=== PATIENT | female | born 1935 | race Caucasian/White ===

== ENCOUNTER 2016-08-30 09:26 | Inpatient (IN) | payer OTHER ==
[2016-08-30] MEDS ORDERED: methylPREDNISolone NA SUCC 125 MG/2 ML VIAL ONE (09:33)
[2016-08-30] MEDS ORDERED: ALBUTEROL SO4 0.083% IH SOL 2.5 MG/3 ML VIAL.NEB. NEB ONE ×2 (09:33)
[2016-08-30] MEDS ORDERED: methylPREDNISolone NA SUCC 125 MG/2 ML VIAL IVPB ONE (09:33)
--- NOTE | 2016-08-30 09:40 | PDOC ---
History of Present Illness - General History Source: Patient, EMS, Family, Old Records Exam Limitations: Other (respiratory distress) - History of Present Illness Initial Comments: 08/30/16 09:43 The patient is an 81 year old female with past medical history of hypertension, hyperlipidemia, diabetes mellitus, CAD (with stents x2), COPD, CHF who arrives to the ED via EMS from home in respiratory distress that began 30 minutes prior to arrival. The patient states that she was able to sleep the entire night normally. When EMS arrived, the patients O2 sat was in the 80s. After receiving 10 of decadron and 3 duonebs, the patients O2 sat went up to 90. As per family, the patient was complaining of shortness of breath all week. PCP: Dr. Aman Russell <Fide Schmidt - Last Filed: 08/30/16 09:57> <Joseph Bustos - Last Filed: 08/30/16 10:16> - General Stated Complaint: DIFFICULTY BREATHING Time Seen by Provider: 08/30/16 09:32 Past History <Fide Schmidt - Last Filed: 08/30/16 09:57> - Past Medical History Anemia: No Asthma: No Cancer: No Cardiac Disorders: Yes (s/p stents x 2) CVA: No COPD: Yes CHF: Yes Dementia: No Diabetes: Yes GI Disorders: No Disorders: No HTN: Yes Hypercholesterolemia: Yes Liver Disease: No Seizures: No Thyroid Disease: No - Surgical History Abdominal Surgery: No Appendectomy: No Cardiac Surgery: Yes (stents) Cholecystectomy: No Lung Surgery: No Neurologic Surgery: No Orthopedic Surgery: Yes (Left wrist) - Immunization History Immunization Up to Date: Yes - Psycho/Social/Smoking Cessation Hx Anxiety: No Suicidal Ideation: No Smoking Status: No Smoking History: Current some day smoker Have you smoked in the past 12 months: Yes Number of Cigarettes Smoked Daily: 5 'Breaking Loose' booklet given: 08/31/11 Hx Alcohol Use: No Drug/Substance Use Hx: No Substance Use Type: None Hx Substance Use Treatment: No <Joseph Bustos - Last Filed: 08/30/16 10:16> - Past Medical History Allergies/Adverse Reactions: Allergies Allergy/AdvReac Type Severity Reaction Status Date / Time No Known Allergies Allergy Verified 11/01/13 14:51 Home Medications: Ambulatory Orders Diltiazem Cd [Cardizem Cd -] 240 mg PO DAILY 02/25/12 Rosuvastatin Calcium [Crestor] 20 mg PO HS 02/25/12 Aspirin [ASA -] 81 mg PO DAILY #0 tab.chew 02/29/12 Nicotine Patch [Nicoderm Patch -] 21 mg TD DAILY #0 patch 02/29/12 Glyburide 5 mg PO BID 11/01/13 Albuterol 2.5/Ipratropium 0.5 [Duoneb -] 1 neb NEB TIDR #120 vial 11/08/13 Furosemide [Lasix -] 40 mg PO DAILY #30 tablet 11/08/13 Metformin HCl [Glucophage -] 1,000 mg PO BIDI #60 tablet 11/08/13 Prednisone [Deltasone -] 10 mg PO DAILY #120 tablet 11/08/13 Salmeterol/Fluticasone [Advair 250Mcg/50Mcg -] 1 inh PO BID #1 11/08/13 Sitagliptin Phosphate [Januvia -] 50 mg PO DAILY@0700 #30 tablet 11/08/13 Valsartan [Diovan] 320 mg PO DAILY #30 tablet 11/08/13 Review of Systems - Review of Systems Able to Perform ROS?: No (clinical condition ) <Fide Schmidt - Last Filed: 08/30/16 09:57> *Physical Exam - Physical Exam Comments: 08/30/16 09:43 GENERAL: Awake, alert, oriented x3, in moderate distress HEAD: No signs of trauma ENT: Auricles normal inspection, hearing grossly normal, nares patent, oropharynx clear without exudates. Moist mucosa NECK: Positive JVD. Supple, no lymphadenopathy, or masses LUNGS: Wheezes in all lung zamora. No rales, no crackles HEART: Regular, tachycardic. Normal S1 and S2, no murmurs, rubs or gallops ABDOMEN: Soft, nontender, normoactive bowel sounds. No guarding, no rebound. No masses EXTREMITIES: Normal range of motion, no edema. No clubbing or cyanosis. No cords, erythema, or tenderness NEUROLOGICAL: Cranial nerves II through XII grossly intact. Normal speech. SKIN: Warm, Dry, normal turgor, no rashes or lesions noted. <Fide Schmidt - Last Filed: 08/30/16 09:57> Heart Score/ECG Review - ECG Intrepretation Comment:: 08/30/16 09:58 Squad ECG en route to ER: Sinus tachycardia at [address] and T wave changes ECG obtained at 09:35: Sinus tachycardia at 131 bpm. Possible left atrial enlargement, unchanged from prior ECG 01/2012. <BrayanFide - Last Filed: 08/30/16 09:57> ED Treatment Course - LABORATORY CBC & Chemistry Diagram: 08/30/16 09:31 08/30/16 09:31 - RADIOLOGY Radiograph Interpretation: 08/30/16 09:58 CXR as reviewed by Dr. Caldwell reports large heart with unfolded aorta. Congestive findings with right pleural fluid. <BrayanFide - Last Filed: 08/30/16 09:57> - LABORATORY CBC & Chemistry Diagram: 08/30/16 09:31 08/30/16 09:31 - RADIOLOGY Radiology Studies Ordered: Category Date Time Status CHEST X-RAY PORTABLE* [RAD] Stat Radiology 08/30/16 09:33 Ordered <Joseph Bustos - Last Filed: 08/30/16 10:16> Medical Decision Making - Critical Care Time Total Critical Care Time (minutes): 60 Critical Care Statement: The care of this patient involved high complexity decision making to prevent further life threatening deterioration of the patient 's condition and/or to evalute & treat vital organ system(s) failure or risk of failure. - Medical Decision Making 08/30/16 09:57 ABG obtained, patient placed on BiPAP. Solumedrol, lasix administered. 08/30/16 10:00 Dr. Wise present in ED, case and plan discussed. Patient will be admitted under his service. Call placed upstairs to ICU. Case discussed with MITESH Holder. Patient admitted to ICU. <sannataylorFide - Last Filed: 08/30/16 09:57> *DC/Admit/Observation/Transfer - Attestations Scribe Attestion: 08/30/16 09:56 Documentation prepared by Fide Schmidt, acting as medical assistant secretary for Joseph Bustos DO. <BrayanFide - Last Filed: 08/30/16 09:57> - Discharge Dispostion Admit: Yes - Attestations Physician Attestion: 08/30/16 09:39 I, Dr. Joseph Bustos, attest that this document has been prepared under my direction and personally reviewed by me in its entirety. I further attest, that it accurately reflects all work, treatment, procedures and medical decision -making performed by me. <Joseph Bustos - Last Filed: 08/30/16 10:16> Diagnosis at time of Disposition: COPD (chronic obstructive pulmonary disease) with acute bronchitis, Dyslipidemia Respiratory failure Qualifiers: Chronicity: acute Respiratory failure complication: hypoxia and hypercapnia Qualified Code(s): J96.01 - Acute respiratory failure with hypoxia; J96.02 - Acute respiratory failure with hypercapnia COPD (chronic obstructive pulmonary disease) Qualifiers: COPD type: chronic bronchitis Chronic bronchitis type: unspecified Qualified Code(s): J42 - Unspecified chronic bronchitis CHF (congestive heart failure) Qualifiers: Congestive heart failure type: unspecified congestive heart failure type Congestive heart failure chronicity: acute on chronic Qualified Code(s): I50.9 - Heart failure, unspecified Diabetes Qualifiers: Diabetes mellitus type: other specified (including YULISA) Diabetes mellitus complication status: with unspecified complications Diabetes mellitus care home insulin use: with care home use Qualified Code(s): E13.8 - Other specified diabetes mellitus with unspecified complications; Z79.4 - 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
[2016-08-30] MEDS ORDERED: DEXAMETHASONE SOD PHOSPHATE 10 MG/1 ML VIAL ONE (09:44)
[2016-08-30 09:45] LABS: ARTERIAL BLD GAS O2 SATURATION 93.3 % (90-98.9); ARTERIAL BLOOD GAS BASE EXCESS -5.6 meq/l (-2-2); ARTERIAL BLOOD GAS HCO3 22.5 meq/L (22-26); ARTERIAL BLOOD GAS PO2 81.8 mmHg (68-100)
[2016-08-30] MEDS ORDERED: ALBUTEROL SO4 2.5/IPRATROPIUM 0.5 INH SOL 3 ML VIAL.NEB. NEB ONE (09:45)
[2016-08-30 09:46] LABS: ALLENS TEST POSITIVE; ART PUNCT SITE LEFT RADIAL; LPM/O2% 5L; PT. ON O2? YES; TYPE OF O2 AEROSOL
[2016-08-30 09:49] LABS: BASOPHIL 0.5 % (0-2.0); EOSINOPHIL 3.2 % (0-4.5); MCH 30.1 pg (25.7-33.7); MCHC 32.5 g/dl (32.0-36.0); MEAN CELL VOLUME 92.4 fl (80-96); MEAN PLT VOLUME 10.2 fl (7.5-11.1); NEUTROPHILS 50.2 % (42.8-82.8); PLATELET COUNT 217 K/MM3 (134-434); RDW 14.4 % (11.6-15.6); WHITE BLOOD COUNT 13.1 K/mm3 (4.0-10.0)
[2016-08-30 09:50] LABS: ARTERIAL BLOOD GAS pH 7.21 (7.35-7.45)
[2016-08-30 09:53] LABS: METHEMOGLOBIN 0.8 % (0.4-1.5)
[2016-08-30] MEDS ORDERED: FUROSEMIDE 40 MG/4 ML INJECTABLE VIAL IVPUSH ONE (09:59)
[2016-08-30] MEDS ORDERED: CEFTRIAXONE 1 GM in DEXTROSE 5%-WATER - 50 ML IVPB ONE (09:59)
[2016-08-30] MEDS ORDERED: FUROSEMIDE 40 MG/4 ML INJECTABLE VIAL ONE ×2 (10:00→17:17)
[2016-08-30] MEDS ORDERED: CEFTRIAXONE 50 ML ONE (10:00)
[2016-08-30 10:08] LABS: INR 0.96 (0.82-1.09); PROTHROMBIN TIME (PATIENT) 10.6 SEC (9.98-11.88)
--- NOTE | 2016-08-30 10:12 | HP ---
Admitting History and Physical - Admission History of Present Illness: 81 Y/O FEMALE WITH H/O COPD AND CHF PRESENTS WITH SIGNIFICANT SOB THAT BEGAN THIS AM PT STATES HAS BEEN GETTING MORE SOB ON EXERTION RECENTLY - Past Medical History Cardiovascular: Yes: CAD (S/P STENTING), HTN, Hyperlipdemia Pulmonary: Yes: COPD, O2 Dependent Musculoskeletal: Yes: Chronic low back pain Endocrine: Yes: Diabetes Mellitus - Smoking History Smoking history: Current some day smoker Have you smoked in the past 12 months: Yes Aproximately how many cigarettes per day: 5 - Alcohol/Substance Use Hx Alcohol Use: No Home Medications - Allergies Allergies/Adverse Reactions: Allergies Allergy/AdvReac Type Severity Reaction Status Date / Time No Known Allergies Allergy Verified 08/30/16 10:14 - Home Medications Home Medications: Ambulatory Orders Diltiazem Cd [Cardizem Cd -] 240 mg PO DAILY 02/25/12 Rosuvastatin Calcium [Crestor] 20 mg PO HS 02/25/12 Aspirin [ASA -] 81 mg PO DAILY #0 tab.chew 02/29/12 Nicotine Patch [Nicoderm Patch -] 21 mg TD DAILY #0 patch 02/29/12 Glyburide 5 mg PO BID 11/01/13 Albuterol 2.5/Ipratropium 0.5 [Duoneb -] 1 neb NEB TIDR #120 vial 11/08/13 Furosemide [Lasix -] 40 mg PO DAILY #30 tablet 11/08/13 Metformin HCl [Glucophage -] 1,000 mg PO BIDI #60 tablet 11/08/13 Prednisone [Deltasone -] 10 mg PO DAILY #120 tablet 11/08/13 Salmeterol/Fluticasone [Advair 250Mcg/50Mcg -] 1 inh PO BID #1 11/08/13 Sitagliptin Phosphate [Januvia -] 50 mg PO DAILY@0700 #30 tablet 11/08/13 Valsartan [Diovan] 320 mg PO DAILY #30 tablet 11/08/13 Review of Systems - Review of Systems Cardiovascular: reports: Chest Pain Respiratory: reports: SOB, SOB on Exertion Gastrointestinal: denies: Abdominal Pain Genitourinary: reports: No Symptoms Neurological: denies: Change in LOC, Change in Speech Physical Examination Cardiovascular: Yes: Murmur, S1, S2 Respiratory: Yes: Diminished, On Venti-Mask, Rales Gastrointestinal: Yes: Normal Bowel Sounds, Soft Edema: Yes Labs: CBC, BMP 08/30/16 09:31 Imaging - Results Chest X-ray: Image Reviewed Problem List - Problems (1) CHF (congestive heart failure) Assessment/Plan: IV LASIX OXYGEN FOLLOW LABS CARDIO ICU MONITORING Code(s): I50.9 - HEART FAILURE, UNSPECIFIED Qualifiers: Congestive heart failure type: unspecified congestive heart failure type Congestive heart failure chronicity: acute on chronic Qualified Code(s): I50.9 - Heart failure, unspecified (2) COPD (chronic obstructive pulmonary disease) Assessment/Plan: NEBS STEROIDS PULM Code(s): J44.9 - CHRONIC OBSTRUCTIVE PULMONARY DISEASE, UNSPECIFIED Qualifiers : COPD type: chronic bronchitis Chronic bronchitis type: unspecified Qualified Code(s): J42 - Unspecified chronic bronchitis (3) Diabetes Assessment/Plan: BGM INSULIN Code(s): E11.9 - TYPE 2 DIABETES MELLITUS WITHOUT COMPLICATIONS Qualifiers: Diabetes mellitus type: other specified (including YULISA) Diabetes mellitus complication status: with unspecified complications Diabetes mellitus rat exterminator insulin use: with rat exterminator use Qualified Code(s): E13.8 - Other specified diabetes mellitus with unspecified complications (4) Respiratory failure Assessment/Plan: BIPAP ABOVE PT NOT A DNI Code(s): J96.90 - RESPIRATORY FAILURE, UNSP, UNSP W HYPOXIA OR HYPERCAPNIA Qualifiers: Chronicity: acute Respiratory failure complication: hypoxia and hypercapnia Qualified Code(s): J96.01 - Acute respiratory failure with hypoxia (5) CAD S/P percutaneous coronary angioplasty Assessment/Plan: FOLLOW CE Code(s): I25.10 - ATHSCL HEART DISEASE OF [place] CORONARY ARTERY W/O ANG PCTRS Z98.61 - CORONARY ANGIOPLASTY STATUS
[2016-08-30 10:14] LABS: ALBUMIN 3.6 g/dl (3.4-5.0); ANION GAP 11 (8-16); BILIRUBIN,TOTAL 0.4 mg/dL (0.2-1.0); CALCIUM 8.8 mg/dL (8.5-10.1); CO2 24 mmol/L (21-32); GLUCOSE,RANDOM 298 mg/dL (74-106); SGOT/AST 24 U/L (15-37); SGPT/ALT 21 U/L (12-78)
[2016-08-30 10:18] VITALS: BMI 27.4
[2016-08-30 10:18] LABS: ALK PHOS 83 U/L (45-117); TOT PROT 6.9 g/dl (6.4-8.2); TROPONIN I 0.03 ng/ml (0.00-0.05)
[2016-08-30 10:28] LABS: URINE APPEARANCE CLEAR; URINE BILIRUBIN NEGATIVE (NEGATIVE); URINE COLOR STRAW; URINE GLUCOSE (UA) 3+ (NEGATIVE); URINE KETONE NEGATIVE (NEGATIVE); URINE LEUK ESTERASE NEGATIVE (NEGATIVE); URINE NITRITE NEGATIVE (NEGATIVE); URINE UROBILINOGEN NEGATIVE E.U./dl (0.2-1.0)
[2016-08-30 10:30] LABS: URINE BLOOD 1+ (NEGATIVE); URINE PROTEIN 2+ (NEGATIVE)
[2016-08-30 10:33] LABS: GRANULAR CASTS 3 /lpf; URINE HYALINE CAST 1 /lpf; URINE MUCUS RARE; URINE RBC 3 /hpf (0-3); URINE WBC 12 /hpf (3-5)
[2016-08-30] MEDS ORDERED: POTASSIUM CHLORIDE TABS 20 MEQ TABLET.ER (FP) PO ONE ×2 (10:45→10:55)
[2016-08-30 11:01] LABS: ALLENS TEST POSITIVE; ART PUNCT SITE RIGHT RADIAL; ARTERIAL BLD GAS O2 SATURATION 99.6 % (90-98.9); ARTERIAL BLOOD GAS BASE EXCESS -0.5 meq/l (-2-2); ARTERIAL BLOOD GAS HCO3 25.8 meq/L (22-26); ARTERIAL BLOOD GAS pH 7.31 (7.35-7.45); LPM/O2% 50%; PT. ON O2? YES; TYPE OF O2 BIPAP
[2016-08-30 11:02] LABS: VENT RATE 16
[2016-08-30] MEDS ORDERED: ACETAMINOPHEN 325 MG TABLET (FP) PO PRN (11:09)
[2016-08-30] MEDS: PANTOPRAZOLE 40 MG TABLET (FP) PO SCH (11:32)
[2016-08-30] MEDS: ALBUTEROL SO4 2.5/IPRATROPIUM 0.5 INH SOL 3 ML VIAL.NEB. NEB SCH ×3 (12:39→23:31)
--- NOTE | 2016-08-30 13:09 | CONSULT ---
Consult Consult Specialty:: PULMONARY / CRITICAL CARE MEDICINE Referred by:: Dr Russell Reason for Consultation:: respiratory failure - History of Present Illness Chief Complaint: SOB History of Present Illness: Briefly, 81 y/o woman with poorly controlled DM2, COPD, CAD, CHF (on home Oxygen 2L) who presents to the ED via EMS with SOB and hypoxia. She denied fevers, chills, cough and sick contacts. In the ED she was in significant distress, ABG showed mixed hypercapnic/hypoxemic respiratory failure. She was given nebs, steroids, abx, Lasix and placed on NIPPV. CXR shows pulm edema, BNP is >1300. - History Source History Provided By: Patient, Family Member, Medical Record Limitations to Obtaining History: No Limitations - Past Medical History Cardio/Vascular: Yes: CAD (S/P STENTING), HTN, Hyperlipdemia Pulmonary: Yes: COPD, O2 Dependent ...: No Musculoskeletal: Yes: Chronic low back pain Endocrine: Yes: Diabetes Mellitus - Alcohol/Substance Use Hx Alcohol Use: No - Smoking History Smoking history: Former smoker Have you smoked in the past 12 months: No Aproximately how many cigarettes per day: 5 If you are a former smoker, when did you quit?: 3-4 years ago Home Medications - Allergies Allergies/Adverse Reactions: Allergies Allergy/AdvReac Type Severity Reaction Status Date / Time No Known Allergies Allergy Verified 08/30/16 10:14 - Home Medications Home Medications: Ambulatory Orders Diltiazem Cd [Cardizem Cd -] 240 mg PO DAILY 02/25/12 Rosuvastatin Calcium [Crestor] 20 mg PO HS 02/25/12 Aspirin [ASA -] 81 mg PO DAILY #0 tab.chew 02/29/12 Nicotine Patch [Nicoderm Patch -] 21 mg TD DAILY #0 patch 02/29/12 Glyburide 5 mg PO BID 11/01/13 Albuterol 2.5/Ipratropium 0.5 [Duoneb -] 1 neb NEB TIDR #120 vial 11/08/13 Furosemide [Lasix -] 40 mg PO DAILY #30 tablet 11/08/13 Metformin HCl [Glucophage -] 1,000 mg PO BIDI #60 tablet 11/08/13 Prednisone [Deltasone -] 10 mg PO DAILY #120 tablet 11/08/13 Salmeterol/Fluticasone [Advair 250Mcg/50Mcg -] 1 inh PO BID #1 11/08/13 Sitagliptin Phosphate [Januvia -] 50 mg PO DAILY@0700 #30 tablet 11/08/13 Valsartan [Diovan] 320 mg PO DAILY #30 tablet 11/08/13 Family Disease History - Family Disease History Family History: Unremarkable Review of Systems - Review of Systems Constitutional: reports: Weakness. denies: Chills, Fever Eyes: reports: No Symptoms HENT: reports: No Symptoms Neck: reports: No Symptoms Cardiovascular: reports: Shortness of Breath Respiratory: reports: Exercise Intolerance, Orthopnea, SOB on Exertion, Wheezing Gastrointestinal: reports: No Symptoms Genitourinary: reports: No Symptoms Integumentary: reports: No Symptoms Neurological: reports: No Symptoms Endocrine: reports: No Symptoms Physical Exam Vital Signs: Vital Signs Temperature 97.4 F L 08/30/16 12:10 Pulse Rate 98 H 08/30/16 12:51 Respiratory Rate 26 H 08/30/16 12:51 Blood Pressure 124/86 08/30/16 12:51 O2 Sat by Pulse Oximetry (%) 95 08/30/16 12:50 Constitutional: Yes: Mild Distress Eyes: Yes: WNL HENT: Yes: WNL Neck: Yes: WNL Cardiovascular: Yes: Tachycardia, S1, S2 Respiratory: Yes: Rales Gastrointestinal: Yes: Normal Bowel Sounds, Abdomen, Obese. No: Tenderness Musculoskeletal: Yes: WNL Extremities: Yes: WNL Edema: Yes Edema: LLE: Trace, RLE: Trace Peripheral Pulses WNL: Yes Integumentary: Yes: WNL Neurological: Yes: WNL Labs: CBC, BMP 08/30/16 09:31 08/30/16 09:31 Imaging - Results Chest X-ray: Report Reviewed, Image Reviewed Problem List - Problems (1) CHF (congestive heart failure) Code(s): I50.9 - HEART FAILURE, UNSPECIFIED Qualifiers: Congestive heart failure type: unspecified congestive heart failure type Congestive heart failure chronicity: acute on chronic Qualified Code(s): I50.9 - Heart failure, unspecified (2) COPD (chronic obstructive pulmonary disease) Code(s): J44.9 - CHRONIC OBSTRUCTIVE PULMONARY DISEASE, UNSPECIFIED Qualifiers : COPD type: chronic bronchitis Chronic bronchitis type: unspecified Qualified Code(s): J42 - Unspecified chronic bronchitis (3) Diabetes Code(s): E11.9 - TYPE 2 DIABETES MELLITUS WITHOUT COMPLICATIONS Qualifiers: Diabetes mellitus type: other specified (including YULISA) Diabetes mellitus complication status: with unspecified complications Diabetes mellitus custodial insulin use: with custodial use Qualified Code(s): E13.8 - Other specified diabetes mellitus with unspecified complications (4) Respiratory failure Code(s): J96.90 - RESPIRATORY FAILURE, UNSP, UNSP W HYPOXIA OR HYPERCAPNIA Qualifiers: Chronicity: acute Respiratory failure complication: hypoxia and hypercapnia Qualified Code(s): J96.01 - Acute respiratory failure with hypoxia (5) CAD S/P percutaneous coronary angioplasty Code(s): I25.10 - ATHSCL HEART DISEASE OF [place] CORONARY ARTERY W/O ANG PCTRS Z98.61 - CORONARY ANGIOPLASTY STATUS Assessment/Plan Hypercapnic/Hypoxemic respiratory failure likely volume overload (pulm edema) markedly improved with diuresis CHF CAD DM2 COPD on home O2 -Lasix for net out -NIPPV as needed -Nebs -Quick steroid taper - she is not bronchospastic -Restart home meds -Diabetic diet -Fingersticks/Insulin as needed Monitor in ICU Thank you for this interesting consult Abilio Gardiner Pulm/Critical Care PLATE FORMER CCT 45min
[2016-08-30 14:26] LABS: TROPONIN I 0.13 ng/ml (0.00-0.05)
[2016-08-30] MEDS: methylPREDNISolone NA SUCC 40 MG/1 ML VIAL IVPB SCH ×2 (14:44→21:00)
[2016-08-30] MEDS: FUROSEMIDE 40 MG/4 ML INJECTABLE VIAL IVPB SCH (14:44)
[2016-08-30] MEDS: NITROGLYCERIN 2% OINTMENT - 1GM PACKET TD SCH ×2 (14:45→19:23)
--- NOTE | 2016-08-30 14:59 | CON.CARD ---
Consult Consult Specialty:: cardiology Referred by:: carla Reason for Consultation:: chf - History of Present Illness Chief Complaint: sob History of Present Illness: 81 year old female with pmhx of htn, hld, dm, cad s/p stents in past, ?systolic chf, and copd presenting with sob. Patient reports her sob has been worsening but this morning acutely worsened at rest. No chest pain or palpitations. Does not always take her meds. Does not take water pills which had been recommended in past. - History Source History Provided By: Patient, Family Member, Medical Record - Past Medical History Cardio/Vascular: Yes: CAD (S/P STENTING), HTN, Hyperlipdemia Pulmonary: Yes: COPD, O2 Dependent ...: No Musculoskeletal: Yes: Chronic low back pain Endocrine: Yes: Diabetes Mellitus - Alcohol/Substance Use Hx Alcohol Use: No - Smoking History Smoking history: Former smoker Have you smoked in the past 12 months: No Aproximately how many cigarettes per day: 5 If you are a former smoker, when did you quit?: 3-4 years ago Home Medications - Allergies Allergies/Adverse Reactions: Allergies Allergy/AdvReac Type Severity Reaction Status Date / Time No Known Allergies Allergy Verified 08/30/16 10:14 - Home Medications Home Medications: Ambulatory Orders Diltiazem Cd [Cardizem Cd -] 240 mg PO DAILY 02/25/12 Rosuvastatin Calcium [Crestor] 20 mg PO HS 02/25/12 Aspirin [ASA -] 81 mg PO DAILY #0 tab.chew 02/29/12 Nicotine Patch [Nicoderm Patch -] 21 mg TD DAILY #0 patch 02/29/12 Glyburide 5 mg PO BID 11/01/13 Albuterol 2.5/Ipratropium 0.5 [Duoneb -] 1 neb NEB TIDR #120 vial 11/08/13 Furosemide [Lasix -] 40 mg PO DAILY #30 tablet 11/08/13 Metformin HCl [Glucophage -] 1,000 mg PO BIDI #60 tablet 11/08/13 Prednisone [Deltasone -] 10 mg PO DAILY #120 tablet 11/08/13 Salmeterol/Fluticasone [Advair 250Mcg/50Mcg -] 1 inh PO BID #1 11/08/13 Sitagliptin Phosphate [Januvia -] 50 mg PO DAILY@0700 #30 tablet 11/08/13 Valsartan [Diovan] 320 mg PO DAILY #30 tablet 11/08/13 Vital Signs: Vital Signs Temperature 97.4 F L 08/30/16 12:10 Pulse Rate 89 08/30/16 13:55 Respiratory Rate 26 H 08/30/16 12:51 Blood Pressure 124/86 08/30/16 12:51 O2 Sat by Pulse Oximetry (%) 97 08/30/16 13:55 Constitutional: Yes: No Distress Respiratory: Yes: Diminished (bibasilar crackles) Gastrointestinal: Yes: Normal Bowel Sounds, Soft Cardiovascular: Yes: Regular Rate and Rhythm, Tachycardia JVD: Yes Carotid Bruit: No Heart Sounds: Yes: S1, S2 Murmur: Yes: Systolic Murmur, Grade 3 (HSM 3/6 apex to axilla) Edema: LLE: Trace, RLE: Trace - Other Data Labs, Other Data: INR, PTT INR 0.96 (0.82-1.09) 08/30/16 09:31 Troponin, BNP 08/30/16 13:56 Troponin I 0.13 H Troponin, BNP 08/30/16 13:56 Troponin I 0.13 H Imaging - Results X-ray: Report Reviewed EKG: Image Reviewed Problem List - Problems (1) CHF (congestive heart failure) Code(s): I50.9 - HEART FAILURE, UNSPECIFIED Qualifiers: Congestive heart failure type: unspecified congestive heart failure type Congestive heart failure chronicity: acute on chronic Qualified Code(s): I50.9 - Heart failure, unspecified (2) CAD S/P percutaneous coronary angioplasty Code(s): I25.10 - ATHSCL HEART DISEASE OF [place] CORONARY ARTERY W/O ANG PCTRS Z98.61 - CORONARY ANGIOPLASTY STATUS Assessment/Plan 81 year old female with pmhx of htn, hld, dm, cad s/p stents in past, ?systolic chf, and copd presenting with sob. 1) Acute on chronic systolic CHF Responded well to IV lasix would lower to 40mg IV bid monitor I/O's and lytes and bun/cr Daily weights Continue home valsartan Will try to clarify why not on Bblocker and on ccb when patient with cad and CHF Need to get echo results from Dr. Russell's office tomorrow as reports leaky valve and with MR murmur EKG: sinus tachy with inferior and anteroseptal infarct no acute st changes. Monitor on tele. Trend CE's x3 Daily EKG 2) CAD -aspirin/statin -Echo results -Will attempt to find out why not on bblocker chronically -NST 07/18/15 with moderate inferior and inferolateral scar Will follow with you
[2016-08-30] MEDS ORDERED: PT OWN MED DRAWER 7, Y5N ONE (21:36)
[2016-08-30] MEDS: MUPIROCIN 2% TOPICAL OINTMENT FOR DECOLONIZATION NS SCH (21:52)
[2016-08-30] MEDS: ROSUVASTATIN CA 20 MG TABLET (FP) PO SCH (21:53)
[2016-08-30] MEDS: CHLORHEXIDINE GLUCONATE 4% CLEANSER FOR DECOLONIZATION TP SCH (21:53)
[2016-08-30] MEDS: INSULIN SLIDING SCALE (NOVOLOG) 1 VIAL SQ SCH (22:18)
[2016-08-31] MEDS: methylPREDNISolone NA SUCC 40 MG/1 ML VIAL IVPB SCH ×4 (03:00→21:00)
[2016-08-31] MEDS ORDERED: INSULIN (NOVOLOG) ASPART 100 UNITS/ML 10ML VIAL ONE (03:08)
[2016-08-31] MEDS ORDERED: INSULIN REGULAR HUMAN 100 UNITS/ML *VIAL ONE (03:08)
[2016-08-31] MEDS: FUROSEMIDE 40 MG/4 ML INJECTABLE VIAL IVPB SCH (05:59)
[2016-08-31] MEDS: NITROGLYCERIN 2% OINTMENT - 1GM PACKET TD SCH ×4 (05:59→17:22)
[2016-08-31] MEDS: INSULIN SLIDING SCALE (NOVOLOG) 1 VIAL SQ SCH ×4 (06:00→22:43)
[2016-08-31 06:02] LABS: MCH 29.6 pg (25.7-33.7); MCHC 33.2 g/dl (32.0-36.0); MEAN CELL VOLUME 89.2 fl (80-96); MEAN PLT VOLUME 10.6 fl (7.5-11.1); NEUTROPHILS 94.6 % (42.8-82.8); PLATELET COUNT 187 K/MM3 (134-434); RDW 14.4 % (11.6-15.6); WHITE BLOOD COUNT 12.7 K/mm3 (4.0-10.0)
[2016-08-31] MEDS: ALBUTEROL SO4 2.5/IPRATROPIUM 0.5 INH SOL 3 ML VIAL.NEB. NEB SCH ×4 (06:13→23:12)
[2016-08-31 06:38] LABS: ALBUMIN 3.9 g/dl (3.4-5.0); ANION GAP 13 (8-16); CALCIUM 9.4 mg/dL (8.5-10.1); CO2 29 mmol/L (21-32); CREATININE 1.4 mg/dL (0.55-1.02); GLUCOSE,RANDOM 238 mg/dL (74-106)
[2016-08-31 06:42] LABS: ALK PHOS 79 U/L (45-117); BILIRUBIN,TOTAL 0.5 mg/dL (0.2-1.0); SGOT/AST 22 U/L (15-37); SGPT/ALT 23 U/L (12-78); TOT PROT 7.3 g/dl (6.4-8.2); TROPONIN I 0.21 ng/ml (0.00-0.05)
[2016-08-31] MEDS ORDERED: PT OWN MED DRAWER 7, Y5N ONE ×2 (08:59→20:47)
[2016-08-31] MEDS: VALSARTAN 160 MG TABLET (UD) PO SCH (09:06)
[2016-08-31] MEDS: PANTOPRAZOLE 40 MG TABLET (FP) PO SCH (09:06)
[2016-08-31] MEDS: ASPIRIN 81 MG CHEWABLE TABLETS PO SCH (09:06)
[2016-08-31] MEDS: MUPIROCIN 2% TOPICAL OINTMENT FOR DECOLONIZATION NS SCH ×2 (09:07→21:02)
--- NOTE | 2016-08-31 10:11 | EKG ---
Test Reason : Blood Pressure : / mmHG Vent. Rate : 086 BPM Atrial Rate : 086 BPM P-R Int : 232 ms QRS Dur : 120 ms QT Int : 450 ms P-R-T Axes : 050 027 106 degrees QTc Int : 538 ms SINUS RHYTHM WITH 1ST DEGREE A-V BLOCK LEFT VENTRICULAR HYPERTROPHY WITH QRS WIDENING LATERAL INFARCT (CITED ON OR BEFORE 30-AUG-2016) INFERIOR INFARCT (CITED ON OR BEFORE 30-AUG-2016) ABNORMAL ECG WHEN COMPARED WITH ECG OF 30-AUG-2016 09:35, [place] INTERVAL HAS INCREASED VENT. RATE HAS DECREASED BY [address] SEGMENT CHANGES Confirmed by OSIRIS ANDRADE MD ([id number]) on 08/31/2016 10:11:17 AM Referred By: JANICE HARDY Confirmed By:OSIRIS ANDRADE MD
--- NOTE | 2016-08-31 10:39 | EKG ---
Test Reason : Blood Pressure : / mmHG Vent. Rate : 131 BPM Atrial Rate : 131 BPM P-R Int : 178 ms QRS Dur : 112 ms QT Int : 284 ms P-R-T Axes : 049 052 047 degrees QTc Int : 419 ms SINUS TACHYCARDIA POSSIBLE LEFT ATRIAL ENLARGEMENT CANNOT RULE OUT INFERIOR INFARCT , AGE UNDETERMINED POSSIBLE ANTERIOR INFARCT , AGE UNDETERMINED ABNORMAL ECG WHEN COMPARED WITH ECG OF 02-NOV-2013 09:12, VENT. RATE HAS INCREASED Confirmed by LUPE PACHECO, OSIRIS ([id number]) on 08/31/2016 10:39:15 AM Referred By: Confirmed By:OSIRIS ANDRADE MD
[2016-08-31 12:10] LABS: TROPONIN I 0.15 ng/ml (0.00-0.05)
--- NOTE | 2016-08-31 12:23 | PN ---
Physical Exam: SUBJECTIVE: Patient states she feels better this morning, but was not able to sleep until 7am. Denies current shortness of breath, chest pain, nausea, vomiting, fever, chills. She states she began having bilateral leg cramps, for which she has to sit up until they anastasiya. OBJECTIVE: Vital Signs Period Temp Pulse Resp BP Sys/Lam Pulse Ox Last 24 Hr 97.6 F-98.3 F 22-98 20-94 119-167/58-94 95-98 GENERAL: The patient is awake, alert, and fully oriented, in no acute distress. HEAD: Normal with no signs of trauma. EYES: PERRL, extraocular movements intact, sclera anicteric, conjunctiva clear. No ptosis. ENT: Ears normal, nares patent, oropharynx clear without exudates, moist mucous membranes. NECK: Trachea midline, full range of motion, supple. LUNGS: Breath sounds equal, clear to auscultation bilaterally, no wheezes, no crackles, no accessory muscle use. HEART: Regular rate and rhythm, S1, S2 without murmur, rub or gallop. ABDOMEN: Soft, nontender, nondistended, normoactive bowel sounds, no guarding, no rebound, no hepatosplenomegaly, no masses. EXTREMITIES: 2+ pulses, warm, well-perfused, no edema. NEUROLOGICAL: Cranial nerves II through XII grossly intact. Normal speech, gait not observed. PSYCH: Normal mood, normal affect. SKIN: Warm, dry, normal turgor, no rashes or lesions noted CBCD WBC 12.7 K/mm3 (4.0-10.0) H 08/31/16 05:05 RBC 4.22 M/mm3 (3.60-5.2) 08/31/16 05:05 Hgb 12.5 GM/dL (10.7-15.3) 08/31/16 05:05 Hct 37.7 % (32.4-45.2) 08/31/16 05:05 MCV 89.2 fl (80-96) 08/31/16 05:05 MCHC 33.2 g/dl (32.0-36.0) 08/31/16 05:05 RDW 14.4 % (11.6-15.6) 08/31/16 05:05 Plt Count 187 K/MM3 (134-434) 08/31/16 05:05 MPV 10.6 fl (7.5-11.1) 08/31/16 05:05 CMP Sodium 139 mmol/L (136-145) 08/31/16 05:05 Potassium 3.8 mmol/L (3.5-5.1) 08/31/16 05:05 Chloride 97 mmol/L (98-107) L 08/31/16 05:05 Carbon Dioxide 29 mmol/L (21-32) D 08/31/16 05:05 Anion Gap 13 (8-16) 08/31/16 05:05 BUN 36 mg/dL (7-18) H D 08/31/16 05:05 Creatinine 1.4 mg/dL (0.55-1.02) H D 08/31/16 05:05 Creat Clearance w eGFR 35.91 (>60) 08/31/16 05:05 Calcium 9.4 mg/dL (8.5-10.1) 08/31/16 05:05 Total Bilirubin 0.5 mg/dL (0.2-1.0) D 08/31/16 05:05 AST 22 U/L (15-37) 08/31/16 05:05 ALT 23 U/L (12-78) 08/31/16 05:05 Alkaline Phosphatase 79 U/L (45-117) 08/31/16 05:05 Total Protein 7.3 g/dl (6.4-8.2) 08/31/16 05:05 Albumin 3.9 g/dl (3.4-5.0) 08/31/16 05:05 Intake & Output 08/28/16 08/29/16 08/30/16 08/31/16 23:59 23:59 23:59 23:59 Intake Total 2150 680 Output Total 4750 900 Balance -2600 -220 Weight 160 lb 156 lb 11.2 oz Microbiology 08/30/16 10:16 Urine Culture - Final Urine - Urine - Catheterized NO GROWTH OBTAINED 08/30/16 09:31 Blood Culture - Preliminary Blood - Peripheral Venous NO GROWTH OBTAINED AFTER 24 HOURS, INCUBATION TO CONTINUE FOR 4 DAYS. 08/30/16 09:31 Blood Culture - Preliminary Blood - Peripheral Venous NO GROWTH OBTAINED AFTER 24 HOURS, INCUBATION TO CONTINUE FOR 4 DAYS. Active Medications Generic Name Dose Route Start Last Admin Trade Name Freq PRN Reason Stop Dose Admin Acetaminophen 650 mg 08/30/16 11:09 Tylenol - PO Q4H PRN FEVER OR PAIN Albuterol/Ipratropium 1 amp 08/30/16 12:00 08/31/16 06:13 Duoneb - NEB 1 amp QIDR FRAN Administration Aspirin 81 mg 08/31/16 10:00 08/31/16 09:06 Asa - PO 81 mg DAILY FRAN Administration Chlorhexidine Gluconate 1 applic 08/30/16 22:00 08/30/16 21:53 Hibiclens For Decolonization - TP 1 applic HS FRAN Administration Diltiazem HCl 240 mg 08/31/16 10:00 08/31/16 09:06 Cardizem Cd - PO 240 mg DAILY FRAN Administration Furosemide 80 mg 08/30/16 14:00 08/31/16 05:59 Lasix Injection - IVPB 80 mg BID@0600,1400 FRAN Administration Insulin Aspart 0 vial 08/30/16 22:00 08/31/16 06:00 Novolog Vial Sliding Scale - SQ 4 units ACHS FRAN Administration Methylprednisolone Sodium Succinate 40 mg 08/30/16 15:00 08/31/16 09:06 Solu-Medrol - IVPB 40 mg Q6H-IV FRAN Administration Mupirocin 1 applic 08/30/16 22:00 08/31/16 09:07 Bactroban Ointment (For Decolonization) - NS 09/04/16 21:59 1 applic BID FRAN Administration Nitroglycerin 1 inch 08/30/16 12:00 08/31/16 11:40 Nitro-Bid 2% Paste - TD 1 inch Q6HPO FRAN Administration Pantoprazole Sodium 40 mg 08/30/16 11:15 08/31/16 09:06 Protonix - PO 40 mg DAILY FRAN Administration Rosuvastatin Calcium 20 mg 08/30/16 22:00 08/30/16 21:53 Crestor - PO 20 mg HS FRAN Administration Valsartan 320 mg 08/31/16 10:00 08/31/16 09:06 Diovan - PO 320 mg DAILY FRAN Administration Patient's EKG on admission showed sinus tachycardia w/ anteroseptal infarct Imaging: CXR 08/30: enlarged heart, unfolded aorta, pleural fluid noted on the R CXR 08/31: improved CXR, no evidence of pneumonia, CHF, pneumothorax ASSESSMENT/PLAN: 81 year old female with past medical history of CHF, COPD, HTN, HLD, DMII, CAD s /p 2 stents admitted to ICU for acute respiratory distress Pulmonary: acute - Clinically improving -Pulmonary edema/acute on chronic respiratory failure responded well to Lasix IV -Continue albuterol/ipratropium PRN -Continue methylprednisolone -hold lasix until tomorrow while monitoring BUN/Cre (36/1.4 on 08/31) -possible transfer to med/surg tomorrow -monitor O2 sats, keep >90% Cardiac: Patient initial elevation of troponins 0.03 --> 0.13 --> 0.21, repeat 6 hours later showed a decrease to 0.15 -hold diovan until tomorrow (monitor BUN/cre) -continue to monitor trops -continue statin, nitroglycerin, and aspirin -DVT prophylaxis Renal: BUN/Cre: 36/1.4 -Continue to monitor BUN/Cre -Monitor urine output Endocrine: Fingerstick glucose found to be 448, possibly due to steroid use -Continue insulin on sliding scale GI: -continue pantoprazole proph Dispo: -possible transfer to med/surg tomorrow Problem List - Problems (1) CHF (congestive heart failure) Code(s): I50.9 - HEART FAILURE, UNSPECIFIED Qualifiers: Qualified Code(s): I50.9 - Heart failure, unspecified (2) COPD (chronic obstructive pulmonary disease) Code(s): J44.9 - CHRONIC OBSTRUCTIVE PULMONARY DISEASE, UNSPECIFIED Qualifiers : Qualified Code(s): J42 - Unspecified chronic bronchitis (3) Respiratory failure Code(s): J96.90 - RESPIRATORY FAILURE, UNSP, UNSP W HYPOXIA OR HYPERCAPNIA Qualifiers: Qualified Code(s): J96.01 - Acute respiratory failure with hypoxia Visit type - Emergency Visit Emergency Visit: No - New Patient This patient is new to me today: No - Critical Care Critical Care patient: No
--- NOTE | 2016-08-31 12:30 | PN ---
Teaching Attending Note Name of Resident: Gallo Talley ATTENDING PHYSICIAN STATEMENT I saw and evaluated the patient. I reviewed the resident's note and discussed the case with the resident. I agree with the resident's findings and plan as documented. SUBJECTIVE: Pt seen and examined in the ICU. States breathing is improving. No chest pain. + nonproductive cough. No fevers or chills. OBJECTIVE: Last Vital Signs Temp Pulse Resp BP Pulse Ox 98.3 F 88 22 148/60 95 08/31/16 09:25 08/31/16 10:00 08/31/16 12:00 08/31/16 12:00 08/31/16 11:01 Intake & Output 08/28/16 08/29/16 08/30/16 08/31/16 23:59 23:59 23:59 23:59 Intake Total 2150 680 Output Total 4750 900 Balance -2600 -220 Weight 160 lb 156 lb 11.2 oz Gen: mildly tachypneic with speaking Heart: RRR Lung: distant breath sounds Abd: soft, nontender Ext: no edema CBC, BMP 08/31/16 05:05 08/31/16 11:14 Active Medications Acetaminophen (Tylenol -) 650 mg PO Q4H PRN PRN Reason: FEVER OR PAIN Albuterol/Ipratropium (Duoneb -) 1 amp NEB QIDR [facility] Last Admin: 08/31/16 06:13 Dose: 1 amp Aspirin (Asa -) 81 mg PO DAILY [facility] Last Admin: 08/31/16 09:06 Dose: 81 mg Chlorhexidine Gluconate (Hibiclens For Decolonization -) 1 applic TP HS [facility] Last Admin: 08/30/16 21:53 Dose: 1 applic Diltiazem HCl (Cardizem Cd -) 240 mg PO DAILY [facility] Last Admin: 08/31/16 09:06 Dose: 240 mg Furosemide (Lasix Injection -) 80 mg IVPB BID@0600,1400 [facility] Last Admin: 08/31/16 05:59 Dose: 80 mg Insulin Aspart (Novolog Vial Sliding Scale -) 0 vial SQ ACHS [facility] Last Admin: 08/31/16 12:18 Dose: 14 units Methylprednisolone Sodium Succinate (Solu-Medrol -) 40 mg IVPB Q6H-IV [facility] Last Admin: 08/31/16 09:06 Dose: 40 mg Mupirocin (Bactroban Ointment (For Decolonization) -) 1 applic NS BID [facility] Stop: 09/04/16 21:59 Last Admin: 08/31/16 09:07 Dose: 1 applic Nitroglycerin (Nitro-Bid 2% Paste -) 1 inch TD Q6HPO [facility] Last Admin: 08/31/16 11:40 Dose: 1 inch Pantoprazole Sodium (Protonix -) 40 mg PO DAILY [facility] Last Admin: 08/31/16 09:06 Dose: 40 mg Rosuvastatin Calcium (Crestor -) 20 mg PO HS [facility] Last Admin: 08/30/16 21:53 Dose: 20 mg Valsartan (Diovan -) 320 mg PO DAILY [facility] Last Admin: 08/31/16 09:06 Dose: 320 mg ASSESSMENT AND PLAN: Acute on Chronic Hypoxic and Hypercapneic Respiratory Failure improving Acute on Chronic Systolic Heart Failure +Troponins likely demand ischemia r/o COPD Exacerbation Acute Kidney Injury CAD DM - hold lasix today - monitor urine output, creatinine - continue medrol, can taper in AM if continues to improve - inhaled bronchodilators - O2 to keep SpO2 >90% - glucose control while on systemic steroids - OOB to chair - document troponin peak - echocardiogram - DVT prophylaxis
[2016-08-31 13:28] LABS: MAGNESIUM 2.1 mg/dL (1.8-2.4)
--- NOTE | 2016-08-31 14:00 | PN ---
Progress Note, Physician Chief Complaint: SOB History of Present Illness: ORIGINALLY CAME IN WITH CHF, PULMONARY CONGESTION AND SOB, IS COMFORTABLE IN BED , NAD, AXOX3 - Current Medication List Current Medications: Active Medications Acetaminophen (Tylenol -) 650 mg PO Q4H PRN PRN Reason: FEVER OR PAIN Albuterol/Ipratropium (Duoneb -) 1 amp NEB QIDR [facility] Last Admin: 08/31/16 11:10 Dose: 1 amp Aspirin (Asa -) 81 mg PO DAILY [facility] Last Admin: 08/31/16 09:06 Dose: 81 mg Chlorhexidine Gluconate (Hibiclens For Decolonization -) 1 applic TP HS [facility] Last Admin: 08/30/16 21:53 Dose: 1 applic Diltiazem HCl (Cardizem Cd -) 240 mg PO DAILY [facility] Last Admin: 08/31/16 09:06 Dose: 240 mg Furosemide (Lasix Injection -) 80 mg IVPB BID@0600,1400 [facility] Last Admin: 08/31/16 05:59 Dose: 80 mg Insulin Aspart (Novolog Vial Sliding Scale -) 0 vial SQ ACHS [facility] Last Admin: 08/31/16 12:18 Dose: 14 units Methylprednisolone Sodium Succinate (Solu-Medrol -) 40 mg IVPB Q6H-IV [facility] Last Admin: 08/31/16 09:06 Dose: 40 mg Mupirocin (Bactroban Ointment (For Decolonization) -) 1 applic NS BID [facility] Stop: 09/04/16 21:59 Last Admin: 08/31/16 09:07 Dose: 1 applic Nitroglycerin (Nitro-Bid 2% Paste -) 1 inch TD Q6HPO [facility] Last Admin: 08/31/16 11:40 Dose: 1 inch Pantoprazole Sodium (Protonix -) 40 mg PO DAILY [facility] Last Admin: 08/31/16 09:06 Dose: 40 mg Rosuvastatin Calcium (Crestor -) 20 mg PO HS [facility] Last Admin: 08/30/16 21:53 Dose: 20 mg Valsartan (Diovan -) 320 mg PO DAILY [facility] Last Admin: 08/31/16 09:06 Dose: 320 mg - Objective Vital Signs: Vital Signs Temperature 98.3 F 08/31/16 09:25 Pulse Rate 88 08/31/16 10:00 Respiratory Rate 22 08/31/16 12:00 Blood Pressure 148/60 07/03/17 12:00 O2 Sat by Pulse Oximetry (%) 95 08/31/16 11:01 Constitutional: Yes: Well Nourished, No Distress, Calm Cardiovascular: Yes: Regular Rate and Rhythm, Murmur (LSB GRADE II) Respiratory: Yes: Regular Gastrointestinal: Yes: Normal Bowel Sounds Extremities: Yes: Calf Tenderness (RLE) Edema: No Peripheral Pulses WNL: Yes Integumentary: Yes: WNL Neurological: Yes: Alert, Oriented Psychiatric: Yes: Alert, Oriented Labs: CBC, BMP 08/31/16 05:05 08/31/16 11:14 INR, PTT INR 0.96 (0.82-1.09) 08/30/16 09:31 Problem List - Problems (1) CHF (congestive heart failure) Assessment/Plan: Last echo 05/17/2015 in the office showed Mild aortic valve leaflet calcification severe mitral regurgitation mild calcification of the mitral valve annulus mild mitral valve stenosis EF-62% -repeat echo Code(s): I50.9 - HEART FAILURE, UNSPECIFIED Qualifiers: Congestive heart failure type: unspecified congestive heart failure type Congestive heart failure chronicity: acute on chronic Qualified Code(s): I50.9 - Heart failure, unspecified (2) HTN (hypertension) Assessment/Plan: controlled at this time. seen by cardiology Code(s): I10 - ESSENTIAL (PRIMARY) HYPERTENSION (3) Pulmonary edema Assessment/Plan: Lasix 80 BID Code(s): J81.1 - CHRONIC PULMONARY EDEMA (4) Mitral valve regurgitation Assessment/Plan: -Severe on last echo -repeat echo Code(s): I34.0 - NONRHEUMATIC MITRAL (VALVE) INSUFFICIENCY Assessment/Plan -echo -diuresis -repeat cxr is better -Physical therapy -OK to transfer to floor to Telemetry
--- NOTE | 2016-08-31 15:12 | PN ---
Progress Note, Physician Chief Complaint: less sob tele NSVT History of Present Illness: 81 year old female with pmhx of htn, hld, dm, cad s/p stents in past, ?systolic chf, and copd presenting with sob. Getting IV lasix with relief. Feels better but not at baseline yet. Echo ordered. EPIC notes reviewed last echo 04/[address] Nye office normal EF severe MR. - Current Medication List Current Medications: Active Medications Acetaminophen (Tylenol -) 650 mg PO Q4H PRN PRN Reason: FEVER OR PAIN Albuterol/Ipratropium (Duoneb -) 1 amp NEB QIDR [facility] Last Admin: 08/31/16 11:10 Dose: 1 amp Aspirin (Asa -) 81 mg PO DAILY [facility] Last Admin: 08/31/16 09:06 Dose: 81 mg Chlorhexidine Gluconate (Hibiclens For Decolonization -) 1 applic TP HS [facility] Last Admin: 08/30/16 21:53 Dose: 1 applic Diltiazem HCl (Cardizem Cd -) 240 mg PO DAILY [facility] Last Admin: 08/31/16 09:06 Dose: 240 mg Furosemide (Lasix Injection -) 80 mg IVPB BID@0600,1400 [facility] Last Admin: 08/31/16 05:59 Dose: 80 mg Insulin Aspart (Novolog Vial Sliding Scale -) 0 vial SQ ACHS [facility] Last Admin: 08/31/16 12:18 Dose: 14 units Methylprednisolone Sodium Succinate (Solu-Medrol -) 40 mg IVPB Q6H-IV [facility] Last Admin: 08/31/16 14:15 Dose: 40 mg Mupirocin (Bactroban Ointment (For Decolonization) -) 1 applic NS BID [facility] Stop: 09/04/16 21:59 Last Admin: 08/31/16 09:07 Dose: 1 applic Nitroglycerin (Nitro-Bid 2% Paste -) 1 inch TD Q6HPO [facility] Last Admin: 08/31/16 11:40 Dose: 1 inch Pantoprazole Sodium (Protonix -) 40 mg PO DAILY [facility] Last Admin: 08/31/16 09:06 Dose: 40 mg Rosuvastatin Calcium (Crestor -) 20 mg PO HS [facility] Last Admin: 08/30/16 21:53 Dose: 20 mg Valsartan (Diovan -) 320 mg PO DAILY [facility] Last Admin: 08/31/16 09:06 Dose: 320 mg - Objective Vital Signs: Vital Signs Temperature 98.2 F 08/31/16 14:00 Pulse Rate 78 08/31/16 14:00 Respiratory Rate 22 08/31/16 14:00 Blood Pressure 136/65 08/31/16 14:00 O2 Sat by Pulse Oximetry (%) 95 08/31/16 11:01 Constitutional: Yes: No Distress, Calm Eyes: Yes: Conjunctiva Clear, EOM Intact HENT: Yes: Atraumatic, Normocephalic Neck: Yes: Supple, Trachea Midline Cardiovascular: Yes: Regular Rate and Rhythm, Murmur, S1, S2 (2/6 hsm apex rad to base) Respiratory: Yes: Rales (bilat bases) Gastrointestinal: Yes: Normal Bowel Sounds, Soft Musculoskeletal: Yes: WNL Extremities: Yes: WNL Edema: Yes Edema: LLE: 1+, RLE: 1+ Peripheral Pulses WNL: Yes Labs: CBC, BMP 08/31/16 05:05 08/31/16 11:14 INR, PTT INR 0.96 (0.82-1.09) 08/30/16 09:31 Assessment/Plan 1) Acute on chronic systolic CHF Responded well to IV lasix. repeat pro bnp in 2 days. monitor I/O's and lytes and bun/cr Daily weights Continue home valsartan Will try to clarify why not on Bblocker and on ccb when patient with cad and CHF Monitor on tele. Daily EKG 2) CAD -aspirin/statin -Echo results -NST 07/18/15 with moderate inferior and inferolateral scar add coreg 3.125mg bid. may need cath. discussed with patient and family. 3) MR she has significant MR on examination. May need cath to assess. Will review with patient and family when echo results are done. 4) NSVT if EF > 40% no need for treatment.
[2016-08-31] MEDS ORDERED: INSULIN REGULAR HUMAN 100 UNITS/ML *VIAL SQ ONE ×2 (18:35→22:53)
[2016-08-31] MEDS: ROSUVASTATIN CA 20 MG TABLET (FP) PO SCH (21:00)
[2016-08-31] MEDS: CHLORHEXIDINE GLUCONATE 4% CLEANSER FOR DECOLONIZATION TP SCH (21:02)
[2016-08-31] MEDS ORDERED: ALPRAZolam 0.25 MG TABLET PO ONE (22:49)
[2016-09-01] MEDS: methylPREDNISolone NA SUCC 40 MG/1 ML VIAL IVPB SCH ×3 (03:05→21:16)
[2016-09-01 06:24] LABS: BASOPHIL 0.1 % (0-2.0); MCH 29.8 pg (25.7-33.7); MCHC 33.5 g/dl (32.0-36.0); MEAN CELL VOLUME 88.9 fl (80-96); MEAN PLT VOLUME 10.7 fl (7.5-11.1); NEUTROPHILS 92.8 % (42.8-82.8); PLATELET COUNT 183 K/MM3 (134-434); RDW 14.5 % (11.6-15.6); WHITE BLOOD COUNT 13.5 K/mm3 (4.0-10.0)
[2016-09-01 06:47] LABS: ANION GAP 10 (8-16); CALCIUM 9.1 mg/dL (8.5-10.1); CO2 32 mmol/L (21-32); CREATININE 1.3 mg/dL (0.55-1.02); GLUCOSE,RANDOM 166 mg/dL (74-106); MAGNESIUM 2.6 mg/dL (1.8-2.4)
[2016-09-01] MEDS: ALBUTEROL SO4 2.5/IPRATROPIUM 0.5 INH SOL 3 ML VIAL.NEB. NEB SCH ×4 (06:55→23:03)
[2016-09-01] MEDS: INSULIN SLIDING SCALE (NOVOLOG) 1 VIAL SQ SCH ×4 (07:32→21:38)
[2016-09-01] MEDS: NITROGLYCERIN 2% OINTMENT - 1GM PACKET TD SCH ×4 (07:32→18:55)
--- NOTE | 2016-09-01 08:21 | PN ---
Progress Note, Physician History of Present Illness: feels better on nc no cp - Current Medication List Current Medications: Active Medications Acetaminophen (Tylenol -) 650 mg PO Q4H PRN PRN Reason: FEVER OR PAIN Albuterol/Ipratropium (Duoneb -) 1 amp NEB QIDR [facility] Last Admin: 09/01/16 06:55 Dose: 1 amp Aspirin (Asa -) 81 mg PO DAILY [facility] Last Admin: 08/31/16 09:06 Dose: 81 mg Chlorhexidine Gluconate (Hibiclens For Decolonization -) 1 applic TP HS [facility] Last Admin: 08/31/16 21:02 Dose: 1 applic Diltiazem HCl (Cardizem Cd -) 240 mg PO DAILY [facility] Last Admin: 08/31/16 09:06 Dose: 240 mg Furosemide (Lasix Injection -) 80 mg IVPB BID@0600,1400 [facility] Last Admin: 08/31/16 05:59 Dose: 80 mg Insulin Aspart (Novolog Vial Sliding Scale -) 0 vial SQ ACHS [facility] Last Admin: 09/01/16 07:32 Dose: Not Given Methylprednisolone Sodium Succinate (Solu-Medrol -) 40 mg IVPB BID [facility] Mupirocin (Bactroban Ointment (For Decolonization) -) 1 applic NS BID [facility] Stop: 09/04/16 21:59 Last Admin: 08/31/16 21:02 Dose: 1 applic Nicotine (Nicoderm Patch -) 14 mg TD DAILY [facility] Nitroglycerin (Nitro-Bid 2% Paste -) 1 inch TD Q6HPO [facility] Last Admin: 09/01/16 07:32 Dose: 1 inch Pantoprazole Sodium (Protonix -) 40 mg PO DAILY [facility] Last Admin: 08/31/16 09:06 Dose: 40 mg Rosuvastatin Calcium (Crestor -) 20 mg PO HS [facility] Last Admin: 08/31/16 21:00 Dose: 20 mg Valsartan (Diovan -) 320 mg PO DAILY [facility] Last Admin: 08/31/16 09:06 Dose: 320 mg - Objective Vital Signs: Vital Signs Temperature 98.0 F 08/31/16 18:00 Pulse Rate 84 09/01/16 06:00 Respiratory Rate 22 09/01/16 06:00 Blood Pressure 120/65 09/01/16 06:00 O2 Sat by Pulse Oximetry (%) 97 08/31/16 23:01 Cardiovascular: Yes: S1, S2 Respiratory: Yes: On Nasal O2, Rales (at both bases) Gastrointestinal: Yes: Normal Bowel Sounds, Soft. No: Tenderness Labs: CBC, BMP 09/01/16 05:15 09/01/16 05:15 INR, PTT INR 0.96 (0.82-1.09) 08/30/16 09:31 Problem List - Problems (1) CHF (congestive heart failure) Assessment/Plan: LASIX PER CARDIO OXYGEN FOLLOW LABS CARDIO ICU MONITORING Code(s): I50.9 - HEART FAILURE, UNSPECIFIED Qualifiers: Congestive heart failure type: unspecified congestive heart failure type Congestive heart failure chronicity: acute on chronic Qualified Code(s): I50.9 - Heart failure, unspecified (2) COPD (chronic obstructive pulmonary disease) Assessment/Plan: NEBS STEROIDS TAPER CT OF CHEST PULM Code(s): J44.9 - CHRONIC OBSTRUCTIVE PULMONARY DISEASE, UNSPECIFIED Qualifiers : COPD type: chronic bronchitis Chronic bronchitis type: unspecified Qualified Code(s): J42 - Unspecified chronic bronchitis (3) Diabetes Assessment/Plan: BGM INSULIN Code(s): E11.9 - TYPE 2 DIABETES MELLITUS WITHOUT COMPLICATIONS Qualifiers: Diabetes mellitus type: other specified (including YULISA) Diabetes mellitus complication status: with unspecified complications Diabetes mellitus fdc insulin use: with bed bug exterminator use Qualified Code(s): E13.8 - Other specified diabetes mellitus with unspecified complications (4) Respiratory failure Code(s): J96.90 - RESPIRATORY FAILURE, UNSP, UNSP W HYPOXIA OR HYPERCAPNIA Qualifiers: Chronicity: acute Respiratory failure complication: hypoxia and hypercapnia Qualified Code(s): J96.01 - Acute respiratory failure with hypoxia (5) CAD S/P percutaneous coronary angioplasty Assessment/Plan: FOLLOW CE--TRENDING DOWN CARDIO NOTED--CATH D/W PT Code(s): I25.10 - ATHSCL HEART DISEASE OF [place] CORONARY ARTERY W/O ANG PCTRS Z98.61 - CORONARY ANGIOPLASTY STATUS
--- NOTE | 2016-09-01 10:09 | PN ---
Progress Note (short form) - Note Progress Note: PULMONARY/CCM Pt seen and examined in the ICU. Breathing continues to improve. No chest pain or palpitations. No cough or wheezing. Last Vital Signs Temp Pulse Resp BP Pulse Ox 98.0 F 86 22 113/50 95 08/31/16 18:00 09/01/16 08:00 09/01/16 09:00 09/01/16 08:00 09/01/16 09:00 Intake & Output 08/29/16 08/30/16 08/31/16 09/01/16 23:59 23:59 23:59 23:59 Intake Total 2150 1720 500 Output Total 4750 1575 300 Balance -2600 145 200 Weight 160 lb 156 lb 11.2 oz 156 lb 8.451 oz Gen: NAD in chair Heart: RRR, +systolic murmur Lung: decreased breath sounds at the bases Abd: soft, nontender Ext: no edema CBC, BMP 09/01/16 05:15 09/01/16 05:15 Active Medications Acetaminophen (Tylenol -) 650 mg PO Q4H PRN PRN Reason: FEVER OR PAIN Albuterol/Ipratropium (Duoneb -) 1 amp NEB QIDR [facility] Last Admin: 09/01/16 06:55 Dose: 1 amp Aspirin (Asa -) 81 mg PO DAILY [facility] Last Admin: 08/31/16 09:06 Dose: 81 mg Chlorhexidine Gluconate (Hibiclens For Decolonization -) 1 applic TP HS [facility] Last Admin: 08/31/16 21:02 Dose: 1 applic Diltiazem HCl (Cardizem Cd -) 240 mg PO DAILY [facility] Last Admin: 08/31/16 09:06 Dose: 240 mg Furosemide (Lasix Injection -) 80 mg IVPB BID@0600,1400 [facility] Last Admin: 08/31/16 05:59 Dose: 80 mg Insulin Aspart (Novolog Vial Sliding Scale -) 0 vial SQ ACHS [facility] Last Admin: 09/01/16 07:32 Dose: Not Given Methylprednisolone Sodium Succinate (Solu-Medrol -) 40 mg IVPB BID [facility] Mupirocin (Bactroban Ointment (For Decolonization) -) 1 applic NS BID [facility] Stop: 09/04/16 21:59 Last Admin: 08/31/16 21:02 Dose: 1 applic Nicotine (Nicoderm Patch -) 14 mg TD DAILY [facility] Nitroglycerin (Nitro-Bid 2% Paste -) 1 inch TD Q6HPO [facility] Last Admin: 09/01/16 07:32 Dose: 1 inch Pantoprazole Sodium (Protonix -) 40 mg PO DAILY [facility] Last Admin: 08/31/16 09:06 Dose: 40 mg Rosuvastatin Calcium (Crestor -) 20 mg PO HS [facility] Last Admin: 08/31/16 21:00 Dose: 20 mg Valsartan (Diovan -) 320 mg PO DAILY [facility] Last Admin: 08/31/16 09:06 Dose: 320 mg A/P Acute on Chronic Hypoxic and Hypercapneic Respiratory Failure improving Acute on Chronic Systolic Heart Failure +Troponins likely demand ischemia r/o COPD Exacerbation Acute Kidney Injury CAD DM - hold lasix today - monitor urine output, creatinine - taper medrol - inhaled bronchodilators - O2 to keep SpO2 >90% - glucose control while on systemic steroids - OOB to chair - echocardiogram - DVT prophylaxis
[2016-09-01] MEDS: NICOTINE 14 MG/24 HOURS TOPICAL PATCH TD SCH (10:54)
[2016-09-01] MEDS: PANTOPRAZOLE 40 MG TABLET (FP) PO SCH (10:55)
[2016-09-01] MEDS: ASPIRIN 81 MG CHEWABLE TABLETS PO SCH (10:55)
[2016-09-01] MEDS: MUPIROCIN 2% TOPICAL OINTMENT FOR DECOLONIZATION NS SCH ×2 (11:00→21:37)
[2016-09-01] MEDS: VALSARTAN 160 MG TABLET (UD) PO SCH (12:00)
--- NOTE | 2016-09-01 12:49 | PN ---
Progress Note, Physician Chief Complaint: less sob sitting up. tele neg. History of Present Illness: 81 year old female with pmhx of htn, hld, dm, cad s/p stents in past, ?systolic chf, and copd presenting with sob. Getting IV lasix with relief. Feels better but not at baseline yet. No further NSVT on telemetry. Echo ordered. EPIC notes reviewed last echo 04/[address] Nye office normal EF severe MR. villasenor held 09/01/16 due to rising bun/creat. - Current Medication List Current Medications: Active Medications Acetaminophen (Tylenol -) 650 mg PO Q4H PRN PRN Reason: FEVER OR PAIN Albuterol/Ipratropium (Duoneb -) 1 amp NEB QIDR [facility] Last Admin: 09/01/16 11:08 Dose: 1 amp Aspirin (Asa -) 81 mg PO DAILY [facility] Last Admin: 09/01/16 10:55 Dose: 81 mg Chlorhexidine Gluconate (Hibiclens For Decolonization -) 1 applic TP HS [facility] Last Admin: 08/31/16 21:02 Dose: 1 applic Diltiazem HCl (Cardizem Cd -) 240 mg PO DAILY [facility] Last Admin: 09/01/16 10:55 Dose: 240 mg Furosemide (Lasix Injection -) 80 mg IVPB BID@0600,1400 [facility] Last Admin: 08/31/16 05:59 Dose: 80 mg Insulin Aspart (Novolog Vial Sliding Scale -) 0 vial SQ ACHS [facility] Last Admin: 09/01/16 07:32 Dose: Not Given Methylprednisolone Sodium Succinate (Solu-Medrol -) 40 mg IVPB BID [facility] Last Admin: 09/01/16 10:56 Dose: 40 mg Mupirocin (Bactroban Ointment (For Decolonization) -) 1 applic NS BID [facility] Stop: 09/04/16 21:59 Last Admin: 08/31/16 21:02 Dose: 1 applic Nicotine (Nicoderm Patch -) 14 mg TD DAILY [facility] Last Admin: 09/01/16 10:54 Dose: 14 mg Nitroglycerin (Nitro-Bid 2% Paste -) 1 inch TD Q6HPO [facility] Last Admin: 09/01/16 07:32 Dose: 1 inch Pantoprazole Sodium (Protonix -) 40 mg PO DAILY [facility] Last Admin: 09/01/16 10:55 Dose: 40 mg Rosuvastatin Calcium (Crestor -) 20 mg PO HS [facility] Last Admin: 08/31/16 21:00 Dose: 20 mg Valsartan (Diovan -) 320 mg PO DAILY [facility] Last Admin: 08/31/16 09:06 Dose: 320 mg - Objective Vital Signs: Vital Signs Temperature 98.6 F 09/01/16 10:00 Pulse Rate 88 09/01/16 10:00 Respiratory Rate 22 09/01/16 10:00 Blood Pressure 116/56 09/01/16 10:00 O2 Sat by Pulse Oximetry (%) 95 09/01/16 09:00 Constitutional: Yes: Well Nourished, No Distress Eyes: Yes: Conjunctiva Clear, EOM Intact HENT: Yes: Atraumatic, Normocephalic Neck: Yes: Supple, Trachea Midline Cardiovascular: Yes: JVD, Murmur (3/6 hsm apex rad to base and axilla.) Respiratory: Yes: Rales (bibasilar) Gastrointestinal: Yes: Normal Bowel Sounds, Soft Extremities: Yes: WNL Edema: Yes Edema: LLE: Trace, RLE: Trace Peripheral Pulses WNL: Yes Labs: CBC, BMP 09/01/16 05:15 09/01/16 05:15 INR, PTT INR 0.96 (0.82-1.09) 08/30/16 09:31 Problem List - Problems (1) CHF (congestive heart failure) Assessment/Plan: 1) Acute on chronic systolic CHF improving. Responding well to IV lasix. repeat pro bnp. monitor I/O's and lytes and bun/cr Daily weights Continue home valsartan Monitor on tele. Code(s): I50.9 - HEART FAILURE, UNSPECIFIED Qualifiers: Congestive heart failure type: unspecified congestive heart failure type Congestive heart failure chronicity: acute on chronic Qualified Code(s ): I50.9 - Heart failure, unspecified (2) Mitral valve regurgitation Assessment/Plan: she has significant MR on examination. May need cath to assess. Will review with patient and family when echo results are done. Code(s): I34.0 - NONRHEUMATIC MITRAL (VALVE) INSUFFICIENCY (3) CAD S/P percutaneous coronary angioplasty Assessment/Plan: -aspirin/statin -Echo pending -NST 07/18/15 with moderate inferior and inferolateral scar add coreg 3.125mg bid. may need cath. discussed with patient and family. elevated omid likely due to demand ischemia. Code(s): I25.10 - ATHSCL HEART DISEASE OF [place] CORONARY ARTERY W/O ANG PCTRS Z98.61 - CORONARY ANGIOPLASTY STATUS (4) NSVT (nonsustained ventricular tachycardia) Assessment/Plan: check EF on echo. Benign if > 40%. Code(s): I47.2 - VENTRICULAR TACHYCARDIA
[2016-09-01] MEDS: CHLORHEXIDINE GLUCONATE 4% CLEANSER FOR DECOLONIZATION TP SCH (21:16)
[2016-09-01] MEDS: ROSUVASTATIN CA 20 MG TABLET (FP) PO SCH (21:58)
[2016-09-02] MEDS: NITROGLYCERIN 2% OINTMENT - 1GM PACKET TD SCH ×4 (00:30→17:26)
[2016-09-02] MEDS ORDERED: ALPRAZolam 0.25 MG TABLET PO ONE (00:47)
[2016-09-02] MEDS: FUROSEMIDE 40 MG/4 ML INJECTABLE VIAL IVPB SCH ×2 (06:13→14:00)
[2016-09-02] MEDS: ALBUTEROL SO4 2.5/IPRATROPIUM 0.5 INH SOL 3 ML VIAL.NEB. NEB SCH ×3 (06:13→18:46)
[2016-09-02] MEDS: INSULIN SLIDING SCALE (NOVOLOG) 1 VIAL SQ SCH ×4 (06:14→21:01)
[2016-09-02 06:19] LABS: BASOPHIL 0.1 % (0-2.0); MCH 30.2 pg (25.7-33.7); MCHC 33.5 g/dl (32.0-36.0); MEAN CELL VOLUME 90.1 fl (80-96); MEAN PLT VOLUME 10.9 fl (7.5-11.1); NEUTROPHILS 94.1 % (42.8-82.8); PLATELET COUNT 169 K/MM3 (134-434); RDW 14.5 % (11.6-15.6); WHITE BLOOD COUNT 9.3 K/mm3 (4.0-10.0)
[2016-09-02 06:45] LABS: ALBUMIN 3.1 g/dl (3.4-5.0); ANION GAP 9 (8-16); BILIRUBIN,TOTAL 0.2 mg/dL (0.2-1.0); CALCIUM 8.1 mg/dL (8.5-10.1); CO2 31 mmol/L (21-32); CREATININE 1.4 mg/dL (0.55-1.02); MAGNESIUM 2.6 mg/dL (1.8-2.4); PHOSPHOROUS 4.4 mg/dL (2.5-4.9); SGOT/AST 14 U/L (15-37); SGPT/ALT 21 U/L (12-78); TOT PROT 5.8 g/dl (6.4-8.2)
[2016-09-02 06:48] LABS: ALK PHOS 64 U/L (45-117); TROPONIN I 0.07 ng/ml (0.00-0.05)
[2016-09-02 07:18] LABS: GLUCOSE,RANDOM 366 mg/dL (74-106)
--- NOTE | 2016-09-02 08:58 | PN ---
Physical Exam: SUBJECTIVE: 81 yo F w/ pmh CHF, COPD, HTN, HLD, DM, with acute on chronic hypoxemic/ hypercapnic respiratory failure in the setting of pulmonary edema OBJECTIVE: Vital Signs Period Temp Pulse Resp BP Sys/Lam Pulse Ox Last 24 Hr 97.6 F-98.6 F 56-88 18-27 116-151/42-75 95-96 GENERAL: The patient is awake, alert, and fully oriented, in no acute distress. HEAD: Normal with no signs of trauma. EYES: PERRL, extraocular movements intact, sclera anicteric, conjunctiva clear. No ptosis. ENT: Ears normal, nares patent, oropharynx clear without exudates, moist mucous membranes. NECK: Trachea midline, full range of motion, supple. LUNGS: Breath sounds equal, clear to auscultation bilaterally, no wheezes, no crackles, no accessory muscle use. HEART: Regular rate and rhythm, S1, S2 without murmur, rub or gallop. ABDOMEN: Soft, nontender, nondistended, normoactive bowel sounds, no guarding, no rebound, no hepatosplenomegaly, no masses. EXTREMITIES: 2+ pulses, warm, well-perfused, no edema. NEUROLOGICAL: Cranial nerves II through XII grossly intact. Normal speech, gait not observed. PSYCH: Normal mood, normal affect. SKIN: Warm, dry, normal turgor, no rashes or lesions noted CBC,CMP WBC 9.3 K/mm3 (4.0-10.0) D 09/02/16 05:15 RBC 3.63 M/mm3 (3.60-5.2) 09/02/16 05:15 Hgb 11.0 GM/dL (10.7-15.3) 09/02/16 05:15 Hct 32.7 % (32.4-45.2) 09/02/16 05:15 MCV 90.1 fl (80-96) 09/02/16 05:15 MCHC 33.5 g/dl (32.0-36.0) 09/02/16 05:15 RDW 14.5 % (11.6-15.6) 09/02/16 05:15 Plt Count 169 K/MM3 (134-434) 09/02/16 05:15 MPV 10.9 fl (7.5-11.1) 09/02/16 05:15 Neutrophils % 94.1 % (42.8-82.8) H 09/02/16 05:15 Lymphocytes % 3.5 % (8-40) L 09/02/16 05:15 Monocytes % 2.3 % (3.8-10.2) L 09/02/16 05:15 Eosinophils % 0.0 % (0-4.5) 09/02/16 05:15 Basophils % 0.1 % (0-2.0) 09/02/16 05:15 Sodium 137 mmol/L (136-145) 09/02/16 05:15 Potassium 4.5 mmol/L (3.5-5.1) 09/02/16 05:15 Chloride 97 mmol/L (98-107) L 09/02/16 05:15 Carbon Dioxide 31 mmol/L (21-32) 09/02/16 05:15 Anion Gap 9 (8-16) 09/02/16 05:15 BUN 54 mg/dL (7-18) H 09/02/16 05:15 Creatinine 1.4 mg/dL (0.55-1.02) H 09/02/16 05:15 Creat Clearance w eGFR 35.91 (>60) 09/02/16 05:15 POC Glucometer 179.46585 UNITS (()) 09/01/16 06:00 Random Glucose 366 mg/dL (74-106) H* D 09/02/16 05:15 Hemoglobin A1c % 6.9 % (4.8-6.0) H D 08/31/16 05:05 Calcium 8.1 mg/dL (8.5-10.1) L 09/02/16 05:15 Phosphorus 4.4 mg/dL (2.5-4.9) 09/02/16 05:15 Magnesium 2.6 mg/dL (1.8-2.4) H 09/02/16 05:15 Total Bilirubin 0.2 mg/dL (0.2-1.0) D 09/02/16 05:15 AST 14 U/L (15-37) L D 09/02/16 05:15 ALT 21 U/L (12-78) 09/02/16 05:15 Alkaline Phosphatase 64 U/L (45-117) 09/02/16 05:15 Creatine Kinase 56 IU/L (26-192) 09/02/16 05:15 Troponin I 0.07 ng/ml (0.00-0.05) H 09/02/16 05:15 B-Natriuretic Peptide 2071.89 pg/ml (5-450) H 09/02/16 05:15 Total Protein 5.8 g/dl (6.4-8.2) L D 09/02/16 05:15 Albumin 3.1 g/dl (3.4-5.0) L D 09/02/16 05:15 Troponin, BNP 09/02/16 05:15 Troponin I 0.07 H B-Natriuretic Peptide 2071.89 H Active Medications Generic Name Dose Route Start Last Admin Trade Name Freq PRN Reason Stop Dose Admin Acetaminophen 650 mg 08/30/16 11:09 Tylenol - PO Q4H PRN FEVER OR PAIN Albuterol/Ipratropium 1 amp 08/30/16 12:00 09/02/16 06:13 Duoneb - NEB 1 amp QIDR [facility] Administration Aspirin 81 mg 08/31/16 10:00 09/01/16 10:55 Asa - PO 81 mg DAILY [facility] Administration Chlorhexidine Gluconate 1 applic 08/30/16 22:00 09/01/16 21:16 Hibiclens For Decolonization - TP 1 applic HS [facility] Administration Diltiazem HCl 240 mg 08/31/16 10:00 09/01/16 10:55 Cardizem Cd - PO 240 mg DAILY [facility] Administration Furosemide 80 mg 08/30/16 14:00 09/02/16 06:13 Lasix Injection - IVPB 80 mg BID@0600,1400 [facility] Administration Insulin Aspart 0 vial 08/30/16 22:00 09/02/16 06:14 Novolog Vial Sliding Scale - SQ 11 units ACHS [facility] Administration Methylprednisolone Sodium Succinate 40 mg 09/01/16 10:00 09/01/16 21:16 Solu-Medrol - IVPB 40 mg BID [facility] Administration Mupirocin 1 applic 08/30/16 22:00 09/01/16 21:37 Bactroban Ointment (For Decolonization) - NS 09/04/16 21:59 1 applic BID [facility] Administration Nicotine 14 mg 09/01/16 10:00 09/01/16 10:54 Nicoderm Patch - TD 14 mg DAILY [facility] Administration Nitroglycerin 1 inch 08/30/16 12:00 09/02/16 06:11 Nitro-Bid 2% Paste - TD 1 inch Q6HPO [facility] Administration Pantoprazole Sodium 40 mg 08/30/16 11:15 09/01/16 10:55 Protonix - PO 40 mg DAILY [facility] Administration Rosuvastatin Calcium 20 mg 08/30/16 22:00 09/01/16 21:58 Crestor - PO 20 mg HS [facility] Administration Valsartan 320 mg 08/31/16 10:00 09/01/16 12:00 Diovan - PO 320 mg DAILY [facility] Administration ASSESSMENT/PLAN: 81 year old female with improving acute on chronic hypoxemic/hypercapnic respiratory failure in the setting of pulmonary edema Pulmonary: -inhaled bronchodilators PRN -monitor O2 sats to O2 > 90 -continue steroid taper -respiratory request to humidify O2 Cardiac: -cardiac enzymes trending down (0.07) -f/u echo Endocrine: Elevated blood glucose 2/2 systemic steroid use -consider adding long acting insulin -cont. insulin sliding scale Renal: Worsening BUN/cre (54/1.4), pt received lasix dose this morning -Consistently elevated BG (366 today) -Monitor BUN/Cre -hold Lasix, decrease dose to 40mg BID tomorrow -monitor urine output Prophylaxis: -cont SCDs Dispo: -transfer to tele Problem List - Problems (1) CHF (congestive heart failure) Code(s): I50.9 - HEART FAILURE, UNSPECIFIED Qualifiers: Congestive heart failure type: unspecified congestive heart failure type Congestive heart failure chronicity: acute on chronic Qualified Code(s ): I50.9 - Heart failure, unspecified (2) COPD (chronic obstructive pulmonary disease) Code(s): J44.9 - CHRONIC OBSTRUCTIVE PULMONARY DISEASE, UNSPECIFIED Qualifiers : COPD type: chronic bronchitis Chronic bronchitis type: unspecified Qualified Code(s): J42 - Unspecified chronic bronchitis (3) Respiratory failure Code(s): J96.90 - RESPIRATORY FAILURE, UNSP, UNSP W HYPOXIA OR HYPERCAPNIA Qualifiers: Chronicity: acute Respiratory failure complication: hypoxia and hypercapnia Qualified Code(s): J96.01 - Acute respiratory failure with hypoxia Visit type - Emergency Visit Emergency Visit: No - New Patient This patient is new to me today: No - Critical Care Critical Care patient: Yes Total Critical Care Time (in minutes): 120 Critical Care Statement: The care of this patient involved high complexity decision making to prevent further life threatening deterioration of the patient 's condition and/or to evalute & treat vital organ system(s) failure or risk of failure.
[2016-09-02] MEDS ORDERED: methylPREDNISolone NA SUCC 40 MG/1 ML VIAL IVPB SCH (09:01)
[2016-09-02] MEDS ORDERED: sitaGLIPtin PHOSPHATE 50 MG TABLET PO ONE (09:02)
--- NOTE | 2016-09-02 09:06 | PN ---
Progress Note, Physician History of Present Illness: feels better-sitting in chair on nc no cp - Current Medication List Current Medications: Active Medications Acetaminophen (Tylenol -) 650 mg PO Q4H PRN PRN Reason: FEVER OR PAIN Albuterol/Ipratropium (Duoneb -) 1 amp NEB QIDR [facility] Last Admin: 09/02/16 06:13 Dose: 1 amp Aspirin (Asa -) 81 mg PO DAILY [facility] Last Admin: 09/01/16 10:55 Dose: 81 mg Chlorhexidine Gluconate (Hibiclens For Decolonization -) 1 applic TP HS [facility] Last Admin: 09/01/16 21:16 Dose: 1 applic Diltiazem HCl (Cardizem Cd -) 240 mg PO DAILY [facility] Last Admin: 09/01/16 10:55 Dose: 240 mg Furosemide (Lasix Injection -) 80 mg IVPB BID@0600,1400 [facility] Last Admin: 09/02/16 06:13 Dose: 80 mg Insulin Aspart (Novolog Vial Sliding Scale -) 0 vial SQ ACHS [facility] Last Admin: 09/02/16 06:14 Dose: 11 units Methylprednisolone Sodium Succinate (Solu-Medrol -) 20 mg IVPB BID [facility] Mupirocin (Bactroban Ointment (For Decolonization) -) 1 applic NS BID [facility] Stop: 09/04/16 21:59 Last Admin: 09/01/16 21:37 Dose: 1 applic Nicotine (Nicoderm Patch -) 14 mg TD DAILY [facility] Last Admin: 09/01/16 10:54 Dose: 14 mg Nitroglycerin (Nitro-Bid 2% Paste -) 1 inch TD Q6HPO [facility] Last Admin: 09/02/16 06:11 Dose: 1 inch Pantoprazole Sodium (Protonix -) 40 mg PO DAILY [facility] Last Admin: 09/01/16 10:55 Dose: 40 mg Rosuvastatin Calcium (Crestor -) 20 mg PO HS [facility] Last Admin: 09/01/16 21:58 Dose: 20 mg Sitagliptin Phosphate (Januvia -) 50 mg PO DAILY@0700 [facility] Sitagliptin Phosphate (Januvia -) 50 mg PO ONCE ONE Stop: 09/02/16 09:03 Valsartan (Diovan -) 320 mg PO DAILY [facility] Last Admin: 09/01/16 12:00 Dose: 320 mg - Objective Vital Signs: Vital Signs Temperature 97.6 F 09/02/16 06:00 Pulse Rate 74 09/02/16 06:00 Respiratory Rate 18 09/02/16 06:00 Blood Pressure 151/59 09/02/16 06:00 O2 Sat by Pulse Oximetry (%) 95 09/01/16 20:25 Cardiovascular: Yes: Regular Rate and Rhythm Respiratory: Yes: On Nasal O2, Rales (at the bases) Gastrointestinal: Yes: Normal Bowel Sounds, Soft Edema: No Labs: CBC, BMP 09/02/16 05:15 09/02/16 05:15 INR, PTT INR 0.96 (0.82-1.09) 08/30/16 09:31 Problem List - Problems (1) CHF (congestive heart failure) Assessment/Plan: LASIX PER CARDIO OXYGEN FOLLOW LABS CARDIO ICU MONITORING Code(s): I50.9 - HEART FAILURE, UNSPECIFIED Qualifiers: Congestive heart failure type: unspecified congestive heart failure type Congestive heart failure chronicity: acute on chronic Qualified Code(s ): I50.9 - Heart failure, unspecified (2) COPD (chronic obstructive pulmonary disease) Assessment/Plan: NEBS STEROIDS TAPER CT OF CHEST PULM Code(s): J44.9 - CHRONIC OBSTRUCTIVE PULMONARY DISEASE, UNSPECIFIED Qualifiers : COPD type: chronic bronchitis Chronic bronchitis type: unspecified Qualified Code(s): J42 - Unspecified chronic bronchitis (3) Diabetes Assessment/Plan: BGM INSULIN ADD JANUVIA Code(s): E11.9 - TYPE 2 DIABETES MELLITUS WITHOUT COMPLICATIONS Qualifiers: Diabetes mellitus type: other specified (including YULISA) Diabetes mellitus complication status: with unspecified complications Diabetes mellitus termite treater insulin use: with termite treater use Qualified Code(s): E13.8 - Other specified diabetes mellitus with unspecified complications (4) Respiratory failure Assessment/Plan: BIPAP PRN ABOVE PT NOT A DNI Code(s): J96.90 - RESPIRATORY FAILURE, UNSP, UNSP W HYPOXIA OR HYPERCAPNIA Qualifiers: Chronicity: acute Respiratory failure complication: hypoxia and hypercapnia Qualified Code(s): J96.01 - Acute respiratory failure with hypoxia (5) CAD S/P percutaneous coronary angioplasty Assessment/Plan: FOLLOW CE--TRENDING DOWN CARDIO NOTED--CATH D/W PT AWAIT ECHO Code(s): I25.10 - ATHSCL HEART DISEASE OF [place] CORONARY ARTERY W/O [place] PCTRS Z98.61 - CORONARY ANGIOPLASTY STATUS
[2016-09-02] MEDS: VALSARTAN 160 MG TABLET (UD) PO SCH (10:16)
[2016-09-02] MEDS: PANTOPRAZOLE 40 MG TABLET (FP) PO SCH (10:16)
[2016-09-02] MEDS: ASPIRIN 81 MG CHEWABLE TABLETS PO SCH (10:16)
--- NOTE | 2016-09-02 10:51 | PN ---
Teaching Attending Note Name of Resident: Gallo Talley ATTENDING PHYSICIAN STATEMENT I saw and evaluated the patient. I reviewed the resident's note and discussed the case with the resident. I agree with the resident's findings and plan as documented. SUBJECTIVE: Pt seen and examined in the ICU. Ambulating in room. Saturating mid 80s off O2. Denies chest pain or shortness of breath. +nonproductive cough. OBJECTIVE: Last Vital Signs Temp Pulse Resp BP Pulse Ox 98.5 F 74 18 117/71 95 09/02/16 08:00 09/02/16 10:00 09/02/16 10:00 09/02/16 10:00 09/01/16 20:25 Intake & Output 08/30/16 08/31/16 09/01/16 09/02/16 23:59 23:59 23:59 23:59 Intake Total 2150 1720 1660 Output Total 4750 1575 1400 3 Balance -2600 145 260 -3 Weight 160 lb 156 lb 11.2 oz 156 lb 8.451 oz 158 lb 8 oz Gen: less tachypneic Heart: RRR, +systolic murmur Lung: decreased breath sounds at the bases Abd: soft, nontender Ext: no edema CBC, BMP 09/02/16 05:15 09/02/16 05:15 Active Medications Acetaminophen (Tylenol -) 650 mg PO Q4H PRN PRN Reason: FEVER OR PAIN Albuterol/Ipratropium (Duoneb -) 1 amp NEB QIDR [facility] Last Admin: 09/02/16 06:13 Dose: 1 amp Aspirin (Asa -) 81 mg PO DAILY [facility] Last Admin: 09/02/16 10:16 Dose: 81 mg Chlorhexidine Gluconate (Hibiclens For Decolonization -) 1 applic TP HS [facility] Last Admin: 09/01/16 21:16 Dose: 1 applic Diltiazem HCl (Cardizem Cd -) 240 mg PO DAILY [facility] Last Admin: 09/02/16 10:15 Dose: 240 mg Furosemide (Lasix Injection -) 40 mg IVPB BID@0600,1400 [facility] Insulin Aspart (Novolog Vial Sliding Scale -) 0 vial SQ ACHS [facility] Last Admin: 09/02/16 06:14 Dose: 11 units Methylprednisolone Sodium Succinate (Solu-Medrol -) 20 mg IVPB BID [facility] Last Admin: 09/02/16 10:16 Dose: 20 mg Mupirocin (Bactroban Ointment (For Decolonization) -) 1 applic NS BID [facility] Stop: 09/04/16 21:59 Last Admin: 09/01/16 21:37 Dose: 1 applic Nicotine (Nicoderm Patch -) 14 mg TD DAILY [facility] Last Admin: 09/01/16 10:54 Dose: 14 mg Nitroglycerin (Nitro-Bid 2% Paste -) 1 inch TD Q6HPO [facility] Last Admin: 09/02/16 06:11 Dose: 1 inch Pantoprazole Sodium (Protonix -) 40 mg PO DAILY [facility] Last Admin: 09/02/16 10:16 Dose: 40 mg Rosuvastatin Calcium (Crestor -) 20 mg PO HS [facility] Last Admin: 09/01/16 21:58 Dose: 20 mg Sitagliptin Phosphate (Januvia -) 50 mg PO DAILY@0700 [facility] Valsartan (Diovan -) 320 mg PO DAILY [facility] Last Admin: 09/02/16 10:16 Dose: 320 mg ASSESSMENT AND PLAN: Acute on Chronic Hypoxic and Hypercapneic Respiratory Failure improving Acute on Chronic Systolic Heart Failure +Troponins likely demand ischemia r/o COPD Exacerbation Acute Kidney Injury CAD DM - can decrease lasix dose - monitor urine output, creatinine - taper off medrol - inhaled bronchodilators - O2 to keep SpO2 >90% - glucose control while on systemic steroids - OOB to chair - echocardiogram - DVT prophylaxis - can monitor on telemetry
[2016-09-02] MEDS: MUPIROCIN 2% TOPICAL OINTMENT FOR DECOLONIZATION NS SCH (13:34)
[2016-09-02] MEDS ORDERED: ACETAMINOPHEN 325 MG TABLET (FP) PO PRN (13:45)
[2016-09-02] MEDS ORDERED: FUROSEMIDE 40 MG/4 ML INJECTABLE VIAL IVPB SCH (14:00)
[2016-09-02] MEDS: NICOTINE 14 MG/24 HOURS TOPICAL PATCH TD SCH (14:30)
--- NOTE | 2016-09-02 15:14 | PN ---
Progress Note, Physician Chief Complaint: less sob sitting up. tele neg. History of Present Illness: 81 year old female with pmhx of htn, hld, dm, cad s/p stents in past, ?systolic chf, and copd presenting with sob. Getting IV lasix with relief. Feels better but not at baseline yet. No further NSVT on telemetry. EPIC notes reviewed last echo 04/[address] Nye office normal EF severe MR. lasix held 09/01/16 due to rising bun/creat. Echo 09/02/16 tds normal ef severe MR, [id number] - Current Medication List Current Medications: Active Medications Acetaminophen (Tylenol -) 650 mg PO Q4H PRN PRN Reason: FEVER OR PAIN Albuterol/Ipratropium (Duoneb -) 1 amp NEB QIDR [facility] Aspirin (Asa -) 81 mg PO DAILY [facility] Diltiazem HCl (Cardizem Cd -) 240 mg PO DAILY [facility] Furosemide (Lasix Injection -) 40 mg IVPB BID@0600,1400 [facility] Insulin Aspart (Novolog Vial Sliding Scale -) 1 vial SQ ACHS [facility] PRN Reason: Protocol Methylprednisolone Sodium Succinate (Solu-Medrol -) 20 mg IVPB BID [facility] Nicotine (Nicoderm Patch -) 14 mg TD DAILY [facility] Nitroglycerin (Nitro-Bid 2% Paste -) 1 inch TD Q6HPO [facility] Pantoprazole Sodium (Protonix -) 40 mg PO DAILY [facility] Rosuvastatin Calcium (Crestor -) 20 mg PO HS [facility] Sitagliptin Phosphate (Januvia -) 50 mg PO DAILY@0700 [facility] Valsartan (Diovan -) 320 mg PO DAILY [facility] - Objective Vital Signs: Vital Signs Temperature 98.6 F 09/02/16 12:00 Pulse Rate 76 09/02/16 12:00 Respiratory Rate 18 09/02/16 12:00 Blood Pressure 125/52 09/02/16 12:00 O2 Sat by Pulse Oximetry (%) 98 09/02/16 11:24 Constitutional: Yes: Well Nourished, No Distress Eyes: Yes: Conjunctiva Clear, EOM Intact HENT: Yes: Atraumatic, Normocephalic Neck: Yes: Supple, Trachea Midline Cardiovascular: Yes: Regular Rate and Rhythm, Murmur (2/6 hsm apex to base.) Respiratory: Yes: Regular, CTA Bilaterally Gastrointestinal: Yes: Normal Bowel Sounds, Soft Musculoskeletal: Yes: WNL Extremities: Yes: WNL Edema: No Peripheral Pulses WNL: Yes Labs: CBC, BMP 09/02/16 05:15 09/02/16 12:25 INR, PTT INR 0.96 (0.82-1.09) 08/30/16 09:31 Problem List - Problems (1) CHF (congestive heart failure) Assessment/Plan: 1) Acute on chronic systolic CHF improving. Responding well to IV lasix. repeat pro bnp. monitor I/O's and lytes and bun/cr Daily weights Continue home valsartan Monitor on tele. Code(s): I50.9 - HEART FAILURE, UNSPECIFIED Qualifiers: Congestive heart failure type: unspecified congestive heart failure type Congestive heart failure chronicity: acute on chronic Qualified Code(s ): I50.9 - Heart failure, unspecified (2) Mitral valve regurgitation Assessment/Plan: she has severe MR on examination and echo. She needs cath to assess. plan is transfer 09/04/16 for cath. Code(s): I34.0 - NONRHEUMATIC MITRAL (VALVE) INSUFFICIENCY (3) CAD S/P percutaneous coronary angioplasty Assessment/Plan: Small omid leak post event, may be demand ischemia vs cad. echo normal ef plan is for cath wednesday09/04/16 Code(s): I25.10 - ATHSCL HEART DISEASE OF [place] CORONARY ARTERY W/O ANG PCTRS Z98.61 - CORONARY ANGIOPLASTY STATUS (4) NSVT (nonsustained ventricular tachycardia) Assessment/Plan: no treatment in the setting of nstemi and normal EF. Code(s): I47.2 - VENTRICULAR TACHYCARDIA
[2016-09-02] MEDS ORDERED: INSULIN (NOVOLOG) ASPART 100 UNITS/ML 10ML VIAL ONE (20:44)
[2016-09-02] MEDS: methylPREDNISolone NA SUCC 40 MG/1 ML VIAL IVPB SCH (21:01)
[2016-09-02] MEDS: ROSUVASTATIN CA 20 MG TABLET (FP) PO SCH (21:01)
[2016-09-02] MEDS ORDERED: CHLORHEXIDINE GLUCONATE 4% CLEANSER FOR DECOLONIZATION TP SCH (22:00)
[2016-09-02] MEDS ORDERED: MUPIROCIN 2% TOPICAL OINTMENT FOR DECOLONIZATION NS SCH (22:00)
[2016-09-03] MEDS: ALBUTEROL SO4 2.5/IPRATROPIUM 0.5 INH SOL 3 ML VIAL.NEB. NEB SCH ×5 (00:04→23:58)
[2016-09-03] MEDS: NITROGLYCERIN 2% OINTMENT - 1GM PACKET TD SCH ×4 (00:30→17:18)
[2016-09-03] MEDS: INSULIN SLIDING SCALE (NOVOLOG) 1 VIAL SQ SCH ×4 (06:26→22:24)
[2016-09-03] MEDS: sitaGLIPtin PHOSPHATE 50 MG TABLET PO SCH (06:26)
[2016-09-03] MEDS: FUROSEMIDE 40 MG/4 ML INJECTABLE VIAL IVPB SCH (06:26)
[2016-09-03] MEDS ORDERED: sitaGLIPtin PHOSPHATE 50 MG TABLET PO SCH (07:00)
[2016-09-03] MEDS: ASPIRIN 81 MG CHEWABLE TABLETS PO SCH (09:58)
[2016-09-03] MEDS: PANTOPRAZOLE 40 MG TABLET (FP) PO SCH (09:59)
[2016-09-03] MEDS: VALSARTAN 160 MG TABLET (UD) PO SCH (09:59)
[2016-09-03] MEDS: methylPREDNISolone NA SUCC 40 MG/1 ML VIAL IVPB SCH (09:59)
[2016-09-03] MEDS ORDERED: INSULIN (NOVOLOG) ASPART 100 UNITS/ML 10ML VIAL ONE ×2 (11:02→17:14)
--- NOTE | 2016-09-03 11:06 | PN ---
Progress Note, Physician Chief Complaint: very nervous and anxious about her cath tmw explained to patient about importance and benefit og getting it done spoke to dr aguirre as well and told the patient what he said - Current Medication List Current Medications: Active Medications Acetaminophen (Tylenol -) 650 mg PO Q4H PRN PRN Reason: FEVER OR PAIN Albuterol/Ipratropium (Duoneb -) 1 amp NEB QIDR [facility] Last Admin: 09/03/16 06:47 Dose: 1 amp Aspirin (Asa -) 81 mg PO DAILY [facility] Last Admin: 09/03/16 09:58 Dose: 81 mg Diltiazem HCl (Cardizem Cd -) 240 mg PO DAILY [facility] Last Admin: 09/03/16 09:58 Dose: 240 mg Furosemide (Lasix Injection -) 40 mg IVPUSH DAILY [facility] Insulin Aspart (Novolog Vial Sliding Scale -) 1 vial SQ ACHS [facility] PRN Reason: Protocol Last Admin: 09/03/16 10:57 Dose: 11 units Nicotine (Nicoderm Patch -) 14 mg TD DAILY [facility] Nitroglycerin (Nitro-Bid 2% Paste -) 1 inch TD Q6HPO [facility] Last Admin: 09/03/16 06:26 Dose: 1 inch Pantoprazole Sodium (Protonix -) 40 mg PO DAILY [facility] Last Admin: 09/03/16 09:59 Dose: 40 mg Rosuvastatin Calcium (Crestor -) 20 mg PO HS [facility] Last Admin: 09/02/16 21:01 Dose: 20 mg Sitagliptin Phosphate (Januvia -) 50 mg PO DAILY@0700 [facility] Last Admin: 09/03/16 06:26 Dose: 50 mg Valsartan (Diovan -) 320 mg PO DAILY [facility] Last Admin: 09/03/16 09:59 Dose: 320 mg - Objective Vital Signs: Vital Signs Temperature 98.1 F 09/03/16 10:00 Pulse Rate 76 09/03/16 10:00 Respiratory Rate 18 09/03/16 10:00 Blood Pressure 164/76 09/03/16 10:00 O2 Sat by Pulse Oximetry (%) 91 L 09/03/16 09:41 Constitutional: Yes: Calm Cardiovascular: Yes: Murmur, S1, S2 Respiratory: Yes: CTA Bilaterally Gastrointestinal: Yes: Normal Bowel Sounds, Soft Edema: No Neurological: Yes: Alert, Oriented Labs: CBC, BMP 09/02/16 05:15 07/05/17 12:25 INR, PTT INR 0.96 (0.82-1.09) 08/30/16 09:31 Problem List - Problems (1) CHF (congestive heart failure) Assessment/Plan: acute on chronic systolic HF imprving tele improving on lasix continue valsartan decrease lasix to once daily check bmp Code(s): I50.9 - HEART FAILURE, UNSPECIFIED Qualifiers: Congestive heart failure type: unspecified congestive heart failure type Congestive heart failure chronicity: acute on chronic Qualified Code(s ): I50.9 - Heart failure, unspecified (2) COPD (chronic obstructive pulmonary disease) Assessment/Plan: medrol taper to stop Code(s): J44.9 - CHRONIC OBSTRUCTIVE PULMONARY DISEASE, UNSPECIFIED Qualifiers : COPD type: chronic bronchitis Chronic bronchitis type: unspecified Qualified Code(s): J42 - Unspecified chronic bronchitis (3) Mitral valve regurgitation Assessment/Plan: to get cardiac cath tmw to asses the valve Code(s): I34.0 - NONRHEUMATIC MITRAL (VALVE) INSUFFICIENCY (4) CAD S/P percutaneous coronary angioplasty Assessment/Plan: to get cardiac cath tmw Code(s): I25.10 - ATHSCL HEART DISEASE OF [place] CORONARY ARTERY W/O ANG PCTRS Z98.61 - CORONARY ANGIOPLASTY STATUS (5) Smoking Assessment/Plan: ex smoker nicotine patch Code(s): F17.200 - NICOTINE DEPENDENCE, UNSPECIFIED, UNCOMPLICATED
[2016-09-03] MEDS: NICOTINE 14 MG/24 HOURS TOPICAL PATCH TD SCH (11:36)
--- NOTE | 2016-09-03 12:22 | PN ---
Progress Note (short form) - Note Progress Note: PULMONARY Breathing continues to improve. No chest pain or palpitations. No cough or wheezing. Last Vital Signs Temp Pulse Resp BP Pulse Ox 98.1 F 76 18 164/76 91 L 09/03/16 10:00 09/03/16 10:00 09/03/16 10:00 09/03/16 10:00 09/03/16 09:41 Gen: NAD in chair Heart: RRR, +systolic murmur Lung: decreased breath sounds at the bases Abd: soft, nontender Ext: no edema CBC, BMP 09/02/16 05:15 09/02/16 12:25 Active Medications Acetaminophen (Tylenol -) 650 mg PO Q4H PRN PRN Reason: FEVER OR PAIN Albuterol/Ipratropium (Duoneb -) 1 amp NEB QIDR [facility] Last Admin: 09/03/16 12:08 Dose: 1 amp Aspirin (Asa -) 81 mg PO DAILY [facility] Last Admin: 09/03/16 09:58 Dose: 81 mg Diltiazem HCl (Cardizem Cd -) 240 mg PO DAILY [facility] Last Admin: 09/03/16 09:58 Dose: 240 mg Furosemide (Lasix Injection -) 40 mg IVPUSH DAILY [facility] Insulin Aspart (Novolog Vial Sliding Scale -) 1 vial SQ ACHS [facility] PRN Reason: Protocol Last Admin: 09/03/16 10:57 Dose: 11 units Nicotine (Nicoderm Patch -) 14 mg TD DAILY [facility] Last Admin: 09/03/16 11:36 Dose: 14 mg Nitroglycerin (Nitro-Bid 2% Paste -) 1 inch TD Q6HPO [facility] Last Admin: 09/03/16 11:05 Dose: 1 inch Pantoprazole Sodium (Protonix -) 40 mg PO DAILY [facility] Last Admin: 09/03/16 09:59 Dose: 40 mg Rosuvastatin Calcium (Crestor -) 20 mg PO HS [facility] Last Admin: 09/02/16 21:01 Dose: 20 mg Sitagliptin Phosphate (Januvia -) 50 mg PO DAILY@0700 [facility] Last Admin: 09/03/16 06:26 Dose: 50 mg Valsartan (Diovan -) 320 mg PO DAILY [facility] Last Admin: 09/03/16 09:59 Dose: 320 mg A/P Acute on Chronic Hypoxic and Hypercapneic Respiratory Failure improving Acute on Chronic Systolic Heart Failure Severe Mitral Regurgitation +Troponins likely demand ischemia COPD Acute Kidney Injury CAD DM - lasix as needed - monitor urine output, creatinine - inhaled bronchodilators - O2 to keep SpO2 >90% - OOB to chair - DVT prophylaxis - for cardiac cath
--- NOTE | 2016-09-03 13:47 | PN ---
Progress Note, Physician Chief Complaint: less sob sitting up. tele neg. History of Present Illness: 81 year old female with pmhx of htn, hld, dm, cad s/p stents in past, ?systolic chf, and copd presenting with sob. Getting IV lasix with relief. Feels better but not at baseline yet. No further NSVT on telemetry. EPIC notes reviewed last echo 04/[address] Nye office normal EF severe MR. lasix held 09/01/16 due to rising bun/creat. Echo 09/02/16 tds normal ef severe MR, [id number] - Current Medication List Current Medications: Active Medications Acetaminophen (Tylenol -) 650 mg PO Q4H PRN PRN Reason: FEVER OR PAIN Albuterol/Ipratropium (Duoneb -) 1 amp NEB QIDR [facility] Last Admin: 09/03/16 12:08 Dose: 1 amp Aspirin (Asa -) 81 mg PO DAILY [facility] Last Admin: 09/03/16 09:58 Dose: 81 mg Diltiazem HCl (Cardizem Cd -) 240 mg PO DAILY [facility] Last Admin: 09/03/16 09:58 Dose: 240 mg Furosemide (Lasix Injection -) 40 mg IVPUSH DAILY [facility] Insulin Aspart (Novolog Vial Sliding Scale -) 1 vial SQ ACHS [facility] PRN Reason: Protocol Last Admin: 09/03/16 10:57 Dose: 11 units Nicotine (Nicoderm Patch -) 14 mg TD DAILY [facility] Last Admin: 09/03/16 11:36 Dose: 14 mg Nitroglycerin (Nitro-Bid 2% Paste -) 1 inch TD Q6HPO [facility] Last Admin: 09/03/16 11:05 Dose: 1 inch Pantoprazole Sodium (Protonix -) 40 mg PO DAILY [facility] Last Admin: 09/03/16 09:59 Dose: 40 mg Rosuvastatin Calcium (Crestor -) 20 mg PO HS [facility] Last Admin: 09/02/16 21:01 Dose: 20 mg Sitagliptin Phosphate (Januvia -) 50 mg PO DAILY@0700 [facility] Last Admin: 09/03/16 06:26 Dose: 50 mg Valsartan (Diovan -) 320 mg PO DAILY [facility] Last Admin: 09/03/16 09:59 Dose: 320 mg - Objective Vital Signs: Vital Signs Temperature 98.1 F 09/03/16 10:00 Pulse Rate 76 09/03/16 10:00 Respiratory Rate 18 09/03/16 10:00 Blood Pressure 164/76 09/03/16 10:00 O2 Sat by Pulse Oximetry (%) 91 L 09/03/16 09:41 Constitutional: Yes: Well Nourished, No Distress Eyes: Yes: Conjunctiva Clear, EOM Intact HENT: Yes: Atraumatic, Normocephalic Neck: Yes: Supple, Trachea Midline Cardiovascular: Yes: Regular Rate and Rhythm, Murmur (2/6 hsm apex to base), S1 , S2 Respiratory: Yes: CTA Bilaterally Gastrointestinal: Yes: Normal Bowel Sounds, Soft Musculoskeletal: Yes: WNL Extremities: Yes: WNL Edema: No Peripheral Pulses WNL: Yes Labs: CBC, BMP 09/02/16 05:15 09/02/16 12:25 INR, PTT INR 0.96 (0.82-1.09) 08/30/16 09:31 Problem List - Problems (1) CHF (congestive heart failure) Assessment/Plan: 1) Acute on chronic systolic CHF improving. stable on medications. monitor I/O's and lytes and bun/cr Daily weights Continue home valsartan Monitor on tele. Code(s): I50.9 - HEART FAILURE, UNSPECIFIED Qualifiers: Congestive heart failure type: unspecified congestive heart failure type Congestive heart failure chronicity: acute on chronic Qualified Code(s ): I50.9 - Heart failure, unspecified (2) Mitral valve regurgitation Assessment/Plan: she has severe MR on examination and echo. She needs cath to assess. plan is transfer 09/04/16 for cath. Code(s): I34.0 - NONRHEUMATIC MITRAL (VALVE) INSUFFICIENCY (3) CAD S/P percutaneous coronary angioplasty Assessment/Plan: Small omid leak post event, may be demand ischemia vs cad. echo normal ef plan is for cath wednesday09/04/16. All questions answered. Code(s): I25.10 - ATHSCL HEART DISEASE OF [place] CORONARY ARTERY W/O ANG PCTRS Z98.61 - CORONARY ANGIOPLASTY STATUS (4) NSVT (nonsustained ventricular tachycardia) Code(s): I47.2 - VENTRICULAR TACHYCARDIA
[2016-09-03] MEDS: ROSUVASTATIN CA 20 MG TABLET (FP) PO SCH (22:23)
[2016-09-04] MEDS: NITROGLYCERIN 2% OINTMENT - 1GM PACKET TD SCH ×2 (00:20→06:22)
[2016-09-04 05:51] VITALS: TEMP 98.2
[2016-09-04] MEDS: ALBUTEROL SO4 2.5/IPRATROPIUM 0.5 INH SOL 3 ML VIAL.NEB. NEB SCH (06:27)
[2016-09-04] MEDS: sitaGLIPtin PHOSPHATE 50 MG TABLET PO SCH (06:28)
[2016-09-04] MEDS: INSULIN SLIDING SCALE (NOVOLOG) 1 VIAL SQ SCH (06:29)
[2016-09-04 07:22] LABS: ANION GAP 7 (8-16); CALCIUM 8.3 mg/dL (8.5-10.1); CO2 37 mmol/L (21-32); GLUCOSE,RANDOM 195 mg/dL (74-106)
[2016-09-04 07:24] LABS: CREATININE 1.2 mg/dL (0.55-1.02)
[2016-09-04] MEDS: VALSARTAN 160 MG TABLET (UD) PO SCH (09:37)
[2016-09-04] MEDS: PANTOPRAZOLE 40 MG TABLET (FP) PO SCH (09:37)
[2016-09-04] MEDS: ASPIRIN 81 MG CHEWABLE TABLETS PO SCH (09:37)
[2016-09-04] MEDS: NICOTINE 14 MG/24 HOURS TOPICAL PATCH TD SCH (09:38)
[2016-09-04] MEDS ORDERED: PT OWN MED DRAWER 7, Y5N ONE (09:53)
[2016-09-04] MEDS ORDERED: FUROSEMIDE 40 MG/4 ML INJECTABLE VIAL IVPUSH SCH (10:00)
[2016-09-04 10:21] VITALS: BP 139/82; PULSE 78
--- NOTE | 2016-09-04 10:55 | DS ---
Physical Examination Vital Signs: Vital Signs Temperature 98.2 F 09/04/16 09:00 Pulse Rate 78 09/04/16 09:00 Respiratory Rate 20 09/04/16 09:00 Blood Pressure 139/82 09/04/16 09:00 O2 Sat by Pulse Oximetry (%) 93 L 09/04/16 10:00 Labs: CBC, BMP 09/02/16 05:15 09/04/16 05:35 Discharge Summary Reason For Visit: CHF, COPD Hospital Course: 81 y/o woman with poorly controlled DM2, COPD, CAD, CHF (on home Oxygen 2L) who presents to the ED via EMS with SOB and hypoxia. She denied fevers, chills, cough and sick contacts. In the ED she was in significant distress, ABG showed mixed hypercapnic/hypoxemic respiratory failure. She was given nebs, steroids, abx, Lasix and placed on NIPPV. CXR shows pulm edema, BNP is >1300. in hospital was on iv lasix for acute on chronic systolic heart failure improved echo shows severe MR transferred to [facility] for cardiac cath Condition: Critical - Instructions Referrals: Aman Russell MD [Primary Care Provider] - Disposition: TRANSFER ACUTE CARE/OTHER HOSP - Home Medications Comprehensive Discharge Medication List: Ambulatory Orders Diltiazem Cd [Cardizem Cd -] 240 mg PO DAILY 02/25/12 Rosuvastatin Calcium [Crestor] 20 mg PO HS 02/25/12 Aspirin [ASA -] 81 mg PO DAILY #0 tab.chew 02/29/12 Nicotine Patch [Nicoderm Patch -] 21 mg TD DAILY #0 patch 02/29/12 Glyburide 5 mg PO BID 11/01/13 Albuterol 2.5/Ipratropium 0.5 [Duoneb -] 1 neb NEB TIDR #120 vial 11/08/13 Furosemide [Lasix -] 40 mg PO DAILY #30 tablet 11/08/13 Metformin HCl [Glucophage -] 1,000 mg PO BIDI #60 tablet 11/08/13 Prednisone [Deltasone -] 10 mg PO DAILY #120 tablet 11/08/13 Salmeterol/Fluticasone [Advair 250Mcg/50Mcg -] 1 inh PO BID #1 11/08/13 Sitagliptin Phosphate [Januvia -] 50 mg PO DAILY@0700 #30 tablet 11/08/13 Valsartan [Tienvan] 320 mg PO DAILY #30 tablet 11/08/13
== END 2016-09-04 10:00 | disposition short-term general hospital (02) | DRG 189 ==
LOC: JER 09:26 → JERBED 10:16 → JICU 11:40 → J4S 09-02 13:33
PROVIDERS: ADMIT Family Medicine; ATTEND Family Medicine
PROC: 5A09357 Assistance with Respiratory Ventilation, Less than 24 Consecutive Hours, Continuous Positive Airway Pressure (ICD-10-PCS; principal; 2016-08-30)
PROC: 3E0F7GC Introduction of Other Therapeutic Substance into Respiratory Tract, Via Natural or Artificial Opening (ICD-10-PCS; 2016-08-31)
DX: J96.22 Acute and chronic respiratory failure with hypercapnia (principal); I21.4 Non-ST elevation (NSTEMI) myocardial infarction; I50.23 Acute on chronic systolic (congestive) heart failure; N17.9 Acute kidney failure, unspecified; I47.2 Ventricular tachycardia; I11.0 Hypertensive heart disease with heart failure; J96.21 Acute and chronic respiratory failure with hypoxia; I25.10 Atherosclerotic heart disease of native coronary artery without angina pectoris; Z95.5 Presence of coronary angioplasty implant and graft; E78.5 Hyperlipidemia, unspecified; E11.9 Type 2 diabetes mellitus without complications; Z79.4 Long term (current) use of insulin; J44.9 Chronic obstructive pulmonary disease, unspecified; Z99.81 Dependence on supplemental oxygen; F17.210 Nicotine dependence, cigarettes, uncomplicated; I34.0 Nonrheumatic mitral (valve) insufficiency
CPT/HCPCS: 36415; 36600; 71010-TC; 71250-TC; 80048; 80053; 81003; 81015; 82375; 82550; 82803; 82947; 83036; 83050; 83735; 83880; 84100; 84484; 85025; 85610; 87040; 87086; 93005; 93010; 93306-TC; 93970-TC; 94640; 94660; 97116-GP; 97161-GP; 99284-25

== ENCOUNTER 2016-11-15 09:29 | Inpatient (IN) | payer OTHER ==
[2016-11-15] MEDS ORDERED: methylPREDNISolone NA SUCC 125 MG/2 ML VIAL IVPB ONE (09:41)
[2016-11-15] MEDS ORDERED: MAGNESIUM SULF 50% (8.12 MEQ/2 ML-1 GM VIAL) IVPB ONE (09:41)
[2016-11-15] MEDS ORDERED: FUROSEMIDE 40 MG/4 ML INJECTABLE VIAL IVPUSH ONE (09:41)
[2016-11-15] MEDS ORDERED: ALBUTEROL SO4 0.083% IH SOL 2.5 MG/3 ML VIAL.NEB. NEB ONE ×2 (09:43→09:55)
[2016-11-15] MEDS ORDERED: ALBUTEROL SO4 2.5/IPRATROPIUM 0.5 INH SOL 3 ML VIAL.NEB. NEB ONE ×2 (09:43→09:57)
--- NOTE | 2016-11-15 09:49 | PDOC ---
History of Present Illness <Joseph Bustos - Last Filed: 11/15/16 09:51> - General History Source: EMS, Family (Daughter) Exam Limitations: Clinical Condition - History of Present Illness Initial Comments: 11/15/16 09:56 Patient is a 81 year old female with a significant past medical history of COPD AND CHF, CAD (S/P STENTING), HTN, Hyperlipidemia, COPD, O2 Dependent, Chronic low back pain, Diabetes Mellitus who was brought by EMS to the ED with complaints of SOB beginning this morning. Patient's daughter reports patient woke up this morning and was having trouble breathing. Patients daugher reports patient usually has trouble breathing initially every morning and begins to get better as the day goes on. Patient's daughter reports patient came to the ED in july for the same SOB problem. Patient's daughter states patient has a leaky valve. As per EMS patient took albuterol x1 by herself this morning. Denies Allergies: None Social history: Current Day smoker, No alcohol. No illicit drugs. Surgical history PMD: Dr. Aman Russell <Lanre Sultana - Last Filed: 11/15/16 10:16> - General Chief Complaint: Respiratory Distress Stated Complaint: RESPIRATORY DISTRESS Time Seen by Provider: 11/15/16 09:35 Past History - Past Medical History Anemia: No Asthma: No Cancer: No Cardiac Disorders: Yes (s/p stents x 2, aortic valve leaking) CVA: No COPD: Yes CHF: Yes Dementia: No Diabetes: Yes GI Disorders: No Disorders: No HTN: Yes Hypercholesterolemia: Yes Liver Disease: No Seizures: No Thyroid Disease: No - Surgical History Abdominal Surgery: No Appendectomy: No Cardiac Surgery: Yes (stents) Cholecystectomy: No Lung Surgery: No Neurologic Surgery: No Orthopedic Surgery: Yes (Left wrist) - Immunization History Immunization Up to Date: Yes - Psycho/Social/Smoking Cessation Hx Anxiety: No Suicidal Ideation: No Smoking Status: No Smoking History: Former smoker Have you smoked in the past 12 months: No Number of Cigarettes Smoked Daily: 5 If you are a former smoker, when did you quit?: 3-4 years ago Cigars Per Day: 0 Information on smoking cessation initiated: No 'Breaking Loose' booklet given: 08/31/11 Hx Alcohol Use: No Drug/Substance Use Hx: No Substance Use Type: None Hx Substance Use Treatment: No <Joseph Bustos - Last Filed: 11/15/16 09:51> <RdLanre - Last Filed: 11/15/16 10:16> - Past Medical History Allergies/Adverse Reactions: Allergies Allergy/AdvReac Type Severity Reaction Status Date / Time No Known Allergies Allergy Verified 11/15/16 09:41 Home Medications: Ambulatory Orders Diltiazem Cd [Cardizem Cd -] 240 mg PO DAILY 02/25/12 Rosuvastatin Calcium [Crestor] 20 mg PO HS 02/25/12 Aspirin [ASA -] 81 mg PO DAILY #0 tab.chew 02/29/12 Nicotine Patch [Nicoderm Patch -] 21 mg TD DAILY #0 patch 02/29/12 Glyburide 5 mg PO BID 11/01/13 Albuterol 2.5/Ipratropium 0.5 [Duoneb -] 1 neb NEB TIDR #120 vial 11/08/13 Furosemide [Lasix -] 40 mg PO DAILY #30 tablet 11/08/13 Metformin HCl [Glucophage -] 1,000 mg PO BIDI #60 tablet 11/08/13 Prednisone [Deltasone -] 10 mg PO DAILY #120 tablet 11/08/13 Salmeterol/Fluticasone [Advair 250Mcg/50Mcg -] 1 inh PO BID #1 11/08/13 Sitagliptin Phosphate [Januvia -] 50 mg PO DAILY@0700 #30 tablet 11/08/13 Valsartan [Diovan] 320 mg PO DAILY #30 tablet 11/08/13 Review of Systems - Review of Systems Able to Perform ROS?: Yes Comments:: 11/15/16 09:56 GENERAL/CONSTITUTIONAL: No fever or chills. No weakness. HEAD, EYES, EARS, NOSE AND THROAT: No change in vision. No ear pain or discharge. No sore throat. CARDIOVASCULAR: No chest pain or shortness of breath. RESPIRATORY: +SOB No cough, wheezing, or hemoptysis. GASTROINTESTINAL: No nausea, vomiting, diarrhea or constipation. GENITOURINARY: No dysuria, frequency, or change in urination. MUSCULOSKELETAL: No joint or muscle swelling or pain. No neck or back pain. SKIN: No rash NEUROLOGIC: No headache, vertigo, loss of consciousness, or change in strength/ sensation. ENDOCRINE: No increased thirst. No abnormal weight change. HEMATOLOGIC/LYMPHATIC: No anemia, easy bleeding, or history of blood clots. ALLERGIC/IMMUNOLOGIC: No hives or skin allergy. All Other Systems: Reviewed and Negative <Lanre Sultana - Last Filed: 11/15/16 10:16> *Physical Exam - Vital Signs Last Vital Signs Temp Pulse Resp BP Pulse Ox 103 H 28 H 180/76 100 11/15/16 09:34 11/15/16 09:32 11/15/16 09:32 11/15/16 09:34 <JesusJoseph olivo - Last Filed: 11/15/16 09:51> - Vital Signs Last Vital Signs Temp Pulse Resp BP Pulse Ox 103 H 28 H 180/76 100 11/15/16 09:34 11/15/16 09:32 11/15/16 09:32 11/15/16 09:34 - Physical Exam Comments: 11/15/16 09:56 GENERAL: Awake, alert, and fully oriented. HEAD: No signs of trauma EYES: PERRLA, EOMI, sclera anicteric, conjunctiva clear ENT: +JVD in neck. Auricles normal inspection, hearing grossly normal, nares patent, oropharynx clear without exudates. Moist mucosa NECK: Normal ROM, supple, no lymphadenopathy, JVD, or masses LUNGS: Breath sounds equal, clear to auscultation bilaterally. No wheezes, and no crackles HEART: + Rails. + Aortic mitral murmur. Regular rate, normal S1 and S2, No rubs or gallops ABDOMEN: Soft, nontender, normoactive bowel sounds. No guarding, no rebound. No masses EXTREMITIES: +2+ pitting edema all the way up to her knees. Normal range of motion, no edema. No clubbing or cyanosis. No cords, erythema, or tenderness NEUROLOGICAL: Cranial nerves II through XII grossly intact. Normal speech, normal gait SKIN: Warm, Dry, normal turgor, no rashes or lesions noted. <Lanre Sultana - Last Filed: 11/15/16 10:16> Heart Score/ECG Review - ECG Intrepretation Comment:: 11/15/16 10:12 Luis Armando, rate 83 bpm NM interval * ms QRS 116 ms QT/QTc 408/479 ms P-R-T axes * 44 146 Atrial fibrillation with premature ventricular or aberrantly conducted complexes Anterior infarct, age undetermined. ST & T wave abnormality, consider lateral ischemia Abnormal telephone engineer: Ramon pandey <Lanre Sultana - Last Filed: 11/15/16 10:16> ED Treatment Course - RADIOLOGY Radiology Studies Ordered: Category Date Time Status CHEST X-RAY PORTABLE* [RAD] Stat Radiology 11/15/16 09:35 Taken <Joseph Bustos - Last Filed: 11/15/16 09:51> - LABORATORY CBC & Chemistry Diagram: 11/15/16 09:45 11/15/16 09:45 <Lanre Sultana - Last Filed: 11/15/16 10:16> Medical Decision Making - Medical Decision Making 11/15/16 09:[address] Lubin @9:45am. Case Discussed. Called Dr. Russell @9:49am. Awaiting callback. <Lanre Sultana - Last Filed: 11/15/16 10:16> *DC/Admit/Observation/Transfer - Discharge Dispostion Admit: Yes - Attestations Physician Attestion: 11/15/16 09:49 I, Dr. Joseph Bustos, attest that this document has been prepared under my direction and personally reviewed by me in its entirety. I further attest, that it accurately reflects all work, treatment, procedures and medical decision -making performed by me. <Joseph Bustos - Last Filed: 11/15/16 09:51> - Attestations Scribe Attestion: 11/15/16 09:57 Documentation prepared by Lanre Sultana, acting as emergency medical technician/driver for Joseph Bustos MD/DO. <Lanre Sultana - Last Filed: 11/15/16 10:16> Diagnosis at time of Disposition: CAD S/P percutaneous coronary angioplasty, Smoking, Dyslipidemia Diabetes mellitus, insulin dependent (IDDM), uncontrolled Qualifiers: Diabetes mellitus complication status: with unspecified complications Qualified Code(s): E10.8 - Type 1 diabetes mellitus with unspecified complications CHF (congestive heart failure) Qualifiers: Congestive heart failure type: combined Congestive heart failure chronicity: acute on chronic Qualified Code(s): I50.43 - Acute on chronic combined systolic (congestive) and diastolic (congestive) heart failure Mitral valve regurgitation Qualifiers: Cardiac valve disease etiology: etiology unspecified Qualified Code(s): I34.0 - Nonrheumatic mitral (valve) insufficiency COPD (chronic obstructive pulmonary disease) Qualifiers: COPD type: COPD with acute exacerbation Qualified Code(s): J44.1 - Chronic obstructive pulmonary disease with (acute) exacerbation Respiratory failure Qualifiers: Chronicity: acute on chronic Respiratory failure complication: hypoxia and hypercapnia Qualified Code(s): J96.21 - Acute and chronic respiratory failure with hypoxia HTN (hypertension) Qualifiers: Hypertension type: essential hypertension Qualified Code(s): I10 - Essential ( primary) hypertension - Discharge Dispostion Condition at time of disposition: Improved - Referrals
[2016-11-15 09:54] LABS: BASOPHIL 0.7 % (0-2.0); EOSINOPHIL 2.1 % (0-4.5); MCHC 30.6 g/dl (32.0-36.0); MEAN PLT VOLUME 9.6 fl (7.5-11.1); NEUTROPHILS 67.6 % (42.8-82.8); PLATELET COUNT 278 K/MM3 (134-434); RDW 18.4 % (11.6-15.6); WHITE BLOOD COUNT 11.9 K/mm3 (4.0-10.0)
[2016-11-15] MEDS ORDERED: DEXAMETHASONE SOD PHOSPHATE 10 MG/1 ML VIAL ONE (09:56)
[2016-11-15] MEDS ORDERED: MAGNESIUM SULF 50% (8.12 MEQ/2 ML-1 GM VIAL) ONE (09:56)
[2016-11-15] MEDS ORDERED: methylPREDNISolone NA SUCC 125 MG/2 ML VIAL ONE (09:57)
[2016-11-15] MEDS ORDERED: AZITHROMYCIN IVPB 500 MG in DEXTROSE 5%-WATER - 250 ML IVPB ONE (09:57)
[2016-11-15] MEDS ORDERED: FUROSEMIDE 40 MG/4 ML INJECTABLE VIAL ONE (09:57)
[2016-11-15] MEDS ORDERED: CEFTRIAXONE 1,000 MG in DEXTROSE 5%-WATER - 50 ML IVPB ONE (09:57)
[2016-11-15 10:05] LABS: VENOUS BLOOD GAS HCO3 24.9 meq/L (19-25)
[2016-11-15 10:07] LABS: VENOUS PH 7.23 (7.32-7.42)
[2016-11-15 10:11] LABS: INR 1.11 (0.82-1.09); PROTHROMBIN TIME (PATIENT) 12.2 SEC (9.98-11.88)
[2016-11-15 10:14] LABS: ACTIVATED PTT 33.4 SECONDS (26.9-34.4)
[2016-11-15] MEDS ORDERED: AZITHROMYCIN IVPB 250 ML IVPB ONE (10:16)
[2016-11-15] MEDS ORDERED: CEFTRIAXONE 50 ML ONE ×2 (10:16→10:17)
[2016-11-15 10:20] LABS: ALBUMIN 3.4 g/dl (3.4-5.0); ANION GAP 9 (8-16); BILIRUBIN,TOTAL 0.7 mg/dL (0.2-1.0); CALCIUM 8.5 mg/dL (8.5-10.1); CO2 26 mmol/L (21-32); CREATININE 1.4 mg/dL (0.55-1.02); SGOT/AST 19 U/L (15-37); SGPT/ALT 24 U/L (12-78); TOT PROT 6.7 g/dl (6.4-8.2)
[2016-11-15 10:22] LABS: ALK PHOS 70 U/L (45-117); CPK 43 IU/L (26-192); TROPONIN I 0.04 ng/ml (0.00-0.05)
[2016-11-15 10:27] LABS: ARTERIAL BLOOD GAS BASE EXCESS 0.4 meq/l (-2-2); ARTERIAL BLOOD GAS HCO3 26.2 meq/L (22-26); ARTERIAL BLOOD GAS pH 7.33 (7.35-7.45)
[2016-11-15 10:27] LABS: GLUCOSE,RANDOM 319 mg/dL (74-106)
[2016-11-15 10:29] LABS: ALLENS TEST POSITIVE; ART PUNCT SITE RIGHT RADIAL; LPM/O2% 100%; PT. ON O2? YES
[2016-11-15 10:30] LABS: VENT RATE 12
[2016-11-15 10:35] LABS: METHEMOGLOBIN 0.1 % (0.4-1.5)
[2016-11-15 10:42] LABS: URINE APPEARANCE CLEAR; URINE BILIRUBIN NEGATIVE (NEGATIVE); URINE BLOOD NEGATIVE (NEGATIVE); URINE COLOR STRAW; URINE GLUCOSE (UA) 1+ (NEGATIVE); URINE KETONE NEGATIVE (NEGATIVE); URINE LEUK ESTERASE NEGATIVE (NEGATIVE); URINE NITRITE NEGATIVE (NEGATIVE); URINE PROTEIN NEGATIVE (NEGATIVE); URINE UROBILINOGEN NEGATIVE mg/dL (0.2-1.0)
[2016-11-15 12:52] VITALS: BMI 27.4
--- NOTE | 2016-11-15 14:00 | HP ---
Admitting History and Physical - Primary Care Physician PCP: Aman Russell - Admission Chief Complaint: resp distress History of Present Illness: Patient is a 81 year old female with a significant past medical history of COPD AND CHF, CAD (S/P STENTING), HTN, Hyperlipidemia, COPD, O2 Dependent, Chronic low back pain, Diabetes Mellitus who was brought by EMS to the ED with complaints of SOB beginning this morning. Patient's daughter reports patient woke up this morning and was having trouble breathing. Patients daugher reports patient usually has trouble breathing initially every morning and begins to get better as the day goes on. Patient's daughter reports patient came to the ED in july for the same SOB problem. Patient's daughter states patient has a leaky valve. As per EMS patient took albuterol x1 by herself this morning. History Source: Patient, Family Member Limitations to Obtaining History: No Limitations - Past Medical History Cardiovascular: Yes: CAD (S/P STENTING), HTN, Hyperlipdemia Pulmonary: Yes: COPD, O2 Dependent Musculoskeletal: Yes: Chronic low back pain Endocrine: Yes: Diabetes Mellitus - Smoking History Smoking history: Former smoker Have you smoked in the past 12 months: No Aproximately how many cigarettes per day: 5 If you are a former smoker, when did you quit?: 3-4 years ago - Alcohol/Substance Use Hx Alcohol Use: No Home Medications - Allergies Allergies/Adverse Reactions: Allergies Allergy/AdvReac Type Severity Reaction Status Date / Time No Known Allergies Allergy Verified 11/15/16 09:41 - Home Medications Home Medications: Ambulatory Orders Cholecalciferol (Vitamin D3) [Vitamin D3] 50,000 unit PO WEEKLY 11/15/16 Diltiazem Cd [Cardizem Cd -] 240 mg PO DAILY 11/15/16 Furosemide 20 mg PO DAILY 11/15/16 Glyburide 5 mg PO BID 11/15/16 Metformin HCl 500 mg PO BID 11/15/16 Rosuvastatin [Crestor -] 20 mg PO DAILY 11/15/16 Valsartan 320 mg PO DAILY 11/15/16 Review of Systems - Review of Systems Constitutional: reports: Weakness Eyes: reports: No Symptoms HENT: reports: No Symptoms Neck: reports: No Symptoms Cardiovascular: reports: No Symptoms Respiratory: reports: SOB Gastrointestinal: reports: No Symptoms Genitourinary: reports: No Symptoms Musculoskeletal: reports: No Symptoms Integumentary: reports: No Symptoms Neurological: reports: No Symptoms Endocrine: reports: No Symptoms Hematology/Lymphatic: reports: No Symptoms Psychiatric: reports: No Symptoms Physical Examination Vital Signs: Vital Signs Temperature Pulse Rate 75 11/15/16 12:44 Respiratory Rate 28 H 11/15/16 12:44 Blood Pressure 153/70 11/15/16 12:44 O2 Sat by Pulse Oximetry (%) 92 L 11/15/16 12:44 Constitutional: Yes: Mild Distress Eyes: Yes: WNL HENT: Yes: WNL Neck: Yes: WNL Cardiovascular: Yes: Murmur Respiratory: Yes: On BiPap, Poor Air Entry, SOB Gastrointestinal: Yes: WNL Renal/: Yes: WNL Musculoskeletal: Yes: Muscle Weakness Extremities: Yes: WNL Edema: No Peripheral Pulses WNL: Yes Integumentary: Yes: WNL Wound/Incision: Yes: Clean/Dry Neurological: Yes: WNL ...Motor Strength: WNL Psychiatric: Yes: WNL Imaging - Results Chest X-ray: Report Reviewed Problem List - Problems (1) CAD S/P percutaneous coronary angioplasty Code(s): I25.10 - ATHSCL HEART DISEASE OF [place] CORONARY ARTERY W/O ANG PCTRS Z98.61 - CORONARY ANGIOPLASTY STATUS (2) CHF (congestive heart failure) Code(s): I50.9 - HEART FAILURE, UNSPECIFIED Qualifiers: Congestive heart failure type: combined Congestive heart failure chronicity: acute on chronic Qualified Code(s): I50.43 - Acute on chronic combined systolic (congestive) and diastolic (congestive) heart failure (3) COPD (chronic obstructive pulmonary disease) Code(s): J44.9 - CHRONIC OBSTRUCTIVE PULMONARY DISEASE, UNSPECIFIED Qualifiers : COPD type: COPD with acute exacerbation Qualified Code(s): J44.1 - Chronic obstructive pulmonary disease with (acute) exacerbation (4) Diabetes mellitus, insulin dependent (IDDM), uncontrolled Code(s): E10.65 - TYPE 1 DIABETES MELLITUS WITH HYPERGLYCEMIA Qualifiers: Diabetes mellitus complication status: with unspecified complications Qualified Code(s): E10.8 - Type 1 diabetes mellitus with unspecified complications; E10.65 - Type 1 diabetes mellitus with hyperglycemia (5) Dyslipidemia Code(s): E78.5 - HYPERLIPIDEMIA, UNSPECIFIED (6) HTN (hypertension) Code(s): I10 - ESSENTIAL (PRIMARY) HYPERTENSION Qualifiers: Hypertension type: essential hypertension Qualified Code(s): I10 - Essential (primary) hypertension (7) Mitral valve regurgitation Code(s): I34.0 - NONRHEUMATIC MITRAL (VALVE) INSUFFICIENCY Qualifiers: Cardiac valve disease etiology: etiology unspecified Qualified Code(s) : I34.0 - Nonrheumatic mitral (valve) insufficiency (8) Respiratory failure Code(s): J96.90 - RESPIRATORY FAILURE, UNSP, UNSP W HYPOXIA OR HYPERCAPNIA Qualifiers: Chronicity: acute on chronic Respiratory failure complication: hypoxia and hypercapnia Qualified Code(s): J96.21 - Acute and chronic respiratory failure with hypoxia Assessment/Plan COPD ACUTE ON CHRONIC BIPAP FOR RESP SUPPORT CHF ON LASIX CARDIOLOGY FOLLOW UP S/P CARDIAC CATH SSI ADA ABX PER ID
--- NOTE | 2016-11-15 14:18 | CONSULT ---
Consult Consult Specialty:: PULM/CCM Referred by:: BRANDON Reason for Consultation:: SOB - History of Present Illness Chief Complaint: SOB History of Present Illness: 81 F, O2 dependent COPD, CHF, CAD (S/P PCI), HTN, Hyperlipidemia, chronic low back pain, and Diabetes Mellitus. Apparently the patient continues to smoke. Admitted vis the ER due to progressive SOB. Patient was admitted on 08/2016 for AE of COPD. No travel history or sick contacts. No fever or chills or hemoptysis. Due to severe respiratory distress and hypoxemia she was placed on NIPPV with good clinical improvement. CXR : increased vascular markings and infiltrates. - History Source History Provided By: Patient, Medical Record Limitations to Obtaining History: Clinical Condition - Past Medical History Cardio/Vascular: Yes: CAD (S/P STENTING), HTN, Hyperlipdemia Pulmonary: Yes: COPD, O2 Dependent Musculoskeletal: Yes: Chronic low back pain Endocrine: Yes: Diabetes Mellitus - Alcohol/Substance Use Hx Alcohol Use: No - Smoking History Smoking history: Former smoker Have you smoked in the past 12 months: No Aproximately how many cigarettes per day: 5 If you are a former smoker, when did you quit?: 3-4 years ago Home Medications - Allergies Allergies/Adverse Reactions: Allergies Allergy/AdvReac Type Severity Reaction Status Date / Time No Known Allergies Allergy Verified 11/15/16 09:41 - Home Medications Home Medications: Ambulatory Orders Cholecalciferol (Vitamin D3) [Vitamin D3] 50,000 unit PO WEEKLY 11/15/16 Diltiazem Cd [Cardizem Cd -] 240 mg PO DAILY 11/15/16 Furosemide 20 mg PO DAILY 11/15/16 Glyburide 5 mg PO BID 11/15/16 Metformin HCl 500 mg PO BID 11/15/16 Rosuvastatin [Crestor -] 20 mg PO DAILY 11/15/16 Valsartan 320 mg PO DAILY 11/15/16 Review of Systems Unable to obtain ROS, reason: Unable to provide Physical Exam Vital Signs: Vital Signs Temperature Pulse Rate 75 11/15/16 12:44 Respiratory Rate 28 H 11/15/16 12:44 Blood Pressure 153/70 11/15/16 12:44 O2 Sat by Pulse Oximetry (%) 92 L 11/15/16 12:44 Constitutional: Yes: Moderate Distress Eyes: Yes: Conjunctiva Clear, EOM Intact HENT: Yes: Atraumatic, Normocephalic Neck: Yes: Supple, Trachea Midline Cardiovascular: Yes: Tachycardia Respiratory: Yes: Accessory Muscle Use, Cough, On BiPap, Rales, Rhonchi, SOB, Tachypnea, Wheezes. No: Stridor Gastrointestinal: Yes: Normal Bowel Sounds, Soft Renal/: Yes: WNL Musculoskeletal: Yes: WNL Extremities: Yes: WNL Edema: Yes Peripheral Pulses WNL: Yes Integumentary: Yes: WNL Neurological: Yes: Confusion Imaging - Results Chest X-ray: Report Reviewed, Image Reviewed Problem List - Problems (1) CAD S/P percutaneous coronary angioplasty Code(s): I25.10 - ATHSCL HEART DISEASE OF [place] CORONARY ARTERY W/O ANG PCTRS Z98.61 - CORONARY ANGIOPLASTY STATUS (2) CHF (congestive heart failure) Code(s): I50.9 - HEART FAILURE, UNSPECIFIED Qualifiers: Congestive heart failure type: combined Congestive heart failure chronicity: acute on chronic Qualified Code(s): I50.43 - Acute on chronic combined systolic (congestive) and diastolic (congestive) heart failure (3) COPD (chronic obstructive pulmonary disease) Code(s): J44.9 - CHRONIC OBSTRUCTIVE PULMONARY DISEASE, UNSPECIFIED Qualifiers : COPD type: COPD with acute exacerbation Qualified Code(s): J44.1 - Chronic obstructive pulmonary disease with (acute) exacerbation (4) Diabetes mellitus, insulin dependent (IDDM), uncontrolled Code(s): E10.65 - TYPE 1 DIABETES MELLITUS WITH HYPERGLYCEMIA Qualifiers: Diabetes mellitus complication status: with unspecified complications Qualified Code(s): E10.8 - Type 1 diabetes mellitus with unspecified complications; E10.65 - Type 1 diabetes mellitus with hyperglycemia (5) Dyslipidemia Code(s): E78.5 - HYPERLIPIDEMIA, UNSPECIFIED (6) HTN (hypertension) Code(s): I10 - ESSENTIAL (PRIMARY) HYPERTENSION Qualifiers: Hypertension type: essential hypertension Qualified Code(s): I10 - Essential (primary) hypertension (7) Mitral valve regurgitation Code(s): I34.0 - NONRHEUMATIC MITRAL (VALVE) INSUFFICIENCY Qualifiers: Cardiac valve disease etiology: etiology unspecified Qualified Code(s) : I34.0 - Nonrheumatic mitral (valve) insufficiency (8) Respiratory failure Code(s): J96.90 - RESPIRATORY FAILURE, UNSP, UNSP W HYPOXIA OR HYPERCAPNIA Qualifiers: Chronicity: acute on chronic Respiratory failure complication: hypoxia and hypercapnia Qualified Code(s): J96.21 - Acute and chronic respiratory failure with hypoxia (9) Smoking Code(s): F17.200 - NICOTINE DEPENDENCE, UNSPECIFIED, UNCOMPLICATED (10) COPD (chronic obstructive pulmonary disease) with acute bronchitis Code(s): J44.0 - CHRONIC OBSTRUCTIVE PULMON DISEASE W ACUTE LOWER RESP INFCT (11) Diabetes Code(s): E11.9 - TYPE 2 DIABETES MELLITUS WITHOUT COMPLICATIONS Qualifiers: Diabetes mellitus type: other specified (including YULISA) Diabetes mellitus complication status: with unspecified complications Diabetes mellitus care home insulin use: with care home use Qualified Code(s): E13.8 - Other specified diabetes mellitus with unspecified complications; Z79.4 - detention (current) use of insulin (12) NSVT (nonsustained ventricular tachycardia) Code(s): I47.2 - VENTRICULAR TACHYCARDIA (13) Obesity Code(s): E66.9 - OBESITY, UNSPECIFIED Assessment/Plan NIPPV Support Noted ABX -> radiographically I suspect more CHF Lasix daily Strict I&O Aspiration precautions BD TX Medrol Follow Renal Function CE ICU monitoring Dr Lubin Critical care time spent in reviewing chart, evaluating patient and formulating plan - 35 minutes.
[2016-11-15] MEDS ORDERED: ALBUTEROL SO4 0.083% IH SOL 2.5 MG/3 ML VIAL.NEB. NEB PRN (14:25)
[2016-11-15] MEDS ORDERED: FLU VACCINE QUAD 60 MCG/0.5 ML (MDV 17-18) IM ONE (15:00)
[2016-11-15] MEDS: methylPREDNISolone NA SUCC 40 MG/1 ML VIAL IVPB SCH (18:51)
[2016-11-15] MEDS ORDERED: ACETAMINOPHEN 325 MG TABLET (FP) PO PRN (19:27)
[2016-11-15] MEDS ORDERED: INSULIN (NOVOLOG) ASPART 100 UNITS/ML 10ML VIAL SQ ONE (19:30)
[2016-11-15] MEDS: INSULIN SLIDING SCALE (NOVOLOG) 1 VIAL SQ SCH (21:22)
[2016-11-15] MEDS ORDERED: ROSUVASTATIN CA 10 MG TABLET (FP) PO SCH (22:00)
[2016-11-15] MEDS: ARFORMOTEROL TARTRATE 15 MCG/2 ML VIAL NEB SCH (22:06)
[2016-11-16] MEDS: methylPREDNISolone NA SUCC 40 MG/1 ML VIAL IVPB SCH ×3 (01:45→17:27)
[2016-11-16] MEDS ORDERED: PT OWN MED DRAWER 7, Y5N ONE ×2 (05:43→09:18)
[2016-11-16 05:57] LABS: MCH 27.7 pg (25.7-33.7); MCHC 32.1 g/dl (32.0-36.0); MEAN CELL VOLUME 86.2 fl (80-96); MEAN PLT VOLUME 10.2 fl (7.5-11.1); PLATELET COUNT 211 K/MM3 (134-434); RDW 18.4 % (11.6-15.6)
[2016-11-16 06:30] LABS: ANION GAP 9 (8-16); CALCIUM 8.5 mg/dL (8.5-10.1); CO2 32 mmol/L (21-32); GLUCOSE,RANDOM 173 mg/dL (74-106); SGOT/AST 12 U/L (15-37); SGPT/ALT 19 U/L (12-78)
[2016-11-16 06:31] LABS: ALK PHOS 57 U/L (45-117); BILIRUBIN,TOTAL 0.8 mg/dL (0.2-1.0); TOT PROT 5.9 g/dl (6.4-8.2)
[2016-11-16] MEDS: INSULIN SLIDING SCALE (NOVOLOG) 1 VIAL SQ SCH ×4 (06:49→21:24)
[2016-11-16] MEDS ORDERED: glyBURIDE 5 MG TABLET (UD) PO SCH (07:00)
[2016-11-16] MEDS ORDERED: INSULIN (NOVOLOG) ASPART 100 UNITS/ML 10ML VIAL ONE ×2 (07:17→21:19)
--- NOTE | 2016-11-16 07:38 | PN ---
Physical Exam: SUBJECTIVE: Patient seen and examined OBJECTIVE: Vital Signs Period Temp Pulse Resp BP Sys/Lam Pulse Ox Last 24 Hr 97.7 F-98.3 F 66-95 22-28 143-162/68-95 92-100 Constitutional: Yes: Awake and alert, Less tachypneic Eyes: Yes: Conjunctiva Clear, EOM Intact HENT: Yes: Atraumatic, Normocephalic Neck: Yes: Supple, Trachea Midline Cardiovascular: Yes: Tachycardia Respiratory: Yes: Bibasilar Rales, Rhonchi, Mild Tachypnea, No Wheezes. No: Stridor Gastrointestinal: Yes: Normal Bowel Sounds, Soft Renal/: Yes: WNL Musculoskeletal: Yes: WNL Extremities: Yes: WNL Edema: Yes Peripheral Pulses WNL: Yes Integumentary: Yes: WNL Neurological: Yes: AAO, non-focal Laboratory Results - last 24 hr 11/15/16 11/15/16 11/15/16 10:00 10:20 10:20 WBC RBC Hgb Hct MCV MCH MCHC RDW Plt Count MPV Puncture Site Right radial ABG pH 7.33 L ABG pCO2 at Pt Temp 51.6 H ABG pO2 at Pt Temp 236.0 H* D ABG HCO3 26.2 H ABG O2 Sat (Measured) 100.0 H* ABG O2 Content 13.4 L ABG Base Excess 0.4 Ivan Test Positive Carboxyhemoglobin 2.7 H Methemoglobin 0.1 L O2 Delivery Device Bipap 10/5 Oxygen Flow Rate 100% Vent Rate 12 Sodium Potassium Chloride Carbon Dioxide Anion Gap BUN Creatinine Creat Clearance w eGFR POC Glucometer Random Glucose Lactic Acid Calcium Total Bilirubin AST ALT Alkaline Phosphatase Total Protein Albumin Urine Color Straw Urine Appearance Clear Urine pH 6.0 Ur Specific [place] 1.015 Urine Protein Negative Urine Glucose (UA) 1+ H D Urine Ketones Negative Urine Blood Negative Urine Nitrite Negative Urine Bilirubin Negative Urine Urobilinogen Negative 11/15/16 11/15/16 11/15/16 13:10 17:22 20:23 WBC RBC Hgb Hct MCV MCH MCHC RDW Plt Count MPV Puncture Site ABG pH ABG pCO2 at Pt Temp ABG pO2 at Pt Temp ABG HCO3 ABG O2 Sat (Measured) ABG O2 Content ABG Base Excess Ivan Test Carboxyhemoglobin Methemoglobin O2 Delivery Device Oxygen Flow Rate Vent Rate Sodium Potassium Chloride Carbon Dioxide Anion Gap BUN Creatinine Creat Clearance w eGFR POC Glucometer > 400 > 400 Random Glucose Lactic Acid 1.1 Calcium Total Bilirubin AST ALT Alkaline Phosphatase Total Protein Albumin Urine Color Urine Appearance Urine pH Ur Specific [place] Urine Protein Urine Glucose (UA) Urine Ketones Urine Blood Urine Nitrite Urine Bilirubin Urine Urobilinogen 11/16/16 11/16/16 11/16/16 05:00 05:00 05:00 WBC 7.0 D RBC 3.27 L Hgb 9.1 L D Hct 28.2 L D MCV 86.2 MCH 27.7 MCHC 32.1 RDW 18.4 H Plt Count 211 D MPV 10.2 Puncture Site ABG pH ABG pCO2 at Pt Temp ABG pO2 at Pt Temp ABG HCO3 ABG O2 Sat (Measured) ABG O2 Content ABG Base Excess Ivan Test Carboxyhemoglobin Methemoglobin O2 Delivery Device Oxygen Flow Rate Vent Rate Sodium 141 Potassium 4.2 Chloride 100 Carbon Dioxide 32 D Anion Gap 9 BUN 27 H Creatinine 1.0 D Creat Clearance w eGFR 52.95 POC Glucometer Random Glucose 173 H D Lactic Acid 0.9 Calcium 8.5 Total Bilirubin 0.8 AST 12 L D ALT 19 D Alkaline Phosphatase 57 Total Protein 5.9 L Albumin 3.0 L Urine Color Urine Appearance Urine pH Ur Specific [place] Urine Protein Urine Glucose (UA) Urine Ketones Urine Blood Urine Nitrite Urine Bilirubin Urine Urobilinogen Active Medications Generic Name Dose Route Start Last Admin Trade Name Freq PRN Reason Stop Dose Admin Acetaminophen 650 mg 11/15/16 19:27 Tylenol - PO Q6H PRN FEVER OR PAIN Albuterol Sulfate 1 amp 11/15/16 14:25 Ventolin 0.083% Nebulizer Soln - NEB Q4H PRN SHORT OF BREATH/WHEEZING Arformoterol Tartrate 1 amp 11/15/16 22:00 11/15/16 22:06 Brovana (Restricted To Pulmonology/Resp) - NEB 1 amp BID FRAN Administration Diltiazem HCl 240 mg 11/16/16 10:00 Cardizem Cd - PO DAILY FRAN Furosemide 40 mg 11/16/16 10:00 Lasix Injection - IVPB DAILY FRNA Glyburide 5 mg 11/16/16 07:00 11/16/16 06:49 Diabeta - PO 5 mg DAILY@0700 FRAN Administration Insulin Aspart 1 vial 11/15/16 22:00 11/16/16 06:49 Novolog Vial Sliding Scale - SQ Not Given ACHS [facility] Protocol Methylprednisolone Sodium Succinate 40 mg 11/15/16 18:00 11/16/16 01:45 Solu-Medrol - IVPB 40 mg Q8H-IV FRAN Administration Rosuvastatin Calcium 10 mg 11/15/16 22:00 11/15/16 21:22 Crestor - PO 10 mg HS FRAN Administration Valsartan 320 mg 11/16/16 10:00 Diovan - PO DAILY FRAN ASSESSMENT/PLAN: Patient is a 81 year old female with a significant past medical history of COPD AND CHF, CAD (S/P STENTING), HTN, Hyperlipidemia, COPD, O2 Dependent, Chronic low back pain, Diabetes Mellitus who was brought by EMS to the ED with complaints of SOB beginning this morning. Patient's daughter reports patient woke up this morning and was having trouble breathing. Patients daugher reports patient usually has trouble breathing initially every morning and begins to get better as the day goes on. Patient's daughter reports patient came to the ED in july for the same SOB problem. Patient's daughter states patient has a leaky valve. As per EMS patient took albuterol x1 by herself this morning. Cardiovascular - CHF exacerbation -F/U Cardiology consult - Lasix 40mg IVPB - Strict I&O - Follow BUN/Cr - Aspiration precautions RESPIRATORY -COPD exacerbation - D/C Medrol DISPO: Cardiac Telemetry monitoring Visit type - Emergency Visit Emergency Visit: No - New Patient This patient is new to me today: No - Critical Care Critical Care patient: Yes Total Critical Care Time (in minutes): 30 Critical Care Statement: The care of this patient involved high complexity decision making to prevent further life threatening deterioration of the patient 's condition and/or to evaluate & treat vital organ system(s) failure or risk of failure.
[2016-11-16] MEDS ORDERED: VALSARTAN 160 MG TABLET (UD) PO SCH (10:00)
[2016-11-16] MEDS ORDERED: FUROSEMIDE 40 MG/4 ML INJECTABLE VIAL IVPB SCH (10:00)
[2016-11-16] MEDS: ARFORMOTEROL TARTRATE 15 MCG/2 ML VIAL NEB SCH (10:45)
--- NOTE | 2016-11-16 12:32 | PN ---
Teaching Attending Note Name of Resident: Robert Mooney ATTENDING PHYSICIAN STATEMENT I saw and evaluated the patient. I reviewed the resident's note and discussed the case with the resident. I agree with the resident's findings and plan as documented. SUBJECTIVE: Patient seen and examined in the ICU. Breathing is better today. Less SOB. No CP. ECHO pending. Intake & Output 11/13/16 11/14/16 11/15/16 11/16/16 23:59 23:59 23:59 23:59 Intake Total 300 240 Output Total 900 300 Balance -600 -60 Weight 156 lb 11.2 oz 155 lb 3.2 oz Last Vital Signs Temp Pulse Resp BP Pulse Ox 98.1 F 84 26 H 147/94 99 11/16/16 10:00 11/16/16 10:09 11/16/16 10:00 11/16/16 10:00 11/16/16 10:09 Active Medications Acetaminophen (Tylenol -) 650 mg PO Q6H PRN PRN Reason: FEVER OR PAIN Albuterol Sulfate (Ventolin 0.083% Nebulizer Soln -) 1 amp NEB Q4H PRN PRN Reason: SHORT OF BREATH/WHEEZING Arformoterol Tartrate (Brovana (Restricted To Pulmonology/Resp) -) 1 amp NEB BID [facility] Last Admin: 11/15/16 22:06 Dose: 1 amp Diltiazem HCl (Cardizem Cd -) 240 mg PO DAILY [facility] Last Admin: 11/16/16 09:40 Dose: 240 mg Furosemide (Lasix Injection -) 40 mg IVPB DAILY [facility] Last Admin: 11/16/16 09:21 Dose: 40 mg Glyburide (Diabeta -) 5 mg PO DAILY@0700 [facility] Last Admin: 11/16/16 06:49 Dose: 5 mg Insulin Aspart (Novolog Vial Sliding Scale -) 1 vial SQ ACHS [facility] PRN Reason: Protocol Last Admin: 11/16/16 12:05 Dose: 12 units Methylprednisolone Sodium Succinate (Solu-Medrol -) 40 mg IVPB Q8H-IV [facility] Last Admin: 11/16/16 09:27 Dose: 40 mg Rosuvastatin Calcium (Crestor -) 10 mg PO HS [facility] Last Admin: 11/15/16 21:22 Dose: 10 mg Valsartan (Diovan -) 320 mg PO DAILY [facility] Last Admin: 11/16/16 09:21 Dose: 320 mg Constitutional: Yes: Awake and alert, Less tachypneic Eyes: Yes: Conjunctiva Clear, EOM Intact HENT: Yes: Atraumatic, Normocephalic Neck: Yes: Supple, Trachea Midline Cardiovascular: Yes: Tachycardia Respiratory: Yes: Bibasilar Rales, Rhonchi, Mild Tachypnea, No Wheezes. No: Stridor Gastrointestinal: Yes: Normal Bowel Sounds, Soft Renal/: Yes: WNL Musculoskeletal: Yes: WNL Extremities: Yes: WNL Edema: Yes Peripheral Pulses WNL: Yes Integumentary: Yes: WNL Neurological: Yes: AAO, non-focal Laboratory Results - last 24 hr 11/15/16 11/15/16 11/15/16 10:00 13:10 17:22 WBC RBC Hgb Hct MCV MCH MCHC RDW Plt Count MPV Sodium Potassium Chloride Carbon Dioxide Anion Gap BUN Creatinine Creat Clearance w eGFR POC Glucometer > 400 Random Glucose Lactic Acid 1.1 Calcium Total Bilirubin AST ALT Alkaline Phosphatase Total Protein Albumin Urine Color Straw Urine Appearance Clear Urine pH 6.0 Ur Specific [place] 1.015 Urine Protein Negative Urine Glucose (UA) 1+ H D Urine Ketones Negative Urine Blood Negative Urine Nitrite Negative Urine Bilirubin Negative Urine Urobilinogen Negative 11/15/16 11/16/16 11/16/16 20:23 05:00 05:00 WBC 7.0 D RBC 3.27 L Hgb 9.1 L D Hct 28.2 L D MCV 86.2 MCH 27.7 MCHC 32.1 RDW 18.4 H Plt Count 211 D MPV 10.2 Sodium 141 Potassium 4.2 Chloride 100 Carbon Dioxide 32 D Anion Gap 9 BUN 27 H Creatinine 1.0 D Creat Clearance w eGFR 52.95 POC Glucometer > 400 Random Glucose 173 H D Lactic Acid Calcium 8.5 Total Bilirubin 0.8 AST 12 L D ALT 19 D Alkaline Phosphatase 57 Total Protein 5.9 L Albumin 3.0 L Urine Color Urine Appearance Urine pH Ur Specific [place] Urine Protein Urine Glucose (UA) Urine Ketones Urine Blood Urine Nitrite Urine Bilirubin Urine Urobilinogen 11/16/16 05:00 WBC RBC Hgb Hct MCV MCH MCHC RDW Plt Count MPV Sodium Potassium Chloride Carbon Dioxide Anion Gap BUN Creatinine Creat Clearance w eGFR POC Glucometer Random Glucose Lactic Acid 0.9 Calcium Total Bilirubin AST ALT Alkaline Phosphatase Total Protein Albumin Urine Color Urine Appearance Urine pH Ur Specific [place] Urine Protein Urine Glucose (UA) Urine Ketones Urine Blood Urine Nitrite Urine Bilirubin Urine Urobilinogen Problem List - Problems (1) CAD S/P percutaneous coronary angioplasty Code(s): I25.10 - ATHSCL HEART DISEASE OF [place] CORONARY ARTERY W/O ANG PCTRS Z98.61 - CORONARY ANGIOPLASTY STATUS (2) CHF (congestive heart failure) Code(s): I50.9 - HEART FAILURE, UNSPECIFIED Qualifiers: Congestive heart failure type: combined Congestive heart failure chronicity: acute on chronic Qualified Code(s): I50.43 - Acute on chronic combined systolic (congestive) and diastolic (congestive) heart failure (3) COPD (chronic obstructive pulmonary disease) Code(s): J44.9 - CHRONIC OBSTRUCTIVE PULMONARY DISEASE, UNSPECIFIED Qualifiers : COPD type: COPD with acute exacerbation Qualified Code(s): J44.1 - Chronic obstructive pulmonary disease with (acute) exacerbation (4) Diabetes mellitus, insulin dependent (IDDM), uncontrolled Code(s): E10.65 - TYPE 1 DIABETES MELLITUS WITH HYPERGLYCEMIA Qualifiers: Diabetes mellitus complication status: with unspecified complications Qualified Code(s): E10.8 - Type 1 diabetes mellitus with unspecified complications; E10.65 - Type 1 diabetes mellitus with hyperglycemia (5) Dyslipidemia Code(s): E78.5 - HYPERLIPIDEMIA, UNSPECIFIED (6) HTN (hypertension) Code(s): I10 - ESSENTIAL (PRIMARY) HYPERTENSION Qualifiers: Hypertension type: essential hypertension Qualified Code(s): I10 - Essential (primary) hypertension (7) Mitral valve regurgitation Code(s): I34.0 - NONRHEUMATIC MITRAL (VALVE) INSUFFICIENCY Qualifiers: Cardiac valve disease etiology: etiology unspecified Qualified Code(s) : I34.0 - Nonrheumatic mitral (valve) insufficiency (8) Respiratory failure Code(s): J96.90 - RESPIRATORY FAILURE, UNSP, UNSP W HYPOXIA OR HYPERCAPNIA Qualifiers: Chronicity: acute on chronic Respiratory failure complication: hypoxia and hypercapnia Qualified Code(s): J96.21 - Acute and chronic respiratory failure with hypoxia (9) Smoking Code(s): F17.200 - NICOTINE DEPENDENCE, UNSPECIFIED, UNCOMPLICATED (10) COPD (chronic obstructive pulmonary disease) with acute bronchitis Code(s): J44.0 - CHRONIC OBSTRUCTIVE PULMON DISEASE W ACUTE LOWER RESP INFCT (11) Diabetes Code(s): E11.9 - TYPE 2 DIABETES MELLITUS WITHOUT COMPLICATIONS Qualifiers: Diabetes mellitus type: other specified (including YULISA) Diabetes mellitus complication status: with unspecified complications Diabetes mellitus long-term insulin use: with long-term use Qualified Code(s): E13.8 - Other specified diabetes mellitus with unspecified complications; Z79.4 - terminal operator (current) use of insulin (12) NSVT (nonsustained ventricular tachycardia) Code(s): I47.2 - VENTRICULAR TACHYCARDIA (13) Obesity Code(s): E66.9 - OBESITY, UNSPECIFIED Assessment/Plan Lasix Strict I&O Aspiration precautions BD TX D/C Medrol Follow Renal Function D/C Steroids Cardiac Telemetry monitoring Dr Lubin Critical care time spent in reviewing chart, evaluating patient and formulating plan - 35 minutes. Problem List - Problems (1) CAD S/P percutaneous coronary angioplasty Code(s): I25.10 - ATHSCL HEART DISEASE OF [place] CORONARY ARTERY W/O ANG PCTRS Z98.61 - CORONARY ANGIOPLASTY STATUS (2) CHF (congestive heart failure) Code(s): I50.9 - HEART FAILURE, UNSPECIFIED Qualifiers: Congestive heart failure type: combined Congestive heart failure chronicity: acute on chronic Qualified Code(s): I50.43 - Acute on chronic combined systolic (congestive) and diastolic (congestive) heart failure (3) COPD (chronic obstructive pulmonary disease) Code(s): J44.9 - CHRONIC OBSTRUCTIVE PULMONARY DISEASE, UNSPECIFIED Qualifiers : COPD type: COPD with acute exacerbation Qualified Code(s): J44.1 - Chronic obstructive pulmonary disease with (acute) exacerbation (4) Diabetes mellitus, insulin dependent (IDDM), uncontrolled Code(s): E10.65 - TYPE 1 DIABETES MELLITUS WITH HYPERGLYCEMIA Qualifiers: Diabetes mellitus complication status: with unspecified complications Qualified Code(s): E10.8 - Type 1 diabetes mellitus with unspecified complications; E10.65 - Type 1 diabetes mellitus with hyperglycemia (5) Dyslipidemia Code(s): E78.5 - HYPERLIPIDEMIA, UNSPECIFIED (6) HTN (hypertension) Code(s): I10 - ESSENTIAL (PRIMARY) HYPERTENSION Qualifiers: Hypertension type: essential hypertension Qualified Code(s): I10 - Essential (primary) hypertension (7) Mitral valve regurgitation Code(s): I34.0 - NONRHEUMATIC MITRAL (VALVE) INSUFFICIENCY Qualifiers: Cardiac valve disease etiology: etiology unspecified Qualified Code(s) : I34.0 - Nonrheumatic mitral (valve) insufficiency (8) Respiratory failure Code(s): J96.90 - RESPIRATORY FAILURE, UNSP, UNSP W HYPOXIA OR HYPERCAPNIA Qualifiers: Chronicity: acute on chronic Respiratory failure complication: hypoxia and hypercapnia Qualified Code(s): J96.21 - Acute and chronic respiratory failure with hypoxia (9) Smoking Code(s): F17.200 - NICOTINE DEPENDENCE, UNSPECIFIED, UNCOMPLICATED (10) COPD (chronic obstructive pulmonary disease) with acute bronchitis Code(s): J44.0 - CHRONIC OBSTRUCTIVE PULMON DISEASE W ACUTE LOWER RESP INFCT (11) Diabetes Code(s): E11.9 - TYPE 2 DIABETES MELLITUS WITHOUT COMPLICATIONS Qualifiers: Diabetes mellitus type: other specified (including YULISA) Diabetes mellitus complication status: with unspecified complications Diabetes mellitus long-term insulin use: with long-term use Qualified Code(s): E13.8 - Other specified diabetes mellitus with unspecified complications; Z79.4 - terminal operator (current) use of insulin (12) NSVT (nonsustained ventricular tachycardia) Code(s): I47.2 - VENTRICULAR TACHYCARDIA (13) Obesity Code(s): E66.9 - OBESITY, UNSPECIFIED
--- NOTE | 2016-11-16 13:59 | EKG ---
Test Reason : Blood Pressure : / mmHG Vent. Rate : 083 BPM Atrial Rate : 055 BPM P-R Int : 000 ms QRS Dur : 116 ms QT Int : 408 ms P-R-T Axes : 000 044 146 degrees QTc Int : 479 ms ATRIAL FIBRILLATION WITH PREMATURE VENTRICULAR OR ABERRANTLY CONDUCTED COMPLEXES ANTERIOR INFARCT (CITED ON OR BEFORE 30-AUG-2016) POOR R WAVE PROGRESSION ABNORMAL ECG WHEN COMPARED WITH ECG OF 31-AUG-2016 09:22, ATRIAL FIBRILLATION HAS REPLACED SINUS RHYTHM T WAVE VARIATION Confirmed by OSIRIS ANDRADE MD ([id number]) on 11/16/2016 1:59:19 PM Referred By: Confirmed By:OSIRIS ANDRADE MD
--- NOTE | 2016-11-16 14:02 | CON.CARD ---
Consult Consult Specialty:: cardiology Referred by:: Yvonne Reason for Consultation:: Shortness of breath - History of Present Illness Chief Complaint: Shortness of breath History of Present Illness: The patient is an 81-year-old female, with a history of diabetes, hypertension, hyperlipidemia, chronic kidney disease, stroke in the remote past, coronary artery disease and prior stent, atrial fibrillation on anticoagulation,HFpEF, severe mitral valve regurgitation, admitted with shortness of breath with acute on chronic diastolic heart failure. The patient is responding to diuretics. She is clinically better. Denies chest pains. Reports dyspnea on minimal leftward. - History Source History Provided By: Patient, Medical Record Limitations to Obtaining History: No Limitations - Past Medical History Cardio/Vascular: Yes: AFIB, CAD (S/P STENTING), CHF, HTN, Hyperlipdemia Pulmonary: Yes: COPD, O2 Dependent Musculoskeletal: Yes: Chronic low back pain Endocrine: Yes: Diabetes Mellitus - Alcohol/Substance Use Hx Alcohol Use: No - Smoking History Smoking history: Former smoker Have you smoked in the past 12 months: No Aproximately how many cigarettes per day: 5 If you are a former smoker, when did you quit?: 3-4 years ago Home Medications - Allergies Allergies/Adverse Reactions: Allergies Allergy/AdvReac Type Severity Reaction Status Date / Time No Known Allergies Allergy Verified 11/15/16 09:41 - Home Medications Home Medications: Ambulatory Orders Cholecalciferol (Vitamin D3) [Vitamin D3] 50,000 unit PO WEEKLY 11/15/16 Diltiazem Cd [Cardizem Cd -] 240 mg PO DAILY 11/15/16 Furosemide 20 mg PO DAILY 11/15/16 Glyburide 5 mg PO BID 11/15/16 Metformin HCl 500 mg PO BID 11/15/16 Rosuvastatin [Crestor -] 20 mg PO DAILY 11/15/16 Valsartan 320 mg PO DAILY 11/15/16 Review of Systems - Review of Systems Constitutional: reports: No Symptoms Eyes: reports: No Symptoms HENT: reports: No Symptoms Neck: reports: No Symptoms Cardiovascular: reports: Shortness of Breath Respiratory: reports: SOB Gastrointestinal: reports: No Symptoms Genitourinary: reports: No Symptoms Breasts: reports: No Symptoms Reported Musculoskeletal: reports: No Symptoms Integumentary: reports: No Symptoms Neurological: reports: No Symptoms Endocrine: reports: No Symptoms Vital Signs: Vital Signs Temperature 98.1 F 11/16/16 10:00 Pulse Rate 86 11/16/16 12:00 Respiratory Rate 21 11/16/16 12:00 Blood Pressure 152/66 11/16/16 12:00 O2 Sat by Pulse Oximetry (%) 99 11/16/16 10:09 Constitutional: Yes: Well Nourished, No Distress, Calm Eyes: Yes: WNL HENT: Yes: WNL Neck: Yes: Supple Respiratory: Yes: Regular, Rales, SOB Gastrointestinal: Yes: WNL Renal/: Yes: WNL Cardiovascular: Yes: Pulse Irregular Heart Sounds: Yes: S1, S2 Murmur: Yes: Systolic Murmur, Grade 2 Musculoskeletal: Yes: WNL Extremities: Yes: WNL Edema: No Peripheral Pulses WNL: Yes Integumentary: Yes: WNL ...Motor Strength: WNL Psychiatric: Yes: WNL - Other Data Labs, Other Data: CBC, BMP 11/16/16 05:00 11/16/16 05:00 INR, PTT INR 1.11 (0.82-1.09) 11/15/16 09:45 Assessment/Plan 81-year-old female with multiple medical problems, admitted with shortness of breath. Acute on chronic diastolic heart failure in the setting of severe mitral valve regurgitation. Cardiac catheterization 09/04/2016 revealed a patent stent. The patient has no chest pains. Continue intravenous Lasix as currently. Low sodium diet with fluid restriction. Continue the other medications as currently. Once the patient is stable, and CHF is resolved, would consider an evaluation for mitral valve surgery. Ventricular rates are reasonably well controlled in atrial fibrillation. There is no need for further cardiac workup at this point. The patient is clinically better. Would like to see as outpatient, to discuss mitral valve surgery. (Possibly clipping) Please do not hesitate to call us PRN.
--- NOTE | 2016-11-16 16:24 | PN ---
Progress Note, Physician Chief Complaint: SOB,CHF History of Present Illness: Feels better, less SOB, no bipap in use at this time, in bed - Current Medication List Current Medications: Active Medications Acetaminophen (Tylenol -) 650 mg PO Q6H PRN PRN Reason: FEVER OR PAIN Albuterol Sulfate (Ventolin 0.083% Nebulizer Soln -) 1 amp NEB Q4H PRN PRN Reason: SHORT OF BREATH/WHEEZING Arformoterol Tartrate (Brovana (Restricted To Pulmonology/Resp) -) 1 amp NEB BID [facility] Last Admin: 11/16/16 10:45 Dose: 1 amp Diltiazem HCl (Cardizem Cd -) 240 mg PO DAILY [facility] Last Admin: 11/16/16 09:40 Dose: 240 mg Furosemide (Lasix Injection -) 40 mg IVPB DAILY [facility] Last Admin: 11/16/16 09:21 Dose: 40 mg Glyburide (Diabeta -) 5 mg PO DAILY@0700 [facility] Last Admin: 11/16/16 06:49 Dose: 5 mg Insulin Aspart (Novolog Vial Sliding Scale -) 1 vial SQ ACHS [facility] PRN Reason: Protocol Last Admin: 11/16/16 12:05 Dose: 12 units Methylprednisolone Sodium Succinate (Solu-Medrol -) 40 mg IVPB Q8H-IV [facility] Last Admin: 11/16/16 09:27 Dose: 40 mg Rosuvastatin Calcium (Crestor -) 10 mg PO HS [facility] Last Admin: 11/15/16 21:22 Dose: 10 mg Valsartan (Diovan -) 320 mg PO DAILY [facility] Last Admin: 11/16/16 09:21 Dose: 320 mg - Objective Vital Signs: Vital Signs Temperature 98.0 F 11/16/16 14:00 Pulse Rate 63 11/16/16 14:00 Respiratory Rate 25 H 11/16/16 14:00 Blood Pressure 142/65 11/16/16 14:00 O2 Sat by Pulse Oximetry (%) 99 11/16/16 10:09 Constitutional: Yes: Well Nourished, No Distress, Calm Cardiovascular: Yes: Regular Rate and Rhythm, Murmur (grade IV/) Respiratory: Yes: Regular Gastrointestinal: Yes: Normal Bowel Sounds Extremities: Yes: WNL Edema: Yes Peripheral Pulses WNL: Yes Neurological: Yes: Alert, Oriented Psychiatric: Yes: Alert, Oriented Labs: CBC, BMP 11/16/16 05:00 11/16/16 05:00 INR, PTT INR 1.11 (0.82-1.09) 11/15/16 09:45 Problem List - Problems (1) CHF (congestive heart failure) Code(s): I50.9 - HEART FAILURE, UNSPECIFIED Qualifiers: Congestive heart failure type: combined Congestive heart failure chronicity: acute on chronic Qualified Code(s): I50.43 - Acute on chronic combined systolic (congestive) and diastolic (congestive) heart failure (2) COPD (chronic obstructive pulmonary disease) Code(s): J44.9 - CHRONIC OBSTRUCTIVE PULMONARY DISEASE, UNSPECIFIED Qualifiers : COPD type: COPD with acute exacerbation Qualified Code(s): J44.1 - Chronic obstructive pulmonary disease with (acute) exacerbation (3) HTN (hypertension) Code(s): I10 - ESSENTIAL (PRIMARY) HYPERTENSION Qualifiers: Hypertension type: essential hypertension Qualified Code(s): I10 - Essential (primary) hypertension (4) Mitral valve regurgitation Code(s): I34.0 - NONRHEUMATIC MITRAL (VALVE) INSUFFICIENCY Qualifiers: Cardiac valve disease etiology: etiology unspecified Qualified Code(s) : I34.0 - Nonrheumatic mitral (valve) insufficiency Assessment/Plan -Seen by Pulmonary, Cardiology -IV diuretics -dietary compliance maybe an issue, doesn't cook a lot, eats out most of the time. -maintin garcia catheter for I/O's -transfer to telemetry -f/u with cardiology outpatient -titrate IV steroids -neb txs -Bipap as needed
[2016-11-16] MEDS ORDERED: DOCUSATE NA 100 MG/10 ML UNIT-DOSE CUPS PO ONE (18:33)
[2016-11-16] MEDS ORDERED: ALBUTEROL SO4 0.083% IH SOL 2.5 MG/3 ML VIAL.NEB. NEB PRN (19:03)
[2016-11-16] MEDS ORDERED: ACETAMINOPHEN 325 MG TABLET (FP) PO PRN (19:03)
[2016-11-16] MEDS: ROSUVASTATIN CA 10 MG TABLET (FP) PO SCH (21:24)
[2016-11-16] MEDS ORDERED: ARFORMOTEROL TARTRATE 15 MCG/2 ML VIAL NEB SCH (22:00)
[2016-11-17] MEDS ORDERED: methylPREDNISolone NA SUCC 40 MG/1 ML VIAL IVPB SCH (02:00)
[2016-11-17] MEDS: INSULIN SLIDING SCALE (NOVOLOG) 1 VIAL SQ SCH ×4 (06:10→21:19)
[2016-11-17] MEDS ORDERED: glyBURIDE 5 MG TABLET (UD) PO SCH (07:00)
[2016-11-17 07:55] LABS: MCH 27.1 pg (25.7-33.7); MCHC 31.6 g/dl (32.0-36.0); MEAN CELL VOLUME 85.8 fl (80-96); PLATELET COUNT 248 K/MM3 (134-434); RDW 18.4 % (11.6-15.6); WHITE BLOOD COUNT 11.9 K/mm3 (4.0-10.0)
[2016-11-17 08:11] LABS: ANION GAP 9 (8-16); CALCIUM 8.5 mg/dL (8.5-10.1); CO2 33 mmol/L (21-32); CREATININE 1.2 mg/dL (0.55-1.02); GLUCOSE,RANDOM 247 mg/dL (74-106)
--- NOTE | 2016-11-17 09:00 | PN ---
Progress Note, Physician History of Present Illness: FEELS BETTER ON NC NO CP - Current Medication List Current Medications: Active Medications Acetaminophen (Tylenol -) 650 mg PO Q6H PRN PRN Reason: FEVER OR PAIN Albuterol Sulfate (Ventolin 0.083% Nebulizer Soln -) 1 amp NEB Q4H PRN PRN Reason: SHORT OF BREATH/WHEEZING Diltiazem HCl (Cardizem Cd -) 240 mg PO DAILY [facility] Furosemide (Lasix Injection -) 40 mg IVPB DAILY [facility] Glyburide (Diabeta -) 5 mg PO DAILY@0700 [facility] Last Admin: 11/17/16 06:10 Dose: 5 mg Insulin Aspart (Novolog Vial Sliding Scale -) 1 vial SQ ACHS [facility] PRN Reason: Protocol Last Admin: 11/17/16 06:10 Dose: 4 units Rosuvastatin Calcium (Crestor -) 10 mg PO HS [facility] Last Admin: 11/16/16 21:24 Dose: 10 mg Valsartan (Diovan -) 320 mg PO DAILY [facility] - Objective Vital Signs: Vital Signs Temperature 97.9 F 11/17/16 06:33 Pulse Rate 80 11/17/16 06:33 Respiratory Rate 19 11/17/16 06:33 Blood Pressure 121/65 11/17/16 06:33 O2 Sat by Pulse Oximetry (%) 100 11/17/16 06:33 Neck: Yes: Supple Cardiovascular: Yes: Murmur, S1, S2 Respiratory: Yes: Rales (AT THE BASES), SOB on Exertion. No: Wheezes Gastrointestinal: Yes: Normal Bowel Sounds, Soft Edema: LLE: Trace, RLE: Trace Labs: CBC, BMP 11/17/16 05:35 11/17/16 05:35 INR, PTT INR 1.11 (0.82-1.09) 11/15/16 09:45 Problem List - Problems (1) COPD (chronic obstructive pulmonary disease) Assessment/Plan: IV STEROIDS--TAPER NEBS O2 PT Code(s): J44.9 - CHRONIC OBSTRUCTIVE PULMONARY DISEASE, UNSPECIFIED Qualifiers : COPD type: COPD with acute exacerbation Qualified Code(s): J44.1 - Chronic obstructive pulmonary disease with (acute) exacerbation (2) CHF (congestive heart failure) Assessment/Plan: IV LASIX LOW SALT DIET COMPLIANCE DISCUSSED ON ARB Code(s): I50.9 - HEART FAILURE, UNSPECIFIED Qualifiers: Congestive heart failure type: combined Congestive heart failure chronicity: acute on chronic Qualified Code(s): I50.43 - Acute on chronic combined systolic (congestive) and diastolic (congestive) heart failure (3) CAD S/P percutaneous coronary angioplasty Assessment/Plan: ON STATIN AND ASA Code(s): I25.10 - ATHSCL HEART DISEASE OF [place] CORONARY ARTERY W/O ANG PCTRS Z98.61 - CORONARY ANGIOPLASTY STATUS (4) Diabetes mellitus, insulin dependent (IDDM), uncontrolled Assessment/Plan: BGM Code(s): E10.65 - TYPE 1 DIABETES MELLITUS WITH HYPERGLYCEMIA Qualifiers: Diabetes mellitus complication status: with unspecified complications Qualified Code(s): E10.8 - Type 1 diabetes mellitus with unspecified complications; E10.65 - Type 1 diabetes mellitus with hyperglycemia (5) Mitral valve regurgitation Code(s): I34.0 - NONRHEUMATIC MITRAL (VALVE) INSUFFICIENCY Qualifiers: Cardiac valve disease etiology: etiology unspecified Qualified Code(s) : I34.0 - Nonrheumatic mitral (valve) insufficiency
[2016-11-17] MEDS: VALSARTAN 160 MG TABLET (UD) PO SCH (09:04)
[2016-11-17] MEDS: FUROSEMIDE 40 MG/4 ML INJECTABLE VIAL IVPB SCH (09:05)
[2016-11-17] MEDS: methylPREDNISolone NA SUCC 40 MG/1 ML VIAL IVPB SCH ×2 (09:05→21:20)
--- NOTE | 2016-11-17 11:16 | PN ---
Progress Note, Physician History of Present Illness: PULMONARY ALERT,FEELING BETTER,LESS DYSPNEIC - Current Medication List Current Medications: Active Medications Acetaminophen (Tylenol -) 650 mg PO Q6H PRN PRN Reason: FEVER OR PAIN Albuterol Sulfate (Ventolin 0.083% Nebulizer Soln -) 1 amp NEB Q4H PRN PRN Reason: SHORT OF BREATH/WHEEZING Albuterol/Ipratropium (Duoneb -) 1 amp NEB QIDR [facility] Aspirin (Ecotrin -) 81 mg PO DAILY [facility] Diltiazem HCl (Cardizem Cd -) 240 mg PO DAILY [facility] Last Admin: 11/17/16 09:04 Dose: 240 mg Furosemide (Lasix Injection -) 40 mg IVPB DAILY [facility] Last Admin: 11/17/16 09:05 Dose: 40 mg Glyburide (Diabeta -) 5 mg PO BIDAC [facility] Insulin Aspart (Novolog Vial Sliding Scale -) 1 vial SQ ACHS [facility] PRN Reason: Protocol Last Admin: 11/17/16 06:10 Dose: 4 units Methylprednisolone Sodium Succinate (Solu-Medrol -) 40 mg IVPB BID [facility] Last Admin: 11/17/16 09:05 Dose: 40 mg Rosuvastatin Calcium (Crestor -) 10 mg PO HS [facility] Last Admin: 11/16/16 21:24 Dose: 10 mg Valsartan (Diovan -) 320 mg PO DAILY [facility] Last Admin: 11/17/16 09:04 Dose: 320 mg - Objective Vital Signs: Vital Signs Temperature 98 F 11/17/16 10:00 Pulse Rate 74 11/17/16 10:49 Respiratory Rate 20 11/17/16 10:00 Blood Pressure 136/67 11/17/16 10:00 O2 Sat by Pulse Oximetry (%) 96 11/17/16 10:49 Constitutional: Yes: Well Nourished, Calm Eyes: Yes: WNL HENT: Yes: WNL Neck: Yes: WNL Cardiovascular: Yes: Pulse Irregular, S1, S2 Respiratory: Yes: Rales (BILATERAL RALES 1/3 UP) Gastrointestinal: Yes: Normal Bowel Sounds, Soft Extremities: Yes: WNL Edema: Yes Labs: CBC, BMP 11/17/16 05:35 11/17/16 05:35 INR, PTT INR 1.11 (0.82-1.09) 11/15/16 09:45 Assessment/Plan Problem List - Problems (1) CAD S/P percutaneous coronary angioplasty Code(s): I25.10 - ATHSCL HEART DISEASE OF [place] CORONARY ARTERY W/O ANG PCTRS Z98.61 - CORONARY ANGIOPLASTY STATUS (2) CHF (congestive heart failure) Code(s): I50.9 - HEART FAILURE, UNSPECIFIED Qualifiers: Congestive heart failure type: combined Congestive heart failure chronicity: acute on chronic Qualified Code(s): I50.43 - Acute on chronic combined systolic (congestive) and diastolic (congestive) heart failure (3) COPD (chronic obstructive pulmonary disease) Code(s): J44.9 - CHRONIC OBSTRUCTIVE PULMONARY DISEASE, UNSPECIFIED Qualifiers : COPD type: COPD with acute exacerbation Qualified Code(s): J44.1 - Chronic obstructive pulmonary disease with (acute) exacerbation (4) Diabetes mellitus, insulin dependent (IDDM), uncontrolled Code(s): E10.65 - TYPE 1 DIABETES MELLITUS WITH HYPERGLYCEMIA Qualifiers: Diabetes mellitus complication status: with unspecified complications Qualified Code(s): E10.8 - Type 1 diabetes mellitus with unspecified complications; E10.65 - Type 1 diabetes mellitus with hyperglycemia (5) Dyslipidemia Code(s): E78.5 - HYPERLIPIDEMIA, UNSPECIFIED (6) HTN (hypertension) Code(s): I10 - ESSENTIAL (PRIMARY) HYPERTENSION Qualifiers: Hypertension type: essential hypertension Qualified Code(s): I10 - Essential (primary) hypertension (7) Mitral valve regurgitation Code(s): I34.0 - NONRHEUMATIC MITRAL (VALVE) INSUFFICIENCY Qualifiers: Cardiac valve disease etiology: etiology unspecified Qualified Code(s) : I34.0 - Nonrheumatic mitral (valve) insufficiency (8) Respiratory failure Code(s): J96.90 - RESPIRATORY FAILURE, UNSP, UNSP W HYPOXIA OR HYPERCAPNIA Qualifiers: Chronicity: acute on chronic Respiratory failure complication: hypoxia and hypercapnia Qualified Code(s): J96.21 - Acute and chronic respiratory failure with hypoxia (9) Smoking Code(s): F17.200 - NICOTINE DEPENDENCE, UNSPECIFIED, UNCOMPLICATED (10) COPD (chronic obstructive pulmonary disease) with acute bronchitis Code(s): J44.0 - CHRONIC OBSTRUCTIVE PULMON DISEASE W ACUTE LOWER RESP INFCT (11) Diabetes Code(s): E11.9 - TYPE 2 DIABETES MELLITUS WITHOUT COMPLICATIONS Qualifiers: Diabetes mellitus type: other specified (including YULISA) Diabetes mellitus complication status: with unspecified complications Diabetes mellitus medical terminologist insulin use: with fdc use Qualified Code(s): E13.8 - Other specified diabetes mellitus with unspecified complications; Z79.4 - jail (current) use of insulin (12) NSVT (nonsustained ventricular tachycardia) Code(s): I47.2 - VENTRICULAR TACHYCARDIA (13) Obesity Code(s): E66.9 - OBESITY, UNSPECIFIED Assessment/Plan Lasix Strict I&O BD TX Follow Renal Function DR LORA
[2016-11-17] MEDS: ALBUTEROL SO4 2.5/IPRATROPIUM 0.5 INH SOL 3 ML VIAL.NEB. NEB SCH ×2 (11:35→18:28)
[2016-11-17] MEDS: ASPIRIN COATED 81 MG TABLET.EC PO SCH (11:57)
[2016-11-17] MEDS ORDERED: INSULIN (NOVOLOG) ASPART 100 UNITS/ML 10ML VIAL ONE ×2 (11:59→21:13)
--- NOTE | 2016-11-17 13:49 | PN ---
Progress Note, Physician Chief Complaint: Shortness of breath History of Present Illness: Marked improvement this afternoon. The patient denies chest pains and shortness of breath. - Current Medication List Current Medications: Active Medications Acetaminophen (Tylenol -) 650 mg PO Q6H PRN PRN Reason: FEVER OR PAIN Albuterol Sulfate (Ventolin 0.083% Nebulizer Soln -) 1 amp NEB Q4H PRN PRN Reason: SHORT OF BREATH/WHEEZING Albuterol/Ipratropium (Duoneb -) 1 amp NEB QIDR [facility] Last Admin: 11/17/16 11:35 Dose: 1 amp Aspirin (Ecotrin -) 81 mg PO DAILY [facility] Last Admin: 11/17/16 11:57 Dose: 81 mg Diltiazem HCl (Cardizem Cd -) 240 mg PO DAILY [facility] Last Admin: 11/17/16 09:04 Dose: 240 mg Furosemide (Lasix Injection -) 40 mg IVPB DAILY [facility] Last Admin: 11/17/16 09:05 Dose: 40 mg Glyburide (Diabeta -) 5 mg PO BIDAC [facility] Insulin Aspart (Novolog Vial Sliding Scale -) 1 vial SQ ACHS [facility] PRN Reason: Protocol Last Admin: 11/17/16 12:02 Dose: 6 units Methylprednisolone Sodium Succinate (Solu-Medrol -) 40 mg IVPB BID [facility] Last Admin: 11/17/16 09:05 Dose: 40 mg Rosuvastatin Calcium (Crestor -) 10 mg PO HS [facility] Last Admin: 11/16/16 21:24 Dose: 10 mg Valsartan (Diovan -) 320 mg PO DAILY [facility] Last Admin: 11/17/16 09:04 Dose: 320 mg - Objective Vital Signs: Vital Signs Temperature 98 F 11/17/16 10:00 Pulse Rate 74 11/17/16 10:49 Respiratory Rate 20 11/17/16 10:00 Blood Pressure 136/67 11/17/16 10:00 O2 Sat by Pulse Oximetry (%) 96 11/17/16 10:49 Constitutional: Yes: Well Nourished, No Distress, Calm Eyes: Yes: WNL HENT: Yes: WNL, Atraumatic, Normocephalic Neck: Yes: WNL, Supple Cardiovascular: Yes: Regular Rate and Rhythm, S1, S2 Respiratory: Yes: WNL, Regular, CTA Bilaterally Gastrointestinal: Yes: WNL ...Rectal Exam: Yes: Deferred Musculoskeletal: Yes: WNL Extremities: Yes: WNL Edema: No Peripheral Pulses WNL: Yes Labs: CBC, BMP 11/17/16 05:35 11/17/16 05:35 INR, PTT INR 1.11 (0.82-1.09) 11/15/16 09:45 Assessment/Plan The patient is symptomatically and clinically better. Responding to treatment. Continue present care. Fluid and sodium restrictions. Please arrange for an outpatient evaluation with , for consideration of mitral valve replacement/repair or clipping. Please do not hesitate to call us PRN.
[2016-11-17] MEDS: glyBURIDE 5 MG TABLET (UD) PO SCH (16:56)
[2016-11-17] MEDS: ROSUVASTATIN CA 10 MG TABLET (FP) PO SCH (21:19)
[2016-11-18] MEDS: INSULIN SLIDING SCALE (NOVOLOG) 1 VIAL SQ SCH ×4 (06:04→21:54)
[2016-11-18] MEDS: ALBUTEROL SO4 2.5/IPRATROPIUM 0.5 INH SOL 3 ML VIAL.NEB. NEB SCH ×4 (06:10→18:30)
[2016-11-18] MEDS: glyBURIDE 5 MG TABLET (UD) PO SCH ×2 (06:37→17:09)
[2016-11-18] MEDS ORDERED: INSULIN DETEMIR 100 UNITS/ML MDV SQ ONE (08:08)
--- NOTE | 2016-11-18 08:10 | PN ---
Progress Note, Physician History of Present Illness: FEELS BETTER ON NC NO CP - Current Medication List Current Medications: Active Medications Acetaminophen (Tylenol -) 650 mg PO Q6H PRN PRN Reason: FEVER OR PAIN Albuterol Sulfate (Ventolin 0.083% Nebulizer Soln -) 1 amp NEB Q4H PRN PRN Reason: SHORT OF BREATH/WHEEZING Albuterol/Ipratropium (Duoneb -) 1 amp NEB QIDR [facility] Last Admin: 11/18/16 06:10 Dose: 1 amp Aspirin (Ecotrin -) 81 mg PO DAILY [facility] Last Admin: 11/17/16 11:57 Dose: 81 mg Diltiazem HCl (Cardizem Cd -) 240 mg PO DAILY [facility] Last Admin: 11/17/16 09:04 Dose: 240 mg Furosemide (Lasix Injection -) 40 mg IVPB DAILY [facility] Last Admin: 11/17/16 09:05 Dose: 40 mg Glyburide (Diabeta -) 5 mg PO BIDAC [facility] Last Admin: 11/18/16 06:37 Dose: 5 mg Insulin Aspart (Novolog Vial Sliding Scale -) 1 vial SQ ACHS [facility] PRN Reason: Protocol Last Admin: 11/18/16 06:04 Dose: 6 units Rosuvastatin Calcium (Crestor -) 10 mg PO HS [facility] Last Admin: 11/17/16 21:19 Dose: 10 mg Valsartan (Diovan -) 320 mg PO DAILY [facility] Last Admin: 11/17/16 09:04 Dose: 320 mg - Objective Vital Signs: Vital Signs Temperature 97.8 F 11/18/16 06:00 Pulse Rate 77 11/18/16 06:00 Respiratory Rate 20 11/18/16 06:00 Blood Pressure 135/77 11/18/16 06:00 O2 Sat by Pulse Oximetry (%) 95 11/18/16 06:00 Cardiovascular: Yes: Murmur, S1, S2 Respiratory: Yes: Diminished, On Nasal O2 Gastrointestinal: Yes: Normal Bowel Sounds, Soft Labs: CBC, BMP 11/17/16 05:35 11/17/16 05:35 INR, PTT INR 1.11 (0.82-1.09) 11/15/16 09:45 Problem List - Problems (1) COPD (chronic obstructive pulmonary disease) Assessment/Plan: IV STEROIDS--TAPER--TO PO NEBS O2 PT Code(s): J44.9 - CHRONIC OBSTRUCTIVE PULMONARY DISEASE, UNSPECIFIED Qualifiers : COPD type: COPD with acute exacerbation Qualified Code(s): J44.1 - Chronic obstructive pulmonary disease with (acute) exacerbation (2) CHF (congestive heart failure) Assessment/Plan: IV LASIX LOW SALT DIET COMPLIANCE DISCUSSED ON ARB Code(s): I50.9 - HEART FAILURE, UNSPECIFIED Qualifiers: Congestive heart failure type: combined Congestive heart failure chronicity: acute on chronic Qualified Code(s): I50.43 - Acute on chronic combined systolic (congestive) and diastolic (congestive) heart failure (3) CAD S/P percutaneous coronary angioplasty Assessment/Plan: ON STATIN AND ASA Code(s): I25.10 - ATHSCL HEART DISEASE OF [place] CORONARY ARTERY W/O ANG PCTRS Z98.61 - CORONARY ANGIOPLASTY STATUS (4) Diabetes mellitus, insulin dependent (IDDM), uncontrolled Assessment/Plan: BGM ADD LEVEMIR Code(s): E10.65 - TYPE 1 DIABETES MELLITUS WITH HYPERGLYCEMIA Qualifiers: Diabetes mellitus complication status: with unspecified complications Qualified Code(s): E10.8 - Type 1 diabetes mellitus with unspecified complications; E10.65 - Type 1 diabetes mellitus with hyperglycemia (5) Mitral valve regurgitation Assessment/Plan: CARDIO NOTED T/S CONSULT OUTPATIENT Code(s): I34.0 - NONRHEUMATIC MITRAL (VALVE) INSUFFICIENCY Qualifiers: Cardiac valve disease etiology: etiology unspecified Qualified Code(s) : I34.0 - Nonrheumatic mitral (valve) insufficiency
[2016-11-18] MEDS: predniSONE 20 MG TABLET (UD) PO SCH (09:11)
[2016-11-18] MEDS: VALSARTAN 160 MG TABLET (UD) PO SCH (09:11)
[2016-11-18] MEDS: FUROSEMIDE 40 MG/4 ML INJECTABLE VIAL IVPB SCH (09:12)
[2016-11-18] MEDS: ASPIRIN COATED 81 MG TABLET.EC PO SCH (09:12)
--- NOTE | 2016-11-18 12:28 | PN ---
Progress Note, Physician History of Present Illness: PULMONARY ALERT,,OOB-CHAIR,-SOB,-CP - Current Medication List Current Medications: Active Medications Acetaminophen (Tylenol -) 650 mg PO Q6H PRN PRN Reason: FEVER OR PAIN Albuterol Sulfate (Ventolin 0.083% Nebulizer Soln -) 1 amp NEB Q4H PRN PRN Reason: SHORT OF BREATH/WHEEZING Albuterol/Ipratropium (Duoneb -) 1 amp NEB QIDR [facility] Last Admin: 11/18/16 06:10 Dose: 1 amp Aspirin (Ecotrin -) 81 mg PO DAILY [facility] Last Admin: 11/18/16 09:12 Dose: 81 mg Diltiazem HCl (Cardizem Cd -) 240 mg PO DAILY [facility] Last Admin: 11/18/16 09:11 Dose: 240 mg Furosemide (Lasix Injection -) 40 mg IVPB DAILY [facility] Last Admin: 11/18/16 09:12 Dose: 40 mg Glyburide (Diabeta -) 5 mg PO BIDAC [facility] Last Admin: 11/18/16 06:37 Dose: 5 mg Insulin Aspart (Novolog Vial Sliding Scale -) 1 vial SQ [facility] PRN Reason: Protocol Last Admin: 11/18/16 11:34 Dose: 10 units Insulin Detemir (Levemir Vial) 15 units SQ [facility] Prednisone (Deltasone -) 40 mg PO DAILY [facility] Last Admin: 11/18/16 09:11 Dose: 40 mg Rosuvastatin Calcium (Crestor -) 10 mg PO HS [facility] Last Admin: 11/17/16 21:19 Dose: 10 mg Valsartan (Diovan -) 320 mg PO DAILY [facility] Last Admin: 11/18/16 09:11 Dose: 320 mg - Objective Vital Signs: Vital Signs Temperature 97.8 F 11/18/16 06:00 Pulse Rate 77 11/18/16 06:00 Respiratory Rate 20 11/18/16 06:00 Blood Pressure 135/77 11/18/16 06:00 O2 Sat by Pulse Oximetry (%) 95 11/18/16 06:00 Constitutional: Yes: Well Nourished, Calm Eyes: Yes: WNL HENT: Yes: WNL Neck: Yes: WNL Cardiovascular: Yes: Regular Rate and Rhythm, S1, S2 Respiratory: Yes: CTA Bilaterally Gastrointestinal: Yes: Normal Bowel Sounds, Soft Extremities: Yes: WNL Edema: No Labs: CBC, BMP 11/17/16 05:35 11/17/16 05:35 INR, PTT INR 1.11 (0.82-1.09) 11/15/16 09:45 - ....Imaging Chest X-ray: Report Reviewed, Image Reviewed (CARDIOMEGALY,LESS CONGESTION) Assessment/Plan Problem List - Problems (1) CAD S/P percutaneous coronary angioplasty Code(s): I25.10 - ATHSCL HEART DISEASE OF [place] CORONARY ARTERY W/O ANG PCTRS Z98.61 - CORONARY ANGIOPLASTY STATUS (2) CHF (congestive heart failure) Code(s): I50.9 - HEART FAILURE, UNSPECIFIED Qualifiers: Congestive heart failure type: combined Congestive heart failure chronicity: acute on chronic Qualified Code(s): I50.43 - Acute on chronic combined systolic (congestive) and diastolic (congestive) heart failure (3) COPD (chronic obstructive pulmonary disease) Code(s): J44.9 - CHRONIC OBSTRUCTIVE PULMONARY DISEASE, UNSPECIFIED Qualifiers : COPD type: COPD with acute exacerbation Qualified Code(s): J44.1 - Chronic obstructive pulmonary disease with (acute) exacerbation (4) Diabetes mellitus, insulin dependent (IDDM), uncontrolled Code(s): E10.65 - TYPE 1 DIABETES MELLITUS WITH HYPERGLYCEMIA Qualifiers: Diabetes mellitus complication status: with unspecified complications Qualified Code(s): E10.8 - Type 1 diabetes mellitus with unspecified complications; E10.65 - Type 1 diabetes mellitus with hyperglycemia (5) Dyslipidemia Code(s): E78.5 - HYPERLIPIDEMIA, UNSPECIFIED (6) HTN (hypertension) Code(s): I10 - ESSENTIAL (PRIMARY) HYPERTENSION Qualifiers: Hypertension type: essential hypertension Qualified Code(s): I10 - Essential (primary) hypertension (7) Mitral valve regurgitation Code(s): I34.0 - NONRHEUMATIC MITRAL (VALVE) INSUFFICIENCY Qualifiers: Cardiac valve disease etiology: etiology unspecified Qualified Code(s) : I34.0 - Nonrheumatic mitral (valve) insufficiency (8) Respiratory failure Code(s): J96.90 - RESPIRATORY FAILURE, UNSP, UNSP W HYPOXIA OR HYPERCAPNIA Qualifiers: Chronicity: acute on chronic Respiratory failure complication: hypoxia and hypercapnia Qualified Code(s): J96.21 - Acute and chronic respiratory failure with hypoxia (9) Smoking Code(s): F17.200 - NICOTINE DEPENDENCE, UNSPECIFIED, UNCOMPLICATED (10) COPD (chronic obstructive pulmonary disease) with acute bronchitis Code(s): J44.0 - CHRONIC OBSTRUCTIVE PULMON DISEASE W ACUTE LOWER RESP INFCT (11) Diabetes Code(s): E11.9 - TYPE 2 DIABETES MELLITUS WITHOUT COMPLICATIONS Qualifiers: Diabetes mellitus type: other specified (including YULISA) Diabetes mellitus complication status: with unspecified complications Diabetes mellitus medical terminologist insulin use: with medical terminologist use Qualified Code(s): E13.8 - Other specified diabetes mellitus with unspecified complications; Z79.4 - [employer] (current) use of insulin (12) NSVT (nonsustained ventricular tachycardia) Code(s): I47.2 - VENTRICULAR TACHYCARDIA (13) Obesity Code(s): E66.9 - OBESITY, UNSPECIFIED Assessment/Plan Lasix as per Cardiology Strict I&O BD TX Follow Renal Function DR LORA
[2016-11-18] MEDS: ROSUVASTATIN CA 10 MG TABLET (FP) PO SCH (21:46)
[2016-11-18] MEDS ORDERED: INSULIN DETEMIR 100 UNITS/ML MDV SQ SCH (22:00)
[2016-11-19] MEDS: ALBUTEROL SO4 2.5/IPRATROPIUM 0.5 INH SOL 3 ML VIAL.NEB. NEB SCH ×3 (06:01→11:35)
[2016-11-19] MEDS: INSULIN SLIDING SCALE (NOVOLOG) 1 VIAL SQ SCH (06:18)
[2016-11-19] MEDS: glyBURIDE 5 MG TABLET (UD) PO SCH (06:22)
--- NOTE | 2016-11-19 08:25 | DS ---
Physical Examination Vital Signs: Vital Signs Temperature 98.2 F 11/19/16 05:15 Pulse Rate 72 11/19/16 05:15 Respiratory Rate 20 11/19/16 05:15 Blood Pressure 175/82 11/19/16 05:15 O2 Sat by Pulse Oximetry (%) 96 11/18/16 21:00 Cardiovascular: Yes: Regular Rate and Rhythm, Murmur Respiratory: Yes: Regular, CTA Bilaterally Gastrointestinal: Yes: Normal Bowel Sounds, Soft Labs: CBC, BMP 11/17/16 05:35 11/17/16 05:35 Discharge Summary Reason For Visit: CAD; CORONARY ANGIOPLASTY; CHF; DIABETES Current Active Problems CAD S/P percutaneous coronary angioplasty (Acute) CHF (congestive heart failure) (Acute) COPD (chronic obstructive pulmonary disease) (Acute) Diabetes mellitus, insulin dependent (IDDM), uncontrolled (Acute) Dyslipidemia (Acute) HTN (hypertension) (Acute) Mitral valve regurgitation (Acute) Respiratory failure (Acute) Smoking (Acute) Hospital Course: Patient is a 81 year old female with a significant past medical history of COPD AND CHF, CAD (S/P STENTING), HTN, Hyperlipidemia, COPD, O2 Dependent, Chronic low back pain, Diabetes Mellitus who was brought by EMS to the ED with complaints of SOB beginning this morning. Patient's daughter reports patient woke up this morning and was having trouble breathing. Patients daugher reports patient usually has trouble breathing initially every morning and begins to get better as the day goes on. Patient's daughter reports patient came to the ED in july for the same SOB problem. Patient's daughter states patient has a leaky valve. As per EMS patient took albuterol x1 by herself this morning. History Source: Patient, Family Member Limitations to Obtaining History: No Limitations - Past Medical History Cardiovascular: Yes: CAD (S/P STENTING), HTN, Hyperlipdemia Pulmonary: Yes: COPD, O2 Dependent Musculoskeletal: Yes: Chronic low back pain Endocrine: Yes: Diabetes Mellitus - Problems (1) COPD (chronic obstructive pulmonary disease) Assessment/Plan: IV STEROIDS--TAPER--TO PO NEBS O2 PT Code(s): J44.9 - CHRONIC OBSTRUCTIVE PULMONARY DISEASE, UNSPECIFIED Qualifiers : COPD type: COPD with acute exacerbation Qualified Code(s): J44.1 - Chronic obstructive pulmonary disease with (acute) exacerbation (2) CHF (congestive heart failure) Assessment/Plan: IV LASIX--TO PO LOW SALT DIET COMPLIANCE DISCUSSED ON ARB Code(s): I50.9 - HEART FAILURE, UNSPECIFIED Qualifiers: Congestive heart failure type: combined Congestive heart failure chronicity: acute on chronic Qualified Code(s): I50.43 - Acute on chronic combined systolic (congestive) and diastolic (congestive) heart failure (3) CAD S/P percutaneous coronary angioplasty Assessment/Plan: ON STATIN AND ASA Code(s): I25.10 - ATHSCL HEART DISEASE OF [place] CORONARY ARTERY W/O ANG PCTRS Z98.61 - CORONARY ANGIOPLASTY STATUS (4) Diabetes mellitus, insulin dependent (IDDM), uncontrolled Assessment/Plan: BGM ADD LEVEMIR Code(s): E10.65 - TYPE 1 DIABETES MELLITUS WITH HYPERGLYCEMIA Qualifiers: Diabetes mellitus complication status: with unspecified complications Qualified Code(s): E10.8 - Type 1 diabetes mellitus with unspecified complications; E10.65 - Type 1 diabetes mellitus with hyperglycemia (5) Mitral valve regurgitation Assessment/Plan: CARDIO NOTED T/S CONSULT OUTPATIENT Code(s): I34.0 - NONRHEUMATIC MITRAL (VALVE) INSUFFICIENCY Qualifiers: Cardiac valve disease etiology: etiology unspecified Qualified Code(s) : I34.0 - Nonrheumatic mitral (valve) insufficiency (6) A-FIB Assessment/Plan: RESUME PRADAXA Condition: Improved - Instructions Referrals: Aman Russell MD [Primary Care Provider] - Disposition: SNF FACILITY - Home Medications Comprehensive Discharge Medication List: Ambulatory Orders Diltiazem Cd [Cardizem Cd -] 240 mg PO DAILY 11/15/16 Furosemide 20 mg PO DAILY 11/15/16 Glyburide 5 mg PO BID 11/15/16 Metformin HCl 500 mg PO BID 11/15/16 Rosuvastatin [Crestor -] 20 mg PO DAILY 11/15/16 Valsartan 320 mg PO DAILY 11/15/16 Albuterol 2.5/Ipratropium 0.5 [Duoneb -] 1 amp NEB QIDR amp 11/19/16 Aspirin [ASA -] 81 mg PO DAILY #30 tab.chew 11/19/16 Furosemide [Lasix -] 60 mg PO DAILY tablet 11/19/16 Insulin (Levemir) [Levemir Vial] 15 units SQ HS ml 11/19/16 Insulin Sliding Scale [Novolog Vial Sliding Scale -] 1 vial SQ ACHS units 11/19 Prednisone [Deltasone -] 40 mg PO DAILY tablet 11/19/16
[2016-11-19] MEDS: VALSARTAN 160 MG TABLET (UD) PO SCH (09:02)
[2016-11-19] MEDS: ASPIRIN COATED 81 MG TABLET.EC PO SCH (09:02)
[2016-11-19] MEDS: predniSONE 20 MG TABLET (UD) PO SCH (09:02)
[2016-11-19] MEDS ORDERED: DABIGATRAN ETEXILATE MESYLATE 75 MG CAPSULE PO SCH (10:00)
[2016-11-19] MEDS ORDERED: APIXABAN 5 MG TABLET PO SCH (10:00)
[2016-11-19] MEDS ORDERED: FUROSEMIDE 40 MG TABLET (FP) PO SCH (10:00)
--- NOTE | 2016-11-19 10:25 | EKG ---
Test Reason : Blood Pressure : / mmHG Vent. Rate : 068 BPM Atrial Rate : 074 BPM P-R Int : 000 ms QRS Dur : 110 ms QT Int : 428 ms P-R-T Axes : 000 036 121 degrees QTc Int : 455 ms ATRIAL FIBRILLATION NONSPECIFIC T WAVE ABNORMALITY ABNORMAL ECG WHEN COMPARED WITH ECG OF 15-NOV-2016 10:04, CRITERIA FOR ANTERIOR INFARCT ARE NO LONGER PRESENT Confirmed by JENNIFER PILLAI MD ([id number]) on 11/19/2016 10:24:42 AM Referred By: ANTONY CAMACHO DR Confirmed By:JENNIFER PILLAI MD
[2016-11-19 10:37] VITALS: PULSE 76
--- NOTE | 2016-11-19 12:08 | PN ---
Progress Note (short form) - Note Progress Note: PULMONARY States breathing has improved. No chest pain. Last Vital Signs Temp Pulse Resp BP Pulse Ox 98.2 F 76 20 175/82 96 11/19/16 05:15 11/19/16 10:35 11/19/16 05:15 11/19/16 05:15 11/19/16 10:35 Gen: NAD at rest Heart: irregular Lung: decreased breath sounds at the bases Abd: soft, nontender Ext: trace edema CBC, BMP 11/17/16 05:35 11/17/16 05:35 Active Medications Acetaminophen (Tylenol -) 650 mg PO Q6H PRN PRN Reason: FEVER OR PAIN Albuterol Sulfate (Ventolin 0.083% Nebulizer Soln -) 1 amp NEB Q4H PRN PRN Reason: SHORT OF BREATH/WHEEZING Albuterol/Ipratropium (Duoneb -) 1 amp NEB QIDR [facility] Last Admin: 11/19/16 11:35 Dose: 1 amp Aspirin (Ecotrin -) 81 mg PO DAILY [facility] Last Admin: 11/19/16 09:02 Dose: 81 mg Dabigatran (Pradaxa -) 75 mg PO BID [facility] Diltiazem HCl (Cardizem Cd -) 240 mg PO DAILY [facility] Last Admin: 11/19/16 09:02 Dose: 240 mg Furosemide (Lasix -) 40 mg PO DAILY [facility] Last Admin: 11/19/16 09:02 Dose: 40 mg Glyburide (Diabeta -) 5 mg PO BIDAC [facility] Last Admin: 11/19/16 06:22 Dose: 5 mg Insulin Aspart (Novolog Vial Sliding Scale -) 1 vial SQ ACHS [facility] PRN Reason: Protocol Last Admin: 11/19/16 06:18 Dose: Not Given Insulin Detemir (Levemir Vial) 15 units SQ HS [facility] Last Admin: 11/18/16 21:50 Dose: 15 units Prednisone (Deltasone -) 40 mg PO DAILY [facility] Last Admin: 11/19/16 09:02 Dose: 40 mg Rosuvastatin Calcium (Crestor -) 10 mg PO HS [facility] Last Admin: 11/18/16 21:46 Dose: 10 mg Valsartan (Diovan -) 320 mg PO DAILY [facility] Last Admin: 11/19/16 09:02 Dose: 320 mg A/P Acute on Chronic Diastolic Heart Failure improving Mitral Regurgitation CAD COPD HTN DM Hyperlipidemia - continue lasix - monitor urine output, creatinine - taper off prednisone - glucose control - for outpt eval for MVR/clipping - d/c planning
[2016-11-19 12:17] VITALS: BP 137/54; TEMP 98
== END 2016-11-19 12:48 | DRG 291 ==
LOC: JER 09:29 → JERBED 09:51 → JICU 13:05 → J4W 11-16 19:16
PROVIDERS: ADMIT Family Medicine; ATTEND Family Medicine
DX: I13.0 Hypertensive heart and chronic kidney disease with heart failure and stage 1 through stage 4 chronic kidney disease, or unspecified chronic kidney disease (principal); I50.33 Acute on chronic diastolic (congestive) heart failure; J96.21 Acute and chronic respiratory failure with hypoxia; J44.1 Chronic obstructive pulmonary disease with (acute) exacerbation; E11.65 Type 2 diabetes mellitus with hyperglycemia; I34.0 Nonrheumatic mitral (valve) insufficiency; N18.9 Chronic kidney disease, unspecified; I48.91 Unspecified atrial fibrillation; F17.210 Nicotine dependence, cigarettes, uncomplicated; Z99.81 Dependence on supplemental oxygen; I25.10 Atherosclerotic heart disease of native coronary artery without angina pectoris; Z79.4 Long term (current) use of insulin; Z79.01 Long term (current) use of anticoagulants; E78.5 Hyperlipidemia, unspecified; G89.29 Other chronic pain; M54.5 Low back pain; Z86.73 Personal history of transient ischemic attack (TIA), and cerebral infarction without residual deficits; Z98.61 Coronary angioplasty status; Z79.84 Long term (current) use of oral hypoglycemic drugs
CPT/HCPCS: 36415; 36600; 71010-TC; 80048; 80053; 81003; 82009; 82375; 82803; 83050; 83605; 84484; 85025; 85027; 85610; 85730; 86850; 86900; 86901; 87040; 87086; 93005; 93010; 94640; 94660; 97116-GP; 97161-GP; 99284-25

== ENCOUNTER 2017-06-22 09:48 | Inpatient (IN) | payer OTHER ==
[2017-06-22] MEDS ORDERED: ALBUTEROL SO4 2.5/IPRATROPIUM 0.5 INH SOL 3 ML VIAL.NEB. NEB ONE ×2 (10:13→10:21)
[2017-06-22] MEDS ORDERED: ASPIRIN 81 MG CHEWABLE TABLETS PO ONE (10:14)
--- NOTE | 2017-06-22 10:19 | PDOC ---
History of Present Illness - General Chief Complaint: Shortness of Breath Stated Complaint: COPD Time Seen by Provider: 06/22/17 10:04 - History of Present Illness Initial Comments: 06/22/17 10:15 CHIEF COMPLAINT: shortness of breath HISTORY OF PRESENT ILLNESS: 82 yo F with a significant past medical history of COPD AND CHF, CAD (S/P STENTING), HTN, Hyperlipidemia, COPD, O2 Dependent, Chronic low back pain, Diabetes Mellitus who was brought by EMS to the ED with complaints of SOB worsening over the past few days. Patient reports that "my legs were so swollen before, and he [PCP Annabi] tripled my medicine, so the swelling has gone down, but I'm still having shortness of breath." PAST MEDICAL HISTORY: Denies past medical history FAMILY HISTORY: Denies SOCIAL HISTORY: Denies tobacco, alcohol, illicit drug use. SURGICAL HISTORY: Denies ALLERGIES: No known drug allergies REVIEW OF SYSTEMS General/Constitutional: Denies fever or chills. Denies weakness. HEENT: Denies change in vision. Denies ear pain or discharge. Denies sore throat. Cardiovascular: Worsening shortness of breath "past few days." Respiratory: Denies cough, wheezing, or hemoptysis. Gastrointestinal: Denies nausea, vomiting, diarrhea or constipation. Genitourinary: Denies dysuria, frequency, or change in urination. Musculoskeletal: Denies joint or muscle swelling or pain. Denies neck or back pain. Skin and breasts: Denies rash or easy bruising. Neurologic: Denies headache, vertigo, loss of consciousness, or loss of sensation. PHYSICAL EXAM General Appearance: Well-appearing, appropriately dressed. No apparent distress. HEENT: EOMI, PERRLA, normal ENT inspection, normal voice, TMs normal, pharynx normal. No conjunctival pallor. No photophobia, scleral icterus. Neck: Supple. Trachea midline. No tenderness, rigidity, carotid bruit, stridor , lymphadenopathy, or thyromegaly. Respiratory/Chest: Mild expiratory wheezing to b/l lungs. No respiratory distress, accessory muscle use. No crackles, rales, rhonchi, stridor, dullness Cardiovascular: RRR. S1, S2. Vascular Pulses: Dorsalis-Pedis (R): 2+, Dorsalis-Pedis (L): 2+ Gastrointestinal/Abdominal: Normal bowel sounds. Abdomen soft, non-distended. No tenderness or rebound tenderness. No organomegaly, pulsatile mass, guarding , hernia, hepatomegaly, splenomegaly. Musculoskeletal/Extremities: Normal inspection. FROM of all extremities, normal capillary refill. Pelvis Stable. No CVA tenderness. No tenderness to extremities, pedal edema, swelling, erythema or deformity. Integumentary: Appropriate color, dry, warm. 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 Fully oriented, alert. Appropriate mood/affect. Motor strength 5/5. No appreciable EOM palsy, facial droop or sensory deficit. Past History - Past Medical History Allergies/Adverse Reactions: Allergies Allergy/AdvReac Type Severity Reaction Status Date / Time No Known Allergies Allergy Verified 11/15/16 09:41 Home Medications: Ambulatory Orders Diltiazem Cd [Cardizem Cd -] 240 mg PO DAILY 11/15/16 Glyburide 5 mg PO BID 11/15/16 Metformin HCl 500 mg PO BID 11/15/16 Rosuvastatin [Crestor -] 20 mg PO DAILY 11/15/16 Valsartan 320 mg PO DAILY 11/15/16 Albuterol 2.5/Ipratropium 0.5 [Duoneb -] 1 amp NEB QIDR amp 11/19/16 Aspirin [ASA -] 81 mg PO DAILY #30 tab.chew 11/19/16 Furosemide [Lasix -] 60 mg PO DAILY tablet 11/19/16 Cholecalciferol (Vitamin D3) [Optimal D3] 50,000 unit PO WEEKLY 06/22/17 Dabigatran Etexilate Mesylate [Pradaxa -] 150 mg PO BID 06/22/17 Sitagliptin Phosphate [Januvia] 50 mg PO DAILY@0700 06/22/17 Anemia: No Asthma: No Cancer: No Cardiac Disorders: Yes (s/p stents x 2, aortic valve leaking) CVA: No COPD: Yes CHF: Yes Dementia: No Diabetes: Yes GI Disorders: No Disorders: No HTN: Yes Hypercholesterolemia: Yes Liver Disease: No Seizures: No Thyroid Disease: No - Surgical History Abdominal Surgery: No Appendectomy: No Cardiac Surgery: Yes (stents) Cholecystectomy: No Lung Surgery: No Neurologic Surgery: No Orthopedic Surgery: Yes (Left wrist) - Immunization History Immunization Up to Date: Yes - Suicide/Smoking/Psychosocial Hx Smoking Status: No Smoking History: Former smoker Have you smoked in the past 12 months: No Number of Cigarettes Smoked Daily: 0 If you are a former smoker, when did you quit?: 6 Cigars Per Day: 0 Information on smoking cessation initiated: No 'Breaking Loose' booklet given: 08/31/11 Hx Alcohol Use: No Drug/Substance Use Hx: No Substance Use Type: None Hx Substance Use Treatment: No Respiratory Specific PMHX - Complaint Specific PMHX Angina: No *Physical Exam - Vital Signs Last Vital Signs Temp Pulse Resp BP Pulse Ox 102.0 F H 112 H 24 139/75 91 L 06/22/17 09:50 06/22/17 09:50 06/22/17 09:50 06/22/17 09:50 06/22/17 09:50 ED Treatment Course - LABORATORY CBC & Chemistry Diagram: 06/22/17 10:13 06/22/17 10:13 - RADIOLOGY Radiology Studies Ordered: Category Date Time Status CHEST X-RAY PORTABLE* [RAD] Stat Radiology 06/22/17 10:07 Ordered Medical Decision Making - Medical Decision Making 06/22/17 10:18 Patient is a 81 year old female with a significant past medical history of COPD AND CHF, CAD (S/P STENTING), HTN, Hyperlipidemia, COPD, O2 Dependent, Chronic low back pain, Diabetes Mellitus who was brought by EMS to the ED with complaints of SOB worsening over the past few days. Patient febrile to 102F and tachy to 112, will order septic workup. 06/22/17 11:57 CXR with mild patchy infiltrate to R upper lobe. Labs unremarkable. Will start ceftriaxone prophylactically for possible early pneumonia vs UTI. *DC/Admit/Observation/Transfer Diagnosis at time of Disposition: COPD (chronic obstructive pulmonary disease) with acute bronchitis - Discharge Dispostion Admit: Yes - Referrals Referrals: Aman Russell MD [Primary Care Provider] - - Patient Instructions - Post Discharge Activity
[2017-06-22] MEDS ORDERED: ASPIRIN 81 MG CHEWABLE TABLETS ONE (10:21)
[2017-06-22] MEDS ORDERED: ACETAMINOPHEN 1000 MG/100 ML VIAL (NON FORMULARY) IVPB ONE (10:23)
[2017-06-22] MEDS ORDERED: ACETAMINOPHEN INJECTION 100 ML IVPB ONE (10:27)
[2017-06-22 10:40] LABS: BASO % 0.3 % (0-2.0); EOS % 0.2 % (0-4.5); HEMOGLOBIN 12.2 GM/dL (10.7-15.3); LYMPH % 15.9 % (8-40); MCH 27.5 pg (25.7-33.7); MCHC 32.2 g/dl (32.0-36.0); MEAN CELL VOLUME 85.5 fl (80-96); MEAN PLT VOLUME 9.3 fl (7.5-11.1); MONO % 5.7 % (3.8-10.2); NEUT % 77.9 % (42.8-82.8); PLATELET COUNT 174 K/MM3 (134-434); RBC 4.44 M/mm3 (3.60-5.2); RDW 20.9 % (11.6-15.6); WHITE BLOOD COUNT 5.9 K/mm3 (4.0-10.0)
[2017-06-22 10:49] LABS: VENOUS PC02 50.1 mmHg (38-52); VENOUS PH 7.4 (7.32-7.42); VENOUS PO2 27.2 mmHg (28-48)
[2017-06-22 10:53] LABS: INR 1.19 (0.82-1.09); PROTHROMBIN TIME (PATIENT) 13.4 SEC (9.7-13.0)
[2017-06-22 10:55] LABS: ACTIVATED PTT 40.3 SECONDS (26.9-34.4)
[2017-06-22 11:10] LABS: ALBUMIN 3.3 g/dl (3.4-5.0); ALK PHOS 63 U/L (45-117); ANION GAP 10 (8-16); BLOOD UREA NITROGEN 22 mg/dL (7-18); CALCIUM 8.9 mg/dL (8.5-10.1); CHLORIDE 98 mmol/L (98-107); CO2 31 mmol/L (21-32); CREATININE 1.1 mg/dL (0.55-1.02); GLUCOSE,RANDOM 145 mg/dL (74-106); POTASSIUM 3.7 mmol/L (3.5-5.1); SGOT/AST 27 U/L (15-37); SGPT/ALT 16 U/L (12-78); SODIUM 139 mmol/L (136-145)
--- NOTE | 2017-06-22 11:45 | PDOC ---
*Physical Exam - Vital Signs Last Vital Signs Temp Pulse Resp BP Pulse Ox 100 F H 98 H 24 134/68 95 06/22/17 11:22 06/22/17 11:22 06/22/17 11:22 06/22/17 11:22 06/22/17 11:22 ED Treatment Course - LABORATORY CBC & Chemistry Diagram: 06/22/17 10:13 06/22/17 10:13 - ADDITIONAL ORDERS Additional order review: Laboratory Results 06/22/17 06/22/17 06/22/17 10:13 10:13 10:13 PT with INR INR PTT (Actin FS) VBG pH 7.40 D POC VBG pCO2 50.1 POC VBG pO2 27.2 L D Mixed VBG HCO3 30.3 H Sodium 139 Potassium 3.7 Chloride 98 Carbon Dioxide 31 Anion Gap 10 BUN 22 H Creatinine 1.1 H Creat Clearance w eGFR 47.32 Random Glucose 145 H Lactic Acid 1.5 Calcium 8.9 Total Bilirubin 1.0 D AST 27 ALT 16 Alkaline Phosphatase 63 Total Protein 7.0 Albumin 3.3 L 06/22/17 10:13 PT with INR 13.40 H INR 1.19 H PTT (Actin FS) 40.3 H VBG pH POC VBG pCO2 POC VBG pO2 Mixed VBG HCO3 Sodium Potassium Chloride Carbon Dioxide Anion Gap BUN Creatinine Creat Clearance w eGFR Random Glucose Lactic Acid Calcium Total Bilirubin AST ALT Alkaline Phosphatase Total Protein Albumin 06/22/17 10:13 RBC 4.44 D MCV 85.5 MCHC 32.2 RDW 20.9 H D MPV 9.3 Neutrophils % 77.9 Lymphocytes % 15.9 D Monocytes % 5.7 Eosinophils % 0.2 D Basophils % 0.3 - Medications Given in the ED: ED Medications Discontinued Medications Generic Name Dose Route Start Last Admin Trade Name Freq PRN Reason Stop Dose Admin Acetaminophen 1,000 mg 06/22/17 10:23 06/22/17 10:31 Ofirmev Injection - IVPB 06/22/17 10:24 1,000 mg ONCE ONE Administration Albuterol/Ipratropium 1 amp 06/22/17 10:13 06/22/17 10:26 Duoneb - NEB 06/22/17 10:14 1 amp ONCE ONE Administration Aspirin 162 mg 06/22/17 10:14 06/22/17 10:27 Asa - PO 06/22/17 10:15 162 mg ONCE ONE Administration Medical Decision Making - Medical Decision Making 06/22/17 11:44 Patient seen and evaluated with the nurse practitioner. I agree with the overall evaluation, assessment, and management with the following summary of visit: 82-year-old female with history of COPD presents with fever, tachycardia, relative hypoxia and mild to moderate respiratory distress. Exam as noted Presentation concerning for COPD exacerbation plus or minus pneumonia, possible CHF component but aggressively diuresed as outpatient. Sepsis protocol initiated Chest x-ray, nebulizers, Admission *DC/Admit/Observation/Transfer Diagnosis at time of Disposition: COPD (chronic obstructive pulmonary disease) with acute bronchitis - Referrals Referrals: Aman Russell MD [Primary Care Provider] - - Patient Instructions - Post Discharge Activity
[2017-06-22] MEDS ORDERED: CEFTRIAXONE 1,000 MG in DEXTROSE 5%-WATER - 50 ML IVPB ONE (11:47)
[2017-06-22] MEDS ORDERED: CEFTRIAXONE 1 GM/50 ML BAG ONE (11:53)
[2017-06-22 14:17] LABS: URINE APPEARANCE SLCLOUDY; URINE BILIRUBIN NEGATIVE (<2.0 mg/dL); URINE COLOR DKYELLOW; URINE GLUCOSE (UA) NEGATIVE (NEGATIVE); URINE KETONE NEGATIVE (NEGATIVE); URINE LEUK ESTERASE NEGATIVE (NEGATIVE); URINE NITRITE NEGATIVE (NEGATIVE); URINE UROBILINOGEN NEGATIVE mg/dL (0.2-1.0)
[2017-06-22 14:20] LABS: URINE PROTEIN 2+ (NEGATIVE)
[2017-06-22 14:22] LABS: EPI CELLS RARE /HPF (FEW); URINE HYALINE CAST 3 /lpf; URINE MUCUS RARE
--- NOTE | 2017-06-22 14:44 | PN ---
Progress Note (short form) - Note Progress Note: ID consult dictated imp/reccd 82 year old female lives at home, developed worseing sob and edema of her legs last week- seen by PMD and lasix increased with good results cob didnot improve 3 days ago she started coughing no fevers nonproductive cough no chills no vamiting son has had bad cough for last one week home oxygen for last several years worsening BARRETT for last several months febrile to 102 in ed +nonproductive cough cxray with congestion no cigarettes for 3 years now fever bronchitis cannot r/o pneumonia history copd history chf cultures influenza screen urinary antigens rocephin/zithromax pulmonary consult Problem List - Problems (1) Fever Code(s): R50.9 - FEVER, UNSPECIFIED (2) Pneumonia Code(s): J18.9 - PNEUMONIA, UNSPECIFIED ORGANISM (3) COPD (chronic obstructive pulmonary disease) Code(s): J44.9 - CHRONIC OBSTRUCTIVE PULMONARY DISEASE, UNSPECIFIED Qualifiers: COPD type: COPD with acute exacerbation Qualified Code(s): J44.1 - Chronic obstructive pulmonary disease with (acute) exacerbation (4) CHF (congestive heart failure) Code(s): I50.9 - HEART FAILURE, UNSPECIFIED
[2017-06-22] MEDS ORDERED: AZITHROMYCIN IVPB 250 ML IVPB ONE (15:25)
[2017-06-22] MEDS: AZITHROMYCIN IVPB 500 MG in DEXTROSE 5%-WATER - 250 ML IVPB SCH (15:30)
--- NOTE | 2017-06-22 15:42 | CON.PULM ---
Consult Consult Specialty:: PULMONARY Referred by:: MITESH Venegas Reason for Consultation:: shortness of breath - History of Present Illness Chief Complaint: shortness of breath History of Present Illness: 82yo female with h/o HTN, hyperlipidemia, DM, COPD, chronic hypoxic respiratory failure on home O2, CAD s/p stents, atrial fibrillation, LV diastolic dysfunction, severe mitral regurgitation who was admitted with worsening shortness of breath x "few days." Denies chest pain or palpitations. No fevers, chills or sweats but febrile to 102 on presentation. Reports her son experiencing a "croup cough" for the past 10 days. States her legs were more swollen but was told by her PMD to increase her diuretic dose with improvement in leg swelling but not her shortness of breath. +nonproductive cough and wheezing. Uses her Advair intermittently, but does use her nebulizers. She is a long time smoker, smoked for 60 years, quit 4 years ago. - History Source History Provided By: Patient, Medical Record Limitations to Obtaining History: No Limitations - Past Medical History Cardio/Vascular: Yes: AFIB, CAD (S/P STENTING), CHF, HTN, Hyperlipdemia Pulmonary: Yes: COPD, O2 Dependent Musculoskeletal: Yes: Chronic low back pain Endocrine: Yes: Diabetes Mellitus - Alcohol/Substance Use Hx Alcohol Use: No - Smoking History Smoking history: Former smoker Have you smoked in the past 12 months: No Aproximately how many cigarettes per day: 0 If you are a former smoker, when did you quit?: 6 Home Medications - Allergies Allergies/Adverse Reactions: Allergies Allergy/AdvReac Type Severity Reaction Status Date / Time No Known Allergies Allergy Verified 11/15/16 09:41 - Home Medications Home Medications: Ambulatory Orders Diltiazem Cd [Cardizem Cd -] 240 mg PO DAILY 11/15/16 Glyburide 5 mg PO BID 11/15/16 Metformin HCl 500 mg PO BID 11/15/16 Rosuvastatin [Crestor -] 20 mg PO DAILY 11/15/16 Valsartan 320 mg PO DAILY 11/15/16 Albuterol 2.5/Ipratropium 0.5 [Duoneb -] 1 amp NEB QIDR amp 11/19/16 Aspirin [ASA -] 81 mg PO DAILY #30 tab.chew 11/19/16 Furosemide [Lasix -] 60 mg PO DAILY tablet 11/19/16 Cholecalciferol (Vitamin D3) [Optimal D3] 50,000 unit PO WEEKLY 06/22/17 Dabigatran Etexilate Mesylate [Pradaxa -] 150 mg PO BID 06/22/17 Sitagliptin Phosphate [Januvia] 50 mg PO DAILY@0700 06/22/17 Review of Systems - Review of Systems Constitutional: reports: Weakness. denies: Chills, Fever Eyes: denies: Recent Change in Vision HENT: denies: Nasal Congestion, Throat Pain Neck: denies: Stiffness, Tenderness Cardiovascular: reports: Edema, Shortness of Breath. denies: Chest Pain, Palpitations Respiratory: reports: Cough, Exercise Intolerance, SOB on Exertion, Wheezing. denies: Hemoptysis Gastrointestinal: denies: Abdominal Pain, Nausea, Vomiting Genitourinary: denies: Dysuria, Hematuria Neurological: denies: Dizziness, Headache Physical Exam Vital Sings: Vital Signs Temperature 98 F 06/22/17 14:11 Pulse Rate 93 H 06/22/17 14:11 Respiratory Rate 24 06/22/17 14:11 Blood Pressure 158/89 06/22/17 14:11 O2 Sat by Pulse Oximetry (%) 95 06/22/17 14:11 Constitutional: Yes: Calm Eyes: Yes: Conjunctiva Clear, EOM Intact HENT: Yes: Atraumatic, Normocephalic Neck: Yes: Supple, Trachea Midline Cardiovascular: Yes: Tachycardia Respiratory: Yes: Rhonchi, Wheezes ...Clubbing: No Gastrointestinal: Yes: Normal Bowel Sounds, Soft. No: Tenderness Edema: Yes Neurological: Yes: Alert, Oriented Labs: CBC, BMP 06/22/17 10:13 06/22/17 10:13 Imaging - Results Chest X-ray: Report Reviewed, Image Reviewed (cardiomegaly, pulmonary vascular congestion) Problem List - Problems (1) COPD exacerbation Code(s): J44.1 - CHRONIC OBSTRUCTIVE PULMONARY DISEASE W (ACUTE) EXACERBATION (2) Pneumonia Code(s): J18.9 - PNEUMONIA, UNSPECIFIED ORGANISM (3) CAD S/P percutaneous coronary angioplasty Code(s): I25.10 - ATHSCL HEART DISEASE OF [place] CORONARY ARTERY W/O ANG PCTRS; Z98.61 - CORONARY ANGIOPLASTY STATUS (4) Dyslipidemia Code(s): E78.5 - HYPERLIPIDEMIA, UNSPECIFIED (5) HTN (hypertension) Code(s): I10 - ESSENTIAL (PRIMARY) HYPERTENSION Qualifiers: Hypertension type: essential hypertension Qualified Code(s): I10 - Essential (primary) hypertension (6) Mitral valve regurgitation Code(s): I34.0 - NONRHEUMATIC MITRAL (VALVE) INSUFFICIENCY Qualifiers: Cardiac valve disease etiology: etiology unspecified Qualified Code(s): I34.0 - Nonrheumatic mitral (valve) insufficiency Assessment/Plan Viral Syndrome vs Pneumonia Acute COPD Exacerbation Chronic Hypoxic Respiratory Failure LV Diastolic Dysfunction Atrial Fibrillation Mitral Regurgitation CAD HTN DM Hyperlipidemia - agree with empiric antibiotics per ID - f/u cultures - send influenza swab, urinary antigens - will start short course of medrol - inhaled bronchodilators - O2 to keep SpO2 >90% - rate control - continue anticoagulation Thank you for this consult Alejo Medeiros MD
[2017-06-22 16:01] VITALS: BMI 29.2
--- NOTE | 2017-06-22 16:06 | CONS ---
DATE OF CONSULTATION: DATE OF DICTATION: 06/22/2017 INFECTIOUS DISEASE CONSULTATION REQUESTING PHYSICIAN: Aman Russell M.D. CONSULTING PHYSICIAN: Sumi York M.D. HISTORY OF PRESENT ILLNESS: This is an 82-year-old woman admitted from home. She reports that she lives with her son, who has not been well for about a week. He went to an urgent care center where he was told he had a viral infection. He has been coughing at home without getting any better. She reports that she has home COPD and has been on oxygen at home for several years. She is a former smoker, stopped smoking about 3-4 years ago. She uses home oxygen. Over the last several months her breathing has significantly worsened. Her doctor's office is 3 houses away, and she is unable to walk there. Her son had to drive her there. Last week she noted she had worsening lower extremity edema. She went to see the doctor in his office, and her diuretics were increased. She notes improvement with the swelling in her legs with the increase in her diuretics. She continued to feel short of breath however, and 3 days ago she started coughing. She assumed that she had picked up her son 's cold. The coughing persisted. She remained short of breath, and she came to the emergency room. In the ER this morning she presented with nonproductive cough and shortness of breath. She was found to have a fever of 102. She was unaware she had any fever at home. She denies any fevers or chills. There is no recent travel. PAST MEDICAL HISTORY: Notable for COPD, CHF, coronary artery disease, hypertension, hyperlipidemia, COPD with home oxygen, chronic low back pain, diabetes. She has cardiac stents, and she had a fracture of her left wrist. SURGICAL HISTORY: Unremarkable. ALLERGIES: She has no known drug allergies. MEDICATION: Her medications at home include Cardizem, glyburide, metformin, Crestor, valsartan, albuterol, aspirin, Lasix, vitamin D, Pradaxa, and Januvia. She has a history of atrial fibrillation as well as a leaking aortic valve. FAMILY HISTORY: Noncontributory. SOCIAL HISTORY: She stopped smoking 3 or 4 years ago. There is no history of any ETOH or substance use. REVIEW OF SYSTEMS: She denies sore throat. She denies nausea, vomiting, diarrhea, or dysuria. She notes she has been urinating frequently since her Lasix dose was increased. PHYSICAL EXAMINATION: Vital signs: In the ER, her T-max was 102, current temperature is 98, pulse is 93, blood pressure 158/89, respiratory rate 24, she is saturating 95% on 3 L. HEENT: Normocephalic. Eyes are anicteric. Neck: Supple. Lungs: Bibasilar crackles. She has no thrush or pharyngitis. Heart: Irregular. Abdomen: Soft, nontender. Extremities: Without any edema. LABORATORY: Notable for a white count of 5.9, hemoglobin 12.2, platelets of 174 , INR 1.1. She has not recently been on any steroids. BUN and creatinine are 22 and 1.1. LFTs are normal. BNP is 12,307. Urinalysis is negative. Cultures have been sent and are pending. Chest x-ray review of cardiomegaly with increased lung markings. A prior echo done in January of 2007 reveals severe mitral regurgitation and moderate aortic valve thickening. IMPRESSION: In summary, this is an 82-year-old woman admitted with fever, bronchitis, cannot rule out pneumonia, history of chronic obstructive pulmonary disease, history of congestive heart failure. Would obtain cultures. Influenza screen, urinary antigen, treated with Rocephin and Zithromax, would obtain a pulmonary consult as well. Further recommendations to follow. SUMI YORK M.D. [id number] MTDD
--- NOTE | 2017-06-22 16:24 | EKG ---
Test Reason : Blood Pressure : / mmHG Vent. Rate : 119 BPM Atrial Rate : 131 BPM P-R Int : 000 ms QRS Dur : 104 ms QT Int : 308 ms P-R-T Axes : 000 093 120 degrees QTc Int : 433 ms ATRIAL FIBRILLATION WITH RAPID VENTRICULAR RESPONSE ANTEROLATERAL INFARCT , AGE UNDETERMINED ABNORMAL ECG WHEN COMPARED WITH ECG OF 19-NOV-2016 08:48, VENT. RATE HAS INCREASED BY 51 BPM NON-SPECIFIC CHANGE IN ST SEGMENT IN LATERAL LEADS T WAVE AMPLITUDE HAS INCREASED IN ANTERIOR LEADS Confirmed by MD MALATHI, JESSICA ([id number]) on 06/22/2017 4:24:02 PM Referred By: Confirmed By:JESSICA SERVIN MD
[2017-06-22] MEDS: glyBURIDE 5 MG TABLET (UD) PO SCH (16:44)
[2017-06-22] MEDS: INSULIN SLIDING SCALE (NOVOLOG) 1 VIAL SQ SCH ×2 (16:44→21:45)
[2017-06-22] MEDS: methylPREDNISolone NA SUCC 40 MG/1 ML VIAL IVPUSH SCH ×2 (16:44→17:53)
[2017-06-22] MEDS: ALBUTEROL SO4 2.5/IPRATROPIUM 0.5 INH SOL 3 ML VIAL.NEB. NEB SCH ×2 (17:00→20:37)
[2017-06-22] MEDS ORDERED: INSULIN (NOVOLOG) ASPART 100 UNITS/ML 10ML VIAL ONE (20:57)
[2017-06-22] MEDS: ROSUVASTATIN CA 20 MG TABLET (FP) PO SCH (21:43)
[2017-06-22] MEDS: DABIGATRAN ETEXILATE MESYLATE 150 MG CAPSULE PO SCH (21:44)
[2017-06-23] MEDS: methylPREDNISolone NA SUCC 40 MG/1 ML VIAL IVPUSH SCH ×3 (01:22→21:03)
[2017-06-23] MEDS: glyBURIDE 5 MG TABLET (UD) PO SCH ×2 (06:39→16:55)
[2017-06-23] MEDS: FUROSEMIDE 40 MG/4 ML INJECTABLE VIAL IVPUSH SCH ×2 (06:39→13:48)
[2017-06-23] MEDS: INSULIN SLIDING SCALE (NOVOLOG) 1 VIAL SQ SCH ×4 (06:39→21:02)
[2017-06-23] MEDS: sitaGLIPtin PHOSPHATE 50 MG TABLET PO SCH (06:39)
[2017-06-23] MEDS ORDERED: INSULIN (NOVOLOG) ASPART 100 UNITS/ML 10ML VIAL ONE ×2 (06:52→11:22)
[2017-06-23 08:10] LABS: BASO % 0.2 % (0-2.0); HEMATOCRIT 35.4 % (32.4-45.2); HEMOGLOBIN 11.5 GM/dL (10.7-15.3); LYMPH % 12.1 % (8-40); MCH 27.5 pg (25.7-33.7); MCHC 32.6 g/dl (32.0-36.0); MEAN CELL VOLUME 84.5 fl (80-96); MEAN PLT VOLUME 9.9 fl (7.5-11.1); MONO % 2.8 % (3.8-10.2); NEUT % 84.9 % (42.8-82.8); PLATELET COUNT 156 K/MM3 (134-434); RBC 4.19 M/mm3 (3.60-5.2); RDW 20.7 % (11.6-15.6); WHITE BLOOD COUNT 2.9 K/mm3 (4.0-10.0)
[2017-06-23 08:37] LABS: ALBUMIN 2.9 g/dl (3.4-5.0); ALK PHOS 55 U/L (45-117); ANION GAP 11 (8-16); BILIRUBIN,TOTAL 0.6 mg/dL (0.2-1.0); BLOOD UREA NITROGEN 25 mg/dL (7-18); CALCIUM 8.8 mg/dL (8.5-10.1); CHLORIDE 100 mmol/L (98-107); CO2 28 mmol/L (21-32); CREATININE 0.9 mg/dL (0.55-1.02); GLUCOSE,RANDOM 226 mg/dL (74-106); POTASSIUM 4.2 mmol/L (3.5-5.1); SGOT/AST 26 U/L (15-37); SGPT/ALT 18 U/L (12-78); SODIUM 139 mmol/L (136-145); TOT PROT 6.6 g/dl (6.4-8.2)
[2017-06-23] MEDS: ALBUTEROL SO4 2.5/IPRATROPIUM 0.5 INH SOL 3 ML VIAL.NEB. NEB SCH ×4 (08:40→21:30)
--- NOTE | 2017-06-23 08:49 | HP ---
Admitting History and Physical - Admission History of Present Illness: 82yo female with h/o HTN, hyperlipidemia, DM, COPD, chronic hypoxic respiratory failure on home O2, CAD s/p stents, atrial fibrillation, LV diastolic dysfunction, severe mitral regurgitation who was admitted with worsening shortness of breath x "few days." Denies chest pain or palpitations. No fevers, chills or sweats but febrile to 102 on presentation. Reports her son experiencing a "croup cough" for the past 10 days. States her legs were more swollen but was told by her PMD to increase her diuretic dose with improvement in leg swelling but not her shortness of breath. +nonproductive cough and wheezing. Uses her Advair intermittently, but does use her nebulizers. She is a long time smoker, smoked for 60 years, quit 4 years ago. - Past Medical History Cardiovascular: Yes: AFIB, CAD (S/P STENTING), CHF, HTN, Hyperlipdemia Pulmonary: Yes: COPD, O2 Dependent Musculoskeletal: Yes: Chronic low back pain Endocrine: Yes: Diabetes Mellitus - Smoking History Smoking history: Former smoker Have you smoked in the past 12 months: No Aproximately how many cigarettes per day: 0 If you are a former smoker, when did you quit?: 6 - Alcohol/Substance Use Hx Alcohol Use: No Home Medications - Allergies Allergies/Adverse Reactions: Allergies Allergy/AdvReac Type Severity Reaction Status Date / Time No Known Allergies Allergy Verified 11/15/16 09:41 - Home Medications Home Medications: Ambulatory Orders Diltiazem Cd [Cardizem Cd -] 240 mg PO DAILY 11/15/16 Glyburide 5 mg PO BID 11/15/16 Metformin HCl 500 mg PO BID 11/15/16 Rosuvastatin [Crestor -] 20 mg PO DAILY 11/15/16 Valsartan 320 mg PO DAILY 11/15/16 Albuterol 2.5/Ipratropium 0.5 [Duoneb -] 1 amp NEB QIDR amp 11/19/16 Aspirin [ASA -] 81 mg PO DAILY #30 tab.chew 11/19/16 Furosemide [Lasix -] 60 mg PO DAILY tablet 11/19/16 Cholecalciferol (Vitamin D3) [Optimal D3] 50,000 unit PO WEEKLY 06/22/17 Dabigatran Etexilate Mesylate [Pradaxa -] 150 mg PO BID 06/22/17 Sitagliptin Phosphate [Januvia] 50 mg PO DAILY@0700 06/22/17 Review of Systems - Review of Systems Cardiovascular: reports: Edema, Shortness of Breath. denies: Chest Pain Respiratory: reports: Cough, SOB, SOB on Exertion, Wheezing Gastrointestinal: denies: Abdominal Pain Genitourinary: reports: No Symptoms Physical Examination Vital Signs: Vital Signs Temperature 97.5 F L 06/23/17 05:43 Pulse Rate 99 H 06/23/17 05:43 Respiratory Rate 22 06/23/17 05:43 Blood Pressure 157/94 06/23/17 05:43 O2 Sat by Pulse Oximetry (%) 91 L 06/22/17 21:00 Cardiovascular: Yes: Tachycardia, Pulse Irregular, S1, S2 Respiratory: Yes: On Nasal O2, Rhonchi, Wheezes Gastrointestinal: Yes: Normal Bowel Sounds, Soft Labs: CBC, BMP 06/23/17 06:00 06/23/17 06:30 Imaging - Results X-ray: Report Reviewed Problem List - Problems (1) COPD (chronic obstructive pulmonary disease) with acute bronchitis Assessment/Plan: IV ABX R/O PNA CT OF CHEST NEBS IV STEROIDS Code(s): J44.0 - CHRONIC OBSTRUCTIVE PULMON DISEASE W ACUTE LOWER RESP INFCT (2) COPD exacerbation Assessment/Plan: ABOVE Code(s): J44.1 - CHRONIC OBSTRUCTIVE PULMONARY DISEASE W (ACUTE) EXACERBATION (3) CAD S/P percutaneous coronary angioplasty Assessment/Plan: SAME MEDS EKG CARDIO Code(s): I25.10 - ATHSCL HEART DISEASE OF [place] CORONARY ARTERY W/O ANG PCTRS; Z98.61 - CORONARY ANGIOPLASTY STATUS (4) CHF (congestive heart failure) Assessment/Plan: IV LASIX MONITOR LABS CARDIO Code(s): I50.9 - HEART FAILURE, UNSPECIFIED (5) Diabetes Assessment/Plan: BGM INSULIN Code(s): E11.9 - TYPE 2 DIABETES MELLITUS WITHOUT COMPLICATIONS Qualifiers: Diabetes mellitus type: other specified (including YULISA) Diabetes mellitus airplane rigger insulin use: with airplane rigger use Diabetes mellitus complication status: with unspecified complications Qualified Code(s): E13.8 - Other specified diabetes mellitus with unspecified complications (6) Atrial fibrillation Assessment/Plan: ON PRADAXA EKG Code(s): I48.91 - UNSPECIFIED ATRIAL FIBRILLATION
[2017-06-23] MEDS ORDERED: cefTRIAXone SODIUM 1 GM VIAL ONE (08:53)
[2017-06-23] MEDS ORDERED: DEXTROSE 5%-WATER - 50 ML IVPB ONE (08:53)
[2017-06-23] MEDS ORDERED: FUROSEMIDE 20 MG TABLET (FP) PO SCH (10:00)
[2017-06-23] MEDS: CEFTRIAXONE 1 GM in DEXTROSE 5%-WATER - 50 ML IVPB SCH (11:00)
[2017-06-23] MEDS: VALSARTAN 160 MG TABLET (UD) PO SCH (11:00)
[2017-06-23] MEDS: ASPIRIN 81 MG CHEWABLE TABLETS PO SCH (11:00)
[2017-06-23] MEDS: DABIGATRAN ETEXILATE MESYLATE 150 MG CAPSULE PO SCH ×2 (11:00→21:03)
[2017-06-23] MEDS: AZITHROMYCIN IVPB 500 MG in DEXTROSE 5%-WATER - 250 ML IVPB SCH (11:31)
--- NOTE | 2017-06-23 12:03 | EKG ---
Test Reason : Blood Pressure : / mmHG Vent. Rate : 087 BPM Atrial Rate : 063 BPM P-R Int : 000 ms QRS Dur : 112 ms QT Int : 414 ms P-R-T Axes : 000 088 102 degrees QTc Int : 498 ms ATRIAL FIBRILLATION WITH PREMATURE VENTRICULAR OR ABERRANTLY CONDUCTED COMPLEXES ANTEROLATERAL INFARCT (CITED ON OR BEFORE 30-AUG-2016) ABNORMAL ECG Confirmed by SARAVANAN COPELAND MD ([id number]) on 06/23/2017 12:02:58 PM Referred By: Bhargav MARQUEZ Confirmed By:SARAVANAN COPELAND MD
--- NOTE | 2017-06-23 12:49 | PN ---
Progress Note (short form) - Note Progress Note: PULMONARY Breathing better. Less cough and wheezing. Fever curve trending down. CT chest done showing left basilar infiltrate. Last Vital Signs Temp Pulse Resp BP Pulse Ox 97.5 F L 99 H 22 157/94 91 L 06/23/17 05:43 06/23/17 05:43 06/23/17 05:43 06/23/17 05:43 06/22/17 21:00 Gen: less tachypneic Heart: RRR Lung: less rhonchi, wheezes Abd: soft, nontender Ext: no edema CBC, BMP 06/23/17 06:00 06/23/17 06:30 Active Medications Albuterol Sulfate (Ventolin 0.042trength) -) 1 amp NEB Q4H PRN PRN Reason: SHORT OF BREATH/WHEEZING Albuterol/Ipratropium (Duoneb -) 1 amp NEB RQID [facility] Last Admin: 06/22/17 20:37 Dose: 1 amp Aspirin (Asa -) 81 mg PO DAILY [facility] Last Admin: 06/23/17 11:00 Dose: 81 mg Dabigatran (Pradaxa -) 150 mg PO BID [facility] Last Admin: 06/23/17 11:00 Dose: 150 mg Diltiazem HCl (Cardizem Cd -) 240 mg PO DAILY [facility] Last Admin: 06/23/17 11:00 Dose: 240 mg Furosemide (Lasix Injection -) 40 mg IVPUSH BID@0600,1400 [facility] Last Admin: 06/23/17 06:39 Dose: 40 mg Glyburide (Diabeta -) 5 mg PO BIDAC [facility] Last Admin: 06/23/17 06:39 Dose: 5 mg Ceftriaxone Sodium 1 gm/ (Dextrose) 50 mls @ 100 mls/hr IVPB DAILY [facility] PRN Reason: Protocol Last Admin: 06/23/17 11:00 Dose: 100 mls/hr Azithromycin 500 mg/ Dextrose 250 mls @ 250 mls/hr IVPB DAILY [facility] Last Admin: 06/23/17 11:31 Dose: 250 mls/hr Insulin Aspart (Novolog Vial Sliding Scale -) 1 vial SQ ACHS [facility] PRN Reason: Protocol Last Admin: 06/23/17 11:31 Dose: 10 units Methylprednisolone Sodium Succinate (Solu-Medrol -) 40 mg IVPUSH Q8H-IV [facility] Last Admin: 06/23/17 11:00 Dose: 40 mg Non-Formulary Medication (Cholecalciferol (Vitamin D3) [Optimal D3]) 50,000 unit PO WEEKLY [facility] Rosuvastatin Calcium (Crestor -) 20 mg PO HS [facility] Last Admin: 06/22/17 21:43 Dose: 20 mg Sitagliptin Phosphate (Januvia -) 50 mg PO DAILY@0700 [facility] Last Admin: 06/23/17 06:39 Dose: 50 mg Valsartan (Diovan -) 320 mg PO DAILY [facility] Last Admin: 06/23/17 11:00 Dose: 320 mg A/P Pneumonia Acute COPD Exacerbation Chronic Hypoxic Respiratory Failure LV Diastolic Dysfunction Atrial Fibrillation Mitral Regurgitation CAD HTN DM Hyperlipidemia - continue antibiotics - will decrease medrol for better glucose control - inhaled bronchodilators - O2 to keep SpO2 >90% - rate control - continue anticoagulation Problem List - Problems (1) COPD exacerbation Code(s): J44.1 - CHRONIC OBSTRUCTIVE PULMONARY DISEASE W (ACUTE) EXACERBATION (2) Pneumonia Code(s): J18.9 - PNEUMONIA, UNSPECIFIED ORGANISM (3) CAD S/P percutaneous coronary angioplasty Code(s): I25.10 - ATHSCL HEART DISEASE OF [place] CORONARY ARTERY W/O ANG PCTRS; Z98.61 - CORONARY ANGIOPLASTY STATUS (4) Dyslipidemia Code(s): E78.5 - HYPERLIPIDEMIA, UNSPECIFIED (5) HTN (hypertension) Code(s): I10 - ESSENTIAL (PRIMARY) HYPERTENSION Qualifiers: Hypertension type: essential hypertension Qualified Code(s): I10 - Essential (primary) hypertension (6) Mitral valve regurgitation Code(s): I34.0 - NONRHEUMATIC MITRAL (VALVE) INSUFFICIENCY Qualifiers: Cardiac valve disease etiology: etiology unspecified Qualified Code(s): I34.0 - Nonrheumatic mitral (valve) insufficiency
--- NOTE | 2017-06-23 13:34 | PN ---
Progress Note (short form) - Note Progress Note: much more comfortable this am less sob chest ct with interstitial lung disease, acute LLL infiltrate Vital Signs Period Temp Pulse Resp BP Sys/Lam Pulse Ox Last 24 Hr 97.5 F-98.2 F 92-112 22-24 137-158/81-94 91-95 cor-rrr llungs decreased bs at bases abd soft,nt ext no edema CBC, BMP 06/23/17 06:00 06/23/17 06:30 Microbiology 06/22/17 14:05 Urine - Urine Clean Catch Urine Culture - Preliminary Pending Organism 06/22/17 10:13 Blood - Peripheral Venous Blood Culture - Preliminary NO GROWTH OBTAINED AFTER 24 HOURS, INCUBATION TO CONTINUE FOR 4 DAYS. 06/22/17 10:13 Blood - Peripheral Venous Blood Culture - Preliminary NO GROWTH OBTAINED AFTER 24 HOURS, INCUBATION TO CONTINUE FOR 4 DAYS. 06/22/17 14:05 Urine For Antigen Detection Legionella Antigen - Final 06/22/17 14:05 Urine For Antigen Detection Streptococcus pneumoniae Antigen (M - Final 06/22/17 14:05 Nasopharyngeal Swab Influenza Types A,B Antigen (CESAR) - Final 06/22/17 14:05 Nasopharyngeal Swab - Final a/p LLL pneumonia -CAP COPD CHF cultures influenza screen negative urinary antigens negative rocephin/zithromax-day #2- will switch to rocephin/doxy qtc 498 today Problem List - Problems (1) Fever Code(s): R50.9 - FEVER, UNSPECIFIED (2) Pneumonia Code(s): J18.9 - PNEUMONIA, UNSPECIFIED ORGANISM (3) COPD (chronic obstructive pulmonary disease) Code(s): J44.9 - CHRONIC OBSTRUCTIVE PULMONARY DISEASE, UNSPECIFIED Qualifiers: COPD type: COPD with acute exacerbation Qualified Code(s): J44.1 - Chronic obstructive pulmonary disease with (acute) exacerbation (4) CHF (congestive heart failure) Code(s): I50.9 - HEART FAILURE, UNSPECIFIED
--- NOTE | 2017-06-23 16:33 | CON.CARD ---
Consult Consult Specialty:: Cardiology Referred by:: Dr. Russell Reason for Consultation:: CHF and SOB - History of Present Illness Chief Complaint: Worsening shortness of breath History of Present Illness: 82y year-old woman with a PMHx of HTN, hyperlipidemia, DM, CAD, s/p stenting in the past, CHF, severe mitral valve regurgitation, chronic atrial fibrillationCOPD, chronic hypoxic respiratory failure on home O2 admitted 2017 with worsening shortness of breath for several days. The patient has been experiencing worsening SOB with markedly decreased exercise tolerance for several days. She reports no chest pain, palpitation, dizziness, syncope or near syncope. She has more leg swelling and was told to increase her diuretic dose with improvement in leg swelling but not her shortness of breath. +nonproductive cough and wheezing. CXR and CT chest 06/22/2017 showed cardiomegaly and pulmonary congestion. Seen by pulmonary. IV Solumedrol, ABx and Lasix started. The patient has improved SOB. - History Source History Provided By: Patient Limitations to Obtaining History: No Limitations - Past Medical History Cardio/Vascular: Yes: AFIB, CAD (S/P STENTING), CHF, HTN, Hyperlipdemia Pulmonary: Yes: COPD, O2 Dependent Musculoskeletal: Yes: Chronic low back pain Endocrine: Yes: Diabetes Mellitus - Alcohol/Substance Use Hx Alcohol Use: No - Smoking History Smoking history: Former smoker Have you smoked in the past 12 months: No Aproximately how many cigarettes per day: 0 If you are a former smoker, when did you quit?: 6 Home Medications - Allergies Allergies/Adverse Reactions: Allergies Allergy/AdvReac Type Severity Reaction Status Date / Time No Known Allergies Allergy Verified 11/15/16 09:41 - Home Medications Home Medications: Ambulatory Orders Diltiazem Cd [Cardizem Cd -] 240 mg PO DAILY 11/15/16 Glyburide 5 mg PO BID 11/15/16 Metformin HCl 500 mg PO BID 11/15/16 Rosuvastatin [Crestor -] 20 mg PO DAILY 11/15/16 Valsartan 320 mg PO DAILY 11/15/16 Albuterol 2.5/Ipratropium 0.5 [Duoneb -] 1 amp NEB QIDR amp 11/19/16 Aspirin [ASA -] 81 mg PO DAILY #30 tab.chew 11/19/16 Furosemide [Lasix -] 60 mg PO DAILY tablet 11/19/16 Cholecalciferol (Vitamin D3) [Optimal D3] 50,000 unit PO WEEKLY 06/22/17 Dabigatran Etexilate Mesylate [Pradaxa -] 150 mg PO BID 06/22/17 Sitagliptin Phosphate [Januvia] 50 mg PO DAILY@0700 06/22/17 Review of Systems - Review of Systems Constitutional: reports: No Symptoms Eyes: reports: No Symptoms HENT: reports: No Symptoms Neck: reports: No Symptoms Cardiovascular: reports: Shortness of Breath Respiratory: reports: Cough, SOB Gastrointestinal: reports: No Symptoms Genitourinary: reports: No Symptoms Breasts: reports: No Symptoms Reported Musculoskeletal: reports: No Symptoms Integumentary: reports: No Symptoms Neurological: reports: No Symptoms Endocrine: reports: No Symptoms Hematology/Lymphatic: reports: No Symptoms Psychiatric: reports: No Symptoms Vital Signs: Vital Signs Temperature 97.3 F L 06/23/17 13:51 Pulse Rate 91 H 06/23/17 13:51 Respiratory Rate 22 06/23/17 13:51 Blood Pressure 127/78 06/23/17 13:51 O2 Sat by Pulse Oximetry (%) 92 L 06/23/17 09:00 General: Well developed. Chronic ill. No acute distress. Head: Normocephalic. Atraumatic, Eyes: PERRLA, EOMI. Sclerae anicteric. Conjunctivae clear. Neck: Supple. (+) JVD. No bruits. Heart: Normal S1, S2: Irregularly regular rhythm and rate. II/ Holosystolic murmur. No gallop or rub. Lungs: Symmetrical poor air entry. Markedly decreased breath sound and prolonged expiration. No wheezing or rhonchi. Abdomen: Soft. Bowel sound positive. Non tender. No masses. Extremities: 1-2+ edema. No clubbing or cyanosis. PD 2+, equal bilaterally. Neuro: Intact, no focal findings. AAO X3. - Other Data Labs, Other Data: CBC, BMP 06/23/17 06:00 06/23/17 06:30 INR, PTT INR 1.19 (0.82-1.09) H 06/22/17 10:13 Troponin, BNP 06/23/17 09:30 Troponin I 0.04 Troponin, BNP 06/23/17 09:30 Troponin I 0.04 Imaging - Results EKG: Image Reviewed (ECG 06/23/2017: Atrial fibrillation with controlled VR at 87 BPM. Normal axis. Single VPCs.) Assessment/Plan 82y year-old woman with a PMHx of HTN, hyperlipidemia, DM, CAD, s/p stenting in the past, CHF, severe mitral valve regurgitation, chronic atrial fibrillationCOPD, chronic hypoxic respiratory failure on home O2 admitted 2017 with worsening shortness of breath for several days. CXR and CT chest 06/22/2017 showed cardiomegaly and pulmonary congestion. Seen by pulmonary. IV Solumedrol, ABx and Lasix started. The patient has improved SOB. 1) CHF with preserved LV systolic function and severe MR from echocardiogram on 09/02/2016. Continue IV Lasix 40 mg BID to keep Os> Is. Monitor lytes and renal function. She was seen by Dr. Mukherjee for out-pt cardiac follow up. [facility] should be considered in future as out-patient for severe mitral regurgitation. 2) Chronic atrial fibrillation. Remains in afib with controlled VR. Continue Dilt 240 mg daily. Continue Pradaxa 150 mg BID for stroke prevention. We will follow with you.
[2017-06-23] MEDS ORDERED: DOCUSATE SODIUM 100 MG CAPSULE (FP) PO ONE (20:58)
[2017-06-23] MEDS: ROSUVASTATIN CA 20 MG TABLET (FP) PO SCH (21:03)
[2017-06-24] MEDS: sitaGLIPtin PHOSPHATE 50 MG TABLET PO SCH (06:21)
[2017-06-24] MEDS: FUROSEMIDE 40 MG/4 ML INJECTABLE VIAL IVPUSH SCH (06:21)
[2017-06-24] MEDS: INSULIN SLIDING SCALE (NOVOLOG) 1 VIAL SQ SCH ×4 (06:22→21:17)
[2017-06-24] MEDS: glyBURIDE 5 MG TABLET (UD) PO SCH ×2 (06:22→16:29)
[2017-06-24] MEDS ORDERED: INSULIN (NOVOLOG) ASPART 100 UNITS/ML 10ML VIAL ONE ×2 (06:30→20:52)
[2017-06-24] MEDS: ALBUTEROL SO4 2.5/IPRATROPIUM 0.5 INH SOL 3 ML VIAL.NEB. NEB SCH ×4 (07:25→20:46)
[2017-06-24 07:31] LABS: BASO % 0.1 % (0-2.0); HEMATOCRIT 33.3 % (32.4-45.2); LYMPH % 6.3 % (8-40); MCH 27.9 pg (25.7-33.7); MCHC 32.9 g/dl (32.0-36.0); MEAN CELL VOLUME 84.7 fl (80-96); MEAN PLT VOLUME 9.8 fl (7.5-11.1); MONO % 5.1 % (3.8-10.2); NEUT % 88.5 % (42.8-82.8); PLATELET COUNT 159 K/MM3 (134-434); RBC 3.93 M/mm3 (3.60-5.2); RDW 20.8 % (11.6-15.6); WHITE BLOOD COUNT 5.5 K/mm3 (4.0-10.0)
[2017-06-24 08:24] LABS: ALBUMIN 2.9 g/dl (3.4-5.0); ANION GAP 10 (8-16); BLOOD UREA NITROGEN 36 mg/dL (7-18); CALCIUM 8.4 mg/dL (8.5-10.1); CHLORIDE 99 mmol/L (98-107); CO2 29 mmol/L (21-32); CREATININE 1.4 mg/dL (0.55-1.02); POTASSIUM 3.9 mmol/L (3.5-5.1); SGOT/AST 25 U/L (15-37); SGPT/ALT 23 U/L (12-78); SODIUM 138 mmol/L (136-145)
[2017-06-24 08:26] LABS: ALK PHOS 55 U/L (45-117); BILIRUBIN,TOTAL 0.4 mg/dL (0.2-1.0); TOT PROT 6.3 g/dl (6.4-8.2)
[2017-06-24 08:38] LABS: GLUCOSE,RANDOM 309 mg/dL (74-106)
[2017-06-24] MEDS ORDERED: PT OWN MED DRAWER 7, Y5N ONE (09:04)
[2017-06-24] MEDS ORDERED: DEXTROSE 5%-WATER - 50 ML IVPB ONE (09:05)
[2017-06-24] MEDS ORDERED: cefTRIAXone SODIUM 1 GM VIAL ONE (09:05)
[2017-06-24] MEDS: CEFTRIAXONE 1 GM in DEXTROSE 5%-WATER - 50 ML IVPB SCH (09:08)
[2017-06-24] MEDS: DOXYCYCLINE HYCLATE 100 MG CAPSULE PO SCH ×2 (09:09→17:39)
[2017-06-24] MEDS: VALSARTAN 160 MG TABLET (UD) PO SCH (09:09)
[2017-06-24] MEDS: methylPREDNISolone NA SUCC 40 MG/1 ML VIAL IVPUSH SCH (09:10)
[2017-06-24] MEDS: DABIGATRAN ETEXILATE MESYLATE 150 MG CAPSULE PO SCH ×2 (09:10→21:15)
[2017-06-24] MEDS: ASPIRIN 81 MG CHEWABLE TABLETS PO SCH (09:10)
--- NOTE | 2017-06-24 10:04 | PN ---
Progress Note, Physician Chief Complaint: ID Very stable Afebrile Steroids Doxy IV & Ceftriaxone Previously 102 - Current Medication List Current Medications: Active Medications Albuterol Sulfate (Ventolin 0.042trength) -) 1 amp NEB Q4H PRN PRN Reason: SHORT OF BREATH/WHEEZING Albuterol/Ipratropium (Duoneb -) 1 amp NEB RQID [facility] Last Admin: 06/24/17 07:25 Dose: 1 amp Aspirin (Asa -) 81 mg PO DAILY [facility] Last Admin: 06/24/17 09:10 Dose: 81 mg Dabigatran (Pradaxa -) 150 mg PO BID [facility] Last Admin: 06/24/17 09:10 Dose: 150 mg Diltiazem HCl (Cardizem Cd -) 240 mg PO DAILY [facility] Last Admin: 06/24/17 09:10 Dose: 240 mg Doxycycline Hyclate (Vibramycin -) 100 mg PO BID@1000,1800 [facility] Last Admin: 06/24/17 09:09 Dose: 100 mg Furosemide (Lasix Injection -) 40 mg IVPUSH BID@0600,1400 [facility] Last Admin: 06/24/17 06:21 Dose: 40 mg Glyburide (Diabeta -) 5 mg PO BIDAC [facility] Last Admin: 06/24/17 06:22 Dose: 5 mg Ceftriaxone Sodium 1 gm/ (Dextrose) 50 mls @ 100 mls/hr IVPB DAILY [facility] PRN Reason: Protocol Last Admin: 06/24/17 09:08 Dose: 100 mls/hr Insulin Aspart (Novolog Vial Sliding Scale -) 1 vial SQ ACHS [facility] PRN Reason: Protocol Last Admin: 06/24/17 06:22 Dose: 6 units Methylprednisolone Sodium Succinate (Solu-Medrol -) 30 mg IVPUSH BID [facility] Last Admin: 06/24/17 09:10 Dose: 30 mg Non-Formulary Medication (Cholecalciferol (Vitamin D3) [Optimal D3]) 50,000 unit PO WEEKLY [facility] Rosuvastatin Calcium (Crestor -) 20 mg PO HS [facility] Last Admin: 06/23/17 21:03 Dose: 20 mg Sitagliptin Phosphate (Januvia -) 50 mg PO DAILY@0700 [facility] Last Admin: 06/24/17 06:21 Dose: 50 mg Valsartan (Diovan -) 320 mg PO DAILY [facility] Last Admin: 06/24/17 09:09 Dose: 320 mg - Objective Vital Signs: Vital Signs Temperature 97.9 F 06/24/17 05:40 Pulse Rate 94 H 06/24/17 05:40 Respiratory Rate 20 06/24/17 05:40 Blood Pressure 143/74 06/24/17 05:40 O2 Sat by Pulse Oximetry (%) 94 L 06/23/17 20:55 Constitutional: Yes: Other (ambulatory) HENT: Yes: WNL, Atraumatic Neck: Yes: Supple Cardiovascular: Yes: S1, S2 Respiratory: Yes: Diminished Gastrointestinal: Yes: Soft. No: Tenderness Labs: CBC, BMP 06/24/17 06:00 06/24/17 06:00 INR, PTT INR 1.19 (0.82-1.09) H 06/22/17 10:13 Assessment/Plan Microbiology 06/22/17 14:05 Urine For Antigen Detection Legionella Antigen - Final 06/22/17 14:05 Urine For Antigen Detection Streptococcus pneumoniae Antigen (M - Final 06/22/17 14:05 Urine - Urine Clean Catch Urine Culture - Final Diphtheroid/Corynebacterium 06/22/17 10:13 Blood - Peripheral Venous Blood Culture - Preliminary NO GROWTH OBTAINED AFTER 24 HOURS, INCUBATION TO CONTINUE FOR 4 DAYS. 06/22/17 10:13 Blood - Peripheral Venous Blood Culture - Preliminary NO GROWTH OBTAINED AFTER 24 HOURS, INCUBATION TO CONTINUE FOR 4 DAYS. Laboratory Tests 06/24/17 06/24/17 06:00 06:00 WBC 5.5 D Hgb 11.0 Hct 33.3 Plt Count 159 Creatinine 1.4 H Assessment Interstitial lung disease superimposed acute infiltrate. COPD Plan Continue IV therapy for today Cefriaxone Doxy can be given orally now Sandra PACHECO
[2017-06-24] MEDS ORDERED: SODIUM CHLORIDE 1,000 ML IV SCH (10:30)
--- NOTE | 2017-06-24 10:37 | PN ---
Progress Note, Physician Chief Complaint: Pneumonia History of Present Illness: NAD, in bed, IV abx ID consult Pulmonary on board - Current Medication List Current Medications: Active Medications Albuterol Sulfate (Ventolin 0.042trength) -) 1 amp NEB Q4H PRN PRN Reason: SHORT OF BREATH/WHEEZING Albuterol/Ipratropium (Duoneb -) 1 amp NEB RQID [facility] Last Admin: 06/24/17 07:25 Dose: 1 amp Aspirin (Asa -) 81 mg PO DAILY [facility] Last Admin: 06/24/17 09:10 Dose: 81 mg Dabigatran (Pradaxa -) 150 mg PO BID [facility] Last Admin: 06/24/17 09:10 Dose: 150 mg Diltiazem HCl (Cardizem Cd -) 240 mg PO DAILY [facility] Last Admin: 06/24/17 09:10 Dose: 240 mg Doxycycline Hyclate (Vibramycin -) 100 mg PO BID@1000,1800 [facility] Last Admin: 06/24/17 09:09 Dose: 100 mg Furosemide (Lasix Injection -) 40 mg IVPUSH BID@0600,1400 [facility] Last Admin: 06/24/17 06:21 Dose: 40 mg Glyburide (Diabeta -) 5 mg PO BIDAC [facility] Last Admin: 06/24/17 06:22 Dose: 5 mg Ceftriaxone Sodium 1 gm/ (Sodium Chloride) 100 mls @ 200 mls/hr IVPB DAILY [facility] PRN Reason: Protocol Insulin Aspart (Novolog Vial Sliding Scale -) 1 vial SQ ACHS [facility] PRN Reason: Protocol Last Admin: 06/24/17 06:22 Dose: 6 units Methylprednisolone Sodium Succinate (Solu-Medrol -) 30 mg IVPUSH BID [facility] Last Admin: 06/24/17 09:10 Dose: 30 mg Non-Formulary Medication (Cholecalciferol (Vitamin D3) [Optimal D3]) 50,000 unit PO WEEKLY [facility] Rosuvastatin Calcium (Crestor -) 20 mg PO HS [facility] Last Admin: 06/23/17 21:03 Dose: 20 mg Sitagliptin Phosphate (Januvia -) 50 mg PO DAILY@0700 [facility] Last Admin: 06/24/17 06:21 Dose: 50 mg Valsartan (Diovan -) 320 mg PO DAILY [facility] Last Admin: 06/24/17 09:09 Dose: 320 mg - Objective Vital Signs: Vital Signs Temperature 97.9 F 04/26/18 05:40 Pulse Rate 94 H 06/24/17 05:40 Respiratory Rate 20 06/24/17 05:40 Blood Pressure 143/74 06/24/17 05:40 O2 Sat by Pulse Oximetry (%) 94 L 06/23/17 20:55 Constitutional: Yes: Well Nourished, No Distress, Calm Cardiovascular: Yes: Regular Rate and Rhythm Respiratory: Yes: Regular Gastrointestinal: Yes: Normal Bowel Sounds, Soft Musculoskeletal: Yes: WNL Extremities: Yes: WNL Edema: No Peripheral Pulses WNL: Yes Neurological: Yes: Alert, Oriented Psychiatric: Yes: Alert, Oriented Labs: CBC, BMP 06/24/17 06:00 06/24/17 06:00 INR, PTT INR 1.19 (0.82-1.09) H 06/22/17 10:13 Problem List - Problems (1) Atrial fibrillation Assessment/Plan: -on buttermaker continuous churn AC -pradaxa -controlled Code(s): I48.91 - UNSPECIFIED ATRIAL FIBRILLATION Qualifiers: Atrial fibrillation type: chronic Qualified Code(s): I48.2 - Chronic atrial fibrillation (2) COPD exacerbation Assessment/Plan: -bronchodilators -tapering steroids -nasal O2 PRN -Pulmonary consult Code(s): J44.1 - CHRONIC OBSTRUCTIVE PULMONARY DISEASE W (ACUTE) EXACERBATION (3) Pneumonia Assessment/Plan: LLL CAP -ID consult -IV abx -PO abx -switch to PO tomorrow Code(s): J18.9 - PNEUMONIA, UNSPECIFIED ORGANISM (4) Diabetes mellitus, insulin dependent (IDDM), uncontrolled Assessment/Plan: -IV abx to be mixed in NS-done -Tapering steroids -A1c pending -on Januvia and glyburide -Endocrine consult -insulin sliding scale -diabetic diet Code(s): E10.65 - TYPE 1 DIABETES MELLITUS WITH HYPERGLYCEMIA Qualifiers: Diabetes mellitus complication status: with unspecified complications Qualified Code(s): E10.8 - Type 1 diabetes mellitus with unspecified complications Assessment/Plan see problem list Physical therapy
--- NOTE | 2017-06-24 10:44 | PN ---
Progress Note (short form) - Note Progress Note: Breathing feels a little better. Less cough and no wheezing. No fever. Intake & Output 06/21/17 06/22/17 06/23/17 06/24/17 23:59 23:59 23:59 23:59 Intake Total 150 500 Balance 150 500 Weight 155 lb 141 lb 1 oz 146 lb 2 oz Last Vital Signs Temp Pulse Resp BP Pulse Ox 97.9 F 94 H 20 143/74 94 L 06/24/17 05:40 06/24/17 05:40 06/24/17 05:40 06/24/17 05:40 06/23/17 20:55 Active Medications Albuterol Sulfate (Ventolin 0.042trength) -) 1 amp NEB Q4H PRN PRN Reason: SHORT OF BREATH/WHEEZING Albuterol/Ipratropium (Duoneb -) 1 amp NEB RQID [facility] Last Admin: 06/24/17 07:25 Dose: 1 amp Aspirin (Asa -) 81 mg PO DAILY [facility] Last Admin: 06/24/17 09:10 Dose: 81 mg Dabigatran (Pradaxa -) 150 mg PO BID [facility] Last Admin: 06/24/17 09:10 Dose: 150 mg Diltiazem HCl (Cardizem Cd -) 240 mg PO DAILY [facility] Last Admin: 06/24/17 09:10 Dose: 240 mg Doxycycline Hyclate (Vibramycin -) 100 mg PO BID@1000,1800 [facility] Last Admin: 06/24/17 09:09 Dose: 100 mg Furosemide (Lasix Injection -) 40 mg IVPUSH DAILY [facility] Glyburide (Diabeta -) 5 mg PO BIDAC [facility] Last Admin: 06/24/17 06:22 Dose: 5 mg Ceftriaxone Sodium 1 gm/ (Sodium Chloride) 100 mls @ 200 mls/hr IVPB DAILY [facility] PRN Reason: Protocol Sodium Chloride (Normal Saline -) 1,000 mls @ 50 mls/hr IV ASDIR [facility] Stop: 06/25/17 10:30 Insulin Aspart (Novolog Vial Sliding Scale -) 1 vial SQ ACHS [facility] PRN Reason: Protocol Last Admin: 06/24/17 06:22 Dose: 6 units Non-Formulary Medication (Cholecalciferol (Vitamin D3) [Optimal D3]) 50,000 unit PO WEEKLY [facility] Prednisone (Deltasone -) 30 mg PO BID [facility] Rosuvastatin Calcium (Crestor -) 20 mg PO HS [facility] Last Admin: 06/23/17 21:03 Dose: 20 mg Sitagliptin Phosphate (Januvia -) 50 mg PO DAILY@0700 [facility] Last Admin: 06/24/17 06:21 Dose: 50 mg Valsartan (Diovan -) 320 mg PO DAILY [facility] Last Admin: 06/24/17 09:09 Dose: 320 mg Gen: Less tachypneic Heart: RRR Lung: less rhonchi, wheezes Abd: soft, nontender Ext: no edema Laboratory Results - last 24 hr 06/22/17 06/22/17 06/23/17 10:13 10:13 10:56 WBC RBC Hgb Hct MCV MCH MCHC RDW Plt Count MPV Neutrophils % Lymphocytes % Monocytes % Eosinophils % Basophils % VBG pH 7.40 D POC VBG pCO2 50.1 POC VBG pO2 27.2 L D Mixed VBG HCO3 30.3 H Sodium Potassium Chloride Carbon Dioxide Anion Gap BUN Creatinine Creat Clearance w eGFR POC Glucometer 410 Random Glucose Lactic Acid 1.5 Calcium Total Bilirubin AST ALT Alkaline Phosphatase Total Protein Albumin 06/23/17 06/23/17 06/24/17 16:45 21:00 06:00 WBC 5.5 D RBC 3.93 Hgb 11.0 Hct 33.3 MCV 84.7 MCH 27.9 MCHC 32.9 RDW 20.8 H Plt Count 159 MPV 9.8 Neutrophils % 88.5 H Lymphocytes % 6.3 L D Monocytes % 5.1 D Eosinophils % 0.0 Basophils % 0.1 VBG pH POC VBG pCO2 POC VBG pO2 Mixed VBG HCO3 Sodium Potassium Chloride Carbon Dioxide Anion Gap BUN Creatinine Creat Clearance w eGFR POC Glucometer 432 365 Random Glucose Lactic Acid Calcium Total Bilirubin AST ALT Alkaline Phosphatase Total Protein Albumin 06/24/17 06:00 WBC RBC Hgb Hct MCV MCH MCHC RDW Plt Count MPV Neutrophils % Lymphocytes % Monocytes % Eosinophils % Basophils % VBG pH POC VBG pCO2 POC VBG pO2 Mixed VBG HCO3 Sodium 138 Potassium 3.9 Chloride 99 Carbon Dioxide 29 Anion Gap 10 BUN 36 H Creatinine 1.4 H Creat Clearance w eGFR 35.82 POC Glucometer Random Glucose 309 H* Lactic Acid Calcium 8.4 L Total Bilirubin 0.4 D AST 25 ALT 23 Alkaline Phosphatase 55 Total Protein 6.3 L Albumin 2.9 L Problem List - Problems (1) COPD exacerbation Code(s): J44.1 - CHRONIC OBSTRUCTIVE PULMONARY DISEASE W (ACUTE) EXACERBATION (2) Pneumonia Code(s): J18.9 - PNEUMONIA, UNSPECIFIED ORGANISM (3) CAD S/P percutaneous coronary angioplasty Code(s): I25.10 - ATHSCL HEART DISEASE OF [place] CORONARY ARTERY W/O ANG PCTRS; Z98.61 - CORONARY ANGIOPLASTY STATUS (4) Dyslipidemia Code(s): E78.5 - HYPERLIPIDEMIA, UNSPECIFIED (5) HTN (hypertension) Code(s): I10 - ESSENTIAL (PRIMARY) HYPERTENSION Qualifiers: Hypertension type: essential hypertension Qualified Code(s): I10 - Essential (primary) hypertension (6) Mitral valve regurgitation Code(s): I34.0 - NONRHEUMATIC MITRAL (VALVE) INSUFFICIENCY Qualifiers: Cardiac valve disease etiology: etiology unspecified Qualified Code(s): I34.0 - Nonrheumatic mitral (valve) insufficiency IMP: Pneumonia Acute COPD Exacerbation Likely component of chronic ILD (Has CT from 2012 revealing mild changes) Chronic Hypoxic Respiratory Failure LV Diastolic Dysfunction Atrial Fibrillation Mitral Regurgitation CAD HTN DM Hyperlipidemia - continue antibiotics - Medrol - inhaled bronchodilators - O2 to keep SpO2 >90% - rate control - continue anticoagulation Dr Lubin
[2017-06-24 14:16] LABS: CHOLESTEROL 168 mg/dL (50-200); HDL CHOLESTEROL 72 mg/dL (40-60); TRIGLYCERIDES 67 mg/dL (35-160)
--- NOTE | 2017-06-24 14:48 | PN ---
Progress Note, Physician Chief Complaint: Patient has improved SOB at rest. She denies palpitation or chest pain. History of Present Illness: 82y year-old woman with a PMHx of HTN, hyperlipidemia, DM, CAD, s/p stenting in the past, CHF, severe mitral valve regurgitation, chronic atrial fibrillationCOPD, chronic hypoxic respiratory failure on home O2 admitted 2017 with worsening shortness of breath for several days. CXR and CT chest 06/22/2017 showed cardiomegaly and pulmonary congestion. Seen by pulmonary. IV Solumedrol, ABx and Lasix started. The patient has improved SOB. - Current Medication List Current Medications: Active Medications Albuterol Sulfate (Ventolin 0.042trength) -) 1 amp NEB Q4H PRN PRN Reason: SHORT OF BREATH/WHEEZING Albuterol/Ipratropium (Duoneb -) 1 amp NEB RQID [facility] Last Admin: 06/24/17 11:15 Dose: 1 amp Aspirin (Asa -) 81 mg PO DAILY [facility] Last Admin: 06/24/17 09:10 Dose: 81 mg Dabigatran (Pradaxa -) 150 mg PO BID [facility] Last Admin: 06/24/17 09:10 Dose: 150 mg Diltiazem HCl (Cardizem Cd -) 240 mg PO DAILY [facility] Last Admin: 06/24/17 09:10 Dose: 240 mg Doxycycline Hyclate (Vibramycin -) 100 mg PO BID@1000,1800 [facility] Last Admin: 06/24/17 09:09 Dose: 100 mg Furosemide (Lasix Injection -) 40 mg IVPUSH DAILY [facility] Glyburide (Diabeta -) 5 mg PO BIDAC [facility] Last Admin: 06/24/17 06:22 Dose: 5 mg Ceftriaxone Sodium 1 gm/ (Sodium Chloride) 100 mls @ 200 mls/hr IVPB DAILY [facility] PRN Reason: Protocol Sodium Chloride (Normal Saline -) 1,000 mls @ 50 mls/hr IV ASDIR [facility] Stop: 06/25/17 10:30 Last Admin: 06/24/17 11:58 Dose: 50 mls/hr Insulin Aspart (Novolog Vial Sliding Scale -) 1 vial SQ ACHS [facility] PRN Reason: Protocol Last Admin: 06/24/17 11:11 Dose: 2 units Non-Formulary Medication (Cholecalciferol (Vitamin D3) [Optimal D3]) 50,000 unit PO WEEKLY [facility] Prednisone (Deltasone -) 30 mg PO BID [facility] Rosuvastatin Calcium (Crestor -) 20 mg PO HS [facility] Last Admin: 06/23/17 21:03 Dose: 20 mg Sitagliptin Phosphate (Januvia -) 50 mg PO DAILY@0700 [facility] Last Admin: 06/24/17 06:21 Dose: 50 mg Valsartan (Diovan -) 320 mg PO DAILY [facility] Last Admin: 06/24/17 09:09 Dose: 320 mg - Objective Vital Signs: Vital Signs Temperature 97.4 F L 06/24/17 13:47 Pulse Rate 80 06/24/17 13:47 Respiratory Rate 20 06/24/17 13:47 Blood Pressure 134/62 06/24/17 13:47 O2 Sat by Pulse Oximetry (%) 95 06/24/17 09:00 General: Well developed. Chronic ill. No acute distress. Head: Normocephalic. Atraumatic, Eyes: PERRLA, EOMI. Sclerae anicteric. Conjunctivae clear. Neck: Supple. (+) JVD. No bruits. Heart: Normal S1, S2: Irregularly regular rhythm and rate. II/ Holosystolic murmur. No gallop or rub. Lungs: Symmetrical poor air entry. Markedly decreased breath sound and prolonged expiration. No wheezing or rhonchi. Abdomen: Soft. Bowel sound positive. Non tender. No masses. Extremities: Trace edema. No clubbing or cyanosis. PD 2+, equal bilaterally. Neuro: Intact, no focal findings. AAO X3. Labs: CBC, BMP 06/24/17 06:00 06/24/17 06:00 INR, PTT INR 1.19 (0.82-1.09) H 06/22/17 10:13 Assessment/Plan 82y year-old woman with a PMHx of HTN, hyperlipidemia, DM, CAD, s/p stenting in the past, CHF, severe mitral valve regurgitation, chronic atrial fibrillationCOPD, chronic hypoxic respiratory failure on home O2 admitted 2017 with worsening shortness of breath for several days. CXR and CT chest 06/22/2017 showed cardiomegaly and pulmonary congestion. Seen by pulmonary. IV Solumedrol, ABx and Lasix started. The patient has improved SOB. 1) Acute diastolic CHF, exacerbated by severe mitral regurgitation. Fluid overload improved. May change Lasix to PO 40 mg BID. Monitor lytes and renal function. She was seen by Dr. Mukherjee for out-pt cardiac follow up. [facility] should be considered in future as out-patient for severe mitral regurgitation. 2) Chronic atrial fibrillation. Remains in afib with controlled VR. Continue Dilt 240 mg daily. Continue Pradaxa 150 mg BID for stroke prevention.
[2017-06-24] MEDS: predniSONE 10 MG TABLET (UD) PO SCH (21:15)
[2017-06-24] MEDS: DOCUSATE SODIUM 100 MG CAPSULE (FP) PO SCH (21:15)
[2017-06-24] MEDS: ROSUVASTATIN CA 20 MG TABLET (FP) PO SCH (21:16)
[2017-06-24] MEDS ORDERED: INSULIN (LEVEMIR) 100 UNITS/ML UNITS SQ ONE (22:00)
--- NOTE | 2017-06-24 22:30 | CONSULT ---
Consult Consult Specialty:: endocrine Referred by:: rufino gaines np Reason for Consultation:: diabetes mellitus hyperglycemia - History of Present Illness Chief Complaint: high blood sugars History of Present Illness: 82 yo F with a significant past medical history of COPD AND CHF, CAD (S/P STENTING), HTN, Hyperlipidemia, COPD, O2 Dependent, Chronic low back pain, Diabetes Mellitus who was brought by EMS to the ED with complaints of SOB worsening over the past few days. admitted with chf and copd excarcerbation, with hyperglycemia and insulin resistance.she takes pills to control blood sugars yet they always high when she takes prednisone - History Source History Provided By: Patient - Past Medical History Cardio/Vascular: Yes: AFIB, CAD (S/P STENTING), CHF, HTN, Hyperlipdemia Pulmonary: Yes: COPD, O2 Dependent Musculoskeletal: Yes: Chronic low back pain Endocrine: Yes: Diabetes Mellitus - Alcohol/Substance Use Hx Alcohol Use: No - Smoking History Smoking history: Former smoker Have you smoked in the past 12 months: No Aproximately how many cigarettes per day: 0 If you are a former smoker, when did you quit?: 6 Home Medications - Allergies Allergies/Adverse Reactions: Allergies Allergy/AdvReac Type Severity Reaction Status Date / Time No Known Allergies Allergy Verified 11/15/16 09:41 - Home Medications Home Medications: Ambulatory Orders Diltiazem Cd [Cardizem Cd -] 240 mg PO DAILY 11/15/16 Glyburide 5 mg PO BID 11/15/16 Metformin HCl 500 mg PO BID 11/15/16 Rosuvastatin [Crestor -] 20 mg PO DAILY 11/15/16 Valsartan 320 mg PO DAILY 11/15/16 Albuterol 2.5/Ipratropium 0.5 [Duoneb -] 1 amp NEB QIDR amp 11/19/16 Aspirin [ASA -] 81 mg PO DAILY #30 tab.chew 11/19/16 Furosemide [Lasix -] 60 mg PO DAILY tablet 11/19/16 Cholecalciferol (Vitamin D3) [Optimal D3] 50,000 unit PO WEEKLY 06/22/17 Dabigatran Etexilate Mesylate [Pradaxa -] 150 mg PO BID 06/22/17 Sitagliptin Phosphate [Januvia] 50 mg PO DAILY@0700 06/22/17 Review of Systems - Review of Systems Constitutional: reports: Lethargy, Weakness Eyes: reports: No Symptoms HENT: reports: Nasal Congestion Neck: reports: No Symptoms Cardiovascular: reports: Palpitations, Shortness of Breath Respiratory: reports: Exercise Intolerance Gastrointestinal: reports: Bloating Genitourinary: reports: No Symptoms Breasts: reports: No Symptoms Reported Musculoskeletal: reports: Extremity Pain, Muscle Pain, Muscle Cramps, Muscle Weakness Integumentary: reports: No Symptoms Neurological: reports: Numbness, Unsteady Gait, Weakness Endocrine: reports: Unexplained Weight Gain Physical Exam Vital Signs: Vital Signs Temperature 98.1 F 06/24/17 21:03 Pulse Rate 85 06/24/17 21:03 Respiratory Rate 20 06/24/17 21:03 Blood Pressure 128/65 06/24/17 21:03 O2 Sat by Pulse Oximetry (%) 94 L 06/24/17 21:00 Constitutional: Yes: Anxious Eyes: Yes: EOM Intact HENT: Yes: Normocephalic Neck: Yes: Trachea Midline Cardiovascular: Yes: Regular Rate and Rhythm Respiratory: Yes: Poor Air Entry, Rales Gastrointestinal: Yes: Normal Bowel Sounds ...Rectal Exam: Yes: Deferred Renal/: Yes: WNL Breast(s): Yes: WNL Musculoskeletal: Yes: Back Pain, Joint Swelling, Muscle Weakness Extremities: Yes: WNL Neurological: Yes: Alert, Oriented Labs: CBC, BMP 06/24/17 06:00 Problem List - Problems (1) Atrial fibrillation Code(s): I48.91 - UNSPECIFIED ATRIAL FIBRILLATION Qualifiers: Atrial fibrillation type: chronic Qualified Code(s): I48.2 - Chronic atrial fibrillation (2) COPD (chronic obstructive pulmonary disease) with acute bronchitis Code(s): J44.0 - CHRONIC OBSTRUCTIVE PULMON DISEASE W ACUTE LOWER RESP INFCT (3) COPD exacerbation Code(s): J44.1 - CHRONIC OBSTRUCTIVE PULMONARY DISEASE W (ACUTE) EXACERBATION (4) CAD S/P percutaneous coronary angioplasty Code(s): I25.10 - ATHSCL HEART DISEASE OF [place] CORONARY ARTERY W/O ANG PCTRS; Z98.61 - CORONARY ANGIOPLASTY STATUS (5) CHF (congestive heart failure) Code(s): I50.9 - HEART FAILURE, UNSPECIFIED (6) COPD (chronic obstructive pulmonary disease) Code(s): J44.9 - CHRONIC OBSTRUCTIVE PULMONARY DISEASE, UNSPECIFIED Qualifiers: COPD type: COPD with acute exacerbation Qualified Code(s): J44.1 - Chronic obstructive pulmonary disease with (acute) exacerbation Assessment/Plan Current Active Problems Atrial fibrillation (Acute) COPD (chronic obstructive pulmonary disease) with acute bronchitis (Acute) COPD exacerbation (Acute) Fever (Acute) Pneumonia (Acute) Abnormal Lab Results 06/24/17 06/24/17 06/24/17 06:00 06:00 10:53 RDW 20.8 H Neutrophils % 88.5 H Lymphocytes % 6.3 L D BUN 36 H Creatinine 1.4 H Random Glucose 309 H* Hemoglobin A1c % 7.9 H Calcium 8.4 L Total Protein 6.3 L Albumin 2.9 L HDL Cholesterol 72 H Laboratory Results - last 24 hr 06/24/17 06/24/17 06/24/17 05:59 06:00 06:00 WBC 5.5 D RBC 3.93 Hgb 11.0 Hct 33.3 MCV 84.7 MCH 27.9 MCHC 32.9 RDW 20.8 H Plt Count 159 MPV 9.8 Neutrophils % 88.5 H Lymphocytes % 6.3 L D Monocytes % 5.1 D Eosinophils % 0.0 Basophils % 0.1 Sodium 138 Potassium 3.9 Chloride 99 Carbon Dioxide 29 Anion Gap 10 BUN 36 H Creatinine 1.4 H Creat Clearance w eGFR 35.82 POC Glucometer 307 Random Glucose 309 H* Hemoglobin A1c % Calcium 8.4 L Total Bilirubin 0.4 D AST 25 ALT 23 Alkaline Phosphatase 55 Total Protein 6.3 L Albumin 2.9 L Triglycerides 67 Cholesterol 168 Total LDL Cholesterol 80 HDL Cholesterol 72 H 06/24/17 06/24/17 06/24/17 06:00 10:53 11:06 WBC RBC Hgb Hct MCV MCH MCHC RDW Plt Count MPV Neutrophils % Lymphocytes % Monocytes % Eosinophils % Basophils % Sodium Potassium Chloride Carbon Dioxide Anion Gap BUN Creatinine Creat Clearance w eGFR POC Glucometer 212 Random Glucose Hemoglobin A1c % 7.9 H Calcium Total Bilirubin AST ALT Alkaline Phosphatase Total Protein Albumin Triglycerides Cancelled Cholesterol Cancelled Total LDL Cholesterol Cancelled HDL Cholesterol Cancelled 06/24/17 06/24/17 16:28 21:07 WBC RBC Hgb Hct MCV MCH MCHC RDW Plt Count MPV Neutrophils % Lymphocytes % Monocytes % Eosinophils % Basophils % Sodium Potassium Chloride Carbon Dioxide Anion Gap BUN Creatinine Creat Clearance w eGFR POC Glucometer 293 407 Random Glucose Hemoglobin A1c % Calcium Total Bilirubin AST ALT Alkaline Phosphatase Total Protein Albumin Triglycerides Cholesterol Total LDL Cholesterol HDL Cholesterol plan: bgm qid novolog insulin doses levemir 15 units am levemir 10 units hs
[2017-06-25] MEDS ORDERED: diphenhydrAMINE HCL 25 MG CAPSULE (FP) PO ONE (00:32)
--- NOTE | 2017-06-25 00:32 | HOSP ---
Subjective - Review of Symptoms Neurological: Yes: Other (anxiety) Physical Examination Vital Signs: Vital Signs Temperature 98.1 F 06/24/17 21:03 Pulse Rate 85 06/24/17 21:03 Respiratory Rate 20 06/24/17 21:03 Blood Pressure 128/65 06/24/17 21:03 O2 Sat by Pulse Oximetry (%) 94 L 06/24/17 21:00 Respiratory: Yes: SOB (not new, here for copd excerbation), SOB on Exertion Labs: CBC, BMP 06/24/17 06:00 06/24/17 21:45 Hospitalist Encounter Assessment: A/P 82 yr old with COPD excerbation, has DM with elevated glucoses since on prednisone, CHF Nurse called because pt is anxious and not able to sleep. Her health conditions are causing her to have anxiety. She is refusing some of the treatments provided according to the RN. Seen pt at bedside and discussed her need to sleep and calm down. She was in agreement to take a one time dose of mild sleeping aid, benadryl to get some sleep and try to relax. Pt also stated she was feeling more congested. IVF stopped.
[2017-06-25] MEDS ORDERED: INSULIN (LEVEMIR) 100 UNITS/ML UNITS SQ ONE (04:53)
[2017-06-25] MEDS: INSULIN (LEVEMIR) 100 UNITS/ML UNITS SQ SCH (06:24)
[2017-06-25] MEDS: INSULIN SLIDING SCALE (NOVOLOG) 1 VIAL SQ SCH ×4 (06:25→22:09)
[2017-06-25] MEDS: sitaGLIPtin PHOSPHATE 50 MG TABLET PO SCH (06:26)
[2017-06-25] MEDS: glyBURIDE 5 MG TABLET (UD) PO SCH ×2 (06:26→16:54)
[2017-06-25] MEDS ORDERED: INSULIN (LEVEMIR) 100 UNITS/ML UNITS SQ SCH (07:00)
[2017-06-25 07:34] LABS: BASO % 0.2 % (0-2.0); HEMATOCRIT 32.2 % (32.4-45.2); HEMOGLOBIN 10.7 GM/dL (10.7-15.3); LYMPH % 4.4 % (8-40); MCHC 33.2 g/dl (32.0-36.0); MEAN CELL VOLUME 84.5 fl (80-96); MEAN PLT VOLUME 10.4 fl (7.5-11.1); MONO % 5.5 % (3.8-10.2); NEUT % 89.9 % (42.8-82.8); PLATELET COUNT 181 K/MM3 (134-434); RBC 3.81 M/mm3 (3.60-5.2); RDW 20.8 % (11.6-15.6); WHITE BLOOD COUNT 10.5 K/mm3 (4.0-10.0)
[2017-06-25 08:09] LABS: ANION GAP 4 (8-16); BLOOD UREA NITROGEN 51 mg/dL (7-18); CALCIUM 8.6 mg/dL (8.5-10.1); CHLORIDE 102 mmol/L (98-107); CO2 31 mmol/L (21-32); CREATININE 1.2 mg/dL (0.55-1.02); GLUCOSE,RANDOM 166 mg/dL (74-106); POTASSIUM 3.8 mmol/L (3.5-5.1); SGOT/AST 22 U/L (15-37); SGPT/ALT 22 U/L (12-78); SODIUM 137 mmol/L (136-145)
[2017-06-25 08:11] LABS: ALK PHOS 52 U/L (45-117); BILIRUBIN,TOTAL 0.4 mg/dL (0.2-1.0); TOT PROT 6.2 g/dl (6.4-8.2)
[2017-06-25] MEDS: ALBUTEROL SO4 2.5/IPRATROPIUM 0.5 INH SOL 3 ML VIAL.NEB. NEB SCH ×4 (08:52→20:38)
[2017-06-25] MEDS ORDERED: SODIUM CHLORIDE 100 ML IVPB ONE (08:56)
[2017-06-25] MEDS ORDERED: cefTRIAXone SODIUM 1 GM VIAL ONE (08:56)
[2017-06-25] MEDS: ASPIRIN 81 MG CHEWABLE TABLETS PO SCH (09:19)
[2017-06-25] MEDS: predniSONE 10 MG TABLET (UD) PO SCH (09:19)
[2017-06-25] MEDS: DOXYCYCLINE HYCLATE 100 MG CAPSULE PO SCH ×2 (09:19→18:00)
[2017-06-25] MEDS: VALSARTAN 160 MG TABLET (UD) PO SCH (09:19)
[2017-06-25] MEDS: CEFTRIAXONE 1 GM in SODIUM CHLORIDE 100 ML IVPB SCH (09:19)
--- NOTE | 2017-06-25 09:28 | PN ---
Progress Note, Physician History of Present Illness: feels anxious not sleeping - Current Medication List Current Medications: Active Medications Albuterol Sulfate (Ventolin 0.042trength) -) 1 amp NEB Q4H PRN PRN Reason: SHORT OF BREATH/WHEEZING Albuterol/Ipratropium (Duoneb -) 1 amp NEB RQID [facility] Last Admin: 06/25/17 08:52 Dose: 1 amp Alprazolam (Xanax -) 0.25 mg PO BID [facility] Aspirin (Asa -) 81 mg PO DAILY [facility] Last Admin: 06/25/17 09:19 Dose: 81 mg Dabigatran (Pradaxa -) 150 mg PO BID [facility] Last Admin: 06/24/17 21:15 Dose: 150 mg Diltiazem HCl (Cardizem Cd -) 240 mg PO DAILY [facility] Last Admin: 06/25/17 09:19 Dose: 240 mg Docusate Sodium (Colace -) 100 mg PO HS [facility] Last Admin: 06/24/17 21:15 Dose: 100 mg Doxycycline Hyclate (Vibramycin -) 100 mg PO BID@1000,1800 [facility] Last Admin: 06/25/17 09:19 Dose: 100 mg Furosemide (Lasix Injection -) 40 mg IVPUSH DAILY [facility] Last Admin: 06/25/17 09:19 Dose: 40 mg Furosemide (Lasix Injection -) 40 mg IVPUSH BID@0600,1400 [facility] Glyburide (Diabeta -) 5 mg PO BIDAC [facility] Last Admin: 06/25/17 06:26 Dose: 5 mg Ceftriaxone Sodium 1 gm/ (Sodium Chloride) 100 mls @ 200 mls/hr IVPB DAILY [facility] PRN Reason: Protocol Last Admin: 06/25/17 09:19 Dose: 200 mls/hr Insulin Aspart (Novolog Vial Sliding Scale -) 1 vial SQ ACHS [facility] PRN Reason: Protocol Last Admin: 06/25/17 06:25 Dose: Not Given Insulin Detemir (Levemir Vial) 20 units SQ AM [facility] Last Admin: 06/25/17 06:24 Dose: Not Given Non-Formulary Medication (Cholecalciferol (Vitamin D3) [Optimal D3]) 50,000 unit PO WEEKLY [facility] Prednisone (Deltasone -) 30 mg PO BID [facility] Last Admin: 06/25/17 09:19 Dose: 30 mg Rosuvastatin Calcium (Crestor -) 20 mg PO HS [facility] Last Admin: 06/24/17 21:16 Dose: 20 mg Sitagliptin Phosphate (Januvia -) 50 mg PO DAILY@0700 [facility] Last Admin: 06/25/17 06:26 Dose: 50 mg Valsartan (Diovan -) 320 mg PO DAILY [facility] Last Admin: 06/25/17 09:19 Dose: 320 mg - Objective Vital Signs: Vital Signs Temperature 98.2 F 06/25/17 08:25 Pulse Rate 89 06/25/17 08:25 Respiratory Rate 22 06/25/17 08:25 Blood Pressure 154/83 06/25/17 08:25 O2 Sat by Pulse Oximetry (%) 94 L 06/24/17 21:00 Cardiovascular: Yes: Pulse Irregular, S1, S2 Respiratory: Yes: Rhonchi, SOB on Exertion, Wheezes Gastrointestinal: Yes: Normal Bowel Sounds, Soft Labs: CBC, BMP 06/25/17 06:00 06/25/17 06:00 INR, PTT INR 1.19 (0.82-1.09) H 06/22/17 10:13 Problem List - Problems (1) COPD (chronic obstructive pulmonary disease) with acute bronchitis Code(s): J44.0 - CHRONIC OBSTRUCTIVE PULMON DISEASE W ACUTE LOWER RESP INFCT (2) COPD exacerbation Code(s): J44.1 - CHRONIC OBSTRUCTIVE PULMONARY DISEASE W (ACUTE) EXACERBATION (3) CAD S/P percutaneous coronary angioplasty Code(s): I25.10 - ATHSCL HEART DISEASE OF [place] CORONARY ARTERY W/O ANG PCTRS; Z98.61 - CORONARY ANGIOPLASTY STATUS (4) CHF (congestive heart failure) Code(s): I50.9 - HEART FAILURE, UNSPECIFIED (5) Diabetes Code(s): E11.9 - TYPE 2 DIABETES MELLITUS WITHOUT COMPLICATIONS Qualifiers: Diabetes mellitus type: other specified (including YULISA) Diabetes mellitus terminal operator insulin use: with terminal operator use Diabetes mellitus complication status: with unspecified complications Qualified Code(s): E13.8 - Other specified diabetes mellitus with unspecified complications (6) Atrial fibrillation Code(s): I48.91 - UNSPECIFIED ATRIAL FIBRILLATION Qualifiers: Atrial fibrillation type: chronic Qualified Code(s): I48.2 - Chronic atrial fibrillation Assessment/Plan - Problems (1) Atrial fibrillation Assessment/Plan: - -on nursing home AC -pradaxa -rapid--add dig -controlled Code(s): I48.91 - UNSPECIFIED ATRIAL FIBRILLATION Qualifiers: Atrial fibrillation type: chronic Qualified Code(s): I48.2 - Chronic atrial fibrillation (2) COPD exacerbation Assessment/Plan: -bronchodilators -change to iv steroids -nasal O2 -nebs -Pulmonary consult Code(s): J44.1 - CHRONIC OBSTRUCTIVE PULMONARY DISEASE W (ACUTE) EXACERBATION (3) Pneumonia Assessment/Plan: LLL CAP -ID consult -IV abx -PO abx -switch to PO tomorrow Code(s): J18.9 - PNEUMONIA, UNSPECIFIED ORGANISM (4) Diabetes mellitus, insulin dependent (IDDM), uncontrolled Assessment/Plan: -IV abx to be mixed in NS-done -Tapering steroids -A1c pending -on Januvia and glyburide -Endocrine consult -insulin sliding scale -diabetic diet Code(s): E10.65 - TYPE 1 DIABETES MELLITUS WITH HYPERGLYCEMIA Qualifiers: Diabetes mellitus complication status: with unspecified complications Qualified Code(s): E10.8 - Type 1 diabetes mellitus with unspecified complications (5) CHF Assessment/Plan: -IV LASIX BID -FOLLOW LABS (6) Anxiety Assessment/Plan: -XANAX .25 BID
[2017-06-25] MEDS ORDERED: PT OWN MED DRAWER 7, Y5N ONE ×2 (09:32→22:04)
[2017-06-25] MEDS ORDERED: FUROSEMIDE 40 MG/4 ML INJECTABLE VIAL IVPUSH SCH (10:00)
[2017-06-25] MEDS: ALPRAZolam 0.25 MG TABLET PO SCH ×2 (10:12→22:09)
[2017-06-25] MEDS: DABIGATRAN ETEXILATE MESYLATE 150 MG CAPSULE PO SCH ×2 (10:13→22:09)
[2017-06-25] MEDS ORDERED: methylPREDNISolone NA SUCC 40 MG/1 ML VIAL IVPUSH SCH (10:45)
--- NOTE | 2017-06-25 11:44 | PN ---
Progress Note (short form) - Note Progress Note: PULMONARY RESTING COMFORTABLY AUDIBLE EXPIRATORY WHEEZE VSS/AFEBRILE ANICTERIC EXP WHEEZE S1S2 IRREGULAR BS+ OBESE NO EDEMA MEDS/NOTES/IMAGES/LABS REVIEWED IMP: Bi-basilar Pneumonia COPD Exacerbation ILD Chronic Hypoxic Respiratory Failure/home o2 LV Diastolic Dysfunction Atrial Fibrillation Mitral Regurgitation CAD HTN DM Hyperlipidemia - continue antibiotics - Medrol reduced slightly - inhaled bronchodilators - O2 to keep SpO2 >90% - rate control - continue anticoagulation Bridger VELAZQUEZ MD
[2017-06-25] MEDS ORDERED: DIGOXIN 0.25 MG TABLET (FP) PO ONE (12:30)
[2017-06-25] MEDS ORDERED: DIGOXIN 0.125 MG TABLET (FP) PO ONE (12:30)
--- NOTE | 2017-06-25 14:46 | PN ---
Progress Note, Physician Chief Complaint: Patient has worsening SOB since last night with anxiety. She denies palpitation or chest pain. History of Present Illness: 82y year-old woman with a PMHx of HTN, hyperlipidemia, DM, CAD, s/p stenting in the past, CHF, severe mitral valve regurgitation, chronic atrial fibrillationCOPD, chronic hypoxic respiratory failure on home O2 admitted 2017 with worsening shortness of breath for several days. She was treated for COPD exacerbation, pneumonia and acute CHF. - Current Medication List Current Medications: Active Medications Albuterol Sulfate (Ventolin 0.042trength) -) 1 amp NEB Q4H PRN PRN Reason: SHORT OF BREATH/WHEEZING Albuterol/Ipratropium (Duoneb -) 1 amp NEB RQID [facility] Last Admin: 06/25/17 11:49 Dose: 1 amp Alprazolam (Xanax -) 0.25 mg PO BID [facility] Last Admin: 06/25/17 10:12 Dose: 0.25 mg Aspirin (Asa -) 81 mg PO DAILY [facility] Last Admin: 06/25/17 09:19 Dose: 81 mg Dabigatran (Pradaxa -) 150 mg PO BID [facility] Last Admin: 06/25/17 10:13 Dose: 150 mg Digoxin (Lanoxin -) 0.125 mg PO DAILY [facility] Diltiazem HCl (Cardizem Cd -) 240 mg PO DAILY [facility] Last Admin: 06/25/17 09:19 Dose: 240 mg Docusate Sodium (Colace -) 100 mg PO HS [facility] Last Admin: 06/24/17 21:15 Dose: 100 mg Doxycycline Hyclate (Vibramycin -) 100 mg PO BID@1000,1800 [facility] Last Admin: 06/25/17 09:19 Dose: 100 mg Furosemide (Lasix Injection -) 40 mg IVPUSH BID@0600,1400 [facility] Glyburide (Diabeta -) 5 mg PO BIDAC [facility] Last Admin: 06/25/17 06:26 Dose: 5 mg Ceftriaxone Sodium 1 gm/ (Sodium Chloride) 100 mls @ 200 mls/hr IVPB DAILY [facility] PRN Reason: Protocol Last Admin: 06/25/17 09:19 Dose: 200 mls/hr Insulin Aspart (Novolog Vial Sliding Scale -) 1 vial SQ ACHS [facility] PRN Reason: Protocol Last Admin: 04/27/18 12:14 Dose: 4 units Insulin Detemir (Levemir Vial) 20 units SQ AM [facility] Last Admin: 06/25/17 06:24 Dose: Not Given Methylprednisolone Sodium Succinate (Solu-Medrol -) 40 mg IVPUSH Q6H-IV [facility] Non-Formulary Medication (Cholecalciferol (Vitamin D3) [Optimal D3]) 50,000 unit PO WEEKLY [facility] Rosuvastatin Calcium (Crestor -) 20 mg PO HS [facility] Last Admin: 06/24/17 21:16 Dose: 20 mg Sitagliptin Phosphate (Januvia -) 50 mg PO DAILY@0700 [facility] Last Admin: 06/25/17 06:26 Dose: 50 mg Valsartan (Diovan -) 320 mg PO DAILY [facility] Last Admin: 06/25/17 09:19 Dose: 320 mg - Objective Vital Signs: Vital Signs Temperature 98.2 F 06/25/17 13:38 Pulse Rate 103 H 06/25/17 13:38 Respiratory Rate 18 06/25/17 13:38 Blood Pressure 138/72 06/25/17 13:38 O2 Sat by Pulse Oximetry (%) 93 L 06/25/17 09:00 General: Well developed. Chronic ill. No acute distress. Head: Normocephalic. Atraumatic, Eyes: PERRLA, EOMI. Sclerae anicteric. Conjunctivae clear. Neck: Supple. (+) JVD. No bruits. Heart: Normal S1, S2: Irregularly regular rhythm and rate. II/ Holosystolic murmur. No gallop or rub. Lungs: Symmetrical poor air entry. Markedly decreased breath sound and prolonged expiration. Scattered wheezing. No rales or rhonchi. Abdomen: Soft. Bowel sound positive. Non tender. No masses. Extremities: Trace edema. No clubbing or cyanosis. PD 2+, equal bilaterally. Neuro: Intact, no focal findings. AAO X3. Labs: CBC, BMP 06/25/17 06:00 06/25/17 06:00 INR, PTT INR 1.19 (0.82-1.09) H 06/22/17 10:13 Assessment/Plan 82y year-old woman with a PMHx of HTN, hyperlipidemia, DM, CAD, s/p stenting in the past, CHF, severe mitral valve regurgitation, chronic atrial fibrillationCOPD, chronic hypoxic respiratory failure on home O2 admitted 2017 with worsening shortness of breath for several days. CXR and CT chest 06/22/2017 showed cardiomegaly and pulmonary congestion. Seen by pulmonary. IV Solumedrol, ABx and Lasix started. The patient has worsening dyspnea after receiving IV fluid. 1) Acute diastolic CHF, exacerbated by severe mitral regurgitation. Elevated BUN, likely caused by IV steroid. Avoid IV fluid. May change Lasix back to PO 40 mg BID tomorrow. Monitor lytes and renal function. She was seen by Dr. Mukherjee for out-pt cardiac follow up. [facility] should be considered in future as out-patient for severe mitral regurgitation. 2) Chronic atrial fibrillation. Remains in afib with controlled VR. Continue Dilt 240 mg daily. Continue Pradaxa 150 mg BID for stroke prevention. Please call us for reconsult as needed.
--- NOTE | 2017-06-25 15:06 | PN ---
Progress Note (short form) - Note Progress Note: continues to cough and wheeze Vital Signs Period Temp Pulse Resp BP Sys/Lam Pulse Ox Last 24 Hr 97.7 F-98.8 F 72-103 18-22 119-154/65-84 93-94 cor-rrr lungs bilateral wheezing abd soft,nt ext trace edema CBC, BMP 06/25/17 06:00 06/25/17 06:00 Microbiology 06/22/17 10:13 Blood - Peripheral Venous Blood Culture - Preliminary NO GROWTH OBTAINED AFTER 72 HOURS, INCUBATION TO CONTINUE FOR 2 DAYS. 06/22/17 10:13 Blood - Peripheral Venous Blood Culture - Preliminary NO GROWTH OBTAINED AFTER 72 HOURS, INCUBATION TO CONTINUE FOR 2 DAYS. 06/22/17 14:05 Urine - Urine Clean Catch Urine Culture - Final Diphtheroid/Corynebacterium 06/22/17 14:05 Urine For Antigen Detection Legionella Antigen - Final 06/22/17 14:05 Urine For Antigen Detection Streptococcus pneumoniae Antigen (M - Final 06/22/17 14:05 Nasopharyngeal Swab Influenza Types A,B Antigen (CESAR) - Final 06/22/17 14:05 Nasopharyngeal Swab - Final a/p LLL pneumonia -CAP COPD CHF cultures -negative influenza screen negative urinary antigens negative antibiotic day #4 rocephin/doxycycline continue diuresis continue copd treatment check rsv antigen Problem List - Problems (1) Fever Code(s): R50.9 - FEVER, UNSPECIFIED (2) Pneumonia Code(s): J18.9 - PNEUMONIA, UNSPECIFIED ORGANISM (3) COPD (chronic obstructive pulmonary disease) Code(s): J44.9 - CHRONIC OBSTRUCTIVE PULMONARY DISEASE, UNSPECIFIED Qualifiers: COPD type: COPD with acute exacerbation Qualified Code(s): J44.1 - Chronic obstructive pulmonary disease with (acute) exacerbation (4) CHF (congestive heart failure) Code(s): I50.9 - HEART FAILURE, UNSPECIFIED
[2017-06-25] MEDS: methylPREDNISolone NA SUCC 40 MG/1 ML VIAL IVPUSH SCH ×2 (15:18→22:10)
[2017-06-25] MEDS: FUROSEMIDE 40 MG/4 ML INJECTABLE VIAL IVPUSH SCH (15:18)
[2017-06-25] MEDS ORDERED: INSULIN (NOVOLOG) ASPART 100 UNITS/ML 10ML VIAL SQ ONE (17:44)
[2017-06-25] MEDS ORDERED: MAG HYDROX/AL HYDROX/SIMETH -MYLANTA- ORAL SUSPENSION PO ONE (17:46)
[2017-06-25] MEDS ORDERED: MAG HYDROX/AL HYDROX/SIMETH 30 ML UNIT-DOSE CUP PO ONE (18:00)
[2017-06-25] MEDS ORDERED: MAGNESIUM HYDROX 2400MG/30ML ORAL SUSPENSION 30 ML CUP PO ONE (21:21)
[2017-06-25] MEDS ORDERED: INSULIN (NOVOLOG) ASPART 100 UNITS/ML 10ML VIAL ONE (22:03)
[2017-06-25] MEDS: DOCUSATE SODIUM 100 MG CAPSULE (FP) PO SCH (22:09)
[2017-06-25] MEDS: ROSUVASTATIN CA 20 MG TABLET (FP) PO SCH (22:10)
[2017-06-26] MEDS: methylPREDNISolone NA SUCC 40 MG/1 ML VIAL IVPUSH SCH ×3 (03:39→17:42)
[2017-06-26] MEDS: ALBUTEROL SO4 0.042% IH SOL 1.25 MG/3 ML VIAL.NEB NEB PRN ×2 (03:59→07:15)
[2017-06-26] MEDS: INSULIN SLIDING SCALE (NOVOLOG) 1 VIAL SQ SCH ×4 (06:15→22:05)
[2017-06-26] MEDS: FUROSEMIDE 40 MG/4 ML INJECTABLE VIAL IVPUSH SCH ×2 (06:15→13:59)
[2017-06-26] MEDS: INSULIN (LEVEMIR) 100 UNITS/ML UNITS SQ SCH ×2 (06:15→22:04)
[2017-06-26] MEDS: sitaGLIPtin PHOSPHATE 50 MG TABLET PO SCH (06:20)
[2017-06-26] MEDS: glyBURIDE 5 MG TABLET (UD) PO SCH ×2 (06:20→15:58)
[2017-06-26] MEDS: ALBUTEROL SO4 2.5/IPRATROPIUM 0.5 INH SOL 3 ML VIAL.NEB. NEB SCH ×4 (07:20→19:28)
[2017-06-26] MEDS ORDERED: cefTRIAXone SODIUM 1 GM VIAL ONE (09:41)
[2017-06-26] MEDS ORDERED: SODIUM CHLORIDE 100 ML IVPB ONE (09:41)
[2017-06-26] MEDS: CEFTRIAXONE 1 GM in SODIUM CHLORIDE 100 ML IVPB SCH (10:01)
[2017-06-26] MEDS: ASPIRIN 81 MG CHEWABLE TABLETS PO SCH (10:02)
[2017-06-26] MEDS: DIGOXIN 0.125 MG TABLET (FP) PO SCH (10:02)
[2017-06-26] MEDS: DOXYCYCLINE HYCLATE 100 MG CAPSULE PO SCH ×2 (10:02→17:42)
[2017-06-26] MEDS: ALPRAZolam 0.25 MG TABLET PO SCH ×2 (10:02→22:06)
[2017-06-26] MEDS: VALSARTAN 160 MG TABLET (UD) PO SCH (10:03)
[2017-06-26] MEDS: DABIGATRAN ETEXILATE MESYLATE 150 MG CAPSULE PO SCH ×2 (10:03→22:06)
--- NOTE | 2017-06-26 10:42 | PN ---
Progress Note, Physician Chief Complaint: Pneumonia COPD exacerbation CHF History of Present Illness: NAD, in bed, feels better today cough improved wheezing improved IV abx ID consult Pulmonary on board - Current Medication List Current Medications: Active Medications Albuterol Sulfate (Ventolin 0.042trength) -) 1 amp NEB Q4H PRN PRN Reason: SHORT OF BREATH/WHEEZING Last Admin: 06/26/17 07:15 Dose: 1 amp Albuterol/Ipratropium (Duoneb -) 1 amp NEB RQID [facility] Last Admin: 06/26/17 07:20 Dose: 1 amp Alprazolam (Xanax -) 0.25 mg PO BID [facility] Last Admin: 06/26/17 10:02 Dose: 0.25 mg Aspirin (Asa -) 81 mg PO DAILY [facility] Last Admin: 06/26/17 10:02 Dose: 81 mg Dabigatran (Pradaxa -) 150 mg PO BID [facility] Last Admin: 06/26/17 10:03 Dose: 150 mg Digoxin (Lanoxin -) 0.125 mg PO DAILY [facility] Last Admin: 06/26/17 10:02 Dose: 0.125 mg Diltiazem HCl (Cardizem Cd -) 240 mg PO DAILY [facility] Last Admin: 06/26/17 10:03 Dose: 240 mg Docusate Sodium (Colace -) 100 mg PO HS [facility] Last Admin: 06/25/17 22:09 Dose: 100 mg Doxycycline Hyclate (Vibramycin -) 100 mg PO BID@1000,1800 [facility] Last Admin: 06/26/17 10:02 Dose: 100 mg Furosemide (Lasix Injection -) 40 mg IVPUSH BID@0600,1400 [facility] Last Admin: 06/26/17 06:15 Dose: 40 mg Glyburide (Diabeta -) 5 mg PO BIDAC [facility] Last Admin: 06/26/17 06:20 Dose: 5 mg Ceftriaxone Sodium 1 gm/ (Sodium Chloride) 100 mls @ 200 mls/hr IVPB DAILY [facility] PRN Reason: Protocol Last Admin: 06/26/17 10:01 Dose: 200 mls/hr Insulin Aspart (Novolog Vial Sliding Scale -) 1 vial SQ ACHS [facility] PRN Reason: Protocol Last Admin: 06/26/17 06:15 Dose: 10 units Insulin Detemir (Levemir Vial) 20 units SQ AM [facility] Last Admin: 06/26/17 06:15 Dose: 20 unit Methylprednisolone Sodium Succinate (Solu-Medrol -) 40 mg IVPUSH Q6H-IV [facility] Last Admin: 06/26/17 10:01 Dose: 40 mg Non-Formulary Medication (Cholecalciferol (Vitamin D3) [Optimal D3]) 50,000 unit PO WEEKLY [facility] Rosuvastatin Calcium (Crestor -) 20 mg PO HS [facility] Last Admin: 06/25/17 22:10 Dose: 20 mg Sitagliptin Phosphate (Januvia -) 50 mg PO DAILY@0700 [facility] Last Admin: 06/26/17 06:20 Dose: 50 mg Valsartan (Diovan -) 320 mg PO DAILY [facility] Last Admin: 06/26/17 10:03 Dose: 320 mg - Objective Vital Signs: Vital Signs Temperature 98.1 F 06/26/17 06:10 Pulse Rate 68 06/26/17 10:02 Respiratory Rate 23 06/26/17 06:10 Blood Pressure 145/78 06/26/17 06:10 O2 Sat by Pulse Oximetry (%) 92 L 06/25/17 21:00 Constitutional: Yes: Well Nourished, No Distress, Calm Cardiovascular: Yes: Regular Rate and Rhythm Respiratory: Yes: On Nasal O2, Rales (BLL), SOB on Exertion, Wheezes (ERLINDA,LLL, RLL) Gastrointestinal: Yes: Normal Bowel Sounds, Soft Musculoskeletal: Yes: Muscle Weakness Extremities: Yes: WNL Edema: No Peripheral Pulses WNL: Yes Neurological: Yes: Alert, Oriented Psychiatric: Yes: Alert, Oriented Labs: CBC, BMP 06/25/17 06:00 06/25/17 06:00 INR, PTT INR 1.19 (0.82-1.09) H 06/22/17 10:13 Problem List - Problems (1) Atrial fibrillation Assessment/Plan: -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 -pradaxa -controlled Code(s): I48.91 - UNSPECIFIED ATRIAL FIBRILLATION Qualifiers: Atrial fibrillation type: chronic Qualified Code(s): I48.2 - Chronic atrial fibrillation (2) COPD exacerbation Assessment/Plan: -bronchodilators -tapering IV steroids -nasal O2 PRN -Pulmonary consult Code(s): J44.1 - CHRONIC OBSTRUCTIVE PULMONARY DISEASE W (ACUTE) EXACERBATION (3) Pneumonia Assessment/Plan: LLL CAP -ID consult -IV abx -PO abx Code(s): J18.9 - PNEUMONIA, UNSPECIFIED ORGANISM (4) Diabetes mellitus, insulin dependent (IDDM), uncontrolled Assessment/Plan: -IV abx to be mixed in NS-done -Tapering steroids -A1c pending -on Januvia and glyburide -Endocrine consult -insulin sliding scale -diabetic diet Code(s): E10.65 - TYPE 1 DIABETES MELLITUS WITH HYPERGLYCEMIA Qualifiers: Diabetes mellitus complication status: with unspecified complications Qualified Code(s): E10.8 - Type 1 diabetes mellitus with unspecified complications (5) CHF (congestive heart failure) Assessment/Plan: -seen by cardiology -IV diuresis Code(s): I50.9 - HEART FAILURE, UNSPECIFIED Assessment/Plan see problem list Physical therapy
--- NOTE | 2017-06-26 11:34 | EKG ---
Test Reason : Blood Pressure : / mmHG Vent. Rate : 101 BPM Atrial Rate : 078 BPM P-R Int : 000 ms QRS Dur : 106 ms QT Int : 390 ms P-R-T Axes : 000 087 125 degrees QTc Int : 505 ms ATRIAL FIBRILLATION WITH RAPID VENTRICULAR RESPONSE POSSIBLE ANTEROLATERAL INFARCT (CITED ON OR BEFORE 30-AUG-2016) ABNORMAL ECG WHEN COMPARED WITH ECG OF 23-JUN-2017 11:42, NONSPECIFIC T WAVE ABNORMALITY NOW EVIDENT IN INFERIOR LEADS Confirmed by JENNIFER PILLAI MD ([id number]) on 06/26/2017 11:34:01 AM Referred By: Confirmed By:JENNIFER PILLAI MD
[2017-06-26 11:55] LABS: BASO % 0.1 % (0-2.0); HEMATOCRIT 30.8 % (32.4-45.2); HEMOGLOBIN 10.1 GM/dL (10.7-15.3); LYMPH % 5.1 % (8-40); MCH 28.1 pg (25.7-33.7); MCHC 32.8 g/dl (32.0-36.0); MEAN CELL VOLUME 85.6 fl (80-96); MEAN PLT VOLUME 9.7 fl (7.5-11.1); MONO % 6.3 % (3.8-10.2); NEUT % 88.5 % (42.8-82.8); PLATELET COUNT 169 K/MM3 (134-434); RDW 20.7 % (11.6-15.6); WHITE BLOOD COUNT 7.7 K/mm3 (4.0-10.0)
--- NOTE | 2017-06-26 12:42 | PN ---
Progress Note (short form) - Note Progress Note: PULMONARY Breathing slowly improving. Less cough and wheezing. Last Vital Signs Temp Pulse Resp BP Pulse Ox 98.1 F 68 23 145/78 88 L 06/26/17 06:10 06/26/17 10:02 06/26/17 06:10 06/26/17 06:10 06/26/17 09:00 Gen: less tachypneic Heart: RRR Lung: less rhonchi, wheezes Abd: soft, nontender Ext: no edema CBC, BMP 06/26/17 11:00 Active Medications Albuterol Sulfate (Ventolin 0.042trength) -) 1 amp NEB Q4H PRN PRN Reason: SHORT OF BREATH/WHEEZING Last Admin: 06/26/17 07:15 Dose: 1 amp Albuterol/Ipratropium (Duoneb -) 1 amp NEB RQID [facility] Last Admin: 06/26/17 11:46 Dose: 1 amp Alprazolam (Xanax -) 0.25 mg PO BID [facility] Last Admin: 06/26/17 10:02 Dose: 0.25 mg Aspirin (Asa -) 81 mg PO DAILY [facility] Last Admin: 06/26/17 10:02 Dose: 81 mg Dabigatran (Pradaxa -) 150 mg PO BID [facility] Last Admin: 06/26/17 10:03 Dose: 150 mg Digoxin (Lanoxin -) 0.125 mg PO DAILY [facility] Last Admin: 06/26/17 10:02 Dose: 0.125 mg Diltiazem HCl (Cardizem Cd -) 240 mg PO DAILY [facility] Last Admin: 06/26/17 10:03 Dose: 240 mg Docusate Sodium (Colace -) 100 mg PO HS [facility] Last Admin: 06/25/17 22:09 Dose: 100 mg Doxycycline Hyclate (Vibramycin -) 100 mg PO BID@1000,1800 [facility] Last Admin: 06/26/17 10:02 Dose: 100 mg Furosemide (Lasix Injection -) 40 mg IVPUSH BID@0600,1400 [facility] Last Admin: 06/26/17 06:15 Dose: 40 mg Glyburide (Diabeta -) 5 mg PO BIDAC [facility] Last Admin: 06/26/17 06:20 Dose: 5 mg Ceftriaxone Sodium 1 gm/ (Sodium Chloride) 100 mls @ 200 mls/hr IVPB DAILY [facility] PRN Reason: Protocol Last Admin: 06/26/17 10:01 Dose: 200 mls/hr Insulin Aspart (Novolog Vial Sliding Scale -) 1 vial SQ ACHS [facility] PRN Reason: Protocol Last Admin: 06/26/17 11:22 Dose: 8 units Insulin Detemir (Levemir Vial) 20 units SQ AM [facility] Last Admin: 06/26/17 06:15 Dose: 20 unit Magnesium Hydroxide (Milk Of Magnesia -) 30 ml PO Q8H PRN PRN Reason: INDIGESTION Methylprednisolone Sodium Succinate (Solu-Medrol -) 40 mg IVPUSH Q8H-IV [facility] Non-Formulary Medication (Cholecalciferol (Vitamin D3) [Optimal D3]) 50,000 unit PO WEEKLY [facility] Pantoprazole Sodium (Protonix -) 20 mg PO DAILY [facility] Rosuvastatin Calcium (Crestor -) 20 mg PO HS [facility] Last Admin: 06/25/17 22:10 Dose: 20 mg Sitagliptin Phosphate (Januvia -) 50 mg PO DAILY@0700 [facility] Last Admin: 06/26/17 06:20 Dose: 50 mg Valsartan (Diovan -) 320 mg PO DAILY [facility] Last Admin: 06/26/17 10:03 Dose: 320 mg A/P Pneumonia Acute COPD Exacerbation Chronic Hypoxic Respiratory Failure LV Diastolic Dysfunction Atrial Fibrillation Mitral Regurgitation CAD HTN DM Hyperlipidemia - continue antibiotics - continue medrol at current dose - glucose control while on systemic steroids - inhaled bronchodilators - O2 to keep SpO2 >90% - rate control - continue anticoagulation Problem List - Problems (1) COPD exacerbation Code(s): J44.1 - CHRONIC OBSTRUCTIVE PULMONARY DISEASE W (ACUTE) EXACERBATION (2) Pneumonia Code(s): J18.9 - PNEUMONIA, UNSPECIFIED ORGANISM (3) CAD S/P percutaneous coronary angioplasty Code(s): I25.10 - ATHSCL HEART DISEASE OF [place] CORONARY ARTERY W/O ANG PCTRS; Z98.61 - CORONARY ANGIOPLASTY STATUS (4) Dyslipidemia Code(s): E78.5 - HYPERLIPIDEMIA, UNSPECIFIED (5) HTN (hypertension) Code(s): I10 - ESSENTIAL (PRIMARY) HYPERTENSION Qualifiers: Hypertension type: essential hypertension Qualified Code(s): I10 - Essential (primary) hypertension (6) Mitral valve regurgitation Code(s): I34.0 - NONRHEUMATIC MITRAL (VALVE) INSUFFICIENCY Qualifiers: Cardiac valve disease etiology: etiology unspecified Qualified Code(s): I34.0 - Nonrheumatic mitral (valve) insufficiency
[2017-06-26 13:20] LABS: ALK PHOS 59 U/L (45-117); ANION GAP 7 (8-16); BILIRUBIN,TOTAL 0.5 mg/dL (0.2-1.0); BLOOD UREA NITROGEN 52 mg/dL (7-18); CALCIUM 8.2 mg/dL (8.5-10.1); CHLORIDE 98 mmol/L (98-107); CO2 32 mmol/L (21-32); CREATININE 1.5 mg/dL (0.55-1.02); POTASSIUM 3.7 mmol/L (3.5-5.1); SGOT/AST 26 U/L (15-37); SGPT/ALT 29 U/L (12-78); SODIUM 137 mmol/L (136-145); TOT PROT 6.2 g/dl (6.4-8.2)
[2017-06-26 13:39] LABS: GLUCOSE,RANDOM 390 mg/dL (74-106)
--- NOTE | 2017-06-26 21:37 | PN ---
Progress Note (short form) - Note Progress Note: hyperglycemia likely stress related,dyspnea at rest Abnormal Lab Results 06/26/17 06/26/17 11:00 11:00 Hgb 10.1 L Hct 30.8 L RDW 20.7 H Neutrophils % 88.5 H Lymphocytes % 5.1 L Anion Gap 7 L BUN 52 H Creatinine 1.5 H Random Glucose 390 H* Calcium 8.2 L Total Protein 6.2 L Albumin 3.0 L Laboratory Tests 06/25/17 06/25/17 06/25/17 06:00 07:40 11:39 Sodium 137 Potassium 3.8 Chloride 102 Carbon Dioxide 31 Anion Gap 4 L BUN 51 H Creatinine 1.2 H POC Glucometer 185 271 06/25/17 06/26/17 06/26/17 22:07 11:10 15:58 Sodium Potassium Chloride Carbon Dioxide Anion Gap BUN Creatinine POC Glucometer 255 377 167 Current Active Problems Atrial fibrillation (Acute) COPD (chronic obstructive pulmonary disease) with acute bronchitis (Acute) COPD exacerbation (Acute) Fever (Acute) Pneumonia (Acute) diabetes mellitus hyperglycemia/insulin resistant plan: levemir 35units am 25 units hs Problem List - Problems (1) Atrial fibrillation Code(s): I48.91 - UNSPECIFIED ATRIAL FIBRILLATION Qualifiers: Atrial fibrillation type: chronic Qualified Code(s): I48.2 - Chronic atrial fibrillation (2) COPD (chronic obstructive pulmonary disease) with acute bronchitis Code(s): J44.0 - CHRONIC OBSTRUCTIVE PULMON DISEASE W ACUTE LOWER RESP INFCT (3) COPD exacerbation Code(s): J44.1 - CHRONIC OBSTRUCTIVE PULMONARY DISEASE W (ACUTE) EXACERBATION (4) CAD S/P percutaneous coronary angioplasty Code(s): I25.10 - ATHSCL HEART DISEASE OF [place] CORONARY ARTERY W/O ANG PCTRS; Z98.61 - CORONARY ANGIOPLASTY STATUS (5) CHF (congestive heart failure) Code(s): I50.9 - HEART FAILURE, UNSPECIFIED (6) COPD (chronic obstructive pulmonary disease) Code(s): J44.9 - CHRONIC OBSTRUCTIVE PULMONARY DISEASE, UNSPECIFIED Qualifiers: COPD type: COPD with acute exacerbation Qualified Code(s): J44.1 - Chronic obstructive pulmonary disease with (acute) exacerbation
[2017-06-26] MEDS: ROSUVASTATIN CA 20 MG TABLET (FP) PO SCH (22:05)
[2017-06-26] MEDS: DOCUSATE SODIUM 100 MG CAPSULE (FP) PO SCH (22:06)
[2017-06-27] MEDS: methylPREDNISolone NA SUCC 40 MG/1 ML VIAL IVPUSH SCH ×3 (02:54→17:28)
[2017-06-27] MEDS: FUROSEMIDE 40 MG/4 ML INJECTABLE VIAL IVPUSH SCH ×2 (06:17→14:59)
[2017-06-27] MEDS: sitaGLIPtin PHOSPHATE 50 MG TABLET PO SCH (06:17)
[2017-06-27] MEDS: INSULIN SLIDING SCALE (NOVOLOG) 1 VIAL SQ SCH ×4 (06:18→21:21)
[2017-06-27] MEDS: glyBURIDE 5 MG TABLET (UD) PO SCH ×2 (06:18→17:27)
[2017-06-27] MEDS: INSULIN (LEVEMIR) 100 UNITS/ML UNITS SQ SCH ×2 (06:18→21:21)
[2017-06-27] MEDS: ALBUTEROL SO4 2.5/IPRATROPIUM 0.5 INH SOL 3 ML VIAL.NEB. NEB SCH ×4 (07:22→20:25)
[2017-06-27 08:07] LABS: HEMOGLOBIN 10.4 GM/dL (10.7-15.3); MCH 28.1 pg (25.7-33.7); MCHC 33.4 g/dl (32.0-36.0); MEAN CELL VOLUME 84.2 fl (80-96); MEAN PLT VOLUME 9.5 fl (7.5-11.1); PLATELET COUNT 191 K/MM3 (134-434); RBC 3.69 M/mm3 (3.60-5.2); RDW 20.3 % (11.6-15.6); WHITE BLOOD COUNT 8.2 K/mm3 (4.0-10.0)
[2017-06-27 08:45] LABS: ALBUMIN 3.2 g/dl (3.4-5.0); ANION GAP 8 (8-16); BLOOD UREA NITROGEN 59 mg/dL (7-18); CALCIUM 8.8 mg/dL (8.5-10.1); CHLORIDE 99 mmol/L (98-107); CO2 33 mmol/L (21-32); CREATININE 1.4 mg/dL (0.55-1.02); GLUCOSE,RANDOM 169 mg/dL (74-106); POTASSIUM 3.6 mmol/L (3.5-5.1); SGOT/AST 24 U/L (15-37); SGPT/ALT 31 U/L (12-78); SODIUM 140 mmol/L (136-145)
[2017-06-27 08:47] LABS: ALK PHOS 59 U/L (45-117); BILIRUBIN,TOTAL 0.8 mg/dL (0.2-1.0); TOT PROT 6.5 g/dl (6.4-8.2)
--- NOTE | 2017-06-27 09:04 | PN ---
Progress Note, Physician Chief Complaint: Pneumonia COPD exacerbation CHF History of Present Illness: NAD, in bed, feels better today No wheezing, minimal coughing Tapering IV steroids IV abx ID consult Pulmonary on board - Current Medication List Current Medications: Active Medications Albuterol Sulfate (Ventolin 0.042trength) -) 1 amp NEB Q4H PRN PRN Reason: SHORT OF BREATH/WHEEZING Last Admin: 06/26/17 07:15 Dose: 1 amp Albuterol/Ipratropium (Duoneb -) 1 amp NEB RQID [facility] Last Admin: 06/27/17 07:22 Dose: 1 amp Alprazolam (Xanax -) 0.25 mg PO BID [facility] Last Admin: 06/26/17 22:06 Dose: 0.25 mg Aspirin (Asa -) 81 mg PO DAILY [facility] Last Admin: 06/26/17 10:02 Dose: 81 mg Dabigatran (Pradaxa -) 150 mg PO BID [facility] Last Admin: 06/26/17 22:06 Dose: 150 mg Digoxin (Lanoxin -) 0.125 mg PO DAILY [facility] Last Admin: 06/26/17 10:02 Dose: 0.125 mg Diltiazem HCl (Cardizem Cd -) 240 mg PO DAILY [facility] Last Admin: 06/26/17 10:03 Dose: 240 mg Docusate Sodium (Colace -) 100 mg PO HS [facility] Last Admin: 06/26/17 22:06 Dose: 100 mg Doxycycline Hyclate (Vibramycin -) 100 mg PO BID@1000,1800 [facility] Last Admin: 06/26/17 17:42 Dose: 100 mg Furosemide (Lasix Injection -) 40 mg IVPUSH BID@0600,1400 [facility] Last Admin: 06/27/17 06:17 Dose: 40 mg Glyburide (Diabeta -) 5 mg PO BIDAC [facility] Last Admin: 06/27/17 06:18 Dose: 5 mg Ceftriaxone Sodium 1 gm/ (Sodium Chloride) 100 mls @ 200 mls/hr IVPB DAILY [facility] PRN Reason: Protocol Last Admin: 06/26/17 10:01 Dose: 200 mls/hr Insulin Aspart (Novolog Vial Sliding Scale -) 1 vial SQ ACHS [facility] PRN Reason: Protocol Last Admin: 06/27/17 06:18 Dose: 5 unit Insulin Detemir (Levemir Vial) 35 units SQ AM [facility] Last Admin: 04/29/18 06:18 Dose: 35 unit Insulin Detemir (Levemir Vial) 25 units SQ HS [facility] Last Admin: 06/26/17 22:04 Dose: 25 unit Magnesium Hydroxide (Milk Of Magnesia -) 30 ml PO Q8H PRN PRN Reason: INDIGESTION Methylprednisolone Sodium Succinate (Solu-Medrol -) 40 mg IVPUSH Q8H-IV [facility] Last Admin: 06/27/17 02:54 Dose: 40 mg Non-Formulary Medication (Cholecalciferol (Vitamin D3) [Optimal D3]) 50,000 unit PO WEEKLY [facility] Pantoprazole Sodium (Protonix -) 20 mg PO DAILY [facility] Rosuvastatin Calcium (Crestor -) 20 mg PO HS [facility] Last Admin: 06/26/17 22:05 Dose: 20 mg Sitagliptin Phosphate (Januvia -) 50 mg PO DAILY@0700 [facility] Last Admin: 06/27/17 06:17 Dose: 50 mg Valsartan (Diovan -) 320 mg PO DAILY [facility] Last Admin: 06/26/17 10:03 Dose: 320 mg - Objective Vital Signs: Vital Signs Temperature 97.7 F 06/27/17 05:20 Pulse Rate 85 06/27/17 05:20 Respiratory Rate 22 06/27/17 05:20 Blood Pressure 153/80 06/27/17 05:20 O2 Sat by Pulse Oximetry (%) 87 L 06/26/17 21:00 Constitutional: Yes: Well Nourished, No Distress, Calm Cardiovascular: Yes: Regular Rate and Rhythm Respiratory: Yes: Diminished (BLL), On Nasal O2, SOB on Exertion Gastrointestinal: Yes: Normal Bowel Sounds, Soft Musculoskeletal: Yes: WNL Extremities: Yes: WNL Edema: No Peripheral Pulses WNL: Yes Neurological: Yes: Alert, Oriented Psychiatric: Yes: Alert, Oriented Labs: CBC, BMP 06/27/17 06:40 INR, PTT INR 1.19 (0.82-1.09) H 06/22/17 10:13 Problem List - Problems (1) Atrial fibrillation Assessment/Plan: -on alf AC -pradaxa -controlled Code(s): I48.91 - UNSPECIFIED ATRIAL FIBRILLATION Qualifiers: Atrial fibrillation type: chronic Qualified Code(s): I48.2 - Chronic atrial fibrillation (2) COPD exacerbation Assessment/Plan: -bronchodilators -tapering IV steroids -nasal O2 PRN -Pulmonary consult Code(s): J44.1 - CHRONIC OBSTRUCTIVE PULMONARY DISEASE W (ACUTE) EXACERBATION (3) Pneumonia Assessment/Plan: LLL CAP -ID consult -IV abx -PO abx Code(s): J18.9 - PNEUMONIA, UNSPECIFIED ORGANISM (4) Diabetes mellitus, insulin dependent (IDDM), uncontrolled Assessment/Plan: -IV abx to be mixed in NS-done -Tapering steroids -A1c pending -on Januvia and glyburide -Endocrine consult -insulin sliding scale -diabetic diet Code(s): E10.65 - TYPE 1 DIABETES MELLITUS WITH HYPERGLYCEMIA Qualifiers: Diabetes mellitus complication status: with unspecified complications Qualified Code(s): E10.8 - Type 1 diabetes mellitus with unspecified complications (5) CHF (congestive heart failure) Assessment/Plan: -seen by cardiology -IV diuresis Code(s): I50.9 - HEART FAILURE, UNSPECIFIED Assessment/Plan see problem list Physical therapy
[2017-06-27] MEDS ORDERED: cefTRIAXone SODIUM 1 GM VIAL ONE (09:56)
[2017-06-27] MEDS ORDERED: SODIUM CHLORIDE 100 ML IVPB ONE (09:56)
[2017-06-27] MEDS ORDERED: PT OWN MED DRAWER 7, Y5N ONE (09:57)
[2017-06-27] MEDS: DIGOXIN 0.125 MG TABLET (FP) PO SCH (10:17)
[2017-06-27] MEDS: VALSARTAN 160 MG TABLET (UD) PO SCH (10:17)
[2017-06-27] MEDS: ASPIRIN 81 MG CHEWABLE TABLETS PO SCH (10:17)
[2017-06-27] MEDS: DOXYCYCLINE HYCLATE 100 MG CAPSULE PO SCH ×2 (10:17→17:28)
[2017-06-27] MEDS: CEFTRIAXONE 1 GM in SODIUM CHLORIDE 100 ML IVPB SCH (10:17)
[2017-06-27] MEDS: ALPRAZolam 0.25 MG TABLET PO SCH ×2 (10:18→21:16)
[2017-06-27] MEDS: DABIGATRAN ETEXILATE MESYLATE 150 MG CAPSULE PO SCH ×2 (10:18→21:16)
[2017-06-27] MEDS: PANTOPRAZOLE 20 MG TABLET (FP) PO SCH (10:18)
[2017-06-27 12:12] LABS: PLATELET ESTIMATE NORMAL
--- NOTE | 2017-06-27 12:55 | PN ---
Progress Note (short form) - Note Progress Note: PULMONARY Breathing continues to slowly improve. Less cough and wheezing. Last Vital Signs Temp Pulse Resp BP Pulse Ox 97.5 F L 85 20 135/72 87 L 06/27/17 10:13 06/27/17 10:17 06/27/17 10:13 06/27/17 10:13 06/26/17 21:00 Gen: less tachypneic Heart: RRR Lung: less rhonchi, wheezes Abd: soft, nontender Ext: no edema CBC, BMP 06/27/17 06:40 06/27/17 06:40 Active Medications Albuterol Sulfate (Ventolin 0.042trength) -) 1 amp NEB Q4H PRN PRN Reason: SHORT OF BREATH/WHEEZING Last Admin: 06/26/17 07:15 Dose: 1 amp Albuterol/Ipratropium (Duoneb -) 1 amp NEB RQID [facility] Last Admin: 06/27/17 11:20 Dose: 1 amp Alprazolam (Xanax -) 0.25 mg PO BID [facility] Last Admin: 06/27/17 10:18 Dose: 0.25 mg Aspirin (Asa -) 81 mg PO DAILY [facility] Last Admin: 06/27/17 10:17 Dose: 81 mg Dabigatran (Pradaxa -) 150 mg PO BID [facility] Last Admin: 06/27/17 10:18 Dose: 150 mg Digoxin (Lanoxin -) 0.125 mg PO DAILY [facility] Last Admin: 06/27/17 10:17 Dose: 0.125 mg Diltiazem HCl (Cardizem Cd -) 240 mg PO DAILY [facility] Last Admin: 06/27/17 10:17 Dose: 240 mg Docusate Sodium (Colace -) 100 mg PO HS [facility] Last Admin: 06/26/17 22:06 Dose: 100 mg Doxycycline Hyclate (Vibramycin -) 100 mg PO BID@1000,1800 [facility] Last Admin: 06/27/17 10:17 Dose: 100 mg Furosemide (Lasix Injection -) 40 mg IVPUSH BID@0600,1400 [facility] Last Admin: 06/27/17 06:17 Dose: 40 mg Glyburide (Diabeta -) 5 mg PO BIDAC [facility] Last Admin: 06/27/17 06:18 Dose: 5 mg Ceftriaxone Sodium 1 gm/ (Sodium Chloride) 100 mls @ 200 mls/hr IVPB DAILY [facility] PRN Reason: Protocol Last Admin: 06/27/17 10:17 Dose: 200 mls/hr Insulin Aspart (Novolog Vial Sliding Scale -) 1 vial SQ ACHS [facility] PRN Reason: Protocol Last Admin: 06/27/17 12:48 Dose: 5 unit Insulin Detemir (Levemir Vial) 35 units SQ AM [facility] Last Admin: 06/27/17 06:18 Dose: 35 unit Insulin Detemir (Levemir Vial) 25 units SQ HS [facility] Last Admin: 06/26/17 22:04 Dose: 25 unit Magnesium Hydroxide (Milk Of Magnesia -) 30 ml PO Q8H PRN PRN Reason: INDIGESTION Methylprednisolone Sodium Succinate (Solu-Medrol -) 40 mg IVPUSH Q8H-IV [facility] Last Admin: 06/27/17 10:15 Dose: 40 mg Methylprednisolone Sodium Succinate (Solu-Medrol -) 40 mg IVPUSH BID [facility] Non-Formulary Medication (Cholecalciferol (Vitamin D3) [Optimal D3]) 50,000 unit PO WEEKLY [facility] Pantoprazole Sodium (Protonix -) 20 mg PO DAILY [facility] Last Admin: 06/27/17 10:18 Dose: 20 mg Rosuvastatin Calcium (Crestor -) 20 mg PO HS [facility] Last Admin: 06/26/17 22:05 Dose: 20 mg Sitagliptin Phosphate (Januvia -) 50 mg PO DAILY@0700 [facility] Last Admin: 06/27/17 06:17 Dose: 50 mg Valsartan (Diovan -) 320 mg PO DAILY [facility] Last Admin: 06/27/17 10:17 Dose: 320 mg A/P Pneumonia Acute COPD Exacerbation Chronic Hypoxic Respiratory Failure LV Diastolic Dysfunction Atrial Fibrillation Mitral Regurgitation CAD HTN DM Hyperlipidemia - continue antibiotics - medrol taper - glucose control while on systemic steroids - inhaled bronchodilators - O2 to keep SpO2 >90% - rate control - continue anticoagulation Problem List - Problems (1) COPD exacerbation Code(s): J44.1 - CHRONIC OBSTRUCTIVE PULMONARY DISEASE W (ACUTE) EXACERBATION (2) Pneumonia Code(s): J18.9 - PNEUMONIA, UNSPECIFIED ORGANISM (3) CAD S/P percutaneous coronary angioplasty Code(s): I25.10 - ATHSCL HEART DISEASE OF [place] CORONARY ARTERY W/O ANG PCTRS; Z98.61 - CORONARY ANGIOPLASTY STATUS (4) Dyslipidemia Code(s): E78.5 - HYPERLIPIDEMIA, UNSPECIFIED (5) HTN (hypertension) Code(s): I10 - ESSENTIAL (PRIMARY) HYPERTENSION Qualifiers: Hypertension type: essential hypertension Qualified Code(s): I10 - Essential (primary) hypertension (6) Mitral valve regurgitation Code(s): I34.0 - NONRHEUMATIC MITRAL (VALVE) INSUFFICIENCY Qualifiers: Cardiac valve disease etiology: etiology unspecified Qualified Code(s): I34.0 - Nonrheumatic mitral (valve) insufficiency
[2017-06-27] MEDS ORDERED: INSULIN (NOVOLOG) ASPART 100 UNITS/ML 10ML VIAL ONE (20:22)
[2017-06-27] MEDS: DOCUSATE SODIUM 100 MG CAPSULE (FP) PO SCH (21:16)
[2017-06-27] MEDS: ROSUVASTATIN CA 20 MG TABLET (FP) PO SCH (21:17)
[2017-06-28] MEDS: methylPREDNISolone NA SUCC 40 MG/1 ML VIAL IVPUSH SCH ×4 (04:16→21:16)
[2017-06-28] MEDS: FUROSEMIDE 40 MG/4 ML INJECTABLE VIAL IVPUSH SCH ×2 (05:49→13:45)
[2017-06-28] MEDS: INSULIN (LEVEMIR) 100 UNITS/ML UNITS SQ SCH ×2 (06:39→21:16)
[2017-06-28] MEDS: glyBURIDE 5 MG TABLET (UD) PO SCH ×2 (06:39→16:37)
[2017-06-28] MEDS: sitaGLIPtin PHOSPHATE 50 MG TABLET PO SCH (06:39)
[2017-06-28] MEDS: INSULIN SLIDING SCALE (NOVOLOG) 1 VIAL SQ SCH ×4 (06:39→21:16)
[2017-06-28] MEDS ORDERED: INSULIN (NOVOLOG) ASPART 100 UNITS/ML 10ML VIAL ONE ×3 (06:46→20:07)
[2017-06-28] MEDS: ALBUTEROL SO4 2.5/IPRATROPIUM 0.5 INH SOL 3 ML VIAL.NEB. NEB SCH ×4 (07:16→19:50)
[2017-06-28] MEDS ORDERED: cefTRIAXone SODIUM 1 GM VIAL ONE (10:12)
[2017-06-28] MEDS ORDERED: SODIUM CHLORIDE 100 ML IVPB ONE (10:12)
[2017-06-28] MEDS: CEFTRIAXONE 1 GM in SODIUM CHLORIDE 100 ML IVPB SCH (10:35)
[2017-06-28] MEDS: ASPIRIN 81 MG CHEWABLE TABLETS PO SCH (10:36)
[2017-06-28] MEDS: DIGOXIN 0.125 MG TABLET (FP) PO SCH (10:36)
[2017-06-28] MEDS: DOXYCYCLINE HYCLATE 100 MG CAPSULE PO SCH ×2 (10:36→17:24)
[2017-06-28] MEDS: VALSARTAN 160 MG TABLET (UD) PO SCH (10:36)
[2017-06-28] MEDS: ALPRAZolam 0.25 MG TABLET PO SCH ×2 (10:37→21:16)
[2017-06-28] MEDS: DABIGATRAN ETEXILATE MESYLATE 150 MG CAPSULE PO SCH ×2 (10:38→21:14)
[2017-06-28] MEDS: PANTOPRAZOLE 20 MG TABLET (FP) PO SCH (12:19)
--- NOTE | 2017-06-28 12:58 | PN ---
Progress Note (short form) - Note Progress Note: PULMONARY Breathing continues to slowly improve but does not feel ready for rehab. Less cough and wheezing. Last Vital Signs Temp Pulse Resp BP Pulse Ox 97.5 F L 75 20 150/64 91 L 06/28/17 06:00 06/28/17 10:36 06/28/17 06:00 06/28/17 06:00 06/27/17 21:00 Gen: tachypneic with speaking Heart: RRR Lung: decreased breath sounds at the bases Abd: soft, nontender Ext: + edema CBC, BMP 06/27/17 06:40 06/27/17 06:40 Active Medications Albuterol Sulfate (Ventolin 0.042trength) -) 1 amp NEB Q4H PRN PRN Reason: SHORT OF BREATH/WHEEZING Last Admin: 06/26/17 07:15 Dose: 1 amp Albuterol/Ipratropium (Duoneb -) 1 amp NEB RQID [facility] Last Admin: 06/28/17 11:16 Dose: 1 amp Alprazolam (Xanax -) 0.25 mg PO BID [facility] Last Admin: 06/28/17 10:37 Dose: 0.25 mg Aspirin (Asa -) 81 mg PO DAILY [facility] Last Admin: 06/28/17 10:36 Dose: 81 mg Dabigatran (Pradaxa -) 150 mg PO BID [facility] Last Admin: 06/28/17 10:38 Dose: 150 mg Digoxin (Lanoxin -) 0.125 mg PO DAILY [facility] Last Admin: 06/28/17 10:36 Dose: 0.125 mg Diltiazem HCl (Cardizem Cd -) 240 mg PO DAILY [facility] Last Admin: 06/28/17 10:36 Dose: 240 mg Docusate Sodium (Colace -) 100 mg PO HS [facility] Last Admin: 06/27/17 21:16 Dose: 100 mg Doxycycline Hyclate (Vibramycin -) 100 mg PO BID@1000,1800 [facility] Last Admin: 06/28/17 10:36 Dose: 100 mg Ergocalciferol (Drisdol -) 50,000 unit PO Tu@1000 [facility] Furosemide (Lasix Injection -) 40 mg IVPUSH BID@0600,1400 [facility] Last Admin: 06/28/17 05:49 Dose: 40 mg Glyburide (Diabeta -) 5 mg PO BIDAC [facility] Last Admin: 06/28/17 06:39 Dose: 5 mg Ceftriaxone Sodium 1 gm/ (Sodium Chloride) 100 mls @ 200 mls/hr IVPB DAILY [facility] PRN Reason: Protocol Last Admin: 06/28/17 10:35 Dose: 200 mls/hr Insulin Aspart (Novolog Vial Sliding Scale -) 1 vial SQ ACHS [facility] PRN Reason: Protocol Last Admin: 06/28/17 12:18 Dose: Not Given Insulin Detemir (Levemir Vial) 35 units SQ AM [facility] Last Admin: 06/28/17 06:39 Dose: 35 unit Insulin Detemir (Levemir Vial) 25 units SQ HS [facility] Last Admin: 06/27/17 21:21 Dose: 25 unit Magnesium Hydroxide (Milk Of Magnesia -) 30 ml PO Q8H PRN PRN Reason: INDIGESTION Methylprednisolone Sodium Succinate (Solu-Medrol -) 40 mg IVPUSH Q8H-IV [facility] Last Admin: 06/28/17 10:39 Dose: Not Given Methylprednisolone Sodium Succinate (Solu-Medrol -) 40 mg IVPUSH BID [facility] Last Admin: 06/28/17 10:38 Dose: 40 mg Pantoprazole Sodium (Protonix -) 20 mg PO DAILY [facility] Last Admin: 06/28/17 12:19 Dose: 20 mg Rosuvastatin Calcium (Crestor -) 20 mg PO HS [facility] Last Admin: 06/27/17 21:17 Dose: 20 mg Sitagliptin Phosphate (Januvia -) 50 mg PO DAILY@0700 [facility] Last Admin: 06/28/17 06:39 Dose: 50 mg Valsartan (Diovan -) 320 mg PO DAILY [facility] Last Admin: 06/28/17 10:36 Dose: 320 mg A/P Pneumonia Acute COPD Exacerbation Chronic Hypoxic Respiratory Failure LV Diastolic Dysfunction Atrial Fibrillation Mitral Regurgitation CAD HTN DM Hyperlipidemia - continue antibiotics - medrol taper - glucose control while on systemic steroids - inhaled bronchodilators - O2 to keep SpO2 >90% - rate control - continue anticoagulation Problem List - Problems (1) COPD exacerbation Code(s): J44.1 - CHRONIC OBSTRUCTIVE PULMONARY DISEASE W (ACUTE) EXACERBATION (2) Pneumonia Code(s): J18.9 - PNEUMONIA, UNSPECIFIED ORGANISM (3) CAD S/P percutaneous coronary angioplasty Code(s): I25.10 - ATHSCL HEART DISEASE OF [place] CORONARY ARTERY W/O ANG PCTRS; Z98.61 - CORONARY ANGIOPLASTY STATUS (4) Dyslipidemia Code(s): E78.5 - HYPERLIPIDEMIA, UNSPECIFIED (5) HTN (hypertension) Code(s): I10 - ESSENTIAL (PRIMARY) HYPERTENSION Qualifiers: Hypertension type: essential hypertension Qualified Code(s): I10 - Essential (primary) hypertension (6) Mitral valve regurgitation Code(s): I34.0 - NONRHEUMATIC MITRAL (VALVE) INSUFFICIENCY Qualifiers: Cardiac valve disease etiology: etiology unspecified Qualified Code(s): I34.0 - Nonrheumatic mitral (valve) insufficiency
--- NOTE | 2017-06-28 13:21 | PN ---
Progress Note, Physician Chief Complaint: tachypneic while speaking complaining of ankle edema - Current Medication List Current Medications: Active Medications Albuterol Sulfate (Ventolin 0.042trength) -) 1 amp NEB Q4H PRN PRN Reason: SHORT OF BREATH/WHEEZING Last Admin: 06/26/17 07:15 Dose: 1 amp Albuterol/Ipratropium (Duoneb -) 1 amp NEB RQID [facility] Last Admin: 06/28/17 11:16 Dose: 1 amp Alprazolam (Xanax -) 0.25 mg PO BID [facility] Last Admin: 06/28/17 10:37 Dose: 0.25 mg Aspirin (Asa -) 81 mg PO DAILY [facility] Last Admin: 06/28/17 10:36 Dose: 81 mg Dabigatran (Pradaxa -) 150 mg PO BID [facility] Last Admin: 06/28/17 10:38 Dose: 150 mg Digoxin (Lanoxin -) 0.125 mg PO DAILY [facility] Last Admin: 06/28/17 10:36 Dose: 0.125 mg Diltiazem HCl (Cardizem Cd -) 240 mg PO DAILY [facility] Last Admin: 06/28/17 10:36 Dose: 240 mg Docusate Sodium (Colace -) 100 mg PO HS [facility] Last Admin: 06/27/17 21:16 Dose: 100 mg Doxycycline Hyclate (Vibramycin -) 100 mg PO BID@1000,1800 [facility] Last Admin: 06/28/17 10:36 Dose: 100 mg Ergocalciferol (Drisdol -) 50,000 unit PO Tu@1000 [facility] Furosemide (Lasix Injection -) 40 mg IVPUSH BID@0600,1400 [facility] Last Admin: 06/28/17 05:49 Dose: 40 mg Glyburide (Diabeta -) 5 mg PO BIDAC [facility] Last Admin: 06/28/17 06:39 Dose: 5 mg Ceftriaxone Sodium 1 gm/ (Sodium Chloride) 100 mls @ 200 mls/hr IVPB DAILY [facility] PRN Reason: Protocol Last Admin: 06/28/17 10:35 Dose: 200 mls/hr Insulin Aspart (Novolog Vial Sliding Scale -) 1 vial SQ ACHS [facility] PRN Reason: Protocol Last Admin: 06/28/17 12:18 Dose: Not Given Insulin Detemir (Levemir Vial) 35 units SQ AM [facility] Last Admin: 06/28/17 06:39 Dose: 35 unit Insulin Detemir (Levemir Vial) 25 units SQ [facility] Last Admin: 06/27/17 21:21 Dose: 25 unit Magnesium Hydroxide (Milk Of Magnesia -) 30 ml PO Q8H PRN PRN Reason: INDIGESTION Methylprednisolone Sodium Succinate (Solu-Medrol -) 40 mg IVPUSH BID [facility] Last Admin: 06/28/17 10:38 Dose: 40 mg Pantoprazole Sodium (Protonix -) 20 mg PO DAILY [facility] Last Admin: 06/28/17 12:19 Dose: 20 mg Rosuvastatin Calcium (Crestor -) 20 mg PO HS [facility] Last Admin: 06/27/17 21:17 Dose: 20 mg Sitagliptin Phosphate (Januvia -) 50 mg PO DAILY@0700 [facility] Last Admin: 06/28/17 06:39 Dose: 50 mg Valsartan (Diovan -) 320 mg PO DAILY [facility] Last Admin: 06/28/17 10:36 Dose: 320 mg - Objective Vital Signs: Vital Signs Temperature 97.6 F 06/28/17 13:12 Pulse Rate 89 06/28/17 13:12 Respiratory Rate 18 06/28/17 13:12 Blood Pressure 129/60 06/28/17 13:12 O2 Sat by Pulse Oximetry (%) 91 L 06/27/17 21:00 Constitutional: Yes: Calm Cardiovascular: Yes: Pulse Irregular, S1, S2 Respiratory: Yes: Diminished (at bases no wheezing), On Nasal O2 Gastrointestinal: Yes: Normal Bowel Sounds, Soft Edema: Yes Neurological: Yes: Alert, Oriented Labs: CBC, BMP 06/27/17 06:40 06/27/17 06:40 INR, PTT INR 1.19 (0.82-1.09) H 06/22/17 10:13 Problem List - Problems (1) Atrial fibrillation Assessment/Plan: digoxin, caridzem and pradaxa check dig level Code(s): I48.91 - UNSPECIFIED ATRIAL FIBRILLATION Qualifiers: Atrial fibrillation type: chronic Qualified Code(s): I48.2 - Chronic atrial fibrillation (2) COPD (chronic obstructive pulmonary disease) with acute bronchitis Assessment/Plan: iv steriods now BID on oxygen Code(s): J44.0 - CHRONIC OBSTRUCTIVE PULMON DISEASE W ACUTE LOWER RESP INFCT (3) Pneumonia Assessment/Plan: LLL-CAP on rocephin and doxycycline day 7 will stop abx tmw Code(s): J18.9 - PNEUMONIA, UNSPECIFIED ORGANISM (4) CAD S/P percutaneous coronary angioplasty Assessment/Plan: aspirin and statin Code(s): I25.10 - ATHSCL HEART DISEASE OF [place] CORONARY ARTERY W/O ANG PCTRS; Z98.61 - CORONARY ANGIOPLASTY STATUS (5) CHF (congestive heart failure) Assessment/Plan: iv lasix bid for ankle edema repeat labs in am Code(s): I50.9 - HEART FAILURE, UNSPECIFIED (6) Diabetes Assessment/Plan: hgba1c 7.9 bgm noted medrol taper continue current insulin dose bgm will improve with medrol taper Code(s): E11.9 - TYPE 2 DIABETES MELLITUS WITHOUT COMPLICATIONS Qualifiers: Diabetes mellitus type: other specified (including YULISA) Diabetes mellitus mcc insulin 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
--- NOTE | 2017-06-28 14:05 | PN ---
Progress Note (short form) - Note Progress Note: much improved less cough went for a walk eating lunch Vital Signs Period Temp Pulse Resp BP Sys/Lam Pulse Ox Last 24 Hr 97.5 F-97.7 F 75-89 18-28 129-150/60-98 91 cor-rrr lungs decreased bs at bases abd soft,nt ext trace edema CBC, BMP 06/27/17 06:40 06/27/17 06:40 Microbiology 06/22/17 10:13 Blood - Peripheral Venous Blood Culture - Final NO GROWTH AFTER 5 DAYS INCUBATION 06/22/17 10:13 Blood - Peripheral Venous Blood Culture - Final NO GROWTH AFTER 5 DAYS INCUBATION 06/26/17 12:00 Nasopharyngeal Swab Respiratory Syncytial Virus Ag - Final 06/22/17 14:05 Urine - Urine Clean Catch Urine Culture - Final Diphtheroid/Corynebacterium 06/22/17 14:05 Urine For Antigen Detection Legionella Antigen - Final 06/22/17 14:05 Urine For Antigen Detection Streptococcus pneumoniae Antigen (M - Final 06/22/17 14:05 Nasopharyngeal Swab Influenza Types A,B Antigen (CESAR) - Final 06/22/17 14:05 Nasopharyngeal Swab - Final a/p LLL pneumonia -CAP COPD CHF cultures -negative influenza screen negative urinary antigens negative antibiotic day #7 rocephin/doxycycline d/c antibiotics after today please call back if needed Problem List - Problems (1) Fever Code(s): R50.9 - FEVER, UNSPECIFIED (2) Pneumonia Code(s): J18.9 - PNEUMONIA, UNSPECIFIED ORGANISM (3) COPD (chronic obstructive pulmonary disease) Code(s): J44.9 - CHRONIC OBSTRUCTIVE PULMONARY DISEASE, UNSPECIFIED Qualifiers: COPD type: COPD with acute exacerbation Qualified Code(s): J44.1 - Chronic obstructive pulmonary disease with (acute) exacerbation (4) CHF (congestive heart failure) Code(s): I50.9 - HEART FAILURE, UNSPECIFIED
[2017-06-28] MEDS: MAGNESIUM HYDROX 2400MG/30ML ORAL SUSPENSION 30 ML CUP PO PRN (15:00)
[2017-06-28] MEDS: DOCUSATE SODIUM 100 MG CAPSULE (FP) PO SCH (21:14)
[2017-06-28] MEDS: ROSUVASTATIN CA 20 MG TABLET (FP) PO SCH (21:15)
[2017-06-29] MEDS: FUROSEMIDE 40 MG/4 ML INJECTABLE VIAL IVPUSH SCH (06:14)
[2017-06-29] MEDS: INSULIN (LEVEMIR) 100 UNITS/ML UNITS SQ SCH ×2 (06:14→22:08)
[2017-06-29] MEDS: INSULIN SLIDING SCALE (NOVOLOG) 1 VIAL SQ SCH ×4 (06:14→21:35)
[2017-06-29] MEDS: glyBURIDE 5 MG TABLET (UD) PO SCH ×2 (06:14→17:19)
[2017-06-29] MEDS: sitaGLIPtin PHOSPHATE 50 MG TABLET PO SCH (06:14)
[2017-06-29] MEDS: ALBUTEROL SO4 2.5/IPRATROPIUM 0.5 INH SOL 3 ML VIAL.NEB. NEB SCH ×4 (07:35→20:40)
[2017-06-29 08:04] LABS: HEMATOCRIT 32.4 % (32.4-45.2); HEMOGLOBIN 10.6 GM/dL (10.7-15.3); MCH 28.2 pg (25.7-33.7); MCHC 32.9 g/dl (32.0-36.0); MEAN CELL VOLUME 85.8 fl (80-96); MEAN PLT VOLUME 9.5 fl (7.5-11.1); PLATELET COUNT 232 K/MM3 (134-434); RBC 3.77 M/mm3 (3.60-5.2); RDW 20.8 % (11.6-15.6); WHITE BLOOD COUNT 9.1 K/mm3 (4.0-10.0)
[2017-06-29 08:58] LABS: ANION GAP 11 (8-16); BLOOD UREA NITROGEN 59 mg/dL (7-18); CHLORIDE 100 mmol/L (98-107); CO2 33 mmol/L (21-32); CREATININE 1.3 mg/dL (0.55-1.02); GLUCOSE,RANDOM 120 mg/dL (74-106); SODIUM 144 mmol/L (136-145)
[2017-06-29 08:59] LABS: ALBUMIN 2.9 g/dl (3.4-5.0); ALK PHOS 56 U/L (45-117); BILIRUBIN,TOTAL 0.8 mg/dL (0.2-1.0); CALCIUM 8.3 mg/dL (8.5-10.1); SGOT/AST 27 U/L (15-37); SGPT/ALT 30 U/L (12-78); TOT PROT 6.1 g/dl (6.4-8.2)
[2017-06-29 09:24] LABS: ANISOCYTOSIS 2+; MACROCYTOSIS 1+; OVALOCYTE 2+; PLATELET ESTIMATE NORMAL; TEAR DROP CELLS 1+
--- NOTE | 2017-06-29 10:17 | PN ---
Progress Note (short form) - Note Progress Note: PULMONARY Breathing better today. No significant cough or wheezing. c/o constipation. Last Vital Signs Temp Pulse Resp BP Pulse Ox 97.5 F L 76 20 122/59 90 L 06/29/17 06:00 06/29/17 06:00 06/29/17 06:00 06/29/17 06:00 06/28/17 20:53 Gen: tachypneic with speaking Heart: RRR Lung: decreased breath sounds at the bases, no wheezes Abd: soft, nontender Ext: + edema CBC, BMP 06/29/17 06:00 06/29/17 06:00 Active Medications Albuterol Sulfate (Ventolin 0.042trength) -) 1 amp NEB Q4H PRN PRN Reason: SHORT OF BREATH/WHEEZING Last Admin: 06/26/17 07:15 Dose: 1 amp Albuterol/Ipratropium (Duoneb -) 1 amp NEB RQID [facility] Last Admin: 06/29/17 07:35 Dose: 1 amp Alprazolam (Xanax -) 0.25 mg PO BID [facility] Last Admin: 06/28/17 21:16 Dose: Not Given Aspirin (Asa -) 81 mg PO DAILY [facility] Last Admin: 06/28/17 10:36 Dose: 81 mg Dabigatran (Pradaxa -) 150 mg PO BID [facility] Last Admin: 06/28/17 21:14 Dose: 150 mg Digoxin (Lanoxin -) 0.125 mg PO DAILY [facility] Last Admin: 06/28/17 10:36 Dose: 0.125 mg Diltiazem HCl (Cardizem Cd -) 240 mg PO DAILY [facility] Last Admin: 06/28/17 10:36 Dose: 240 mg Docusate Sodium (Colace -) 100 mg PO HS [facility] Last Admin: 06/28/17 21:14 Dose: 100 mg Doxycycline Hyclate (Vibramycin -) 100 mg PO BID@1000,1800 [facility] Last Admin: 06/28/17 17:24 Dose: 100 mg Ergocalciferol (Drisdol -) 50,000 unit PO Tu@1000 [facility] Furosemide (Lasix Injection -) 40 mg IVPUSH BID@0600,1400 [facility] Last Admin: 06/29/17 06:14 Dose: 40 mg Glyburide (Diabeta -) 5 mg PO BIDAC [facility] Last Admin: 06/29/17 06:14 Dose: 5 mg Ceftriaxone Sodium 1 gm/ (Sodium Chloride) 100 mls @ 200 mls/hr IVPB DAILY [facility] PRN Reason: Protocol Last Admin: 06/28/17 10:35 Dose: 200 mls/hr Insulin Aspart (Novolog Vial Sliding Scale -) 1 vial SQ ACHS [facility] PRN Reason: Protocol Last Admin: 06/29/17 06:14 Dose: Not Given Insulin Detemir (Levemir Vial) 35 units SQ AM [facility] Last Admin: 06/29/17 06:14 Dose: Not Given Insulin Detemir (Levemir Vial) 25 units SQ HS [facility] Last Admin: 06/28/17 21:16 Dose: Not Given Magnesium Hydroxide (Milk Of Magnesia -) 30 ml PO Q8H PRN PRN Reason: INDIGESTION Last Admin: 06/28/17 15:00 Dose: 30 ml Methylprednisolone Sodium Succinate (Solu-Medrol -) 40 mg IVPUSH BID [facility] Last Admin: 06/28/17 21:16 Dose: 40 mg Pantoprazole Sodium (Protonix -) 20 mg PO DAILY [facility] Last Admin: 06/28/17 12:19 Dose: 20 mg Rosuvastatin Calcium (Crestor -) 20 mg PO HS [facility] Last Admin: 06/28/17 21:15 Dose: 20 mg Sitagliptin Phosphate (Januvia -) 50 mg PO DAILY@0700 [facility] Last Admin: 06/29/17 06:14 Dose: 50 mg Valsartan (Diovan -) 320 mg PO DAILY [facility] Last Admin: 06/28/17 10:36 Dose: 320 mg A/P Pneumonia Acute COPD Exacerbation Chronic Hypoxic Respiratory Failure LV Diastolic Dysfunction Atrial Fibrillation Mitral Regurgitation CAD HTN DM Hyperlipidemia - bowel regimen - continue antibiotics - will change steroids to PO prednisone, can taper as outpt - glucose control while on systemic steroids - inhaled bronchodilators - O2 to keep SpO2 >90% - rate control - continue anticoagulation Problem List - Problems (1) COPD exacerbation Code(s): J44.1 - CHRONIC OBSTRUCTIVE PULMONARY DISEASE W (ACUTE) EXACERBATION (2) Pneumonia Code(s): J18.9 - PNEUMONIA, UNSPECIFIED ORGANISM (3) CAD S/P percutaneous coronary angioplasty Code(s): I25.10 - ATHSCL HEART DISEASE OF [place] CORONARY ARTERY W/O ANG PCTRS; Z98.61 - CORONARY ANGIOPLASTY STATUS (4) Dyslipidemia Code(s): E78.5 - HYPERLIPIDEMIA, UNSPECIFIED (5) HTN (hypertension) Code(s): I10 - ESSENTIAL (PRIMARY) HYPERTENSION Qualifiers: Hypertension type: essential hypertension Qualified Code(s): I10 - Essential (primary) hypertension (6) Mitral valve regurgitation Code(s): I34.0 - NONRHEUMATIC MITRAL (VALVE) INSUFFICIENCY Qualifiers: Cardiac valve disease etiology: etiology unspecified Qualified Code(s): I34.0 - Nonrheumatic mitral (valve) insufficiency
[2017-06-29] MEDS ORDERED: SODIUM CHLORIDE 100 ML IVPB ONE (10:20)
[2017-06-29] MEDS ORDERED: cefTRIAXone SODIUM 1 GM VIAL ONE (10:20)
[2017-06-29] MEDS: DOXYCYCLINE HYCLATE 100 MG CAPSULE PO SCH (10:35)
[2017-06-29] MEDS: ASPIRIN 81 MG CHEWABLE TABLETS PO SCH (10:35)
[2017-06-29] MEDS: VALSARTAN 160 MG TABLET (UD) PO SCH (10:35)
[2017-06-29] MEDS: PANTOPRAZOLE 20 MG TABLET (FP) PO SCH (10:35)
[2017-06-29] MEDS: ALPRAZolam 0.25 MG TABLET PO SCH ×2 (10:35→22:30)
[2017-06-29] MEDS: DIGOXIN 0.125 MG TABLET (FP) PO SCH (10:35)
[2017-06-29] MEDS: CEFTRIAXONE 1 GM in SODIUM CHLORIDE 100 ML IVPB SCH (10:36)
[2017-06-29] MEDS ORDERED: PT OWN MED DRAWER 7, Y5N ONE (10:39)
[2017-06-29] MEDS: DABIGATRAN ETEXILATE MESYLATE 150 MG CAPSULE PO SCH ×2 (10:39→21:26)
[2017-06-29] MEDS: predniSONE 20 MG TABLET (UD) PO SCH (10:39)
[2017-06-29] MEDS: ERGOCALCIFEROL (VITAMIN D2) 50,000 UNIT CAPSULE (FP) PO SCH (10:40)
[2017-06-29] MEDS: MAGNESIUM HYDROX 2400MG/30ML ORAL SUSPENSION 30 ML CUP PO PRN (11:45)
[2017-06-29] MEDS: methylPREDNISolone NA SUCC 40 MG/1 ML VIAL IVPUSH SCH (12:03)
[2017-06-29] MEDS ORDERED: INSULIN (NOVOLOG) ASPART 100 UNITS/ML 10ML VIAL ONE (12:05)
[2017-06-29] MEDS ORDERED: MINERAL OIL ENEMA 133 ML ENEMA PR ONE (12:32)
--- NOTE | 2017-06-29 12:40 | DS ---
Physical Examination Vital Signs: Vital Signs Temperature 97.5 F L 06/29/17 06:00 Pulse Rate 93 H 06/29/17 10:35 Respiratory Rate 20 06/29/17 06:00 Blood Pressure 122/59 06/29/17 06:00 O2 Sat by Pulse Oximetry (%) 90 L 06/28/17 20:53 Constitutional: Yes: Calm Cardiovascular: Yes: Pulse Irregular, S1, S2 Respiratory: Yes: CTA Bilaterally (no wheezing), Diminished (at bases) Gastrointestinal: Yes: Normal Bowel Sounds, Soft Edema: Yes (ankle edema) Neurological: Yes: Alert, Oriented Labs: CBC, BMP 06/29/17 06:00 06/29/17 06:00 Discharge Summary Reason For Visit: PNEUMONIA Current Active Problems Atrial fibrillation (Acute) COPD (chronic obstructive pulmonary disease) with acute bronchitis (Acute) COPD exacerbation (Acute) Fever (Acute) Pneumonia (Acute) Hospital Course: - Admission History of Present Illness: 82yo female with h/o HTN, hyperlipidemia, DM, COPD, chronic hypoxic respiratory failure on home O2, CAD s/p stents, atrial fibrillation, LV diastolic dysfunction, severe mitral regurgitation who was admitted with worsening shortness of breath x "few days." Denies chest pain or palpitations. No fevers, chills or sweats but febrile to 102 on presentation. Reports her son experiencing a "croup cough" for the past 10 days. States her legs were more swollen but was told by her PMD to increase her diuretic dose with improvement in leg swelling but not her shortness of breath. +nonproductive cough and wheezing. Uses her Advair intermittently, but does use her nebulizers. She is a long time smoker, smoked for 60 years, quit 4 years ago. - Past Medical History Cardiovascular: Yes: AFIB, CAD (S/P STENTING), CHF, HTN, Hyperlipdemia Pulmonary: Yes: COPD, O2 Dependent Musculoskeletal: Yes: Chronic low back pain Endocrine: Yes: Diabetes Mellitus imaging: CHest CT moderate sever interstitial lung disease consolidation left lung, and cardiomegaly and pleural effusion hospital course: admitted for LLL- cAP got 7 days of rocephin and doxycycline chf/ankle edema iv lasix bid now change to po lasix bid afib on pradaxa, rate control with cardizem copd exacerbation iv steroids now change to po prednsione constipation mineral oil enema and miralax to go [facility] [place] for snf Condition: Improved - Instructions Diet, Activity, Other Instructions: check BMP and cbc in one week prednsione taper 40mg po daily for 3 days then 30mg po daily for 2 days then 20mg po daily for 2 days 10mg po daily for 2 days then stop Referrals: Aman Russell MD [Primary Care Provider] - Disposition: SNF FACILITY - Home Medications Comprehensive Discharge Medication List: Ambulatory Orders Diltiazem Cd [Cardizem Cd -] 240 mg PO DAILY 11/15/16 Glyburide 5 mg PO BID 11/15/16 Metformin HCl 500 mg PO BID 11/15/16 Rosuvastatin [Crestor -] 20 mg PO DAILY 11/15/16 Valsartan 320 mg PO DAILY 11/15/16 Albuterol 2.5/Ipratropium 0.5 [Duoneb -] 1 amp NEB QIDR amp 11/19/16 Aspirin [ASA -] 81 mg PO DAILY #30 tab.chew 11/19/16 Furosemide [Lasix -] 60 mg PO DAILY tablet 11/19/16 Cholecalciferol (Vitamin D3) [Optimal D3] 50,000 unit PO WEEKLY 06/22/17 Dabigatran Etexilate Mesylate [Pradaxa -] 150 mg PO BID 06/22/17 Sitagliptin Phosphate [Januvia] 50 mg PO DAILY@0700 06/22/17 Fluticasone/Salmeterol [Advair 250-50 Diskus] 1 puff PO BID 06/25/17
--- NOTE | 2017-06-29 12:42 | PN ---
Progress Note (short form) - Note Progress Note: patient complaining of no bm for 3 days today less tachypneic while talking plan to dc to [facility] [place] am spoke to daughter Birdie yesterday and explained her the plan Problem List - Problems (1) Atrial fibrillation Code(s): I48.91 - UNSPECIFIED ATRIAL FIBRILLATION Qualifiers: Atrial fibrillation type: chronic Qualified Code(s): I48.2 - Chronic atrial fibrillation (2) COPD (chronic obstructive pulmonary disease) with acute bronchitis Code(s): J44.0 - CHRONIC OBSTRUCTIVE PULMON DISEASE W ACUTE LOWER RESP INFCT (3) Pneumonia Code(s): J18.9 - PNEUMONIA, UNSPECIFIED ORGANISM (4) CAD S/P percutaneous coronary angioplasty Code(s): I25.10 - ATHSCL HEART DISEASE OF [place] CORONARY ARTERY W/O ANG PCTRS; Z98.61 - CORONARY ANGIOPLASTY STATUS (5) CHF (congestive heart failure) Code(s): I50.9 - HEART FAILURE, UNSPECIFIED (6) Diabetes Code(s): E11.9 - TYPE 2 DIABETES MELLITUS WITHOUT COMPLICATIONS Qualifiers: Diabetes mellitus type: other specified (including YULISA) Diabetes mellitus snf insulin use: with snf use Diabetes mellitus complication status: with unspecified complications Qualified Code(s): E13.8 - Other specified diabetes mellitus with unspecified complications
[2017-06-29] MEDS: FUROSEMIDE 40 MG TABLET (FP) PO SCH (15:14)
[2017-06-29] MEDS: POLYETHYLENE GLYCOL 3350 119 GM BTL PO SCH (15:14)
[2017-06-29] MEDS: ROSUVASTATIN CA 20 MG TABLET (FP) PO SCH (21:26)
[2017-06-29] MEDS: DOCUSATE SODIUM 100 MG CAPSULE (FP) PO SCH (21:26)
[2017-06-29] MEDS ORDERED: INSULIN (LEVEMIR) 100 UNITS/ML UNITS SQ ONE (22:04)
[2017-06-30] MEDS: FUROSEMIDE 40 MG TABLET (FP) PO SCH (06:13)
[2017-06-30] MEDS: INSULIN (LEVEMIR) 100 UNITS/ML UNITS SQ SCH ×2 (06:15→21:53)
[2017-06-30] MEDS: INSULIN SLIDING SCALE (NOVOLOG) 1 VIAL SQ SCH ×4 (06:15→21:51)
[2017-06-30] MEDS: glyBURIDE 5 MG TABLET (UD) PO SCH ×2 (07:58→16:35)
[2017-06-30] MEDS: sitaGLIPtin PHOSPHATE 50 MG TABLET PO SCH (07:58)
[2017-06-30] MEDS: ALBUTEROL SO4 2.5/IPRATROPIUM 0.5 INH SOL 3 ML VIAL.NEB. NEB SCH ×2 (08:14→11:30)
[2017-06-30] MEDS ORDERED: PT OWN MED DRAWER 7, Y5N ONE ×2 (10:00→21:58)
[2017-06-30] MEDS: PANTOPRAZOLE 20 MG TABLET (FP) PO SCH (10:06)
[2017-06-30] MEDS: predniSONE 20 MG TABLET (UD) PO SCH (10:06)
[2017-06-30] MEDS: POLYETHYLENE GLYCOL 3350 119 GM BTL PO SCH (10:06)
[2017-06-30] MEDS: ASPIRIN 81 MG CHEWABLE TABLETS PO SCH (10:06)
[2017-06-30] MEDS: DIGOXIN 0.125 MG TABLET (FP) PO SCH (10:06)
[2017-06-30] MEDS: VALSARTAN 160 MG TABLET (UD) PO SCH (10:06)
[2017-06-30] MEDS: ALPRAZolam 0.25 MG TABLET PO SCH (10:07)
[2017-06-30] MEDS: DABIGATRAN ETEXILATE MESYLATE 150 MG CAPSULE PO SCH ×2 (10:07→21:59)
--- NOTE | 2017-06-30 11:43 | PN ---
Progress Note, Physician Chief Complaint: Pneumonia COPD exacerbation CHF History of Present Illness: NAD, in bed, feels better today No wheezing, minimal coughing tapering steroids ID consult Pulmonary on board had hypoxic event yesterday, Nasal O2 increased to 4lpm to keep Spo2>90% - Current Medication List Current Medications: Active Medications Albuterol Sulfate (Ventolin 0.042trength) -) 1 amp NEB Q4H PRN PRN Reason: SHORT OF BREATH/WHEEZING Last Admin: 06/26/17 07:15 Dose: 1 amp Albuterol/Ipratropium (Duoneb -) 1 amp NEB RQID [facility] Last Admin: 06/30/17 11:30 Dose: 1 amp Aspirin (Asa -) 81 mg PO DAILY [facility] Last Admin: 06/30/17 10:06 Dose: 81 mg Dabigatran (Pradaxa -) 150 mg PO BID [facility] Last Admin: 06/30/17 10:07 Dose: 150 mg Digoxin (Lanoxin -) 0.125 mg PO DAILY [facility] Last Admin: 06/30/17 10:06 Dose: 0.125 mg Diltiazem HCl (Cardizem Cd -) 240 mg PO DAILY [facility] Last Admin: 06/30/17 10:06 Dose: 240 mg Docusate Sodium (Colace -) 300 mg PO HS [facility] Last Admin: 06/29/17 21:26 Dose: 300 mg Ergocalciferol (Drisdol -) 50,000 unit PO Tu@1000 [facility] Last Admin: 06/29/17 10:40 Dose: 50,000 unit Furosemide (Lasix -) 40 mg PO BID@0600,1400 [facility] Last Admin: 06/30/17 06:13 Dose: 40 mg Glyburide (Diabeta -) 5 mg PO BIDAC [facility] Last Admin: 06/30/17 07:58 Dose: 5 mg Insulin Aspart (Novolog Vial Sliding Scale -) 1 vial SQ ACHS [facility] PRN Reason: Protocol Last Admin: 06/30/17 11:18 Dose: Not Given Insulin Detemir (Levemir Vial) 35 units SQ AM [facility] Last Admin: 06/30/17 06:15 Dose: Not Given Insulin Detemir (Levemir Vial) 25 units SQ HS [facility] Last Admin: 06/29/17 22:08 Dose: 25 unit Magnesium Hydroxide (Milk Of Magnesia -) 30 ml PO Q8H PRN PRN Reason: INDIGESTION Last Admin: 06/29/17 11:45 Dose: 30 ml Pantoprazole Sodium (Protonix -) 20 mg PO DAILY [facility] Last Admin: 06/30/17 10:06 Dose: 20 mg Polyethylene Glycol (Miralax (For Daily Use) -) 17 gm PO DAILY [facility] Last Admin: 06/30/17 10:06 Dose: 17 gm Prednisone (Deltasone -) 40 mg PO DAILY [facility] Last Admin: 06/30/17 10:06 Dose: 40 mg Rosuvastatin Calcium (Crestor -) 20 mg PO HS [facility] Last Admin: 06/29/17 21:26 Dose: 20 mg Sitagliptin Phosphate (Januvia -) 50 mg PO DAILY@0700 [facility] Last Admin: 06/30/17 07:58 Dose: 50 mg Valsartan (Diovan -) 320 mg PO DAILY [facility] Last Admin: 06/30/17 10:06 Dose: 320 mg - Objective Vital Signs: Vital Signs Temperature 98.2 F 06/30/17 10:00 Pulse Rate 80 06/30/17 10:06 Respiratory Rate 22 06/30/17 10:00 Blood Pressure 144/85 06/30/17 10:00 O2 Sat by Pulse Oximetry (%) 91 L 06/30/17 09:00 Constitutional: Yes: Well Nourished, No Distress, Calm Cardiovascular: Yes: Pulse Irregular Respiratory: Yes: Diminished (BLL), SOB on Exertion Musculoskeletal: Yes: Muscle Weakness Extremities: Yes: WNL Edema: No Peripheral Pulses WNL: Yes Neurological: Yes: Alert, Oriented Psychiatric: Yes: Alert, Oriented Labs: CBC, BMP 06/29/17 06:00 06/29/17 06:00 INR, PTT INR 1.19 (0.82-1.09) H 06/22/17 10:13 Problem List - Problems (1) Atrial fibrillation Assessment/Plan: -on jail AC -pradaxa -controlled Code(s): I48.91 - UNSPECIFIED ATRIAL FIBRILLATION Qualifiers: Atrial fibrillation type: chronic Qualified Code(s): I48.2 - Chronic atrial fibrillation (2) COPD exacerbation Assessment/Plan: -bronchodilators -tapering IV steroids -nasal O2 PRN, keep Spo2 >90% -Pulmonary consult -CXR now, if improved or no changes, discharge to SNF Code(s): J44.1 - CHRONIC OBSTRUCTIVE PULMONARY DISEASE W (ACUTE) EXACERBATION (3) Pneumonia Assessment/Plan: LLL CAP -ID consult -finished IV abx -PO tapering steroids Code(s): J18.9 - PNEUMONIA, UNSPECIFIED ORGANISM (4) Diabetes mellitus, insulin dependent (IDDM), uncontrolled Assessment/Plan: -Tapering steroids -A1c 7.9 -on Januvia and glyburide -Endocrine consult -insulin sliding scale -diabetic diet Code(s): E10.65 - TYPE 1 DIABETES MELLITUS WITH HYPERGLYCEMIA Qualifiers: Diabetes mellitus complication status: with unspecified complications Qualified Code(s): E10.8 - Type 1 diabetes mellitus with unspecified complications (5) CHF (congestive heart failure) Assessment/Plan: -seen by cardiology -on Furosemide BID Code(s): I50.9 - HEART FAILURE, UNSPECIFIED Assessment/Plan see problem list Physical therapy
[2017-06-30] MEDS: FUROSEMIDE 40 MG/4 ML INJECTABLE VIAL IVPUSH SCH (14:44)
--- NOTE | 2017-06-30 14:57 | PN ---
Progress Note, Physician History of Present Illness: PULMONARY ALERT,MILDLY DYSPNEC,HYPOXIC ON O2 3L SAT 88% - Current Medication List Current Medications: Active Medications Albuterol Sulfate (Ventolin 0.042trength) -) 1 amp NEB Q4H PRN PRN Reason: SHORT OF BREATH/WHEEZING Last Admin: 06/26/17 07:15 Dose: 1 amp Albuterol/Ipratropium (Duoneb -) 1 amp NEB RQID [facility] Last Admin: 06/30/17 11:30 Dose: 1 amp Aspirin (Asa -) 81 mg PO DAILY [facility] Last Admin: 06/30/17 10:06 Dose: 81 mg Dabigatran (Pradaxa -) 150 mg PO BID [facility] Last Admin: 06/30/17 10:07 Dose: 150 mg Digoxin (Lanoxin -) 0.125 mg PO DAILY [facility] Last Admin: 06/30/17 10:06 Dose: 0.125 mg Diltiazem HCl (Cardizem Cd -) 240 mg PO DAILY [facility] Last Admin: 06/30/17 10:06 Dose: 240 mg Docusate Sodium (Colace -) 300 mg PO HS [facility] Last Admin: 06/29/17 21:26 Dose: 300 mg Ergocalciferol (Drisdol -) 50,000 unit PO Tu@1000 [facility] Last Admin: 06/29/17 10:40 Dose: 50,000 unit Furosemide (Lasix Injection -) 40 mg IVPUSH BID@0600,1400 [facility] Last Admin: 06/30/17 14:44 Dose: 40 mg Glyburide (Diabeta -) 5 mg PO BIDAC [facility] Last Admin: 06/30/17 07:58 Dose: 5 mg Insulin Aspart (Novolog Vial Sliding Scale -) 1 vial SQ ACHS [facility] PRN Reason: Protocol Last Admin: 06/30/17 11:18 Dose: Not Given Insulin Detemir (Levemir Vial) 35 units SQ AM [facility] Last Admin: 06/30/17 06:15 Dose: Not Given Insulin Detemir (Levemir Vial) 25 units SQ HS [facility] Last Admin: 06/29/17 22:08 Dose: 25 unit Magnesium Hydroxide (Milk Of Magnesia -) 30 ml PO Q8H PRN PRN Reason: INDIGESTION Last Admin: 06/29/17 11:45 Dose: 30 ml Pantoprazole Sodium (Protonix -) 20 mg PO DAILY [facility] Last Admin: 06/30/17 10:06 Dose: 20 mg Polyethylene Glycol (Miralax (For Daily Use) -) 17 gm PO DAILY [facility] Last Admin: 06/30/17 10:06 Dose: 17 gm Prednisone (Deltasone -) 40 mg PO DAILY [facility] Last Admin: 06/30/17 10:06 Dose: 40 mg Rosuvastatin Calcium (Crestor -) 20 mg PO HS [facility] Last Admin: 06/29/17 21:26 Dose: 20 mg Sitagliptin Phosphate (Januvia -) 50 mg PO DAILY@0700 [facility] Last Admin: 06/30/17 07:58 Dose: 50 mg Valsartan (Diovan -) 320 mg PO DAILY [facility] Last Admin: 06/30/17 10:06 Dose: 320 mg - Objective Vital Signs: Vital Signs Temperature 98.2 F 06/30/17 10:00 Pulse Rate 80 06/30/17 10:06 Respiratory Rate 22 06/30/17 10:00 Blood Pressure 144/85 06/30/17 10:00 O2 Sat by Pulse Oximetry (%) 91 L 06/30/17 09:00 Constitutional: Yes: Well Nourished, Calm Eyes: Yes: WNL HENT: Yes: WNL Neck: Yes: WNL Cardiovascular: Yes: Regular Rate and Rhythm, S1, S2 Respiratory: Yes: Rales (FEW [place] CRACKLES) Gastrointestinal: Yes: Normal Bowel Sounds, Soft Extremities: Yes: WNL Edema: No Labs: CBC, BMP 06/29/17 06:00 06/29/17 06:00 INR, PTT INR 1.19 (0.82-1.09) H 06/22/17 10:13 - ....Imaging Chest X-ray: Report Reviewed, Image Reviewed (INCREASED CONGESTION BILATERALLY) Assessment/Plan A/P Pneumonia Acute COPD Exacerbation Chronic Hypoxic Respiratory Failure LV Diastolic Dysfunction Atrial Fibrillation Mitral Regurgitation CAD HTN DM Hyperlipidemia - bowel regimen - continue antibiotics - prednisone - lasix - glucose control while on systemic steroids - inhaled bronchodilators - O2 to keep SpO2 >90% - rate control - anticoagulation Problem List - Problems (1) COPD exacerbation Code(s): J44.1 - CHRONIC OBSTRUCTIVE PULMONARY DISEASE W (ACUTE) EXACERBATION (2) Pneumonia Code(s): J18.9 - PNEUMONIA, UNSPECIFIED ORGANISM (3) CAD S/P percutaneous coronary angioplasty Code(s): I25.10 - ATHSCL HEART DISEASE OF [place] CORONARY ARTERY W/O ANG PCTRS; Z98.61 - CORONARY ANGIOPLASTY STATUS (4) Dyslipidemia Code(s): E78.5 - HYPERLIPIDEMIA, UNSPECIFIED (5) HTN (hypertension) Code(s): I10 - ESSENTIAL (PRIMARY) HYPERTENSION Qualifiers: Hypertension type: essential hypertension Qualified Code(s): I10 - Essential (primary) hypertension (6) Mitral valve regurgitation Code(s): I34.0 - NONRHEUMATIC MITRAL (VALVE) INSUFFICIENCY Qualifiers: Cardiac valve disease etiology: etiology unspecified Qualified Code(s): I34.0 - Nonrheumatic mitral (valve) insufficiency
[2017-06-30] MEDS: ALBUTEROL SO4 0.042% IH SOL 1.25 MG/3 ML VIAL.NEB NEB PRN (15:42)
[2017-06-30] MEDS: TIOTROPIUM BROMIDE 18 MCG CAPSULES IH SCH (18:13)
[2017-06-30] MEDS: ARFORMOTEROL TARTRATE 15 MCG/2 ML VIAL NEB SCH (20:23)
[2017-06-30] MEDS: ROSUVASTATIN CA 20 MG TABLET (FP) PO SCH (21:58)
[2017-06-30] MEDS: DOCUSATE SODIUM 100 MG CAPSULE (FP) PO SCH (21:58)
[2017-07-01] MEDS: INSULIN SLIDING SCALE (NOVOLOG) 1 VIAL SQ SCH ×4 (06:43→21:34)
[2017-07-01] MEDS: FUROSEMIDE 40 MG/4 ML INJECTABLE VIAL IVPUSH SCH ×2 (06:58→13:13)
[2017-07-01] MEDS: glyBURIDE 5 MG TABLET (UD) PO SCH ×2 (07:33→18:14)
[2017-07-01] MEDS: sitaGLIPtin PHOSPHATE 50 MG TABLET PO SCH (07:33)
[2017-07-01] MEDS: INSULIN (LEVEMIR) 100 UNITS/ML UNITS SQ SCH (07:34)
[2017-07-01] MEDS: ARFORMOTEROL TARTRATE 15 MCG/2 ML VIAL NEB SCH ×2 (07:58→20:55)
[2017-07-01] MEDS: VALSARTAN 160 MG TABLET (UD) PO SCH (10:08)
[2017-07-01] MEDS: PANTOPRAZOLE 20 MG TABLET (FP) PO SCH (10:08)
[2017-07-01] MEDS: predniSONE 20 MG TABLET (UD) PO SCH (10:08)
[2017-07-01] MEDS: DIGOXIN 0.125 MG TABLET (FP) PO SCH (10:08)
[2017-07-01] MEDS: ASPIRIN 81 MG CHEWABLE TABLETS PO SCH (10:08)
[2017-07-01] MEDS: DABIGATRAN ETEXILATE MESYLATE 150 MG CAPSULE PO SCH ×2 (10:09→21:34)
[2017-07-01] MEDS: TIOTROPIUM BROMIDE 18 MCG CAPSULES IH SCH (10:09)
[2017-07-01] MEDS: POLYETHYLENE GLYCOL 3350 119 GM BTL PO SCH (10:11)
--- NOTE | 2017-07-01 11:02 | PN ---
Progress Note, Physician Chief Complaint: Pneumonia COPD exacerbation CHF History of Present Illness: NAD, in bed, feels better today No wheezing, minimal coughing tapering steroids ID consult Pulmonary on board had hypoxic event yesterday, Nasal O2 increased to 4lpm to keep Spo2>90% CXR yesterday showed worsening pulmonary congestion and infiltrates - Current Medication List Current Medications: Active Medications Albuterol Sulfate (Ventolin 0.042trength) -) 1 amp NEB Q4H PRN PRN Reason: SHORT OF BREATH/WHEEZING Last Admin: 06/30/17 15:42 Dose: 1 amp Arformoterol Tartrate (Brovana (Restricted To Pulmonology/Resp) -) 1 amp NEB RBID [facility] Last Admin: 07/01/17 07:58 Dose: 1 amp Aspirin (Asa -) 81 mg PO DAILY [facility] Last Admin: 07/01/17 10:08 Dose: 81 mg Dabigatran (Pradaxa -) 150 mg PO BID [facility] Last Admin: 07/01/17 10:09 Dose: 150 mg Digoxin (Lanoxin -) 0.125 mg PO DAILY [facility] Last Admin: 07/01/17 10:08 Dose: 0.125 mg Diltiazem HCl (Cardizem Cd -) 240 mg PO DAILY [facility] Last Admin: 07/01/17 10:08 Dose: 240 mg Docusate Sodium (Colace -) 300 mg PO HS [facility] Last Admin: 06/30/17 21:58 Dose: 300 mg Ergocalciferol (Drisdol -) 50,000 unit PO Tu@1000 [facility] Last Admin: 06/29/17 10:40 Dose: 50,000 unit Furosemide (Lasix Injection -) 40 mg IVPUSH BID@0600,1400 [facility] Last Admin: 07/01/17 06:58 Dose: 40 mg Glyburide (Diabeta -) 5 mg PO BIDAC [facility] Last Admin: 07/01/17 07:33 Dose: Not Given Insulin Aspart (Novolog Vial Sliding Scale -) 1 vial SQ ACHS [facility] PRN Reason: Protocol Last Admin: 07/01/17 06:43 Dose: Not Given Insulin Detemir (Levemir Vial) 35 units SQ AM [facility] Last Admin: 07/01/17 07:34 Dose: Not Given Insulin Detemir (Levemir Vial) 25 units SQ HS [facility] Last Admin: 06/30/17 21:53 Dose: 25 unit Magnesium Hydroxide (Milk Of Magnesia -) 30 ml PO Q8H PRN PRN Reason: INDIGESTION Last Admin: 06/29/17 11:45 Dose: 30 ml Pantoprazole Sodium (Protonix -) 20 mg PO DAILY [facility] Last Admin: 07/01/17 10:08 Dose: 20 mg Polyethylene Glycol (Miralax (For Daily Use) -) 17 gm PO DAILY [facility] Last Admin: 07/01/17 10:11 Dose: Not Given Prednisone (Deltasone -) 40 mg PO DAILY [facility] Last Admin: 07/01/17 10:08 Dose: 40 mg Rosuvastatin Calcium (Crestor -) 20 mg PO HS [facility] Last Admin: 06/30/17 21:58 Dose: 20 mg Sitagliptin Phosphate (Januvia -) 50 mg PO DAILY@0700 [facility] Last Admin: 07/01/17 07:33 Dose: Not Given Tiotropium [place] (Spiriva -) 1 puff IH DAILY [facility] Last Admin: 07/01/17 10:09 Dose: 1 puff Valsartan (Diovan -) 320 mg PO DAILY [facility] Last Admin: 07/01/17 10:08 Dose: 320 mg - Objective Vital Signs: Vital Signs Temperature 97.3 F L 07/01/17 10:00 Pulse Rate 87 07/01/17 10:08 Respiratory Rate 20 07/01/17 10:00 Blood Pressure 146/69 07/01/17 10:00 O2 Sat by Pulse Oximetry (%) 93 L 06/30/17 20:25 Constitutional: Yes: Well Nourished, No Distress, Calm Cardiovascular: Yes: Pulse Irregular Respiratory: Yes: Diminished (BLL), On Nasal O2 Gastrointestinal: Yes: Normal Bowel Sounds, Soft Musculoskeletal: Yes: Muscle Weakness Extremities: Yes: WNL Edema: No Peripheral Pulses WNL: Yes Neurological: Yes: Alert, Oriented Psychiatric: Yes: Alert, Oriented Labs: CBC, BMP 06/29/17 06:00 06/29/17 06:00 INR, PTT INR 1.19 (0.82-1.09) H 06/22/17 10:13 Problem List - Problems (1) Atrial fibrillation Assessment/Plan: -on technician terminal and repeater AC -pradaxa -controlled Code(s): I48.91 - UNSPECIFIED ATRIAL FIBRILLATION Qualifiers: Atrial fibrillation type: chronic Qualified Code(s): I48.2 - Chronic atrial fibrillation (2) COPD exacerbation Assessment/Plan: -bronchodilators -tapering IV steroids -nasal O2 PRN, keep Spo2 >90% -Pulmonary consult -CXR now, if improved or no changes, discharge to SNF Code(s): J44.1 - CHRONIC OBSTRUCTIVE PULMONARY DISEASE W (ACUTE) EXACERBATION (3) Pneumonia Assessment/Plan: LLL CAP -ID consult to re-evaluate the need for abx -finished IV abx -PO tapering steroids Code(s): J18.9 - PNEUMONIA, UNSPECIFIED ORGANISM (4) Diabetes mellitus, insulin dependent (IDDM), uncontrolled Assessment/Plan: -Tapering steroids -A1c 7.9 -on Januvia and glyburide -Endocrine consult -insulin sliding scale -diabetic diet Code(s): E10.65 - TYPE 1 DIABETES MELLITUS WITH HYPERGLYCEMIA Qualifiers: Diabetes mellitus complication status: with unspecified complications Qualified Code(s): E10.8 - Type 1 diabetes mellitus with unspecified complications (5) CHF (congestive heart failure) Assessment/Plan: -seen by cardiology -on Furosemide IVP BID Code(s): I50.9 - HEART FAILURE, UNSPECIFIED Assessment/Plan see problem list Physical therapy
--- NOTE | 2017-07-01 12:11 | PN ---
Progress Note (short form) - Note Progress Note: PULMONARY Started on lasix for worsening congestion. Breathing worse today. Last Vital Signs Temp Pulse Resp BP Pulse Ox 97.3 F L 87 20 146/69 93 L 07/01/17 10:00 07/01/17 10:08 07/01/17 10:00 07/01/17 10:00 06/30/17 20:25 Intake & Output 06/28/17 06/29/17 06/30/17 07/01/17 23:59 23:59 23:59 23:59 Intake Total 490 50 120 Output Total 200 600 Balance 490 -150 -480 Weight 67.495 kg 67.132 kg 66.678 kg 65.799 kg Gen: tachypneic with speaking Heart: RRR Lung: decreased breath sounds at the bases, scattered rhonchi Abd: soft, nontender Ext: + edema CBC, BMP 06/29/17 06:00 06/29/17 06:00 Active Medications Albuterol Sulfate (Ventolin 0.042trength) -) 1 amp NEB Q4H PRN PRN Reason: SHORT OF BREATH/WHEEZING Last Admin: 06/30/17 15:42 Dose: 1 amp Arformoterol Tartrate (Brovana (Restricted To Pulmonology/Resp) -) 1 amp NEB RBID [facility] Last Admin: 07/01/17 07:58 Dose: 1 amp Aspirin (Asa -) 81 mg PO DAILY [facility] Last Admin: 07/01/17 10:08 Dose: 81 mg Dabigatran (Pradaxa -) 150 mg PO BID [facility] Last Admin: 07/01/17 10:09 Dose: 150 mg Digoxin (Lanoxin -) 0.125 mg PO DAILY [facility] Last Admin: 07/01/17 10:08 Dose: 0.125 mg Diltiazem HCl (Cardizem Cd -) 240 mg PO DAILY [facility] Last Admin: 07/01/17 10:08 Dose: 240 mg Docusate Sodium (Colace -) 300 mg PO HS [facility] Last Admin: 06/30/17 21:58 Dose: 300 mg Ergocalciferol (Drisdol -) 50,000 unit PO Tu@1000 [facility] Last Admin: 06/29/17 10:40 Dose: 50,000 unit Furosemide (Lasix Injection -) 40 mg IVPUSH BID@0600,1400 [facility] Last Admin: 07/01/17 06:58 Dose: 40 mg Glyburide (Diabeta -) 5 mg PO BIDAC [facility] Last Admin: 07/01/17 07:33 Dose: Not Given Insulin Aspart (Novolog Vial Sliding Scale -) 1 vial SQ ACHS [facility] PRN Reason: Protocol Last Admin: 07/01/17 11:58 Dose: Not Given Insulin Detemir (Levemir Vial) 35 units SQ AM [facility] Last Admin: 07/01/17 07:34 Dose: Not Given Insulin Detemir (Levemir Vial) 25 units SQ HS [facility] Last Admin: 06/30/17 21:53 Dose: 25 unit Magnesium Hydroxide (Milk Of Magnesia -) 30 ml PO Q8H PRN PRN Reason: INDIGESTION Last Admin: 06/29/17 11:45 Dose: 30 ml Pantoprazole Sodium (Protonix -) 20 mg PO DAILY [facility] Last Admin: 07/01/17 10:08 Dose: 20 mg Polyethylene Glycol (Miralax (For Daily Use) -) 17 gm PO DAILY [facility] Last Admin: 07/01/17 10:11 Dose: Not Given Prednisone (Deltasone -) 40 mg PO DAILY [facility] Last Admin: 07/01/17 10:08 Dose: 40 mg Rosuvastatin Calcium (Crestor -) 20 mg PO HS [facility] Last Admin: 06/30/17 21:58 Dose: 20 mg Sitagliptin Phosphate (Januvia -) 50 mg PO DAILY@0700 [facility] Last Admin: 07/01/17 07:33 Dose: Not Given Tiotropium [place] (Spiriva -) 1 puff IH DAILY [facility] Last Admin: 07/01/17 10:09 Dose: 1 puff Valsartan (Diovan -) 320 mg PO DAILY [facility] Last Admin: 07/01/17 10:08 Dose: 320 mg A/P Pneumonia Acute COPD Exacerbation Chronic Hypoxic Respiratory Failure LV Diastolic Dysfunction Atrial Fibrillation Mitral Regurgitation CAD HTN DM Hyperlipidemia - continue IV lasix - monitor urine output, creatinine - daily weights - continue antibiotics - prednisone taper - glucose control while on systemic steroids - inhaled bronchodilators - O2 to keep SpO2 >90% - rate control - continue anticoagulation Problem List - Problems (1) COPD exacerbation Code(s): J44.1 - CHRONIC OBSTRUCTIVE PULMONARY DISEASE W (ACUTE) EXACERBATION (2) Pneumonia Code(s): J18.9 - PNEUMONIA, UNSPECIFIED ORGANISM (3) CAD S/P percutaneous coronary angioplasty Code(s): I25.10 - ATHSCL HEART DISEASE OF [place] CORONARY ARTERY W/O ANG PCTRS; Z98.61 - CORONARY ANGIOPLASTY STATUS (4) Dyslipidemia Code(s): E78.5 - HYPERLIPIDEMIA, UNSPECIFIED (5) HTN (hypertension) Code(s): I10 - ESSENTIAL (PRIMARY) HYPERTENSION Qualifiers: Hypertension type: essential hypertension Qualified Code(s): I10 - Essential (primary) hypertension (6) Mitral valve regurgitation Code(s): I34.0 - NONRHEUMATIC MITRAL (VALVE) INSUFFICIENCY Qualifiers: Cardiac valve disease etiology: etiology unspecified Qualified Code(s): I34.0 - Nonrheumatic mitral (valve) insufficiency
--- NOTE | 2017-07-01 13:44 | PN ---
Progress Note, Physician History of Present Illness: Breathing more labored today C/O dyspnea, dry cough, and L sided pleuritic chest pain No c/o fever/ chills Afebrile WBC WNL CXR increased congestion bilaterally - Current Medication List Current Medications: Active Medications Albuterol Sulfate (Ventolin 0.042trength) -) 1 amp NEB Q4H PRN PRN Reason: SHORT OF BREATH/WHEEZING Last Admin: 06/30/17 15:42 Dose: 1 amp Arformoterol Tartrate (Brovana (Restricted To Pulmonology/Resp) -) 1 amp NEB RBID [facility] Last Admin: 07/01/17 07:58 Dose: 1 amp Aspirin (Asa -) 81 mg PO DAILY [facility] Last Admin: 07/01/17 10:08 Dose: 81 mg Dabigatran (Pradaxa -) 150 mg PO BID [facility] Last Admin: 07/01/17 10:09 Dose: 150 mg Digoxin (Lanoxin -) 0.125 mg PO DAILY [facility] Last Admin: 07/01/17 10:08 Dose: 0.125 mg Diltiazem HCl (Cardizem Cd -) 240 mg PO DAILY [facility] Last Admin: 07/01/17 10:08 Dose: 240 mg Docusate Sodium (Colace -) 300 mg PO HS [facility] Last Admin: 06/30/17 21:58 Dose: 300 mg Ergocalciferol (Drisdol -) 50,000 unit PO Tu@1000 [facility] Last Admin: 06/29/17 10:40 Dose: 50,000 unit Furosemide (Lasix Injection -) 40 mg IVPUSH BID@0600,1400 [facility] Last Admin: 07/01/17 13:13 Dose: 40 mg Glyburide (Diabeta -) 5 mg PO BIDAC [facility] Last Admin: 07/01/17 07:33 Dose: Not Given Insulin Aspart (Novolog Vial Sliding Scale -) 1 vial SQ ACHS [facility] PRN Reason: Protocol Last Admin: 07/01/17 11:58 Dose: Not Given Insulin Detemir (Levemir Vial) 35 units SQ AM [facility] Last Admin: 07/01/17 07:34 Dose: Not Given Insulin Detemir (Levemir Vial) 25 units SQ HS [facility] Last Admin: 06/30/17 21:53 Dose: 25 unit Magnesium Hydroxide (Milk Of Magnesia -) 30 ml PO Q8H PRN PRN Reason: INDIGESTION Last Admin: 06/29/17 11:45 Dose: 30 ml Pantoprazole Sodium (Protonix -) 20 mg PO DAILY [facility] Last Admin: 07/01/17 10:08 Dose: 20 mg Polyethylene Glycol (Miralax (For Daily Use) -) 17 gm PO DAILY [facility] Last Admin: 07/01/17 10:11 Dose: Not Given Prednisone (Deltasone -) 40 mg PO DAILY [facility] Last Admin: 07/01/17 10:08 Dose: 40 mg Rosuvastatin Calcium (Crestor -) 20 mg PO HS [facility] Last Admin: 06/30/17 21:58 Dose: 20 mg Sitagliptin Phosphate (Januvia -) 50 mg PO DAILY@0700 [facility] Last Admin: 07/01/17 07:33 Dose: Not Given Tiotropium [place] (Spiriva -) 1 puff IH DAILY [facility] Last Admin: 07/01/17 10:09 Dose: 1 puff Valsartan (Diovan -) 320 mg PO DAILY [facility] Last Admin: 07/01/17 10:08 Dose: 320 mg - Objective Vital Signs: Vital Signs Temperature 97.3 F L 07/01/17 10:00 Pulse Rate 87 07/01/17 10:08 Respiratory Rate 20 07/01/17 10:00 Blood Pressure 146/69 07/01/17 10:00 O2 Sat by Pulse Oximetry (%) 93 L 06/30/17 20:25 Constitutional: Yes: No Distress Eyes: Yes: Conjunctiva Clear Cardiovascular: Yes: Regular Rate and Rhythm, S1, S2 Respiratory: Yes: Other (+ bilateral crepitations mid to lower lung zamora) Gastrointestinal: Yes: Normal Bowel Sounds, Soft. No: Tenderness Edema: Yes Labs: CBC, BMP 06/29/17 06:00 06/29/17 06:00 INR, PTT INR 1.19 (0.82-1.09) H 06/22/17 10:13 Assessment/Plan ? HCAP Worsening respiratory status COPD CHF Repeat c/s Resume antibiotic coverage Continue bronchodilators, lasix
[2017-07-01] MEDS ORDERED: PIPERACILLIN/TAZOBACTAM 3.375 GM VIAL IVPB ONE (14:28)
[2017-07-01] MEDS ORDERED: DEXTROSE 5%-WATER - 50 ML IVPB ONE (14:28)
[2017-07-01] MEDS: PIPERACILLIN/TAZOB 3.375 GM 3.375 GM in DEXTROSE 5%-WATER - 50 ML IVPB SCH ×2 (14:59→18:14)
[2017-07-01] MEDS ORDERED: INSULIN (NOVOLOG) ASPART 100 UNITS/ML 10ML VIAL ONE (20:07)
[2017-07-01] MEDS: DOCUSATE SODIUM 100 MG CAPSULE (FP) PO SCH (21:33)
[2017-07-01] MEDS: ROSUVASTATIN CA 20 MG TABLET (FP) PO SCH (21:34)
[2017-07-02] MEDS ORDERED: PIPERACILLIN/TAZOBACTAM 3.375 GM VIAL IVPB ONE ×3 (01:07→17:46)
[2017-07-02] MEDS ORDERED: DEXTROSE 5%-WATER - 50 ML IVPB ONE ×3 (01:08→17:46)
[2017-07-02] MEDS: PIPERACILLIN/TAZOB 3.375 GM 3.375 GM in DEXTROSE 5%-WATER - 50 ML IVPB SCH ×3 (01:19→17:56)
[2017-07-02] MEDS: FUROSEMIDE 40 MG/4 ML INJECTABLE VIAL IVPUSH SCH ×2 (06:05→14:09)
[2017-07-02] MEDS: INSULIN SLIDING SCALE (NOVOLOG) 1 VIAL SQ SCH ×5 (06:10→21:40)
[2017-07-02] MEDS: sitaGLIPtin PHOSPHATE 50 MG TABLET PO SCH (07:30)
[2017-07-02] MEDS: INSULIN (LEVEMIR) 100 UNITS/ML UNITS SQ SCH ×2 (07:30→10:37)
[2017-07-02 07:50] LABS: HEMATOCRIT 34.7 % (32.4-45.2); HEMOGLOBIN 11.3 GM/dL (10.7-15.3); MCH 28.4 pg (25.7-33.7); MCHC 32.7 g/dl (32.0-36.0); MEAN PLT VOLUME 9.7 fl (7.5-11.1); PLATELET COUNT 240 K/MM3 (134-434); RBC 3.99 M/mm3 (3.60-5.2); RDW 21.3 % (11.6-15.6); WHITE BLOOD COUNT 10.6 K/mm3 (4.0-10.0)
[2017-07-02 08:50] LABS: ALBUMIN 2.9 g/dl (3.4-5.0); ANION GAP 9 (8-16); BLOOD UREA NITROGEN 48 mg/dL (7-18); CALCIUM 8.5 mg/dL (8.5-10.1); CHLORIDE 94 mmol/L (98-107); CO2 39 mmol/L (21-32); GLUCOSE,RANDOM 113 mg/dL (74-106); SODIUM 142 mmol/L (136-145)
[2017-07-02 08:53] LABS: ANISOCYTOSIS 2+; MACROCYTOSIS 1+; PLATELET ESTIMATE NORMAL; TEAR DROP CELLS 1+
[2017-07-02 08:56] LABS: ALK PHOS 59 U/L (45-117); CREATININE 1.2 mg/dL (0.55-1.02); SGOT/AST 35 U/L (15-37); SGPT/ALT 33 U/L (12-78)
[2017-07-02] MEDS: ARFORMOTEROL TARTRATE 15 MCG/2 ML VIAL NEB SCH ×2 (09:55→20:31)
[2017-07-02] MEDS: PANTOPRAZOLE 20 MG TABLET (FP) PO SCH (10:04)
[2017-07-02] MEDS: ASPIRIN 81 MG CHEWABLE TABLETS PO SCH (10:04)
[2017-07-02] MEDS: predniSONE 20 MG TABLET (UD) PO SCH (10:04)
[2017-07-02] MEDS: TIOTROPIUM BROMIDE 18 MCG CAPSULES IH SCH (10:04)
[2017-07-02] MEDS: VALSARTAN 160 MG TABLET (UD) PO SCH (10:04)
[2017-07-02] MEDS: DIGOXIN 0.125 MG TABLET (FP) PO SCH (10:05)
[2017-07-02] MEDS: DABIGATRAN ETEXILATE MESYLATE 150 MG CAPSULE PO SCH ×2 (10:05→21:47)
[2017-07-02] MEDS: POLYETHYLENE GLYCOL 3350 119 GM BTL PO SCH (10:05)
--- NOTE | 2017-07-02 10:38 | PN ---
Progress Note, Physician Chief Complaint: patient complaining of left sided chest heaviness earlier in morning got protonix now says that the pain is much improved cardiac profile ordered EKG done iv abx restarted repeat cxr today History of Present Illness: tachypneic while speaking - Current Medication List Current Medications: Active Medications Albuterol Sulfate (Ventolin 0.042trength) -) 1 amp NEB Q4H PRN PRN Reason: SHORT OF BREATH/WHEEZING Last Admin: 06/30/17 15:42 Dose: 1 amp Arformoterol Tartrate (Brovana (Restricted To Pulmonology/Resp) -) 1 amp NEB RBID [facility] Last Admin: 07/01/17 20:55 Dose: 1 amp Aspirin (Asa -) 81 mg PO DAILY [facility] Last Admin: 07/02/17 10:04 Dose: 81 mg Dabigatran (Pradaxa -) 150 mg PO BID [facility] Last Admin: 07/02/17 10:05 Dose: 150 mg Digoxin (Lanoxin -) 0.125 mg PO DAILY [facility] Last Admin: 07/02/17 10:05 Dose: 0.125 mg Diltiazem HCl (Cardizem Cd -) 240 mg PO DAILY [facility] Last Admin: 07/02/17 10:04 Dose: 240 mg Docusate Sodium (Colace -) 300 mg PO HS [facility] Last Admin: 07/01/17 21:33 Dose: 300 mg Ergocalciferol (Drisdol -) 50,000 unit PO Tu@1000 [facility] Last Admin: 06/29/17 10:40 Dose: 50,000 unit Furosemide (Lasix Injection -) 40 mg IVPUSH BID@0600,1400 [facility] Last Admin: 07/02/17 06:05 Dose: 40 mg Piperacillin Sod/Tazobactam (Sod 3.375 gm/ Dextrose) 50 mls @ 100 mls/hr IVPB Q8H-IV FRAN PRN Reason: Protocol Last Admin: 07/02/17 10:05 Dose: 100 mls/hr Insulin Aspart (Novolog Vial Sliding Scale -) 1 vial SQ ACHS FRAN PRN Reason: Protocol Last Admin: 07/02/17 06:10 Dose: Not Given Insulin Detemir (Levemir Vial) 10 units SQ AM [facility] Last Admin: 07/02/17 07:30 Dose: Not Given Magnesium Hydroxide (Milk Of Magnesia -) 30 ml PO Q8H PRN PRN Reason: INDIGESTION Last Admin: 06/29/17 11:45 Dose: 30 ml Pantoprazole Sodium (Protonix -) 20 mg PO DAILY [facility] Last Admin: 07/02/17 10:04 Dose: 20 mg Polyethylene Glycol (Miralax (For Daily Use) -) 17 gm PO DAILY [facility] Last Admin: 07/02/17 10:05 Dose: Not Given Prednisone (Deltasone -) 40 mg PO DAILY [facility] Last Admin: 07/02/17 10:04 Dose: 40 mg Rosuvastatin Calcium (Crestor -) 20 mg PO HS [facility] Last Admin: 07/01/17 21:34 Dose: 20 mg Sitagliptin Phosphate (Januvia -) 50 mg PO DAILY@0700 [facility] Last Admin: 07/02/17 07:30 Dose: Not Given Tiotropium [place] (Spiriva -) 1 puff IH DAILY [facility] Last Admin: 07/02/17 10:04 Dose: 1 puff Valsartan (Diovan -) 320 mg PO DAILY [facility] Last Admin: 07/02/17 10:04 Dose: 320 mg - Objective Vital Signs: Vital Signs Temperature 98 F 07/02/17 05:31 Pulse Rate 84 07/02/17 10:05 Respiratory Rate 20 07/02/17 05:31 Blood Pressure 128/72 07/02/17 05:31 O2 Sat by Pulse Oximetry (%) 90 L 07/01/17 20:45 Constitutional: Yes: Calm, Thin Cardiovascular: Yes: Pulse Irregular, S1, S2 Respiratory: Yes: Diminished Gastrointestinal: Yes: Normal Bowel Sounds, Soft Edema: Yes Neurological: Yes: Alert, Oriented Labs: CBC, BMP 07/02/17 06:34 07/02/17 06:34 INR, PTT INR 1.19 (0.82-1.09) H 06/22/17 10:13 Problem List - Problems (1) Atrial fibrillation Assessment/Plan: digoxin, caridzem and pradaxa dig level ok cardiology follow up Code(s): I48.91 - UNSPECIFIED ATRIAL FIBRILLATION Qualifiers: Atrial fibrillation type: chronic Qualified Code(s): I48.2 - Chronic atrial fibrillation (2) COPD (chronic obstructive pulmonary disease) with acute bronchitis Assessment/Plan: po prednisone on oxygen Code(s): J44.0 - CHRONIC OBSTRUCTIVE PULMON DISEASE W ACUTE LOWER RESP INFCT (3) Pneumonia Assessment/Plan: LLL-CAP repeat cxr restarted iv zosyn Code(s): J18.9 - PNEUMONIA, UNSPECIFIED ORGANISM (4) CAD S/P percutaneous coronary angioplasty Assessment/Plan: aspirin and statin ekg done cardiology fu cardiac enzymes pending chest pressure relieved with protonix Code(s): I25.10 - ATHSCL HEART DISEASE OF [place] CORONARY ARTERY W/O ANG PCTRS; Z98.61 - CORONARY ANGIOPLASTY STATUS (5) CHF (congestive heart failure) Assessment/Plan: iv lasix bid for ankle edema repeat labs in am Code(s): I50.9 - HEART FAILURE, UNSPECIFIED (6) Diabetes Assessment/Plan: hgba1c 7.9 bgm noted medrol taper continue current insulin dose bgm will improve with medrol taper Code(s): E11.9 - TYPE 2 DIABETES MELLITUS WITHOUT COMPLICATIONS Qualifiers: Diabetes mellitus type: other specified (including YULISA) Diabetes mellitus superintendent terminal insulin use: with superintendent terminal use Diabetes mellitus complication status: with unspecified complications Qualified Code(s): E13.8 - Other specified diabetes mellitus with unspecified complications
--- NOTE | 2017-07-02 15:27 | PN ---
Progress Note, Physician Chief Complaint: Pt had tightness after eating food this AM which resolved shortly after taking PPI. No radiation or diaphoresis. Vital were normal At the time and ECG is unchanged. TP done at that time showed minimal abnormality. - Current Medication List Current Medications: Active Medications Albuterol Sulfate (Ventolin 0.042trength) -) 1 amp NEB Q4H PRN PRN Reason: SHORT OF BREATH/WHEEZING Last Admin: 06/30/17 15:42 Dose: 1 amp Arformoterol Tartrate (Brovana (Restricted To Pulmonology/Resp) -) 1 amp NEB RBID [facility] Last Admin: 07/02/17 09:55 Dose: 1 amp Aspirin (Asa -) 81 mg PO DAILY [facility] Last Admin: 07/02/17 10:04 Dose: 81 mg Dabigatran (Pradaxa -) 150 mg PO BID [facility] Last Admin: 07/02/17 10:05 Dose: 150 mg Digoxin (Lanoxin -) 0.125 mg PO DAILY [facility] Last Admin: 07/02/17 10:05 Dose: 0.125 mg Diltiazem HCl (Cardizem Cd -) 240 mg PO DAILY [facility] Last Admin: 07/02/17 10:04 Dose: 240 mg Docusate Sodium (Colace -) 300 mg PO HS [facility] Last Admin: 07/01/17 21:33 Dose: 300 mg Ergocalciferol (Drisdol -) 50,000 unit PO Tu@1000 [facility] Last Admin: 06/29/17 10:40 Dose: 50,000 unit Furosemide (Lasix Injection -) 40 mg IVPUSH BID@0600,1400 [facility] Last Admin: 07/02/17 14:09 Dose: 40 mg Piperacillin Sod/Tazobactam (Sod 3.375 gm/ Dextrose) 50 mls @ 100 mls/hr IVPB Q8H-IV FRAN PRN Reason: Protocol Last Admin: 07/02/17 10:05 Dose: 100 mls/hr Insulin Aspart (Novolog Vial Sliding Scale -) 1 vial SQ ACHS FRAN PRN Reason: Protocol Last Admin: 07/02/17 13:27 Dose: 7 unit Insulin Detemir (Levemir Vial) 10 units SQ AM [facility] Last Admin: 07/02/17 10:37 Dose: 10 units Magnesium Hydroxide (Milk Of Magnesia -) 30 ml PO Q8H PRN PRN Reason: INDIGESTION Last Admin: 06/29/17 11:45 Dose: 30 ml Pantoprazole Sodium (Protonix -) 20 mg PO DAILY [facility] Last Admin: 07/02/17 10:04 Dose: 20 mg Polyethylene Glycol (Miralax (For Daily Use) -) 17 gm PO DAILY [facility] Last Admin: 07/02/17 10:05 Dose: Not Given Prednisone (Deltasone -) 40 mg PO DAILY [facility] Last Admin: 07/02/17 10:04 Dose: 40 mg Rosuvastatin Calcium (Crestor -) 20 mg PO HS [facility] Last Admin: 07/01/17 21:34 Dose: 20 mg Sitagliptin Phosphate (Januvia -) 50 mg PO DAILY@0700 [facility] Last Admin: 07/02/17 07:30 Dose: Not Given Tiotropium [place] (Spiriva -) 1 puff IH DAILY [facility] Last Admin: 07/02/17 10:04 Dose: 1 puff Valsartan (Diovan -) 320 mg PO DAILY [facility] Last Admin: 07/02/17 10:04 Dose: 320 mg - Objective Vital Signs: Vital Signs Temperature 97.4 F L 07/02/17 13:33 Pulse Rate 83 07/02/17 13:33 Respiratory Rate 20 07/02/17 13:33 Blood Pressure 115/62 07/02/17 13:33 O2 Sat by Pulse Oximetry (%) 90 L 07/02/17 09:00 Constitutional: Yes: No Distress, Calm, Thin Eyes: Yes: Conjunctiva Clear HENT: Yes: Atraumatic, Normocephalic Neck: Yes: Supple, Trachea Midline Cardiovascular: Yes: Pulse Irregular, S1, S2. No: JVD, Gallop, Murmur, Rub Respiratory: Yes: Regular (distant BS. No wheezing) Gastrointestinal: Yes: Normal Bowel Sounds, Soft Edema: No Labs: CBC, BMP 07/02/17 06:34 07/02/17 06:34 INR, PTT INR 1.19 (0.82-1.09) H 06/22/17 10:13 - ....Imaging MRI: Image Reviewed (Afib nl axis and interval and NS twave abnormality. Poor R wave progression.) Problem List - Problems (1) CAD S/P percutaneous coronary angioplasty Code(s): I25.10 - ATHSCL HEART DISEASE OF [place] CORONARY ARTERY W/O ANG PCTRS; Z98.61 - CORONARY ANGIOPLASTY STATUS Assessment/Plan Cardiac cath in 2017 showed patent stent. Her CP is atpyical and resolved after PPI. ECG without ischemic changes. Minimal Troponin I is not related to the event (takes 6-8 hours for TP to rise following cardiac injury). Likely GERD. Continue medical management.
--- NOTE | 2017-07-02 16:00 | PN ---
Progress Note, Physician History of Present Illness: pulmonary alert,still dyspneic,o2 sat 86% on o2 - Current Medication List Current Medications: Active Medications Albuterol Sulfate (Ventolin 0.042trength) -) 1 amp NEB Q4H PRN PRN Reason: SHORT OF BREATH/WHEEZING Last Admin: 06/30/17 15:42 Dose: 1 amp Arformoterol Tartrate (Brovana (Restricted To Pulmonology/Resp) -) 1 amp NEB RBID [facility] Last Admin: 07/02/17 09:55 Dose: 1 amp Aspirin (Asa -) 81 mg PO DAILY [facility] Last Admin: 07/02/17 10:04 Dose: 81 mg Dabigatran (Pradaxa -) 150 mg PO BID [facility] Last Admin: 07/02/17 10:05 Dose: 150 mg Digoxin (Lanoxin -) 0.125 mg PO DAILY [facility] Last Admin: 07/02/17 10:05 Dose: 0.125 mg Diltiazem HCl (Cardizem Cd -) 240 mg PO DAILY [facility] Last Admin: 07/02/17 10:04 Dose: 240 mg Docusate Sodium (Colace -) 300 mg PO HS [facility] Last Admin: 07/01/17 21:33 Dose: 300 mg Ergocalciferol (Drisdol -) 50,000 unit PO Tu@1000 [facility] Last Admin: 06/29/17 10:40 Dose: 50,000 unit Furosemide (Lasix Injection -) 40 mg IVPUSH BID@0600,1400 [facility] Last Admin: 07/02/17 14:09 Dose: 40 mg Piperacillin Sod/Tazobactam (Sod 3.375 gm/ Dextrose) 50 mls @ 100 mls/hr IVPB Q8H-IV FRAN PRN Reason: Protocol Last Admin: 07/02/17 10:05 Dose: 100 mls/hr Insulin Aspart (Novolog Vial Sliding Scale -) 1 vial SQ ACHS FRAN PRN Reason: Protocol Last Admin: 07/02/17 13:27 Dose: 7 unit Insulin Detemir (Levemir Vial) 10 units SQ AM [facility] Last Admin: 07/02/17 10:37 Dose: 10 units Magnesium Hydroxide (Milk Of Magnesia -) 30 ml PO Q8H PRN PRN Reason: INDIGESTION Last Admin: 06/29/17 11:45 Dose: 30 ml Pantoprazole Sodium (Protonix -) 20 mg PO DAILY [facility] Last Admin: 07/02/17 10:04 Dose: 20 mg Polyethylene Glycol (Miralax (For Daily Use) -) 17 gm PO DAILY [facility] Last Admin: 07/02/17 10:05 Dose: Not Given Prednisone (Deltasone -) 40 mg PO DAILY [facility] Last Admin: 07/02/17 10:04 Dose: 40 mg Rosuvastatin Calcium (Crestor -) 20 mg PO HS [facility] Last Admin: 07/01/17 21:34 Dose: 20 mg Sitagliptin Phosphate (Januvia -) 50 mg PO DAILY@0700 [facility] Last Admin: 07/02/17 07:30 Dose: Not Given Tiotropium [place] (Spiriva -) 1 puff IH DAILY [facility] Last Admin: 07/02/17 10:04 Dose: 1 puff Valsartan (Diovan -) 320 mg PO DAILY [facility] Last Admin: 07/02/17 10:04 Dose: 320 mg - Objective Vital Signs: Vital Signs Temperature 97.4 F L 07/02/17 13:33 Pulse Rate 83 07/02/17 13:33 Respiratory Rate 20 07/02/17 13:33 Blood Pressure 115/62 07/02/17 13:33 O2 Sat by Pulse Oximetry (%) 90 L 07/02/17 09:00 Constitutional: Yes: Well Nourished, Calm, Other (mildly dyspneic) Eyes: Yes: WNL HENT: Yes: WNL Neck: Yes: WNL Cardiovascular: Yes: Pulse Irregular, S1, S2 Respiratory: Yes: Diminished Gastrointestinal: Yes: Normal Bowel Sounds, Soft Extremities: Yes: WNL Edema: No Labs: CBC, BMP 07/02/17 06:34 07/02/17 06:34 INR, PTT INR 1.19 (0.82-1.09) H 06/22/17 10:13 Assessment/Plan A/P Pneumonia Acute COPD Exacerbation Chronic Hypoxic Respiratory Failure LV Diastolic Dysfunction Atrial Fibrillation Mitral Regurgitation CAD HTN DM Hyperlipidemia - bowel regimen - continue antibiotics - prednisone - lasix - glucose control while on systemic steroids - inhaled bronchodilators - O2 to keep SpO2 >90% - rate control - anticoagulation Problem List - Problems (1) COPD exacerbation Code(s): J44.1 - CHRONIC OBSTRUCTIVE PULMONARY DISEASE W (ACUTE) EXACERBATION (2) Pneumonia Code(s): J18.9 - PNEUMONIA, UNSPECIFIED ORGANISM (3) CAD S/P percutaneous coronary angioplasty Code(s): I25.10 - ATHSCL HEART DISEASE OF [place] CORONARY ARTERY W/O ANG PCTRS; Z98.61 - CORONARY ANGIOPLASTY STATUS (4) Dyslipidemia Code(s): E78.5 - HYPERLIPIDEMIA, UNSPECIFIED (5) HTN (hypertension) Code(s): I10 - ESSENTIAL (PRIMARY) HYPERTENSION Qualifiers: Hypertension type: essential hypertension Qualified Code(s): I10 - Essential (primary) hypertension (6) Mitral valve regurgitation Code(s): I34.0 - NONRHEUMATIC MITRAL (VALVE) INSUFFICIENCY Qualifiers: Cardiac valve disease etiology: etiology unspecified Qualified Code(s): I34.0 - Nonrheumatic mitral (valve) insufficiency
--- NOTE | 2017-07-02 20:24 | PN ---
Progress Note, Physician History of Present Illness: Breathing less labored today C/O dyspnea, dry cough No c/o fever/ chills Afebrile WBC WNL CXR today decreased congestion - Current Medication List Current Medications: Active Medications Albuterol Sulfate (Ventolin 0.042trength) -) 1 amp NEB Q4H PRN PRN Reason: SHORT OF BREATH/WHEEZING Last Admin: 06/30/17 15:42 Dose: 1 amp Arformoterol Tartrate (Brovana (Restricted To Pulmonology/Resp) -) 1 amp NEB RBID [facility] Last Admin: 07/02/17 09:55 Dose: 1 amp Aspirin (Asa -) 81 mg PO DAILY [facility] Last Admin: 07/02/17 10:04 Dose: 81 mg Dabigatran (Pradaxa -) 150 mg PO BID [facility] Last Admin: 07/02/17 10:05 Dose: 150 mg Digoxin (Lanoxin -) 0.125 mg PO DAILY [facility] Last Admin: 07/02/17 10:05 Dose: 0.125 mg Diltiazem HCl (Cardizem Cd -) 240 mg PO DAILY [facility] Last Admin: 07/02/17 10:04 Dose: 240 mg Docusate Sodium (Colace -) 300 mg PO HS [facility] Last Admin: 07/01/17 21:33 Dose: 300 mg Ergocalciferol (Drisdol -) 50,000 unit PO Tu@1000 [facility] Last Admin: 06/29/17 10:40 Dose: 50,000 unit Furosemide (Lasix Injection -) 40 mg IVPUSH BID@0600,1400 [facility] Last Admin: 07/02/17 14:09 Dose: 40 mg Piperacillin Sod/Tazobactam (Sod 3.375 gm/ Dextrose) 50 mls @ 100 mls/hr IVPB Q8H-IV FRAN PRN Reason: Protocol Last Admin: 07/02/17 17:56 Dose: 100 mls/hr Insulin Aspart (Novolog Vial Sliding Scale -) 1 vial SQ ACHS FRAN PRN Reason: Protocol Last Admin: 07/02/17 17:18 Dose: 5 unit Insulin Detemir (Levemir Vial) 10 units SQ AM [facility] Last Admin: 07/02/17 10:37 Dose: 10 units Magnesium Hydroxide (Milk Of Magnesia -) 30 ml PO Q8H PRN PRN Reason: INDIGESTION Last Admin: 06/29/17 11:45 Dose: 30 ml Pantoprazole Sodium (Protonix -) 20 mg PO DAILY [facility] Last Admin: 07/02/17 10:04 Dose: 20 mg Polyethylene Glycol (Miralax (For Daily Use) -) 17 gm PO DAILY [facility] Last Admin: 07/02/17 10:05 Dose: Not Given Prednisone (Deltasone -) 40 mg PO DAILY [facility] Last Admin: 07/02/17 10:04 Dose: 40 mg Rosuvastatin Calcium (Crestor -) 20 mg PO HS [facility] Last Admin: 07/01/17 21:34 Dose: 20 mg Sitagliptin Phosphate (Januvia -) 50 mg PO DAILY@0700 [facility] Last Admin: 07/02/17 07:30 Dose: Not Given Tiotropium [place] (Spiriva -) 1 puff IH DAILY [facility] Last Admin: 07/02/17 10:04 Dose: 1 puff Valsartan (Diovan -) 320 mg PO DAILY [facility] Last Admin: 07/02/17 10:04 Dose: 320 mg - Objective Vital Signs: Vital Signs Temperature 97 F L 07/02/17 18:32 Pulse Rate 80 07/02/17 18:32 Respiratory Rate 20 07/02/17 18:32 Blood Pressure 121/64 07/02/17 18:32 O2 Sat by Pulse Oximetry (%) 90 L 07/02/17 09:00 Constitutional: Yes: Mild Distress Cardiovascular: Yes: Regular Rate and Rhythm, S1, S2 Respiratory: Yes: Other (crepitations at bases) Gastrointestinal: Yes: Normal Bowel Sounds, Soft Labs: CBC, BMP 07/02/17 06:34 07/02/17 06:34 INR, PTT INR 1.19 (0.82-1.09) H 06/22/17 10:13 Assessment/Plan ? HCAP COPD CHF Repeat c/s pending Continue empiric zosyn Continue bronchodilators, lasix
[2017-07-02] MEDS ORDERED: INSULIN (NOVOLOG) ASPART 100 UNITS/ML 10ML VIAL ONE (21:36)
[2017-07-02] MEDS: ROSUVASTATIN CA 20 MG TABLET (FP) PO SCH (21:40)
[2017-07-02] MEDS: DOCUSATE SODIUM 100 MG CAPSULE (FP) PO SCH (21:40)
[2017-07-02] MEDS ORDERED: PT OWN MED DRAWER 7, Y5N ONE (21:43)
[2017-07-03] MEDS ORDERED: PIPERACILLIN/TAZOBACTAM 3.375 GM VIAL IVPB ONE ×3 (01:12→17:42)
[2017-07-03] MEDS ORDERED: DEXTROSE 5%-WATER - 50 ML IVPB ONE ×3 (01:12→17:43)
[2017-07-03] MEDS: PIPERACILLIN/TAZOB 3.375 GM 3.375 GM in DEXTROSE 5%-WATER - 50 ML IVPB SCH ×3 (01:24→17:54)
[2017-07-03] MEDS: sitaGLIPtin PHOSPHATE 50 MG TABLET PO SCH (06:25)
[2017-07-03] MEDS: FUROSEMIDE 40 MG/4 ML INJECTABLE VIAL IVPUSH SCH ×2 (06:25→15:00)
[2017-07-03] MEDS: INSULIN (LEVEMIR) 100 UNITS/ML UNITS SQ SCH ×2 (06:29→08:15)
[2017-07-03] MEDS: INSULIN SLIDING SCALE (NOVOLOG) 1 VIAL SQ SCH ×4 (06:29→22:09)
[2017-07-03] MEDS: ARFORMOTEROL TARTRATE 15 MCG/2 ML VIAL NEB SCH ×2 (07:30→21:29)
[2017-07-03 08:04] LABS: CHLORIDE 96 mmol/L (98-107); POTASSIUM 3.7 mmol/L (3.5-5.1); SODIUM 145 mmol/L (136-145)
[2017-07-03 08:15] LABS: ALBUMIN 2.7 g/dl (3.4-5.0); ALK PHOS 54 U/L (45-117); ANION GAP 8 (8-16); BILIRUBIN,TOTAL 1.5 mg/dL (0.2-1.0); BLOOD UREA NITROGEN 53 mg/dL (7-18); CALCIUM 8.6 mg/dL (8.5-10.1); CO2 41 mmol/L (21-32); CREATININE 1.4 mg/dL (0.55-1.02); GLUCOSE,RANDOM 80 mg/dL (74-106); SGOT/AST 28 U/L (15-37); SGPT/ALT 29 U/L (12-78); TOT PROT 5.4 g/dl (6.4-8.2)
[2017-07-03] MEDS ORDERED: PT OWN MED DRAWER 7, Y5N ONE ×2 (09:30→20:20)
[2017-07-03] MEDS: TIOTROPIUM BROMIDE 18 MCG CAPSULES IH SCH (11:41)
[2017-07-03] MEDS: predniSONE 20 MG TABLET (UD) PO SCH (11:43)
[2017-07-03] MEDS: ASPIRIN 81 MG CHEWABLE TABLETS PO SCH (11:43)
[2017-07-03] MEDS: VALSARTAN 160 MG TABLET (UD) PO SCH (11:44)
[2017-07-03] MEDS: DIGOXIN 0.125 MG TABLET (FP) PO SCH (11:45)
[2017-07-03] MEDS: DABIGATRAN ETEXILATE MESYLATE 150 MG CAPSULE PO SCH ×2 (11:45→22:03)
[2017-07-03] MEDS: POLYETHYLENE GLYCOL 3350 119 GM BTL PO SCH (11:45)
[2017-07-03] MEDS: PANTOPRAZOLE 20 MG TABLET (FP) PO SCH (11:47)
--- NOTE | 2017-07-03 12:14 | PN ---
Progress Note, Physician - Current Medication List Current Medications: Active Medications Albuterol Sulfate (Ventolin 0.042trength) -) 1 amp NEB Q4H PRN PRN Reason: SHORT OF BREATH/WHEEZING Last Admin: 06/30/17 15:42 Dose: 1 amp Arformoterol Tartrate (Brovana (Restricted To Pulmonology/Resp) -) 1 amp NEB RBID [facility] Last Admin: 07/03/17 07:30 Dose: 1 amp Aspirin (Asa -) 81 mg PO DAILY [facility] Last Admin: 07/03/17 11:43 Dose: 81 mg Dabigatran (Pradaxa -) 150 mg PO BID [facility] Last Admin: 07/03/17 11:45 Dose: 150 mg Digoxin (Lanoxin -) 0.125 mg PO DAILY [facility] Last Admin: 07/03/17 11:45 Dose: 0.125 mg Diltiazem HCl (Cardizem Cd -) 240 mg PO DAILY [facility] Last Admin: 07/03/17 11:43 Dose: 240 mg Docusate Sodium (Colace -) 300 mg PO HS [facility] Last Admin: 07/02/17 21:40 Dose: 300 mg Ergocalciferol (Drisdol -) 50,000 unit PO Tu@1000 [facility] Last Admin: 06/29/17 10:40 Dose: 50,000 unit Furosemide (Lasix Injection -) 40 mg IVPUSH BID@0600,1400 [facility] Last Admin: 07/03/17 06:25 Dose: 40 mg Piperacillin Sod/Tazobactam (Sod 3.375 gm/ Dextrose) 50 mls @ 100 mls/hr IVPB Q8H-IV FRAN PRN Reason: Protocol Last Admin: 07/03/17 11:00 Dose: 100 mls/hr Insulin Aspart (Novolog Vial Sliding Scale -) 1 vial SQ ACHS [facility] PRN Reason: Protocol Last Admin: 07/03/17 12:09 Dose: 5 unit Insulin Detemir (Levemir Vial) 10 units SQ AM [facility] Last Admin: 07/03/17 08:15 Dose: 10 units Magnesium Hydroxide (Milk Of Magnesia -) 30 ml PO Q8H PRN PRN Reason: INDIGESTION Last Admin: 06/29/17 11:45 Dose: 30 ml Pantoprazole Sodium (Protonix -) 20 mg PO DAILY [facility] Last Admin: 07/03/17 11:47 Dose: 20 mg Polyethylene Glycol (Miralax (For Daily Use) -) 17 gm PO DAILY [facility] Last Admin: 07/03/17 11:45 Dose: Not Given Prednisone (Deltasone -) 40 mg PO DAILY [facility] Last Admin: 07/03/17 11:43 Dose: 40 mg Rosuvastatin Calcium (Crestor -) 20 mg PO HS [facility] Last Admin: 07/02/17 21:40 Dose: 20 mg Sitagliptin Phosphate (Januvia -) 50 mg PO DAILY@0700 [facility] Last Admin: 07/03/17 06:25 Dose: 50 mg Tiotropium [place] (Spiriva -) 1 puff IH DAILY [facility] Last Admin: 07/03/17 11:41 Dose: 1 puff Valsartan (Diovan -) 320 mg PO DAILY [facility] Last Admin: 07/03/17 11:44 Dose: 320 mg - Objective Vital Signs: Vital Signs Temperature 97.4 F L 07/03/17 05:48 Pulse Rate 85 07/03/17 11:45 Respiratory Rate 20 07/03/17 05:48 Blood Pressure 118/61 07/03/17 05:48 O2 Sat by Pulse Oximetry (%) 96 07/03/17 06:26 Cardiovascular: Yes: S1, S2 Respiratory: Yes: On Nasal O2, Rhonchi Gastrointestinal: Yes: Normal Bowel Sounds, Soft Labs: CBC, BMP 07/02/17 06:34 07/03/17 06:00 INR, PTT INR 1.19 (0.82-1.09) H 06/22/17 10:13 Problem List - Problems (1) COPD (chronic obstructive pulmonary disease) with acute bronchitis Code(s): J44.0 - CHRONIC OBSTRUCTIVE PULMON DISEASE W ACUTE LOWER RESP INFCT (2) COPD exacerbation Code(s): J44.1 - CHRONIC OBSTRUCTIVE PULMONARY DISEASE W (ACUTE) EXACERBATION (3) CAD S/P percutaneous coronary angioplasty Code(s): I25.10 - ATHSCL HEART DISEASE OF [place] CORONARY ARTERY W/O ANG PCTRS; Z98.61 - CORONARY ANGIOPLASTY STATUS (4) CHF (congestive heart failure) Code(s): I50.9 - HEART FAILURE, UNSPECIFIED (5) Diabetes Code(s): E11.9 - TYPE 2 DIABETES MELLITUS WITHOUT COMPLICATIONS Qualifiers: Diabetes mellitus type: other specified (including YULISA) Diabetes mellitus long term care administrator insulin use: with residential use Diabetes mellitus complication status: with unspecified complications Qualified Code(s): E13.8 - Other specified diabetes mellitus with unspecified complications (6) Atrial fibrillation Code(s): I48.91 - UNSPECIFIED ATRIAL FIBRILLATION Qualifiers: Atrial fibrillation type: chronic Qualified Code(s): I48.2 - Chronic atrial fibrillation Assessment/Plan - Problems (1) Atrial fibrillation Assessment/Plan: digoxin, caridzem and pradaxa dig level ok cardiology follow up Code(s): I48.91 - UNSPECIFIED ATRIAL FIBRILLATION Qualifiers: Atrial fibrillation type: chronic Qualified Code(s): I48.2 - Chronic atrial fibrillation (2) COPD (chronic obstructive pulmonary disease) with acute bronchitis Assessment/Plan: po prednisone on oxygen Code(s): J44.0 - CHRONIC OBSTRUCTIVE PULMON DISEASE W ACUTE LOWER RESP INFCT (3) Pneumonia Assessment/Plan: LLL-CAP repeat cxr restarted iv zosyn Code(s): J18.9 - PNEUMONIA, UNSPECIFIED ORGANISM (4) CAD S/P percutaneous coronary angioplasty Assessment/Plan: aspirin and statin ekg since had cp after eating banana--now no cp cardiology fu cardiac enzymes pending chest pressure relieved with protonix Code(s): I25.10 - ATHSCL HEART DISEASE OF [place] CORONARY ARTERY W/O ANG PCTRS; Z98.61 - CORONARY ANGIOPLASTY STATUS (5) CHF (congestive heart failure) Assessment/Plan: iv lasix bid for ankle edema repeat labs in am Code(s): I50.9 - HEART FAILURE, UNSPECIFIED (6) Diabetes Assessment/Plan: hgba1c 7.9 bgm noted medrol taper continue current insulin dose bgm will improve with medrol taper Code(s): E11.9 - TYPE 2 DIABETES MELLITUS WITHOUT COMPLICATIONS Qualifiers: Diabetes mellitus type: other specified (including YULISA) Diabetes mellitus residential insulin use: with residential use Diabetes mellitus complication status: with unspecified complications Qualified Code(s): E13.8 - Other specified diabetes mellitus with unspecified complications
--- NOTE | 2017-07-03 13:51 | PN ---
Progress Note, Physician History of Present Illness: PULMONARY ALERT,FEELING BETTER,LESS DYSPNEIC - Current Medication List Current Medications: Active Medications Albuterol Sulfate (Ventolin 0.042trength) -) 1 amp NEB Q4H PRN PRN Reason: SHORT OF BREATH/WHEEZING Last Admin: 06/30/17 15:42 Dose: 1 amp Arformoterol Tartrate (Brovana (Restricted To Pulmonology/Resp) -) 1 amp NEB RBID [facility] Last Admin: 07/03/17 07:30 Dose: 1 amp Aspirin (Asa -) 81 mg PO DAILY [facility] Last Admin: 07/03/17 11:43 Dose: 81 mg Dabigatran (Pradaxa -) 150 mg PO BID [facility] Last Admin: 07/03/17 11:45 Dose: 150 mg Digoxin (Lanoxin -) 0.125 mg PO DAILY [facility] Last Admin: 07/03/17 11:45 Dose: 0.125 mg Diltiazem HCl (Cardizem Cd -) 240 mg PO DAILY [facility] Last Admin: 07/03/17 11:43 Dose: 240 mg Docusate Sodium (Colace -) 300 mg PO HS [facility] Last Admin: 07/02/17 21:40 Dose: 300 mg Ergocalciferol (Drisdol -) 50,000 unit PO Tu@1000 [facility] Last Admin: 06/29/17 10:40 Dose: 50,000 unit Furosemide (Lasix Injection -) 40 mg IVPUSH BID@0600,1400 [facility] Last Admin: 07/03/17 06:25 Dose: 40 mg Piperacillin Sod/Tazobactam (Sod 3.375 gm/ Dextrose) 50 mls @ 100 mls/hr IVPB Q8H-IV FRAN PRN Reason: Protocol Last Admin: 07/03/17 11:00 Dose: 100 mls/hr Insulin Aspart (Novolog Vial Sliding Scale -) 1 vial SQ ACHS FRAN PRN Reason: Protocol Last Admin: 07/03/17 12:09 Dose: 5 unit Insulin Detemir (Levemir Vial) 10 units SQ AM [facility] Last Admin: 07/03/17 08:15 Dose: 10 units Magnesium Hydroxide (Milk Of Magnesia -) 30 ml PO Q8H PRN PRN Reason: INDIGESTION Last Admin: 06/29/17 11:45 Dose: 30 ml Pantoprazole Sodium (Protonix -) 20 mg PO DAILY [facility] Last Admin: 07/03/17 11:47 Dose: 20 mg Polyethylene Glycol (Miralax (For Daily Use) -) 17 gm PO DAILY [facility] Last Admin: 07/03/17 11:45 Dose: Not Given Prednisone (Deltasone -) 40 mg PO DAILY [facility] Last Admin: 07/03/17 11:43 Dose: 40 mg Rosuvastatin Calcium (Crestor -) 20 mg PO HS [facility] Last Admin: 07/02/17 21:40 Dose: 20 mg Sitagliptin Phosphate (Januvia -) 50 mg PO DAILY@0700 [facility] Last Admin: 07/03/17 06:25 Dose: 50 mg Tiotropium [place] (Spiriva -) 1 puff IH DAILY [facility] Last Admin: 07/03/17 11:41 Dose: 1 puff Valsartan (Diovan -) 320 mg PO DAILY [facility] Last Admin: 07/03/17 11:44 Dose: 320 mg - Objective Vital Signs: Vital Signs Temperature 97.4 F L 07/03/17 05:48 Pulse Rate 85 07/03/17 11:45 Respiratory Rate 20 07/03/17 05:48 Blood Pressure 118/61 07/03/17 05:48 O2 Sat by Pulse Oximetry (%) 96 07/03/17 06:26 Constitutional: Yes: Well Nourished, Calm Eyes: Yes: WNL HENT: Yes: WNL Neck: Yes: WNL Cardiovascular: Yes: Pulse Irregular, S1 Respiratory: Yes: Diminished Gastrointestinal: Yes: Normal Bowel Sounds, Soft Extremities: Yes: WNL Edema: No Labs: CBC, BMP 07/02/17 06:34 07/03/17 06:00 INR, PTT INR 1.19 (0.82-1.09) H 06/22/17 10:13 Assessment/Plan A/P Pneumonia Acute COPD Exacerbation improving Chronic Hypoxic Respiratory Failure LV Diastolic Dysfunction Atrial Fibrillation Mitral Regurgitation CAD HTN DM Hyperlipidemia - continue antibiotics - prednisone - lasix - glucose control while on systemic steroids - inhaled bronchodilators - O2 to keep SpO2 >90% - rate control - anticoagulation Problem List - Problems (1) COPD exacerbation Code(s): J44.1 - CHRONIC OBSTRUCTIVE PULMONARY DISEASE W (ACUTE) EXACERBATION (2) Pneumonia Code(s): J18.9 - PNEUMONIA, UNSPECIFIED ORGANISM (3) CAD S/P percutaneous coronary angioplasty Code(s): I25.10 - ATHSCL HEART DISEASE OF [place] CORONARY ARTERY W/O ANG PCTRS; Z98.61 - CORONARY ANGIOPLASTY STATUS (4) Dyslipidemia Code(s): E78.5 - HYPERLIPIDEMIA, UNSPECIFIED (5) HTN (hypertension) Code(s): I10 - ESSENTIAL (PRIMARY) HYPERTENSION Qualifiers: Hypertension type: essential hypertension Qualified Code(s): I10 - Essential (primary) hypertension (6) Mitral valve regurgitation Code(s): I34.0 - NONRHEUMATIC MITRAL (VALVE) INSUFFICIENCY Qualifiers: Cardiac valve disease etiology: etiology unspecified Qualified Code(s): I34.0 - Nonrheumatic mitral (valve) insufficiency
--- NOTE | 2017-07-03 14:31 | EKG ---
Test Reason : Blood Pressure : / mmHG Vent. Rate : 087 BPM Atrial Rate : 096 BPM P-R Int : 000 ms QRS Dur : 104 ms QT Int : 388 ms P-R-T Axes : 000 061 242 degrees QTc Int : 466 ms ATRIAL FIBRILLATION WITH PREMATURE VENTRICULAR OR ABERRANTLY CONDUCTED COMPLEXES POSSIBLE INFERIOR INFARCT (CITED ON OR BEFORE 30-AUG-2016) ANTEROLATERAL INFARCT (CITED ON OR BEFORE 30-AUG-2016) ABNORMAL ECG WHEN COMPARED WITH ECG OF 02-JUL-2017 10:16, PREVIOUS ECG HAS UNDETERMINED RHYTHM, NEEDS REVIEW INVERTED T WAVES HAVE REPLACED NONSPECIFIC T WAVE ABNORMALITY IN INFERIOR LEADS T WAVE INVERSION MORE EVIDENT IN LATERAL LEADS Confirmed by MD Vasiliy, Dada ([id number]) on 07/03/2017 2:31:14 PM Referred By: Bhargav MARQUEZ Confirmed By:Dada Amanda MD
--- NOTE | 2017-07-03 14:38 | EKG ---
Test Reason : Blood Pressure : / mmHG Vent. Rate : 088 BPM Atrial Rate : 079 BPM P-R Int : 000 ms QRS Dur : 098 ms QT Int : 382 ms P-R-T Axes : 088 015 179 degrees QTc Int : 462 ms ATRIAL FIBRILLATION CANNOT RULE OUT INFERIOR INFARCT , AGE UNDETERMINED ANTEROLATERAL INFARCT (CITED ON OR BEFORE 30-AUG-2016) ABNORMAL ECG WHEN COMPARED WITH ECG OF 25-JUN-2017 12:01, CURRENT UNDETERMINED RHYTHM PRECLUDES RHYTHM COMPARISON, NEEDS REVIEW INVERTED T WAVES HAVE REPLACED NONSPECIFIC T WAVE ABNORMALITY IN LATERAL LEADS Confirmed by MD Vasiliy, Dada ([id number]) on 07/03/2017 2:37:48 PM Referred By: Confirmed By:Dada Amanda MD
[2017-07-03] MEDS: ROSUVASTATIN CA 20 MG TABLET (FP) PO SCH (22:02)
[2017-07-03] MEDS: DOCUSATE SODIUM 100 MG CAPSULE (FP) PO SCH (22:02)
--- NOTE | 2017-07-04 00:40 | PN ---
Progress Note, Physician Chief Complaint: dyspnea at rest,sugars still fluctuate appetite improving History of Present Illness: dm, copd,htn ashd,coughing improving appetite sugars still not stable - Current Medication List Current Medications: Active Medications Albuterol Sulfate (Ventolin 0.042trength) -) 1 amp NEB Q4H PRN PRN Reason: SHORT OF BREATH/WHEEZING Last Admin: 06/30/17 15:42 Dose: 1 amp Arformoterol Tartrate (Brovana (Restricted To Pulmonology/Resp) -) 1 amp NEB RBID [facility] Last Admin: 07/03/17 21:29 Dose: 1 amp Aspirin (Asa -) 81 mg PO DAILY [facility] Last Admin: 07/03/17 11:43 Dose: 81 mg Dabigatran (Pradaxa -) 150 mg PO BID [facility] Last Admin: 07/03/17 22:03 Dose: 150 mg Digoxin (Lanoxin -) 0.125 mg PO DAILY [facility] Last Admin: 07/03/17 11:45 Dose: 0.125 mg Diltiazem HCl (Cardizem Cd -) 240 mg PO DAILY [facility] Last Admin: 07/03/17 11:43 Dose: 240 mg Docusate Sodium (Colace -) 300 mg PO HS [facility] Last Admin: 07/03/17 22:02 Dose: 200 mg Ergocalciferol (Drisdol -) 50,000 unit PO Tu@1000 [facility] Last Admin: 06/29/17 10:40 Dose: 50,000 unit Furosemide (Lasix Injection -) 40 mg IVPUSH BID@0600,1400 [facility] Last Admin: 07/03/17 15:00 Dose: 40 mg Piperacillin Sod/Tazobactam (Sod 3.375 gm/ Dextrose) 50 mls @ 100 mls/hr IVPB Q8H-IV FRAN PRN Reason: Protocol Last Admin: 07/03/17 17:54 Dose: 100 mls/hr Insulin Aspart (Novolog Vial Sliding Scale -) 1 vial SQ ACHS [facility] PRN Reason: Protocol Last Admin: 07/03/17 22:09 Dose: 7 unit Insulin Detemir (Levemir Vial) 10 units SQ AM [facility] Last Admin: 07/03/17 08:15 Dose: 10 units Magnesium Hydroxide (Milk Of Magnesia -) 30 ml PO Q8H PRN PRN Reason: INDIGESTION Last Admin: 06/29/17 11:45 Dose: 30 ml Pantoprazole Sodium (Protonix -) 20 mg PO DAILY [facility] Last Admin: 07/03/17 11:47 Dose: 20 mg Polyethylene Glycol (Miralax (For Daily Use) -) 17 gm PO DAILY [facility] Last Admin: 07/03/17 11:45 Dose: Not Given Prednisone (Deltasone -) 40 mg PO DAILY [facility] Last Admin: 07/03/17 11:43 Dose: 40 mg Rosuvastatin Calcium (Crestor -) 20 mg PO HS [facility] Last Admin: 07/03/17 22:02 Dose: 20 mg Sitagliptin Phosphate (Januvia -) 50 mg PO DAILY@0700 [facility] Last Admin: 07/03/17 06:25 Dose: 50 mg Tiotropium [place] (Spiriva -) 1 puff IH DAILY [facility] Last Admin: 07/03/17 11:41 Dose: 1 puff Valsartan (Diovan -) 320 mg PO DAILY [facility] Last Admin: 07/03/17 11:44 Dose: 320 mg - Objective Vital Signs: Vital Signs Temperature 97.4 F L 07/03/17 22:01 Pulse Rate 84 07/03/17 22:01 Respiratory Rate 20 07/03/17 22:01 Blood Pressure 95/51 07/03/17 22:01 O2 Sat by Pulse Oximetry (%) 95 07/03/17 21:00 Constitutional: Yes: Well Nourished Eyes: Yes: EOM Intact HENT: Yes: Normocephalic Neck: Yes: Trachea Midline Cardiovascular: Yes: Regular Rate and Rhythm Respiratory: Yes: SOB, Tachypnea Gastrointestinal: Yes: Normal Bowel Sounds ...Rectal Exam: Yes: Deferred Genitourinary: Yes: WNL Musculoskeletal: Yes: WNL Extremities: Yes: WNL Edema: No Psychiatric: Yes: Alert, Oriented Labs: CBC, BMP 07/02/17 06:34 07/03/17 06:00 INR, PTT INR 1.19 (0.82-1.09) H 06/22/17 10:13 Problem List - Problems (1) Atrial fibrillation Code(s): I48.91 - UNSPECIFIED ATRIAL FIBRILLATION Qualifiers: Atrial fibrillation type: chronic Qualified Code(s): I48.2 - Chronic atrial fibrillation (2) COPD (chronic obstructive pulmonary disease) with acute bronchitis Code(s): J44.0 - CHRONIC OBSTRUCTIVE PULMON DISEASE W ACUTE LOWER RESP INFCT (3) COPD exacerbation Code(s): J44.1 - CHRONIC OBSTRUCTIVE PULMONARY DISEASE W (ACUTE) EXACERBATION (4) CAD S/P percutaneous coronary angioplasty Code(s): I25.10 - ATHSCL HEART DISEASE OF [place] CORONARY ARTERY W/O ANG PCTRS; Z98.61 - CORONARY ANGIOPLASTY STATUS (5) CHF (congestive heart failure) Code(s): I50.9 - HEART FAILURE, UNSPECIFIED (6) COPD (chronic obstructive pulmonary disease) Code(s): J44.9 - CHRONIC OBSTRUCTIVE PULMONARY DISEASE, UNSPECIFIED Qualifiers: COPD type: COPD with acute exacerbation Qualified Code(s): J44.1 - Chronic obstructive pulmonary disease with (acute) exacerbation Assessment/Plan Current Active Problems Atrial fibrillation (Acute) COPD (chronic obstructive pulmonary disease) with acute bronchitis (Acute) COPD exacerbation (Acute) Fever (Acute) Pneumonia (Acute) diabetes mellitus type 2 hyperglycemia insulin resistant Abnormal Lab Results 07/03/17 07/03/17 07/03/17 06:00 06:00 12:30 Chloride 96 L Carbon Dioxide 41 H BUN 53 H Creatinine 1.4 H Total Bilirubin 1.5 H D Troponin I 0.13 H 0.14 H Total Protein 5.4 L Albumin 2.7 L Laboratory Results - last 24 hr 07/03/17 07/03/17 07/03/17 05:55 06:00 06:00 Sodium 145 Potassium 3.7 Chloride 96 L Carbon Dioxide 41 H Anion Gap 8 BUN 53 H Creatinine 1.4 H Creat Clearance w eGFR 35.82 POC Glucometer 96 Random Glucose 80 Calcium 8.6 Total Bilirubin 1.5 H D AST 28 ALT 29 Alkaline Phosphatase 54 Creatine Kinase 31 Troponin I 0.13 H Total Protein 5.4 L Albumin 2.7 L 07/03/17 07/03/17 07/03/17 12:03 12:30 16:25 Sodium Potassium Chloride Carbon Dioxide Anion Gap BUN Creatinine Creat Clearance w eGFR POC Glucometer 201 152 Random Glucose Calcium Total Bilirubin AST ALT Alkaline Phosphatase Creatine Kinase 36 Troponin I 0.14 H Total Protein Albumin 07/03/17 22:08 Sodium Potassium Chloride Carbon Dioxide Anion Gap BUN Creatinine Creat Clearance w eGFR POC Glucometer 302 Random Glucose Calcium Total Bilirubin AST ALT Alkaline Phosphatase Creatine Kinase Troponin I Total Protein Albumin plan: continue levemir 10 units am will avoid oral agents given ckd bgmachs
[2017-07-04] MEDS ORDERED: DEXTROSE 5%-WATER - 50 ML IVPB ONE ×3 (01:48→16:53)
[2017-07-04] MEDS ORDERED: PIPERACILLIN/TAZOBACTAM 3.375 GM VIAL IVPB ONE ×3 (01:48→16:53)
[2017-07-04] MEDS: PIPERACILLIN/TAZOB 3.375 GM 3.375 GM in DEXTROSE 5%-WATER - 50 ML IVPB SCH ×3 (01:52→17:25)
[2017-07-04] MEDS: FUROSEMIDE 40 MG/4 ML INJECTABLE VIAL IVPUSH SCH ×2 (06:32→14:01)
[2017-07-04] MEDS: sitaGLIPtin PHOSPHATE 50 MG TABLET PO SCH (06:32)
[2017-07-04] MEDS: INSULIN (LEVEMIR) 100 UNITS/ML UNITS SQ SCH (06:33)
[2017-07-04] MEDS: INSULIN SLIDING SCALE (NOVOLOG) 1 VIAL SQ SCH ×4 (06:33→21:27)
[2017-07-04] MEDS ORDERED: INSULIN (LEVEMIR) 100 UNITS/ML UNITS SQ ONE (06:41)
[2017-07-04 07:30] LABS: BASO % 0.1 % (0-2.0); HEMOGLOBIN 11.8 GM/dL (10.7-15.3); LYMPH % 5.4 % (8-40); MCH 28.5 pg (25.7-33.7); MCHC 32.7 g/dl (32.0-36.0); MEAN CELL VOLUME 87.4 fl (80-96); MEAN PLT VOLUME 9.8 fl (7.5-11.1); MONO % 3.4 % (3.8-10.2); NEUT % 91.1 % (42.8-82.8); PLATELET COUNT 288 K/MM3 (134-434); RBC 4.12 M/mm3 (3.60-5.2); RDW 22.1 % (11.6-15.6); WHITE BLOOD COUNT 12.7 K/mm3 (4.0-10.0)
[2017-07-04] MEDS: ARFORMOTEROL TARTRATE 15 MCG/2 ML VIAL NEB SCH ×2 (07:30→20:24)
[2017-07-04 08:01] LABS: ALBUMIN 2.9 g/dl (3.4-5.0); ANION GAP 10 (8-16); BLOOD UREA NITROGEN 58 mg/dL (7-18); CALCIUM 8.9 mg/dL (8.5-10.1); CHLORIDE 93 mmol/L (98-107); CO2 38 mmol/L (21-32); CREATININE 1.5 mg/dL (0.55-1.02); GLUCOSE,RANDOM 163 mg/dL (74-106); SGOT/AST 35 U/L (15-37); SGPT/ALT 33 U/L (12-78); SODIUM 141 mmol/L (136-145)
[2017-07-04 08:04] LABS: ALK PHOS 62 U/L (45-117); BILIRUBIN,TOTAL 1.7 mg/dL (0.2-1.0); TOT PROT 5.9 g/dl (6.4-8.2)
[2017-07-04] MEDS: MAGNESIUM HYDROX 2400MG/30ML ORAL SUSPENSION 30 ML CUP PO PRN (10:01)
[2017-07-04] MEDS: POLYETHYLENE GLYCOL 3350 119 GM BTL PO SCH (10:02)
[2017-07-04] MEDS: VALSARTAN 160 MG TABLET (UD) PO SCH (10:02)
[2017-07-04] MEDS: PANTOPRAZOLE 20 MG TABLET (FP) PO SCH (10:02)
[2017-07-04] MEDS: DIGOXIN 0.125 MG TABLET (FP) PO SCH (10:02)
[2017-07-04] MEDS: predniSONE 20 MG TABLET (UD) PO SCH (10:02)
[2017-07-04] MEDS: ASPIRIN 81 MG CHEWABLE TABLETS PO SCH (10:02)
[2017-07-04] MEDS: DABIGATRAN ETEXILATE MESYLATE 150 MG CAPSULE PO SCH ×2 (10:03→21:21)
[2017-07-04] MEDS: TIOTROPIUM BROMIDE 18 MCG CAPSULES IH SCH (10:19)
--- NOTE | 2017-07-04 12:04 | PN ---
Progress Note, Physician - Current Medication List Current Medications: Active Medications Albuterol Sulfate (Ventolin 0.042trength) -) 1 amp NEB Q4H PRN PRN Reason: SHORT OF BREATH/WHEEZING Last Admin: 06/30/17 15:42 Dose: 1 amp Arformoterol Tartrate (Brovana (Restricted To Pulmonology/Resp) -) 1 amp NEB RBID [facility] Last Admin: 07/04/17 07:30 Dose: 1 amp Aspirin (Asa -) 81 mg PO DAILY [facility] Last Admin: 07/04/17 10:02 Dose: 81 mg Dabigatran (Pradaxa -) 150 mg PO BID [facility] Last Admin: 07/04/17 10:03 Dose: 150 mg Digoxin (Lanoxin -) 0.125 mg PO DAILY [facility] Last Admin: 07/04/17 10:02 Dose: 0.125 mg Diltiazem HCl (Cardizem Cd -) 240 mg PO DAILY [facility] Last Admin: 07/04/17 10:02 Dose: 240 mg Docusate Sodium (Colace -) 300 mg PO HS [facility] Last Admin: 07/03/17 22:02 Dose: 200 mg Ergocalciferol (Drisdol -) 50,000 unit PO Tu@1000 [facility] Last Admin: 06/29/17 10:40 Dose: 50,000 unit Furosemide (Lasix Injection -) 40 mg IVPUSH BID@0600,1400 [facility] Last Admin: 07/04/17 06:32 Dose: 40 mg Piperacillin Sod/Tazobactam (Sod 3.375 gm/ Dextrose) 50 mls @ 100 mls/hr IVPB Q8H-IV FRAN PRN Reason: Protocol Last Admin: 07/04/17 10:02 Dose: 100 mls/hr Insulin Aspart (Novolog Vial Sliding Scale -) 1 vial SQ ACHS [facility] PRN Reason: Protocol Last Admin: 07/04/17 11:05 Dose: 5 unit Insulin Detemir (Levemir Vial) 10 units SQ AM [facility] Last Admin: 07/04/17 06:33 Dose: 10 units Magnesium Hydroxide (Milk Of Magnesia -) 30 ml PO Q8H PRN PRN Reason: INDIGESTION Last Admin: 07/04/17 10:01 Dose: 30 ml Pantoprazole Sodium (Protonix -) 20 mg PO DAILY [facility] Last Admin: 07/04/17 10:02 Dose: 20 mg Polyethylene Glycol (Miralax (For Daily Use) -) 17 gm PO DAILY [facility] Last Admin: 07/04/17 10:02 Dose: 17 gm Prednisone (Deltasone -) 40 mg PO DAILY [facility] Last Admin: 07/04/17 10:02 Dose: 40 mg Rosuvastatin Calcium (Crestor -) 20 mg PO HS [facility] Last Admin: 07/03/17 22:02 Dose: 20 mg Sitagliptin Phosphate (Januvia -) 50 mg PO DAILY@0700 [facility] Last Admin: 07/04/17 06:32 Dose: 50 mg Tiotropium [place] (Spiriva -) 1 puff IH DAILY [facility] Last Admin: 07/04/17 10:19 Dose: 1 puff Valsartan (Diovan -) 320 mg PO DAILY [facility] Last Admin: 07/04/17 10:02 Dose: 320 mg - Objective Vital Signs: Vital Signs Temperature 98.0 F 07/04/17 10:34 Pulse Rate 78 07/04/17 10:34 Respiratory Rate 20 07/04/17 10:34 Blood Pressure 133/76 07/04/17 10:34 O2 Sat by Pulse Oximetry (%) 95 07/03/17 21:00 Cardiovascular: Yes: S1, S2 Respiratory: Yes: Rhonchi Gastrointestinal: Yes: Normal Bowel Sounds, Soft Labs: CBC, BMP 07/04/17 06:00 07/04/17 06:00 INR, PTT INR 1.19 (0.82-1.09) H 06/22/17 10:13 Problem List - Problems (1) COPD (chronic obstructive pulmonary disease) with acute bronchitis Code(s): J44.0 - CHRONIC OBSTRUCTIVE PULMON DISEASE W ACUTE LOWER RESP INFCT (2) COPD exacerbation Code(s): J44.1 - CHRONIC OBSTRUCTIVE PULMONARY DISEASE W (ACUTE) EXACERBATION (3) CAD S/P percutaneous coronary angioplasty Code(s): I25.10 - ATHSCL HEART DISEASE OF [place] CORONARY ARTERY W/O ANG PCTRS; Z98.61 - CORONARY ANGIOPLASTY STATUS (4) CHF (congestive heart failure) Code(s): I50.9 - HEART FAILURE, UNSPECIFIED (5) Diabetes Code(s): E11.9 - TYPE 2 DIABETES MELLITUS WITHOUT COMPLICATIONS Qualifiers: Diabetes mellitus type: other specified (including YULISA) Diabetes mellitus correction insulin use: with meterman use Diabetes mellitus complication status: with unspecified complications Qualified Code(s): E13.8 - Other specified diabetes mellitus with unspecified complications (6) Atrial fibrillation Code(s): I48.91 - UNSPECIFIED ATRIAL FIBRILLATION Qualifiers: Atrial fibrillation type: chronic Qualified Code(s): I48.2 - Chronic atrial fibrillation Assessment/Plan - Problems (1) Atrial fibrillation Assessment/Plan: digoxin, caridzem and pradaxa dig level ok cardiology follow up Code(s): I48.91 - UNSPECIFIED ATRIAL FIBRILLATION Qualifiers: Atrial fibrillation type: chronic Qualified Code(s): I48.2 - Chronic atrial fibrillation (2) COPD (chronic obstructive pulmonary disease) with acute bronchitis Assessment/Plan: po prednisone on oxygen Code(s): J44.0 - CHRONIC OBSTRUCTIVE PULMON DISEASE W ACUTE LOWER RESP INFCT (3) Pneumonia Assessment/Plan: LLL-CAP repeat cxr restarted iv zosyn Code(s): J18.9 - PNEUMONIA, UNSPECIFIED ORGANISM (4) CAD S/P percutaneous coronary angioplasty Assessment/Plan: aspirin and statin ekg since had cp after eating banana--now no cp cardiology fu cardiac enzymes pending chest pressure relieved with protonix Code(s): I25.10 - ATHSCL HEART DISEASE OF [place] CORONARY ARTERY W/O ANG PCTRS; Z98.61 - CORONARY ANGIOPLASTY STATUS (5) CHF (congestive heart failure) Assessment/Plan: iv lasix bid for ankle edema repeat labs in am Code(s): I50.9 - HEART FAILURE, UNSPECIFIED (6) Diabetes Assessment/Plan: hgba1c 7.9 bgm noted medrol taper continue current insulin dose bgm will improve with medrol taper Code(s): E11.9 - TYPE 2 DIABETES MELLITUS WITHOUT COMPLICATIONS Qualifiers: Diabetes mellitus type: other specified (including YULISA) Diabetes mellitus correction insulin use: with meterman use Diabetes mellitus complication status: with unspecified complications Qualified Code(s): E13.8 - Other specified diabetes mellitus with unspecified complications
--- NOTE | 2017-07-04 12:33 | PN ---
Progress Note, Physician History of Present Illness: C/O pain L shoulder blade Breathing less labored today C/O dry cough No c/o fever/ chills Afebrile WBC slightly increased on prednisone - Current Medication List Current Medications: Active Medications Albuterol Sulfate (Ventolin 0.042trength) -) 1 amp NEB Q4H PRN PRN Reason: SHORT OF BREATH/WHEEZING Last Admin: 06/30/17 15:42 Dose: 1 amp Arformoterol Tartrate (Brovana (Restricted To Pulmonology/Resp) -) 1 amp NEB RBID [facility] Last Admin: 07/04/17 07:30 Dose: 1 amp Aspirin (Asa -) 81 mg PO DAILY [facility] Last Admin: 07/04/17 10:02 Dose: 81 mg Dabigatran (Pradaxa -) 150 mg PO BID [facility] Last Admin: 07/04/17 10:03 Dose: 150 mg Digoxin (Lanoxin -) 0.125 mg PO DAILY [facility] Last Admin: 07/04/17 10:02 Dose: 0.125 mg Diltiazem HCl (Cardizem Cd -) 240 mg PO DAILY [facility] Last Admin: 07/04/17 10:02 Dose: 240 mg Docusate Sodium (Colace -) 300 mg PO HS [facility] Last Admin: 07/03/17 22:02 Dose: 200 mg Ergocalciferol (Drisdol -) 50,000 unit PO Tu@1000 [facility] Last Admin: 06/29/17 10:40 Dose: 50,000 unit Furosemide (Lasix Injection -) 40 mg IVPUSH BID@0600,1400 [facility] Last Admin: 07/04/17 06:32 Dose: 40 mg Piperacillin Sod/Tazobactam (Sod 3.375 gm/ Dextrose) 50 mls @ 100 mls/hr IVPB Q8H-IV [facility] PRN Reason: Protocol Last Admin: 07/04/17 10:02 Dose: 100 mls/hr Insulin Aspart (Novolog Vial Sliding Scale -) 1 vial SQ ACHS [facility] PRN Reason: Protocol Last Admin: 07/04/17 11:05 Dose: 5 unit Insulin Detemir (Levemir Vial) 10 units SQ AM [facility] Last Admin: 07/04/17 06:33 Dose: 10 units Magnesium Hydroxide (Milk Of Magnesia -) 30 ml PO Q8H PRN PRN Reason: INDIGESTION Last Admin: 07/04/17 10:01 Dose: 30 ml Pantoprazole Sodium (Protonix -) 20 mg PO DAILY [facility] Last Admin: 07/04/17 10:02 Dose: 20 mg Polyethylene Glycol (Miralax (For Daily Use) -) 17 gm PO DAILY [facility] Last Admin: 07/04/17 10:02 Dose: 17 gm Prednisone (Deltasone -) 40 mg PO DAILY [facility] Last Admin: 07/04/17 10:02 Dose: 40 mg Rosuvastatin Calcium (Crestor -) 20 mg PO HS [facility] Last Admin: 07/03/17 22:02 Dose: 20 mg Sitagliptin Phosphate (Januvia -) 50 mg PO DAILY@0700 [facility] Last Admin: 07/04/17 06:32 Dose: 50 mg Tiotropium [place] (Spiriva -) 1 puff IH DAILY [facility] Last Admin: 07/04/17 10:19 Dose: 1 puff Valsartan (Diovan -) 320 mg PO DAILY [facility] Last Admin: 07/04/17 10:02 Dose: 320 mg - Objective Vital Signs: Vital Signs Temperature 98.0 F 07/04/17 10:34 Pulse Rate 78 07/04/17 10:34 Respiratory Rate 20 07/04/17 10:34 Blood Pressure 133/76 07/04/17 10:34 O2 Sat by Pulse Oximetry (%) 95 07/03/17 21:00 Constitutional: Yes: No Distress Cardiovascular: Yes: Regular Rate and Rhythm, S1, S2 Respiratory: Yes: Other (few crepitations at bases) Gastrointestinal: Yes: Normal Bowel Sounds, Soft. No: Tenderness Edema: Yes Edema: LLE: 1+, RLE: 1+ Integumentary: Yes: Other (+ erythema L lower shoulder blade area) Labs: CBC, BMP 07/04/17 06:00 07/04/17 06:00 INR, PTT INR 1.19 (0.82-1.09) H 06/22/17 10:13 Assessment/Plan ? HCAP COPD CHF L shoulder blade area pain / erythema ? early VZV Continue empiric zosyn Continue bronchodilators, prednisone, lasix Monitor for development of vesicular rash
[2017-07-04] MEDS ORDERED: ACETAMINOPHEN 500 MG TABLET (FP) PO PRN (13:19)
--- NOTE | 2017-07-04 14:43 | PN ---
Progress Note, Physician History of Present Illness: pulmonary alert,less dyspneic,c/o left shoulder blade pain - Current Medication List Current Medications: Active Medications Acetaminophen (Tylenol -) 1,000 mg PO Q8H PRN PRN Reason: PAIN SCALE 0-4 Last Admin: 07/04/17 14:01 Dose: 1,000 mg Albuterol Sulfate (Ventolin 0.042trength) -) 1 amp NEB Q4H PRN PRN Reason: SHORT OF BREATH/WHEEZING Last Admin: 06/30/17 15:42 Dose: 1 amp Arformoterol Tartrate (Brovana (Restricted To Pulmonology/Resp) -) 1 amp NEB RBID [facility] Last Admin: 07/04/17 07:30 Dose: 1 amp Aspirin (Asa -) 81 mg PO DAILY [facility] Last Admin: 07/04/17 10:02 Dose: 81 mg Dabigatran (Pradaxa -) 150 mg PO BID [facility] Last Admin: 07/04/17 10:03 Dose: 150 mg Digoxin (Lanoxin -) 0.125 mg PO DAILY [facility] Last Admin: 07/04/17 10:02 Dose: 0.125 mg Diltiazem HCl (Cardizem Cd -) 240 mg PO DAILY [facility] Last Admin: 07/04/17 10:02 Dose: 240 mg Docusate Sodium (Colace -) 300 mg PO HS [facility] Last Admin: 07/03/17 22:02 Dose: 200 mg Ergocalciferol (Drisdol -) 50,000 unit PO Tu@1000 [facility] Last Admin: 06/29/17 10:40 Dose: 50,000 unit Furosemide (Lasix Injection -) 40 mg IVPUSH BID@0600,1400 [facility] Last Admin: 07/04/17 14:01 Dose: 40 mg Piperacillin Sod/Tazobactam (Sod 3.375 gm/ Dextrose) 50 mls @ 100 mls/hr IVPB Q8H-IV [facility] PRN Reason: Protocol Last Admin: 07/04/17 10:02 Dose: 100 mls/hr Insulin Aspart (Novolog Vial Sliding Scale -) 1 vial SQ ACHS [facility] PRN Reason: Protocol Last Admin: 07/04/17 11:05 Dose: 5 unit Insulin Detemir (Levemir Vial) 10 units SQ AM [facility] Last Admin: 07/04/17 06:33 Dose: 10 units Magnesium Hydroxide (Milk Of Magnesia -) 30 ml PO Q8H PRN PRN Reason: INDIGESTION Last Admin: 07/04/17 10:01 Dose: 30 ml Pantoprazole Sodium (Protonix -) 20 mg PO DAILY [facility] Last Admin: 07/04/17 10:02 Dose: 20 mg Polyethylene Glycol (Miralax (For Daily Use) -) 17 gm PO DAILY [facility] Last Admin: 07/04/17 10:02 Dose: 17 gm Prednisone (Deltasone -) 40 mg PO DAILY [facility] Last Admin: 07/04/17 10:02 Dose: 40 mg Rosuvastatin Calcium (Crestor -) 20 mg PO HS [facility] Last Admin: 07/03/17 22:02 Dose: 20 mg Sitagliptin Phosphate (Januvia -) 50 mg PO DAILY@0700 [facility] Last Admin: 07/04/17 06:32 Dose: 50 mg Tiotropium [place] (Spiriva -) 1 puff IH DAILY [facility] Last Admin: 07/04/17 10:19 Dose: 1 puff Valsartan (Diovan -) 320 mg PO DAILY [facility] Last Admin: 07/04/17 10:02 Dose: 320 mg - Objective Vital Signs: Vital Signs Temperature 97.5 F L 07/04/17 14:27 Pulse Rate 62 07/04/17 14:27 Respiratory Rate 20 07/04/17 14:27 Blood Pressure 89/43 07/04/17 14:27 O2 Sat by Pulse Oximetry (%) 95 07/04/17 09:00 Constitutional: Yes: Well Nourished, Calm Eyes: Yes: WNL HENT: Yes: WNL Neck: Yes: WNL Cardiovascular: Yes: Pulse Irregular, S1, S2 Respiratory: Yes: Rales (bibasilar crackles) Extremities: Yes: WNL Edema: Yes Labs: CBC, BMP 07/04/17 06:00 07/04/17 06:00 INR, PTT INR 1.19 (0.82-1.09) H 06/22/17 10:13 Assessment/Plan A/P Pneumonia Acute COPD Exacerbation improving Chronic Hypoxic Respiratory Failure LV Diastolic Dysfunction Atrial Fibrillation Mitral Regurgitation CAD HTN DM Hyperlipidemia - antibiotics as per id - prednisone - lasix - glucose control while on systemic steroids - inhaled bronchodilators - O2 to keep SpO2 >90% - rate control - anticoagulation - analgesics Problem List - Problems (1) COPD exacerbation Code(s): J44.1 - CHRONIC OBSTRUCTIVE PULMONARY DISEASE W (ACUTE) EXACERBATION (2) Pneumonia Code(s): J18.9 - PNEUMONIA, UNSPECIFIED ORGANISM (3) CAD S/P percutaneous coronary angioplasty Code(s): I25.10 - ATHSCL HEART DISEASE OF [place] CORONARY ARTERY W/O ANG PCTRS; Z98.61 - CORONARY ANGIOPLASTY STATUS (4) Dyslipidemia Code(s): E78.5 - HYPERLIPIDEMIA, UNSPECIFIED (5) HTN (hypertension) Code(s): I10 - ESSENTIAL (PRIMARY) HYPERTENSION Qualifiers: Hypertension type: essential hypertension Qualified Code(s): I10 - Essential (primary) hypertension (6) Mitral valve regurgitation Code(s): I34.0 - NONRHEUMATIC MITRAL (VALVE) INSUFFICIENCY Qualifiers: Cardiac valve disease etiology: etiology unspecified Qualified Code(s): I34.0 - Nonrheumatic mitral (valve) insufficiency
[2017-07-04] MEDS ORDERED: INSULIN (NOVOLOG) ASPART 100 UNITS/ML 10ML VIAL ONE (19:02)
[2017-07-04] MEDS ORDERED: PT OWN MED DRAWER 7, Y5N ONE (20:14)
[2017-07-04] MEDS: DOCUSATE SODIUM 100 MG CAPSULE (FP) PO SCH (21:21)
[2017-07-04] MEDS: ROSUVASTATIN CA 20 MG TABLET (FP) PO SCH (21:21)
[2017-07-05] MEDS ORDERED: PIPERACILLIN/TAZOBACTAM 3.375 GM VIAL IVPB ONE ×3 (01:09→17:48)
[2017-07-05] MEDS ORDERED: DEXTROSE 5%-WATER - 50 ML IVPB ONE ×3 (01:10→17:49)
[2017-07-05] MEDS: PIPERACILLIN/TAZOB 3.375 GM 3.375 GM in DEXTROSE 5%-WATER - 50 ML IVPB SCH ×3 (01:16→18:08)
[2017-07-05] MEDS: INSULIN SLIDING SCALE (NOVOLOG) 1 VIAL SQ SCH ×4 (06:01→21:43)
[2017-07-05] MEDS: sitaGLIPtin PHOSPHATE 50 MG TABLET PO SCH (06:31)
[2017-07-05] MEDS: FUROSEMIDE 40 MG/4 ML INJECTABLE VIAL IVPUSH SCH (06:31)
[2017-07-05] MEDS: INSULIN (LEVEMIR) 100 UNITS/ML UNITS SQ SCH (06:31)
[2017-07-05] MEDS: ARFORMOTEROL TARTRATE 15 MCG/2 ML VIAL NEB SCH ×2 (07:10→21:07)
[2017-07-05] MEDS ORDERED: PT OWN MED DRAWER 7, Y5N ONE (09:06)
[2017-07-05] MEDS: PANTOPRAZOLE 20 MG TABLET (FP) PO SCH (10:37)
[2017-07-05] MEDS: TIOTROPIUM BROMIDE 18 MCG CAPSULES IH SCH (10:37)
[2017-07-05] MEDS: DABIGATRAN ETEXILATE MESYLATE 150 MG CAPSULE PO SCH ×2 (10:37→21:41)
[2017-07-05] MEDS: ASPIRIN 81 MG CHEWABLE TABLETS PO SCH (10:37)
[2017-07-05] MEDS: VALSARTAN 160 MG TABLET (UD) PO SCH (10:38)
[2017-07-05] MEDS: DIGOXIN 0.125 MG TABLET (FP) PO SCH (10:38)
[2017-07-05] MEDS: POLYETHYLENE GLYCOL 3350 119 GM BTL PO SCH (10:39)
[2017-07-05] MEDS: predniSONE 10 MG TABLET (UD) PO SCH (10:41)
[2017-07-05] MEDS ORDERED: INSULIN (NOVOLOG) ASPART 100 UNITS/ML 10ML VIAL ONE ×2 (11:28→21:43)
--- NOTE | 2017-07-05 12:50 | PN ---
Progress Note, Physician Chief Complaint: patient seen today noted to have low BP also difficulty with swallowing BP meds held - Current Medication List Current Medications: Active Medications Acetaminophen (Tylenol -) 1,000 mg PO Q8H PRN PRN Reason: PAIN SCALE 0-4 Last Admin: 07/04/17 14:01 Dose: 1,000 mg Arformoterol Tartrate (Brovana (Restricted To Pulmonology/Resp) -) 1 amp NEB RBID [facility] Last Admin: 07/05/17 07:10 Dose: 1 amp Aspirin (Asa -) 81 mg PO DAILY [facility] Last Admin: 07/05/17 10:37 Dose: 81 mg Dabigatran (Pradaxa -) 150 mg PO BID [facility] Last Admin: 07/05/17 10:37 Dose: 150 mg Digoxin (Lanoxin -) 0.125 mg PO DAILY [facility] Last Admin: 07/05/17 10:38 Dose: Not Given Diltiazem HCl (Cardizem Cd -) 240 mg PO DAILY [facility] Last Admin: 07/05/17 10:38 Dose: Not Given Docusate Sodium (Colace -) 300 mg PO HS [facility] Last Admin: 07/04/17 21:21 Dose: 200 mg Ergocalciferol (Drisdol -) 50,000 unit PO Tu@1000 [facility] Last Admin: 06/29/17 10:40 Dose: 50,000 unit Furosemide (Lasix Injection -) 40 mg IVPUSH BID@0600,1400 [facility] Last Admin: 07/05/17 06:31 Dose: 40 mg Piperacillin Sod/Tazobactam (Sod 3.375 gm/ Dextrose) 50 mls @ 100 mls/hr IVPB Q8H-IV [facility] PRN Reason: Protocol Last Admin: 07/05/17 10:35 Dose: 100 mls/hr Insulin Aspart (Novolog Vial Sliding Scale -) 1 vial SQ ACHS [facility] PRN Reason: Protocol Last Admin: 07/05/17 11:59 Dose: 6 unit Insulin Detemir (Levemir Vial) 10 units SQ AM [facility] Last Admin: 07/05/17 06:31 Dose: 10 units Magnesium Hydroxide (Milk Of Magnesia -) 30 ml PO Q8H PRN PRN Reason: INDIGESTION Last Admin: 07/04/17 10:01 Dose: 30 ml Pantoprazole Sodium (Protonix -) 20 mg PO DAILY [facility] Last Admin: 07/05/17 10:37 Dose: 20 mg Polyethylene Glycol (Miralax (For Daily Use) -) 17 gm PO DAILY [facility] Last Admin: 07/05/17 10:39 Dose: Not Given Prednisone (Deltasone -) 30 mg PO DAILY [facility] Last Admin: 07/05/17 10:41 Dose: 30 mg Rosuvastatin Calcium (Crestor -) 20 mg PO HS [facility] Last Admin: 07/04/17 21:21 Dose: 20 mg Sitagliptin Phosphate (Januvia -) 50 mg PO DAILY@0700 [facility] Last Admin: 07/05/17 06:31 Dose: 50 mg Tiotropium [place] (Spiriva -) 1 puff IH DAILY [facility] Last Admin: 07/05/17 10:37 Dose: 1 puff Valsartan (Diovan -) 320 mg PO DAILY [facility] Last Admin: 07/05/17 10:38 Dose: Not Given - Objective Vital Signs: Vital Signs Temperature 97.4 F L 07/05/17 09:00 Pulse Rate 63 07/05/17 09:00 Respiratory Rate 20 07/05/17 09:00 Blood Pressure 111/38 07/05/17 09:00 O2 Sat by Pulse Oximetry (%) 98 07/04/17 21:00 Constitutional: Yes: Calm Neck: Yes: Trachea Midline Cardiovascular: Yes: S1, S2 Respiratory: Yes: Rhonchi (scattered ,no wheezing) Gastrointestinal: Yes: Normal Bowel Sounds, Soft Labs: CBC, BMP 07/04/17 06:00 07/04/17 06:00 INR, PTT INR 1.19 (0.82-1.09) H 06/22/17 10:13 Problem List - Problems (1) Atrial fibrillation Assessment/Plan: digoxin,rate control angel cut down on dose of cardizem from 240 to 120mg caridzem and pradaxa dig level ok Code(s): I48.91 - UNSPECIFIED ATRIAL FIBRILLATION Qualifiers: Atrial fibrillation type: chronic Qualified Code(s): I48.2 - Chronic atrial fibrillation (2) COPD (chronic obstructive pulmonary disease) with acute bronchitis Assessment/Plan: po prednisone tape today to 30mg on oxygen Code(s): J44.0 - CHRONIC OBSTRUCTIVE PULMON DISEASE W ACUTE LOWER RESP INFCT (3) Pneumonia Assessment/Plan: LLL-CAP repeat cxr restarted iv zosyn Code(s): J18.9 - PNEUMONIA, UNSPECIFIED ORGANISM (4) CAD S/P percutaneous coronary angioplasty Assessment/Plan: aspirin and statin ekg done no change from previous atypical chest pressure resolved chest pressure relieved with protonix Code(s): I25.10 - ATHSCL HEART DISEASE OF [place] CORONARY ARTERY W/O ANG PCTRS; Z98.61 - CORONARY ANGIOPLASTY STATUS (5) CHF (congestive heart failure) Assessment/Plan: iv lasix change to po bid for ankle edema held today for low BP cardiology follow up regarding low BP will cut down on dose of cardizem and diovan Code(s): I50.9 - HEART FAILURE, UNSPECIFIED (6) Diabetes Assessment/Plan: hgba1c 7.9 bgm noted on levemir 10units medrol taper continue current insulin dose bgm will improve with medrol taper Code(s): E11.9 - TYPE 2 DIABETES MELLITUS WITHOUT COMPLICATIONS Qualifiers: Diabetes mellitus type: other specified (including YULISA) Diabetes mellitus fdc insulin use: with fdc use Diabetes mellitus complication status: with unspecified complications Qualified Code(s): E13.8 - Other specified diabetes mellitus with unspecified complications Assessment/Plan difficulty swallowing consult placed for jimmie jose and MBS ordered
[2017-07-05] MEDS ORDERED: VALSARTAN 160 MG TABLET (UD) PO SCH (12:55)
--- NOTE | 2017-07-05 14:35 | PN ---
Progress Note, Physician History of Present Illness: pulmonary alert,nad,feeling better,less dyspneic. - Current Medication List Current Medications: Active Medications Acetaminophen (Tylenol -) 1,000 mg PO Q8H PRN PRN Reason: PAIN SCALE 0-4 Last Admin: 07/04/17 14:01 Dose: 1,000 mg Arformoterol Tartrate (Brovana (Restricted To Pulmonology/Resp) -) 1 amp NEB RBID [facility] Last Admin: 07/05/17 07:10 Dose: 1 amp Aspirin (Asa -) 81 mg PO DAILY [facility] Last Admin: 07/05/17 10:37 Dose: 81 mg Dabigatran (Pradaxa -) 150 mg PO BID [facility] Last Admin: 07/05/17 10:37 Dose: 150 mg Digoxin (Lanoxin -) 0.125 mg PO DAILY [facility] Last Admin: 07/05/17 10:38 Dose: Not Given Diltiazem HCl (Cardizem Cd -) 120 mg PO DAILY [facility] Docusate Sodium (Colace -) 300 mg PO HS [facility] Last Admin: 07/04/17 21:21 Dose: 200 mg Ergocalciferol (Drisdol -) 50,000 unit PO Tu@1000 [facility] Last Admin: 06/29/17 10:40 Dose: 50,000 unit Furosemide (Lasix -) 40 mg PO BID@0600,1400 [facility] Piperacillin Sod/Tazobactam (Sod 3.375 gm/ Dextrose) 50 mls @ 100 mls/hr IVPB Q8H-IV [facility] PRN Reason: Protocol Last Admin: 07/05/17 10:35 Dose: 100 mls/hr Insulin Aspart (Novolog Vial Sliding Scale -) 1 vial SQ ACHS [facility] PRN Reason: Protocol Last Admin: 07/05/17 11:59 Dose: 6 unit Insulin Detemir (Levemir Vial) 10 units SQ AM [facility] Last Admin: 07/05/17 06:31 Dose: 10 units Magnesium Hydroxide (Milk Of Magnesia -) 30 ml PO Q8H PRN PRN Reason: INDIGESTION Last Admin: 07/04/17 10:01 Dose: 30 ml Pantoprazole Sodium (Protonix -) 20 mg PO DAILY [facility] Last Admin: 07/05/17 10:37 Dose: 20 mg Polyethylene Glycol (Miralax (For Daily Use) -) 17 gm PO DAILY [facility] Last Admin: 07/05/17 10:39 Dose: Not Given Prednisone (Deltasone -) 30 mg PO DAILY [facility] Last Admin: 07/05/17 10:41 Dose: 30 mg Rosuvastatin Calcium (Crestor -) 20 mg PO HS [facility] Last Admin: 07/04/17 21:21 Dose: 20 mg Sitagliptin Phosphate (Januvia -) 50 mg PO DAILY@0700 [facility] Last Admin: 07/05/17 06:31 Dose: 50 mg Tiotropium [place] (Spiriva -) 1 puff IH DAILY [facility] Last Admin: 07/05/17 10:37 Dose: 1 puff Valsartan (Diovan -) 160 mg PO DAILY [facility] - Objective Vital Signs: Vital Signs Temperature 97.3 F L 07/05/17 13:45 Pulse Rate 70 07/05/17 13:45 Respiratory Rate 18 07/05/17 13:45 Blood Pressure 105/55 07/05/17 13:45 O2 Sat by Pulse Oximetry (%) 98 07/04/17 21:00 Constitutional: Yes: Well Nourished, Calm Eyes: Yes: WNL HENT: Yes: WNL Neck: Yes: WNL Cardiovascular: Yes: Pulse Irregular, S1, S2 Respiratory: Yes: Rales (bibasilar crackles) Gastrointestinal: Yes: Normal Bowel Sounds, Soft Extremities: Yes: WNL Edema: No Labs: CBC, BMP 07/04/17 06:00 Assessment/Plan A/P Pneumonia Acute COPD Exacerbation improving Chronic Hypoxic Respiratory Failure LV Diastolic Dysfunction Atrial Fibrillation Mitral Regurgitation CAD HTN DM Hyperlipidemia - antibiotics as per id - prednisone - lasix - glucose control while on systemic steroids - inhaled bronchodilators - O2 to keep SpO2 >90% - rate control - anticoagulation - analgesics Problem List - Problems (1) COPD exacerbation Code(s): J44.1 - CHRONIC OBSTRUCTIVE PULMONARY DISEASE W (ACUTE) EXACERBATION (2) Pneumonia Code(s): J18.9 - PNEUMONIA, UNSPECIFIED ORGANISM (3) CAD S/P percutaneous coronary angioplasty Code(s): I25.10 - ATHSCL HEART DISEASE OF [place] CORONARY ARTERY W/O ANG PCTRS; Z98.61 - CORONARY ANGIOPLASTY STATUS (4) Dyslipidemia Code(s): E78.5 - HYPERLIPIDEMIA, UNSPECIFIED (5) HTN (hypertension) Code(s): I10 - ESSENTIAL (PRIMARY) HYPERTENSION Qualifiers: Hypertension type: essential hypertension Qualified Code(s): I10 - Essential (primary) hypertension (6) Mitral valve regurgitation Code(s): I34.0 - NONRHEUMATIC MITRAL (VALVE) INSUFFICIENCY Qualifiers: Cardiac valve disease etiology: etiology unspecified Qualified Code(s): I34.0 - Nonrheumatic mitral (valve) insufficiency
[2017-07-05] MEDS: FUROSEMIDE 40 MG TABLET (FP) PO SCH (14:40)
--- NOTE | 2017-07-05 15:45 | CONSULT ---
Admitting History and Physical - Past Medical History Cardiovascular: Yes: AFIB, CAD (S/P STENTING), CHF, HTN, Hyperlipdemia Pulmonary: Yes: COPD, O2 Dependent Musculoskeletal: Yes: Chronic low back pain Endocrine: Yes: Diabetes Mellitus - Smoking History Smoking history: Former smoker Have you smoked in the past 12 months: No Aproximately how many cigarettes per day: 0 If you are a former smoker, when did you quit?: 6 - Alcohol/Substance Use Hx Alcohol Use: No History - Admission Reason For Visit: PNEUMONIA - Hearing Hearing: Normal Speech Evaluation - Communication Primary Language: [place] Communication: Yes: Within Normal Limits Oral Expression Ability: Yes: No Impairment - Speech Production Apraxia: No Able to Make Needs Known: Yes: WNL Intelligibility: Yes: WNL - Speech Characteristics Voice Loudness: Normal Voice Pitch: Yes: Normal Voice Phonatory-based Quality: Yes: Normal Nasal Resonance: Normal Articulation: Yes: Precise Rate of Speech: Intact Voice Comment: Vocal quality is WFL - Language/Auditory Comprehension Follows: Yes: 1 Stage Simple Commands (WFL), 2 Stage Simple Commands (WFL) Observation: Able to respond to yes/no queries: Yes, Yes/No Confusion: No, Comprehends Conversational Speech: Yes, Benefits from Slow Speech: No, Benefits from Repetiton: No, Benefits from Increased Volume of Speech: No - Language/Verbal Expression Able to Respond to Simple Queries: Yes: WNL Able to Communicate Wants and Needs: Yes: WNL Functional Communication Status: Yes: WNL Aware of Errors: Yes Attempts to Correct Errors: Yes Use of Gestures: No Written Expression: not examined Oral Expression: WFL Reading Comprehension: not examined Calculations: not examined Attention: Yes: 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 Jaw Position: Closed at Rest Against Resistance Opening: Normal Against Resistance Closing: Normal Pucker Lips: Normal Smile: Normal Lips, Comment: WF for speech and swallowing purposes. Lingual Movement: Normal Lingual Speed of Movement: Normal Lingual Movement Strgth Against Opposition: Normal Lingual Movement Characteristics: Normal Lingual Comment: WF for speech and swallowing purposes. Soft Palate Description: Normal Color, Normal Arch Hard Palate Description: Normal Color, Normal Arch Gag Reflex: Strong Bite Reflex: Present Velopharyngeal Movement: Normal Laryngeal Elevation: Impaired (mild delay 2-3) Laryngeal Movement: Able to Palpate, Labored,delay initiation Needs Assistance: No Rate of Intake: WFL Bolus Size: WFL Labial Seal: WFL Chewing: Impaired (secondary to edentulous status) Oral Prep Time: WFL A-P Transit: Impaired (mild delay secondary to bolus formation) Pocketing: None Timing of Swallow: Delayed Odynophagia: Oral Coughing/Throat Clear: No Change in Voice: No Other Findings/Remarks: 82 yo female seen at bedside for swallow eval to r/o dysphagia. Pt is verbal A& Ox3 cooperative. Vocal quality is adequate for good airway protection. PHM COPD, RF, A-Fib, CAD, HTM, DM. Admitted to [facility] for respiratory distress. Current Diet: Diabetic regular diet thin liquids. Respiratory status: N/C. Pt refer for dysphagia evaluation due to self report of medications "getting stuck" in her throat. MBS ordered. Pt given po trials of pureed and regular solids with minimal assistance revealed good acceptance, delayed bolus formation (secondary to dental status) and A-P transport. Pharyngeal swallow is mildly delayed (2-3 seconds average). No cough or changes in voicing. Slight increase in respiration after multiple swallows. Thin liquids trial were unremarkable for dysphagia and / or aspiration at this time. Recommendations - Speech Evaluation, Impression/Plan Impression: Pt presents with mild adan-pharyngeal dysphagia for all solid consistencies secondary to dental status. Increased bolus formation time and transit timeis required. Pharyngeal swallow is delayed 2-3 seconds average with no s/s aspiration at this time. Clinical Lab Clerk Goals: Tolerate the least restrictive diet w/o signs of aspiration Short Term Goals: Tolerate purees regular solids and thin without s/s of aspiration. - Dysphagia Impressions/Plan Swallowing Skills: Impaired Dysphagia Impressions: Mild Impairment, Risk of Aspiration *Silent aspiration: cannot be R/O at bedside Dysphagia Treatment Plan: Small Bites, Safe Rate, 1/2 tsp. at a time, Elevate HOB during feed Dysphagia Evaluation Summary: Continue current diet of diabetic regular solids with thin liquids as tolerated. Observed standard aspiration precautions. Crush meds in purees for ease of swallow. Monitor pulmonary status and nutritional intake. Results given verbally to rn dischargeKELLEN Huddleston and pcp via chart. MBS ordered. [employer] to follow up. Recommendations: Modified Barium Swallow (ordered 07/05/17) - Recommendations Diet Consistency: Regular (diabetic), Dietary Restrictions/MD Liquids: Thin Liquids
--- NOTE | 2017-07-05 16:30 | PN ---
Progress Note, Physician History of Present Illness: C/O pruritis L shoulder blade Breathing less labored Less cough No c/o fever/ chills Afebrile WBC slightly increased on prednisone - Current Medication List Current Medications: Active Medications Acetaminophen (Tylenol -) 1,000 mg PO Q8H PRN PRN Reason: PAIN SCALE 0-4 Last Admin: 07/04/17 14:01 Dose: 1,000 mg Arformoterol Tartrate (Brovana (Restricted To Pulmonology/Resp) -) 1 amp NEB RBID [facility] Last Admin: 07/05/17 07:10 Dose: 1 amp Aspirin (Asa -) 81 mg PO DAILY [facility] Last Admin: 07/05/17 10:37 Dose: 81 mg Dabigatran (Pradaxa -) 150 mg PO BID [facility] Last Admin: 07/05/17 10:37 Dose: 150 mg Digoxin (Lanoxin -) 0.125 mg PO DAILY [facility] Last Admin: 07/05/17 10:38 Dose: Not Given Diltiazem HCl (Cardizem Cd -) 120 mg PO DAILY [facility] Docusate Sodium (Colace -) 300 mg PO HS [facility] Last Admin: 07/04/17 21:21 Dose: 200 mg Ergocalciferol (Drisdol -) 50,000 unit PO Tu@1000 [facility] Last Admin: 06/29/17 10:40 Dose: 50,000 unit Furosemide (Lasix -) 40 mg PO BID@0600,1400 [facility] Last Admin: 07/05/17 14:40 Dose: 40 mg Piperacillin Sod/Tazobactam (Sod 3.375 gm/ Dextrose) 50 mls @ 100 mls/hr IVPB Q8H-IV [facility] PRN Reason: Protocol Last Admin: 07/05/17 10:35 Dose: 100 mls/hr Insulin Aspart (Novolog Vial Sliding Scale -) 1 vial SQ ACHS [facility] PRN Reason: Protocol Last Admin: 07/05/17 11:59 Dose: 6 unit Insulin Detemir (Levemir Vial) 10 units SQ AM [facility] Last Admin: 07/05/17 06:31 Dose: 10 units Magnesium Hydroxide (Milk Of Magnesia -) 30 ml PO Q8H PRN PRN Reason: INDIGESTION Last Admin: 07/04/17 10:01 Dose: 30 ml Pantoprazole Sodium (Protonix -) 20 mg PO DAILY [facility] Last Admin: 07/05/17 10:37 Dose: 20 mg Polyethylene Glycol (Miralax (For Daily Use) -) 17 gm PO DAILY [facility] Last Admin: 07/05/17 10:39 Dose: Not Given Prednisone (Deltasone -) 30 mg PO DAILY [facility] Last Admin: 07/05/17 10:41 Dose: 30 mg Rosuvastatin Calcium (Crestor -) 20 mg PO HS [facility] Last Admin: 07/04/17 21:21 Dose: 20 mg Sitagliptin Phosphate (Januvia -) 50 mg PO DAILY@0700 [facility] Last Admin: 07/05/17 06:31 Dose: 50 mg Tiotropium [place] (Spiriva -) 1 puff IH DAILY [facility] Last Admin: 07/05/17 10:37 Dose: 1 puff Valsartan (Diovan -) 160 mg PO DAILY [facility] - Objective Vital Signs: Vital Signs Temperature 97.3 F L 07/05/17 13:45 Pulse Rate 70 07/05/17 13:45 Respiratory Rate 18 07/05/17 13:45 Blood Pressure 105/55 07/05/17 13:45 O2 Sat by Pulse Oximetry (%) 92 L 07/05/17 09:00 Constitutional: Yes: No Distress Cardiovascular: Yes: Regular Rate and Rhythm, S1, S2 Respiratory: Yes: Other (crepitations, bases) Gastrointestinal: Yes: Normal Bowel Sounds, Soft. No: Tenderness Integumentary: Yes: Other (erythema, L thoracic paraspinal area No vesicles) Labs: CBC, BMP 07/04/17 06:00 07/04/17 06:00 INR, PTT INR 1.19 (0.82-1.09) H 06/22/17 10:13 Assessment/Plan ? HCAP COPD CHF L shoulder blade area pain / erythema ? early VZV no vesicular lesions noted Continue empiric zosyn Continue bronchodilators, prednisone, lasix Monitor for development of vesicular rash
[2017-07-05] MEDS: DOCUSATE SODIUM 100 MG CAPSULE (FP) PO SCH (21:40)
[2017-07-05] MEDS: ROSUVASTATIN CA 20 MG TABLET (FP) PO SCH (21:41)
[2017-07-06] MEDS ORDERED: PIPERACILLIN/TAZOBACTAM 3.375 GM VIAL IVPB ONE ×2 (00:57→10:55)
[2017-07-06] MEDS ORDERED: DEXTROSE 5%-WATER - 50 ML IVPB ONE ×2 (00:57→10:55)
[2017-07-06] MEDS: PIPERACILLIN/TAZOB 3.375 GM 3.375 GM in DEXTROSE 5%-WATER - 50 ML IVPB SCH ×2 (01:13→10:56)
[2017-07-06] MEDS: INSULIN (LEVEMIR) 100 UNITS/ML UNITS SQ SCH (06:03)
[2017-07-06] MEDS: FUROSEMIDE 40 MG TABLET (FP) PO SCH ×2 (06:03→14:28)
[2017-07-06] MEDS: INSULIN SLIDING SCALE (NOVOLOG) 1 VIAL SQ SCH ×5 (06:03→22:16)
[2017-07-06] MEDS: sitaGLIPtin PHOSPHATE 50 MG TABLET PO SCH (06:04)
[2017-07-06] MEDS: ARFORMOTEROL TARTRATE 15 MCG/2 ML VIAL NEB SCH ×2 (08:07→20:48)
[2017-07-06] MEDS: predniSONE 10 MG TABLET (UD) PO SCH (10:57)
[2017-07-06] MEDS: ASPIRIN 81 MG CHEWABLE TABLETS PO SCH (10:57)
[2017-07-06] MEDS: VALSARTAN 160 MG TABLET (UD) PO SCH (10:57)
[2017-07-06] MEDS: TIOTROPIUM BROMIDE 18 MCG CAPSULES IH SCH (10:57)
[2017-07-06] MEDS: DIGOXIN 0.125 MG TABLET (FP) PO SCH (10:57)
[2017-07-06] MEDS: PANTOPRAZOLE 20 MG TABLET (FP) PO SCH (10:57)
[2017-07-06] MEDS: DABIGATRAN ETEXILATE MESYLATE 150 MG CAPSULE PO SCH ×2 (10:58→22:25)
[2017-07-06] MEDS: POLYETHYLENE GLYCOL 3350 119 GM BTL PO SCH (10:58)
[2017-07-06] MEDS: ERGOCALCIFEROL (VITAMIN D2) 50,000 UNIT CAPSULE (FP) PO SCH (11:00)
[2017-07-06] MEDS ORDERED: INSULIN (NOVOLOG) ASPART 100 UNITS/ML 10ML VIAL ONE (11:58)
--- NOTE | 2017-07-06 13:31 | PN ---
Progress Note, Physician History of Present Illness: Still with C/O pruritis L shoulder blade Reports less dyspnea Breathing appears less labored Less cough No c/o fever/ chills Afebrile WBC slightly increased on prednisone - Current Medication List Current Medications: Active Medications Acetaminophen (Tylenol -) 1,000 mg PO Q8H PRN PRN Reason: PAIN SCALE 0-4 Last Admin: 07/04/17 14:01 Dose: 1,000 mg Arformoterol Tartrate (Brovana (Restricted To Pulmonology/Resp) -) 1 amp NEB RBID [facility] Last Admin: 07/06/17 08:07 Dose: 1 amp Aspirin (Asa -) 81 mg PO DAILY [facility] Last Admin: 07/06/17 10:57 Dose: 81 mg Dabigatran (Pradaxa -) 150 mg PO BID [facility] Last Admin: 07/06/17 10:58 Dose: 150 mg Digoxin (Lanoxin -) 0.125 mg PO DAILY [facility] Last Admin: 07/06/17 10:57 Dose: 0.125 mg Diltiazem HCl (Cardizem Cd -) 120 mg PO DAILY [facility] Last Admin: 07/06/17 10:57 Dose: 120 mg Docusate Sodium (Colace -) 300 mg PO HS [facility] Last Admin: 07/05/17 21:40 Dose: 300 mg Ergocalciferol (Drisdol -) 50,000 unit PO Tu@1000 [facility] Last Admin: 07/06/17 11:00 Dose: 50,000 unit Furosemide (Lasix -) 40 mg PO BID@0600,1400 [facility] Last Admin: 07/06/17 06:03 Dose: 40 mg Piperacillin Sod/Tazobactam (Sod 3.375 gm/ Dextrose) 50 mls @ 100 mls/hr IVPB Q8H-IV FRAN PRN Reason: Protocol Last Admin: 07/06/17 10:56 Dose: 100 mls/hr Insulin Aspart (Novolog Vial Sliding Scale -) 1 vial SQ ACHS [facility] PRN Reason: Protocol Last Admin: 07/06/17 11:59 Dose: 6 unit Insulin Detemir (Levemir Vial) 10 units SQ AM [facility] Last Admin: 07/06/17 06:03 Dose: Not Given Magnesium Hydroxide (Milk Of Magnesia -) 30 ml PO Q8H PRN PRN Reason: INDIGESTION Last Admin: 07/04/17 10:01 Dose: 30 ml Pantoprazole Sodium (Protonix -) 20 mg PO DAILY [facility] Last Admin: 07/06/17 10:57 Dose: 20 mg Polyethylene Glycol (Miralax (For Daily Use) -) 17 gm PO DAILY [facility] Last Admin: 07/06/17 10:58 Dose: Not Given Prednisone (Deltasone -) 30 mg PO DAILY [facility] Last Admin: 07/06/17 10:57 Dose: 30 mg Rosuvastatin Calcium (Crestor -) 20 mg PO HS [facility] Last Admin: 07/05/17 21:41 Dose: 20 mg Sitagliptin Phosphate (Januvia -) 50 mg PO DAILY@0700 [facility] Last Admin: 07/06/17 06:04 Dose: Not Given Tiotropium [place] (Spiriva -) 1 puff IH DAILY [facility] Last Admin: 07/06/17 10:57 Dose: 1 puff Valsartan (Diovan -) 160 mg PO DAILY [facility] Last Admin: 07/06/17 10:57 Dose: 160 mg - Objective Vital Signs: Vital Signs Temperature 97.3 F L 07/06/17 10:00 Pulse Rate 87 07/06/17 10:57 Respiratory Rate 20 07/06/17 10:00 Blood Pressure 138/75 07/06/17 10:00 O2 Sat by Pulse Oximetry (%) 98 07/05/17 21:00 Constitutional: Yes: No Distress Cardiovascular: Yes: Regular Rate and Rhythm, S1, S2 Respiratory: Yes: CTA Bilaterally Gastrointestinal: Yes: Normal Bowel Sounds, Soft. No: Tenderness Edema: Yes Edema: LLE: 1+, RLE: 1+ Integumentary: Yes: Other (erythema L back improved. No vesicles) Labs: CBC, BMP 07/04/17 06:00 07/04/17 06:00 INR, PTT INR 1.19 (0.82-1.09) H 06/22/17 10:13 Assessment/Plan ? HCAP COPD CHF L shoulder blade area pain / erythema ? early VZV no vesicular lesions noted Continue empiric zosyn Continue bronchodilators, prednisone, lasix Monitor for development of vesicular rash
--- NOTE | 2017-07-06 14:22 | PN ---
Progress Note, Physician Chief Complaint: patient just got back from [facility] recc:soft cohesive solid food, magic cup and ensure breathing much improved less tachypneic when talking - Current Medication List Current Medications: Active Medications Acetaminophen (Tylenol -) 1,000 mg PO Q8H PRN PRN Reason: PAIN SCALE 0-4 Last Admin: 07/04/17 14:01 Dose: 1,000 mg Arformoterol Tartrate (Brovana (Restricted To Pulmonology/Resp) -) 1 amp NEB RBID [facility] Last Admin: 07/06/17 08:07 Dose: 1 amp Aspirin (Asa -) 81 mg PO DAILY [facility] Last Admin: 07/06/17 10:57 Dose: 81 mg Dabigatran (Pradaxa -) 150 mg PO BID [facility] Last Admin: 07/06/17 10:58 Dose: 150 mg Digoxin (Lanoxin -) 0.125 mg PO DAILY [facility] Last Admin: 07/06/17 10:57 Dose: 0.125 mg Diltiazem HCl (Cardizem Cd -) 120 mg PO DAILY [facility] Last Admin: 07/06/17 10:57 Dose: 120 mg Docusate Sodium (Colace -) 300 mg PO HS [facility] Last Admin: 07/05/17 21:40 Dose: 300 mg Ergocalciferol (Drisdol -) 50,000 unit PO Tu@1000 [facility] Last Admin: 07/06/17 11:00 Dose: 50,000 unit Furosemide (Lasix -) 40 mg PO BID@0600,1400 [facility] Last Admin: 07/06/17 06:03 Dose: 40 mg Piperacillin Sod/Tazobactam (Sod 3.375 gm/ Dextrose) 50 mls @ 100 mls/hr IVPB Q8H-IV FRAN PRN Reason: Protocol Last Admin: 07/06/17 10:56 Dose: 100 mls/hr Insulin Aspart (Novolog Vial Sliding Scale -) 1 vial SQ ACHS [facility] PRN Reason: Protocol Last Admin: 07/06/17 11:59 Dose: 6 unit Insulin Detemir (Levemir Vial) 10 units SQ AM [facility] Last Admin: 07/06/17 06:03 Dose: Not Given Magnesium Hydroxide (Milk Of Magnesia -) 30 ml PO Q8H PRN PRN Reason: INDIGESTION Last Admin: 07/04/17 10:01 Dose: 30 ml Pantoprazole Sodium (Protonix -) 20 mg PO DAILY [facility] Last Admin: 07/06/17 10:57 Dose: 20 mg Polyethylene Glycol (Miralax (For Daily Use) -) 17 gm PO DAILY [facility] Last Admin: 07/06/17 10:58 Dose: Not Given Prednisone (Deltasone -) 30 mg PO DAILY [facility] Last Admin: 07/06/17 10:57 Dose: 30 mg Rosuvastatin Calcium (Crestor -) 20 mg PO HS [facility] Last Admin: 07/05/17 21:41 Dose: 20 mg Sitagliptin Phosphate (Januvia -) 50 mg PO DAILY@0700 [facility] Last Admin: 07/06/17 06:04 Dose: Not Given Tiotropium [place] (Spiriva -) 1 puff IH DAILY [facility] Last Admin: 07/06/17 10:57 Dose: 1 puff Valsartan (Diovan -) 160 mg PO DAILY [facility] Last Admin: 07/06/17 10:57 Dose: 160 mg - Objective Vital Signs: Vital Signs Temperature 97.3 F L 07/06/17 10:00 Pulse Rate 87 07/06/17 10:57 Respiratory Rate 20 07/06/17 10:00 Blood Pressure 138/75 07/06/17 10:00 O2 Sat by Pulse Oximetry (%) 98 07/05/17 21:00 Constitutional: Yes: Calm Cardiovascular: Yes: Pulse Irregular, S1, S2 Respiratory: Yes: On Nasal O2, Rhonchi (scatteered) Gastrointestinal: Yes: Normal Bowel Sounds, Soft Edema: No Neurological: Yes: Alert, Oriented Labs: CBC, BMP 07/04/17 06:00 07/04/17 06:00 INR, PTT INR 1.19 (0.82-1.09) H 06/22/17 10:13 Problem List - Problems (1) Atrial fibrillation Assessment/Plan: digoxin,rate control angel cut down on dose of cardizem from 240 to 120mg caridzem and pradaxa dig level ok Code(s): I48.91 - UNSPECIFIED ATRIAL FIBRILLATION Qualifiers: Atrial fibrillation type: chronic Qualified Code(s): I48.2 - Chronic atrial fibrillation (2) COPD (chronic obstructive pulmonary disease) with acute bronchitis Assessment/Plan: po prednisone tape to 20mg tmw on oxygen Code(s): J44.0 - CHRONIC OBSTRUCTIVE PULMON DISEASE W ACUTE LOWER RESP INFCT (3) Pneumonia Assessment/Plan: LLL-CAP repeat cxr restarted iv zosyn MBS done today diet adjsuted Code(s): J18.9 - PNEUMONIA, UNSPECIFIED ORGANISM (4) CAD S/P percutaneous coronary angioplasty Assessment/Plan: aspirin and statin ekg done no change from previous atypical chest pressure resolved chest pressure relieved with protonix Code(s): I25.10 - ATHSCL HEART DISEASE OF [place] CORONARY ARTERY W/O ANG PCTRS; Z98.61 - CORONARY ANGIOPLASTY STATUS (5) CHF (congestive heart failure) Assessment/Plan: iv lasix change to po bid for ankle edema BP better since meds have been adjusted will cut down on dose of cardizem and diovan Code(s): I50.9 - HEART FAILURE, UNSPECIFIED (6) Diabetes Assessment/Plan: hgba1c 7.9 bgm noted on levemir 10units medrol taper continue current insulin dose bgm will improve with medrol taper Code(s): E11.9 - TYPE 2 DIABETES MELLITUS WITHOUT COMPLICATIONS Qualifiers: Diabetes mellitus type: other specified (including YULISA) Diabetes mellitus intermediate manager insulin use: with chcf use Diabetes mellitus complication status: with unspecified complications Qualified Code(s): E13.8 - Other specified diabetes mellitus with unspecified complications
--- NOTE | 2017-07-06 14:24 | PN ---
Progress Note (short form) - Note Progress Note: Breathing appears overall improved. Less SOB and cough. Remains afebrile. Intake & Output 07/03/17 07/04/17 07/05/17 07/06/17 23:59 23:59 23:59 23:59 Intake Total 600 860 520 750 Balance 600 860 520 750 Weight 133 lb 3 oz 132 lb 3 oz 134 lb 9 oz 135 lb 0.6 oz Last Vital Signs Temp Pulse Resp BP Pulse Ox 97.3 F L 87 20 138/75 98 07/06/17 10:00 07/06/17 10:57 07/06/17 10:00 07/06/17 10:00 07/05/17 21:00 Active Medications Acetaminophen (Tylenol -) 1,000 mg PO Q8H PRN PRN Reason: PAIN SCALE 0-4 Last Admin: 07/04/17 14:01 Dose: 1,000 mg Arformoterol Tartrate (Brovana (Restricted To Pulmonology/Resp) -) 1 amp NEB RBID [facility] Last Admin: 07/06/17 08:07 Dose: 1 amp Aspirin (Asa -) 81 mg PO DAILY [facility] Last Admin: 07/06/17 10:57 Dose: 81 mg Dabigatran (Pradaxa -) 150 mg PO BID [facility] Last Admin: 07/06/17 10:58 Dose: 150 mg Digoxin (Lanoxin -) 0.125 mg PO DAILY [facility] Last Admin: 07/06/17 10:57 Dose: 0.125 mg Diltiazem HCl (Cardizem Cd -) 120 mg PO DAILY [facility] Last Admin: 07/06/17 10:57 Dose: 120 mg Docusate Sodium (Colace -) 300 mg PO HS [facility] Last Admin: 07/05/17 21:40 Dose: 300 mg Ergocalciferol (Drisdol -) 50,000 unit PO Tu@1000 [facility] Last Admin: 07/06/17 11:00 Dose: 50,000 unit Furosemide (Lasix -) 40 mg PO BID@0600,1400 [facility] Last Admin: 07/06/17 06:03 Dose: 40 mg Piperacillin Sod/Tazobactam (Sod 3.375 gm/ Dextrose) 50 mls @ 100 mls/hr IVPB Q8H-IV FRAN PRN Reason: Protocol Last Admin: 07/06/17 10:56 Dose: 100 mls/hr Insulin Aspart (Novolog Vial Sliding Scale -) 1 vial SQ ACHS [facility] PRN Reason: Protocol Last Admin: 07/06/17 11:59 Dose: 6 unit Insulin Detemir (Levemir Vial) 10 units SQ AM [facility] Last Admin: 07/06/17 06:03 Dose: Not Given Magnesium Hydroxide (Milk Of Magnesia -) 30 ml PO Q8H PRN PRN Reason: INDIGESTION Last Admin: 07/04/17 10:01 Dose: 30 ml Pantoprazole Sodium (Protonix -) 20 mg PO DAILY [facility] Last Admin: 07/06/17 10:57 Dose: 20 mg Polyethylene Glycol (Miralax (For Daily Use) -) 17 gm PO DAILY [facility] Last Admin: 07/06/17 10:58 Dose: Not Given Prednisone (Deltasone -) 20 mg PO DAILY [facility] Rosuvastatin Calcium (Crestor -) 20 mg PO HS [facility] Last Admin: 07/05/17 21:41 Dose: 20 mg Sitagliptin Phosphate (Januvia -) 50 mg PO DAILY@0700 [facility] Last Admin: 07/06/17 06:04 Dose: Not Given Tiotropium [place] (Spiriva -) 1 puff IH DAILY [facility] Last Admin: 07/06/17 10:57 Dose: 1 puff Valsartan (Diovan -) 160 mg PO DAILY [facility] Last Admin: 07/06/17 10:57 Dose: 160 mg Gen: Less tachypneic Heart: RRR Lung: less rhonchi, wheezes Abd: soft, nontender Ext: no edema Laboratory Results - last 24 hr 07/05/17 07/05/17 07/06/17 16:43 21:33 05:54 POC Glucometer 103 390 62 07/06/17 11:25 POC Glucometer 251 Problem List - Problems (1) COPD exacerbation Code(s): J44.1 - CHRONIC OBSTRUCTIVE PULMONARY DISEASE W (ACUTE) EXACERBATION (2) Pneumonia Code(s): J18.9 - PNEUMONIA, UNSPECIFIED ORGANISM (3) CAD S/P percutaneous coronary angioplasty Code(s): I25.10 - ATHSCL HEART DISEASE OF [place] CORONARY ARTERY W/O ANG PCTRS; Z98.61 - CORONARY ANGIOPLASTY STATUS (4) Dyslipidemia Code(s): E78.5 - HYPERLIPIDEMIA, UNSPECIFIED (5) HTN (hypertension) Code(s): I10 - ESSENTIAL (PRIMARY) HYPERTENSION Qualifiers: Hypertension type: essential hypertension Qualified Code(s): I10 - Essential (primary) hypertension (6) Mitral valve regurgitation Code(s): I34.0 - NONRHEUMATIC MITRAL (VALVE) INSUFFICIENCY Qualifiers: Cardiac valve disease etiology: etiology unspecified Qualified Code(s): I34.0 - Nonrheumatic mitral (valve) insufficiency IMP: Pneumonia Acute COPD Exacerbation Likely component of chronic ILD (Has CT from 2012 revealing mild changes) Chronic Hypoxic Respiratory Failure LV Diastolic Dysfunction Atrial Fibrillation Mitral Regurgitation CAD HTN DM Hyperlipidemia - continue antibiotics per ID - Prednisone - inhaled bronchodilators - O2 to keep SpO2 >90% - rate control - AC Dr Lubin
[2017-07-06] MEDS: AMOX TR/POT CLAV 500MG/125MG TABLETS (FP) PO SCH (17:16)
[2017-07-06] MEDS: ROSUVASTATIN CA 20 MG TABLET (FP) PO SCH (22:15)
[2017-07-06] MEDS: DOCUSATE SODIUM 100 MG CAPSULE (FP) PO SCH (22:16)
[2017-07-07] MEDS: FUROSEMIDE 40 MG TABLET (FP) PO SCH ×2 (06:30→13:27)
[2017-07-07] MEDS: sitaGLIPtin PHOSPHATE 50 MG TABLET PO SCH (06:30)
[2017-07-07] MEDS: INSULIN SLIDING SCALE (NOVOLOG) 1 VIAL SQ SCH ×2 (06:30→11:54)
[2017-07-07] MEDS: INSULIN (LEVEMIR) 100 UNITS/ML UNITS SQ SCH (06:32)
[2017-07-07] MEDS ORDERED: INSULIN (NOVOLOG) ASPART 100 UNITS/ML 10ML VIAL ONE (06:34)
[2017-07-07] MEDS: ARFORMOTEROL TARTRATE 15 MCG/2 ML VIAL NEB SCH (07:40)
--- NOTE | 2017-07-07 08:49 | DS ---
Physical Examination Vital Signs: Vital Signs Temperature 97.7 F 07/07/17 06:16 Pulse Rate 76 07/07/17 06:16 Respiratory Rate 20 07/07/17 06:16 Blood Pressure 139/60 07/07/17 06:16 O2 Sat by Pulse Oximetry (%) 95 07/06/17 21:00 Labs: CBC, BMP 07/04/17 06:00 07/04/17 06:00 Discharge Summary Reason For Visit: PNEUMONIA Current Active Problems Atrial fibrillation (Acute) COPD (chronic obstructive pulmonary disease) with acute bronchitis (Acute) COPD exacerbation (Acute) Fever (Acute) Pneumonia (Acute) Hospital Course: 82yo female with h/o HTN, hyperlipidemia, DM, COPD, chronic hypoxic respiratory failure on home O2, CAD s/p stents, atrial fibrillation, LV diastolic dysfunction, severe mitral regurgitation who was admitted with worsening shortness of breath x "few days." Denies chest pain or palpitations. No fevers, chills or sweats but febrile to 102 on presentation. Reports her son experiencing a "croup cough" for the past 10 days. States her legs were more swollen but was told by her PMD to increase her diuretic dose with improvement in leg swelling but not her shortness of breath. +nonproductive cough and wheezing. Uses her Advair intermittently, but does use her nebulizers. She is a long time smoker, smoked for 60 years, quit 4 years ago. - Past Medical History Cardiovascular: Yes: AFIB, CAD (S/P STENTING), CHF, HTN, Hyperlipdemia Pulmonary: Yes: COPD, O2 Dependent Musculoskeletal: Yes: Chronic low back pain Endocrine: Yes: Diabetes Mellitus imaging: CHest CT moderate sever interstitial lung disease consolidation left lung, and cardiomegaly and pleural effusion hospital course: admitted for LLL- cAP got 7 days of rocephin and doxycycline--zosyn chf/ankle edema iv lasix bid now change to po lasix bid afib on pradaxa, rate control with cardizem copd exacerbation iv steroids now change to po prednsione constipation mineral oil enema and miralax to go snf - Problems (1) Atrial fibrillation Assessment/Plan: digoxin,rate control angel cut down on dose of cardizem from 240 to 120mg caridzem and pradaxa dig level ok Code(s): I48.91 - UNSPECIFIED ATRIAL FIBRILLATION Qualifiers: Atrial fibrillation type: chronic Qualified Code(s): I48.2 - Chronic atrial fibrillation (2) COPD (chronic obstructive pulmonary disease) with acute bronchitis Assessment/Plan: po prednisone tape to 20mg tmw on oxygen Code(s): J44.0 - CHRONIC OBSTRUCTIVE PULMON DISEASE W ACUTE LOWER RESP INFCT (3) Pneumonia Assessment/Plan: LLL-CAP repeat cxr--nad MBS done diet adjsuted Code(s): J18.9 - PNEUMONIA, UNSPECIFIED ORGANISM (4) CAD S/P percutaneous coronary angioplasty Assessment/Plan: aspirin and statin ekg done no change from previous atypical chest pressure resolved chest pressure relieved with protonix Code(s): I25.10 - ATHSCL HEART DISEASE OF [place] CORONARY ARTERY W/O ANG PCTRS; Z98.61 - CORONARY ANGIOPLASTY STATUS (5) CHF (congestive heart failure) Assessment/Plan: iv lasix change to po bid for ankle edema BP better since meds have been adjusted will cut down on dose of cardizem and diovan Code(s): I50.9 - HEART FAILURE, UNSPECIFIED (6) Diabetes Assessment/Plan: hgba1c 7.9 bgm noted on levemir 10units medrol taper continue current insulin dose bgm will improve with medrol taper Code(s): E11.9 - TYPE 2 DIABETES MELLITUS WITHOUT COMPLICATIONS Qualifiers: Diabetes mellitus type: other specified (including YULISA) Diabetes mellitus senior care insulin use: with senior care use Diabetes mellitus complication status: with unspecified complications Qualified Code(s): E13.8 - Other specified diabetes mellitus with unspecified complications Condition: Improved - Instructions Diet, Activity, Other Instructions: check BMP and cbc in one week check 25 hydroxy vitamin D level in one week prednsione taper 40mg po daily for 3 days then 30mg po daily for 2 days then 20mg po daily for 2 days 10mg po daily for 2 days then stop Nasal O2 to keep SpO2>90% Referrals: Aman Russell MD [Primary Care Provider] - Disposition: INTERMEDIATE FACILITY - Home Medications Comprehensive Discharge Medication List: Ambulatory Orders Rosuvastatin [Crestor -] 20 mg PO DAILY 11/15/16 Albuterol 2.5/Ipratropium 0.5 [Duoneb -] 1 amp NEB QIDR amp 11/19/16 Aspirin [ASA -] 81 mg PO DAILY #30 tab.chew 11/19/16 Cholecalciferol (Vitamin D3) [Optimal D3] 50,000 unit PO WEEKLY 06/22/17 Dabigatran Etexilate Mesylate [Pradaxa -] 150 mg PO BID 06/22/17 Sitagliptin Phosphate [Januvia -] 50 mg PO DAILY@0700 06/22/17 Albuterol Sulfate 0.042% [Ventolin 0.042% (Half-Strength) -] 1 amp NEB Q4H PRN amp 06/29/17 Alprazolam [Xanax] 0.25 mg PO BID #10 tablet MDD 2 06/29/17 Dabigatran Etexilate Mesylate [Pradaxa -] 150 mg PO BID cap 06/29/17 Digoxin [Lanoxin -] 0.125 mg PO DAILY tablet 06/29/17 Insulin Sliding Scale [Novolog Vial Sliding Scale -] 1 vial SQ ACHS units 06/29 Pantoprazole Sodium [Protonix -] 20 mg PO DAILY tablet.ec 06/29/17 Acetaminophen [Tylenol .Extra-Strength -] 1,000 mg PO Q8H PRN tablet 07/07/17 Amox-Tr/K Cl [Augmentin 500-125mg Tablet -] 1 tab PO BID@0800,1730 tablet 07/07 Diltiazem Cd [Cardizem Cd -] 120 mg PO DAILY cap.cd.24h 07/07/17 Docusate Sodium [Colace -] 300 mg PO HS capsule 07/07/17 Furosemide [Lasix -] 40 mg PO BID@0600,1400 tablet 07/07/17 Insulin (Levemir) [Levemir Vial] 10 units SQ AM ml 07/07/17 Magnesium Hydrox 2400MG/30Ml [Milk of Magnesia -] 30 ml PO Q8H PRN cup Polyethylene Glycol 3350 [Miralax 119 gm Btl -] 17 gm PO DAILY bottle 07/07/17 Tiotropium [place] [Spiriva] 1 puff IH DAILY cap 07/07/17 Valsartan [Diovan] 160 mg PO DAILY tablet 07/07/17 predniSONE [Deltasone -] 30 mg PO DAILY tablet 07/07/17
[2017-07-07] MEDS ORDERED: predniSONE 20 MG TABLET (UD) PO SCH (09:00)
[2017-07-07] MEDS ORDERED: PT OWN MED DRAWER 7, Y5N ONE (09:04)
[2017-07-07] MEDS: ASPIRIN 81 MG CHEWABLE TABLETS PO SCH (09:10)
[2017-07-07] MEDS: TIOTROPIUM BROMIDE 18 MCG CAPSULES IH SCH (09:10)
[2017-07-07] MEDS: VALSARTAN 160 MG TABLET (UD) PO SCH (09:10)
[2017-07-07] MEDS: PANTOPRAZOLE 20 MG TABLET (FP) PO SCH (09:10)
[2017-07-07] MEDS: DIGOXIN 0.125 MG TABLET (FP) PO SCH (09:10)
[2017-07-07] MEDS: DABIGATRAN ETEXILATE MESYLATE 150 MG CAPSULE PO SCH (09:11)
[2017-07-07] MEDS: AMOX TR/POT CLAV 500MG/125MG TABLETS (FP) PO SCH (09:12)
[2017-07-07] MEDS: POLYETHYLENE GLYCOL 3350 119 GM BTL PO SCH (09:12)
[2017-07-07 11:26] VITALS: TEMP 98.1
--- NOTE | 2017-07-07 13:38 | PN ---
Progress Note, [employer] - Note Progress Note: Selected Entries 07/06/17 07/06/17 07/06/17 02:05 06:00 10:00 Breakfast Lunch Temperature 97.4 F L 98.7 F 97.3 F L 07/06/17 07/06/17 07/06/17 10:21 14:53 14:54 Breakfast 50% Lunch 50% Temperature 97 F L 07/06/17 07/06/17 07/07/17 18:41 22:00 06:16 Breakfast Lunch Temperature 97.5 F L 98.2 F 97.7 F 07/07/17 07/07/17 10:59 11:00 Breakfast 75% Lunch Temperature 98.1 F Pending D/C to [facility]. Per MBS, consider soft, chpped foods such as egg salad, tuna, and PO supplements.
[2017-07-07 13:59] VITALS: BP 128/54; PULSE 78
== END 2017-07-07 16:55 | DRG 193 ==
LOC: JER 09:48 → JERBED 12:48 → J7W 15:41
PROVIDERS: ADMIT Family Medicine; ATTEND Family Medicine
DX: J18.9 Pneumonia, unspecified organism (principal); I50.31 Acute diastolic (congestive) heart failure; J44.1 Chronic obstructive pulmonary disease with (acute) exacerbation; J96.11 Chronic respiratory failure with hypoxia; J44.0 Chronic obstructive pulmonary disease with (acute) lower respiratory infection; I25.10 Atherosclerotic heart disease of native coronary artery without angina pectoris; Z98.61 Coronary angioplasty status; E78.5 Hyperlipidemia, unspecified; I11.0 Hypertensive heart disease with heart failure; I34.0 Nonrheumatic mitral (valve) insufficiency; Z87.891 Personal history of nicotine dependence; I48.2 Chronic atrial fibrillation; E87.70 Fluid overload, unspecified; E10.9 Type 1 diabetes mellitus without complications; E10.65 Type 1 diabetes mellitus with hyperglycemia
CPT/HCPCS: 36415; 71045-TC-FY; 71046-TC-FY; 71250-TC; 74230-TC-FY; 80053; 80061; 80162; 81003; 81015; 82550; 82803; 82947; 82962; 83036; 83605; 83721; 83880; 84484; 85025; 85610; 85730; 87040; 87077; 87086; 87420; 87804; 87899; 92611-GN; 93005; 93010; 94010; 94640; 97116-GP; 97161-GP; 99285-25; J0131; J7030; J7620

== ENCOUNTER 2019-02-08 17:43 | Inpatient (IN) | payer OTHER ==
--- NOTE | 2019-02-08 17:56 | PDOC ---
Documentation entered by Dada Kline SCRIBE, acting as scribe for Muna Dan DO. Muna Dan DO: This documentation has been prepared by the Eliud petersen Daniel, SCRIBE, under my direction and personally reviewed by me in its entirety. I confirm that the documentation accurately reflects all work, treatment, procedures, and medical decision making performed by me. Attending Attestation - Resident Resident Name: Scooby Flores - ED Attending Attestation I have performed the following: I have examined & evaluated the patient, The case was reviewed & discussed with the resident, I agree w/resident's findings & plan, Exceptions are as noted - HPI HPI: 02/08/19 18:51 The patient is an 83 year old female with a past medical history of COPD (3L home O2), CHF, CAD, HTN, mitral valve regurgitation, diabetes, and afib (pradaxa ) here today for evaluation of a syncopal episode. The patient reports that she was getting up from a supine position when she syncopized and was witnessed by family. As per family, the patient was sitting up when she suddenly slumped over and was passed out for approximately 20 seconds. Family states that the patient had a tremor and woke up back to her baseline. Patient denies any tongue bite and currently states that she has some lightheadedness. Family states that the patient has had increased shortness of breath for the past 6 weeks and has been going back and forth between 3 and 4 L of O2 at home. Family also notes that the patients blood sugar was 400 when EMS arrived. Patient denies headache. Denies fever, chills. Denies chest pain. Denies nausea , vomiting, diarrhea, abdominal pain. Allergies: NKA PCP: Aman Russell - Physicial Exam PE: 02/08/19 18:51 Constitutional: Awake, alert, oriented. No acute distress. Head: Normocephalic. Atraumatic Eyes: PERRL. EOMI. Conjunctivae are not pale. ENT: Mucous membranes are moist and intact. Posterior pharynx without exudates or erythema. Uvula midline. Neck: Supple. Full ROM. No lymphadenopathy. Cardiovascular: +irregularly irregular. Regular rate. S1, S2 regular. Distal pulses are 2+ and symmetric. Pulmonary/Chest: +diminished lung sounds bilaterally. +tachypnea. + conversational dyspnea. +pursed lip breathing. No wheezing, rales or rhonchi. Abdominal: Soft and non-distended. There is no tenderness. No rebound, guarding or rigidity. No organomegaly. No palpable masses. Good bowel sounds. Back: No CVA tenderness. Musculoskeletal: No edema. No cyanosis. No clubbing. Full range of motion in all extremities. Nocalf tenderness. Radial/pedal pulses are intact and 2+ bilaterally Skin: +left lower extremity small hematoma and ecchymosis. Skin is warm and dry. No petechiae. No purpura. Neurological: Alert and oriented to person, place, and time. Cranial nerves II -XII are grossly intact. Normal speech. Strength is grossly symmetric. No sensory deficits. Psychiatric: Good eye contact. Normal interaction, affect and behavior. - Medical Decision Making 02/08/19 17:55 I, Dr. Muna Dan, DO, attest that this document has been prepared under my direction and personally reviewed by me in its entirety. I further attest, that it accurately reflects all work, treatment, procedures and medical decision -making performed by me. 02/08/19 18:45 a/p: 83yo female with increasing sob x 6 weeks and a syncopal episode today -syncope lasted 15 seconds -denies cp/palpitations -denies seizure activity -pt with pursed lip breathing and tachypnea -will send labs, vbg, on home o2 but increased to 4L recently from 3L at baseline -will obtain cxr -will monitor and reassess 02/08/19 18:54 b lines on ultrasound - will give lasix and nebs suspect both copd and chf pulse ox 88-90 on 4L nc pt will need admission for syncope/copd/chf exacerbation 02/08/19 19:05 cxr shows cardiomegaly, cephalization 02/08/19 19:44 bnp >5000 trop mildly elevated microblog sent to kourtney, EBONYD Dr. Russell 02/08/19 20:05 case discussed with MITESH gonsalez who is covering [facility] service Heart Score/ECG Review - ECG Intrepretation Comment:: 02/08/19 17:55 afib at 68, low voltage, nl axis, pvc, poor r wave progression, t wave inversions laterally which are unchanged from prior ekg 07/03/17, abnl ekg
[2019-02-08] MEDS ORDERED: methylPREDNISolone NA SUCC 125 MG/2 ML VIAL IVPB ONE (18:27)
[2019-02-08] MEDS ORDERED: ALBUTEROL SO4 2.5/IPRATROPIUM 0.5 INH SOL 3 ML VIAL.NEB. NEB ONE ×3 (18:27→22:46)
--- NOTE | 2019-02-08 18:39 | PDOC ---
History of Present Illness - General Chief Complaint: Shortness of Breath Stated Complaint: SYNCOPE Time Seen by Provider: 02/08/19 17:52 History Source: Patient, Family Exam Limitations: No Limitations - History of Present Illness Initial Comments: 02/09/19 11:53 HPI: 83F PMH CHF, AF on pradaxa, CAD, HTN, NIDDM, COPD on Home O2 (3.5L) BIBEMS after witnessed syncopal episode at home while sitting up from couch. pt denies preceeding symptoms. Denies chest pain, palpitations, nausea, vomiting, numbness , tingling, weakness. endorses current lightheadedness. Denies changes in appetite and poor eating habits. No head strike or fall. No loss of continence. Endorses changing O2 requirements in past few days but no cough, wheezing, fevers. PMH as above; lumped on LLE w/ neg duplex study 1 day ago PCP: Dr. Yvonne MARSH + 60 yr smoking hx Past History - Past Medical History Allergies/Adverse Reactions: Allergies Allergy/AdvReac Type Severity Reaction Status Date / Time No Known Allergies Allergy Verified 02/08/19 18:16 Home Medications: Ambulatory Orders Rosuvastatin [Crestor -] 20 mg PO DAILY 11/15/16 Albuterol 2.5/Ipratropium 0.5 [Duoneb -] 1 amp NEB QIDR amp 11/19/16 Aspirin [ASA -] 81 mg PO DAILY #30 tab.chew 11/19/16 Cholecalciferol (Vitamin D3) [Optimal D3] 50,000 unit PO WEEKLY 06/22/17 Dabigatran Etexilate Mesylate [Pradaxa -] 75 mg PO BID 06/22/17 Sitagliptin Phosphate [Januvia -] 50 mg PO DAILY@0700 06/22/17 Albuterol Sulfate 0.042% [Ventolin 0.042% (Half-Strength) -] 1 amp NEB Q4H PRN amp 06/29/17 Insulin Sliding Scale [Novolog Vial Sliding Scale -] 1 vial SQ ACHS units 06/29 Acetaminophen [Tylenol .Extra-Strength -] 1,000 mg PO Q8H PRN tablet 07/07/17 Diltiazem Cd [Cardizem Cd -] 120 mg PO DAILY cap.cd.24h 07/07/17 Insulin (Levemir) [Levemir Vial] 10 units SQ AM ml 07/07/17 Tiotropium [place] [Spiriva] 1 puff IH DAILY cap 07/07/17 Digoxin [Lanoxin -] 0.125 mg PO HS 02/08/19 Furosemide [Lasix -] 60 mg PO DAILY 02/08/19 Glyburide 5 mg PO BID 02/08/19 Linaclotide [Linzess] 72 mcg PO DAILY 02/08/19 Anemia: No Asthma: No Cancer: No Cardiac Disorders: Yes (s/p stents x 2, aortic valve leaking) CVA: No COPD: Yes CHF: Yes Dementia: No Diabetes: Yes GI Disorders: No Disorders: No HTN: Yes Hypercholesterolemia: Yes Kidney Stones: No Liver Disease: No Psychiatric Problems: No Seizures: No Thyroid Disease: No Lung CA: No - Surgical History Abdominal Surgery: No Appendectomy: No Cardiac Surgery: Yes (stents) Cholecystectomy: No Lung Surgery: No Neurologic Surgery: No Orthopedic Surgery: Yes (Left wrist) - Immunization History Immunization Up to Date: Yes - Psycho Social/Smoking Cessation Hx Smoking Status: No Smoking History: Former smoker Have you smoked in the past 12 months: No Number of Cigarettes Smoked Daily: 0 If you are a former smoker, when did you quit?: 2 years ago Cigars Per Day: 0 Information on smoking cessation initiated: No 'Breaking Loose' booklet given: 06/22/17 Hx Alcohol Use: No Drug/Substance Use Hx: No Substance Use Type: None Hx Substance Use Treatment: No Review of Systems - Review of Systems Able to Perform ROS?: Yes Comments:: 02/09/19 11:53 ROS: CONSTITUTIONAL: Denies F / C HEENT: Endorses lightheadedness. Endorses 3 weeks of right eye blurry vision being seen by PCP. Denies headache, dizziness RESP: Endorses recent change in O2 requirements. Denies cough CARD: Denies chest pain, palpitations GI: Denies N / V / D, abdominal pain, bloody stool, inability to tolerate PO : Denies dysuria, hematuria. Endorses longstanding frequency s/p NEURO: Denies numbness, tingling, weakness Is the patient limited Maltese proficient: No *Physical Exam - Vital Signs Last Vital Signs Temp Pulse Resp BP Pulse Ox 97.3 F L 67 24 H 157/65 91 L 02/08/19 18:16 02/08/19 18:16 02/08/19 18:16 02/08/19 18:16 02/08/19 18:16 - Physical Exam 02/09/19 11:53 PE: GEN: NAD, comfortable. AAOx3 HEENT: NC/AT, CN II-XII grossly intact, EOMI, PERRLA. No facial asymmetry. Moist mucous membranes. Normal voice. Supple neck w/ FROM. CV: S1/S2, RRR, no m/r/g LUNG: Normal respiratory effort on NC. Mild bibasilar crackles w/o wheezes. GI: soft, ndnt, +BS, no guarding, no rebound. No masses. EXTREMITIES: No LE edema. No obvious deformities of all extremities. SKIN: warm, dry, normal turgor PSYCH: normal mood and affect NEURO: Moving all extremities well. FROM UE and LE b/l. 5/5 bicep/tricep/charge accounts audit clerk strength b/l. 5/5 UE strength b/l. 5/5 LE strength b/l. Sensation symmetric and intact throughout. ED Treatment Course - LABORATORY CBC & Chemistry Diagram: 02/09/19 05:43 02/09/19 05:43 - RADIOLOGY Radiology Studies Ordered: Category Date Time Status CHEST X-RAY PORTABLE* [RAD] Stat Radiology 02/08/19 18:21 Ordered Medical Decision Making - Medical Decision Making 02/08/19 18:30 MDM: 83F BIBEMS after witnessed syncopal episode w/o head strike. Crackles on exam. Neurologically intact. Likely COPD vs CHF exacerbation ?causing syncope? - CBC, CMP, CARDIAC, BNP - UA - CXR - EKG - DUONEBS, SOLUMEDROL, LASIX - Admit - signed out to Dr. Shea Discharge - Discharge Information Problems reviewed: Yes Clinical Impression/Diagnosis: Syncope and collapse CHF exacerbation Qualifiers: Heart failure type: unspecified Qualified Code(s): I50.9 - Heart failure, unspecified Condition: Stable - Follow up/Referral - Patient Discharge Instructions - Post Discharge Activity
[2019-02-08] MEDS ORDERED: FUROSEMIDE 40 MG/4 ML INJECTABLE VIAL IVPUSH ONE (18:50)
[2019-02-08 18:53] LABS: BASO % 0.6 % (0-2.0); EOS % 0.9 % (0-4.5); HEMATOCRIT 34.5 % (32.4-45.2); HEMOGLOBIN 11.5 GM/dL (10.7-15.3); LYMPH % 8.5 % (8-40); MCH 30.8 pg (25.7-33.7); MCHC 33.2 g/dl (32.0-36.0); MEAN CELL VOLUME 92.6 fl (80-96); MEAN PLT VOLUME 10.2 fl (7.5-11.1); MONO % 4.9 % (3.8-10.2); NEUT % 85.1 % (42.8-82.8); PLATELET COUNT 159 K/MM3 (134-434); RBC 3.72 M/mm3 (3.60-5.2); RDW 16.4 % (11.6-15.6); VENOUS PC02 54.4 mmHg (38-52); VENOUS PH 7.41 (7.31-7.41); WHITE BLOOD COUNT 6.6 K/mm3 (4.0-10.0)
[2019-02-08 18:57] LABS: VENOUS PO2 < 49 mmHg (28-48)
[2019-02-08] MEDS ORDERED: FUROSEMIDE 40 MG/4 ML INJECTABLE VIAL ONE (18:59)
[2019-02-08] MEDS ORDERED: methylPREDNISolone NA SUCC 125 MG/2 ML VIAL ONE (19:00)
--- NOTE | 2019-02-08 19:13 | PDOC ---
*Physical Exam - Vital Signs Last Vital Signs Temp Pulse Resp BP Pulse Ox 97.3 F L 67 24 H 157/65 91 L 02/08/19 18:16 02/08/19 18:16 02/08/19 18:16 02/08/19 18:16 02/08/19 18:16 - Physical Exam General Appearance: Yes: Nourished, Appropriately Dressed. No: Apparent Distress HEENT: positive: EOMI, KIM, Normal ENT Inspection, Normal Voice, Symmetrical, Pharynx Normal, Hearing Grossly Normal. negative: Scleral Icterus (R), Scleral Icterus (L) Neck: positive: Trachea midline, Normal Thyroid, Supple. negative: Tender, Lymphadenopathy (R), Lymphadenopathy (L) Respiratory/Chest: positive: Normal Breath Sounds, Crackles. negative: Chest Tender, Respiratory Distress, Accessory Muscle Use, Labored Respiration, Rales, Rhonchi, Stridor, Wheezing, Hyperresonant Cardiovascular: positive: Regular Rhythm, Regular Rate, Edema. negative: Murmur ED Treatment Course - LABORATORY CBC & Chemistry Diagram: 02/08/19 18:40 02/08/19 18:40 - ADDITIONAL ORDERS Additional order review: Laboratory Results 02/08/19 18:40 VBG pH 7.41 POC VBG pCO2 54.4 H POC VBG pO2 < 49 H VBG HCO3 33.4 H VBG O2 Sat (Lucian) 46.2 L VBG Base Excess 7.7 H 02/08/19 18:40 RBC 3.72 MCV 92.6 MCHC 33.2 RDW 16.4 H MPV 10.2 Neutrophils % 85.1 H Lymphocytes % 8.5 D Monocytes % 4.9 Eosinophils % 0.9 D Basophils % 0.6 D Medical Decision Making - Medical Decision Making 02/08/19 19:07 Signed out to me by Dr. Flores. Patient is an 83F with PMH CHF, Afib, CAD, HTN, COPD on home O2 presenting with syncopal episode. Patient had witnessed syncopal episode, no head injury or loss of continence. No N/V, no chest pain, no neuro deficits. Has had increased home O2 requirement, no fever/cough. On exam has bilateral crackles, L shoulder limited ROM 2/2 avascular necrosis. US shows B-lines both lungs. CXR: Marked cardiomegaly, rule out pericardial effusion. Significant mitral annulus calcification. Calcified aortic arch. Dilated left atrium. Rule out cardiomyopathy. No acute congestive change or pleural effusions are seen, degenerative changes in the shoulder with no evidence of pneumonia. These findings have progressed since older imaging June 2017 and appear cardiac in origin echocardiography should be helpful. Impression: Significant cardiomegaly, rule out pericardial effusion, progression since 2018, no signs of acute CHF or pneumonia ECG shows afib with PVCs, HR 68, QRS 110, QTc 450, no evidence of ischemic changes or TWI, grossly unchanged from prior from June 2017. Plan: [] admit [] labs [X] CXR [X] lasix [X] steroids/Duonebs 02/08/19 19:55 Labs notable for: - BNP 5600 - trop 0.07 Patient requires overnight observation for cardiac causes of syncope, as well as treatment of CHF exacerbation. Discussed case with waldemar Qureshi for admission to Med Surg under Dr. Xiong. Discharge - Discharge Information Problems reviewed: Yes Clinical Impression/Diagnosis: Syncope and collapse CHF exacerbation Qualifiers: Heart failure type: unspecified Qualified Code(s): I50.9 - Heart failure, unspecified Condition: Stable - Admission Yes - Follow up/Referral - Patient Discharge Instructions - Post Discharge Activity
[2019-02-08 19:31] LABS: ALBUMIN 3.4 g/dl (3.4-5.0); BILIRUBIN,TOTAL 0.6 mg/dL (0.2-1); BLOOD UREA NITROGEN 25.7 mg/dL (7-18); CALCIUM 8.6 mg/dL (8.5-10.1); CREATININE 1.3 mg/dL (0.55-1.3); POTASSIUM 3.7 mmol/L (3.5-5.1); TOT PROT 6.5 g/dl (6.4-8.2)
[2019-02-08 19:32] LABS: N-TERMINAL BNP 5677.2 pg/ml (5-450)
[2019-02-08 20:19] LABS: EPI CELLS 0.7 /HPF (0-5/HPF); HYALINE CASTS 3 /lpf (0-8); PH,URINE 6.5 (5.0-8.0); URINE APPEARANCE CLEAR; URINE BACTERIA 2.4 /hpf (NEGATIVE); URINE BILIRUBIN NEGATIVE (NEGATIVE); URINE COLOR YELLOW; URINE GLUCOSE (UA) 1+ (NEGATIVE); URINE KETONE NEGATIVE (NEGATIVE); URINE LEUK ESTERASE NEGATIVE (NEGATIVE); URINE NITRITE NEGATIVE (NEGATIVE); URINE PROTEIN 1+ (NEGATIVE); URINE RBC 1 /hpf (0-4); URINE UROBILINOGEN 0.2 mg/dL (0.2-1.0); URINE WBC 2 /hpf (0-5)
[2019-02-08] MEDS: ALBUTEROL SO4 2.5/IPRATROPIUM 0.5 INH SOL 3 ML VIAL.NEB. NEB PRN (22:46)
--- NOTE | 2019-02-09 04:04 | HP ---
Admitting History and Physical - Primary Care Physician PCP: Aman Russell - Admission Chief Complaint: Syncope History of Present Illness: This is a 83 year old woman with a past medical history of COPD (3L home O2), CHF, CAD, HTN, Mitral Valve Regurgitation, Diabetes, and Afib(on pradaxa). Who presents to the ED for evaluation of a syncopal episode x today. 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 The patient reports that she was getting up from a supine position when she felt lightheaded and syncopized, it was witnessed by family. Per the ED record: As per the family, the patient was sitting up when she suddenly slumped over and was passed out for approximately 20 seconds. Family states that the patient had a tremor and woke up back to her baseline. Patient denies any tongue bite and currently states that she has some lightheadedness. Family states that the patient has had increased shortness of breath for the past 6 weeks and has been going back and forth between 3 and 4 L of O2 at home. Family also notes that the patients blood sugar was 400 when EMS arrived. Patient denies headache. Denies fever, chills. Denies chest pain. Denies nausea , vomiting, diarrhea, abdominal pain. History Source: Patient, Family Member Limitations to Obtaining History: No Limitations - Past Medical History Cardiovascular: Yes: AFIB, CAD (S/P STENTING), CHF, HTN, Hyperlipdemia Pulmonary: Yes: COPD, O2 Dependent Musculoskeletal: Yes: Chronic low back pain Endocrine: Yes: Diabetes Mellitus - Smoking History Smoking history: Former smoker Have you smoked in the past 12 months: No Aproximately how many cigarettes per day: 0 If you are a former smoker, when did you quit?: 2 years ago - Alcohol/Substance Use Hx Alcohol Use: No History of Substance Use: reports: None - Social History Usual Living Arrangement: Yes: With Child ADL: Family Assistance (PRODUCT SAFETY OFFICER) History of Recent Travel: No Home Medications - Allergies Allergies/Adverse Reactions: Allergies Allergy/AdvReac Type Severity Reaction Status Date / Time No Known Allergies Allergy Verified 02/08/19 18:16 - Home Medications Home Medications: Ambulatory Orders Rosuvastatin [Crestor -] 20 mg PO DAILY 11/15/16 Albuterol 2.5/Ipratropium 0.5 [Duoneb -] 1 amp NEB QIDR amp 11/19/16 Aspirin [ASA -] 81 mg PO DAILY #30 tab.chew 11/19/16 Cholecalciferol (Vitamin D3) [Optimal D3] 50,000 unit PO WEEKLY 06/22/17 Dabigatran Etexilate Mesylate [Pradaxa -] 75 mg PO BID 06/22/17 Sitagliptin Phosphate [Januvia -] 50 mg PO DAILY@0700 06/22/17 Albuterol Sulfate 0.042% [Ventolin 0.042% (Half-Strength) -] 1 amp NEB Q4H PRN amp 06/29/17 Insulin Sliding Scale [Novolog Vial Sliding Scale -] 1 vial SQ ACHS units 06/29 Acetaminophen [Tylenol .Extra-Strength -] 1,000 mg PO Q8H PRN tablet 07/07/17 Diltiazem Cd [Cardizem Cd -] 120 mg PO DAILY cap.cd.24h 07/07/17 Insulin (Levemir) [Levemir Vial] 10 units SQ AM ml 07/07/17 Tiotropium [place] [Spiriva] 1 puff IH DAILY cap 07/07/17 Digoxin [Lanoxin -] 0.125 mg PO HS 02/08/19 Furosemide [Lasix -] 60 mg PO DAILY 02/08/19 Glyburide 5 mg PO BID 02/08/19 Linaclotide [Linzess] 72 mcg PO DAILY 02/08/19 Family Medical History Family History: Unable to Obtain Review of Systems - Review of Systems Constitutional: reports: Lethargy Eyes: reports: No Symptoms HENT: reports: No Symptoms Neck: reports: No Symptoms Cardiovascular: reports: Shortness of Breath Respiratory: reports: SOB, SOB on Exertion Gastrointestinal: reports: No Symptoms Genitourinary: reports: No Symptoms Breasts: reports: No Symptoms Reported Musculoskeletal: reports: No Symptoms Integumentary: reports: No Symptoms Neurological: reports: Dizziness, Syncope, Unsteady Gait, Weakness Endocrine: reports: No Symptoms Hematology/Lymphatic: reports: No Symptoms Psychiatric: reports: No Symptoms Pain Intensity: 0 Physical Examination Vital Signs: Vital Signs Temperature 97.3 F L 02/08/19 19:34 Pulse Rate 76 02/09/19 03:55 Respiratory Rate 18 02/09/19 03:55 Blood Pressure 178/86 H 12/12/19 03:55 O2 Sat by Pulse Oximetry (%) 95 02/09/19 03:55 Constitutional: Yes: Well Nourished, Mild Distress Eyes: Yes: WNL, Conjunctiva Clear, EOM Intact, PERRL HENT: Yes: WNL, Atraumatic, Normocephalic Neck: Yes: WNL, Supple, Trachea Midline Cardiovascular: Yes: Pulse Irregular, Murmur, S1, S2 Respiratory: Yes: Cough, Diminished, On Nasal O2, Rhonchi, SOB, SOB on Exertion , Wheezes, Other (+purse lip breathing) Gastrointestinal: Yes: WNL, Normal Bowel Sounds, Soft ...Rectal Exam: Yes: Deferred Renal/: Yes: WNL Breast(s): Yes: WNL Musculoskeletal: Yes: WNL Extremities: Yes: WNL Edema: No Peripheral Pulses WNL: Yes Integumentary: Yes: Bruising (ecchymotic bruising toanterior LLE) Neurological: Yes: WNL, Alert, Oriented ...Motor Strength: WNL Psychiatric: Yes: WNL, Alert, Oriented Labs: CBC, BMP 02/08/19 18:40 02/08/19 18:40 Laboratory Results - last 24 hr 02/08/19 02/08/19 02/08/19 18:40 18:40 18:40 WBC 6.6 RBC 3.72 Hgb 11.5 Hct 34.5 MCV 92.6 MCH 30.8 MCHC 33.2 RDW 16.4 H Plt Count 159 D MPV 10.2 Absolute Neuts (auto) 5.7 Neutrophils % 85.1 H Lymphocytes % 8.5 D Monocytes % 4.9 Eosinophils % 0.9 D Basophils % 0.6 D Nucleated RBC % 0 VBG pH POC VBG pCO2 POC VBG pO2 VBG HCO3 VBG O2 Sat (Lucian) VBG Base Excess Sodium 138 Potassium 3.7 Chloride 98 Carbon Dioxide 35 H Anion Gap 6 L BUN 25.7 H Creatinine 1.3 Est GFR (CKD-EPI)AfAm 43.32 Est GFR (CKD-EPI)NonAf 37.38 Random Glucose 374 H Calcium 8.6 Total Bilirubin 0.6 AST 16 ALT 18 Alkaline Phosphatase 64 Creatine Kinase Cancelled 47 Troponin I Cancelled 0.07 H B-Natriuretic Peptide 5677.2 H Total Protein 6.5 Albumin 3.4 Urine Color Urine Appearance Urine pH Ur Specific [place] Urine Protein Urine Glucose (UA) Urine Ketones Urine Blood Urine Nitrite Urine Bilirubin Urine Urobilinogen Ur Leukocyte Esterase Urine WBC (Auto) Urine RBC (Auto) Urine Casts (Auto) U Epithel Cells (Auto) Urine Bacteria (Auto) 02/08/19 02/08/19 02/09/19 18:40 19:30 01:04 WBC RBC Hgb Hct MCV MCH MCHC RDW Plt Count MPV Absolute Neuts (auto) Neutrophils % Lymphocytes % Monocytes % Eosinophils % Basophils % Nucleated RBC % VBG pH 7.41 POC VBG pCO2 54.4 H POC VBG pO2 < 49 H VBG HCO3 33.4 H VBG O2 Sat (Lucian) 46.2 L VBG Base Excess 7.7 H Sodium Potassium Chloride Carbon Dioxide Anion Gap BUN Creatinine Est GFR (CKD-EPI)AfAm Est GFR (CKD-EPI)NonAf Random Glucose Calcium Total Bilirubin AST ALT Alkaline Phosphatase Creatine Kinase Troponin I 0.08 H B-Natriuretic Peptide Total Protein Albumin Urine Color Yellow Urine Appearance Clear Urine pH 6.5 D Ur Specific [place] 1.012 Urine Protein 1+ H Urine Glucose (UA) 1+ H Urine Ketones Negative Urine Blood Negative Urine Nitrite Negative Urine Bilirubin Negative Urine Urobilinogen 0.2 Ur Leukocyte Esterase Negative Urine WBC (Auto) 2 Urine RBC (Auto) 1 Urine Casts (Auto) 3 U Epithel Cells (Auto) 0.7 Urine Bacteria (Auto) 2.4 Intake & Output 02/06/19 02/07/19 02/08/19 02/09/19 23:59 23:59 23:59 23:59 Weight 56 kg Current Medications Generic Name Dose Route Start Last Admin Trade Name Freq PRN Reason Stop Dose Admin Albuterol/Ipratropium 1 amp 02/08/19 22:44 02/08/19 22:46 Duoneb - NEB 1 amp Q6H PRN Administration SHORTNESS OF BREATH Aspirin 81 mg 02/09/19 10:00 Asa - PO DAILY [facility] Dabigatran 75 mg 02/08/19 23:00 02/09/19 00:00 Pradaxa - PO 75 mg BID FRAN Administration Digoxin 0.125 mg 02/09/19 22:00 Lanoxin - PO HS FRAN Diltiazem HCl 120 mg 02/09/19 10:00 Cardizem Cd - PO DAILY FRAN Furosemide 40 mg 02/09/19 10:00 Lasix Injection - IVPUSH DAILY [facility] Glyburide 5 mg 02/09/19 07:00 Diabeta - PO BIDAC FRAN Non-Formulary Medication 72 mcg 02/09/19 10:00 Linaclotide [Linzess] PO DAILY [facility] Non-Formulary Medication 1 puff 02/09/19 10:00 Tiotropium [place] [Spiriva] IH DAILY [facility] Rosuvastatin Calcium 20 mg 02/09/19 22:00 Crestor - PO HS FRAN Sitagliptin Phosphate 50 mg 02/09/19 07:00 Januvia - PO DAILY@0700 [facility] Imaging - Results Chest X-ray: Report Reviewed, Image Reviewed EKG: Image Reviewed Problem List - Problems (1) Syncope and collapse Assessment/Plan: Likely secondary to arrhythmia Cardiac monitoring Serial Enzymes Appreciate Cardiology consult Echo- r/o pericardial effusion Neurochecks Monitor CBC, BMP Fall Precautions Code(s): R55 - SYNCOPE AND COLLAPSE (2) Respiratory failure Assessment/Plan: O2 Duonebs prn Monitor vitals, spo2 Code(s): J96.90 - RESPIRATORY FAILURE, UNSP, UNSP W HYPOXIA OR HYPERCAPNIA Qualifiers: Chronicity: acute on chronic Respiratory failure complication: hypoxia and hypercapnia Qualified Code(s): J96.21 - Acute and chronic respiratory failure with hypoxia; J96.22 - Acute and chronic respiratory failure with hypercapnia (3) CHF (congestive heart failure) Assessment/Plan: Chest Xray-reviewed Lasix given in ED, will continue Strict INOs Daily weights Appreciate Cardiology consult Monitor BMP Cardiac monitoring Code(s): I50.9 - HEART FAILURE, UNSPECIFIED (4) COPD (chronic obstructive pulmonary disease) Assessment/Plan: Appreciate Pulmonology consult Duonebs O2 Monitor vital, Spo2 Code(s): J44.9 - CHRONIC OBSTRUCTIVE PULMONARY DISEASE, UNSPECIFIED Qualifiers: COPD type: COPD with acute exacerbation Qualified Code(s): J44.1 - Chronic obstructive pulmonary disease with (acute) exacerbation (5) Diabetes mellitus type 2, uncontrolled Assessment/Plan: Likely secondary to patient's eating habits Counseled on decreasing carbohydrates- white rice, bread, pasta, cakes Consider RD consult BGMs ISS Continue Januvia, Glyburide HgbA1c in am Monitor BGM Code(s): E11.65 - TYPE 2 DIABETES MELLITUS WITH HYPERGLYCEMIA (6) Atrial fibrillation Assessment/Plan: EKG-reviewed [id number] Continue Pradaxa, Digoxin,Cardizem Dig level in am Code(s): I48.91 - UNSPECIFIED ATRIAL FIBRILLATION Qualifiers: Atrial fibrillation type: chronic (7) Dyslipidemia Assessment/Plan: Continue Crestor Monitor LFTs Code(s): E78.5 - HYPERLIPIDEMIA, UNSPECIFIED (8) HTN (hypertension) Code(s): I10 - ESSENTIAL (PRIMARY) HYPERTENSION Qualifiers: Hypertension type: essential hypertension Qualified Code(s): I10 - Essential (primary) hypertension (9) Mitral valve regurgitation Assessment/Plan: Continue Pradaxa Code(s): I34.0 - NONRHEUMATIC MITRAL (VALVE) INSUFFICIENCY Qualifiers: Cardiac valve disease etiology: etiology unspecified Qualified Code(s): I34.0 - Nonrheumatic mitral (valve) insufficiency Assessment/Plan This is a 83 year old woman with a past medical history of COPD (3L home O2), CHF, CAD, HTN, Mitral Valve Regurgitation, Diabetes, Afib(on pradaxa). Admitted for Syncope, CHF Exacerbation, COPD Exacerbation for further evaluation of their emergent condition. Plan: See Problem List FEN Fluid Restriction 1L Replete lytes prn Low Na, Diabetic Diet DVT ppx OOB SCDs Continue Pradaxa Dispo: Requires Inpatient Care Visit type - Emergency Visit Emergency Visit: Yes ED Registration Date: 02/08/19 Care time: The patient presented to the Emergency Department on the above date and was hospitalized for further evaluation of their emergent condition. - New Patient This patient is new to me today: Yes Date on this admission: 02/08/19 - Critical Care Critical Care patient: No
[2019-02-09] MEDS ORDERED: methylPREDNISolone NA SUCC 40 MG/1 ML VIAL ONE (05:25)
[2019-02-09] MEDS: methylPREDNISolone NA SUCC 40 MG/1 ML VIAL IVPUSH SCH ×3 (05:34→17:49)
[2019-02-09 06:39] LABS: EOS % 0.1 % (0-4.5); HEMATOCRIT 34.7 % (32.4-45.2); HEMOGLOBIN 11.7 GM/dL (10.7-15.3); LYMPH % 9.5 % (8-40); MCH 30.9 pg (25.7-33.7); MCHC 33.7 g/dl (32.0-36.0); MEAN CELL VOLUME 91.7 fl (80-96); MEAN PLT VOLUME 10.3 fl (7.5-11.1); MONO % 1.1 % (3.8-10.2); NEUT % 89.3 % (42.8-82.8); PLATELET COUNT 154 K/MM3 (134-434); RBC 3.78 M/mm3 (3.60-5.2); RDW 16.4 % (11.6-15.6); WHITE BLOOD COUNT 4.3 K/mm3 (4.0-10.0)
[2019-02-09] MEDS: glyBURIDE 5 MG TABLET (UD) PO SCH ×2 (06:52→18:44)
[2019-02-09] MEDS: INSULIN SLIDING SCALE (NOVOLOG) 1 VIAL SQ SCH ×3 (07:00→17:49)
[2019-02-09 07:51] LABS: CALCIUM 8.8 mg/dL (8.5-10.1); CREATININE 1.5 mg/dL (0.55-1.3); MAGNESIUM 2.2 mg/dL (1.8-2.4); PHOSPHOROUS 3.6 mg/dL (2.5-4.9); POTASSIUM 4.1 mmol/L (3.5-5.1)
[2019-02-09] MEDS ORDERED: PATIENT'S OWN MEDICATION (NON-FORMULARY) (Linaclotide [Linzess] 72 MCG) PO SCH (10:00)
[2019-02-09] MEDS ORDERED: PT OWN MED DRAWER 7, Y5N ONE (10:07)
[2019-02-09] MEDS: FUROSEMIDE 40 MG/4 ML INJECTABLE VIAL IVPUSH SCH (10:08)
[2019-02-09] MEDS: DABIGATRAN ETEXILATE MESYLATE 75 MG CAPSULE PO SCH ×2 (10:08)
[2019-02-09] MEDS: ASPIRIN 81 MG CHEWABLE TABLETS PO SCH (10:08)
[2019-02-09] MEDS: TIOTROPIUM BROMIDE 2.5 MCG (SPIRIVA) RESPIMAT INHALER IH SCH (10:41)
--- NOTE | 2019-02-09 11:03 | PN ---
Progress Note, Physician Chief Complaint: patient seen and examined came in for syncopal episode per daughter the patient been getting more short of breath - Current Medication List Current Medications: Active Medications Albuterol/Ipratropium (Duoneb -) 1 amp NEB Q6H PRN PRN Reason: SHORTNESS OF BREATH Last Admin: 02/08/19 22:46 Dose: 1 amp Aspirin (Asa -) 81 mg PO DAILY [facility] Last Admin: 02/09/19 10:08 Dose: 81 mg Dabigatran (Pradaxa -) 75 mg PO BID [facility] Last Admin: 02/09/19 10:08 Dose: 75 mg Digoxin (Lanoxin -) 0.125 mg PO [facility] Diltiazem HCl (Cardizem Cd -) 120 mg PO DAILY [facility] Last Admin: 02/09/19 10:08 Dose: 120 mg Furosemide (Lasix Injection -) 40 mg IVPUSH DAILY [facility] Last Admin: 02/09/19 10:08 Dose: 40 mg Glyburide (Diabeta -) 5 mg PO BIDAC [facility] Last Admin: 02/09/19 06:52 Dose: 5 mg Insulin Aspart (Novolog Vial Sliding Scale -) 1 vial SQ [facility]; Protocol Last Admin: 02/09/19 07:00 Dose: 12 unit Methylprednisolone Sodium Succinate (Solu-Medrol -) 40 mg IVPUSH Q8H-IV [facility] Last Admin: 02/09/19 10:08 Dose: 40 mg Non-Formulary Medication (Linaclotide [Linzess]) 72 mcg PO DAILY [facility] Rosuvastatin Calcium (Crestor -) 10 mg PO [facility] Sitagliptin Phosphate (Januvia -) 25 mg PO DAILY@0700 [facility] Last Admin: 02/09/19 06:52 Dose: 25 mg Tiotropium [place] (Spiriva Respimat) 2 puff IH DAILY [facility] Last Admin: 02/09/19 10:41 Dose: 2 puff - Objective Vital Signs: Vital Signs Temperature 97.8 F 02/09/19 10:54 Pulse Rate 72 02/09/19 10:54 Respiratory Rate 16 02/09/19 10:54 Blood Pressure 172/78 H 02/09/19 10:54 O2 Sat by Pulse Oximetry (%) 93 L 02/09/19 10:54 Constitutional: Yes: Calm Cardiovascular: Yes: Regular Rate and Rhythm, Murmur, S1, S2 Respiratory: Yes: Diminished Gastrointestinal: Yes: Normal Bowel Sounds, Soft Edema: No Neurological: Yes: Alert, Oriented Labs: CBC, BMP 02/09/19 05:43 02/09/19 05:43 Problem List - Problems (1) Syncope and collapse Assessment/Plan: telemetry echo look for pericardial effusion carotid doppler cardiology eval Code(s): R55 - SYNCOPE AND COLLAPSE (2) Atrial fibrillation Assessment/Plan: pradaxa and diltizem Code(s): I48.91 - UNSPECIFIED ATRIAL FIBRILLATION Qualifiers: Atrial fibrillation type: chronic (3) CHF (congestive heart failure) Assessment/Plan: iv lasix garcia cath monitor i/o daily weights echo Code(s): I50.9 - HEART FAILURE, UNSPECIFIED (4) COPD (chronic obstructive pulmonary disease) Assessment/Plan: pulm bronchodilators Code(s): J44.9 - CHRONIC OBSTRUCTIVE PULMONARY DISEASE, UNSPECIFIED Qualifiers: COPD type: COPD with acute exacerbation Qualified Code(s): J44.1 - Chronic obstructive pulmonary disease with (acute) exacerbation
--- NOTE | 2019-02-09 12:07 | CONSULT ---
Consult - text type - Consultation Consultation Note: Renal consult for MURALI This is a 83 year old woman with history of COPD, CHF, CAD, Hypertension, MVR, DM, Afib on A/C who presented withy syncope from home and noted to have Cr of 1.5. Seen and examined in the ER. Awake and alert, she offers no acute complaints. She reports getting out the chair/bed to get her check book and passing out. She denies any palpitations, chest pain, fever or chills. She denies any history of CKD. She reports good oral intake. No N/V/D. No flank pain. Denies any NSAID use. No recent contrast exposure. Was on diuretics at home. She denies any shortness of breath, cough or orthopnea. PMhx: as above Allergies: NKDA Family hx: NC Social Hx: Former smoker, No ETOH/Drugs. ROS: as per HPI, all other pertinent ros negative Home Medications Medication Instructions Recorded Rosuvastatin [Crestor -] 20 mg PO DAILY 11/15/16 Albuterol 2.5/Ipratropium 0.5 1 amp NEB QIDR amp 11/19/16 [Duoneb -] Aspirin [ASA -] 81 mg PO DAILY #30 tab.chew 11/19/16 Cholecalciferol (Vitamin D3) 50,000 unit PO WEEKLY 06/22/17 [Optimal D3] Dabigatran Etexilate Mesylate 75 mg PO BID 06/22/17 [Pradaxa -] Sitagliptin Phosphate [Januvia -] 50 mg PO DAILY@0700 06/22/17 Albuterol Sulfate 0.042% [Ventolin 1 amp NEB Q4H PRN amp 06/29/17 0.042% (Half-Strength) -] Insulin Sliding Scale [Novolog 1 vial SQ ACHS units 06/29/17 Vial Sliding Scale -] Acetaminophen [Tylenol 1,000 mg PO Q8H PRN tablet 07/07/17 .Extra-Strength -] Diltiazem Cd [Cardizem Cd -] 120 mg PO DAILY cap.cd.24h 07/07/17 Insulin (Levemir) [Levemir Vial] 10 units SQ AM ml 07/07/17 Tiotropium [place] [Spiriva] 1 puff IH DAILY cap 07/07/17 Digoxin [Lanoxin -] 0.125 mg PO HS 02/08/19 Furosemide [Lasix -] 60 mg PO DAILY 02/08/19 Glyburide 5 mg PO BID 02/08/19 Linaclotide [Linzess] 72 mcg PO DAILY 02/08/19 Vital Signs Temperature 97.8 F 02/09/19 10:54 Pulse Rate 72 02/09/19 10:54 Respiratory Rate 16 02/09/19 10:54 Blood Pressure 172/78 H 02/09/19 10:54 O2 Sat by Pulse Oximetry (%) 93 L 02/09/19 10:54 Intake & Output 02/06/19 02/07/19 02/08/19 02/09/19 23:59 23:59 23:59 23:59 Weight 56 kg NAD awake and alert neck supple no JVD RRR, No M/R CTA, no rales soft NT/ND no LE edema, clubbing or cyanosis CBC, BMP 02/09/19 05:43 02/09/19 05:43 Laboratory Tests 02/08/19 02/09/19 18:40 05:43 BUN 25.7 H 29.0 H Creatinine 1.3 1.5 H Current Medications Albuterol/Ipratropium (Duoneb -) 1 amp NEB Q6H PRN PRN Reason: SHORTNESS OF BREATH Last Admin: 02/08/19 22:46 Dose: 1 amp Aspirin (Asa -) 81 mg PO DAILY [facility] Last Admin: 02/09/19 10:08 Dose: 81 mg Dabigatran (Pradaxa -) 75 mg PO BID [facility] Last Admin: 02/09/19 10:08 Dose: 75 mg Digoxin (Lanoxin -) 0.125 mg PO [facility] Diltiazem HCl (Cardizem Cd -) 120 mg PO DAILY [facility] Last Admin: 02/09/19 10:08 Dose: 120 mg Furosemide (Lasix Injection -) 40 mg IVPUSH DAILY [facility] Last Admin: 02/09/19 10:08 Dose: 40 mg Glyburide (Diabeta -) 5 mg PO BIDAC [facility] Last Admin: 02/09/19 06:52 Dose: 5 mg Insulin Aspart (Novolog Vial Sliding Scale -) 1 vial SQ [facility]; Protocol Last Admin: 02/09/19 11:23 Dose: 12 unit Methylprednisolone Sodium Succinate (Solu-Medrol -) 40 mg IVPUSH Q8H-IV [facility] Last Admin: 02/09/19 10:08 Dose: 40 mg Non-Formulary Medication (Linaclotide [Linzess]) 72 mcg PO DAILY [facility] Rosuvastatin Calcium (Crestor -) 10 mg PO HS [facility] Sitagliptin Phosphate (Januvia -) 25 mg PO DAILY@0700 [facility] Last Admin: 02/09/19 06:52 Dose: 25 mg Tiotropium [place] (Spiriva Respimat) 2 puff IH DAILY [facility] Last Admin: 02/09/19 10:41 Dose: 2 puff 83 year old woman with history of COPD, CHF, CAD, Hypertension, MVR, DM, Afib on A/C who presented withy syncope from home and noted to have Cr of 1.5. 1. MURALI 2. Syncope 3. COPD 4. CAD/CHF (preserved LVEF) 5. Hypertension 6. Elevated serum bicarb due to metabolic compensation for respiratory acidosis vs. contraction alkalosis 7. DM type 2 suspect that renal insufficiency due to intravascular volume depletion (high BUN /Cr ratio) would withhold diuretics for now as pt does not have any edema or effusions ( received dose of IV Lasix today) (ECHO shows preserved LVEF) Check orthostatic vital signs Trend renal function and electrolyte daily Would avoid NSAIDs, IV contrast, Fleet enemas Thank you Will follow Luis Orlando DO
--- NOTE | 2019-02-09 12:29 | CON.PULM ---
Consult Consult Specialty:: PULM/CCM Referred by:: BRANDON Reason for Consultation:: SOB - History of Present Illness Chief Complaint: SOB History of Present Illness: 83 F, O2 dependent COPD (3L NC) due to previous smoking history, CHF, CAD, HTN, Mitral Valve Regurgitation, Diabetes, and Afib on pradaxa. Admitted via the ER due to an apparent syncopal episode after eating [place] food. She went to stand after eating and felt lightheaded and the "passed". It was apparently witnessed by her family. She has also been experiencing a progressive increase in shortness of breath for the past 6 weeks. She has required intermittent increases in her O2 to 4 L NC. No travel history or sick contacts. No fever or chills. No hemoptysis or night sweats. CXR: gross cardiomegly / mild pulmonary vascular congestion +/- chronic change - History Source History Provided By: Patient, Medical Record Limitations to Obtaining History: Poor Historian - Past Medical History Cardio/Vascular: Yes: AFIB, CAD (S/P STENTING), CHF, HTN, Hyperlipdemia Pulmonary: Yes: Bronchitis, COPD, O2 Dependent, Pneumonia. 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) History of Recent Travel: No Home Medications - Allergies Allergies/Adverse Reactions: Allergies Allergy/AdvReac Type Severity Reaction Status Date / Time No Known Allergies Allergy Verified 02/08/19 18:16 - Home Medications Home Medications: Ambulatory Orders Rosuvastatin [Crestor -] 20 mg PO DAILY 11/15/16 Albuterol 2.5/Ipratropium 0.5 [Duoneb -] 1 amp NEB QIDR amp 11/19/16 Aspirin [ASA -] 81 mg PO DAILY #30 tab.chew 11/19/16 Cholecalciferol (Vitamin D3) [Optimal D3] 50,000 unit PO WEEKLY 06/22/17 Dabigatran Etexilate Mesylate [Pradaxa -] 75 mg PO BID 06/22/17 Sitagliptin Phosphate [Januvia -] 50 mg PO DAILY@0700 06/22/17 Albuterol Sulfate 0.042% [Ventolin 0.042% (Half-Strength) -] 1 amp NEB Q4H PRN amp 06/29/17 Insulin Sliding Scale [Novolog Vial Sliding Scale -] 1 vial SQ ACHS units 06/29 Acetaminophen [Tylenol .Extra-Strength -] 1,000 mg PO Q8H PRN tablet 07/07/17 Diltiazem Cd [Cardizem Cd -] 120 mg PO DAILY cap.cd.24h 07/07/17 Insulin (Levemir) [Levemir Vial] 10 units SQ AM ml 07/07/17 Tiotropium [place] [Spiriva] 1 puff IH DAILY cap 07/07/17 Digoxin [Lanoxin -] 0.125 mg PO HS 02/08/19 Furosemide [Lasix -] 60 mg PO DAILY 02/08/19 Glyburide 5 mg PO BID 02/08/19 Linaclotide [Linzess] 72 mcg PO DAILY 02/08/19 Review of Systems - Review of Systems Constitutional: reports: Malaise. denies: Chills, Fever, Night Sweats Eyes: reports: No Symptoms HENT: reports: No Symptoms Neck: reports: No Symptoms Cardiovascular: reports: Shortness of Breath. denies: Chest Pain, Edema, Palpitations Respiratory: reports: Cough, SOB, SOB on Exertion. denies: Hemoptysis, Orthopnea, PND, Snoring, Wheezing Gastrointestinal: reports: No Symptoms Genitourinary: reports: No Symptoms Breasts: reports: No Symptoms Reported Musculoskeletal: reports: No Symptoms Integumentary: reports: No Symptoms Neurological: reports: No Symptoms Endocrine: reports: No Symptoms Hematology/Lymphatic: reports: No Symptoms Psychiatric: reports: No Symptoms Physical Exam Vital Sings: Vital Signs Temperature 97.8 F 02/09/19 10:54 Pulse Rate 72 02/09/19 10:54 Respiratory Rate 16 02/09/19 10:54 Blood Pressure 172/78 H 02/09/19 10:54 O2 Sat by Pulse Oximetry (%) 93 L 02/09/19 10:54 Constitutional: Yes: No Distress, Thin Eyes: Yes: Conjunctiva Clear, EOM Intact HENT: Yes: Atraumatic, Normocephalic Neck: Yes: Supple, Trachea Midline Cardiovascular: Yes: Pulse Irregular, S1, S2. No: Gallop Respiratory: Yes: Cough, Diminished, Rhonchi, SOB, SOB on Exertion, Wheezes. No : Accessory Muscle Use, Rales, Stridor, Tachypnea ...Inspection: Yes: WNL ...Clubbing: No Gastrointestinal: Yes: Normal Bowel Sounds, Soft Renal/: Yes: WNL Musculoskeletal: Yes: WNL Extremities: Yes: WNL Edema: No Peripheral Pulses WNL: Yes Integumentary: Yes: WNL Neurological: Yes: Alert, Oriented ...Motor Strength: WNL Psychiatric: Yes: Alert, Oriented Labs: CBC, BMP 02/09/19 05:43 02/09/19 05:43 Imaging - Results Chest X-ray: Report Reviewed, Image Reviewed Problem List - Problems (1) Cardiomegaly Code(s): I51.7 - CARDIOMEGALY (2) CHF exacerbation Code(s): I50.9 - HEART FAILURE, UNSPECIFIED Qualifiers: Heart failure type: unspecified Qualified Code(s): I50.9 - Heart failure, unspecified (3) Diabetes mellitus type 2, uncontrolled Code(s): E11.65 - TYPE 2 DIABETES MELLITUS WITH HYPERGLYCEMIA (4) Syncope and collapse Code(s): R55 - SYNCOPE AND COLLAPSE (5) Atrial fibrillation Code(s): I48.91 - UNSPECIFIED ATRIAL FIBRILLATION Qualifiers: Atrial fibrillation type: chronic (6) CAD S/P percutaneous coronary angioplasty Code(s): I25.10 - ATHSCL HEART DISEASE OF [place] CORONARY ARTERY W/O ANG PCTRS; Z98.61 - CORONARY ANGIOPLASTY STATUS (7) CHF (congestive heart failure) Code(s): I50.9 - HEART FAILURE, UNSPECIFIED (8) COPD (chronic obstructive pulmonary disease) Code(s): J44.9 - CHRONIC OBSTRUCTIVE PULMONARY DISEASE, UNSPECIFIED Qualifiers: COPD type: COPD with acute exacerbation Qualified Code(s): J44.1 - Chronic obstructive pulmonary disease with (acute) exacerbation (9) Dyslipidemia Code(s): E78.5 - HYPERLIPIDEMIA, UNSPECIFIED (10) HTN (hypertension) Code(s): I10 - ESSENTIAL (PRIMARY) HYPERTENSION Qualifiers: Hypertension type: essential hypertension Qualified Code(s): I10 - Essential (primary) hypertension (11) Mitral valve regurgitation Code(s): I34.0 - NONRHEUMATIC MITRAL (VALVE) INSUFFICIENCY Qualifiers: Cardiac valve disease etiology: etiology unspecified Qualified Code(s): I34.0 - Nonrheumatic mitral (valve) insufficiency (12) Acute exacerbation of chronic obstructive pulmonary disease (COPD) Code(s): J44.1 - CHRONIC OBSTRUCTIVE PULMONARY DISEASE W (ACUTE) EXACERBATION Assessment/Plan IMP: R/O Pericardial effusion ECHO IV Medrol BD TX as ordered Supplemental O2 as needed to maintain saturation Lasix No smoking Would monitor off ABX Daily weights Will follow Thank you Dr Lubin
--- NOTE | 2019-02-09 13:56 | ECHO ---
Name: CHRISTEN, MALOU Exam:Adult Echocardiogram Study Date: 02/09/2019 09:06 AM Age: 83 yrs Height: 62 in Weight: 123 lb BSA: 1.6 m2 MMode/2D Measurements & Calculations IVSd: 1.4 cm Ao root diam: 2.8 cm LVIDd: 3.8 cm LA dimension: 4.5 cm LVIDs: 2.5 cm LVPWd: 1.5 cm LVPWs: 1.5 cm EDV(Teich): 60.0 ml ESV(Teich): 22.7 ml LVOT diam: 1.5 cm LAV (MOD-bp): 138.0 ml RV S Martin: 12.0 cm/sec Doppler Measurements & Calculations MVA(VTI): 0.88 cm2 MV E max martin: 138.7 cm/sec MV V2 max: 262.5 cm/sec MV A max martin: 54.3 cm/sec MV max P.6 mmHg MV E/A: 2.6 MV V2 mean: 124.8 cm/sec MV dec time: 0.26 sec MV mean P.8 mmHg MV V2 VTI: 52.9 cm Ao V2 max: 256.2 cm/sec LV V1 max P.9 mmHg Ao max P.3 mmHg LV V1 mean P.1 mmHg Ao V2 mean: 160.0 cm/sec LV V1 max: 131.5 cm/sec Ao mean P.3 mmHg LV V1 mean: 107.2 cm/sec Ao V2 VTI: 44.8 cm LV V1 VTI: 27.2 cm KAYLEIGH(I,D): 1.0 cm2 KAYLEIGH(V,D): 0.88 cm2 MR max martin: 604.0 cm/sec SV(LVOT): 46.6 ml MR max P.0 mmHg TR max martin: 458.3 cm/sec PA V2 max: 122.5 cm/sec TR max P.3 mmHg PA max P.0 mmHg RVSP(TR): 94.3 mmHg PI end-d martin: 186.8 cm/sec Med Peak E' Martin: 2.3 cm/sec Med E/e': 59.3 Lat Peak E' Martin: 4.1 cm/sec Lat E/e': 33.9 RAP systole: 10.0 mmHg Procedure A complete two-dimensional transthoracic echocardiogram was performed (2D, M-mode, Doppler and color flow Doppler). Left Ventricle There is mild concentric left ventricular hypertrophy. The left ventricular ejection fraction is norm al. Ejection Fraction = 60-65%. The left ventricular wall motion is normal. Right Ventricle The right ventricle is normal in size and function. Atria The left atrium is moderately dilated. Right atrial size is normal. Mitral Valve There is mild mitral annular calcification. There is trace mitral regurgitation. Tricuspid Valve There is mild tricuspid regurgitation. There is severe pulmonary hypertension. Aortic Valve Mild to moderate valvular aortic stenosis. No aortic regurgitation is present. Pulmonic Valve There is no pulmonic valvular regurgitation. Great Vessels The aortic root is normal size. Pericardium/Pleura There is no pericardial effusion. Interpretation Summary The left ventricular ejection fraction is normal. There is mild concentric left ventricular hypertrophy. The left atrium is moderately dilated. The right ventricle is normal in size and function. There is trace mitral regurgitation. There is mild tricuspid regurgitation. There is severe pulmonary hypertension. Mild to moderate valvular aortic stenosis. MD Fransico Angel 02/09/2019 01:56 PM
--- NOTE | 2019-02-09 14:44 | EKG ---
Test Reason : Blood Pressure : / mmHG Vent. Rate : 068 BPM Atrial Rate : 062 BPM P-R Int : 000 ms QRS Dur : 110 ms QT Int : 424 ms P-R-T Axes : 000 084 252 degrees QTc Int : 450 ms ATRIAL FIBRILLATION WITH PREMATURE VENTRICULAR OR ABERRANTLY CONDUCTED COMPLEXES LOW VOLTAGE QRS CANNOT RULE OUT INFERIOR INFARCT (CITED ON OR BEFORE 30-AUG-2016) ANTEROLATERAL INFARCT (CITED ON OR BEFORE 30-AUG-2016) ABNORMAL ECG WHEN COMPARED WITH ECG OF 03-JUL-2017 12:59, QUESTIONABLE CHANGE IN INITIAL FORCES OF INFERIOR LEADS Confirmed by JENNIFER PILLAI MD ([id number]) on 02/09/2019 2:43:56 PM Referred By: Confirmed By:JENNIFER PILLAI MD
--- NOTE | 2019-02-09 15:27 | CON.CARD ---
Consult Consult Specialty:: Cardiology Referred by:: Alessio Xiong Reason for Consultation:: Syncope - History of Present Illness Chief Complaint: Syncope History of Present Illness: 83 year old woman with a pmhx of COPD on home O2, chronic diastolic CHF, CAD, htn, MR, Dm, and afib on pradaxa presenting with syncope. Was home and ate kiny[place] food and than while getting up from supine position she felt lightheaded and passed out. Out for 20 seconds and had a tremor when she awoke. Blood sugar was 400 when EMS arrived. Patient denies headache. Denies fever, chills. Denies chest pain. Denies nausea , vomiting, diarrhea, abdominal pain. CXR no chf BNP elevated Carotids L ICA 50-69% Echocardiogram normal LVEF, trace MR, severe pulmonary htn EKG: afib with anterolateral infarct pattern - Past Medical History Cardio/Vascular: Yes: AFIB, CAD (S/P STENTING), CHF, HTN, Hyperlipdemia Pulmonary: Yes: Bronchitis, COPD, O2 Dependent, Pneumonia. 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) History of Recent Travel: No Home Medications - Allergies Allergies/Adverse Reactions: Allergies Allergy/AdvReac Type Severity Reaction Status Date / Time No Known Allergies Allergy Verified 02/08/19 18:16 - Home Medications Home Medications: Ambulatory Orders Rosuvastatin [Crestor -] 20 mg PO DAILY 11/15/16 Albuterol 2.5/Ipratropium 0.5 [Duoneb -] 1 amp NEB QIDR amp 11/19/16 Aspirin [ASA -] 81 mg PO DAILY #30 tab.chew 11/19/16 Cholecalciferol (Vitamin D3) [Optimal D3] 50,000 unit PO WEEKLY 06/22/17 Dabigatran Etexilate Mesylate [Pradaxa -] 75 mg PO BID 06/22/17 Sitagliptin Phosphate [Januvia -] 50 mg PO DAILY@0700 06/22/17 Albuterol Sulfate 0.042% [Ventolin 0.042% (Half-Strength) -] 1 amp NEB Q4H PRN amp 06/29/17 Insulin Sliding Scale [Novolog Vial Sliding Scale -] 1 vial SQ ACHS units 06/29 Acetaminophen [Tylenol .Extra-Strength -] 1,000 mg PO Q8H PRN tablet 07/07/17 Diltiazem Cd [Cardizem Cd -] 120 mg PO DAILY cap.cd.24h 07/07/17 Insulin (Levemir) [Levemir Vial] 10 units SQ AM ml 07/07/17 Tiotropium [place] [Spiriva] 1 puff IH DAILY cap 07/07/17 Digoxin [Lanoxin -] 0.125 mg PO HS 02/08/19 Furosemide [Lasix -] 60 mg PO DAILY 02/08/19 Glyburide 5 mg PO BID 02/08/19 Linaclotide [Linzess] 72 mcg PO DAILY 02/08/19 Vital Signs: Vital Signs Temperature 98.2 F 02/09/19 14:37 Pulse Rate 68 02/09/19 14:37 Respiratory Rate 20 02/09/19 14:37 Blood Pressure 149/62 02/09/19 14:37 O2 Sat by Pulse Oximetry (%) 95 02/09/19 14:37 Constitutional: Yes: No Distress Neck: Yes: Supple Respiratory: Yes: CTA Bilaterally Gastrointestinal: Yes: Soft Cardiovascular: Yes: Pulse Irregular JVD: No Carotid Bruit: No PMI: Non-Displaced Heart Sounds: Yes: S1, S2 Murmur: Yes: Systolic Murmur (+3/6 HSM apex) Edema: No - Other Data Labs, Other Data: CBC, BMP 02/09/19 05:43 02/09/19 05:43 Troponin, BNP 02/08/19 02/08/19 02/09/19 18:40 18:40 01:04 Troponin I Cancelled 0.07 H 0.08 H B-Natriuretic Peptide 5677.2 H 02/09/19 05:43 Troponin I 0.06 H B-Natriuretic Peptide Troponin, BNP 02/08/19 02/08/19 02/09/19 18:40 18:40 01:04 Troponin I Cancelled 0.07 H 0.08 H B-Natriuretic Peptide 5677.2 H 02/09/19 05:43 Troponin I 0.06 H B-Natriuretic Peptide Imaging - Results Chest X-ray: Report Reviewed Cat Scan: Report Reviewed EKG: Image Reviewed Problem List - Problems (1) CHF exacerbation Code(s): I50.9 - HEART FAILURE, UNSPECIFIED Qualifiers: Heart failure type: unspecified Qualified Code(s): I50.9 - Heart failure, unspecified (2) Syncope and collapse Code(s): R55 - SYNCOPE AND COLLAPSE (3) Atrial fibrillation Code(s): I48.91 - UNSPECIFIED ATRIAL FIBRILLATION Qualifiers: Atrial fibrillation type: chronic Assessment/Plan 83 year old woman with a pmhx of COPD on home O2, chronic diastolic CHF, CAD, htn, MR, Dm, and afib on pradaxa presenting with syncope. Was home and ate kinyarwanda food and than while getting up from supine position she felt lightheaded and passed out. Out for 20 seconds and had a tremor when she awoke. Blood sugar was 400 when EMS arrived. Patient denies headache. Denies fever, chills. Denies chest pain. Denies nausea , vomiting, diarrhea, abdominal pain. CXR no chf BNP elevated Carotids L ICA 50-69% Echocardiogram normal LVEF, trace MR, severe pulmonary htn EKG: afib with anterolateral infarct pattern 1) Syncope unclear etiology at this time Monitor on tele to evaluate for arrhythmia Ensure K and Mg controlled -CT head no acute m/s/b Carotids L ICA 50-69% -Echocardiogram with normal LVEF, no severe valve disease but with severe pulmonary htn. Severe pulmonary htn can be due to CHF/Left sided elevated pressures, lung disease, or PE. Given that her pulmonary is very severely elevated and was normal last year and with unexplained syncope would evaluate for PE. Consider VQ scan. -Would f/u pulmonary to treat her COPD. Continue O2 NC. BNP 6k would continue daily furosemide. 2) Afib Rate is controlled on diltiazem and currently on pradaxa. Will follow patient with you.
[2019-02-09 16:14] VITALS: BMI 22.4
[2019-02-09] MEDS ORDERED: INSULIN (NOVOLOG) ASPART 100 UNITS/ML 10ML VIAL ONE (17:44)
[2019-02-09] MEDS ORDERED: DIGOXIN 0.125 MG TABLET (FP) PO SCH (22:00)
[2019-02-09] MEDS ORDERED: ROSUVASTATIN CA 10 MG TABLET (FP) PO SCH (22:00)
[2019-02-10] MEDS: DABIGATRAN ETEXILATE MESYLATE 75 MG CAPSULE PO SCH ×3 (00:14→22:24)
[2019-02-10] MEDS: INSULIN SLIDING SCALE (NOVOLOG) 1 VIAL SQ SCH ×5 (00:14→22:24)
[2019-02-10] MEDS: methylPREDNISolone NA SUCC 40 MG/1 ML VIAL IVPUSH SCH ×3 (02:16→17:32)
[2019-02-10] MEDS: glyBURIDE 5 MG TABLET (UD) PO SCH ×2 (06:36→17:33)
[2019-02-10] MEDS ORDERED: PT OWN MED DRAWER 7, Y5N ONE (08:36)
[2019-02-10 09:02] LABS: ALBUMIN 3.4 g/dl (3.4-5.0); BILIRUBIN,TOTAL 0.5 mg/dL (0.2-1); BLOOD UREA NITROGEN 48.3 mg/dL (7-18); CALCIUM 8.5 mg/dL (8.5-10.1); CREATININE 1.3 mg/dL (0.55-1.3); POTASSIUM 3.9 mmol/L (3.5-5.1)
[2019-02-10] MEDS: ASPIRIN 81 MG CHEWABLE TABLETS PO SCH (10:14)
[2019-02-10] MEDS: FUROSEMIDE 40 MG/4 ML INJECTABLE VIAL IVPUSH SCH (10:15)
[2019-02-10] MEDS: TIOTROPIUM BROMIDE 2.5 MCG (SPIRIVA) RESPIMAT INHALER IH SCH (10:15)
--- NOTE | 2019-02-10 10:50 | PN ---
Progress Note, Physician History of Present Illness: PULMONARY AWAKE,ALERT,- BARRETT,-CP - Current Medication List Current Medications: Active Medications Albuterol/Ipratropium (Duoneb -) 1 amp NEB Q6H PRN PRN Reason: SHORTNESS OF BREATH Last Admin: 02/08/19 22:46 Dose: 1 amp Aspirin (Asa -) 81 mg PO DAILY [facility] Last Admin: 02/10/19 10:14 Dose: 81 mg Dabigatran (Pradaxa -) 75 mg PO BID [facility] Last Admin: 02/10/19 10:15 Dose: 75 mg Digoxin (Lanoxin -) 0.125 mg PO HS [facility] Last Admin: 02/10/19 00:13 Dose: 0.125 mg Diltiazem HCl (Cardizem Cd -) 120 mg PO DAILY [facility] Last Admin: 02/10/19 10:14 Dose: 120 mg Furosemide (Lasix Injection -) 40 mg IVPUSH DAILY [facility] Last Admin: 02/10/19 10:15 Dose: Not Given Glyburide (Diabeta -) 5 mg PO BIDAC [facility] Last Admin: 02/10/19 06:36 Dose: 5 mg Insulin Aspart (Novolog Vial Sliding Scale -) [address] [facility]; Protocol Last Admin: 02/10/19 06:37 Dose: 6 unit Methylprednisolone Sodium Succinate (Solu-Medrol -) 40 mg IVPUSH Q8H-IV [facility] Last Admin: 02/10/19 10:14 Dose: 40 mg Non-Formulary Medication (Linaclotide [Linzess]) 72 mcg PO DAILY [facility] Rosuvastatin Calcium (Crestor -) 10 mg PO [facility] Last Admin: 02/10/19 00:13 Dose: 10 mg Sitagliptin Phosphate (Januvia -) 25 mg PO DAILY@0700 [facility] Last Admin: 02/10/19 06:36 Dose: 25 mg Tiotropium [place] (Spiriva Respimat) 2 puff IH DAILY [facility] Last Admin: 02/10/19 10:15 Dose: 2 puff - Objective Vital Signs: Vital Signs Temperature 97.4 F L 02/10/19 06:00 Pulse Rate 69 02/10/19 06:00 Respiratory Rate 20 02/10/19 06:00 Blood Pressure 137/64 02/10/19 06:00 O2 Sat by Pulse Oximetry (%) 95 02/09/19 21:00 Constitutional: Yes: Well Nourished, Calm Eyes: Yes: WNL HENT: Yes: WNL Neck: Yes: WNL Cardiovascular: Yes: Pulse Irregular, S1, S2 Respiratory: Yes: Rales (BIBASILAR RALES) Gastrointestinal: Yes: Normal Bowel Sounds, Soft Extremities: Yes: WNL Edema: Yes Labs: CBC, BMP 02/10/19 06:55 Assessment/Plan Problem List - Problems (1) Cardiomegaly Code(s): I51.7 - CARDIOMEGALY (2) CHF exacerbation Code(s): I50.9 - HEART FAILURE, UNSPECIFIED Qualifiers: Heart failure type: unspecified Qualified Code(s): I50.9 - Heart failure, unspecified (3) Diabetes mellitus type 2, uncontrolled Code(s): E11.65 - TYPE 2 DIABETES MELLITUS WITH HYPERGLYCEMIA (4) Syncope and collapse Code(s): R55 - SYNCOPE AND COLLAPSE (5) Atrial fibrillation Code(s): I48.91 - UNSPECIFIED ATRIAL FIBRILLATION Qualifiers: Atrial fibrillation type: chronic (6) CAD S/P percutaneous coronary angioplasty Code(s): I25.10 - ATHSCL HEART DISEASE OF [place] CORONARY ARTERY W/O ANG PCTRS; Z98.61 - CORONARY ANGIOPLASTY STATUS (7) CHF (congestive heart failure) Code(s): I50.9 - HEART FAILURE, UNSPECIFIED (8) COPD (chronic obstructive pulmonary disease) Code(s): J44.9 - CHRONIC OBSTRUCTIVE PULMONARY DISEASE, UNSPECIFIED Qualifiers: COPD type: COPD with acute exacerbation Qualified Code(s): J44.1 - Chronic obstructive pulmonary disease with (acute) exacerbation (9) Dyslipidemia Code(s): E78.5 - HYPERLIPIDEMIA, UNSPECIFIED (10) HTN (hypertension) Code(s): I10 - ESSENTIAL (PRIMARY) HYPERTENSION Qualifiers: Hypertension type: essential hypertension Qualified Code(s): I10 - Essential (primary) hypertension (11) Mitral valve regurgitation Code(s): I34.0 - NONRHEUMATIC MITRAL (VALVE) INSUFFICIENCY Qualifiers: Cardiac valve disease etiology: etiology unspecified Qualified Code(s): I34.0 - Nonrheumatic mitral (valve) insufficiency (12) Acute exacerbation of chronic obstructive pulmonary disease (COPD) Code(s): J44.1 - CHRONIC OBSTRUCTIVE PULMONARY DISEASE W (ACUTE) EXACERBATION Assessment/Plan IMP: COPD SEVERE PULMONARY HTN MILD-MODERATE IV Medrol BD TX as ordered Supplemental O2 as needed to maintain saturation Lasix No smoking Daily weights DR LORA
--- NOTE | 2019-02-10 13:23 | PN ---
Progress Note (short form) - Note Progress Note: Renal follow up for MURALI/CKD Seen and examined at the bedside awake and alert offers no acute complaints no sob, cp, fever or chills making urine Vital Signs Temperature 97.8 F 02/10/19 10:00 Pulse Rate 40 L 02/10/19 10:00 Respiratory Rate 20 02/10/19 10:00 Blood Pressure 146/66 02/10/19 10:00 O2 Sat by Pulse Oximetry (%) 96 02/10/19 09:00 Intake & Output 02/07/19 02/08/19 02/09/19 02/10/19 23:59 23:59 23:59 23:59 Intake Total 200 250 Balance 200 250 Weight 56 kg 55.792 kg 57.153 kg NAD awake and alert neck supple, no JVD RRR, no M/R CTA soft NT/ND no LE edema, clubbing or cyanosis CBC, BMP 02/09/19 05:43 02/10/19 06:55 Current Medications Albuterol/Ipratropium (Duoneb -) 1 amp NEB Q6H PRN PRN Reason: SHORTNESS OF BREATH Last Admin: 02/08/19 22:46 Dose: 1 amp Aspirin (Asa -) 81 mg PO DAILY [facility] Last Admin: 02/10/19 10:14 Dose: 81 mg Dabigatran (Pradaxa -) 75 mg PO BID [facility] Last Admin: 02/10/19 10:15 Dose: 75 mg Digoxin (Lanoxin -) 0.125 mg PO HS [facility] Last Admin: 02/10/19 00:13 Dose: 0.125 mg Diltiazem HCl (Cardizem Cd -) 120 mg PO DAILY [facility] Last Admin: 02/10/19 10:14 Dose: 120 mg Furosemide (Lasix Injection -) 40 mg IVPUSH DAILY [facility] Last Admin: 02/10/19 10:15 Dose: Not Given Glyburide (Diabeta -) 5 mg PO BIDAC [facility] Last Admin: 02/10/19 06:36 Dose: 5 mg Insulin Aspart (Novolog Vial Sliding Scale -) 1 vial SQ ACHS [facility]; Protocol Last Admin: 02/10/19 11:59 Dose: 8 unit Methylprednisolone Sodium Succinate (Solu-Medrol -) 40 mg IVPUSH Q8H-IV [facility] Last Admin: 02/10/19 10:14 Dose: 40 mg Non-Formulary Medication (Linaclotide [Linzess]) 72 mcg PO DAILY [facility] Rosuvastatin Calcium (Crestor -) 10 mg PO HS [facility] Last Admin: 02/10/19 00:13 Dose: 10 mg Sitagliptin Phosphate (Januvia -) 25 mg PO DAILY@0700 [facility] Last Admin: 02/10/19 06:36 Dose: 25 mg Tiotropium [place] (Spiriva Respimat) 2 puff IH DAILY [facility] Last Admin: 02/10/19 10:15 Dose: 2 puff 83 year old woman with history of COPD, CHF, CAD, Hypertension, MVR, DM, Afib on A/C who presented withy syncope from home and noted to have Cr of 1.5. 1. MURALI 2. Syncope 3. COPD 4. CAD/CHF (preserved LVEF) 5. Hypertension 6. Elevated serum bicarb due to metabolic compensation for respiratory acidosis vs. contraction alkalosis 7. DM type 2 Renal function improved from yesterday Can resume home dose diuretics: Lasix 60mg PO daily Trend renal function and electrolytes daily Would avoid NSAIDs, IV contrast, Fleet enemas Thank you Will follow Luis Orlando DO
--- NOTE | 2019-02-10 14:10 | PN ---
Progress Note, Physician Chief Complaint: No recurrent syncope Tele: afib with VR at times 40s. Also some NSVT and run of 27beats History of Present Illness: 83 year old woman with a pmhx of COPD on home O2, chronic diastolic CHF, CAD, htn, MR, Dm, and afib on pradaxa presenting with syncope. Was home and ate beninese food and than while getting up from supine position she felt lightheaded and passed out. Out for 20 seconds and had a tremor when she awoke. Blood sugar was 400 when EMS arrived. Patient denies headache. Denies fever, chills. Denies chest pain. Denies nausea , vomiting, diarrhea, abdominal pain. CXR no chf BNP elevated Carotids L ICA 50-69% Echocardiogram normal LVEF, trace MR, severe pulmonary htn EKG: afib with anterolateral infarct pattern - Current Medication List Current Medications: Active Medications Albuterol/Ipratropium (Duoneb -) 1 amp NEB Q6H PRN PRN Reason: SHORTNESS OF BREATH Last Admin: 02/08/19 22:46 Dose: 1 amp Aspirin (Asa -) 81 mg PO DAILY [facility] Last Admin: 02/10/19 10:14 Dose: 81 mg Dabigatran (Pradaxa -) 75 mg PO BID [facility] Last Admin: 02/10/19 10:15 Dose: 75 mg Digoxin (Lanoxin -) 0.125 mg PO HS [facility] Last Admin: 02/10/19 00:13 Dose: 0.125 mg Diltiazem HCl (Cardizem Cd -) 120 mg PO DAILY [facility] Last Admin: 02/10/19 10:14 Dose: 120 mg Furosemide (Lasix -) 60 mg PO DAILY [facility] Glyburide (Diabeta -) 5 mg PO BIDAC [facility] Last Admin: 02/10/19 06:36 Dose: 5 mg Insulin Aspart (Novolog Vial Sliding Scale -) 1 vial SQ ACHS [facility]; Protocol Last Admin: 02/10/19 11:59 Dose: 8 unit Methylprednisolone Sodium Succinate (Solu-Medrol -) 40 mg IVPUSH Q8H-IV [facility] Last Admin: 02/10/19 10:14 Dose: 40 mg Non-Formulary Medication (Linaclotide [Linzess]) 72 mcg PO DAILY [facility] Rosuvastatin Calcium (Crestor -) 10 mg PO HS [facility] Last Admin: 02/10/19 00:13 Dose: 10 mg Sitagliptin Phosphate (Januvia -) 25 mg PO DAILY@0700 [facility] Last Admin: 02/10/19 06:36 Dose: 25 mg Tiotropium [place] (Spiriva Respimat) 2 puff IH DAILY [facility] Last Admin: 02/10/19 10:15 Dose: 2 puff - Objective Vital Signs: Vital Signs Temperature 97.8 F 02/10/19 10:00 Pulse Rate 40 L 02/10/19 10:00 Respiratory Rate 20 02/10/19 10:00 Blood Pressure 146/66 02/10/19 10:00 O2 Sat by Pulse Oximetry (%) 96 02/10/19 09:00 Constitutional: Yes: No Distress Neck: Yes: Supple Cardiovascular: Yes: Pulse Irregular, JVD, Murmur (+3/6 HSM apex), S1, S2 Respiratory: Yes: Diminished Gastrointestinal: Yes: Soft Edema: No Labs: CBC, BMP 02/09/19 05:43 02/10/19 06:55 Problem List - Problems (1) CHF exacerbation Code(s): I50.9 - HEART FAILURE, UNSPECIFIED Qualifiers: Heart failure type: unspecified Qualified Code(s): I50.9 - Heart failure, unspecified (2) Syncope and collapse Code(s): R55 - SYNCOPE AND COLLAPSE (3) Atrial fibrillation Code(s): I48.91 - UNSPECIFIED ATRIAL FIBRILLATION Qualifiers: Atrial fibrillation type: chronic Assessment/Plan 83 year old woman with a pmhx of COPD on home O2, chronic diastolic CHF, CAD, htn, MR, Dm, and afib on pradaxa presenting with syncope. Was home and ate beninese food and than while getting up from supine position she felt lightheaded and passed out. Out for 20 seconds and had a tremor when she awoke. Blood sugar was 400 when EMS arrived. Patient denies headache. Denies fever, chills. Denies chest pain. Denies nausea , vomiting, diarrhea, abdominal pain. CXR no chf BNP elevated Carotids L ICA 50-69% Echocardiogram normal LVEF, trace MR, severe pulmonary htn EKG: afib with anterolateral infarct pattern 1) Syncope unclear etiology at this time but concern for arrhythmia. HR at times on slow side but no significant pauses. Will stop digoxin. Will decide on diltiazem dose tomorrow based on tele. Ensure K and Mg controlled -CT head no acute m/s/b Carotids L ICA 50-69% -Echocardiogram with normal LVEF, no severe valve disease but with severe pulmonary htn. Likely that degree of MR is underestimated given past history and current physical exam/murmur. Severe pulmonary htn can be due to CHF/Left sided elevated pressures, lung disease, or PE. Given that her pulmonary is very severely elevated and was normal last year and with unexplained syncope would evaluate for PE. Consider VQ scan. -Would f/u pulmonary to treat her COPD. Continue O2 NC. BNP 6k would continue daily furosemide PO. 2) Afib Stopping digoxin due to HR's on slower side Will decide on diltiazem dose tomorrow as already received Plan for EP evaluation with Dr. Castaneda given syncope with story concerning for an arrhythmia and NSVT 27 beats on tele. Will follow patient with you.
[2019-02-10] MEDS: FUROSEMIDE 40 MG TABLET (FP) PO SCH (14:19)
--- NOTE | 2019-02-10 14:33 | PN ---
Progress Note, Physician Chief Complaint: patient seen and examined - Current Medication List Current Medications: Active Medications Albuterol/Ipratropium (Duoneb -) 1 amp NEB Q6H PRN PRN Reason: SHORTNESS OF BREATH Last Admin: 02/08/19 22:46 Dose: 1 amp Aspirin (Asa -) 81 mg PO DAILY [facility] Last Admin: 02/10/19 10:14 Dose: 81 mg Dabigatran (Pradaxa -) 75 mg PO BID [facility] Last Admin: 02/10/19 10:15 Dose: 75 mg Diltiazem HCl (Cardizem Cd -) 120 mg PO DAILY [facility] Last Admin: 02/10/19 10:14 Dose: 120 mg Furosemide (Lasix -) 60 mg PO DAILY [facility] Last Admin: 02/10/19 14:19 Dose: 60 mg Glyburide (Diabeta -) 5 mg PO BIDAC [facility] Last Admin: 02/10/19 06:36 Dose: 5 mg Insulin Aspart (Novolog Vial Sliding Scale -) 1 vial SQ ACHS [facility]; Protocol Last Admin: 02/10/19 11:59 Dose: 8 unit Methylprednisolone Sodium Succinate (Solu-Medrol -) 40 mg IVPUSH Q8H-IV [facility] Last Admin: 02/10/19 10:14 Dose: 40 mg Non-Formulary Medication (Linaclotide [Linzess]) 72 mcg PO DAILY [facility] Rosuvastatin Calcium (Crestor -) 10 mg PO HS [facility] Last Admin: 02/10/19 00:13 Dose: 10 mg Sitagliptin Phosphate (Januvia -) 25 mg PO DAILY@0700 [facility] Last Admin: 02/10/19 06:36 Dose: 25 mg Tiotropium [place] (Spiriva Respimat) 2 puff IH DAILY [facility] Last Admin: 02/10/19 10:15 Dose: 2 puff - Objective Vital Signs: Vital Signs Temperature 97.8 F 02/10/19 10:00 Pulse Rate 40 L 02/10/19 10:00 Respiratory Rate 20 02/10/19 10:00 Blood Pressure 146/66 02/10/19 10:00 O2 Sat by Pulse Oximetry (%) 96 02/10/19 09:00 Constitutional: Yes: Calm Cardiovascular: Yes: Tachycardia, Murmur, S1, S2 Respiratory: Yes: CTA Bilaterally Gastrointestinal: Yes: Normal Bowel Sounds, Soft Labs: CBC, BMP 02/09/19 05:43 02/10/19 06:55 Problem List - Problems (1) Syncope and collapse Assessment/Plan: telemetry echo severe pulm htn, mild to moderate aortic stenosis carotid doppler noted for stenosis - vascuklar consult cardiology eval noted will stop digoxin vq scan given the sever pulm htn and syncope r/o PE disucessed with cardiology Code(s): R55 - SYNCOPE AND COLLAPSE (2) Atrial fibrillation Assessment/Plan: pradaxa and diltizem Code(s): I48.91 - UNSPECIFIED ATRIAL FIBRILLATION Qualifiers: Atrial fibrillation type: chronic (3) CHF (congestive heart failure) Assessment/Plan: iv lasix to po lasix garcia cath monitor i/o daily weights Code(s): I50.9 - HEART FAILURE, UNSPECIFIED (4) COPD (chronic obstructive pulmonary disease) Code(s): J44.9 - CHRONIC OBSTRUCTIVE PULMONARY DISEASE, UNSPECIFIED Qualifiers: COPD type: COPD with acute exacerbation Qualified Code(s): J44.1 - Chronic obstructive pulmonary disease with (acute) exacerbation
--- NOTE | 2019-02-10 16:35 | PN ---
Progress Note (short form) - Note Progress Note: angel cancel VQ scan will order d dimer first and renal consult and then CT angio to r/o PE if ok with renal Problem List - Problems (1) Syncope and collapse Code(s): R55 - SYNCOPE AND COLLAPSE (2) Atrial fibrillation Code(s): I48.91 - UNSPECIFIED ATRIAL FIBRILLATION Qualifiers: Atrial fibrillation type: chronic (3) CHF (congestive heart failure) Code(s): I50.9 - HEART FAILURE, UNSPECIFIED (4) COPD (chronic obstructive pulmonary disease) Code(s): J44.9 - CHRONIC OBSTRUCTIVE PULMONARY DISEASE, UNSPECIFIED Qualifiers: COPD type: COPD with acute exacerbation Qualified Code(s): J44.1 - Chronic obstructive pulmonary disease with (acute) exacerbation
[2019-02-10] MEDS: ALBUTEROL SO4 2.5/IPRATROPIUM 0.5 INH SOL 3 ML VIAL.NEB. NEB PRN (20:05)
[2019-02-10] MEDS: ROSUVASTATIN CA 10 MG TABLET (FP) PO SCH (22:24)
--- NOTE | 2019-02-10 22:46 | CON.CARD ---
Consult Consult Specialty:: Cardiac Electrophysiology Referred by:: Dr. Mukherjee Reason for Consultation:: EPS Eval for NSVT, Syncope - History of Present Illness Chief Complaint: Syncope History of Present Illness: Ms. Tapia is a pleasant 83 year old female with a pmh of Atrial fibrillation on pradaxa, CAD, IN, s/p PCI x 2 (most recent [facility] 2016 with patent stents), htn , inc chol, copd on home o2 who presented yesterday for evaluation due to witnessed syncopal event at home. The patient was eating irish food at home with her family. Her daughter had asked her for a check and when the patient turned around to look at the closet she suddenly collapsed. She had some dizziness prior to collapse. The patient states that she was down for about 15-20 seconds. When she woke up, she states that someone noticed her to have tremors of her arms. She presented to the ER for evaluation. She was noticed to have a slightly elevated troponin in the setting of MURALI. Telemetry monitoring has demonstrated salvos of NSVT with longest run being this morning, lasting 11 sec at an accelerating rate to about 180 bpm. Her rates have been usually between 40-70 bpm. She remains in AF. She was reportedly having increased dyspnea on exertion for the past 6 weeks, sometimes requiring increased home o2. She was hyperglycemic on admission. Echo has demonstrated normal LVEF with severe PAH. She is being considered for v/q scan for PE evaluation. Her digoxin level was 1 on admission. Her digoxin was discontinued today. She denies any chest pain, palpitations. EKG demonstrates AF with IVCD, prior anterolateral IN. Pt reports she was not wearing her home o2 when syncopized. - History Source History Provided By: Patient, Medical Record Limitations to Obtaining History: No Limitations - Past Medical History Cardio/Vascular: Yes: AFIB, CAD (S/P STENTING), CHF, HTN, Hyperlipdemia Pulmonary: Yes: Bronchitis, COPD, O2 Dependent, Pneumonia. No: Asthma, Previously Intubated, Pulmonary Embolus, Pulmonary Fibrosis, Sleep Apnea Musculoskeletal: Yes: Chronic low back pain Endocrine: Yes: Diabetes Mellitus - Alcohol/Substance Use Hx Alcohol Use: No History of Substance Use: reports: None - Smoking History Smoking history: Former smoker Have you smoked in the past 12 months: No Aproximately how many cigarettes per day: 0 If you are a former smoker, when did you quit?: 2 years ago - Social History ADL: Family Assistance ([employer]ICK[employer]) History of Recent Travel: No Home Medications - Allergies Allergies/Adverse Reactions: Allergies Allergy/AdvReac Type Severity Reaction Status Date / Time No Known Allergies Allergy Verified 02/08/19 18:16 - Home Medications Home Medications: Ambulatory Orders Rosuvastatin [Crestor -] 20 mg PO DAILY 11/15/16 Albuterol 2.5/Ipratropium 0.5 [Duoneb -] 1 amp NEB QIDR amp 11/19/16 Aspirin [ASA -] 81 mg PO DAILY #30 tab.chew 11/19/16 Cholecalciferol (Vitamin D3) [Optimal D3] 50,000 unit PO WEEKLY 06/22/17 Dabigatran Etexilate Mesylate [Pradaxa -] 75 mg PO BID 06/22/17 Sitagliptin Phosphate [Januvia -] 50 mg PO DAILY@0700 06/22/17 Albuterol Sulfate 0.042% [Ventolin 0.042% (Half-Strength) -] 1 amp NEB Q4H PRN amp 06/29/17 Insulin Sliding Scale [Novolog Vial Sliding Scale -] 1 vial SQ ACHS units 06/29 Acetaminophen [Tylenol .Extra-Strength -] 1,000 mg PO Q8H PRN tablet 07/07/17 Diltiazem Cd [Cardizem Cd -] 120 mg PO DAILY cap.cd.24h 07/07/17 Insulin (Levemir) [Levemir Vial] 10 units SQ AM ml 07/07/17 Tiotropium [place] [Spiriva] 1 puff IH DAILY cap 07/07/17 Digoxin [Lanoxin -] 0.125 mg PO HS 02/08/19 Furosemide [Lasix -] 60 mg PO DAILY 02/08/19 Glyburide 5 mg PO BID 02/08/19 Linaclotide [Linzess] 72 mcg PO DAILY 02/08/19 Family Medical History Family History: Unremarkable (no fam hx of scd) Review of Systems - Review of Systems Constitutional: reports: No Symptoms HENT: reports: No Symptoms Neck: reports: No Symptoms Cardiovascular: reports: Edema, Shortness of Breath Respiratory: reports: SOB, SOB on Exertion Gastrointestinal: reports: No Symptoms Musculoskeletal: reports: Extremity Pain (left ankle) Neurological: reports: Syncope - Risk Factors Known Risk Factors: Yes: Diabetes Mellitus, Hypercholesterolemia, Hypertension, Smoking (former) Vital Signs: Vital Signs Temperature 97.7 F 02/10/19 18:00 Pulse Rate 64 02/10/19 18:00 Respiratory Rate 20 02/10/19 18:00 Blood Pressure 158/75 02/10/19 18:00 O2 Sat by Pulse Oximetry (%) 96 02/10/19 09:00 Constitutional: Yes: Well Nourished, No Distress, Calm. No: Severe Distress Eyes: Yes: WNL, EOM Intact HENT: Yes: WNL, Atraumatic, Other (nasal canula in place) Neck: Yes: WNL, Supple Respiratory: Yes: CTA Bilaterally (distant bs) Gastrointestinal: Yes: WNL, Normal Bowel Sounds, Soft Renal/: Yes: WNL Cardiovascular: Yes: Pulse Irregular, Other (regular rate) JVD: No Murmur: Yes: Systolic Murmur Edema: LLE: 1+ Integumentary: Yes: Other (ecchymosis noted) Neurological: Yes: Alert, Oriented Psychiatric: Yes: Alert, Oriented - Other Data Labs, Other Data: CBC, BMP 02/09/19 05:43 02/10/19 06:55 Troponin, BNP 02/10/19 06:55 Troponin I 0.08 H Troponin, BNP 02/10/19 06:55 Troponin I 0.08 H Prior Cardiac Procedures: Cardiac Catheterization, PTCA with Stent Ejection Fraction %: LVEF > or = 40 % Imaging - Results Chest X-ray: Report Reviewed EKG: Image Reviewed Problem List - Problems (1) Syncope and collapse Code(s): R55 - SYNCOPE AND COLLAPSE (2) Atrial fibrillation Code(s): I48.91 - UNSPECIFIED ATRIAL FIBRILLATION Qualifiers: Atrial fibrillation type: chronic (3) CAD S/P percutaneous coronary angioplasty Code(s): I25.10 - ATHSCL HEART DISEASE OF [place] CORONARY ARTERY W/O ANG PCTRS; Z98.61 - CORONARY ANGIOPLASTY STATUS (4) NSVT (nonsustained ventricular tachycardia) Code(s): I47.2 - VENTRICULAR TACHYCARDIA Assessment/Plan Ms. Tapia is a pleasant 83 year old female with a pmh of Atrial fibrillation on pradaxa, CAD, IN, s/p PCI x 2 (most recent [facility] 2016 with patent stents), htn , inc chol, copd on home o2 who presented yesterday for evaluation due to witnessed syncopal event at home, found to have NSVT 1. NSVT: pt with hx of cad s/p pci. prior IN. rhythm during WCT is two leads on a telemetry strip but the morphology of the QRS complex does change although there is some irregularity. likely NSVT, particularly given prior hx of IN. last cath 2017 with patent stents. worsening dyspnea. rates reach upto 180 bpm which could lead to syncope if prolonged as an outpt in the elderly pt. normal LVEF on echo. no indication for icd at this time. - recommend ischemic eval with nuclear stress test - ILR as inpt if possible, otherwise as outpt for further monitoring - keep k 4-4.5, mg 2-2.5 - now that digoxin has been discontinued. would watch rates and increase av trey blocking therapy as feasible 2. AF: on pradaxa. rates 40-70's. moderate LAE. on cardizem. digoxin stopped. - c/w telemetry - c/w pradaxa - pt aware that may benefit from ppm in the future but no urgent indication at this time 3. Syncope: unclear. pt was hyperglycemic and was not wearing home o2. however also with worsening dyspnea and found to have rates of between 40-70 bpm with NSVT on telemetry. carotid disease reported but isolate disease unlikely to explain syncope on own. no recurrent syncope during hospitalization. newly diagnosed severe pulm htn. being worked up for PE. - plan as above 4. Bradycardia: as above. no indication for urgent ppm at this time. however pt aware that may benefit from ppm in the future should she have persistent bradycardia. Case d/w Dr. Mukherjee. Thank you for allowing me to participate in the care of your patient. Please call with any questions. [phone]. Time spent: 54 minutes.
[2019-02-11] MEDS: methylPREDNISolone NA SUCC 40 MG/1 ML VIAL IVPUSH SCH ×3 (01:53→17:43)
[2019-02-11] MEDS: glyBURIDE 5 MG TABLET (UD) PO SCH ×2 (06:31→16:57)
[2019-02-11] MEDS: INSULIN SLIDING SCALE (NOVOLOG) 1 VIAL SQ SCH ×4 (06:31→22:27)
[2019-02-11 07:18] LABS: HEMATOCRIT 32.9 % (32.4-45.2); HEMOGLOBIN 11.1 GM/dL (10.7-15.3); LYMPH % 5.2 % (8-40); MCH 30.4 pg (25.7-33.7); MCHC 33.7 g/dl (32.0-36.0); MEAN CELL VOLUME 90.3 fl (80-96); MEAN PLT VOLUME 10.4 fl (7.5-11.1); MONO % 2.2 % (3.8-10.2); NEUT % 92.6 % (42.8-82.8); PLATELET COUNT 167 K/MM3 (134-434); RBC 3.64 M/mm3 (3.60-5.2); RDW 16.7 % (11.6-15.6); WHITE BLOOD COUNT 7.6 K/mm3 (4.0-10.0)
[2019-02-11 09:12] LABS: ALBUMIN 3.4 g/dl (3.4-5.0); BILIRUBIN,TOTAL 0.5 mg/dL (0.2-1); BLOOD UREA NITROGEN 58.3 mg/dL (7-18); CALCIUM 8.6 mg/dL (8.5-10.1); CREATININE 1.4 mg/dL (0.55-1.3); POTASSIUM 3.8 mmol/L (3.5-5.1); TOT PROT 6.3 g/dl (6.4-8.2)
[2019-02-11] MEDS: TIOTROPIUM BROMIDE 2.5 MCG (SPIRIVA) RESPIMAT INHALER IH SCH (10:00)
--- NOTE | 2019-02-11 10:00 | PN ---
Progress Note, Physician History of Present Illness: pulmonary alert,comfortable at rest,pt having episodes bradycardia/svt - Current Medication List Current Medications: Active Medications Albuterol/Ipratropium (Duoneb -) 1 amp NEB Q6H PRN PRN Reason: SHORTNESS OF BREATH Last Admin: 02/10/19 20:05 Dose: 1 amp Aspirin (Asa -) 81 mg PO DAILY [facility] Last Admin: 02/10/19 10:14 Dose: 81 mg Dabigatran (Pradaxa -) 75 mg PO BID [facility] Last Admin: 02/10/19 22:24 Dose: 75 mg Diltiazem HCl (Cardizem Cd -) 120 mg PO DAILY [facility] Last Admin: 02/10/19 10:14 Dose: 120 mg Furosemide (Lasix -) 60 mg PO DAILY [facility] Last Admin: 02/10/19 14:19 Dose: 60 mg Glyburide (Diabeta -) 5 mg PO BIDAC [facility] Last Admin: 02/11/19 06:31 Dose: 5 mg Insulin Aspart (Novolog Vial Sliding Scale -) 1 vial SQ [facility]; Protocol Last Admin: 02/11/19 06:31 Dose: 4 unit Methylprednisolone Sodium Succinate (Solu-Medrol -) 40 mg IVPUSH Q8H-IV [facility] Last Admin: 02/11/19 01:53 Dose: 40 mg Non-Formulary Medication (Linaclotide [Linzess]) 72 mcg PO DAILY [facility] Rosuvastatin Calcium (Crestor -) 10 mg PO HS [facility] Last Admin: 02/10/19 22:24 Dose: 10 mg Sitagliptin Phosphate (Januvia -) 25 mg PO DAILY@0700 [facility] Last Admin: 02/11/19 06:31 Dose: 25 mg Tiotropium [place] (Spiriva Respimat) 2 puff IH DAILY [facility] Last Admin: 02/10/19 10:15 Dose: 2 puff - Objective Vital Signs: Vital Signs Temperature 97.3 F L 02/11/19 09:50 Pulse Rate 69 02/11/19 09:50 Respiratory Rate 20 02/11/19 09:50 Blood Pressure 160/92 02/11/19 09:50 O2 Sat by Pulse Oximetry (%) 100 02/10/19 21:00 Constitutional: Yes: Calm, Thin Eyes: Yes: WNL HENT: Yes: WNL Neck: Yes: WNL Cardiovascular: Yes: Pulse Irregular, S1, S2 Respiratory: Yes: Rales (bibasilar crackles) Gastrointestinal: Yes: Normal Bowel Sounds, Soft Extremities: Yes: WNL Edema: No Labs: CBC, BMP 02/11/19 06:30 02/11/19 06:30 Laboratory Tests 02/10/19 19:10 D-Dimer [id number] Assessment/Plan Problem List - Problems (1) Cardiomegaly Code(s): I51.7 - CARDIOMEGALY (2) CHF exacerbation Code(s): I50.9 - HEART FAILURE, UNSPECIFIED Qualifiers: Heart failure type: unspecified Qualified Code(s): I50.9 - Heart failure, unspecified (3) Diabetes mellitus type 2, uncontrolled Code(s): E11.65 - TYPE 2 DIABETES MELLITUS WITH HYPERGLYCEMIA (4) Syncope and collapse Code(s): R55 - SYNCOPE AND COLLAPSE (5) Atrial fibrillation Code(s): I48.91 - UNSPECIFIED ATRIAL FIBRILLATION Qualifiers: Atrial fibrillation type: chronic (6) CAD S/P percutaneous coronary angioplasty Code(s): I25.10 - ATHSCL HEART DISEASE OF [place] CORONARY ARTERY W/O ANG PCTRS; Z98.61 - CORONARY ANGIOPLASTY STATUS (7) CHF (congestive heart failure) Code(s): I50.9 - HEART FAILURE, UNSPECIFIED (8) COPD (chronic obstructive pulmonary disease) Code(s): J44.9 - CHRONIC OBSTRUCTIVE PULMONARY DISEASE, UNSPECIFIED Qualifiers: COPD type: COPD with acute exacerbation Qualified Code(s): J44.1 - Chronic obstructive pulmonary disease with (acute) exacerbation (9) Dyslipidemia Code(s): E78.5 - HYPERLIPIDEMIA, UNSPECIFIED (10) HTN (hypertension) Code(s): I10 - ESSENTIAL (PRIMARY) HYPERTENSION Qualifiers: Hypertension type: essential hypertension Qualified Code(s): I10 - Essential (primary) hypertension (11) Mitral valve regurgitation Code(s): I34.0 - NONRHEUMATIC MITRAL (VALVE) INSUFFICIENCY Qualifiers: Cardiac valve disease etiology: etiology unspecified Qualified Code(s): I34.0 - Nonrheumatic mitral (valve) insufficiency (12) Acute exacerbation of chronic obstructive pulmonary disease (COPD) Code(s): J44.1 - CHRONIC OBSTRUCTIVE PULMONARY DISEASE W (ACUTE) EXACERBATION Assessment/Plan IMP: COPD/ILD SEVERE PULMONARY HTN MILD-MODERATE AFIB MURALI IV Medrol BD TX as ordered Supplemental O2 as needed to maintain saturation Lasix as needed No smoking Daily weights rate control doubt PE,nl D-DIMER,pt on ac DR LORA
--- NOTE | 2019-02-11 10:21 | PN ---
Progress Note, Physician - Current Medication List Current Medications: Active Medications Albuterol/Ipratropium (Duoneb -) 1 amp NEB Q6H PRN PRN Reason: SHORTNESS OF BREATH Last Admin: 02/10/19 20:05 Dose: 1 amp Aspirin (Asa -) 81 mg PO DAILY [facility] Last Admin: 02/10/19 10:14 Dose: 81 mg Dabigatran (Pradaxa -) 75 mg PO BID [facility] Last Admin: 02/10/19 22:24 Dose: 75 mg Diltiazem HCl (Cardizem Cd -) 120 mg PO DAILY [facility] Last Admin: 02/10/19 10:14 Dose: 120 mg Furosemide (Lasix -) 60 mg PO DAILY [facility] Last Admin: 02/10/19 14:19 Dose: 60 mg Glyburide (Diabeta -) 5 mg PO BIDAC [facility] Last Admin: 02/11/19 06:31 Dose: 5 mg Insulin Aspart (Novolog Vial Sliding Scale -) 1 vial SQ [facility]; Protocol Last Admin: 02/11/19 06:31 Dose: 4 unit Methylprednisolone Sodium Succinate (Solu-Medrol -) 40 mg IVPUSH Q8H-IV [facility] Last Admin: 02/11/19 01:53 Dose: 40 mg Non-Formulary Medication (Linaclotide [Linzess]) 72 mcg PO DAILY [facility] Rosuvastatin Calcium (Crestor -) 10 mg PO HS [facility] Last Admin: 02/10/19 22:24 Dose: 10 mg Sitagliptin Phosphate (Januvia -) 25 mg PO DAILY@0700 [facility] Last Admin: 02/11/19 06:31 Dose: 25 mg Tiotropium [place] (Spiriva Respimat) 2 puff IH DAILY [facility] Last Admin: 02/10/19 10:15 Dose: 2 puff - Objective Vital Signs: Vital Signs Temperature 97.3 F L 02/11/19 09:50 Pulse Rate 69 02/11/19 09:50 Respiratory Rate 20 02/11/19 09:50 Blood Pressure 160/92 02/11/19 09:50 O2 Sat by Pulse Oximetry (%) 98 02/11/19 09:00 Cardiovascular: Yes: Pulse Irregular, S1, S2 Respiratory: Yes: On Nasal O2, Rhonchi Gastrointestinal: Yes: Normal Bowel Sounds, Soft Labs: CBC, BMP 02/11/19 06:30 02/11/19 06:30 Problem List - Problems (1) Arrhythmia Assessment/Plan: still with periods of bradycardia will need a pacemaker monitor NST Code(s): I49.9 - CARDIAC ARRHYTHMIA, UNSPECIFIED (2) Acute exacerbation of chronic obstructive pulmonary disease (COPD) Assessment/Plan: nebs steroids pulm on board no need for cta--low suspicion for pe Code(s): J44.1 - CHRONIC OBSTRUCTIVE PULMONARY DISEASE W (ACUTE) EXACERBATION (3) CHF exacerbation Assessment/Plan: po lasix monitor Laboratory Tests 08/31/11 02/10/19 02/11/19 01:50 06:55 06:30 RBC 3.60 BUN 48.3 H 58.3 H Creatinine 1.3 1.4 H Code(s): I50.9 - HEART FAILURE, UNSPECIFIED Qualifiers: Heart failure type: unspecified Qualified Code(s): I50.9 - Heart failure, unspecified (4) Diabetes mellitus type 2, uncontrolled Assessment/Plan: bgm Code(s): E11.65 - TYPE 2 DIABETES MELLITUS WITH HYPERGLYCEMIA (5) Atrial fibrillation Code(s): I48.91 - UNSPECIFIED ATRIAL FIBRILLATION Qualifiers: Atrial fibrillation type: chronic (6) Diabetes Code(s): E11.9 - TYPE 2 DIABETES MELLITUS WITHOUT COMPLICATIONS Qualifiers: Diabetes mellitus type: other specified (including YULISA) Diabetes mellitus termination clerk insulin use: with fpc use Diabetes mellitus complication status: with unspecified complications (7) MURALI (acute kidney injury) Assessment/Plan: [place] consult Code(s): N17.9 - ACUTE KIDNEY FAILURE, UNSPECIFIED
[2019-02-11] MEDS: FUROSEMIDE 40 MG TABLET (FP) PO SCH (10:47)
[2019-02-11] MEDS: ASPIRIN 81 MG CHEWABLE TABLETS PO SCH (10:47)
[2019-02-11] MEDS ORDERED: PT OWN MED DRAWER 7, Y5N ONE ×2 (10:49→16:54)
[2019-02-11] MEDS: DABIGATRAN ETEXILATE MESYLATE 75 MG CAPSULE PO SCH ×2 (10:49→21:31)
--- NOTE | 2019-02-11 11:37 | PN ---
Progress Note, Physician Chief Complaint: generalized weakness History of Present Illness: 83 year old woman with a pmhx of COPD on home O2, chronic diastolic CHF, CAD, htn, MR, Dm, and afib on pradaxa presenting with syncope. Was home and ate japanese food and than while getting up from supine position she felt lightheaded and passed out. Out for 20 seconds and had a tremor when she awoke. Blood sugar was 400 when EMS arrived. - Current Medication List Current Medications: Active Medications Albuterol/Ipratropium (Duoneb -) 1 amp NEB Q6H PRN PRN Reason: SHORTNESS OF BREATH Last Admin: 02/10/19 20:05 Dose: 1 amp Aspirin (Asa -) 81 mg PO DAILY [facility] Last Admin: 02/11/19 10:47 Dose: 81 mg Dabigatran (Pradaxa -) 75 mg PO BID [facility] Last Admin: 02/11/19 10:49 Dose: 75 mg Diltiazem HCl (Cardizem Cd -) 120 mg PO DAILY [facility] Last Admin: 02/10/19 10:14 Dose: 120 mg Furosemide (Lasix -) 60 mg PO DAILY [facility] Last Admin: 02/11/19 10:47 Dose: 60 mg Glyburide (Diabeta -) 5 mg PO BIDAC [facility] Last Admin: 02/11/19 06:31 Dose: 5 mg Insulin Aspart (Novolog Vial Sliding Scale -) 1 vial SQ ACHS [facility]; Protocol Last Admin: 02/11/19 06:31 Dose: 4 unit Methylprednisolone Sodium Succinate (Solu-Medrol -) 40 mg IVPUSH Q8H-IV [facility] Last Admin: 02/11/19 01:53 Dose: 40 mg Non-Formulary Medication (Linaclotide [Linzess]) 72 mcg PO DAILY [facility] Rosuvastatin Calcium (Crestor -) 10 mg PO HS [facility] Last Admin: 02/10/19 22:24 Dose: 10 mg Sitagliptin Phosphate (Januvia -) 25 mg PO DAILY@0700 [facility] Last Admin: 02/11/19 06:31 Dose: 25 mg Tiotropium [place] (Spiriva Respimat) 2 puff IH DAILY [facility] Last Admin: 02/10/19 10:15 Dose: 2 puff - Objective Vital Signs: Vital Signs Temperature 97.3 F L 02/11/19 09:50 Pulse Rate 69 02/11/19 09:50 Respiratory Rate 20 02/11/19 09:50 Blood Pressure 160/92 02/11/19 09:50 O2 Sat by Pulse Oximetry (%) 98 02/11/19 09:00 Constitutional: Yes: Well Nourished, Anxious Eyes: Yes: WNL HENT: Yes: WNL, Atraumatic Neck: Yes: WNL, Supple, Trachea Midline Cardiovascular: Yes: Pulse Irregular, S1, S2, Other (distant breath sounds, reduced air movement, no rales/wheezes) Gastrointestinal: Yes: WNL, Normal Bowel Sounds, Soft ...Rectal Exam: Yes: Deferred Genitourinary: Yes: WNL Musculoskeletal: Yes: Back Pain Extremities: Yes: WNL Edema: No Peripheral Pulses: Left Radial: 1+, Right Radial: 1+, Left Doralis Pedis: 1+, Right Dorsalis Pedis: 1+, Left Femoral: 1+, Right Femoral: 1+ Neurological: Yes: WNL, Alert, Oriented ...Motor Strength: WNL Psychiatric: Yes: WNL, Alert, Oriented Labs: CBC, BMP 02/11/19 06:30 02/11/19 06:30 Assessment/Plan 83 year old woman with a pmhx of COPD on home O2, chronic diastolic CHF, CAD, htn, MR, Dm, and afib on pradaxa presenting with syncope. Was home and ate japanese food and than while getting up from supine position she felt lightheaded and passed out. Out for 20 seconds and had a tremor when she awoke. Blood sugar was 400 when EMS arrived. Still with short runs of NSVT's on telemetry. continue current regimen for the time being. Continue cardiac monitoring. Please arrange for a pharmacological nuclear stress test. ILR as per EP. the patient is stable.
--- NOTE | 2019-02-11 16:00 | PN ---
Progress Note, Physician History of Present Illness: Pt seen and examined at bedside. She is awake and alert. She says that her breathing is at baseline. - Current Medication List Current Medications: Active Medications Albuterol/Ipratropium (Duoneb -) 1 amp NEB Q6H PRN PRN Reason: SHORTNESS OF BREATH Last Admin: 02/10/19 20:05 Dose: 1 amp Aspirin (Asa -) 81 mg PO DAILY [facility] Last Admin: 02/11/19 10:47 Dose: 81 mg Dabigatran (Pradaxa -) 75 mg PO BID [facility] Last Admin: 02/11/19 10:49 Dose: 75 mg Diltiazem HCl (Cardizem Cd -) 120 mg PO DAILY [facility] Last Admin: 02/10/19 10:14 Dose: 120 mg Furosemide (Lasix -) 60 mg PO DAILY [facility] Last Admin: 02/11/19 10:47 Dose: 60 mg Glyburide (Diabeta -) 5 mg PO BIDAC [facility] Last Admin: 02/11/19 06:31 Dose: 5 mg Insulin Aspart (Novolog Vial Sliding Scale -) 1 vial SQ ACHS [facility]; Protocol Last Admin: 02/11/19 11:57 Dose: 10 unit Methylprednisolone Sodium Succinate (Solu-Medrol -) 40 mg IVPUSH Q8H-IV [facility] Last Admin: 02/11/19 10:00 Dose: 40 mg Non-Formulary Medication (Linaclotide [Linzess]) 72 mcg PO DAILY [facility] Rosuvastatin Calcium (Crestor -) 10 mg PO HS [facility] Last Admin: 02/10/19 22:24 Dose: 10 mg Sitagliptin Phosphate (Januvia -) 25 mg PO DAILY@0700 [facility] Last Admin: 02/11/19 06:31 Dose: 25 mg Tiotropium [place] (Spiriva Respimat) 2 puff IH DAILY [facility] Last Admin: 02/11/19 10:00 Dose: 2 puff - Objective Vital Signs: Vital Signs Temperature 97.4 F L 02/11/19 14:00 Pulse Rate 70 02/11/19 14:00 Respiratory Rate 20 02/11/19 14:00 Blood Pressure 151/89 02/11/19 14:00 O2 Sat by Pulse Oximetry (%) 98 02/11/19 09:00 Constitutional: Yes: Calm Eyes: Yes: Conjunctiva Clear HENT: Yes: Atraumatic Neck: Yes: Supple Cardiovascular: Yes: S1, S2 Respiratory: Yes: On Nasal O2 Gastrointestinal: Yes: Normal Bowel Sounds, Soft Genitourinary: Yes: WNL Musculoskeletal: Yes: WNL Edema: Yes Edema: LLE: 1+, RLE: 1+ Neurological: Yes: Oriented Psychiatric: Yes: Oriented Labs: CBC, BMP 02/11/19 06:30 02/11/19 06:30 Problem List - Problems (1) CKD (chronic kidney disease) Code(s): N18.9 - CHRONIC KIDNEY DISEASE, UNSPECIFIED Assessment/Plan Current Medications Generic Name Dose Route Start Last Admin Trade Name Freq PRN Reason Stop Dose Admin Albuterol/Ipratropium 1 amp 02/08/19 22:44 02/10/19 20:05 Duoneb - NEB 1 amp Q6H PRN Administration SHORTNESS OF BREATH Aspirin 81 mg 02/09/19 10:00 02/11/19 10:47 Asa - PO 81 mg DAILY [facility] Administration Dabigatran 75 mg 02/08/19 23:00 02/11/19 10:49 Pradaxa - PO 75 mg BID [facility] Administration Diltiazem HCl 120 mg 02/09/19 10:00 02/10/19 10:14 Cardizem Cd - PO 120 mg DAILY [facility] Administration Furosemide 60 mg 02/10/19 13:30 02/11/19 10:47 Lasix - PO 60 mg DAILY [facility] Administration Glyburide 5 mg 02/09/19 07:00 02/11/19 06:31 Diabeta - PO 5 mg BIDAC [facility] Administration Insulin Aspart 1 vial 02/09/19 07:00 02/11/19 11:57 Novolog Vial Sliding Scale - SQ 10 unit ACHS [facility] Administration Protocol Methylprednisolone Sodium Succinate 40 mg 02/09/19 04:45 02/11/19 10:00 Solu-Medrol - IVPUSH 40 mg Q8H-IV [facility] Administration Non-Formulary Medication 72 mcg 02/09/19 10:00 Linaclotide [Linzess] PO DAILY [facility] Rosuvastatin Calcium 10 mg 02/10/19 22:00 02/10/19 22:24 Crestor - PO 10 mg HS [facility] Administration Sitagliptin Phosphate 25 mg 02/09/19 07:00 02/11/19 06:31 Januvia - PO 25 mg DAILY@0700 [facility] Administration Tiotropium [place] 2 puff 02/09/19 10:00 02/11/19 10:00 Spiriva Respimat IH 2 puff DAILY [facility] Administration Laboratory Tests 07/03/17 07/04/17 02/08/19 06:00 06:00 18:40 Creatinine 1.4 H 1.5 H 1.3 Urine Protein Urine Blood 02/08/19 02/09/19 02/10/19 19:30 05:43 06:55 Creatinine 1.5 H 1.3 Urine Protein 1+ H Urine Blood Negative 02/11/19 06:30 Creatinine 1.4 H Urine Protein Urine Blood 83 year old woman with history of COPD, CHF, CAD, Hypertension, MVR, DM, Afib on A/C who presented withy syncope from home and noted to have Cr of 1.5. 1. CKD 2. Syncope 3. COPD 4. CAD/CHF (preserved LVEF) 5. Hypertension 6. DM Plan - cont lasix - monitor renal function - avoid nsaids - monitor weights - pt on 3 l nc at home
[2019-02-11] MEDS: ALBUTEROL SO4 2.5/IPRATROPIUM 0.5 INH SOL 3 ML VIAL.NEB. NEB PRN (21:10)
[2019-02-11] MEDS: ROSUVASTATIN CA 10 MG TABLET (FP) PO SCH (21:30)
[2019-02-11] MEDS ORDERED: INSULIN (NOVOLOG) ASPART 100 UNITS/ML 10ML VIAL ONE (22:27)
[2019-02-12] MEDS ORDERED: LACTULOSE 20 GM/30 ML UDC (FOR ORAL USE ONLY) PO ONE (00:03)
[2019-02-12] MEDS: methylPREDNISolone NA SUCC 40 MG/1 ML VIAL IVPUSH SCH ×3 (01:18→22:04)
[2019-02-12] MEDS: glyBURIDE 5 MG TABLET (UD) PO SCH ×2 (06:27→16:11)
[2019-02-12] MEDS: INSULIN SLIDING SCALE (NOVOLOG) 1 VIAL SQ SCH ×4 (06:27→22:09)
[2019-02-12 07:24] LABS: ALBUMIN 3.3 g/dl (3.4-5.0); BILIRUBIN,TOTAL 0.6 mg/dL (0.2-1); BLOOD UREA NITROGEN 56.9 mg/dL (7-18); CALCIUM 8.1 mg/dL (8.5-10.1); CREATININE 1.3 mg/dL (0.55-1.3); POTASSIUM 3.6 mmol/L (3.5-5.1)
[2019-02-12] MEDS: FUROSEMIDE 40 MG TABLET (FP) PO SCH (09:49)
[2019-02-12] MEDS: ASPIRIN 81 MG CHEWABLE TABLETS PO SCH (09:49)
[2019-02-12] MEDS: DABIGATRAN ETEXILATE MESYLATE 75 MG CAPSULE PO SCH ×2 (09:53→22:04)
[2019-02-12] MEDS: TIOTROPIUM BROMIDE 2.5 MCG (SPIRIVA) RESPIMAT INHALER IH SCH (10:05)
--- NOTE | 2019-02-12 10:44 | PN ---
Progress Note, Physician - Current Medication List Current Medications: Active Medications Albuterol/Ipratropium (Duoneb -) 1 amp NEB Q6H PRN PRN Reason: SHORTNESS OF BREATH Last Admin: 02/11/19 21:10 Dose: 1 amp Aspirin (Asa -) 81 mg PO DAILY [facility] Last Admin: 02/12/19 09:49 Dose: 81 mg Dabigatran (Pradaxa -) 75 mg PO BID [facility] Last Admin: 02/12/19 09:53 Dose: 75 mg Diltiazem HCl (Cardizem Cd -) 120 mg PO DAILY [facility] Last Admin: 02/12/19 09:55 Dose: Not Given Furosemide (Lasix -) 60 mg PO DAILY [facility] Last Admin: 02/12/19 09:49 Dose: 60 mg Glyburide (Diabeta -) 5 mg PO BIDAC [facility] Last Admin: 02/12/19 06:27 Dose: 5 mg Insulin Aspart (Novolog Vial Sliding Scale -) 1 vial SQ [facility]; Protocol Last Admin: 02/12/19 06:27 Dose: 6 unit Methylprednisolone Sodium Succinate (Solu-Medrol -) 40 mg IVPUSH BID [facility] Non-Formulary Medication (Linaclotide [Linzess]) 72 mcg PO DAILY [facility] Rosuvastatin Calcium (Crestor -) 10 mg PO HS [facility] Last Admin: 02/11/19 21:30 Dose: 10 mg Sitagliptin Phosphate (Januvia -) 25 mg PO DAILY@0700 [facility] Last Admin: 02/12/19 06:27 Dose: 25 mg Tiotropium [place] (Spiriva Respimat) 2 puff IH DAILY [facility] Last Admin: 02/12/19 10:05 Dose: 2 puff - Objective Vital Signs: Vital Signs Temperature 98.4 F 02/12/19 08:43 Pulse Rate 53 L 02/12/19 08:43 Respiratory Rate 20 02/12/19 09:00 Blood Pressure 130/69 02/12/19 08:43 O2 Sat by Pulse Oximetry (%) 100 02/12/19 09:00 Cardiovascular: Yes: Pulse Irregular, S1, S2 Respiratory: Yes: Regular, CTA Bilaterally Gastrointestinal: Yes: Normal Bowel Sounds, Soft Labs: CBC, BMP 02/11/19 06:30 02/12/19 05:50 Problem List - Problems (1) Arrhythmia Assessment/Plan: still with periods of bradycardia will need a pacemaker monitor NST Code(s): I49.9 - CARDIAC ARRHYTHMIA, UNSPECIFIED (2) Acute exacerbation of chronic obstructive pulmonary disease (COPD) Assessment/Plan: nebs steroids-Taper pulm on board no need for cta--low suspicion for pe Code(s): J44.1 - CHRONIC OBSTRUCTIVE PULMONARY DISEASE W (ACUTE) EXACERBATION (3) CHF exacerbation Assessment/Plan: po lasix monitor Laboratory Tests 08/31/11 02/10/19 02/11/19 01:50 06:55 06:30 RBC 3.60 BUN 48.3 H 58.3 H Creatinine 1.3 1.4 H Code(s): I50.9 - HEART FAILURE, UNSPECIFIED Qualifiers: Qualified Code(s): I50.9 - Heart failure, unspecified (4) Diabetes mellitus type 2, uncontrolled Assessment/Plan: bgm Code(s): E11.65 - TYPE 2 DIABETES MELLITUS WITH HYPERGLYCEMIA (5) Atrial fibrillation Assessment/Plan: as above monitor rate Code(s): I48.91 - UNSPECIFIED ATRIAL FIBRILLATION Qualifiers: (6) Diabetes Code(s): E11.9 - TYPE 2 DIABETES MELLITUS WITHOUT COMPLICATIONS (7) MURALI (acute kidney injury) Assessment/Plan: Renal consult follow labs cr 1.4 Code(s): N17.9 - ACUTE KIDNEY FAILURE, UNSPECIFIED
--- NOTE | 2019-02-12 10:46 | PN ---
Progress Note, Physician History of Present Illness: pulmonary alert,comfortable at rest,less baumann,-cp - Current Medication List Current Medications: Active Medications Albuterol/Ipratropium (Duoneb -) 1 amp NEB Q6H PRN PRN Reason: SHORTNESS OF BREATH Last Admin: 02/11/19 21:10 Dose: 1 amp Aspirin (Asa -) 81 mg PO DAILY [facility] Last Admin: 02/12/19 09:49 Dose: 81 mg Dabigatran (Pradaxa -) 75 mg PO BID [facility] Last Admin: 02/12/19 09:53 Dose: 75 mg Diltiazem HCl (Cardizem Cd -) 120 mg PO DAILY [facility] Last Admin: 02/12/19 09:55 Dose: Not Given Furosemide (Lasix -) 60 mg PO DAILY [facility] Last Admin: 02/12/19 09:49 Dose: 60 mg Glyburide (Diabeta -) 5 mg PO BIDAC [facility] Last Admin: 02/12/19 06:27 Dose: 5 mg Insulin Aspart (Novolog Vial Sliding Scale -) 1 vial SQ [facility]; Protocol Last Admin: 02/12/19 06:27 Dose: 6 unit Methylprednisolone Sodium Succinate (Solu-Medrol -) 40 mg IVPUSH BID [facility] Non-Formulary Medication (Linaclotide [Linzess]) 72 mcg PO DAILY [facility] Rosuvastatin Calcium (Crestor -) 10 mg PO HS [facility] Last Admin: 02/11/19 21:30 Dose: 10 mg Sitagliptin Phosphate (Januvia -) 25 mg PO DAILY@0700 [facility] Last Admin: 02/12/19 06:27 Dose: 25 mg Tiotropium [place] (Spiriva Respimat) 2 puff IH DAILY [facility] Last Admin: 02/12/19 10:05 Dose: 2 puff - Objective Vital Signs: Vital Signs Temperature 98.4 F 02/12/19 08:43 Pulse Rate 53 L 02/12/19 08:43 Respiratory Rate 20 02/12/19 09:00 Blood Pressure 130/69 02/12/19 08:43 O2 Sat by Pulse Oximetry (%) 100 02/12/19 09:00 Constitutional: Yes: Well Nourished, Calm Eyes: Yes: WNL HENT: Yes: WNL Neck: Yes: WNL Cardiovascular: Yes: Pulse Irregular, S1, S2 Respiratory: Yes: Rales (bibasilar crackles) Gastrointestinal: Yes: Normal Bowel Sounds, Soft Extremities: Yes: WNL Edema: Yes Labs: CBC, BMP 02/11/19 06:30 02/12/19 05:50 Assessment/Plan Problem List - Problems (1) Cardiomegaly Code(s): I51.7 - CARDIOMEGALY (2) CHF exacerbation Code(s): I50.9 - HEART FAILURE, UNSPECIFIED Qualifiers: Heart failure type: unspecified Qualified Code(s): I50.9 - Heart failure, unspecified (3) Diabetes mellitus type 2, uncontrolled Code(s): E11.65 - TYPE 2 DIABETES MELLITUS WITH HYPERGLYCEMIA (4) Syncope and collapse Code(s): R55 - SYNCOPE AND COLLAPSE (5) Atrial fibrillation Code(s): I48.91 - UNSPECIFIED ATRIAL FIBRILLATION Qualifiers: Atrial fibrillation type: chronic (6) CAD S/P percutaneous coronary angioplasty Code(s): I25.10 - ATHSCL HEART DISEASE OF [place] CORONARY ARTERY W/O ANG PCTRS; Z98.61 - CORONARY ANGIOPLASTY STATUS (7) CHF (congestive heart failure) Code(s): I50.9 - HEART FAILURE, UNSPECIFIED (8) COPD (chronic obstructive pulmonary disease) Code(s): J44.9 - CHRONIC OBSTRUCTIVE PULMONARY DISEASE, UNSPECIFIED Qualifiers: COPD type: COPD with acute exacerbation Qualified Code(s): J44.1 - Chronic obstructive pulmonary disease with (acute) exacerbation (9) Dyslipidemia Code(s): E78.5 - HYPERLIPIDEMIA, UNSPECIFIED (10) HTN (hypertension) Code(s): I10 - ESSENTIAL (PRIMARY) HYPERTENSION Qualifiers: Hypertension type: essential hypertension Qualified Code(s): I10 - Essential (primary) hypertension (11) Mitral valve regurgitation Code(s): I34.0 - NONRHEUMATIC MITRAL (VALVE) INSUFFICIENCY Qualifiers: Cardiac valve disease etiology: etiology unspecified Qualified Code(s): I34.0 - Nonrheumatic mitral (valve) insufficiency (12) Acute exacerbation of chronic obstructive pulmonary disease (COPD) Code(s): J44.1 - CHRONIC OBSTRUCTIVE PULMONARY DISEASE W (ACUTE) EXACERBATION Assessment/Plan IMP: COPD/ILD SEVERE PULMONARY HTN MILD-MODERATE AFIB MURALI IV Medrol taper BD TX as ordered Supplemental O2 as needed to maintain saturation Lasix as needed No smoking Daily weights rate control doubt PE,nl D-DIMER,pt on ac chest ct w/o contrast ? ppm DR LORA
--- NOTE | 2019-02-12 11:12 | PN ---
Progress Note, Physician Chief Complaint: syncope History of Present Illness: 83 year old woman with a pmhx of COPD on home O2, chronic diastolic CHF, CAD, htn, MR, Dm, and afib on pradaxa presenting with syncope. Was home and ate liberian food and than while getting up from supine position she felt lightheaded and passed out. Out for 20 seconds and had a tremor when she awoke. Blood sugar was 400 when EMS arrived. - Current Medication List Current Medications: Active Medications Albuterol/Ipratropium (Duoneb -) 1 amp NEB Q6H PRN PRN Reason: SHORTNESS OF BREATH Last Admin: 02/11/19 21:10 Dose: 1 amp Aspirin (Asa -) 81 mg PO DAILY [facility] Last Admin: 02/12/19 09:49 Dose: 81 mg Dabigatran (Pradaxa -) 75 mg PO BID [facility] Last Admin: 02/12/19 09:53 Dose: 75 mg Diltiazem HCl (Cardizem Cd -) 120 mg PO DAILY [facility] Last Admin: 02/12/19 09:55 Dose: Not Given Furosemide (Lasix -) 60 mg PO DAILY [facility] Last Admin: 02/12/19 09:49 Dose: 60 mg Glyburide (Diabeta -) 5 mg PO BIDAC [facility] Last Admin: 02/12/19 06:27 Dose: 5 mg Insulin Aspart (Novolog Vial Sliding Scale -) 1 vial SQ ACHS [facility]; Protocol Last Admin: 02/12/19 11:05 Dose: 6 unit Methylprednisolone Sodium Succinate (Solu-Medrol -) 40 mg IVPUSH BID [facility] Non-Formulary Medication (Linaclotide [Linzess]) 72 mcg PO DAILY [facility] Rosuvastatin Calcium (Crestor -) 10 mg PO HS [facility] Last Admin: 02/11/19 21:30 Dose: 10 mg Sitagliptin Phosphate (Januvia -) 25 mg PO DAILY@0700 [facility] Last Admin: 02/12/19 06:27 Dose: 25 mg Tiotropium [place] (Spiriva Respimat) 2 puff IH DAILY [facility] Last Admin: 02/12/19 10:05 Dose: 2 puff - Objective Vital Signs: Vital Signs Temperature 98.4 F 02/12/19 08:43 Pulse Rate 53 L 02/12/19 08:43 Respiratory Rate 20 02/12/19 09:00 Blood Pressure 130/69 02/12/19 08:43 O2 Sat by Pulse Oximetry (%) 100 02/12/19 09:00 Constitutional: Yes: Well Nourished, No Distress, Calm Eyes: Yes: WNL, Conjunctiva Clear, EOM Intact HENT: Yes: WNL, Normocephalic Neck: Yes: WNL, Supple, Trachea Midline Cardiovascular: Yes: Pulse Irregular, S1, S2 Respiratory: Yes: WNL, Regular, CTA Bilaterally Gastrointestinal: Yes: WNL, Normal Bowel Sounds, Soft ...Rectal Exam: Yes: Deferred Musculoskeletal: Yes: Muscle Pain Extremities: Yes: WNL Edema: No Peripheral Pulses: Left Radial: 1+, Right Radial: 1+, Left Doralis Pedis: 1+, Right Dorsalis Pedis: 1+, Left Femoral: 1+, Right Femoral: 1+ Integumentary: Yes: WNL Neurological: Yes: WNL, Alert, Oriented ...Motor Strength: WNL Psychiatric: Yes: WNL, Alert, Oriented Labs: CBC, BMP 02/11/19 06:30 02/12/19 05:50 Assessment/Plan 83 year old woman with a pmhx of COPD on home O2, chronic diastolic CHF, CAD, htn, MR, Dm, and afib on pradaxa presenting with syncope. Was home and ate liberian food and than while getting up from supine position she felt lightheaded and passed out. Out for 20 seconds and had a tremor when she awoke. Blood sugar was 400 when EMS arrived. The patient is due for a pharmacological nuclear stress test. ILR implantation as per EP Ventricular rates are better controlled in atrial fibrillation.Less ectopyand VT 's noted. The patient is stable. Continue current regimen.
--- NOTE | 2019-02-12 18:40 | PN ---
Progress Note, Physician History of Present Illness: Pt seen and examined at bedside. she is awake and alert. She denies shortness of breath. - Current Medication List Current Medications: Active Medications Albuterol/Ipratropium (Duoneb -) 1 amp NEB Q6H PRN PRN Reason: SHORTNESS OF BREATH Last Admin: 02/11/19 21:10 Dose: 1 amp Aspirin (Asa -) 81 mg PO DAILY [facility] Last Admin: 02/12/19 09:49 Dose: 81 mg Dabigatran (Pradaxa -) 75 mg PO BID [facility] Last Admin: 02/12/19 09:53 Dose: 75 mg Diltiazem HCl (Cardizem Cd -) 120 mg PO DAILY [facility] Last Admin: 02/12/19 09:55 Dose: Not Given Furosemide (Lasix -) 60 mg PO DAILY [facility] Last Admin: 02/12/19 09:49 Dose: 60 mg Glyburide (Diabeta -) 5 mg PO BIDAC [facility] Last Admin: 02/12/19 16:11 Dose: 5 mg Insulin Aspart (Novolog Vial Sliding Scale -) 1 vial SQ [facility]; Protocol Last Admin: 02/12/19 16:17 Dose: 6 unit Methylprednisolone Sodium Succinate (Solu-Medrol -) 40 mg IVPUSH BID [facility] Non-Formulary Medication (Linaclotide [Linzess]) 72 mcg PO DAILY [facility] Rosuvastatin Calcium (Crestor -) 10 mg PO HS [facility] Last Admin: 02/11/19 21:30 Dose: 10 mg Sitagliptin Phosphate (Januvia -) 25 mg PO DAILY@0700 [facility] Last Admin: 02/12/19 06:27 Dose: 25 mg Tiotropium [place] (Spiriva Respimat) 2 puff IH DAILY [facility] Last Admin: 02/12/19 10:05 Dose: 2 puff - Objective Vital Signs: Vital Signs Temperature 97.5 F L 02/12/19 14:00 Pulse Rate 67 02/12/19 14:00 Respiratory Rate 20 02/12/19 14:00 Blood Pressure 157/90 02/12/19 14:00 O2 Sat by Pulse Oximetry (%) 100 02/12/19 09:00 Constitutional: Yes: Calm Eyes: Yes: Conjunctiva Clear HENT: Yes: Atraumatic Neck: Yes: Supple Cardiovascular: Yes: S1, S2 Respiratory: Yes: On Nasal O2 Gastrointestinal: Yes: Soft ...Rectal Exam: Yes: WNL Genitourinary: Yes: WNL Edema: Yes Edema: LLE: Trace, RLE: Trace Neurological: Yes: Oriented Psychiatric: Yes: Oriented Labs: CBC, BMP 02/11/19 06:30 02/12/19 05:50 Problem List - Problems (1) CKD (chronic kidney disease) Code(s): N18.9 - CHRONIC KIDNEY DISEASE, UNSPECIFIED Assessment/Plan Current Medications Generic Name Dose Route Start Last Admin Trade Name Freq PRN Reason Stop Dose Admin Albuterol/Ipratropium 1 amp 02/08/19 22:44 02/11/19 21:10 Duoneb - NEB 1 amp Q6H PRN Administration SHORTNESS OF BREATH Aspirin 81 mg 02/09/19 10:00 02/12/19 09:49 Asa - PO 81 mg DAILY [facility] Administration Dabigatran 75 mg 02/08/19 23:00 02/12/19 09:53 Pradaxa - PO 75 mg BID [facility] Administration Diltiazem HCl 120 mg 02/09/19 10:00 02/12/19 09:55 Cardizem Cd - PO Not Given DAILY [facility] Furosemide 60 mg 02/10/19 13:30 02/12/19 09:49 Lasix - PO 60 mg DAILY [facility] Administration Glyburide 5 mg 02/09/19 07:00 02/12/19 16:11 Diabeta - PO 5 mg BIDAC [facility] Administration Insulin Aspart 1 vial 02/09/19 07:00 02/12/19 16:17 Novolog Vial Sliding Scale - SQ 6 unit ACHS [facility] Administration Protocol Methylprednisolone Sodium Succinate 40 mg 02/12/19 22:00 Solu-Medrol - IVPUSH BID [facility] Non-Formulary Medication 72 mcg 02/09/19 10:00 Linaclotide [Linzess] PO DAILY [facility] Rosuvastatin Calcium 10 mg 02/10/19 22:00 02/11/19 21:30 Crestor - PO 10 mg HS [facility] Administration Sitagliptin Phosphate 25 mg 02/09/19 07:00 02/12/19 06:27 Januvia - PO 25 mg DAILY@0700 [facility] Administration Tiotropium [place] 2 puff 02/09/19 10:00 02/12/19 10:05 Spiriva Respimat IH 2 puff DAILY [facility] Administration 1. CKD 2. Syncope 3. COPD 4. CAD/CHF (preserved LVEF) 5. Hypertension 6. DM Plan - renal function is improving - cont lasix - pleural effusion on ct chest - avoid nsaids - pt on 3 l nc at home
[2019-02-12] MEDS: ALBUTEROL SO4 2.5/IPRATROPIUM 0.5 INH SOL 3 ML VIAL.NEB. NEB PRN (20:45)
[2019-02-12] MEDS: ROSUVASTATIN CA 10 MG TABLET (FP) PO SCH (22:04)
[2019-02-13] MEDS: ACETAMINOPHEN 325 MG TABLET (FP) PO PRN ×2 (00:58→08:19)
[2019-02-13] MEDS: glyBURIDE 5 MG TABLET (UD) PO SCH ×2 (06:14→17:31)
[2019-02-13] MEDS: INSULIN SLIDING SCALE (NOVOLOG) 1 VIAL SQ SCH ×4 (06:15→22:00)
[2019-02-13] MEDS: FUROSEMIDE 40 MG TABLET (FP) PO SCH ×2 (08:19→12:56)
[2019-02-13] MEDS ORDERED: REGADENOSON 0.4 MG/5 ML PRE-FILLED SYRINGE IVPUSH ONE ×2 (10:34→11:00)
[2019-02-13] MEDS: DABIGATRAN ETEXILATE MESYLATE 75 MG CAPSULE PO SCH ×2 (12:56→22:03)
[2019-02-13] MEDS: methylPREDNISolone NA SUCC 40 MG/1 ML VIAL IVPUSH SCH (12:56)
[2019-02-13] MEDS: ASPIRIN 81 MG CHEWABLE TABLETS PO SCH (12:56)
[2019-02-13] MEDS: TIOTROPIUM BROMIDE 2.5 MCG (SPIRIVA) RESPIMAT INHALER IH SCH (12:57)
--- NOTE | 2019-02-13 13:19 | PN ---
Progress Note (short form) - Note Progress Note: PULMONARY Just got back from stress test, feels tired but denies shortness of breath. Vital Signs Period Temp Pulse Resp BP Sys/Lam Pulse Ox Last 24 Hr 97.5 F-98.2 F 62-68 20-21 138-170/74-100 99 Gen: mildly tachypneic at rest Heart: RRR Lung: decreased breath sounds at the bases Abd: soft, nontender Ext: no edema CBC, BMP 02/11/19 06:30 02/12/19 05:50 Active Medications Acetaminophen (Tylenol -) 650 mg PO Q6H PRN PRN Reason: PAIN LEVEL 1-5 Last Admin: 02/13/19 08:19 Dose: 650 mg Albuterol/Ipratropium (Duoneb -) 1 amp NEB Q6H PRN PRN Reason: SHORTNESS OF BREATH Last Admin: 02/12/19 20:45 Dose: 1 amp Aspirin (Asa -) 81 mg PO DAILY [facility] Last Admin: 02/13/19 12:56 Dose: 81 mg Dabigatran (Pradaxa -) 75 mg PO BID [facility] Last Admin: 02/13/19 12:56 Dose: Not Given Diltiazem HCl (Cardizem Cd -) 120 mg PO DAILY [facility] Last Admin: 02/13/19 12:56 Dose: 120 mg Furosemide (Lasix -) 60 mg PO DAILY [facility] Last Admin: 02/13/19 12:56 Dose: Not Given Glyburide (Diabeta -) 5 mg PO BIDAC [facility] Last Admin: 02/13/19 06:14 Dose: Not Given Insulin Aspart (Novolog Vial Sliding Scale -) 1 vial SQ [facility]; Protocol Last Admin: 02/13/19 12:56 Dose: 7 unit Methylprednisolone Sodium Succinate (Solu-Medrol -) 40 mg IVPUSH BID [facility] Last Admin: 02/13/19 12:56 Dose: 40 mg Non-Formulary Medication (Linaclotide [Linzess]) 72 mcg PO DAILY [facility] Rosuvastatin Calcium (Crestor -) 10 mg PO HS [facility] Last Admin: 02/12/19 22:04 Dose: 10 mg Sitagliptin Phosphate (Januvia -) 25 mg PO DAILY@0700 [facility] Last Admin: 02/13/19 06:14 Dose: Not Given Tiotropium [place] (Spiriva Respimat) 2 puff IH DAILY [facility] Last Admin: 02/13/19 12:57 Dose: 2 puff A/P COPD Chronic Hypoxic Respiratory Failure Pulmonary HTN CAD LV Diastolic Dysfunction Aortic Stenosis Atrial Fibrillation Acute on Chronic Renal Failure DM HTN - taper medrol - inhaled bronchodilators - O2 to keep spO2 >90% - continue lasix - monitor urine output, creatinine - rate control - continue anticoagulation
--- NOTE | 2019-02-13 13:42 | PN ---
Progress Note, Physician Chief Complaint: feeling tired telemetry NSVT, af controlled VR History of Present Illness: 83 year old woman with a pmhx of COPD on home O2, chronic diastolic CHF, CAD, htn, MR, Dm, and afib on pradaxa presenting with syncope. Was home and ate [place] food and than while getting up from supine position she felt lightheaded and passed out. Out for 20 seconds and had a tremor when she awoke. Blood sugar was 400 when EMS arrived. pharmacological nuclear stress test done results pending chest CT negative echo 02/09/19 nlef mild to mod . - Current Medication List Current Medications: Active Medications Acetaminophen (Tylenol -) 650 mg PO Q6H PRN PRN Reason: PAIN LEVEL 1-5 Last Admin: 02/13/19 08:19 Dose: 650 mg Albuterol/Ipratropium (Duoneb -) 1 amp NEB Q6H PRN PRN Reason: SHORTNESS OF BREATH Last Admin: 02/12/19 20:45 Dose: 1 amp Aspirin (Asa -) 81 mg PO DAILY [facility] Last Admin: 02/13/19 12:56 Dose: 81 mg Dabigatran (Pradaxa -) 75 mg PO BID [facility] Last Admin: 02/13/19 12:56 Dose: Not Given Diltiazem HCl (Cardizem Cd -) 120 mg PO DAILY [facility] Last Admin: 02/13/19 12:56 Dose: 120 mg Furosemide (Lasix -) 60 mg PO DAILY [facility] Last Admin: 02/13/19 12:56 Dose: Not Given Glyburide (Diabeta -) 5 mg PO BIDAC [facility] Last Admin: 02/13/19 06:14 Dose: Not Given Insulin Aspart (Novolog Vial Sliding Scale -) 1 vial SQ [facility]; Protocol Last Admin: 02/13/19 12:56 Dose: 7 unit Methylprednisolone Sodium Succinate (Solu-Medrol -) 40 mg IVPUSH BID [facility] Last Admin: 02/13/19 12:56 Dose: 40 mg Non-Formulary Medication (Linaclotide [Linzess]) 72 mcg PO DAILY [facility] Rosuvastatin Calcium (Crestor -) 10 mg PO HS [facility] Last Admin: 02/12/19 22:04 Dose: 10 mg Sitagliptin Phosphate (Januvia -) 25 mg PO DAILY@0700 [facility] Last Admin: 02/13/19 06:14 Dose: Not Given Tiotropium [place] (Spiriva Respimat) 2 puff IH DAILY [facility] Last Admin: 02/13/19 12:57 Dose: 2 puff - Objective Vital Signs: Vital Signs Temperature 98 F 02/13/19 08:23 Pulse Rate 68 02/13/19 08:23 Respiratory Rate 20 02/13/19 08:23 Blood Pressure 170/100 02/13/19 08:23 O2 Sat by Pulse Oximetry (%) 99 02/12/19 21:00 Constitutional: Yes: No Distress Eyes: Yes: Conjunctiva Clear, EOM Intact HENT: Yes: Normocephalic Neck: Yes: Supple, Trachea Midline Cardiovascular: Yes: Tachycardia Respiratory: Yes: CTA Bilaterally Gastrointestinal: Yes: Normal Bowel Sounds, Soft Breast(s): Yes: WNL Musculoskeletal: Yes: WNL Extremities: Yes: WNL Edema: No Peripheral Pulses WNL: Yes Labs: CBC, BMP 02/11/19 06:30 02/12/19 05:50 Assessment/Plan 83 year old woman with a pmhx of COPD on home O2, chronic diastolic CHF, CAD, htn, MR, Dm, and afib on pradaxa presenting with syncope. Was home and ate [place] food and than while getting up from supine position she felt lightheaded and passed out. Out for 20 seconds and had a tremor when she awoke. Blood sugar was 400 when EMS arrived. syncope: pharmacological nuclear stress test done results pending chest CT negative echo 02/09/19 nlef mild to mod . ILR implantation today Ventricular rates are better controlled in atrial fibrillation. Still with ectopyand VT's noted. Does not meet MUSTT criteria for NSVT EP study at this time. Continue current regimen. Stable for ILR.
[2019-02-13] MEDS ORDERED: LIDOCAINE 1%-EPI 1:100,000 30 ML MDV IJ ONE (14:28)
--- NOTE | 2019-02-13 14:49 | PN ---
Progress Note, Physician Chief Complaint: patient seen and examined complaining at night she had left sided lower back and hip pain going down her leg - Current Medication List Current Medications: Active Medications Acetaminophen (Tylenol -) 650 mg PO Q6H PRN PRN Reason: PAIN LEVEL 1-5 Last Admin: 02/13/19 08:19 Dose: 650 mg Albuterol/Ipratropium (Duoneb -) 1 amp NEB Q6H PRN PRN Reason: SHORTNESS OF BREATH Last Admin: 02/12/19 20:45 Dose: 1 amp Aspirin (Asa -) 81 mg PO DAILY [facility] Last Admin: 02/13/19 12:56 Dose: 81 mg Dabigatran (Pradaxa -) 75 mg PO BID [facility] Last Admin: 02/13/19 12:56 Dose: Not Given Diltiazem HCl (Cardizem Cd -) 120 mg PO DAILY [facility] Last Admin: 02/13/19 12:56 Dose: 120 mg Furosemide (Lasix -) 60 mg PO DAILY [facility] Last Admin: 02/13/19 12:56 Dose: Not Given Glyburide (Diabeta -) 5 mg PO BIDAC [facility] Last Admin: 02/13/19 06:14 Dose: Not Given Insulin Aspart (Novolog Vial Sliding Scale -) 1 vial SQ [facility]; Protocol Last Admin: 02/13/19 12:56 Dose: 7 unit Non-Formulary Medication (Linaclotide [Linzess]) 72 mcg PO DAILY [facility] Rosuvastatin Calcium (Crestor -) 10 mg PO HS [facility] Last Admin: 02/12/19 22:04 Dose: 10 mg Sitagliptin Phosphate (Januvia -) 25 mg PO DAILY@0700 [facility] Last Admin: 02/13/19 06:14 Dose: Not Given Tiotropium [place] (Spiriva Respimat) 2 puff IH DAILY [facility] Last Admin: 02/13/19 12:57 Dose: 2 puff - Objective Vital Signs: Vital Signs Temperature 98 F 02/13/19 08:23 Pulse Rate 68 02/13/19 08:23 Respiratory Rate 20 02/13/19 08:23 Blood Pressure 170/100 02/13/19 08:23 O2 Sat by Pulse Oximetry (%) 99 02/12/19 21:00 Constitutional: Yes: Calm Cardiovascular: Yes: Regular Rate and Rhythm, Murmur, S1, S2 Respiratory: Yes: CTA Bilaterally, Diminished Gastrointestinal: Yes: Normal Bowel Sounds, Soft Labs: CBC, BMP 02/11/19 06:30 02/12/19 05:50 Problem List - Problems (1) Syncope and collapse Assessment/Plan: telemetry echo severe pulm htn, mild to moderate aortic stenosis carotid doppler noted for stenosis - vascuklar consult cardiology eval noted will stop digoxin chest ct showed cardiomegaly with small pericardial effsuion stress test done no ischemia noted Code(s): R55 - SYNCOPE AND COLLAPSE (2) Atrial fibrillation Assessment/Plan: pradaxa and diltizem Code(s): I48.91 - UNSPECIFIED ATRIAL FIBRILLATION Qualifiers: Atrial fibrillation type: chronic (3) CHF (congestive heart failure) Assessment/Plan: iv lasix to po lasix garcia cath monitor i/o daily weights Code(s): I50.9 - HEART FAILURE, UNSPECIFIED (4) COPD (chronic obstructive pulmonary disease) Assessment/Plan: taper medrol dose Code(s): J44.9 - CHRONIC OBSTRUCTIVE PULMONARY DISEASE, UNSPECIFIED Qualifiers: COPD type: COPD with acute exacerbation Qualified Code(s): J44.1 - Chronic obstructive pulmonary disease with (acute) exacerbation (5) Leg pain Assessment/Plan: xray of hip and lower back ordered Code(s): M79.606 - PAIN IN LEG, UNSPECIFIED Qualifiers: Laterality: left Qualified Code(s): M79.605 - Pain in left leg
[2019-02-13] MEDS ORDERED: LIDOCAINE 1%/EPI 1:100000 (20 ML MULTI DOSE VIAL) INF ONE (15:14)
--- NOTE | 2019-02-13 15:22 | PROC ---
Procedure Note Procedure: Implantable loop recorder Implant Incision and Drainage Indication/Location: syncope/left chest Risks and Benefits Explained: Yes Consent on Chart: Yes Betadine cleansed: Yes Anesthesia: 1% Lidocaine w/ Epi Sterile Dressing Applied: Yes - Remarks Remarks: s/p ILR implant, left chest. MRI compatible device sterile dressing in place Plan: routine post procedure care return to floor do not get area wet for 5 days remove overlying surgical dressing tomorrow am (leave steri-strips and dermabond in place)
[2019-02-13] MEDS ORDERED: PT OWN MED DRAWER 7, Y5N ONE (16:28)
--- NOTE | 2019-02-13 19:27 | PN ---
Progress Note, Physician Chief Complaint: Cardiac Electrophysiology f/u Seen and evaluated at 2 pm History of Present Illness: Ms. Tapia is a pleasant 83 year old female with a pmh of Atrial fibrillation on pradaxa, CAD, HI, s/p PCI x 2 (most recent [facility] 2017 with patent stents), htn , inc chol, copd on home o2 who presented yesterday for evaluation due to witnessed syncopal event at home, found to have NSVT, normal LVEF - Current Medication List Current Medications: Active Medications Acetaminophen (Tylenol -) 650 mg PO Q6H PRN PRN Reason: PAIN LEVEL 1-5 Last Admin: 02/13/19 08:19 Dose: 650 mg Albuterol/Ipratropium (Duoneb -) 1 amp NEB Q6H PRN PRN Reason: SHORTNESS OF BREATH Last Admin: 02/12/19 20:45 Dose: 1 amp Aspirin (Asa -) 81 mg PO DAILY [facility] Last Admin: 02/13/19 12:56 Dose: 81 mg Dabigatran (Pradaxa -) 75 mg PO BID [facility] Last Admin: 02/13/19 12:56 Dose: Not Given Diltiazem HCl (Cardizem Cd -) 120 mg PO DAILY [facility] Last Admin: 02/13/19 12:56 Dose: 120 mg Furosemide (Lasix -) 60 mg PO DAILY [facility] Last Admin: 02/13/19 12:56 Dose: Not Given Glyburide (Diabeta -) 5 mg PO BIDAC [facility] Last Admin: 02/13/19 17:31 Dose: 5 mg Insulin Aspart (Novolog Vial Sliding Scale -) 1 vial SQ ACHS [facility]; Protocol Last Admin: 02/13/19 17:31 Dose: Not Given Methylprednisolone Sodium Succinate (Solu-Medrol -) 40 mg IVPUSH DAILY [facility] Non-Formulary Medication (Linaclotide [Linzess]) 72 mcg PO DAILY [facility] Rosuvastatin Calcium (Crestor -) 10 mg PO HS [facility] Last Admin: 02/12/19 22:04 Dose: 10 mg Sitagliptin Phosphate (Januvia -) 25 mg PO DAILY@0700 [facility] Last Admin: 02/13/19 06:14 Dose: Not Given Tiotropium [place] (Spiriva Respimat) 2 puff IH DAILY [facility] Last Admin: 02/13/19 12:57 Dose: 2 puff - Objective Vital Signs: Vital Signs Temperature 98.3 F 02/13/19 17:00 Pulse Rate 69 02/13/19 17:00 Respiratory Rate 20 02/13/19 17:00 Blood Pressure 158/58 L 02/13/19 17:00 O2 Sat by Pulse Oximetry (%) 99 02/13/19 09:00 Constitutional: Yes: Well Nourished Eyes: Yes: EOM Intact HENT: Yes: WNL, Atraumatic Neck: Yes: Supple Cardiovascular: Yes: Pulse Irregular, Murmur Respiratory: Yes: CTA Bilaterally Gastrointestinal: Yes: WNL, Normal Bowel Sounds, Soft Extremities: Yes: WNL Peripheral Pulses WNL: Yes Labs: CBC, BMP 02/11/19 06:30 02/12/19 05:50 Problem List - Problems (1) Syncope and collapse Code(s): R55 - SYNCOPE AND COLLAPSE (2) Atrial fibrillation Code(s): I48.91 - UNSPECIFIED ATRIAL FIBRILLATION Qualifiers: Atrial fibrillation type: chronic (3) CAD S/P percutaneous coronary angioplasty Code(s): I25.10 - ATHSCL HEART DISEASE OF [place] CORONARY ARTERY W/O ANG PCTRS; Z98.61 - CORONARY ANGIOPLASTY STATUS (4) NSVT (nonsustained ventricular tachycardia) Code(s): I47.2 - VENTRICULAR TACHYCARDIA Assessment/Plan Ms. Tapia is a pleasant 83 year old female with a pmh of Atrial fibrillation on pradaxa, CAD, HI, s/p PCI x 2 (most recent [facility] 2016 with patent stents), htn , inc chol, copd on home o2 who presented yesterday for evaluation due to witnessed syncopal event at home, found to have NSVT 1. NSVT: reduced burden. normal LVEF. lexiscan stress test done, results pending. no indication for ICD at this time. also not indicated for EPS per MUSTT criteria given normal LVEF. p/w syncope with multiple comorbidities. pt reminds me today that she also did not wear her oxygen when she had passed out. agreeable to ILR for evaluation. r/b/a discussed. all questions answered. consent signed and placed in chart. pradaxa held this am. - f/u nuclear stress test - for ILR today - keep k 4-4.5, mg 2-2.5 - would increase av trey blocking therapy as feasible, moderately elevated bp noted 2. AF: on pradaxa. on cardizem. pradaxa held. - resume pradaxa tonight - pt aware that may benefit from ppm in the future but no urgent indication at this time 3. Syncope: unclear. pt was hyperglycemic and was not wearing home o2. no recurrent syncope during hospitalization. newly diagnosed severe pulm htn. - plan as above 4. Bradycardia: as above. no indication for urgent ppm at this time. however pt aware that may benefit from ppm in the future should she have persistent bradycardia. Case d/w Dr. Keyes
--- NOTE | 2019-02-13 20:11 | OP ---
DATE OF OPERATION: 02/13/2019 PROCEDURE: Implantable loop recorder implant. INDICATION: Syncope and NSVT. The anterior thorax was prepped and draped in a sterile fashion. Anesthesia was present. Local anesthesia with 50/50 lidocaine/epinephrine mixture was infiltrated over the anticipated subcutaneous tract in the left 4th intercostal space near the sternum. A "stab " incision was created over the left 4th intercostal/ parasternal area. An implantable loop recorder was then advanced subcutaneously in the horizontal direction using the injection instrument. Hemostasis was achieved. The incision was closed with a running subcuticular 4-0 Vicryl. Dermabond was placed over the incision site. Steri-Strips and a sterile bandage were placed. No acute complications were evident. Device interrogation demonstrated excellent sensed R wave, 1.0 mV. The patient tolerated the procedure well. Molly [id number] MTDD
[2019-02-13] MEDS: ROSUVASTATIN CA 10 MG TABLET (FP) PO SCH (22:00)
[2019-02-14] MEDS ORDERED: INSULIN (NOVOLOG) ASPART 100 UNITS/ML 10ML VIAL SQ ONE (00:06)
[2019-02-14] MEDS: MELATONIN 5 MG TABLETS PO PRN ×2 (03:01→22:02)
[2019-02-14] MEDS: glyBURIDE 5 MG TABLET (UD) PO SCH ×2 (06:07→16:41)
[2019-02-14] MEDS: INSULIN SLIDING SCALE (NOVOLOG) 1 VIAL SQ SCH ×4 (06:07→22:02)
--- NOTE | 2019-02-14 08:18 | PN ---
Progress Note, Physician Chief Complaint: AWAKE ALERT SONS BEDSIDE CXR ORDERED THIS MORNING NORMAL PATIENT C/O COUGH - Current Medication List Current Medications: Active Medications Acetaminophen (Tylenol -) 650 mg PO Q6H PRN PRN Reason: PAIN LEVEL 1-5 Last Admin: 02/13/19 08:19 Dose: 650 mg Albuterol/Ipratropium (Duoneb -) 1 amp NEB Q6H PRN PRN Reason: SHORTNESS OF BREATH Last Admin: 02/12/19 20:45 Dose: 1 amp Aspirin (Asa -) 81 mg PO DAILY [facility] Last Admin: 02/13/19 12:56 Dose: 81 mg Dabigatran (Pradaxa -) 75 mg PO BID [facility] Last Admin: 02/13/19 22:03 Dose: 75 mg Diltiazem HCl (Cardizem Cd -) 120 mg PO DAILY [facility] Last Admin: 02/13/19 12:56 Dose: 120 mg Furosemide (Lasix -) 60 mg PO DAILY [facility] Last Admin: 02/13/19 12:56 Dose: Not Given Glyburide (Diabeta -) 5 mg PO BIDAC [facility] Last Admin: 02/14/19 06:07 Dose: Not Given Insulin Aspart (Novolog Vial Sliding Scale -) 1 vial SQ [facility]; Protocol Last Admin: 02/14/19 06:07 Dose: Not Given Melatonin (Melatonin) 5 mg PO HS PRN PRN Reason: INSOMNIA Last Admin: 02/14/19 03:01 Dose: 5 mg Methylprednisolone Sodium Succinate (Solu-Medrol -) 40 mg IVPUSH DAILY [facility] Rosuvastatin Calcium (Crestor -) 10 mg PO HS [facility] Last Admin: 02/13/19 22:00 Dose: 10 mg Sitagliptin Phosphate (Januvia -) 25 mg PO DAILY@0700 [facility] Last Admin: 02/14/19 06:07 Dose: Not Given Tiotropium [place] (Spiriva Respimat) 2 puff IH DAILY [facility] Last Admin: 02/13/19 12:57 Dose: 2 puff - Objective Vital Signs: Vital Signs Temperature 97.5 F L 02/14/19 05:00 Pulse Rate 66 02/14/19 05:00 Respiratory Rate 20 02/14/19 05:00 Blood Pressure 152/65 02/14/19 05:00 O2 Sat by Pulse Oximetry (%) 93 L 02/13/19 21:00 Constitutional: Yes: Mild Distress Cardiovascular: Yes: Pulse Irregular Respiratory: Yes: Cough, Wheezes Gastrointestinal: Yes: Soft Genitourinary: Yes: WNL Musculoskeletal: Yes: Back Pain Edema: Yes Edema: LLE: Trace, RLE: Trace Integumentary: Yes: Venous Stasis Changes Neurological: Yes: Pre-Existing Deficit ...Motor Strength: LLE, RLE Psychiatric: Yes: WNL Labs: CBC, BMP 02/11/19 06:30 02/13/19 22:20 Problem List - Problems (1) MURALI (acute kidney injury) Code(s): N17.9 - ACUTE KIDNEY FAILURE, UNSPECIFIED (2) Acute exacerbation of chronic obstructive pulmonary disease (COPD) Code(s): J44.1 - CHRONIC OBSTRUCTIVE PULMONARY DISEASE W (ACUTE) EXACERBATION (3) Arrhythmia Code(s): I49.9 - CARDIAC ARRHYTHMIA, UNSPECIFIED (4) CHF exacerbation Code(s): I50.9 - HEART FAILURE, UNSPECIFIED Qualifiers: Heart failure type: unspecified Qualified Code(s): I50.9 - Heart failure, unspecified (5) CKD (chronic kidney disease) Code(s): N18.9 - CHRONIC KIDNEY DISEASE, UNSPECIFIED (6) Cardiomegaly Code(s): I51.7 - CARDIOMEGALY (7) Carotid stenosis Code(s): I65.29 - OCCLUSION AND STENOSIS OF UNSPECIFIED CAROTID ARTERY (8) Diabetes mellitus type 2, uncontrolled Code(s): E11.65 - TYPE 2 DIABETES MELLITUS WITH HYPERGLYCEMIA (9) Syncope and collapse Code(s): R55 - SYNCOPE AND COLLAPSE (10) Atrial fibrillation Code(s): I48.91 - UNSPECIFIED ATRIAL FIBRILLATION Qualifiers: Atrial fibrillation type: chronic (11) CAD S/P percutaneous coronary angioplasty Code(s): I25.10 - ATHSCL HEART DISEASE OF [place] CORONARY ARTERY W/O ANG PCTRS; Z98.61 - CORONARY ANGIOPLASTY STATUS (12) Mitral valve regurgitation Code(s): I34.0 - NONRHEUMATIC MITRAL (VALVE) INSUFFICIENCY Qualifiers: Cardiac valve disease etiology: etiology unspecified Qualified Code(s): I34.0 - Nonrheumatic mitral (valve) insufficiency (13) Smoking Code(s): F17.200 - NICOTINE DEPENDENCE, UNSPECIFIED, UNCOMPLICATED Assessment/Plan COPD EXACERBATION TAPER STEROIDS CXR NO ACUTE CHANGES 02 SUPPORT NEBS/INHALERS SMOKING CESSATION CARDIAC MONITORING CLEARED OFF TELEMETRY PT EVAL, OOB TO CHAIR MAY BENEFIT FROM SNF PLACEMENT COUGH SUPPRESSANT
[2019-02-14] MEDS ORDERED: PT OWN MED DRAWER 7, Y5N ONE (09:14)
--- NOTE | 2019-02-14 09:27 | PN ---
Progress Note, Physician Chief Complaint: feeling tired telemetry NSVT, af controlled VR History of Present Illness: 83 year old woman with a pmhx of COPD on home O2, chronic diastolic CHF, CAD, htn, MR, Dm, and afib on pradaxa presenting with syncope. Was home and ate [place]ong konger food and than while getting up from supine position she felt lightheaded and passed out. Out for 20 seconds and had a tremor when she awoke. Blood sugar was 400 when EMS arrived. pharmacological nuclear stress test fixed inferolateral scar. chest CT negative echo 02/09/19 nlef mild to mod , severe pulm htn - Current Medication List Current Medications: Active Medications Acetaminophen (Tylenol -) 650 mg PO Q6H PRN PRN Reason: PAIN LEVEL 1-5 Last Admin: 02/13/19 08:19 Dose: 650 mg Albuterol/Ipratropium (Duoneb -) 1 amp NEB Q6H PRN PRN Reason: SHORTNESS OF BREATH Last Admin: 02/12/19 20:45 Dose: 1 amp Aspirin (Asa -) 81 mg PO DAILY [facility] Last Admin: 02/13/19 12:56 Dose: 81 mg Dabigatran (Pradaxa -) 75 mg PO BID [facility] Last Admin: 02/13/19 22:03 Dose: 75 mg Diltiazem HCl (Cardizem Cd -) 120 mg PO DAILY [facility] Last Admin: 02/13/19 12:56 Dose: 120 mg Furosemide (Lasix -) 60 mg PO DAILY [facility] Last Admin: 02/13/19 12:56 Dose: Not Given Glyburide (Diabeta -) 5 mg PO BIDAC [facility] Last Admin: 02/14/19 06:07 Dose: Not Given Insulin Aspart (Novolog Vial Sliding Scale -) 1 vial SQ ACHS [facility]; Protocol Last Admin: 02/14/19 06:07 Dose: Not Given Melatonin (Melatonin) 5 mg PO HS PRN PRN Reason: INSOMNIA Last Admin: 02/14/19 03:01 Dose: 5 mg Methylprednisolone Sodium Succinate (Solu-Medrol -) 40 mg IVPUSH DAILY [facility] Rosuvastatin Calcium (Crestor -) 10 mg PO HS [facility] Last Admin: 02/13/19 22:00 Dose: 10 mg Sitagliptin Phosphate (Januvia -) 25 mg PO DAILY@0700 [facility] Last Admin: 02/14/19 06:07 Dose: Not Given Tiotropium [place] (Spiriva Respimat) 2 puff IH DAILY [facility] Last Admin: 02/13/19 12:57 Dose: 2 puff - Objective Vital Signs: Vital Signs Temperature 97.5 F L 02/14/19 05:00 Pulse Rate 66 02/14/19 05:00 Respiratory Rate 20 02/14/19 05:00 Blood Pressure 152/65 02/14/19 05:00 O2 Sat by Pulse Oximetry (%) 93 L 02/13/19 21:00 Constitutional: Yes: No Distress, Calm Eyes: Yes: Conjunctiva Clear, EOM Intact HENT: Yes: Normocephalic Neck: Yes: Trachea Midline Cardiovascular: Yes: Regular Rate and Rhythm, Pulse Irregular, S1, S2 Respiratory: Yes: CTA Bilaterally Gastrointestinal: Yes: Normal Bowel Sounds, Soft Musculoskeletal: Yes: WNL Extremities: Yes: WNL Edema: No Labs: CBC, BMP 02/11/19 06:30 02/13/19 22:20 Assessment/Plan 83 year old woman with a pmhx of COPD on home O2, chronic diastolic CHF, CAD, htn, MR, Dm, and afib on pradaxa presenting with syncope. Was home and ate [place] food and than while getting up from supine position she felt lightheaded and passed out. Out for 20 seconds and had a tremor when she awoke. Blood sugar was 400 when EMS arrived. syncope: pharmacological nuclear stress test done fixed inferolateral defect. chest CT negative echo 02/09/19 nlef mild to mod , severe pulm htn. ILR implantation done. Ventricular rates are better controlled in atrial fibrillation. Still with ectopy and VT's noted. Does not meet MUSTT criteria for NSVT EP study at this time. Continue current regimen. Stable post ILR. postop care per Dr Castaneda's note. afib VR controlled, continue pradaxa. CHF chronic diastolic chf stable. continue current regimen. Pulm htn unclear etiology chest CT unremarkable getting AC, doubt CTEPH. MR is mild at present, echo does not show significant valvular disease. stable to DC telemetry. follow up as outpatient with Dr Mukherjee [phone]
[2019-02-14] MEDS ORDERED: methylPREDNISolone NA SUCC 40 MG/1 ML VIAL IVPUSH SCH (10:00)
[2019-02-14] MEDS: FUROSEMIDE 40 MG TABLET (FP) PO SCH (10:40)
[2019-02-14] MEDS: ASPIRIN 81 MG CHEWABLE TABLETS PO SCH (10:41)
[2019-02-14] MEDS: DABIGATRAN ETEXILATE MESYLATE 75 MG CAPSULE PO SCH ×2 (10:41→22:02)
[2019-02-14] MEDS: TIOTROPIUM BROMIDE 2.5 MCG (SPIRIVA) RESPIMAT INHALER IH SCH (10:42)
[2019-02-14] MEDS ORDERED: INSULIN (LEVEMIR) 100 UNITS/ML UNITS SQ ONE (11:44)
[2019-02-14] MEDS ORDERED: INSULIN (NOVOLOG) ASPART 100 UNITS/ML 10ML VIAL ONE (11:44)
[2019-02-14] MEDS ORDERED: ALBUTEROL SO4 0.042% IH SOL 1.25 MG/3 ML VIAL.NEB NEB PRN (12:36)
--- NOTE | 2019-02-14 12:36 | PN ---
Progress Note (short form) - Note Progress Note: PULMONARY Some shortness of breath and chest congestion. Vital Signs Period Temp Pulse Resp BP Sys/Lam Pulse Ox Last 24 Hr 97.5 F-98.3 F 66-73 20-20 146-158/58-76 93-93 Gen: mildly tachypneic at rest Heart: RRR Lung: decreased breath sounds at the bases Abd: soft, nontender Ext: no edema CBC, BMP 02/11/19 06:30 02/13/19 22:20 Active Medications Acetaminophen (Tylenol -) 650 mg PO Q6H PRN PRN Reason: PAIN LEVEL 1-5 Last Admin: 02/13/19 08:19 Dose: 650 mg Albuterol/Ipratropium (Duoneb -) 1 amp NEB Q6H PRN PRN Reason: SHORTNESS OF BREATH Last Admin: 02/12/19 20:45 Dose: 1 amp Aspirin (Asa -) 81 mg PO DAILY [facility] Last Admin: 02/14/19 10:41 Dose: 81 mg Dabigatran (Pradaxa -) 75 mg PO BID [facility] Last Admin: 02/14/19 10:41 Dose: 75 mg Diltiazem HCl (Cardizem Cd -) 120 mg PO DAILY [facility] Last Admin: 02/14/19 10:41 Dose: 120 mg Furosemide (Lasix -) 60 mg PO DAILY [facility] Last Admin: 02/14/19 10:40 Dose: 60 mg Glyburide (Diabeta -) 5 mg PO BIDAC [facility] Last Admin: 02/14/19 06:07 Dose: Not Given Insulin Aspart (Novolog Vial Sliding Scale -) 1 vial SQ [facility]; Protocol Last Admin: 02/14/19 11:08 Dose: 4 unit Melatonin (Melatonin) 5 mg PO HS PRN PRN Reason: INSOMNIA Last Admin: 02/14/19 03:01 Dose: 5 mg Methylprednisolone Sodium Succinate (Solu-Medrol -) 40 mg IVPUSH DAILY [facility] Last Admin: 02/14/19 10:40 Dose: 40 mg Rosuvastatin Calcium (Crestor -) 10 mg PO HS [facility] Last Admin: 02/13/19 22:00 Dose: 10 mg Sitagliptin Phosphate (Januvia -) 25 mg PO DAILY@0700 [facility] Last Admin: 02/14/19 06:07 Dose: Not Given Tiotropium [place] (Spiriva Respimat) 2 puff IH DAILY [facility] Last Admin: 02/14/19 10:42 Dose: 2 puff A/P COPD Chronic Hypoxic Respiratory Failure Pulmonary HTN CAD LV Diastolic Dysfunction Aortic Stenosis Atrial Fibrillation Acute on Chronic Renal Failure DM HTN - continue medrol - inhaled bronchodilators - O2 to keep spO2 >90% - continue lasix - monitor urine output, creatinine - rate control - continue anticoagulation
--- NOTE | 2019-02-14 13:01 | PN ---
Progress Note (short form) - Note Progress Note: Renal follow up for MURALI/CKD Seen and examined at the bedside has some mild shortness of breath no chest pain, fever, chills, orthopnea making urine Vital Signs Temperature 98 F 02/14/19 09:00 Pulse Rate 70 02/14/19 09:00 Respiratory Rate 20 02/14/19 09:00 Blood Pressure 146/72 02/14/19 09:00 O2 Sat by Pulse Oximetry (%) 93 L 02/14/19 09:00 Intake & Output 02/11/19 02/12/19 02/13/19 02/14/19 23:59 23:59 23:59 23:59 Intake Total 1230 1220 460 480 Balance 1230 1220 460 480 Weight 57.153 kg 56.971 kg 56.245 kg 56.336 kg NAD awake and alert neck supple, no JVD RRR, no M/R CTA soft NT/ND no LE edema, clubbing or cyanosis CBC, BMP 02/11/19 06:30 02/13/19 22:20 Current Medications Acetaminophen (Tylenol -) 650 mg PO Q6H PRN PRN Reason: PAIN LEVEL 1-5 Last Admin: 02/13/19 08:19 Dose: 650 mg Albuterol Sulfate (Ventolin 0.042trength) -) 1 amp NEB Q4H PRN PRN Reason: SHORT OF BREATH/WHEEZING Albuterol/Ipratropium (Duoneb -) 1 amp NEB RTID [facility] Aspirin (Asa -) 81 mg PO DAILY [facility] Last Admin: 02/14/19 10:41 Dose: 81 mg Dabigatran (Pradaxa -) 75 mg PO BID [facility] Last Admin: 02/14/19 10:41 Dose: 75 mg Diltiazem HCl (Cardizem Cd -) 120 mg PO DAILY [facility] Last Admin: 02/14/19 10:41 Dose: 120 mg Furosemide (Lasix -) 60 mg PO DAILY [facility] Last Admin: 02/14/19 10:40 Dose: 60 mg Glyburide (Diabeta -) 5 mg PO BIDAC [facility] Last Admin: 02/14/19 06:07 Dose: Not Given Insulin Aspart (Novolog Vial Sliding Scale -) 1 vial SQ ACHS [facility]; Protocol Last Admin: 02/14/19 11:08 Dose: 4 unit Melatonin (Melatonin) 5 mg PO HS PRN PRN Reason: INSOMNIA Last Admin: 02/14/19 03:01 Dose: 5 mg Methylprednisolone Sodium Succinate (Solu-Medrol -) 40 mg IVPUSH DAILY [facility] Last Admin: 02/14/19 10:40 Dose: 40 mg Rosuvastatin Calcium (Crestor -) 10 mg PO HS [facility] Last Admin: 02/13/19 22:00 Dose: 10 mg Sitagliptin Phosphate (Januvia -) 25 mg PO DAILY@0700 [facility] Last Admin: 02/14/19 06:07 Dose: Not Given Tiotropium [place] (Spiriva Respimat) 2 puff IH DAILY [facility] Last Admin: 02/14/19 10:42 Dose: 2 puff 83 year old woman with history of COPD, CHF, CAD, Hypertension, MVR, DM, Afib on A/C who presented withy syncope from home and noted to have Cr of 1.5. 1. MURALI 2. Syncope 3. COPD 4. CAD/CHF (preserved LVEF) 5. Hypertension 6. Elevated serum bicarb due to metabolic compensation for respiratory acidosis vs. contraction alkalosis 7. DM type 2 No recent labs noted, clinically stable and w/o evidence of overt volume overload CXR done this am shows no effusions or congestion Continue Lasix 60mg PO daily Trend renal function and electrolytes daily Would avoid NSAIDs, IV contrast, Fleet enemas continue steroids as per pulmonary Luis Orlando DO
[2019-02-14] MEDS: ALBUTEROL SO4 2.5/IPRATROPIUM 0.5 INH SOL 3 ML VIAL.NEB. NEB SCH ×2 (14:00→20:40)
--- NOTE | 2019-02-14 15:31 | CONSULT ---
- Consultation REQUESTING PROVIDER: CONSULT REQUEST: We have been asked to surgically evaluate this patient for carotid stenosis. PCP:Aman Russell HISTORY OF PRESENT ILLNESS: This is a 83 year old woman with a past medical history of COPD (3L home O2), CHF, CAD, HTN, Mitral Valve Regurgitation, Diabetes, and Afib(on pradaxa). Who presented to the ED for evaluation of a syncopal episode last week. The patient reports eating with her LAB COURIER earlier in the day. The patient reports that she was getting up from a supine position when she felt lightheaded and syncopized, it was witnessed by family. Per the ED record: As per the family, the patient was sitting up when she suddenly slumped over and was passed out for approximately 20 seconds. Family states that the patient had a tremor and woke up back to her baseline. Patient denies any tongue bite and currently states that she has some lightheadedness. Family states that the patient has had increased shortness of breath for the past 6 weeks and has been going back and forth between 3 and 4 L of O2 at home. Family also notes that the patients blood sugar was 400 when EMS arrived. Patient denies headache. Denies fever, chills. Denies chest pain. Denies nausea , vomiting, diarrhea, abdominal pain. Upon inpatient work up, syncope appears to be cardiac in nature- pharmacological nuclear stress test done fixed inferolateral defect. chest CT negative. echo 02/09/19 nlef mild to mod , Still with ectopy and VT's noted. severe pulm htn. ILR implantation done 02/13, Ventricular rates are better controlled in atrial fibrillation. History Source: Patient, Family Member Limitations to Obtaining History: No Limitations - Past Medical History Cardiovascular: Yes: AFIB, CAD (S/P STENTING), CHF, HTN, Hyperlipdemia Pulmonary: Yes: COPD, O2 Dependent Musculoskeletal: Yes: Chronic low back pain Endocrine: Yes: Diabetes Mellitus - Smoking History Smoking history: Former smoker Have you smoked in the past 12 months: No Aproximately how many cigarettes per day: 0 If you are a former smoker, when did you quit?: 2 years ago - Alcohol/Substance Use Hx Alcohol Use: No History of Substance Use: reports: None - Social History Usual Living Arrangement: Yes: With Child ADL: Family Assistance ([employer]ER) History of Recent Travel: No Home Medications - Allergies Allergies/Adverse Reactions: Allergies Allergy/AdvReac Type Severity Reaction Status Date / Time No Known Allergies Allergy Verified 02/08/19 18:16 - Home Medications Home Medications: Ambulatory Orders Rosuvastatin [Crestor -] 20 mg PO DAILY 11/15/16 Albuterol 2.5/Ipratropium 0.5 [Duoneb -] 1 amp NEB QIDR amp 11/19/16 Aspirin [ASA -] 81 mg PO DAILY #30 tab.chew 11/19/16 Cholecalciferol (Vitamin D3) [Optimal D3] 50,000 unit PO WEEKLY 06/22/17 Dabigatran Etexilate Mesylate [Pradaxa -] 75 mg PO BID 06/22/17 Sitagliptin Phosphate [Januvia -] 50 mg PO DAILY@0700 06/22/17 Albuterol Sulfate 0.042% [Ventolin 0.042% (Half-Strength) -] 1 amp NEB Q4H PRN amp 06/29/17 Insulin Sliding Scale [Novolog Vial Sliding Scale -] 1 vial SQ ACHS units 06/29 Acetaminophen [Tylenol .Extra-Strength -] 1,000 mg PO Q8H PRN tablet 07/07/17 Diltiazem Cd [Cardizem Cd -] 120 mg PO DAILY cap.cd.24h 07/07/17 Insulin (Levemir) [Levemir Vial] 10 units SQ AM ml 07/07/17 Tiotropium [place] [Spiriva] 1 puff IH DAILY cap 07/07/17 Digoxin [Lanoxin -] 0.125 mg PO HS 02/08/19 Furosemide [Lasix -] 60 mg PO DAILY 02/08/19 Glyburide 5 mg PO BID 02/08/19 Linaclotide [Linzess] 72 mcg PO DAILY 02/08/19 Family Medical History Family History: Unable to Obtain Review of Systems - Review of Systems Constitutional: reports: Lethargy Eyes: reports: No Symptoms HENT: reports: No Symptoms Neck: reports: No Symptoms Cardiovascular: reports: Shortness of Breath Respiratory: reports: SOB, SOB on Exertion Gastrointestinal: reports: No Symptoms Genitourinary: reports: No Symptoms Breasts: reports: No Symptoms Reported Musculoskeletal: reports: No Symptoms Integumentary: reports: No Symptoms Neurological: reports: Dizziness, Syncope, Unsteady Gait, Weakness Endocrine: reports: No Symptoms Hematology/Lymphatic: reports: No Symptoms Psychiatric: reports: No Symptoms Pain Intensity: 0 Physical Examination Vital Signs: Vital Signs Temperature 97.3 F L 02/08/19 19:34 Pulse Rate 76 02/09/19 03:55 Respiratory Rate 18 02/09/19 03:55 Blood Pressure 178/86 H 02/09/19 03:55 O2 Sat by Pulse Oximetry (%) 95 02/09/19 03:55 Constitutional: A&Ox3, NAD Eyes: Conjunctiva Clear, PERRL HENT: , Atraumatic, Normocephalic Respiratory: Yes: Cough, Diminished, On Nasal O2, Rhonchi, SOB, SOB on Exertion , Wheezes, Other (+purse lip breathing) Neck: soft and supple with no evidence of rashes, lesions or palpable masses. NO carotid bruit heard over B/L carotid. Musculoskeletal: moving all extremities without limitation Edema: No Peripheral Pulses WNL: Yes Neurological: Yes: WNL, Alert, Oriented Motor Strength: WNL Psychiatric: Yes: WNL, Alert, Oriented Carotid Doppler: Multiple small plaques with calcifications in the right mid common carotid artery. moderate size plaques at right common carotid bifurcation /bilb without evidence of hemodynamically significant stenosis. small plaques with intimal thickening of left common carotid artery. Moderate to large plaques with calcification in the left common carotid bifurcation/bulb with hemodynamically significant stenosis 50-69%. 70 % stenosis of Left ECA noted. Problem List - Problems (1) Carotid stenosis Assessment/Plan: 83 year old woman with a pmhx of COPD on home O2, chronic diastolic CHF, CAD, htn, MR, Dm, and afib on pradaxa presenting with syncope and carotid stenosis with no evidence for vascular intervention at this time. Now POD #1 ILR placement. -continue work up for syncope -DVT prohplaxis -OOB with assist-fall risk -f/u with Dr Mo as outpatient. Code(s): I65.29 - OCCLUSION AND STENOSIS OF UNSPECIFIED CAROTID ARTERY
[2019-02-14] MEDS: guaiFENesin/D-M SUGAR-FREE/ACLHOL-FREE 118 ML BOTTLE PO PRN (17:26)
[2019-02-14] MEDS ORDERED: LORATADINE 10 MG TABLET PO SCH (22:00)
[2019-02-14] MEDS: ROSUVASTATIN CA 10 MG TABLET (FP) PO SCH (22:02)
[2019-02-15] MEDS: glyBURIDE 5 MG TABLET (UD) PO SCH ×2 (06:06→17:01)
[2019-02-15] MEDS: INSULIN SLIDING SCALE (NOVOLOG) 1 VIAL SQ SCH ×3 (06:07→17:01)
[2019-02-15 06:31] LABS: HEMATOCRIT 33.8 % (32.4-45.2); HEMOGLOBIN 11.4 GM/dL (10.7-15.3); MCH 30.6 pg (25.7-33.7); MCHC 33.7 g/dl (32.0-36.0); MEAN CELL VOLUME 90.8 fl (80-96); MEAN PLT VOLUME 10.5 fl (7.5-11.1); PLATELET COUNT 161 K/MM3 (134-434); RBC 3.72 M/mm3 (3.60-5.2); RDW 16.8 % (11.6-15.6); WHITE BLOOD COUNT 10.9 K/mm3 (4.0-10.0)
[2019-02-15 06:56] LABS: BLOOD UREA NITROGEN 51.8 mg/dL (7-18); CALCIUM 8.6 mg/dL (8.5-10.1); CREATININE 1.1 mg/dL (0.55-1.3); MAGNESIUM 2.7 mg/dL (1.8-2.4); POTASSIUM 3.3 mmol/L (3.5-5.1)
[2019-02-15] MEDS: ALBUTEROL SO4 2.5/IPRATROPIUM 0.5 INH SOL 3 ML VIAL.NEB. NEB SCH ×2 (08:00→14:50)
[2019-02-15] MEDS ORDERED: predniSONE 20 MG TABLET (UD) PO SCH (10:00)
[2019-02-15] MEDS: ASPIRIN 81 MG CHEWABLE TABLETS PO SCH (10:34)
[2019-02-15] MEDS: FUROSEMIDE 40 MG TABLET (FP) PO SCH (10:34)
[2019-02-15] MEDS: guaiFENesin/D-M SUGAR-FREE/ACLHOL-FREE 118 ML BOTTLE PO PRN (10:34)
[2019-02-15] MEDS: DABIGATRAN ETEXILATE MESYLATE 75 MG CAPSULE PO SCH (10:35)
[2019-02-15] MEDS: TIOTROPIUM BROMIDE 2.5 MCG (SPIRIVA) RESPIMAT INHALER IH SCH (10:36)
[2019-02-15] MEDS ORDERED: PT OWN MED DRAWER 7, Y5N ONE ×2 (10:47→16:40)
[2019-02-15] MEDS ORDERED: POTASSIUM CHLORIDE TABS 20 MEQ TABLET.ER (FP) PO SCH (11:00)
--- NOTE | 2019-02-15 11:14 | DS ---
Physical Examination Vital Signs: Vital Signs Temperature 97.9 F 02/15/19 05:00 Pulse Rate 97 H 02/15/19 05:00 Respiratory Rate 20 02/15/19 05:00 Blood Pressure 160/89 02/15/19 05:00 O2 Sat by Pulse Oximetry (%) 94 L 02/14/19 19:49 Findings/Remarks: WALKING WITH PT Constitutional: Yes: Mild Distress Eyes: Yes: WNL HENT: Yes: WNL Neck: Yes: WNL Cardiovascular: Yes: Pulse Irregular Respiratory: Yes: WNL Gastrointestinal: Yes: WNL Renal/: Yes: WNL Musculoskeletal: Yes: Muscle Weakness Extremities: Yes: WNL Edema: Yes Edema: LLE: Trace, RLE: Trace Peripheral Pulses WNL: Yes Integumentary: Yes: WNL Wound/Incision: Yes: Clean/Dry Neurological: Yes: Pre-Existing Deficit ...Motor Strength: LLE, RLE Psychiatric: Yes: WNL Labs: CBC, BMP 02/15/19 05:20 02/15/19 05:20 Discharge Summary Problems reviewed: Yes Reason For Visit: CONGESTIVE HEART FAILURE, SYNCOPE AND COLLASPE, Current Active Problems MURALI (acute kidney injury) (Acute) Acute exacerbation of chronic obstructive pulmonary disease (COPD) (Acute) Arrhythmia (Acute) CHF exacerbation (Acute) CKD (chronic kidney disease) (Acute) Cardiomegaly (Acute) Carotid stenosis (Acute) Diabetes mellitus type 2, uncontrolled (Acute) Leg pain (Acute) Syncope and collapse (Acute) Procedures: Principal: LOOP RCORDER PALCEMENT Hospital Course: ADMITTED TREATED FOR RESPIRATORY DISTRESS AND DIURESIS WITH STEROIDS GIVEN IV, PATIENT HAD LOOP RECORDER PLACED FOR AFIB/ARRYTHMIA WILL NEED F/U OUTP[ATIENT IN [address] MOSELEY CARDIOLOGY AND HER PMD DR HARDY Condition: Improved - Instructions Diet, Activity, Other Instructions: SEE DR MOSELEY IN [address] HARDY IN 1 WEEK TAPER THE PREDNISONE WRITTEN FOR 6 DAYS ONLY Referrals: Aman Hardy MD [Primary Care Provider] - Disposition: VNS/HOME HEALTH CARE - Home Medications Comprehensive Discharge Medication List: Ambulatory Orders Rosuvastatin [Crestor -] 20 mg PO DAILY 11/15/16 Albuterol 2.5/Ipratropium 0.5 [Duoneb -] 1 amp NEB QIDR amp 11/19/16 Aspirin [ASA -] 81 mg PO DAILY #30 tab.chew 11/19/16 Cholecalciferol (Vitamin D3) [Optimal D3] 50,000 unit PO WEEKLY 06/22/17 Dabigatran Etexilate Mesylate [Pradaxa -] 75 mg PO BID 06/22/17 Sitagliptin Phosphate [Januvia -] 50 mg PO DAILY@0700 06/22/17 Albuterol Sulfate 0.042% [Ventolin 0.042% (Half-Strength) -] 1 amp NEB Q4H PRN amp 06/29/17 Insulin Sliding Scale [Novolog Vial Sliding Scale -] 1 vial SQ ACHS units 06/29 Acetaminophen [Tylenol .Extra-Strength -] 1,000 mg PO Q8H PRN tablet 07/07/17 Diltiazem Cd [Cardizem Cd -] 120 mg PO DAILY cap.cd.24h 07/07/17 Insulin (Levemir) [Levemir Vial] 10 units SQ AM ml 07/07/17 Tiotropium [place] [Spiriva] 1 puff IH DAILY cap 07/07/17 Digoxin [Lanoxin -] 0.125 mg PO HS 02/08/19 Furosemide [Lasix -] 60 mg PO DAILY 02/08/19 Glyburide 5 mg PO BID 02/08/19 Linaclotide [Linzess] 72 mcg PO DAILY 02/08/19 Acetaminophen [Tylenol .Regular Strength -] 650 mg PO Q6H PRN tablet 02/15/19 Guaifenesin/D-Methorphan Hb [Diabetic Tussin Dm -] 10 ml PO Q4H PRN ml Loratadine [Claritin -] 10 mg PO HS tablet 02/15/19 predniSONE [Deltasone -] See Taper PO DAILY #30 tablet 02/15/19 Prescription Drug Monitoring Program (I-STOP) results: I-STOP not reviewed
--- NOTE | 2019-02-15 11:31 | PN ---
Progress Note, Physician History of Present Illness: pulmonary alert,feeling better,-resp distress,-cp - Current Medication List Current Medications: Active Medications Acetaminophen (Tylenol -) 650 mg PO Q6H PRN PRN Reason: PAIN LEVEL 1-5 Last Admin: 02/13/19 08:19 Dose: 650 mg Albuterol Sulfate (Ventolin 0.042trength) -) 1 amp NEB Q4H PRN PRN Reason: SHORT OF BREATH/WHEEZING Albuterol/Ipratropium (Duoneb -) 1 amp NEB RTID [facility] Last Admin: 02/15/19 08:00 Dose: 1 amp Aspirin (Asa -) 81 mg PO DAILY [facility] Last Admin: 02/15/19 10:34 Dose: 81 mg Dabigatran (Pradaxa -) 75 mg PO BID [facility] Last Admin: 02/15/19 10:35 Dose: 75 mg Diltiazem HCl (Cardizem Cd -) 120 mg PO DAILY [facility] Last Admin: 02/15/19 10:34 Dose: 120 mg Furosemide (Lasix -) 60 mg PO DAILY [facility] Last Admin: 02/15/19 10:34 Dose: 60 mg Glyburide (Diabeta -) 5 mg PO BIDAC [facility] Last Admin: 02/15/19 06:06 Dose: 5 mg Guaifenesin (Diabetic Tussin Dm -) 10 ml PO Q4H PRN PRN Reason: COUGH Last Admin: 02/15/19 10:34 Dose: 10 ml Insulin Aspart (Novolog Vial Sliding Scale -) 1 vial SQ ACHS [facility]; Protocol Last Admin: 02/15/19 06:07 Dose: 4 unit Loratadine (Claritin -) 10 mg PO HS [facility] Last Admin: 02/14/19 22:02 Dose: 10 mg Melatonin (Melatonin) 5 mg PO HS PRN PRN Reason: INSOMNIA Last Admin: 02/14/19 22:02 Dose: 5 mg Potassium Chloride (K-Dur -) 20 meq PO DAILY [facility] Prednisone (Deltasone -) 20 mg PO DAILY [facility] Last Admin: 02/15/19 10:34 Dose: 20 mg Rosuvastatin Calcium (Crestor -) 10 mg PO HS [facility] Last Admin: 02/14/19 22:02 Dose: 10 mg Sitagliptin Phosphate (Januvia -) 25 mg PO DAILY@0700 [facility] Last Admin: 02/15/19 06:06 Dose: 25 mg Tiotropium [place] (Spiriva Respimat) 2 puff IH DAILY [facility] Last Admin: 02/15/19 10:36 Dose: 2 puff - Objective Vital Signs: Vital Signs Temperature 97.9 F 02/15/19 05:00 Pulse Rate 97 H 02/15/19 05:00 Respiratory Rate 20 02/15/19 05:00 Blood Pressure 160/89 02/15/19 05:00 O2 Sat by Pulse Oximetry (%) 94 L 02/14/19 19:49 Constitutional: Yes: Well Nourished, Calm Eyes: Yes: WNL HENT: Yes: WNL Neck: Yes: WNL Cardiovascular: Yes: Pulse Irregular, S1, S2 Respiratory: Yes: Rales (bilateral crackles 1/3 up) Gastrointestinal: Yes: Normal Bowel Sounds, Soft Extremities: Yes: WNL Edema: No Labs: CBC, BMP 02/15/19 05:20 02/15/19 05:20 Assessment/Plan Problem List - Problems (1) Cardiomegaly Code(s): I51.7 - CARDIOMEGALY (2) CHF exacerbation Code(s): I50.9 - HEART FAILURE, UNSPECIFIED Qualifiers: Heart failure type: unspecified Qualified Code(s): I50.9 - Heart failure, unspecified (3) Diabetes mellitus type 2, uncontrolled Code(s): E11.65 - TYPE 2 DIABETES MELLITUS WITH HYPERGLYCEMIA (4) Syncope and collapse Code(s): R55 - SYNCOPE AND COLLAPSE (5) Atrial fibrillation Code(s): I48.91 - UNSPECIFIED ATRIAL FIBRILLATION Qualifiers: Atrial fibrillation type: chronic (6) CAD S/P percutaneous coronary angioplasty Code(s): I25.10 - ATHSCL HEART DISEASE OF [place] CORONARY ARTERY W/O ANG PCTRS; Z98.61 - CORONARY ANGIOPLASTY STATUS (7) CHF (congestive heart failure) Code(s): I50.9 - HEART FAILURE, UNSPECIFIED (8) COPD (chronic obstructive pulmonary disease) Code(s): J44.9 - CHRONIC OBSTRUCTIVE PULMONARY DISEASE, UNSPECIFIED Qualifiers: COPD type: COPD with acute exacerbation Qualified Code(s): J44.1 - Chronic obstructive pulmonary disease with (acute) exacerbation (9) Dyslipidemia Code(s): E78.5 - HYPERLIPIDEMIA, UNSPECIFIED (10) HTN (hypertension) Code(s): I10 - ESSENTIAL (PRIMARY) HYPERTENSION Qualifiers: Hypertension type: essential hypertension Qualified Code(s): I10 - Essential (primary) hypertension (11) Mitral valve regurgitation Code(s): I34.0 - NONRHEUMATIC MITRAL (VALVE) INSUFFICIENCY Qualifiers: Cardiac valve disease etiology: etiology unspecified Qualified Code(s): I34.0 - Nonrheumatic mitral (valve) insufficiency (12) Acute exacerbation of chronic obstructive pulmonary disease (COPD) Code(s): J44.1 - CHRONIC OBSTRUCTIVE PULMONARY DISEASE W (ACUTE) EXACERBATION Assessment/Plan IMP: COPD/ILD SEVERE PULMONARY HTN MILD-MODERATE AFIB MURALI Prednisone BD TX as ordered Supplemental O2 as needed to maintain saturation Lasix as needed No smoking Daily weights rate control doubt PE,nl D-DIMER,pt on ac DR LORA
--- NOTE | 2019-02-15 13:48 | PN ---
Progress Note (short form) - Note Progress Note: Renal follow up for MURALI/CKD Seen and examined at the bedside feels better denies any worsening sob, chest pain, fever or chills making urine for discharge home today Vital Signs Temperature 98 F 02/15/19 09:00 Pulse Rate 106 H 02/15/19 09:00 Respiratory Rate 20 02/15/19 09:00 Blood Pressure 149/71 02/15/19 09:00 O2 Sat by Pulse Oximetry (%) 95 02/15/19 09:00 Intake & Output 02/12/19 02/13/19 02/14/19 02/15/19 23:59 23:59 23:59 23:59 Intake Total 1220 460 980 250 Balance 1220 460 980 250 Weight 56.971 kg 56.245 kg 56.336 kg 56.155 kg NAD awake and alert neck supple, no JVD RRR, no M/R CTA soft NT/ND no LE edema, clubbing or cyanosis CBC, BMP 02/15/19 05:20 02/15/19 05:20 Current Medications Acetaminophen (Tylenol -) 650 mg PO Q6H PRN PRN Reason: PAIN LEVEL 1-5 Last Admin: 02/13/19 08:19 Dose: 650 mg Albuterol Sulfate (Ventolin 0.042trength) -) 1 amp NEB Q4H PRN PRN Reason: SHORT OF BREATH/WHEEZING Albuterol/Ipratropium (Duoneb -) 1 amp NEB RTID [facility] Last Admin: 02/15/19 08:00 Dose: 1 amp Aspirin (Asa -) 81 mg PO DAILY [facility] Last Admin: 02/15/19 10:34 Dose: 81 mg Dabigatran (Pradaxa -) 75 mg PO BID [facility] Last Admin: 02/15/19 10:35 Dose: 75 mg Diltiazem HCl (Cardizem Cd -) 120 mg PO DAILY [facility] Last Admin: 02/15/19 10:34 Dose: 120 mg Furosemide (Lasix -) 60 mg PO DAILY [facility] Last Admin: 02/15/19 10:34 Dose: 60 mg Glyburide (Diabeta -) 5 mg PO BIDAC [facility] Last Admin: 02/15/19 06:06 Dose: 5 mg Guaifenesin (Diabetic Tussin Dm -) 10 ml PO Q4H PRN PRN Reason: COUGH Last Admin: 02/15/19 10:34 Dose: 10 ml Insulin Aspart (Novolog Vial Sliding Scale -) 1 vial SQ ACHS [facility]; Protocol Last Admin: 02/15/19 11:45 Dose: 12 unit Loratadine (Claritin -) 10 mg PO HS [facility] Last Admin: 02/14/19 22:02 Dose: 10 mg Melatonin (Melatonin) 5 mg PO HS PRN PRN Reason: INSOMNIA Last Admin: 02/14/19 22:02 Dose: 5 mg Potassium Chloride (K-Dur -) 20 meq PO DAILY [facility] Last Admin: 02/15/19 11:45 Dose: 20 meq Prednisone (Deltasone -) 20 mg PO DAILY [facility] Last Admin: 02/15/19 10:34 Dose: 20 mg Rosuvastatin Calcium (Crestor -) 10 mg PO HS [facility] Last Admin: 02/14/19 22:02 Dose: 10 mg Sitagliptin Phosphate (Januvia -) 25 mg PO DAILY@0700 [facility] Last Admin: 02/15/19 06:06 Dose: 25 mg Tiotropium Clubb (Spiriva Respimat) 2 puff IH DAILY [facility] Last Admin: 02/15/19 10:36 Dose: 2 puff 83 year old woman with history of COPD, CHF, CAD, Hypertension, MVR, DM, Afib on A/C who presented withy syncope from home and noted to have Cr of 1.5. 1. MURALI 2. Syncope 3. COPD 4. CAD/CHF (preserved LVEF) 5. Hypertension 6. Elevated serum bicarb due to metabolic compensation for respiratory acidosis vs. contraction alkalosis 7. DM type 2 Renal function stable BUN elevated secondary to steroids and mild azotemia from diuretics CXR done yesterday shows no effusions or congestion Continue Lasix 60mg PO daily Trend renal function and electrolytes daily supplement K Would avoid NSAIDs, IV contrast, Fleet enemas continue steroids as per pulmonary Luis Darion RONQUILLO
[2019-02-15 15:37] VITALS: BP 165/75; PULSE 94; TEMP 98.2
== END 2019-02-15 20:41 | disposition home health service (06) | DRG 261 ==
LOC: JER 17:43 → JERBED 19:14 → J4W 02-09 15:20
PROVIDERS: ADMIT Internal Medicine; ATTEND Family Medicine
PROC: 0JH632Z Insertion of Monitoring Device into Chest Subcutaneous Tissue and Fascia, Percutaneous Approach (ICD-10-PCS; principal; 2019-02-13 13:15)
DX: I47.1 Supraventricular tachycardia (principal); N17.9 Acute kidney failure, unspecified; J44.1 Chronic obstructive pulmonary disease with (acute) exacerbation; I13.0 Hypertensive heart and chronic kidney disease with heart failure and stage 1 through stage 4 chronic kidney disease, or unspecified chronic kidney disease; J84.9 Interstitial pulmonary disease, unspecified; J96.11 Chronic respiratory failure with hypoxia; I50.32 Chronic diastolic (congestive) heart failure; I48.91 Unspecified atrial fibrillation; Z99.81 Dependence on supplemental oxygen; I25.10 Atherosclerotic heart disease of native coronary artery without angina pectoris; I34.0 Nonrheumatic mitral (valve) insufficiency; Z79.01 Long term (current) use of anticoagulants; Z79.4 Long term (current) use of insulin; E11.22 Type 2 diabetes mellitus with diabetic chronic kidney disease; Z87.891 Personal history of nicotine dependence; E11.65 Type 2 diabetes mellitus with hyperglycemia; E78.5 Hyperlipidemia, unspecified; Z79.84 Long term (current) use of oral hypoglycemic drugs; I27.20 Pulmonary hypertension, unspecified; I35.0 Nonrheumatic aortic (valve) stenosis; N18.9 Chronic kidney disease, unspecified; I50.9 Heart failure, unspecified; I65.29 Occlusion and stenosis of unspecified carotid artery
CPT/HCPCS: 36415; 70450-TC; 71045-TC-FY; 71046-TC-FY; 71250-TC; 72100-TC-FY; 73502-TC-LT-FY; 78452-TC; 80048; 80053; 80162; 81003; 82550; 82803; 82947; 82962; 83036; 83735; 83880; 84100; 84484; 85025; 85027; 85379; 93005; 93010; 93017; 93306-TC; 93880-TC; 94640; 97116-GP; 97162-GP; 99285-25; A9502

== ENCOUNTER 2019-04-21 13:18 | Inpatient (IN) | payer OTHER ==
[2019-04-21] MEDS ORDERED: ALBUTEROL SO4 2.5/IPRATROPIUM 0.5 INH SOL 3 ML VIAL.NEB. NEB ONE ×2 (13:33→15:51)
[2019-04-21] MEDS ORDERED: FUROSEMIDE 40 MG/4 ML INJECTABLE VIAL IVPUSH ONE ×2 (13:42→14:21)
[2019-04-21 14:16] LABS: VENOUS PC02 58.7 mmHg (38-52)
[2019-04-21 14:17] LABS: VENOUS PO2 < 49 mmHg (28-48)
--- NOTE | 2019-04-21 14:21 | PDOC ---
History of Present Illness - General Stated Complaint: SHORTNESS OF BREATH Time Seen by Provider: 04/21/19 13:27 History Source: Patient, Old Records - History of Present Illness Initial Comments: 04/21/19 14:20 84y F with PMH of CAD s/p stent x2, COPD (3L home O2), Pulmonary HTN, Afib ( Pradaxa) CHF, HTN, MVR, DM presenting for SOB worsening over the past few days. Pt states that she mainly has been feeling short of breath with exertion but daughter also noticed it at rest. Patient also endorses dry cough today. Denies orthopnea, congestion, fevers, chills, back pain, chest pain, syncope, leg swelling, weight gain, hematuria, dysuria, n/v/d. PMD: Yvonne PMH: see hpi PSH: see hpi Meds: see med rec Allergies: nkda Past History - Past Medical History Allergies/Adverse Reactions: Allergies Allergy/AdvReac Type Severity Reaction Status Date / Time No Known Allergies Allergy Verified 04/21/19 14:09 Home Medications: Ambulatory Orders Rosuvastatin [Crestor -] 20 mg PO DAILY 11/15/16 Albuterol 2.5/Ipratropium 0.5 [Duoneb -] 1 amp NEB QIDR amp 11/19/16 Aspirin [ASA -] 81 mg PO DAILY #30 tab.chew 11/19/16 Cholecalciferol (Vitamin D3) [Optimal D3] 50,000 unit PO WEEKLY 06/22/17 Dabigatran Etexilate Mesylate [Pradaxa -] 75 mg PO BID 06/22/17 Sitagliptin Phosphate [Januvia -] 50 mg PO DAILY@0700 06/22/17 Albuterol Sulfate 0.042% [Ventolin 0.042% (Half-Strength) -] 1 amp NEB Q4H PRN amp 06/29/17 Insulin Sliding Scale [Novolog Vial Sliding Scale -] 1 vial SQ ACHS units 06/29 Acetaminophen [Tylenol .Extra-Strength -] 1,000 mg PO Q8H PRN tablet 07/07/17 Diltiazem Cd [Cardizem Cd -] 120 mg PO DAILY cap.cd.24h 07/07/17 Insulin (Levemir) [Levemir Vial] 10 units SQ AM ml 07/07/17 Tiotropium [place] [Spiriva] 1 puff IH DAILY cap 07/07/17 Digoxin [Lanoxin -] 0.125 mg PO HS 02/08/19 Furosemide [Lasix -] 60 mg PO DAILY 02/08/19 Glyburide 5 mg PO BID 02/08/19 Linaclotide [Linzess] 72 mcg PO DAILY 02/08/19 Acetaminophen [Tylenol -] 500 mg PO Q6H #100 tablet 02/15/19 Acetaminophen [Tylenol .Regular Strength -] 650 mg PO Q6H PRN tablet 02/15/19 Guaifenesin/D-Methorphan Hb [Diabetic Tussin Dm -] 10 ml PO Q4H PRN ml Guaifenesin/D-Methorphan Hb [Diabetic Tussin Dm -] 10 ml PO Q4H PRN #1 bottle Insulin Detemir [Levemir Flextouch] 100 unit SQ ACHS #1 insuln.pen 02/15/19 Loratadine [Claritin -] 10 mg PO HS tablet 02/15/19 Loratadine [Claritin] 10 mg PO DAILY #30 tablet 02/15/19 predniSONE [Deltasone -] See Taper PO DAILY #30 tablet 02/15/19 Anemia: No Asthma: No Cancer: No Cardiac Disorders: Yes (s/p stents x 2, aortic valve leaking) CVA: No COPD: Yes CHF: Yes Dementia: No Diabetes: Yes GI Disorders: No Disorders: No HTN: Yes Hypercholesterolemia: Yes Kidney Stones: No Liver Disease: No Psychiatric Problems: No Seizures: No Thyroid Disease: No Lung CA: No - Surgical History Abdominal Surgery: No Appendectomy: No Cardiac Surgery: Yes (stents) Cholecystectomy: No Lung Surgery: No Neurologic Surgery: No Orthopedic Surgery: Yes (Left wrist) - Immunization History Immunization Up to Date: Yes - Psycho Social/Smoking Cessation Hx Smoking Status: No Smoking History: Never smoked Have you smoked in the past 12 months: No Number of Cigarettes Smoked Daily: 0 If you are a former smoker, when did you quit?: 2 years ago Cigars Per Day: 0 'Breaking Loose' booklet given: 02/09/19 Hx Alcohol Use: No Drug/Substance Use Hx: No Substance Use Type: None Hx Substance Use Treatment: No Review of Systems - Review of Systems Constitutional: Yes: Weakness. No: Chills, Fever HEENTM: No: Symptoms Reported Respiratory: Yes: See HPI Cardiac (ROS): No: Symptoms Reported ABD/GI: No: Symptoms Reported : No: Symptoms Reported Musculoskeletal: No: Symptoms Reported Integumentary: No: Symptoms Reported Neurological: No: Symptoms reported *Physical Exam - Vital Signs Last Vital Signs Temp Pulse Resp BP Pulse Ox 99.2 F 87 20 92/59 L 100 04/21/19 14:10 04/21/19 14:10 04/21/19 14:10 04/21/19 14:10 04/21/19 14:10 - Physical Exam General Appearance: Yes: Moderate Distress, Thin HEENT: positive: EOMI, KIM Neck: positive: Trachea midline, Supple. negative: Lymphadenopathy (R), Lymphadenopathy (L) Respiratory/Chest: positive: Labored Respiration, Rapid RR, Rhonchi, Wheezing. negative: Chest Tender, Stridor Cardiovascular: positive: Regular Rhythm, Regular Rate, S1, S2. negative: Edema , JVD, Murmur Vascular Pulses: Dorsalis-Pedis (R): 2+, Doralis-Pedis (L): 2+ Gastrointestinal/Abdominal: positive: Normal Bowel Sounds, Soft. negative: Tender Musculoskeletal: negative: CVA Tenderness Extremity: positive: Normal Capillary Refill. negative: Pedal Edema, Swelling Integumentary: positive: Normal Color, Dry, Warm Neurologic: positive: jacket changer II-XII NML intact, Fully Oriented, Alert, Normal Mood/ Affect, Normal Response, Motor Strength 5/5 ED Treatment Course - LABORATORY CBC & Chemistry Diagram: 04/21/19 13:40 04/21/19 13:40 - ADDITIONAL ORDERS Additional order review: Laboratory Results 04/21/19 13:42 VBG pH 7.40 POC VBG pCO2 58.7 H POC VBG pO2 < 49 H VBG HCO3 35.3 H VBG O2 Sat (Lucian) 58.8 L VBG Base Excess 8.9 H - RADIOLOGY Radiology Studies Ordered: Category Date Time Status CHEST X-RAY PORTABLE* [RAD] Stat Radiology 04/21/19 13:30 Ordered - Medications Given in the ED: ED Medications Discontinued Medications Generic Name Dose Route Start Last Admin Trade Name Freq PRN Reason Stop Dose Admin Albuterol/Ipratropium 3 amp 04/21/19 13:33 04/21/19 14:12 Duoneb - NEB 04/21/19 13:34 3 amp ONCE ONE Administration Medical Decision Making - Critical Care Time Total Critical Care Time (minutes): 60 Critical Care Statement: The care of this patient involved high complexity decision making to prevent further life threatening deterioration of the patient 's condition and/or to evaluate & treat vital organ system(s) failure or risk of failure. - Medical Decision Making 04/21/19 15:23 84y F with pmh of copd, cad, pulm htn presenting to ed with sob. vitals: hypotensive on arrival, tachypneic. ddx includes copd exacerbation, chf exacerbation, pulmonary edema, effusions, pe , pna -septic w/u. -ekg, cxr, bipap blines on bedside sono. no effusions. likely chf exacerbation labs show elevated bnp 18k. trop 0.26 likely 2/2 demand. no signs of acute ischemia on ekg. consulted icu; pt was made dni. will admit to tele. Discharge - Discharge Information Problems reviewed: Yes Clinical Impression/Diagnosis: SOB (shortness of breath) CHF (congestive heart failure) Qualifiers: Heart failure type: unspecified Heart failure chronicity: acute Qualified Code( s): I50.9 - Heart failure, unspecified Condition: Stable - Admission Yes - Follow up/Referral - Patient Discharge Instructions - Post Discharge Activity
[2019-04-21 14:28] LABS: BASO % 0.3 % (0-2.0); EOS % 0.1 % (0-4.5); HEMATOCRIT 36.9 % (32.4-45.2); HEMOGLOBIN 12.3 GM/dL (10.7-15.3); LYMPH % 10.1 % (8-40); MCH 30.3 pg (25.7-33.7); MCHC 33.3 g/dl (32.0-36.0); MEAN CELL VOLUME 91.2 fl (80-96); MEAN PLT VOLUME 10.3 fl (7.5-11.1); NEUT % 83.5 % (42.8-82.8); PLATELET COUNT 163 K/MM3 (134-434); RBC 4.04 M/mm3 (3.60-5.2); RDW 17.1 % (11.6-15.6); WHITE BLOOD COUNT 6.3 K/mm3 (4.0-10.0)
[2019-04-21] MEDS ORDERED: FUROSEMIDE 40 MG/4 ML INJECTABLE VIAL ONE (14:34)
[2019-04-21 14:40] LABS: INR 1.4 (0.83-1.09); PROTHROMBIN TIME (PATIENT) 16.6 SEC (9.7-13.0)
[2019-04-21 14:41] LABS: HYALINE CASTS 7 /lpf (0-8); URINE APPEARANCE CLEAR; URINE BACTERIA 11.7 /hpf (NEGATIVE); URINE BILIRUBIN NEGATIVE (NEGATIVE); URINE COLOR YELLOW; URINE GLUCOSE (UA) NEGATIVE (NEGATIVE); URINE KETONE NEGATIVE (NEGATIVE); URINE LEUK ESTERASE NEGATIVE (NEGATIVE); URINE NITRITE NEGATIVE (NEGATIVE); URINE PROTEIN 2+ (NEGATIVE); URINE RBC 26 /hpf (0-4); URINE WBC 6 /hpf (0-5)
--- NOTE | 2019-04-21 14:44 | PDOC ---
Documentation entered by Aline Crews SCRIBE, acting as scribe for Farhana Nichols MD. Farhana Nichols MD: This documentation has been prepared by the Mars petersen Adrianna, SCRIBE, under my direction and personally reviewed by me in its entirety. I confirm that the documentation accurately reflects all work, treatment, procedures, and medical decision making performed by me. Attending Attestation - Resident Resident Name: Addis Gutierrez - ED Attending Attestation I have performed the following: I have examined & evaluated the patient, The case was reviewed & discussed with the resident, I agree w/resident's findings & plan, Exceptions are as noted - HPI HPI: 04/21/19 14:37 84 yo F with h/o copd, chf, mitral regurg, pulm htn, CAD currently on lasix 60 mg daily, here with progressive sob x 3 days. suddenly worse today. did have episode of post tussive emsis few day ago. no f/c no chest pain. no new leg swelling. no h/o pe dvt. no fever. daughter had checked her temperature several times. - Physicial Exam PE: 04/21/19 14:39 severe resp distress, accessory muscle use, diffuse wheeze crackles , tachypnea , heart irreg tachycardia. abd osft nt nd bilat lower ext 2+ pitting edema. - Medical Decision Making 04/21/19 14:40 84 yo F with h/o afib, copd chf pulm htn cad here with sob, focused ED lung ultrasound performed. diffuse b lines anterior lung zamora, and bilat bases. no plueral effusion focused ED TTE at bedside good contractility, dilated atria noted, LV hypertropy noted.no pericardial effusion differential chf, copd , pneuonia mi anemia.renal failure pt given bipap 12/03. some improvement. given duoneb. due to b lines seen on us, given small dose of lasix 20 m g ivp has already taken 60 prior to arrival. pt somewhat with improved work of breathing on bipap. will consult ICU 04/21/19 15:51 pt evaluated by ICU, pt would like to be DNI, agreeable to cpr. will admit to telemetry overall much improved. on Bipap. given steroids and third neb. resp rate improved oxygen sats better and overall work of breathing improved. pt admited. Heart Score/ECG Review #1 General ECG Interpretation: Normal Rate, Normal Intervals, No acute ischemic changes Compared to previous ECG there are: Other (afib, LVH, no st elevation or depression. TWI I AVL, II, III) Critical Care Time/MDM Note Total Critical Care Time: 60 Critical Care Statement: The care of this patient involved high complexity decision making to prevent further life threatening deterioration of the patient 's condition and/or to evaluate & treat vital organ system(s) failure or risk of failure. - Medical Decision Making Note: 04/21/19 15:52 pt presetned in severe resp distress. copd/ chf h/o pulm htn. initially placed on nebs. bedside us performed with diffuse b lines c/w pulm edema. given lasix 20 iv inaddition to her 60 po she had taken at home. initila bp was low 92/59. with bipapa bp improved. overall doing better. goals of care discussed pt would not like to be intubated. DNI signed. agreeable to CPR and ACLS ICU consulted. felt ok for tele on bipap. d/w admitteding team admitted.
[2019-04-21 15:01] LABS: ALBUMIN 3.6 g/dl (3.4-5.0); BLOOD UREA NITROGEN 28.2 mg/dL (7-18); CALCIUM 9.2 mg/dL (8.5-10.1); CREATININE 1.2 mg/dL (0.55-1.3); MAGNESIUM 2.4 mg/dL (1.8-2.4); N-TERMINAL BNP 18892.5 pg/ml (5-450); TOT PROT 7.1 g/dl (6.4-8.2)
[2019-04-21] MEDS ORDERED: POTASSIUM CHLORIDE TABS 10 MEQ TABLET.ER (FP) PO ONE (15:25)
[2019-04-21] MEDS ORDERED: ASPIRIN 81 MG CHEWABLE TABLETS PO ONE (15:48)
[2019-04-21] MEDS ORDERED: methylPREDNISolone NA SUCC 125 MG/2 ML VIAL IVPUSH ONE (15:50)
--- NOTE | 2019-04-21 16:16 | PN ---
Progress Note (short form) - Note Progress Note: Patient is an 84 year old female w/PMH of COPD (on home O2 3L), CHF, pulmonary HTN, CAD (s/p stent), Afib (on pradaxa), HTN, MVR, DM who presents with 3 days of progressive SOB and intermittent cough. Pt mainly feels SOB with exertion. Cough is intermittent and nonproductive. She had one episode of posttusiive emesis. Denies fevers, chills, chest pain, orthopnea, increased leg swelling. States she has been compliant with her home medications. No recent illnesses or sick contacts. Last Vital Signs Temp Pulse Resp BP Pulse Ox 99.2 F 87 20 140/72 100 04/21/19 14:10 04/21/19 14:10 04/21/19 14:10 04/21/19 14:49 04/21/19 14:10 Physical exam: GEN: A&O x3, in no acute distress HEART: RRR, S1, S2, and S4, no murmurs LUNG: Coarse breath sounds, insp and exp rhonchi and rales w/some diffuse crackles. Accessory muscle use. ABD: Soft, nontender, normoactive bowel sounds EXT: 2+ pulses, no edema Patient is an 84 year old female w/PMH of COPD (on home O2 3L), CHF, pulmonary HTN, CAD (s/p stent), Afib (on pradaxa), HTN, MVR, DM who presents with 3 days of progressive SOB. #Acute hypoxic respiratory failure -Likely 2/2 COPD exacerbation -Pt placed on BiPAP (12/03//50%) -Received 3amp duoneb, 20mg lasix -CXR: no acute pathology, no infiltrates or consolidations -Recommend additional duonebs and IV steroids -Pt is DNI, signed documentation Dispo: Pt is DNI, does not require ICU monitoring at this time. Please follow up with any further needs. ,
[2019-04-21] MEDS ORDERED: methylPREDNISolone NA SUCC 125 MG/2 ML VIAL ONE (16:33)
[2019-04-21] MEDS ORDERED: ASPIRIN 81 MG CHEWABLE TABLETS ONE (16:33)
[2019-04-21] MEDS ORDERED: POTASSIUM CHLORIDE TABS 20 MEQ TABLET.ER (FP) PO ONE (16:33)
[2019-04-21] MEDS ORDERED: ACETAMINOPHEN 325 MG TABLET (FP) PO PRN (16:37)
--- NOTE | 2019-04-21 16:39 | HP ---
Admitting History and Physical - Primary Care Physician PCP: Aman Russell - Admission Chief Complaint: sob x3 days History of Present Illness: 84 year old female with PMH COPD, home oxygen 3L, CAD, PULM HTN, CHF, AFIB, DM presents to the ED with sob x3 days. she states she has felt sob for several days, her daughter feels her work of breathing is much more than usual. she states she feels she isnt getting enough oxygen. 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 she reports coughing, she denies chest pains, pressure, n/v/d. History Source: Patient, Family Member - Past Medical History Cardiovascular: Yes: AFIB, CAD (S/P STENTING), CHF, HTN, Hyperlipdemia Pulmonary: Yes: Bronchitis, COPD, O2 Dependent, Pneumonia. 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) History of Recent Travel: No Home Medications - Allergies Allergies/Adverse Reactions: Allergies Allergy/AdvReac Type Severity Reaction Status Date / Time No Known Allergies Allergy Verified 04/21/19 14:09 - Home Medications Home Medications: Ambulatory Orders Rosuvastatin [Crestor -] 20 mg PO DAILY 11/15/16 Albuterol 2.5/Ipratropium 0.5 [Duoneb -] 1 amp NEB QIDR amp 11/19/16 Aspirin [ASA -] 81 mg PO DAILY #30 tab.chew 11/19/16 Cholecalciferol (Vitamin D3) [Optimal D3] 50,000 unit PO WEEKLY 06/22/17 Dabigatran Etexilate Mesylate [Pradaxa -] 75 mg PO BID 06/22/17 Sitagliptin Phosphate [Januvia -] 50 mg PO DAILY@0700 06/22/17 Albuterol Sulfate 0.042% [Ventolin 0.042% (Half-Strength) -] 1 amp NEB Q4H PRN amp 06/29/17 Insulin Sliding Scale [Novolog Vial Sliding Scale -] 1 vial SQ ACHS units 06/29 Acetaminophen [Tylenol .Extra-Strength -] 1,000 mg PO Q8H PRN tablet 07/07/17 Diltiazem Cd [Cardizem Cd -] 120 mg PO DAILY cap.cd.24h 07/07/17 Insulin (Levemir) [Levemir Vial] 10 units SQ AM ml 07/07/17 Tiotropium [place] [Spiriva] 1 puff IH DAILY cap 07/07/17 Digoxin [Lanoxin -] 0.125 mg PO HS 02/08/19 Furosemide [Lasix -] 60 mg PO DAILY 02/08/19 Glyburide 5 mg PO BID 02/08/19 Linaclotide [Linzess] 72 mcg PO DAILY 02/08/19 Acetaminophen [Tylenol -] 500 mg PO Q6H #100 tablet 02/15/19 Acetaminophen [Tylenol .Regular Strength -] 650 mg PO Q6H PRN tablet 02/15/19 Guaifenesin/D-Methorphan Hb [Diabetic Tussin Dm -] 10 ml PO Q4H PRN ml Guaifenesin/D-Methorphan Hb [Diabetic Tussin Dm -] 10 ml PO Q4H PRN #1 bottle Insulin Detemir [Levemir Flextouch] 100 unit SQ ACHS #1 insuln.pen 02/15/19 Loratadine [Claritin -] 10 mg PO HS tablet 02/15/19 Loratadine [Claritin] 10 mg PO DAILY #30 tablet 02/15/19 predniSONE [Deltasone -] See Taper PO DAILY #30 tablet 02/15/19 Review of Systems - Review of Systems Constitutional: reports: Lethargy Eyes: reports: No Symptoms HENT: reports: No Symptoms Neck: reports: No Symptoms Cardiovascular: reports: Shortness of Breath Respiratory: reports: Cough, SOB, SOB on Exertion Gastrointestinal: reports: No Symptoms Genitourinary: reports: No Symptoms Musculoskeletal: reports: No Symptoms Integumentary: reports: No Symptoms Neurological: reports: No Symptoms Endocrine: reports: No Symptoms Hematology/Lymphatic: reports: No Symptoms Psychiatric: reports: No Symptoms Physical Examination Vital Signs: Vital Signs Temperature 99.2 F 04/21/19 14:10 Pulse Rate 87 04/21/19 14:10 Respiratory Rate 20 04/21/19 14:10 Blood Pressure 140/72 04/21/19 14:49 O2 Sat by Pulse Oximetry (%) 100 04/21/19 14:10 Constitutional: Yes: Anxious, Moderate Distress HENT: Yes: Atraumatic, Normocephalic Neck: Yes: Supple Cardiovascular: Yes: Regular Rate and Rhythm Respiratory: Yes: Accessory Muscle Use, Rhonchi Gastrointestinal: Yes: Normal Bowel Sounds, Soft Integumentary: Yes: WNL Neurological: Yes: Alert, Oriented Labs: CBC, BMP 04/21/19 13:40 04/21/19 13:40 Problem List - Problems (1) Acute exacerbation of chronic obstructive pulmonary disease (COPD) Assessment/Plan: pulm consult IV steroids neb tx on bipap maintain oxygen sat >92% PT eval Code(s): J44.1 - CHRONIC OBSTRUCTIVE PULMONARY DISEASE W (ACUTE) EXACERBATION (2) Atrial fibrillation Assessment/Plan: cont home meds Code(s): I48.91 - UNSPECIFIED ATRIAL FIBRILLATION Qualifiers: Atrial fibrillation type: chronic (3) CAD S/P percutaneous coronary angioplasty Assessment/Plan: cont home meds Code(s): I25.10 - ATHSCL HEART DISEASE OF [place] CORONARY ARTERY W/O ANG PCTRS; Z98.61 - CORONARY ANGIOPLASTY STATUS (4) CHF exacerbation Assessment/Plan: cardio eval IV lasix I &O daily weights 2gm, 2L Code(s): I50.9 - HEART FAILURE, UNSPECIFIED Qualifiers: Heart failure type: unspecified Qualified Code(s): I50.9 - Heart failure, unspecified (5) Diabetes Assessment/Plan: cont home meds monitor sugars while on IVMP Code(s): E11.9 - TYPE 2 DIABETES MELLITUS WITHOUT COMPLICATIONS Qualifiers: Diabetes mellitus type: other specified (including YULISA) Diabetes mellitus buttermaker helper insulin use: with fdc use Diabetes mellitus complication status: with unspecified complications (6) HTN (hypertension) Assessment/Plan: cont home meds Code(s): I10 - ESSENTIAL (PRIMARY) HYPERTENSION Qualifiers: Hypertension type: essential hypertension Qualified Code(s): I10 - Essential (primary) hypertension (7) Respiratory failure Assessment/Plan: pulm consult bipap DNI Code(s): J96.90 - RESPIRATORY FAILURE, UNSP, UNSP W HYPOXIA OR HYPERCAPNIA Qualifiers: Chronicity: acute on chronic Respiratory failure complication: hypoxia and hypercapnia Qualified Code(s): J96.21 - Acute and chronic respiratory failure with hypoxia; J96.22 - Acute and chronic respiratory failure with hypercapnia (8) CKD (chronic kidney disease) Assessment/Plan: cr 1.2 monitor Code(s): N18.9 - CHRONIC KIDNEY DISEASE, UNSPECIFIED
[2019-04-21] MEDS ORDERED: CEFTRIAXONE 1 GM/50 ML BAG ONE (17:15)
[2019-04-21] MEDS ORDERED: AZITHROMYCIN IVPB 500 MG/250 ML BAG IVPB ONE (17:15)
[2019-04-21] MEDS ORDERED: PANTOPRAZOLE 40 MG TABLET PO ONE (17:20)
[2019-04-21] MEDS: CEFTRIAXONE 1 GM in DEXTROSE 5%-WATER - 50 ML IVPB SCH (17:40)
[2019-04-21] MEDS ORDERED: ALBUTEROL SO4 2.5/IPRATROPIUM 0.5 INH SOL 3 ML VIAL.NEB. NEB SCH (18:00)
[2019-04-21] MEDS: AZITHROMYCIN IVPB 500 MG in DEXTROSE 5%-WATER - 250 ML IVPB SCH (18:17)
[2019-04-21] MEDS: methylPREDNISolone NA SUCC 40 MG/1 ML VIAL IVPUSH SCH ×2 (18:17→22:27)
[2019-04-21] MEDS ORDERED: DIGOXIN 0.125 MG TABLET (FP) PO SCH (22:00)
[2019-04-21] MEDS: INSULIN SLIDING SCALE (NOVOLOG) 1 VIAL SQ SCH (22:35)
[2019-04-21] MEDS ORDERED: INSULIN (NOVOLOG) ASPART 100 UNITS/ML 10ML VIAL SQ ONE (23:00)
[2019-04-21] MEDS: DABIGATRAN ETEXILATE MESYLATE 75 MG CAPSULE PO SCH (23:13)
[2019-04-22] MEDS: INSULIN SLIDING SCALE (NOVOLOG) 1 VIAL SQ SCH ×4 (06:43→21:33)
[2019-04-22] MEDS: INSULIN (LEVEMIR) 100 UNITS/ML UNITS SQ SCH (06:45)
[2019-04-22] MEDS: FUROSEMIDE 40 MG/4 ML INJECTABLE VIAL IVPUSH SCH ×2 (06:45→13:52)
[2019-04-22 07:34] LABS: BASO % 0.1 % (0-2.0); HEMATOCRIT 33.9 % (32.4-45.2); LYMPH % 18.9 % (8-40); MCH 29.6 pg (25.7-33.7); MCHC 32.5 g/dl (32.0-36.0); MEAN PLT VOLUME 10.6 fl (7.5-11.1); MONO % 5.1 % (3.8-10.2); NEUT % 75.9 % (42.8-82.8); PLATELET COUNT 155 K/MM3 (134-434); RBC 3.73 M/mm3 (3.60-5.2); RDW 16.7 % (11.6-15.6); WHITE BLOOD COUNT 2.6 K/mm3 (4.0-10.0)
[2019-04-22] MEDS ORDERED: cefTRIAXone SODIUM 1 GM VIAL ONE (07:46)
[2019-04-22] MEDS ORDERED: DEXTROSE 5%-WATER - 50 ML IVPB ONE (07:47)
[2019-04-22] MEDS: ALBUTEROL SO4 2.5/IPRATROPIUM 0.5 INH SOL 3 ML VIAL.NEB. NEB SCH ×4 (08:00→20:30)
[2019-04-22 08:30] LABS: BILIRUBIN,TOTAL 0.7 mg/dL (0.2-1); BLOOD UREA NITROGEN 36.8 mg/dL (7-18); CALCIUM 9.2 mg/dL (8.5-10.1); CREATININE 1.2 mg/dL (0.55-1.3); MAGNESIUM 2.5 mg/dL (1.8-2.4); POTASSIUM 3.8 mmol/L (3.5-5.1); TOT PROT 6.4 g/dl (6.4-8.2)
[2019-04-22] MEDS: PANTOPRAZOLE 40 MG TABLET PO SCH (09:50)
[2019-04-22] MEDS: ASPIRIN 81 MG CHEWABLE TABLETS PO SCH (09:50)
[2019-04-22] MEDS: DABIGATRAN ETEXILATE MESYLATE 75 MG CAPSULE PO SCH ×2 (09:50→21:32)
[2019-04-22] MEDS: CEFTRIAXONE 1 GM in DEXTROSE 5%-WATER - 50 ML IVPB SCH (09:51)
[2019-04-22] MEDS: methylPREDNISolone NA SUCC 40 MG/1 ML VIAL IVPUSH SCH ×4 (09:52→21:33)
[2019-04-22] MEDS: AZITHROMYCIN IVPB 500 MG in DEXTROSE 5%-WATER - 250 ML IVPB SCH (09:55)
[2019-04-22] MEDS: AZITHROMYCIN IVPB 500 MG/250 ML BAG IVPB SCH (09:57)
--- NOTE | 2019-04-22 10:27 | PN ---
Progress Note, Physician Chief Complaint: AWAKE ALERT EVENTS AND NOTES REVIEWED SHE IS SITTING UP IN BED ON 02 NC C/O DYSPNEA WORSE WITH EXERTION - Current Medication List Current Medications: Active Medications Acetaminophen (Tylenol -) 650 mg PO Q6H PRN PRN Reason: PAIN LEVEL 1-5 Albuterol Sulfate (Ventolin 0.042trength) -) 1 amp NEB Q4H PRN PRN Reason: SHORT OF BREATH/WHEEZING Albuterol/Ipratropium (Duoneb -) 1 amp NEB RQID [facility] Aspirin (Asa -) 81 mg PO DAILY [facility] Last Admin: 04/22/19 09:50 Dose: 81 mg Dabigatran (Pradaxa -) 75 mg PO BID [facility] Last Admin: 04/22/19 09:50 Dose: 75 mg Digoxin (Lanoxin -) 0.125 mg PO HS [facility] Last Admin: 04/21/19 22:26 Dose: 0.125 mg Diltiazem HCl (Cardizem Cd -) 120 mg PO DAILY [facility] Last Admin: 04/22/19 09:50 Dose: 120 mg Furosemide (Lasix Injection -) 40 mg IVPUSH BIDLASIX [facility] Last Admin: 04/22/19 06:45 Dose: 40 mg Ceftriaxone Sodium 1 gm/ (Dextrose) 50 mls @ 100 mls/hr IVPB DAILY [facility]; Protocol Last Admin: 04/22/19 09:51 Dose: 100 mls/hr Azithromycin (Zithromax 500mg Ivpb (Pre-Docked)) 500 mg in 250 mls @ 250 mls/ hr IVPB DAILY [facility] Last Admin: 04/22/19 09:57 Dose: 250 mls/hr Insulin Aspart (Novolog Vial Sliding Scale -) 1 vial SQ ACHS [facility]; Protocol Last Admin: 04/22/19 06:43 Dose: Not Given Insulin Detemir (Levemir Vial) 10 units SQ AM [facility] Last Admin: 04/22/19 06:45 Dose: 10 units Methylprednisolone Sodium Succinate (Solu-Medrol -) 60 mg IVPUSH QID [facility] Last Admin: 04/22/19 09:52 Dose: 60 mg Pantoprazole Sodium (Protonix -) 40 mg PO DAILY [facility] Last Admin: 04/22/19 09:50 Dose: 40 mg Rosuvastatin Calcium (Crestor -) 20 mg PO HS [facility] - Objective Vital Signs: Vital Signs Temperature 98.0 F 04/22/19 08:06 Pulse Rate 54 L 04/22/19 08:06 Respiratory Rate 22 H 04/22/19 08:14 Blood Pressure 142/64 04/22/19 08:06 O2 Sat by Pulse Oximetry (%) 98 04/22/19 00:45 Constitutional: Yes: Mild Distress Cardiovascular: Yes: Pulse Irregular Respiratory: Yes: Diminished, On Nasal O2 Gastrointestinal: Yes: Soft Genitourinary: Yes: WNL Musculoskeletal: Yes: Muscle Weakness Integumentary: Yes: WNL Wound/Incision: Yes: Clean/Dry ...Motor Strength: LLE, RLE Psychiatric: Yes: WNL Labs: CBC, BMP 04/22/19 06:10 04/22/19 06:10 INR, PTT INR 1.40 (0.83-1.09) H 04/21/19 13:40 Problem List - Problems (1) CHF (congestive heart failure) Code(s): I50.9 - HEART FAILURE, UNSPECIFIED Qualifiers: Heart failure type: unspecified Heart failure chronicity: acute Qualified Code(s): I50.9 - Heart failure, unspecified (2) SOB (shortness of breath) Code(s): R06.02 - SHORTNESS OF BREATH (3) MURALI (acute kidney injury) Code(s): N17.9 - ACUTE KIDNEY FAILURE, UNSPECIFIED (4) Acute exacerbation of chronic obstructive pulmonary disease (COPD) Code(s): J44.1 - CHRONIC OBSTRUCTIVE PULMONARY DISEASE W (ACUTE) EXACERBATION (5) Arrhythmia Code(s): I49.9 - CARDIAC ARRHYTHMIA, UNSPECIFIED (6) Atrial fibrillation Code(s): I48.91 - UNSPECIFIED ATRIAL FIBRILLATION Qualifiers: Atrial fibrillation type: chronic (7) CAD S/P percutaneous coronary angioplasty Code(s): I25.10 - ATHSCL HEART DISEASE OF [place] CORONARY ARTERY W/O ANG PCTRS; Z98.61 - CORONARY ANGIOPLASTY STATUS (8) CHF exacerbation Code(s): I50.9 - HEART FAILURE, UNSPECIFIED Qualifiers: Heart failure type: unspecified Qualified Code(s): I50.9 - Heart failure, unspecified (9) Diabetes mellitus type 2, uncontrolled Code(s): E11.65 - TYPE 2 DIABETES MELLITUS WITH HYPERGLYCEMIA (10) Dyslipidemia Code(s): E78.5 - HYPERLIPIDEMIA, UNSPECIFIED (11) Mitral valve regurgitation Code(s): I34.0 - NONRHEUMATIC MITRAL (VALVE) INSUFFICIENCY Qualifiers: Cardiac valve disease etiology: etiology unspecified Qualified Code(s): I34.0 - Nonrheumatic mitral (valve) insufficiency (12) Pneumonia Code(s): J18.9 - PNEUMONIA, UNSPECIFIED ORGANISM Assessment/Plan ON TELEMETRY NO ACUTE ALARMS ON 02 NC CONTINUE IV ABX CEFTRIAXONE AND AZITHROMYCIN LASIX IV BID DAILY WEIGHTS PT EVAL OOB TO CHAIR MONITOR LABS DVT PROPHYLAXIS MOM X 1 FOR CONSTIPATION CXR IN MORNING
[2019-04-22] MEDS ORDERED: MAGNESIUM HYDROX 2400MG/30ML ORAL SUSPENSION 30 ML CUP PO ONE (10:53)
--- NOTE | 2019-04-22 11:21 | PN ---
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 + TROPONIN PLAN IV STEROIDS INHALED BRONCHODILATORS SUPPLEMENTAL O2 LASIX TREND TROPONIN MONITOR BLANCA LORA Problem List - Problems (1) Acute on chronic respiratory failure with hypoxia and hypercapnia Code(s): J96.21 - ACUTE AND CHRONIC RESPIRATORY FAILURE WITH HYPOXIA; J96.22 - ACUTE AND CHRONIC RESPIRATORY FAILURE WITH HYPERCAPNIA (2) SOB (shortness of breath) Code(s): R06.02 - SHORTNESS OF BREATH (3) MURALI (acute kidney injury) Code(s): N17.9 - ACUTE KIDNEY FAILURE, UNSPECIFIED (4) Atrial fibrillation Code(s): I48.91 - UNSPECIFIED ATRIAL FIBRILLATION Qualifiers: Atrial fibrillation type: chronic (5) CAD S/P percutaneous coronary angioplasty Code(s): I25.10 - ATHSCL HEART DISEASE OF [place] CORONARY ARTERY W/O ANG PCTRS; Z98.61 - CORONARY ANGIOPLASTY STATUS (6) CHF exacerbation Code(s): I50.9 - HEART FAILURE, UNSPECIFIED Qualifiers: Heart failure type: unspecified Qualified Code(s): I50.9 - Heart failure, unspecified (7) Diabetes Code(s): E11.9 - TYPE 2 DIABETES MELLITUS WITHOUT COMPLICATIONS Qualifiers: Diabetes mellitus type: other specified (including YULISA) Diabetes mellitus chcf insulin use: with chcf use Diabetes mellitus complication status: with unspecified complications (8) Dyslipidemia Code(s): E78.5 - HYPERLIPIDEMIA, UNSPECIFIED (9) Mitral valve regurgitation Code(s): I34.0 - NONRHEUMATIC MITRAL (VALVE) INSUFFICIENCY Qualifiers: Cardiac valve disease etiology: etiology unspecified Qualified Code(s): I34.0 - Nonrheumatic mitral (valve) insufficiency (10) Troponin I above reference range Code(s): R79.89 - OTHER SPECIFIED ABNORMAL FINDINGS OF BLOOD CHEMISTRY (11) Aortic stenosis Code(s): I35.0 - NONRHEUMATIC AORTIC (VALVE) STENOSIS
--- NOTE | 2019-04-22 12:48 | CONS ---
DATE OF CONSULTATION: 04/22/2019 REFERRING PHYSICIAN: Aman Russell MD HISTORY OF PRESENT ILLNESS: Patient is an 84-year-old female with past medical history of advanced COPD on home O2 3 L, ASHD, status post stents, severe pulmonary hypertension, congestive heart failure, atrial fibrillation, diabetes, [id number] , mitral regurgitation admitted to [facility] with the complaint of 3-day history of increasing shortness of breath, dyspnea on exertion and generalized weakness. Patient apparently for the past few days prior to admission she started developing increasing shortness of breath and weakness. She felt like she was not getting enough oxygen despite being on home O2. She states that she went to her PMD and was advised to the emergency room. In the ER she was felt to have possible CHF, as well as COPD. She was started on Lasix, as well as inhaled bronchodilators. Patient denies any fevers, or chills. She denies any nausea, vomiting or diaphoresis. She denies any chest pain, or palpitations. PAST MEDICAL HISTORY: Includes advanced COPD on home O2 3 L, ASHD, status post stents, severe pulmonary hypertension, [id number] , congestive heart failure, mitral regurgitation, diabetes, as well as hyperlipidemia atrial fibrillation. REVIEW OF SYSTEMS: Positive dyspnea. Positive dry cough. No fever. No chills. No chest pain. No palpitations. No abdominal pain. No lower extremity edema. MEDICATIONS: Current medications include Crestor, Novolog, Levemir, Lasix, aspirin, Protonix. SOCIAL HISTORY: No occupational exposures, history of tobacco use one pack per day greater than 60 years, quit 3 years ago. PHYSICAL EXAMINATION: General: On physical examination, patient is an elderly white female awake, alert, mildly dyspneic in no acute distress. Vital signs: She is afebrile. The heart rate is 54, blood pressure 142/64, respiratory rate is 22, O2 saturation is 97 on 3 L nasal cannula. HEENT: Normocephalic, atraumatic. Neck: Supple. Heart: Regular, S1, S2. Chest: Bilateral crackles throughout and a few scattered wheezes. Abdomen: Soft. Bowel sounds are positive. Extremities: No cyanosis, edema. LABORATORY STUDIES: BUN is 36, creatinine 1.2. Troponin is 0.26, repeat 0.17. BMP is 18,892. Venous blood gas pH of 7.40, pCO2 of 58, pO2 of less than 49, bicarbonate of 35 and saturation of 58. WBC is 2.6, hemoglobin 11, hematocrit 33.0 with a platelet count of 155,000. Chest x-ray increased markings bilaterally. IMPRESSION: 1. Acute on chronic hypoxemic hypercapnic respiratory failure secondary to likely chronic obstructive pulmonary disease with acute exacerbation. 2. Acute on chronic heart failure. 3. Atrial fibrillation. 4. Arteriosclerotic heart disease, status post stent. 5. Diabetes mellitus. 6. Severe pulmonary hypertension. 7. Lguz-be-bsxdewrc aortic stenosis. 8. Mitral regurgitation. 9. Positive troponin. 10. Likely underlying interstitial lung disease. PLAN: Inhaled bronchodilators. Supplemental O2 to maintain saturation greater than 90%. Lasix. Medrol . Trend troponins. Follow up chest x-rays. Monitor electrolytes. HOLLI LORA M.D. [id number] MTDD
--- NOTE | 2019-04-22 13:27 | CON.CARD ---
Consult Consult Specialty:: cardiology Reason for Consultation:: EHSAN - History of Present Illness History of Present Illness: 84 year old female with PMH Atrial Fibrillation COPD, ILD, home oxygen 3L, CAD sp previous stents and last cath in 2017 showed patent vessels, ho syncope and NSVT without ischemia on stress test in 2019 and post ILR placement. Echo 2018 with normal LV function and severe pulm HTN CHF, AFIB, DM presents to the ED with sob x3 days. She has chronic TP elevation. Feels much better today. - Past Medical History Cardio/Vascular: Yes: AFIB, CAD (S/P STENTING), CHF, HTN, Hyperlipdemia Pulmonary: Yes: Bronchitis, COPD, O2 Dependent, Pneumonia. No: Asthma, Previously Intubated, Pulmonary Embolus, Pulmonary Fibrosis, Sleep Apnea Musculoskeletal: Yes: Chronic low back pain Endocrine: Yes: Diabetes Mellitus - Alcohol/Substance Use Hx Alcohol Use: No History of Substance Use: reports: None - Smoking History Smoking history: Never smoked Have you smoked in the past 12 months: No Aproximately how many cigarettes per day: 0 If you are a former smoker, when did you quit?: 2 years ago - Social History ADL: Family Assistance ([employer]) History of Recent Travel: No Home Medications - Allergies Allergies/Adverse Reactions: Allergies Allergy/AdvReac Type Severity Reaction Status Date / Time No Known Allergies Allergy Verified 04/21/19 14:09 - Home Medications Home Medications: Ambulatory Orders Rosuvastatin [Crestor -] 20 mg PO DAILY 11/15/16 Aspirin [ASA -] 81 mg PO DAILY #30 tab.chew 11/19/16 Cholecalciferol (Vitamin D3) [Optimal D3] 50,000 unit PO WEEKLY 06/22/17 Dabigatran Etexilate Mesylate [Pradaxa -] 75 mg PO BID 06/22/17 Sitagliptin Phosphate [Januvia -] 50 mg PO DAILY@0700 06/22/17 Diltiazem Cd [Cardizem Cd -] 120 mg PO DAILY cap.cd.24h 07/07/17 Digoxin [Lanoxin -] 0.125 mg PO HS 02/08/19 Furosemide [Lasix -] 60 mg PO DAILY 02/08/19 Glyburide 5 mg PO DAILY 02/08/19 Linaclotide [Linzess] 72 mcg PO DAILY 02/08/19 Losartan Potassium 50 mg PO DAILY 04/22/19 Review of Systems - Review of Systems Constitutional: reports: No Symptoms Eyes: reports: No Symptoms HENT: reports: No Symptoms Neck: reports: No Symptoms Cardiovascular: reports: Edema, Shortness of Breath. denies: Chest Pain Respiratory: reports: Cough, SOB Gastrointestinal: reports: No Symptoms Genitourinary: reports: No Symptoms Vital Signs: Vital Signs Temperature 98.0 F 04/22/19 08:06 Pulse Rate 54 L 04/22/19 08:06 Respiratory Rate 22 H 04/22/19 08:14 Blood Pressure 142/64 04/22/19 08:06 O2 Sat by Pulse Oximetry (%) 98 04/22/19 00:45 Constitutional: Yes: Well Nourished, No Distress Eyes: Yes: Conjunctiva Clear, EOM Intact HENT: Yes: Atraumatic, Normocephalic Neck: Yes: Supple, Trachea Midline Respiratory: Yes: Regular, Rales Gastrointestinal: Yes: Normal Bowel Sounds, Soft Cardiovascular: Yes: Pulse Irregular JVD: Yes Heart Sounds: Yes: S1, S2 Murmur: Yes: Systolic Murmur (4/6 sys M) Edema: Yes - Other Data Labs, Other Data: CBC, BMP 04/22/19 06:10 04/22/19 06:10 INR, PTT INR 1.40 (0.83-1.09) H 04/21/19 13:40 Troponin, BNP 04/21/19 04/21/19 04/21/19 13:30 13:40 17:27 Troponin I 0.26 H 0.26 H B-Natriuretic Peptide 77668.5 H 04/22/19 06:10 Troponin I 0.17 H B-Natriuretic Peptide Troponin, BNP 04/21/19 04/21/19 04/21/19 13:30 13:40 17:27 Troponin I 0.26 H 0.26 H B-Natriuretic Peptide 89280.5 H 04/22/19 06:10 Troponin I 0.17 H B-Natriuretic Peptide Imaging - Results X-ray: Report Reviewed Problem List - Problems (1) Acute on chronic respiratory failure with hypoxia and hypercapnia Code(s): J96.21 - ACUTE AND CHRONIC RESPIRATORY FAILURE WITH HYPOXIA; J96.22 - ACUTE AND CHRONIC RESPIRATORY FAILURE WITH HYPERCAPNIA (2) CHF (congestive heart failure) Code(s): I50.9 - HEART FAILURE, UNSPECIFIED Qualifiers: Heart failure type: unspecified Heart failure chronicity: acute Qualified Code(s): I50.9 - Heart failure, unspecified Assessment/Plan COPD, ILD, with acute exacerbation CAD sp previous stents and last cath in 2017 showed patent vessels, recent stress test showed fixed defects and no ischemia. ho syncope and NSVT and post ILR placement. Severe pulm HTN HFpEF Chronic TP elevation 1. CAD Stable Has chronic TP elevation unchanged from prior. No myocardial ischemia. 2. CHF Acute diastolic CHF, ho mitral regurgitation and mild-moderate Aortic stenosis. Continue with IV lasix. Improving. Monitor weight and UO 3. Afib Telemetry shows nocturnal junctional bradycardia in the 30s. DC digoxin Continue with diltiazem. 4. NSVT with ichemic heart disease. Not on BB due to severity of lung disease. Monitor electrolytes daily. keep K>4, Mg >2
[2019-04-22] MEDS ORDERED: INSULIN (NOVOLOG) ASPART 100 UNITS/ML 10ML VIAL ONE (17:01)
[2019-04-23] MEDS: INSULIN (LEVEMIR) 100 UNITS/ML UNITS SQ SCH (06:29)
[2019-04-23] MEDS: INSULIN SLIDING SCALE (NOVOLOG) 1 VIAL SQ SCH ×4 (06:29→21:13)
[2019-04-23] MEDS: FUROSEMIDE 40 MG/4 ML INJECTABLE VIAL IVPUSH SCH (06:29)
[2019-04-23] MEDS: ALBUTEROL SO4 2.5/IPRATROPIUM 0.5 INH SOL 3 ML VIAL.NEB. NEB SCH ×4 (08:12→20:05)
[2019-04-23] MEDS ORDERED: cefTRIAXone SODIUM 1 GM VIAL ONE (09:37)
[2019-04-23] MEDS ORDERED: DEXTROSE 5%-WATER - 50 ML IVPB ONE (09:37)
[2019-04-23] MEDS: CEFTRIAXONE 1 GM in DEXTROSE 5%-WATER - 50 ML IVPB SCH (09:54)
[2019-04-23] MEDS: AZITHROMYCIN IVPB 500 MG/250 ML BAG IVPB SCH (09:56)
[2019-04-23] MEDS: methylPREDNISolone NA SUCC 40 MG/1 ML VIAL IVPUSH SCH ×2 (09:58→17:57)
[2019-04-23] MEDS: PANTOPRAZOLE 40 MG TABLET PO SCH (09:58)
[2019-04-23] MEDS: ASPIRIN 81 MG CHEWABLE TABLETS PO SCH (09:58)
--- NOTE | 2019-04-23 09:58 | EKG ---
Test Reason : Blood Pressure : / mmHG Vent. Rate : 071 BPM Atrial Rate : 080 BPM P-R Int : 000 ms QRS Dur : 110 ms QT Int : 394 ms P-R-T Axes : 000 107 197 degrees QTc Int : 428 ms ATRIAL FIBRILLATION WITH PREMATURE VENTRICULAR OR ABERRANTLY CONDUCTED COMPLEXES LOW VOLTAGE QRS ANTEROLATERAL INFARCT (CITED ON OR BEFORE 30-AUG-2016) ABNORMAL ECG WHEN COMPARED WITH ECG OF 08-FEB-2019 17:51, NO SIGNIFICANT CHANGE WAS FOUND Confirmed by JENNIFER PILLAI MD ([id number]) on 04/23/2019 9:58:11 AM Referred By: Confirmed By:JENNIFER PILLAI MD
[2019-04-23] MEDS: DABIGATRAN ETEXILATE MESYLATE 75 MG CAPSULE PO SCH ×2 (10:07→21:12)
--- NOTE | 2019-04-23 10:25 | PN ---
Progress Note, Physician Chief Complaint: AWAKE ALERT BREATHING BETTER HAD EPISODE OF DISORIENTATION THIS MORNING NOW ALERT AND ORIENTED X 3 C/O CONSTIPATION - Current Medication List Current Medications: Active Medications Acetaminophen (Tylenol -) 650 mg PO Q6H PRN PRN Reason: PAIN LEVEL 1-5 Albuterol Sulfate (Ventolin 0.042trength) -) 1 amp NEB Q4H PRN PRN Reason: SHORT OF BREATH/WHEEZING Albuterol/Ipratropium (Duoneb -) 1 amp NEB RQID [facility] Last Admin: 04/23/19 08:12 Dose: 1 amp Aspirin (Asa -) 81 mg PO DAILY [facility] Last Admin: 04/23/19 09:58 Dose: 81 mg Dabigatran (Pradaxa -) 75 mg PO BID [facility] Last Admin: 04/23/19 10:07 Dose: 75 mg Diltiazem HCl (Cardizem Cd -) 120 mg PO DAILY [facility] Last Admin: 04/23/19 09:58 Dose: 120 mg Docusate Sodium (Colace -) 100 mg PO BID PRN PRN Reason: CONSTIPATION Furosemide (Lasix Injection -) 40 mg IVPUSH DAILY [facility] Glycerin (Glycerin Suppository Adult -) 1 each AK DAILY PRN PRN Reason: CONSTIPATION Ceftriaxone Sodium 1 gm/ (Dextrose) 50 mls @ 100 mls/hr IVPB DAILY [facility]; Protocol Last Admin: 04/23/19 09:54 Dose: 100 mls/hr Azithromycin (Zithromax 500mg Ivpb (Pre-Docked)) 500 mg in 250 mls @ 250 mls/ hr IVPB DAILY [facility] Last Admin: 04/23/19 09:56 Dose: 250 mls/hr Insulin Aspart (Novolog Vial Sliding Scale -) 1 vial SQ ACHS [facility]; Protocol Last Admin: 04/23/19 06:29 Dose: 2 units Insulin Detemir (Levemir Vial) 10 units SQ AM [facility] Last Admin: 04/23/19 06:29 Dose: 10 units Methylprednisolone Sodium Succinate (Solu-Medrol -) 60 mg IVPUSH QID [facility] Last Admin: 04/23/19 09:58 Dose: 60 mg Pantoprazole Sodium (Protonix -) 40 mg PO DAILY [facility] Last Admin: 04/23/19 09:58 Dose: 40 mg Rosuvastatin Calcium (Crestor -) 20 mg PO HS [facility] - Objective Vital Signs: Vital Signs Temperature 98.2 F 04/23/19 05:47 Pulse Rate 62 04/23/19 05:47 Respiratory Rate 20 04/23/19 08:30 Blood Pressure 138/62 04/23/19 05:47 O2 Sat by Pulse Oximetry (%) 96 04/23/19 08:30 Constitutional: Yes: Mild Distress Cardiovascular: Yes: Pulse Irregular Respiratory: Yes: Diminished, On Nasal O2 Gastrointestinal: Yes: Soft Genitourinary: Yes: WNL Musculoskeletal: Yes: Joint Stiffness (CHRONIC ARTHRITIC CONDITION), Muscle Weakness Neurological: Yes: Alert ...Motor Strength: WNL Psychiatric: Yes: WNL Labs: CBC, BMP 04/22/19 06:10 04/22/19 06:10 INR, PTT INR 1.40 (0.83-1.09) H 04/21/19 13:40 Problem List - Problems (1) CHF (congestive heart failure) Code(s): I50.9 - HEART FAILURE, UNSPECIFIED Qualifiers: Heart failure type: unspecified Heart failure chronicity: acute Qualified Code(s): I50.9 - Heart failure, unspecified (2) SOB (shortness of breath) Code(s): R06.02 - SHORTNESS OF BREATH (3) MURALI (acute kidney injury) Code(s): N17.9 - ACUTE KIDNEY FAILURE, UNSPECIFIED (4) Acute exacerbation of chronic obstructive pulmonary disease (COPD) Code(s): J44.1 - CHRONIC OBSTRUCTIVE PULMONARY DISEASE W (ACUTE) EXACERBATION (5) Arrhythmia Code(s): I49.9 - CARDIAC ARRHYTHMIA, UNSPECIFIED (6) Atrial fibrillation Code(s): I48.91 - UNSPECIFIED ATRIAL FIBRILLATION Qualifiers: Atrial fibrillation type: chronic (7) CAD S/P percutaneous coronary angioplasty Code(s): I25.10 - ATHSCL HEART DISEASE OF [place] CORONARY ARTERY W/O ANG PCTRS; Z98.61 - CORONARY ANGIOPLASTY STATUS (8) CHF exacerbation Code(s): I50.9 - HEART FAILURE, UNSPECIFIED Qualifiers: Heart failure type: unspecified Qualified Code(s): I50.9 - Heart failure, unspecified (9) Diabetes mellitus type 2, uncontrolled Code(s): E11.65 - TYPE 2 DIABETES MELLITUS WITH HYPERGLYCEMIA (10) Dyslipidemia Code(s): E78.5 - HYPERLIPIDEMIA, UNSPECIFIED (11) Mitral valve regurgitation Code(s): I34.0 - NONRHEUMATIC MITRAL (VALVE) INSUFFICIENCY Qualifiers: Cardiac valve disease etiology: etiology unspecified Qualified Code(s): I34.0 - Nonrheumatic mitral (valve) insufficiency (12) Pneumonia Code(s): J18.9 - PNEUMONIA, UNSPECIFIED ORGANISM Assessment/Plan ON TELEMETRY NO ACUTE ALARMS ON 02 NC CONTINUE IV ABX CEFTRIAXONE AND AZITHROMYCIN LASIX IV CHANGED DAILY DAILY WEIGHTS PT EVAL OOB TO CHAIR MONITOR LABS DVT PROPHYLAXIS EN[place] X 1, COLACE CXR IN MORNING SHOWS IMPROVEMENT OF CHF/PNA
--- NOTE | 2019-04-23 10:48 | PN ---
Progress Note, Physician History of Present Illness: PULMONARY ALERT,FEELING BETTER,LESS DYSPNEIC - Current Medication List Current Medications: Active Medications Acetaminophen (Tylenol -) 650 mg PO Q6H PRN PRN Reason: PAIN LEVEL 1-5 Albuterol Sulfate (Ventolin 0.042trength) -) 1 amp NEB Q4H PRN PRN Reason: SHORT OF BREATH/WHEEZING Albuterol/Ipratropium (Duoneb -) 1 amp NEB RQID [facility] Last Admin: 04/23/19 08:12 Dose: 1 amp Aspirin (Asa -) 81 mg PO DAILY [facility] Last Admin: 04/23/19 09:58 Dose: 81 mg Dabigatran (Pradaxa -) 75 mg PO BID [facility] Last Admin: 04/23/19 10:07 Dose: 75 mg Diltiazem HCl (Cardizem Cd -) 120 mg PO DAILY [facility] Last Admin: 04/23/19 09:58 Dose: 120 mg Docusate Sodium (Colace -) 100 mg PO BID PRN PRN Reason: CONSTIPATION Furosemide (Lasix Injection -) 40 mg IVPUSH DAILY [facility] Glycerin (Glycerin Suppository Adult -) 1 each [place] DAILY PRN PRN Reason: CONSTIPATION Ceftriaxone Sodium 1 gm/ (Dextrose) 50 mls @ 100 mls/hr IVPB DAILY [facility]; Protocol Last Admin: 04/23/19 09:54 Dose: 100 mls/hr Azithromycin (Zithromax 500mg Ivpb (Pre-Docked)) 500 mg in 250 mls @ 250 mls/ hr IVPB DAILY [facility] Last Admin: 04/23/19 09:56 Dose: 250 mls/hr Insulin Aspart (Novolog Vial Sliding Scale -) 1 vial SQ ACHS [facility]; Protocol Last Admin: 04/23/19 06:29 Dose: 2 units Insulin Detemir (Levemir Vial) 10 units SQ AM [facility] Last Admin: 04/23/19 06:29 Dose: 10 units Methylprednisolone Sodium Succinate (Solu-Medrol -) 60 mg IVPUSH QID [facility] Last Admin: 04/23/19 09:58 Dose: 60 mg Pantoprazole Sodium (Protonix -) 40 mg PO DAILY [facility] Last Admin: 04/23/19 09:58 Dose: 40 mg Rosuvastatin Calcium (Crestor -) [address] [facility] - Objective Vital Signs: Vital Signs Temperature 98.2 F 04/23/19 05:47 Pulse Rate 62 04/23/19 05:47 Respiratory Rate 20 04/23/19 08:30 Blood Pressure 138/62 04/23/19 05:47 O2 Sat by Pulse Oximetry (%) 96 04/23/19 08:30 Constitutional: Yes: Calm, Thin Eyes: Yes: WNL HENT: Yes: WNL Neck: Yes: WNL Cardiovascular: Yes: Pulse Irregular, S1, S2 Respiratory: Yes: Rales (SCATTERED WHEEZES AND CRACKLES), Wheezes Gastrointestinal: Yes: Normal Bowel Sounds, Soft Extremities: Yes: WNL Edema: No Labs: CBC, BMP Problem List - Problems (1) Acute on chronic respiratory failure with hypoxia and hypercapnia Code(s): J96.21 - ACUTE AND CHRONIC RESPIRATORY FAILURE WITH HYPOXIA; J96.22 - ACUTE AND CHRONIC RESPIRATORY FAILURE WITH HYPERCAPNIA (2) SOB (shortness of breath) Code(s): R06.02 - SHORTNESS OF BREATH (3) MURALI (acute kidney injury) Code(s): N17.9 - ACUTE KIDNEY FAILURE, UNSPECIFIED (4) Atrial fibrillation Code(s): I48.91 - UNSPECIFIED ATRIAL FIBRILLATION Qualifiers: Atrial fibrillation type: chronic (5) CAD S/P percutaneous coronary angioplasty Code(s): I25.10 - ATHSCL HEART DISEASE OF [place] CORONARY ARTERY W/O ANG PCTRS; Z98.61 - CORONARY ANGIOPLASTY STATUS (6) CHF exacerbation Code(s): I50.9 - HEART FAILURE, UNSPECIFIED Qualifiers: Heart failure type: unspecified Qualified Code(s): I50.9 - Heart failure, unspecified (7) Diabetes Code(s): E11.9 - TYPE 2 DIABETES MELLITUS WITHOUT COMPLICATIONS Qualifiers: Diabetes mellitus type: other specified (including YULISA) Diabetes mellitus senior care insulin use: with senior care use Diabetes mellitus complication status: with unspecified complications (8) Dyslipidemia Code(s): E78.5 - HYPERLIPIDEMIA, UNSPECIFIED (9) Mitral valve regurgitation Code(s): I34.0 - NONRHEUMATIC MITRAL (VALVE) INSUFFICIENCY Qualifiers: Cardiac valve disease etiology: etiology unspecified Qualified Code(s): I34.0 - Nonrheumatic mitral (valve) insufficiency (10) Troponin I above reference range Code(s): R79.89 - OTHER SPECIFIED ABNORMAL FINDINGS OF BLOOD CHEMISTRY (11) Aortic stenosis Code(s): I35.0 - NONRHEUMATIC AORTIC (VALVE) STENOSIS Assessment/Plan IMP ACUTE ON CHRONIC HYPOXEMIC/HYPERCAPNEIC RESPIRATORY FAILURE COPD EXACERBATION CHF AFIB ASHD S/P STENT SEVERE PULMONARY HTN DM MILD-MODERATE LIKELY ILD + TROPONIN PLAN CONTINUE MEDROL INHALED BRONCHODILATORS SUPPLEMENTAL O2 LASIX TREND TROPONIN MONITOR [facility] Problem List - Problems (1) Acute on chronic respiratory failure with hypoxia and hypercapnia Code(s): J96.21 - ACUTE AND CHRONIC RESPIRATORY FAILURE WITH HYPOXIA; J96.22 - ACUTE AND CHRONIC RESPIRATORY FAILURE WITH HYPERCAPNIA (2) SOB (shortness of breath) Code(s): R06.02 - SHORTNESS OF BREATH (3) MURALI (acute kidney injury) Code(s): N17.9 - ACUTE KIDNEY FAILURE, UNSPECIFIED (4) Atrial fibrillation Code(s): I48.91 - UNSPECIFIED ATRIAL FIBRILLATION Qualifiers: Atrial fibrillation type: chronic (5) CAD S/P percutaneous coronary angioplasty Code(s): I25.10 - ATHSCL HEART DISEASE OF [place] CORONARY ARTERY W/O ANG PCTRS; Z98.61 - CORONARY ANGIOPLASTY STATUS (6) CHF exacerbation Code(s): I50.9 - HEART FAILURE, UNSPECIFIED Qualifiers: Heart failure type: unspecified Qualified Code(s): I50.9 - Heart failure, unspecified (7) Diabetes Code(s): E11.9 - TYPE 2 DIABETES MELLITUS WITHOUT COMPLICATIONS Qualifiers: Diabetes mellitus type: other specified (including YULISA) Diabetes mellitus long term care pharmacist insulin use: with senior care use Diabetes mellitus complication status: with unspecified complications (8) Dyslipidemia Code(s): E78.5 - HYPERLIPIDEMIA, UNSPECIFIED (9) Mitral valve regurgitation Code(s): I34.0 - NONRHEUMATIC MITRAL (VALVE) INSUFFICIENCY Qualifiers: Cardiac valve disease etiology: etiology unspecified Qualified Code(s): I34.0 - Nonrheumatic mitral (valve) insufficiency (10) Troponin I above reference range Code(s): R79.89 - OTHER SPECIFIED ABNORMAL FINDINGS OF BLOOD CHEMISTRY (11) Aortic stenosis Code(s): I35.0 - NONRHEUMATIC AORTIC (VALVE) STENOSIS
--- NOTE | 2019-04-23 16:20 | PN ---
Progress Note, Physician Chief Complaint: Cardiology FU Telem AIVR Less SOB Constipated. History of Present Illness: 84 year old female with PMH Atrial Fibrillation COPD, ILD, home oxygen 3L, CAD sp previous stents and last cath in 2017 showed patent vessels, ho syncope and NSVT without ischemia on stress test in 2019 and post ILR placement. Echo 2018 with normal LV function and severe pulm HTN CHF, AFIB, DM presents to the ED with sob x3 days. She has chronic TP elevation. Feels much better today. - Current Medication List Current Medications: Active Medications Acetaminophen (Tylenol -) 650 mg PO Q6H PRN PRN Reason: PAIN LEVEL 1-5 Albuterol Sulfate (Ventolin 0.042trength) -) 1 amp NEB Q4H PRN PRN Reason: SHORT OF BREATH/WHEEZING Albuterol/Ipratropium (Duoneb -) 1 amp NEB RQID [facility] Last Admin: 04/23/19 11:53 Dose: 1 amp Aspirin (Asa -) 81 mg PO DAILY [facility] Last Admin: 04/23/19 09:58 Dose: 81 mg Dabigatran (Pradaxa -) 75 mg PO BID [facility] Last Admin: 04/23/19 10:07 Dose: 75 mg Diltiazem HCl (Cardizem Cd -) 120 mg PO DAILY [facility] Last Admin: 04/23/19 09:58 Dose: 120 mg Docusate Sodium (Colace -) 100 mg PO BID PRN PRN Reason: CONSTIPATION Furosemide (Lasix Injection -) 40 mg IVPUSH DAILY [facility] Glycerin (Glycerin Suppository Adult -) 1 each [place] DAILY PRN PRN Reason: CONSTIPATION Insulin Aspart (Novolog Vial Sliding Scale -) 1 vial SQ ACHS [facility]; Protocol Last Admin: 04/23/19 12:13 Dose: 14 units Insulin Detemir (Levemir Vial) 10 units SQ AM [facility] Last Admin: 04/23/19 06:29 Dose: 10 units Methylprednisolone Sodium Succinate (Solu-Medrol -) 60 mg IVPUSH Q8H-IV [facility] Pantoprazole Sodium (Protonix -) 40 mg PO DAILY [facility] Last Admin: 04/23/19 09:58 Dose: 40 mg Rosuvastatin Calcium (Crestor -) 20 mg PO HS [facility] - Objective Vital Signs: Vital Signs Temperature 98.1 F 04/23/19 10:00 Pulse Rate 71 04/23/19 10:00 Respiratory Rate 20 04/23/19 10:00 Blood Pressure 130/45 L 04/23/19 10:00 O2 Sat by Pulse Oximetry (%) 96 04/23/19 08:30 Constitutional: Yes: Well Nourished, Mild Distress Eyes: Yes: Conjunctiva Clear HENT: Yes: Atraumatic, Normocephalic Neck: Yes: Supple, Trachea Midline Cardiovascular: Yes: JVD Respiratory: Yes: Regular, Rales, SOB Gastrointestinal: Yes: Normal Bowel Sounds Edema: No Labs: CBC, BMP 04/22/19 06:10 04/22/19 06:10 INR, PTT INR 1.40 (0.83-1.09) H 04/21/19 13:40 Problem List - Problems (1) Acute on chronic respiratory failure with hypoxia and hypercapnia Code(s): J96.21 - ACUTE AND CHRONIC RESPIRATORY FAILURE WITH HYPOXIA; J96.22 - ACUTE AND CHRONIC RESPIRATORY FAILURE WITH HYPERCAPNIA (2) CHF (congestive heart failure) Code(s): I50.9 - HEART FAILURE, UNSPECIFIED Qualifiers: Heart failure type: unspecified Heart failure chronicity: acute Qualified Code(s): I50.9 - Heart failure, unspecified Assessment/Plan COPD, ILD, with acute exacerbation CAD sp previous stents and last cath in 2017 showed patent vessels, recent stress test showed fixed defects and no ischemia. ho syncope and NSVT and post ILR placement. Severe pulm HTN HFpEF Chronic TP elevation 1. CAD Stable Has chronic TP elevation unchanged from prior. No myocardial ischemia. 2. CHF Acute diastolic CHF, ho mitral regurgitation and mild-moderate Aortic stenosis. Continue with IV lasix. Improving. Monitor weight and UO 3. Afib Continue with diltiazem. Continue pradaxa 4. NSVT with ichemic heart disease. Not on BB due to severity of lung disease. Monitor electrolytes daily. keep K>4, Mg >2
[2019-04-23] MEDS ORDERED: PT OWN MED DRAWER 7, Y5N ONE (20:59)
[2019-04-23] MEDS: DOCUSATE SODIUM 100 MG CAPSULE (FP) PO PRN (21:12)
[2019-04-23] MEDS: GLYCERIN 1 RECTAL SUPPOSITORY, ADULT PR PRN (22:05)
[2019-04-24] MEDS: methylPREDNISolone NA SUCC 40 MG/1 ML VIAL IVPUSH SCH ×3 (01:08→18:21)
[2019-04-24] MEDS: INSULIN (LEVEMIR) 100 UNITS/ML UNITS SQ SCH (06:26)
[2019-04-24] MEDS: INSULIN SLIDING SCALE (NOVOLOG) 1 VIAL SQ SCH ×4 (06:27→21:52)
[2019-04-24] MEDS: ALBUTEROL SO4 2.5/IPRATROPIUM 0.5 INH SOL 3 ML VIAL.NEB. NEB SCH ×4 (07:31→20:00)
--- NOTE | 2019-04-24 08:29 | PN ---
Progress Note, Physician Chief Complaint: ASLEEP COMFORTABLE DENIES CHEST PAIN STILL WITH DYSPNEA - Current Medication List Current Medications: Active Medications Acetaminophen (Tylenol -) 650 mg PO Q6H PRN PRN Reason: PAIN LEVEL 1-5 Albuterol Sulfate (Ventolin 0.042trength) -) 1 amp NEB Q4H PRN PRN Reason: SHORT OF BREATH/WHEEZING Albuterol/Ipratropium (Duoneb -) 1 amp NEB RQID [facility] Last Admin: 04/23/19 20:05 Dose: 1 amp Aspirin (Asa -) 81 mg PO DAILY [facility] Last Admin: 04/23/19 09:58 Dose: 81 mg Dabigatran (Pradaxa -) 75 mg PO BID [facility] Last Admin: 04/23/19 21:12 Dose: 75 mg Diltiazem HCl (Cardizem Cd -) 120 mg PO DAILY [facility] Last Admin: 04/23/19 09:58 Dose: 120 mg Docusate Sodium (Colace -) 100 mg PO BID PRN PRN Reason: CONSTIPATION Last Admin: 04/23/19 21:12 Dose: 100 mg Furosemide (Lasix Injection -) 40 mg IVPUSH DAILY [facility] Glycerin (Glycerin Suppository Adult -) 1 each [place] DAILY PRN PRN Reason: CONSTIPATION Last Admin: 04/23/19 22:05 Dose: 1 each Insulin Aspart (Novolog Vial Sliding Scale -) 1 vial SQ ACHS [facility]; Protocol Last Admin: 04/24/19 06:27 Dose: 2 units Insulin Detemir (Levemir Vial) 10 units SQ AM [facility] Last Admin: 04/24/19 06:26 Dose: 10 units Methylprednisolone Sodium Succinate (Solu-Medrol -) 60 mg IVPUSH Q8H-IV [facility] Last Admin: 04/24/19 01:08 Dose: 60 mg Pantoprazole Sodium (Protonix -) 40 mg PO DAILY [facility] Last Admin: 04/23/19 09:58 Dose: 40 mg Rosuvastatin Calcium (Crestor -) 20 mg PO HS [facility] - Objective Vital Signs: Vital Signs Temperature 97.9 F 04/24/19 05:35 Pulse Rate 73 04/24/19 05:35 Respiratory Rate 21 H 04/24/19 05:35 Blood Pressure 131/55 L 04/24/19 05:35 O2 Sat by Pulse Oximetry (%) 97 04/23/19 22:00 Constitutional: Yes: Mild Distress Cardiovascular: Yes: Pulse Irregular Respiratory: Yes: Diminished, On Nasal O2 Gastrointestinal: Yes: WNL Genitourinary: Yes: WNL Musculoskeletal: Yes: WNL Edema: No Peripheral Pulses WNL: Yes Neurological: Yes: Pre-Existing Deficit ...Motor Strength: LLE, RLE (MILD WEAKNESS) Labs: CBC, BMP 04/22/19 06:10 04/22/19 06:10 INR, PTT INR 1.40 (0.83-1.09) H 04/21/19 13:40 Problem List - Problems (1) CHF (congestive heart failure) Code(s): I50.9 - HEART FAILURE, UNSPECIFIED Qualifiers: Heart failure type: unspecified Heart failure chronicity: acute Qualified Code(s): I50.9 - Heart failure, unspecified (2) SOB (shortness of breath) Code(s): R06.02 - SHORTNESS OF BREATH (3) MURALI (acute kidney injury) Code(s): N17.9 - ACUTE KIDNEY FAILURE, UNSPECIFIED (4) Acute exacerbation of chronic obstructive pulmonary disease (COPD) Code(s): J44.1 - CHRONIC OBSTRUCTIVE PULMONARY DISEASE W (ACUTE) EXACERBATION (5) Arrhythmia Code(s): I49.9 - CARDIAC ARRHYTHMIA, UNSPECIFIED (6) Atrial fibrillation Code(s): I48.91 - UNSPECIFIED ATRIAL FIBRILLATION Qualifiers: Atrial fibrillation type: chronic (7) CAD S/P percutaneous coronary angioplasty Code(s): I25.10 - ATHSCL HEART DISEASE OF [place] CORONARY ARTERY W/O ANG PCTRS; Z98.61 - CORONARY ANGIOPLASTY STATUS (8) CHF exacerbation Code(s): I50.9 - HEART FAILURE, UNSPECIFIED Qualifiers: Heart failure type: unspecified Qualified Code(s): I50.9 - Heart failure, unspecified (9) Diabetes mellitus type 2, uncontrolled Code(s): E11.65 - TYPE 2 DIABETES MELLITUS WITH HYPERGLYCEMIA (10) Dyslipidemia Code(s): E78.5 - HYPERLIPIDEMIA, UNSPECIFIED (11) Mitral valve regurgitation Code(s): I34.0 - NONRHEUMATIC MITRAL (VALVE) INSUFFICIENCY Qualifiers: Cardiac valve disease etiology: etiology unspecified Qualified Code(s): I34.0 - Nonrheumatic mitral (valve) insufficiency (12) Pneumonia Code(s): J18.9 - PNEUMONIA, UNSPECIFIED ORGANISM Assessment/Plan ON TELEMETRY NO ACUTE ALARMS CAN DC TELEMETRY ON 02 NC CONTINUE IV ABX CEFTRIAXONE AND AZITHROMYCIN CAN STOP TAPER STEROIDS LASIX IV CHANGED DAILY DAILY [facility] PT EVAL OOB TO CHAIR MONITOR LABS DVT PROPHYLAXIS ENEMA X 1, COLACE CXR YESTERDAY SHOWS IMPROVEMENT OF CHF/PNA
[2019-04-24] MEDS ORDERED: PT OWN MED DRAWER 7, Y5N ONE (08:52)
[2019-04-24] MEDS ORDERED: FUROSEMIDE 40 MG/4 ML INJECTABLE VIAL IVPUSH SCH (10:00)
[2019-04-24] MEDS: DABIGATRAN ETEXILATE MESYLATE 75 MG CAPSULE PO SCH ×2 (10:01→21:35)
[2019-04-24] MEDS: ASPIRIN 81 MG CHEWABLE TABLETS PO SCH (10:01)
[2019-04-24] MEDS: PANTOPRAZOLE 40 MG TABLET PO SCH (10:01)
[2019-04-24] MEDS: DOCUSATE SODIUM 100 MG CAPSULE (FP) PO PRN (10:01)
[2019-04-24] MEDS ORDERED: INSULIN (NOVOLOG) ASPART 100 UNITS/ML 10ML VIAL ONE (12:23)
--- NOTE | 2019-04-24 12:37 | PN ---
Progress Note (short form) - Note Progress Note: PULMONARY Breathing better but still short of breath and nonproductive cough. No fevers. Vital Signs Period Temp Pulse Resp BP Sys/Lam Pulse Ox Last 24 Hr 97.1 F-97.9 F 69-78 20-24 120-143/46-69 97-97 Gen: mildly tachypneic with speaking Heart: irregular Lung: basilar rales Abd: soft, nontender Ext: no edema CBC, BMP 04/22/19 06:10 04/22/19 06:10 Active Medications Acetaminophen (Tylenol -) 650 mg PO Q6H PRN PRN Reason: PAIN LEVEL 1-5 Albuterol Sulfate (Ventolin 0.042trength) -) 1 amp NEB Q4H PRN PRN Reason: SHORT OF BREATH/WHEEZING Albuterol/Ipratropium (Duoneb -) 1 amp NEB RQID [facility] Last Admin: 04/24/19 07:31 Dose: 1 amp Aspirin (Asa -) 81 mg PO DAILY [facility] Last Admin: 04/24/19 10:01 Dose: 81 mg Dabigatran (Pradaxa -) 75 mg PO BID [facility] Last Admin: 04/24/19 10:01 Dose: 75 mg Diltiazem HCl (Cardizem Cd -) 120 mg PO DAILY [facility] Last Admin: 04/24/19 10:01 Dose: 120 mg Docusate Sodium (Colace -) 100 mg PO BID PRN PRN Reason: CONSTIPATION Last Admin: 04/24/19 10:01 Dose: 100 mg Furosemide (Lasix Injection -) 40 mg IVPUSH DAILY [facility] Last Admin: 04/24/19 10:01 Dose: 40 mg Glycerin (Glycerin Suppository Adult -) 1 each [place] DAILY PRN PRN Reason: CONSTIPATION Last Admin: 04/23/19 22:05 Dose: 1 each Insulin Aspart (Novolog Vial Sliding Scale -) 1 vial SQ ACHS [facility]; Protocol Last Admin: 04/24/19 11:35 Dose: 5 units Insulin Detemir (Levemir Vial) 10 units SQ AM [facility] Last Admin: 04/24/19 06:26 Dose: 10 units Methylprednisolone Sodium Succinate (Solu-Medrol -) 60 mg IVPUSH Q8H-IV [facility] Last Admin: 04/24/19 10:00 Dose: 60 mg Pantoprazole Sodium (Protonix -) 40 mg PO DAILY [facility] Last Admin: 04/24/19 10:01 Dose: 40 mg Rosuvastatin Calcium (Crestor -) 20 mg PO HS [facility] A/P Acute on Chronic Hypoxic and Hypercapneic Respiratory Failure Acute COPD Exacerbation LV Diastolic Dysfunction Pulmonary HTN Atrial Fibrillation CAD +Troponins likely Demand Ischemia Aortic Stenosis Hyperlipidemia DM - taper medrol to 40mg q8h - inhaled bronchodilators - O2 to keep Spo2 >90% - rate control - continue anticoagulation - pt requesting something for anxiety
[2019-04-24] MEDS ORDERED: ALPRAZolam 0.25 MG TABLET PO ONE (12:39)
--- NOTE | 2019-04-24 16:00 | PN ---
Progress Note, Physician History of Present Illness: pt seen and examined today in nad. no overnight events. no new complaints. - Current Medication List Current Medications: Active Medications Acetaminophen (Tylenol -) 650 mg PO Q6H PRN PRN Reason: PAIN LEVEL 1-5 Albuterol Sulfate (Ventolin 0.042trength) -) 1 amp NEB Q4H PRN PRN Reason: SHORT OF BREATH/WHEEZING Albuterol/Ipratropium (Duoneb -) 1 amp NEB RQID [facility] Last Admin: 04/24/19 07:31 Dose: 1 amp Aspirin (Asa -) 81 mg PO DAILY [facility] Last Admin: 04/24/19 10:01 Dose: 81 mg Dabigatran (Pradaxa -) 75 mg PO BID [facility] Last Admin: 04/24/19 10:01 Dose: 75 mg Diazepam (Valium -) 2 mg PO Q12H PRN PRN Reason: ANXIETY Diltiazem HCl (Cardizem Cd -) 120 mg PO DAILY [facility] Last Admin: 04/24/19 10:01 Dose: 120 mg Docusate Sodium (Colace -) 100 mg PO BID PRN PRN Reason: CONSTIPATION Last Admin: 04/24/19 10:01 Dose: 100 mg Furosemide (Lasix Injection -) 40 mg IVPUSH DAILY [facility] Last Admin: 04/24/19 10:01 Dose: 40 mg Glycerin (Glycerin Suppository Adult -) 1 each [place] DAILY PRN PRN Reason: CONSTIPATION Last Admin: 04/23/19 22:05 Dose: 1 each Insulin Aspart (Novolog Vial Sliding Scale -) 1 vial SQ ACHS [facility]; Protocol Last Admin: 04/24/19 11:35 Dose: 5 units Insulin Detemir (Levemir Vial) 10 units SQ AM [facility] Last Admin: 04/24/19 06:26 Dose: 10 units Methylprednisolone Sodium Succinate (Solu-Medrol -) 40 mg IVPUSH Q8H-IV [facility] Pantoprazole Sodium (Protonix -) 40 mg PO DAILY [facility] Last Admin: 04/24/19 10:01 Dose: 40 mg Rosuvastatin Calcium (Crestor -) 20 mg PO HS [facility] - Objective Vital Signs: Vital Signs Temperature 98.1 F 04/24/19 14:00 Pulse Rate 87 04/24/19 14:00 Respiratory Rate 21 H 04/24/19 05:35 Blood Pressure 100/75 04/24/19 14:00 O2 Sat by Pulse Oximetry (%) 97 04/23/19 22:00 Constitutional: Yes: No Distress, Calm Eyes: Yes: Conjunctiva Clear, EOM Intact HENT: Yes: Atraumatic, Normocephalic Neck: Yes: Supple, Trachea Midline Cardiovascular: Yes: Regular Rate and Rhythm, S1, S2. No: Bradycardia, Tachycardia, Pulse Irregular, Bruit, JVD, Gallop, Murmur, Rub, S3, S4, Varicosities Respiratory: Yes: Regular, Diminished, On Nasal O2, SOB. No: Rales, Rhonchi Gastrointestinal: Yes: Normal Bowel Sounds, Soft. No: Distention, Tenderness Musculoskeletal: Yes: WNL Extremities: Yes: WNL Edema: No Peripheral Pulses WNL: Yes Peripheral Pulses: Left Doralis Pedis: 2+, Right Dorsalis Pedis: 2+ Neurological: Yes: Alert, Oriented Psychiatric: Yes: Alert, Oriented Labs: CBC, BMP 04/22/19 06:10 04/22/19 06:10 INR, PTT INR 1.40 (0.83-1.09) H 04/21/19 13:40 - ....Imaging Chest X-ray: Report Reviewed, Image Reviewed EKG: Report Reviewed, Image Reviewed Other: Report Reviewed, Image Reviewed (tele-pvcs, couplets triplets, no further significant runs of nsvt) Assessment/Plan COPD, ILD, with acute exacerbation CAD sp previous stents and last cath in 2017 showed patent vessels, recent stress test showed fixed defects and no ischemia. ho syncope and NSVT and post ILR placement. Severe pulm HTN HFpEF Chronic TP elevation 1. CAD Stable Has chronic TP elevation unchanged from prior. No myocardial ischemia. 2. CHF Acute diastolic CHF, ho mitral regurgitation and mild-moderate Aortic stenosis. volume status improving, near euvolemic Continue with IV lasix. Monitor weight and strict I/Os monitor blood work bun/creat, electrolytes and replete as needed needs repeat chemistry panel would change to po Lasix tomorrow. 3. Afib Continue with diltiazem. Continue pradaxa 4. NSVT No further long runs of nsvt pvcs, couplets, triplets with ichemic heart disease. Not on BB due to severity of lung disease. Monitor electrolytes daily. keep K>4, Mg >2
[2019-04-24] MEDS: diazePAM 2 MG TABLET PO PRN (21:48)
[2019-04-25] MEDS: methylPREDNISolone NA SUCC 40 MG/1 ML VIAL IVPUSH SCH ×2 (01:22→09:38)
[2019-04-25] MEDS: INSULIN SLIDING SCALE (NOVOLOG) 1 VIAL SQ SCH ×4 (06:30→23:17)
[2019-04-25] MEDS: INSULIN (LEVEMIR) 100 UNITS/ML UNITS SQ SCH (06:30)
[2019-04-25] MEDS ORDERED: INSULIN (NOVOLOG) ASPART 100 UNITS/ML 10ML VIAL ONE (07:12)
[2019-04-25] MEDS: ALBUTEROL SO4 2.5/IPRATROPIUM 0.5 INH SOL 3 ML VIAL.NEB. NEB SCH ×4 (08:07→20:50)
[2019-04-25] MEDS: PANTOPRAZOLE 40 MG TABLET PO SCH (09:36)
[2019-04-25] MEDS: DOCUSATE SODIUM 100 MG CAPSULE (FP) PO PRN (09:36)
[2019-04-25] MEDS: FUROSEMIDE 20 MG TABLET (FP) PO SCH (09:37)
[2019-04-25] MEDS: ASPIRIN 81 MG CHEWABLE TABLETS PO SCH (09:37)
[2019-04-25] MEDS: DABIGATRAN ETEXILATE MESYLATE 75 MG CAPSULE PO SCH ×2 (09:38→23:17)
--- NOTE | 2019-04-25 09:49 | PN ---
Progress Note, Physician Chief Complaint: lying flat and comfortable tele no further VT, some PVC's. History of Present Illness: 84 F history of COPD, ILD, with acute exacerbation CAD sp previous stents and last cath in 2017 showed patent vessels, recent stress test showed fixed defects and no ischemia. ho syncope and NSVT and post ILR placement. Severe pulm HTN HFpEF Chronic TP elevation - Current Medication List Current Medications: Active Medications Acetaminophen (Tylenol -) 650 mg PO Q6H PRN PRN Reason: PAIN LEVEL 1-5 Albuterol Sulfate (Ventolin 0.042trength) -) 1 amp NEB Q4H PRN PRN Reason: SHORT OF BREATH/WHEEZING Albuterol/Ipratropium (Duoneb -) 1 amp NEB RQID [facility] Last Admin: 04/24/19 20:00 Dose: 1 amp Aspirin (Asa -) 81 mg PO DAILY [facility] Last Admin: 04/25/19 09:37 Dose: 81 mg Dabigatran (Pradaxa -) 75 mg PO BID [facility] Last Admin: 04/25/19 09:38 Dose: 75 mg Diazepam (Valium -) 2 mg PO Q12H PRN PRN Reason: ANXIETY Last Admin: 04/24/19 21:48 Dose: 2 mg Diltiazem HCl (Cardizem Cd -) 120 mg PO DAILY [facility] Last Admin: 04/25/19 09:36 Dose: 120 mg Docusate Sodium (Colace -) 100 mg PO BID PRN PRN Reason: CONSTIPATION Last Admin: 04/25/19 09:36 Dose: 100 mg Furosemide (Lasix -) 60 mg PO DAILY [facility] Last Admin: 04/25/19 09:37 Dose: 60 mg Glycerin (Glycerin Suppository Adult -) 1 each [place] DAILY PRN PRN Reason: CONSTIPATION Last Admin: 04/23/19 22:05 Dose: 1 each Insulin Aspart (Novolog Vial Sliding Scale -) 1 vial SQ ACHS [facility]; Protocol Last Admin: 04/25/19 06:30 Dose: 5 units Insulin Detemir (Levemir Vial) 10 units SQ AM [facility] Last Admin: 04/25/19 06:30 Dose: 10 units Methylprednisolone Sodium Succinate (Solu-Medrol -) 40 mg IVPUSH Q8H-IV [facility] Last Admin: 04/25/19 09:38 Dose: 40 mg Pantoprazole Sodium (Protonix -) 40 mg PO DAILY [facility] Last Admin: 04/25/19 09:36 Dose: 40 mg Rosuvastatin Calcium (Crestor -) 20 mg PO [facility] - Objective Vital Signs: Vital Signs Temperature 97.2 F L 04/24/19 17:00 Pulse Rate 74 04/24/19 17:00 Respiratory Rate 20 04/24/19 17:00 Blood Pressure 127/52 L 04/24/19 17:00 O2 Sat by Pulse Oximetry (%) 97 04/23/19 22:00 Constitutional: Yes: No Distress, Calm Eyes: Yes: EOM Intact HENT: Yes: Normocephalic Neck: Yes: Trachea Midline Cardiovascular: Yes: Regular Rate and Rhythm Respiratory: Yes: Regular, CTA Bilaterally Gastrointestinal: Yes: Normal Bowel Sounds, Soft Extremities: Yes: WNL Edema: No Peripheral Pulses WNL: Yes Labs: CBC, BMP 04/22/19 06:10 04/22/19 06:10 INR, PTT INR 1.40 (0.83-1.09) H 04/21/19 13:40 Assessment/Plan She is an 84F COPD, ILD, with acute exacerbation CAD sp previous stents and last cath in 2017 showed patent vessels, recent stress test showed fixed defects and no ischemia. ho syncope and NSVT and post ILR placement. Severe pulm HTN HFpEF Chronic TP elevation 1. CAD Stable Has chronic TP elevation unchanged from prior. No myocardial ischemia. 2. CHF Acute diastolic CHF, ho mitral regurgitation and mild-moderate Aortic stenosis. volume status improving, near euvolemic Continue with IV lasix. Monitor weight and strict I/Os monitor blood work bun/creat, electrolytes and replete as needed needs repeat chemistry panel would change to po Lasix 60 mg daily. 3. Afib Continue with diltiazem. Continue pradaxa 4. NSVT No further long runs of nsvt pvcs, couplets, triplets with ichemic heart disease. Not on BB due to severity of lung disease. Monitor electrolytes daily. keep K>4, Mg >2 continue telemetry one more day.
--- NOTE | 2019-04-25 10:40 | PN ---
Progress Note, Physician History of Present Illness: PULMONARY FEELING BETTETR,LESS DYSPNEIC,DROWSY WAS GIVEN VALIUM EARLIER SECONDARY TO AGITATION - Current Medication List Current Medications: Active Medications Acetaminophen (Tylenol -) 650 mg PO Q6H PRN PRN Reason: PAIN LEVEL 1-5 Albuterol Sulfate (Ventolin 0.042trength) -) 1 amp NEB Q4H PRN PRN Reason: SHORT OF BREATH/WHEEZING Albuterol/Ipratropium (Duoneb -) 1 amp NEB RQID [facility] Last Admin: 04/24/19 20:00 Dose: 1 amp Aspirin (Asa -) 81 mg PO DAILY [facility] Last Admin: 04/25/19 09:37 Dose: 81 mg Dabigatran (Pradaxa -) 75 mg PO BID [facility] Last Admin: 04/25/19 09:38 Dose: 75 mg Diazepam (Valium -) 2 mg PO Q12H PRN PRN Reason: ANXIETY Last Admin: 04/24/19 21:48 Dose: 2 mg Diltiazem HCl (Cardizem Cd -) 120 mg PO DAILY [facility] Last Admin: 04/25/19 09:36 Dose: 120 mg Docusate Sodium (Colace -) 100 mg PO BID PRN PRN Reason: CONSTIPATION Last Admin: 04/25/19 09:36 Dose: 100 mg Furosemide (Lasix -) 60 mg PO DAILY [facility] Last Admin: 04/25/19 09:37 Dose: 60 mg Glycerin (Glycerin Suppository Adult -) 1 each [place] DAILY PRN PRN Reason: CONSTIPATION Last Admin: 04/23/19 22:05 Dose: 1 each Insulin Aspart (Novolog Vial Sliding Scale -) 1 vial SQ ACHS [facility]; Protocol Last Admin: 04/25/19 06:30 Dose: 5 units Insulin Detemir (Levemir Vial) 10 units SQ AM [facility] Last Admin: 04/25/19 06:30 Dose: 10 units Methylprednisolone Sodium Succinate (Solu-Medrol -) 40 mg IVPUSH Q8H-IV [facility] Last Admin: 04/25/19 09:38 Dose: 40 mg Pantoprazole Sodium (Protonix -) 40 mg PO DAILY [facility] Last Admin: 04/25/19 09:36 Dose: 40 mg Rosuvastatin Calcium (Crestor -) 20 mg PO HS [facility] - Objective Vital Signs: Vital Signs Temperature 97.2 F L 04/24/19 17:00 Pulse Rate 74 04/24/19 17:00 Respiratory Rate 20 04/24/19 17:00 Blood Pressure 127/52 L 04/24/19 17:00 O2 Sat by Pulse Oximetry (%) 97 04/23/19 22:00 Constitutional: Yes: Well Nourished, Calm Eyes: Yes: WNL HENT: Yes: WNL Neck: Yes: WNL Cardiovascular: Yes: Pulse Irregular, S1, S2 Respiratory: Yes: Rales (SCATTERED RALES BILATERALLY), Wheezes (FEW WHEEZES) Gastrointestinal: Yes: Normal Bowel Sounds, Soft Extremities: Yes: WNL Edema: No Labs: CBC, BMP 04/22/19 06:10 04/22/19 06:10 INR, PTT INR 1.40 (0.83-1.09) H 04/21/19 13:40 Problem List - Problems (1) Acute on chronic respiratory failure with hypoxia and hypercapnia Code(s): J96.21 - ACUTE AND CHRONIC RESPIRATORY FAILURE WITH HYPOXIA; J96.22 - ACUTE AND CHRONIC RESPIRATORY FAILURE WITH HYPERCAPNIA (2) SOB (shortness of breath) Code(s): R06.02 - SHORTNESS OF BREATH (3) MURALI (acute kidney injury) Code(s): N17.9 - ACUTE KIDNEY FAILURE, UNSPECIFIED (4) Atrial fibrillation Code(s): I48.91 - UNSPECIFIED ATRIAL FIBRILLATION Qualifiers: Atrial fibrillation type: chronic (5) CAD S/P percutaneous coronary angioplasty Code(s): I25.10 - ATHSCL HEART DISEASE OF [place] CORONARY ARTERY W/O ANG PCTRS; Z98.61 - CORONARY ANGIOPLASTY STATUS (6) CHF exacerbation Code(s): I50.9 - HEART FAILURE, UNSPECIFIED Qualifiers: Heart failure type: unspecified Qualified Code(s): I50.9 - Heart failure, unspecified (7) Diabetes Code(s): E11.9 - TYPE 2 DIABETES MELLITUS WITHOUT COMPLICATIONS Qualifiers: Diabetes mellitus type: other specified (including YULISA) Diabetes mellitus termite control servicer insulin use: with termite control servicer use Diabetes mellitus complication status: with unspecified complications (8) Dyslipidemia Code(s): E78.5 - HYPERLIPIDEMIA, UNSPECIFIED (9) Mitral valve regurgitation Code(s): I34.0 - NONRHEUMATIC MITRAL (VALVE) INSUFFICIENCY Qualifiers: Cardiac valve disease etiology: etiology unspecified Qualified Code(s): I34.0 - Nonrheumatic mitral (valve) insufficiency (10) Troponin I above reference range Code(s): R79.89 - OTHER SPECIFIED ABNORMAL FINDINGS OF BLOOD CHEMISTRY (11) Aortic stenosis Code(s): I35.0 - NONRHEUMATIC AORTIC (VALVE) STENOSIS Assessment/Plan IMP ACUTE ON CHRONIC HYPOXEMIC/HYPERCAPNEIC RESPIRATORY FAILURE COPD EXACERBATION IMPROVING CHF AFIB ASHD S/P STENT SEVERE PULMONARY HTN DM MILD-MODERATE LIKELY ILD + TROPONIN PLAN CONTINUE MEDROL INHALED BRONCHODILATORS SUPPLEMENTAL O2 LASIX TREND TROPONIN MONITOR BLANCA LORA Problem List - Problems (1) Acute on chronic respiratory failure with hypoxia and hypercapnia Code(s): J96.21 - ACUTE AND CHRONIC RESPIRATORY FAILURE WITH HYPOXIA; J96.22 - ACUTE AND CHRONIC RESPIRATORY FAILURE WITH HYPERCAPNIA (2) SOB (shortness of breath) Code(s): R06.02 - SHORTNESS OF BREATH (3) MURALI (acute kidney injury) Code(s): N17.9 - ACUTE KIDNEY FAILURE, UNSPECIFIED (4) Atrial fibrillation Code(s): I48.91 - UNSPECIFIED ATRIAL FIBRILLATION Qualifiers: Atrial fibrillation type: chronic (5) CAD S/P percutaneous coronary angioplasty Code(s): I25.10 - ATHSCL HEART DISEASE OF [place] CORONARY ARTERY W/O ANG PCTRS; Z98.61 - CORONARY ANGIOPLASTY STATUS (6) CHF exacerbation Code(s): I50.9 - HEART FAILURE, UNSPECIFIED Qualifiers: Heart failure type: unspecified Qualified Code(s): I50.9 - Heart failure, unspecified (7) Diabetes Code(s): E11.9 - TYPE 2 DIABETES MELLITUS WITHOUT COMPLICATIONS Qualifiers: Diabetes mellitus type: other specified (including YULISA) Diabetes mellitus correction insulin use: with correction use Diabetes mellitus complication status: with unspecified complications (8) Dyslipidemia Code(s): E78.5 - HYPERLIPIDEMIA, UNSPECIFIED (9) Mitral valve regurgitation Code(s): I34.0 - NONRHEUMATIC MITRAL (VALVE) INSUFFICIENCY Qualifiers: Cardiac valve disease etiology: etiology unspecified Qualified Code(s): I34.0 - Nonrheumatic mitral (valve) insufficiency (10) Troponin I above reference range Code(s): R79.89 - OTHER SPECIFIED ABNORMAL FINDINGS OF BLOOD CHEMISTRY (11) Aortic stenosis Code(s): I35.0 - NONRHEUMATIC AORTIC (VALVE) STENOSIS
--- NOTE | 2019-04-25 16:32 | PN ---
Progress Note, Physician Chief Complaint: AWAKE ALERT TELEMETRY ALARMS NSSVT DENIES CHEST PAIN OR SOB C/O CONSTIPATION - Current Medication List Current Medications: Active Medications Acetaminophen (Tylenol -) 650 mg PO Q6H PRN PRN Reason: PAIN LEVEL 1-5 Albuterol Sulfate (Ventolin 0.042trength) -) 1 amp NEB Q4H PRN PRN Reason: SHORT OF BREATH/WHEEZING Albuterol/Ipratropium (Duoneb -) 1 amp NEB RQID [facility] Last Admin: 04/25/19 08:07 Dose: 1 amp Aspirin (Asa -) 81 mg PO DAILY [facility] Last Admin: 04/25/19 09:37 Dose: 81 mg Dabigatran (Pradaxa -) 75 mg PO BID [facility] Last Admin: 04/25/19 09:38 Dose: 75 mg Diazepam (Valium -) 2 mg PO Q12H PRN PRN Reason: ANXIETY Last Admin: 04/24/19 21:48 Dose: 2 mg Diltiazem HCl (Cardizem Cd -) 120 mg PO DAILY [facility] Last Admin: 04/25/19 09:36 Dose: 120 mg Docusate Sodium (Colace -) 100 mg PO BID PRN PRN Reason: CONSTIPATION Last Admin: 04/25/19 09:36 Dose: 100 mg Furosemide (Lasix -) 60 mg PO DAILY [facility] Last Admin: 04/25/19 09:37 Dose: 60 mg Glycerin (Glycerin Suppository Adult -) 1 each [place] DAILY PRN PRN Reason: CONSTIPATION Last Admin: 04/23/19 22:05 Dose: 1 each Insulin Aspart (Novolog Vial Sliding Scale -) 1 vial SQ ACHS [facility]; Protocol Last Admin: 04/25/19 11:44 Dose: 7 units Insulin Detemir (Levemir Vial) 10 units SQ AM [facility] Last Admin: 04/25/19 06:30 Dose: 10 units Methylprednisolone Sodium Succinate (Solu-Medrol -) 40 mg IVPUSH BID [facility] Pantoprazole Sodium (Protonix -) 40 mg PO DAILY [facility] Last Admin: 04/25/19 09:36 Dose: 40 mg Rosuvastatin Calcium (Crestor -) 20 mg PO HS [facility] - Objective Vital Signs: Vital Signs Temperature 97.2 F L 04/24/19 17:00 Pulse Rate 74 04/24/19 17:00 Respiratory Rate 20 04/24/19 17:00 Blood Pressure 127/52 L 04/24/19 17:00 O2 Sat by Pulse Oximetry (%) 97 04/23/19 22:00 Constitutional: Yes: Mild Distress Cardiovascular: Yes: Pulse Irregular Respiratory: Yes: Diminished, On Nasal O2 Gastrointestinal: Yes: Soft Genitourinary: Yes: Incontinence Musculoskeletal: Yes: Muscle Weakness Edema: Yes Edema: LLE: Trace, RLE: Trace Peripheral Pulses WNL: Yes Integumentary: Yes: WNL Wound/Incision: Yes: Clean/Dry Neurological: Yes: Pre-Existing Deficit ...Motor Strength: LLE, RLE Psychiatric: Yes: Other Labs: CBC, BMP 04/22/19 06:10 04/22/19 06:10 INR, PTT INR 1.40 (0.83-1.09) H 04/21/19 13:40 Problem List - Problems (1) CHF (congestive heart failure) Code(s): I50.9 - HEART FAILURE, UNSPECIFIED Qualifiers: Heart failure type: unspecified Heart failure chronicity: acute Qualified Code(s): I50.9 - Heart failure, unspecified (2) SOB (shortness of breath) Code(s): R06.02 - SHORTNESS OF BREATH (3) MURALI (acute kidney injury) Code(s): N17.9 - ACUTE KIDNEY FAILURE, UNSPECIFIED (4) Acute exacerbation of chronic obstructive pulmonary disease (COPD) Code(s): J44.1 - CHRONIC OBSTRUCTIVE PULMONARY DISEASE W (ACUTE) EXACERBATION (5) Arrhythmia Code(s): I49.9 - CARDIAC ARRHYTHMIA, UNSPECIFIED (6) Atrial fibrillation Code(s): I48.91 - UNSPECIFIED ATRIAL FIBRILLATION Qualifiers: Atrial fibrillation type: chronic (7) CAD S/P percutaneous coronary angioplasty Code(s): I25.10 - ATHSCL HEART DISEASE OF [place] CORONARY ARTERY W/O ANG PCTRS; Z98.61 - CORONARY ANGIOPLASTY STATUS (8) CHF exacerbation Code(s): I50.9 - HEART FAILURE, UNSPECIFIED Qualifiers: Heart failure type: unspecified Qualified Code(s): I50.9 - Heart failure, unspecified (9) Diabetes mellitus type 2, uncontrolled Code(s): E11.65 - TYPE 2 DIABETES MELLITUS WITH HYPERGLYCEMIA (10) Dyslipidemia Code(s): E78.5 - HYPERLIPIDEMIA, UNSPECIFIED (11) Mitral valve regurgitation Code(s): I34.0 - NONRHEUMATIC MITRAL (VALVE) INSUFFICIENCY Qualifiers: Cardiac valve disease etiology: etiology unspecified Qualified Code(s): I34.0 - Nonrheumatic mitral (valve) insufficiency (12) Pneumonia Code(s): J18.9 - PNEUMONIA, UNSPECIFIED ORGANISM Assessment/Plan DECREASE LASIX AND CHANGE TO 60MG PO DAILY TAPER OFF STEROIDS LAXATIVES AND MIRALAX RECTAL ENEMA X 1 OOB TO CHAIR PT EVAL O2 SUPPORT SNF TO [facility]
[2019-04-25] MEDS ORDERED: SODIUM PHOSPHATE/NA BIPHOS 133 ML ENEMA PR ONE (16:33)
[2019-04-25] MEDS ORDERED: DOCUSATE SODIUM 100 MG CAPSULE (FP) PO ONE (16:45)
[2019-04-25] MEDS: diazePAM 2 MG TABLET PO PRN (17:29)
[2019-04-25] MEDS ORDERED: methylPREDNISolone NA SUCC 40 MG/1 ML VIAL IVPUSH SCH (22:00)
[2019-04-25] MEDS ORDERED: PT OWN MED DRAWER 7, Y5N ONE (23:14)
[2019-04-26] MEDS: INSULIN (LEVEMIR) 100 UNITS/ML UNITS SQ SCH (06:47)
[2019-04-26] MEDS: INSULIN SLIDING SCALE (NOVOLOG) 1 VIAL SQ SCH ×4 (06:48→23:16)
[2019-04-26] MEDS: ALBUTEROL SO4 2.5/IPRATROPIUM 0.5 INH SOL 3 ML VIAL.NEB. NEB SCH ×4 (07:30→20:37)
[2019-04-26 08:11] LABS: HEMATOCRIT 31.3 % (32.4-45.2); HEMOGLOBIN 10.4 GM/dL (10.7-15.3); MCH 29.7 pg (25.7-33.7); MCHC 33.4 g/dl (32.0-36.0); MEAN PLT VOLUME 10.6 fl (7.5-11.1); PLATELET COUNT 238 K/MM3 (134-434); RBC 3.51 M/mm3 (3.60-5.2); RDW 17.7 % (11.6-15.6); WHITE BLOOD COUNT 7.3 K/mm3 (4.0-10.0)
[2019-04-26 08:56] LABS: ALBUMIN 3.3 g/dl (3.4-5.0); BILIRUBIN,TOTAL 0.7 mg/dL (0.2-1); BLOOD UREA NITROGEN 97.8 mg/dL (7-18); CALCIUM 8.9 mg/dL (8.5-10.1); CREATININE 2.3 mg/dL (0.55-1.3); MAGNESIUM 3.6 mg/dL (1.8-2.4); POTASSIUM 4.6 mmol/L (3.5-5.1); TOT PROT 6.4 g/dl (6.4-8.2)
--- NOTE | 2019-04-26 10:41 | PN ---
Progress Note, Physician History of Present Illness: pulmonary alert,breathing better,less cough - Current Medication List Current Medications: Active Medications Acetaminophen (Tylenol -) 650 mg PO Q6H PRN PRN Reason: PAIN LEVEL 1-5 Albuterol Sulfate (Ventolin 0.042trength) -) 1 amp NEB Q4H PRN PRN Reason: SHORT OF BREATH/WHEEZING Albuterol/Ipratropium (Duoneb -) 1 amp NEB RQID [facility] Last Admin: 04/26/19 07:30 Dose: 1 amp Aspirin (Asa -) 81 mg PO DAILY [facility] Last Admin: 04/25/19 09:37 Dose: 81 mg Dabigatran (Pradaxa -) 75 mg PO BID [facility] Last Admin: 04/25/19 23:17 Dose: 75 mg Diazepam (Valium -) 2 mg PO Q12H PRN PRN Reason: ANXIETY Last Admin: 04/25/19 17:29 Dose: 2 mg Diltiazem HCl (Cardizem Cd -) 120 mg PO DAILY [facility] Last Admin: 04/25/19 09:36 Dose: 120 mg Docusate Sodium (Colace -) 100 mg PO BID PRN PRN Reason: CONSTIPATION Last Admin: 04/25/19 09:36 Dose: 100 mg Furosemide (Lasix -) 60 mg PO DAILY [facility] Last Admin: 04/25/19 09:37 Dose: 60 mg Glycerin (Glycerin Suppository Adult -) 1 each [place] DAILY PRN PRN Reason: CONSTIPATION Last Admin: 04/23/19 22:05 Dose: 1 each Insulin Aspart (Novolog Vial Sliding Scale -) 1 vial SQ ACHS [facility]; Protocol Last Admin: 04/26/19 06:48 Dose: 2 units Insulin Detemir (Levemir Vial) 10 units SQ AM [facility] Last Admin: 04/26/19 06:47 Dose: 10 units Methylprednisolone Sodium Succinate (Solu-Medrol -) 40 mg IVPUSH BID [facility] Last Admin: 04/25/19 23:20 Dose: 40 mg Pantoprazole Sodium (Protonix -) 40 mg PO DAILY [facility] Last Admin: 04/25/19 09:36 Dose: 40 mg Rosuvastatin Calcium (Crestor -) 20 mg PO HS [facility] - Objective Vital Signs: Vital Signs Temperature 97 F L 04/26/19 01:00 Pulse Rate 70 02/26/20 05:00 Respiratory Rate 22 H 0226/20 05:00 Blood Pressure 145/73 04/26/19 05:00 O2 Sat by Pulse Oximetry (%) 94 L 04/26/19 08:04 Constitutional: Yes: Calm, Thin Eyes: Yes: WNL HENT: Yes: WNL Neck: Yes: WNL Cardiovascular: Yes: Pulse Irregular, S1, S2 Respiratory: Yes: Rales (bibasilar rales) Gastrointestinal: Yes: Normal Bowel Sounds, Soft Extremities: Yes: WNL Edema: No Labs: CBC, BMP 04/26/19 05:33 04/26/19 05:33 INR, PTT INR 1.40 (0.83-1.09) H 04/21/19 13:40 Problem List - Problems (1) Acute on chronic respiratory failure with hypoxia and hypercapnia Code(s): J96.21 - ACUTE AND CHRONIC RESPIRATORY FAILURE WITH HYPOXIA; J96.22 - ACUTE AND CHRONIC RESPIRATORY FAILURE WITH HYPERCAPNIA (2) SOB (shortness of breath) Code(s): R06.02 - SHORTNESS OF BREATH (3) MURALI (acute kidney injury) Code(s): N17.9 - ACUTE KIDNEY FAILURE, UNSPECIFIED (4) Atrial fibrillation Code(s): I48.91 - UNSPECIFIED ATRIAL FIBRILLATION Qualifiers: Atrial fibrillation type: chronic (5) CAD S/P percutaneous coronary angioplasty Code(s): I25.10 - ATHSCL HEART DISEASE OF [place] CORONARY ARTERY W/O ANG PCTRS; Z98.61 - CORONARY ANGIOPLASTY STATUS (6) CHF exacerbation Code(s): I50.9 - HEART FAILURE, UNSPECIFIED Qualifiers: Heart failure type: unspecified Qualified Code(s): I50.9 - Heart failure, unspecified (7) Diabetes Code(s): E11.9 - TYPE 2 DIABETES MELLITUS WITHOUT COMPLICATIONS Qualifiers: Diabetes mellitus type: other specified (including YULISA) Diabetes mellitus moth exterminator insulin use: with moth exterminator use Diabetes mellitus complication status: with unspecified complications (8) Dyslipidemia Code(s): E78.5 - HYPERLIPIDEMIA, UNSPECIFIED (9) Mitral valve regurgitation Code(s): I34.0 - NONRHEUMATIC MITRAL (VALVE) INSUFFICIENCY Qualifiers: Cardiac valve disease etiology: etiology unspecified Qualified Code(s): I34.0 - Nonrheumatic mitral (valve) insufficiency (10) Troponin I above reference range Code(s): R79.89 - OTHER SPECIFIED ABNORMAL FINDINGS OF BLOOD CHEMISTRY (11) Aortic stenosis Code(s): I35.0 - NONRHEUMATIC AORTIC (VALVE) STENOSIS Assessment/Plan IMP ACUTE ON CHRONIC HYPOXEMIC/HYPERCAPNEIC RESPIRATORY FAILURE IMPROVING COPD EXACERBATION IMPROVING CHF AFIB ASHD S/P STENT SEVERE PULMONARY HTN 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 WORSENING PLAN TAPER MEDROL INHALED BRONCHODILATORS SUPPLEMENTAL O2 LASIX MONITOR LYTES,BUN,CREATININE DR LORA Problem List - Problems (1) Acute on chronic respiratory failure with hypoxia and hypercapnia Code(s): J96.21 - ACUTE AND CHRONIC RESPIRATORY FAILURE WITH HYPOXIA; J96.22 - ACUTE AND CHRONIC RESPIRATORY FAILURE WITH HYPERCAPNIA (2) SOB (shortness of breath) Code(s): R06.02 - SHORTNESS OF BREATH (3) MURALI (acute kidney injury) Code(s): N17.9 - ACUTE KIDNEY FAILURE, UNSPECIFIED (4) Atrial fibrillation Code(s): I48.91 - UNSPECIFIED ATRIAL FIBRILLATION Qualifiers: Atrial fibrillation type: chronic (5) CAD S/P percutaneous coronary angioplasty Code(s): I25.10 - ATHSCL HEART DISEASE OF [place] CORONARY ARTERY W/O ANG PCTRS; Z98.61 - CORONARY ANGIOPLASTY STATUS (6) CHF exacerbation Code(s): I50.9 - HEART FAILURE, UNSPECIFIED Qualifiers: Heart failure type: unspecified Qualified Code(s): I50.9 - Heart failure, unspecified (7) Diabetes Code(s): E11.9 - TYPE 2 DIABETES MELLITUS WITHOUT COMPLICATIONS Qualifiers: Diabetes mellitus type: other specified (including YULISA) Diabetes mellitus moth exterminator insulin use: with moth exterminator use Diabetes mellitus complication status: with unspecified complications (8) Dyslipidemia Code(s): E78.5 - HYPERLIPIDEMIA, UNSPECIFIED (9) Mitral valve regurgitation Code(s): I34.0 - NONRHEUMATIC MITRAL (VALVE) INSUFFICIENCY Qualifiers: Cardiac valve disease etiology: etiology unspecified Qualified Code(s): I34.0 - Nonrheumatic mitral (valve) insufficiency (10) Troponin I above reference range Code(s): R79.89 - OTHER SPECIFIED ABNORMAL FINDINGS OF BLOOD CHEMISTRY (11) Aortic stenosis Code(s): I35.0 - NONRHEUMATIC AORTIC (VALVE) STENOSIS
--- NOTE | 2019-04-26 10:50 | PN ---
Progress Note, Physician Chief Complaint: ASLEEP COMFORTABLE ON 02 NC NO CHEST PAIN +SOB + BLEED TO ARM FROM SKIN BREAK ON AC - Current Medication List Current Medications: Active Medications Acetaminophen (Tylenol -) 650 mg PO Q6H PRN PRN Reason: PAIN LEVEL 1-5 Albuterol Sulfate (Ventolin 0.042trength) -) 1 amp NEB Q4H PRN PRN Reason: SHORT OF BREATH/WHEEZING Albuterol/Ipratropium (Duoneb -) 1 amp NEB RQID [facility] Last Admin: 04/26/19 07:30 Dose: 1 amp Aspirin (Asa -) 81 mg PO DAILY [facility] Last Admin: 04/25/19 09:37 Dose: 81 mg Dabigatran (Pradaxa -) 75 mg PO BID [facility] Last Admin: 04/25/19 23:17 Dose: 75 mg Diazepam (Valium -) 2 mg PO Q12H PRN PRN Reason: ANXIETY Last Admin: 04/25/19 17:29 Dose: 2 mg Diltiazem HCl (Cardizem Cd -) 120 mg PO DAILY [facility] Last Admin: 04/25/19 09:36 Dose: 120 mg Docusate Sodium (Colace -) 100 mg PO BID PRN PRN Reason: CONSTIPATION Last Admin: 04/25/19 09:36 Dose: 100 mg Furosemide (Lasix -) 60 mg PO DAILY [facility] Last Admin: 04/25/19 09:37 Dose: 60 mg Glycerin (Glycerin Suppository Adult -) 1 each [place] DAILY PRN PRN Reason: CONSTIPATION Last Admin: 04/23/19 22:05 Dose: 1 each Insulin Aspart (Novolog Vial Sliding Scale -) 1 vial SQ ACHS [facility]; Protocol Last Admin: 04/26/19 06:48 Dose: 2 units Insulin Detemir (Levemir Vial) 10 units SQ AM [facility] Last Admin: 04/26/19 06:47 Dose: 10 units Methylprednisolone Sodium Succinate (Solu-Medrol -) 20 mg IVPUSH BID [facility] Pantoprazole Sodium (Protonix -) 40 mg PO DAILY [facility] Last Admin: 04/25/19 09:36 Dose: 40 mg Rosuvastatin Calcium (Crestor -) 20 mg PO HS [facility] - Objective Vital Signs: Vital Signs Temperature 97 F L 04/26/19 01:00 Pulse Rate 70 04/26/19 05:00 Respiratory Rate 22 H 04/26/19 05:00 Blood Pressure 145/73 04/26/19 05:00 O2 Sat by Pulse Oximetry (%) 94 L 04/26/19 08:04 Constitutional: Yes: Mild Distress Cardiovascular: Yes: Pulse Irregular Respiratory: Yes: Diminished, On Nasal O2 Genitourinary: Yes: Incontinence Musculoskeletal: Yes: Muscle Weakness Edema: No Peripheral Pulses WNL: Yes Integumentary: Yes: Bruising Wound/Incision: Yes: Dressing Dry and Intact, Bleeding (ARM SKIN BREAK) Neurological: Yes: Pre-Existing Deficit ...Motor Strength: LLE, RLE Psychiatric: Yes: Other Labs: CBC, BMP 04/26/19 05:33 04/26/19 05:33 INR, PTT INR 1.40 (0.83-1.09) H 04/21/19 13:40 Problem List - Problems (1) CHF (congestive heart failure) Code(s): I50.9 - HEART FAILURE, UNSPECIFIED Qualifiers: Heart failure type: unspecified Heart failure chronicity: acute Qualified Code(s): I50.9 - Heart failure, unspecified (2) SOB (shortness of breath) Code(s): R06.02 - SHORTNESS OF BREATH (3) MURALI (acute kidney injury) Code(s): N17.9 - ACUTE KIDNEY FAILURE, UNSPECIFIED (4) Acute exacerbation of chronic obstructive pulmonary disease (COPD) Code(s): J44.1 - CHRONIC OBSTRUCTIVE PULMONARY DISEASE W (ACUTE) EXACERBATION (5) Arrhythmia Code(s): I49.9 - CARDIAC ARRHYTHMIA, UNSPECIFIED (6) Atrial fibrillation Code(s): I48.91 - UNSPECIFIED ATRIAL FIBRILLATION Qualifiers: Atrial fibrillation type: chronic (7) CAD S/P percutaneous coronary angioplasty Code(s): I25.10 - ATHSCL HEART DISEASE OF [place] CORONARY ARTERY W/O ANG PCTRS; Z98.61 - CORONARY ANGIOPLASTY STATUS (8) CHF exacerbation Code(s): I50.9 - HEART FAILURE, UNSPECIFIED Qualifiers: Heart failure type: unspecified Qualified Code(s): I50.9 - Heart failure, unspecified (9) Diabetes mellitus type 2, uncontrolled Code(s): E11.65 - TYPE 2 DIABETES MELLITUS WITH HYPERGLYCEMIA (10) Dyslipidemia Code(s): E78.5 - HYPERLIPIDEMIA, UNSPECIFIED (11) Mitral valve regurgitation Code(s): I34.0 - NONRHEUMATIC MITRAL (VALVE) INSUFFICIENCY Qualifiers: Cardiac valve disease etiology: etiology unspecified Qualified Code(s): I34.0 - Nonrheumatic mitral (valve) insufficiency (12) Pneumonia Code(s): J18.9 - PNEUMONIA, UNSPECIFIED ORGANISM Assessment/Plan DECREASE LASIX AND CHANGE TO 60MG PO DAILY TAPER OFF STEROIDS DYSPNEA YESTERDAY TODAY ON NC 2L CXR SHOWS IMPROVED LUNG FIELD LAXATIVES AND MIRALAX RECTAL ENEMA X 1 YESTERDAY OOB TO CHAIR PT EVAL O2 SUPPORT WOUND CARE TO [facility] TO [facility] WHEN READY
--- NOTE | 2019-04-26 10:54 | PN ---
Progress Note (short form) - Note Progress Note: ADDENDUM: CREATININE INCREASED 2.3 ORDERED RENAL SONO R/O HYDRONEPHROSIS STOP ALL FLEET ENEMAS DECREASE LASIX Problem List - Problems (1) CHF (congestive heart failure) Code(s): I50.9 - HEART FAILURE, UNSPECIFIED Qualifiers: Heart failure type: unspecified Heart failure chronicity: acute Qualified Code(s): I50.9 - Heart failure, unspecified (2) SOB (shortness of breath) Code(s): R06.02 - SHORTNESS OF BREATH (3) MURALI (acute kidney injury) Code(s): N17.9 - ACUTE KIDNEY FAILURE, UNSPECIFIED (4) Acute exacerbation of chronic obstructive pulmonary disease (COPD) Code(s): J44.1 - CHRONIC OBSTRUCTIVE PULMONARY DISEASE W (ACUTE) EXACERBATION (5) Arrhythmia Code(s): I49.9 - CARDIAC ARRHYTHMIA, UNSPECIFIED (6) Atrial fibrillation Code(s): I48.91 - UNSPECIFIED ATRIAL FIBRILLATION Qualifiers: Atrial fibrillation type: chronic (7) CAD S/P percutaneous coronary angioplasty Code(s): I25.10 - ATHSCL HEART DISEASE OF [place] CORONARY ARTERY W/O ANG PCTRS; Z98.61 - CORONARY ANGIOPLASTY STATUS (8) CHF exacerbation Code(s): I50.9 - HEART FAILURE, UNSPECIFIED Qualifiers: Heart failure type: unspecified Qualified Code(s): I50.9 - Heart failure, unspecified (9) Diabetes mellitus type 2, uncontrolled Code(s): E11.65 - TYPE 2 DIABETES MELLITUS WITH HYPERGLYCEMIA (10) Dyslipidemia Code(s): E78.5 - HYPERLIPIDEMIA, UNSPECIFIED (11) Mitral valve regurgitation Code(s): I34.0 - NONRHEUMATIC MITRAL (VALVE) INSUFFICIENCY Qualifiers: Cardiac valve disease etiology: etiology unspecified Qualified Code(s): I34.0 - Nonrheumatic mitral (valve) insufficiency (12) Pneumonia Code(s): J18.9 - PNEUMONIA, UNSPECIFIED ORGANISM
[2019-04-26] MEDS: FUROSEMIDE 20 MG TABLET (FP) PO SCH (11:16)
[2019-04-26] MEDS: ASPIRIN 81 MG CHEWABLE TABLETS PO SCH (11:16)
[2019-04-26] MEDS: PANTOPRAZOLE 40 MG TABLET PO SCH (11:17)
[2019-04-26] MEDS ORDERED: PT OWN MED DRAWER 7, Y5N ONE ×2 (11:18→23:07)
[2019-04-26] MEDS: DABIGATRAN ETEXILATE MESYLATE 75 MG CAPSULE PO SCH ×2 (11:20→23:16)
[2019-04-26] MEDS: methylPREDNISolone NA SUCC 40 MG/1 ML VIAL IVPUSH SCH ×2 (11:21→23:19)
--- NOTE | 2019-04-26 11:45 | PN ---
Progress Note, Physician History of Present Illness: pt seen and examined today in nad. no overnight events. no new complaints. - Current Medication List Current Medications: Active Medications Acetaminophen (Tylenol -) 650 mg PO Q6H PRN PRN Reason: PAIN LEVEL 1-5 Albuterol Sulfate (Ventolin 0.042trength) -) 1 amp NEB Q4H PRN PRN Reason: SHORT OF BREATH/WHEEZING Albuterol/Ipratropium (Duoneb -) 1 amp NEB RQID [facility] Last Admin: 04/26/19 07:30 Dose: 1 amp Aspirin (Asa -) 81 mg PO DAILY [facility] Last Admin: 04/26/19 11:16 Dose: 81 mg Dabigatran (Pradaxa -) 75 mg PO BID [facility] Last Admin: 04/26/19 11:20 Dose: 75 mg Diazepam (Valium -) 2 mg PO Q12H PRN PRN Reason: ANXIETY Last Admin: 04/25/19 17:29 Dose: 2 mg Diltiazem HCl (Cardizem Cd -) 120 mg PO DAILY [facility] Last Admin: 04/26/19 11:16 Dose: 120 mg Docusate Sodium (Colace -) 100 mg PO BID PRN PRN Reason: CONSTIPATION Last Admin: 04/25/19 09:36 Dose: 100 mg Furosemide (Lasix -) 60 mg PO DAILY [facility] Last Admin: 04/26/19 11:16 Dose: 60 mg Glycerin (Glycerin Suppository Adult -) 1 each [place] DAILY PRN PRN Reason: CONSTIPATION Last Admin: 04/23/19 22:05 Dose: 1 each Insulin Aspart (Novolog Vial Sliding Scale -) 1 vial SQ ACHS [facility]; Protocol Last Admin: 04/26/19 06:48 Dose: 2 units Insulin Detemir (Levemir Vial) 10 units SQ AM [facility] Last Admin: 04/26/19 06:47 Dose: 10 units Methylprednisolone Sodium Succinate (Solu-Medrol -) 20 mg IVPUSH BID [facility] Last Admin: 04/26/19 11:21 Dose: 20 mg Pantoprazole Sodium (Protonix -) 40 mg PO DAILY [facility] Last Admin: 04/26/19 11:17 Dose: 40 mg Rosuvastatin Calcium (Crestor -) 20 mg PO HS [facility] - Objective Vital Signs: Vital Signs Temperature 97.9 F 04/26/19 09:00 Pulse Rate 75 04/26/19 09:00 Respiratory Rate 20 04/26/19 09:00 Blood Pressure 160/60 04/26/19 09:00 O2 Sat by Pulse Oximetry (%) 94 L 04/26/19 08:04 Constitutional: Yes: No Distress, Calm Eyes: Yes: Conjunctiva Clear, EOM Intact HENT: Yes: Atraumatic, Normocephalic Neck: Yes: Supple, Trachea Midline Cardiovascular: Yes: Pulse Irregular, S1, S2. No: Regular Rate and Rhythm, Bradycardia, Tachycardia, Bruit, JVD, Gallop, Murmur, Rub, S3, S4, Varicosities Respiratory: Yes: Regular, Diminished, On Venti-Mask, Rhonchi, Wheezes. No: Rales, SOB Gastrointestinal: Yes: Normal Bowel Sounds, Soft Extremities: Yes: WNL Edema: No Neurological: Yes: Alert, Oriented Psychiatric: Yes: Alert, Oriented Labs: CBC, BMP 04/26/19 05:33 04/26/19 05:33 INR, PTT INR 1.40 (0.83-1.09) H 04/21/19 13:40 - ....Imaging Chest X-ray: Report Reviewed, Image Reviewed EKG: Report Reviewed, Image Reviewed Other: Report Reviewed, Image Reviewed (tele-nsr, pvcs, couplets triplets, no sig runs nsvt) Assessment/Plan She is an 84F COPD, ILD, with acute exacerbation CAD sp previous stents and last cath in 2017 showed patent vessels, recent stress test showed fixed defects and no ischemia. ho syncope and NSVT and post ILR placement. Severe pulm HTN HFpEF Chronic TP elevation 1. CAD Stable Has chronic TP elevation unchanged from prior. No myocardial ischemia. 2. CHF Acute diastolic CHF, ho mitral regurgitation and mild-moderate Aortic stenosis. volume status improving, near euvolemic agree with transition to po Lasix 60mg daily Monitor weight and strict I/Os monitor blood work bun/creat, electrolytes and replete as needed 3. Afib Continue with diltiazem. Continue pradaxa 4. NSVT No further long runs of nsvt pvcs, couplets, triplets with ichemic heart disease. Not on BB due to severity of lung disease. Monitor electrolytes daily. keep K>4, Mg >2 ok to dc tele
--- NOTE | 2019-04-26 15:54 | CONSULT ---
Consult - text type - Consultation Consultation Note: Renal consult for MURALI This is a 84 year old woman with history of COPD, CHF, CAD, hypertension, MVR, DM and atrial fibrillation who presented with shortness of breath and and admitted for CHF exacerbation with MURALI. Pt is awake and alert. Reports continued shortness of breath but is improved. She denies any GE, confusion, chest pain, fever, chills, Abdominal pain, N/V/D, skin rash, flank pain, dysuria or frequency. Denies any history of CKD. No NSAID use. No recent contrast exposure. She was on IV lasix, now transistioned to oral Lasix. PMhx: as above Allergies: NKDA Family Hx: NC Social Hx: No T/A/D ROS: as per HPI, all other pertinent ros negative. Home Medications Medication Instructions Recorded Rosuvastatin [Crestor -] 20 mg PO DAILY 11/15/16 Aspirin [ASA -] 81 mg PO DAILY #30 tab.chew 11/19/16 Cholecalciferol (Vitamin D3) 50,000 unit PO WEEKLY 06/22/17 [Optimal D3] Dabigatran Etexilate Mesylate 75 mg PO BID 06/22/17 [Pradaxa -] Sitagliptin Phosphate [Januvia -] 50 mg PO DAILY@0700 06/22/17 Diltiazem Cd [Cardizem Cd -] 120 mg PO DAILY cap.cd.24h 07/07/17 Digoxin [Lanoxin -] 0.125 mg PO HS 02/08/19 Furosemide [Lasix -] 60 mg PO DAILY 02/08/19 Glyburide 5 mg PO DAILY 02/08/19 Linaclotide [Linzess] 72 mcg PO DAILY 02/08/19 Losartan Potassium 50 mg PO DAILY 04/22/19 Vital Signs Temperature 97.9 F 04/26/19 09:00 Pulse Rate 75 04/26/19 09:00 Respiratory Rate 20 04/26/19 09:00 Blood Pressure 160/60 04/26/19 09:00 O2 Sat by Pulse Oximetry (%) 96 04/26/19 12:03 NAD awake and alert neck supple, no JVD RRR + murmur Dec BS, + fine rales soft NT/ND, no rebound or guarding no LE edema, clubbing or cyanosis no focal neurologic deficits CBC, BMP 04/26/19 05:33 04/26/19 05:33 Current Medications Acetaminophen (Tylenol -) 650 mg PO Q6H PRN PRN Reason: PAIN LEVEL 1-5 Albuterol Sulfate (Ventolin 0.042trength) -) 1 amp NEB Q4H PRN PRN Reason: SHORT OF BREATH/WHEEZING Albuterol/Ipratropium (Duoneb -) 1 amp NEB RQID [facility] Last Admin: 04/26/19 12:05 Dose: 1 amp Aspirin (Asa -) 81 mg PO DAILY [facility] Last Admin: 04/26/19 11:16 Dose: 81 mg Dabigatran (Pradaxa -) 75 mg PO BID [facility] Last Admin: 04/26/19 11:20 Dose: 75 mg Diazepam (Valium -) 2 mg PO Q12H PRN PRN Reason: ANXIETY Last Admin: 04/25/19 17:29 Dose: 2 mg Diltiazem HCl (Cardizem Cd -) 120 mg PO DAILY [facility] Last Admin: 04/26/19 11:16 Dose: 120 mg Docusate Sodium (Colace -) 100 mg PO BID PRN PRN Reason: CONSTIPATION Last Admin: 04/25/19 09:36 Dose: 100 mg Furosemide (Lasix -) 60 mg PO DAILY [facility] Last Admin: 04/26/19 11:16 Dose: 60 mg Glycerin (Glycerin Suppository Adult -) 1 each [place] DAILY PRN PRN Reason: CONSTIPATION Last Admin: 04/23/19 22:05 Dose: 1 each Insulin Aspart (Novolog Vial Sliding Scale -) 1 vial SQ ACHS [facility]; Protocol Last Admin: 04/26/19 12:22 Dose: 5 units Insulin Detemir (Levemir Vial) 10 units SQ AM [facility] Last Admin: 04/26/19 06:47 Dose: 10 units Methylprednisolone Sodium Succinate (Solu-Medrol -) 20 mg IVPUSH BID [facility] Last Admin: 04/26/19 11:21 Dose: 20 mg Pantoprazole Sodium (Protonix -) 40 mg PO DAILY [facility] Last Admin: 04/26/19 11:17 Dose: 40 mg Rosuvastatin Calcium (Crestor -) 20 mg PO HS [facility] 84 year old woman with history of COPD, CHF, CAD, hypertension, MVR, DM and atrial fibrillation who presented with shortness of breath and and admitted for CHF exacerbation with MURALI. 1. Acute kidney injury in setting of CHF 2. CHF exacerbation 3. CAD 4. COPD 5. DM differential for MURALI: intravascular volume depletion vs. hemodynamic injury in setting of ARB and diuretics vs. AIN vs. urinary retention no overt electrolyte or acid/base disturbance at this time to warrant dialysis Urine studies show FeUrea of 42% indicative of some tubular injury UPCR is 0.5, subnephrotic range Check Bladder US to r/o retention Agree with reduced dose of Lasix Would hold MANDY/ARB for now Trend renal function and electrolyte daily Check CK levels Trend Phos and Mg Urine eosinophils pending Check serum eosinophils Thank you Luis Orlando DO
[2019-04-26 17:05] LABS: EPI CELLS 5.1 /HPF (0-5/HPF); HYALINE CASTS 6 /lpf (0-8); URINE APPEARANCE CLEAR; URINE BACTERIA 2.2 /hpf (NEGATIVE); URINE BILIRUBIN NEGATIVE (NEGATIVE); URINE COLOR YELLOW; URINE GLUCOSE (UA) NEGATIVE (NEGATIVE); URINE KETONE NEGATIVE (NEGATIVE); URINE LEUK ESTERASE 1+ (NEGATIVE); URINE NITRITE NEGATIVE (NEGATIVE); URINE PROTEIN TRACE (NEGATIVE); URINE RBC 4 /hpf (0-4); URINE UROBILINOGEN 0.2 mg/dL (0.2-1.0); URINE WBC 17 /hpf (0-5)
[2019-04-26] MEDS: DOCUSATE SODIUM 100 MG CAPSULE (FP) PO PRN (23:16)
[2019-04-26] MEDS: ROSUVASTATIN CA 20 MG TABLET (FP) PO SCH (23:16)
[2019-04-27] MEDS: ALBUTEROL SO4 0.042% IH SOL 1.25 MG/3 ML VIAL.NEB NEB PRN (00:43)
[2019-04-27] MEDS: INSULIN SLIDING SCALE (NOVOLOG) 1 VIAL SQ SCH ×3 (07:13→22:42)
[2019-04-27] MEDS: INSULIN (LEVEMIR) 100 UNITS/ML UNITS SQ SCH (07:14)
[2019-04-27] MEDS: ALBUTEROL SO4 2.5/IPRATROPIUM 0.5 INH SOL 3 ML VIAL.NEB. NEB SCH ×4 (08:00→20:00)
--- NOTE | 2019-04-27 09:42 | PN ---
Progress Note, Physician Chief Complaint: Afib SOB COPD Exacerbation History of Present Illness: Previous notes and events reviewed awake and alert mild distress patient noted with SpO2 75% on NC, instructed RN to place patient on Bipap and SpO2 increase to 93% she states continuing tohave dyspnea denies chest pain or palpitations - Current Medication List Current Medications: Active Medications Acetaminophen (Tylenol -) 650 mg PO Q6H PRN PRN Reason: PAIN LEVEL 1-5 Albuterol Sulfate (Ventolin 0.042trength) -) 1 amp NEB Q4H PRN PRN Reason: SHORT OF BREATH/WHEEZING Last Admin: 04/27/19 00:43 Dose: 1 amp Albuterol/Ipratropium (Duoneb -) 1 amp NEB RQID [facility] Last Admin: 04/27/19 08:00 Dose: 1 amp Aspirin (Asa -) 81 mg PO DAILY [facility] Last Admin: 04/26/19 11:16 Dose: 81 mg Dabigatran (Pradaxa -) 75 mg PO BID [facility] Last Admin: 04/26/19 23:16 Dose: 75 mg Diazepam (Valium -) 2 mg PO Q12H PRN PRN Reason: ANXIETY Last Admin: 04/25/19 17:29 Dose: 2 mg Diltiazem HCl (Cardizem Cd -) 120 mg PO DAILY [facility] Last Admin: 04/26/19 11:16 Dose: 120 mg Docusate Sodium (Colace -) 100 mg PO BID PRN PRN Reason: CONSTIPATION Last Admin: 04/26/19 23:16 Dose: 100 mg Furosemide (Lasix -) 60 mg PO DAILY [facility] Last Admin: 04/26/19 11:16 Dose: 60 mg Glycerin (Glycerin Suppository Adult -) 1 each [place] DAILY PRN PRN Reason: CONSTIPATION Last Admin: 04/23/19 22:05 Dose: 1 each Insulin Aspart (Novolog Vial Sliding Scale -) 1 vial SQ ACHS [facility]; Protocol Last Admin: 04/27/19 07:13 Dose: Not Given Insulin Detemir (Levemir Vial) 10 units SQ AM [facility] Last Admin: 04/27/19 07:14 Dose: 10 units Methylprednisolone Sodium Succinate (Solu-Medrol -) 20 mg IVPUSH BID [facility] Last Admin: 04/26/19 23:19 Dose: 20 mg Pantoprazole Sodium (Protonix -) 40 mg PO DAILY [facility] Last Admin: 04/26/19 11:17 Dose: 40 mg Rosuvastatin Calcium (Crestor -) 20 mg PO [facility] Last Admin: 04/26/19 23:16 Dose: 20 mg - Objective Vital Signs: Vital Signs Temperature 97.2 F L 04/27/19 01:00 Pulse Rate 75 04/27/19 01:00 Respiratory Rate 24 H 04/27/19 01:00 Blood Pressure 155/54 L 04/27/19 05:00 O2 Sat by Pulse Oximetry (%) 91 L 04/26/19 22:00 Constitutional: Yes: No Distress, Calm Eyes: Yes: Conjunctiva Clear HENT: Yes: Atraumatic Cardiovascular: Yes: Pulse Irregular Respiratory: Yes: Regular, On BiPap, Rhonchi (at bases), Tachypnea Gastrointestinal: Yes: Normal Bowel Sounds, Soft Genitourinary: Yes: Incontinence Musculoskeletal: Yes: Muscle Weakness Extremities: Yes: WNL Edema: No Neurological: Yes: Alert, Oriented Psychiatric: Yes: Alert, Oriented Labs: CBC, BMP 04/26/19 05:33 04/26/19 05:33 INR, PTT INR 1.40 (0.83-1.09) H 04/21/19 13:40 Problem List - Problems (1) Acute on chronic respiratory failure with hypoxia and hypercapnia Assessment/Plan: Pulmonary on board Bipap HS and prn O2 via NC if tolerated keep Spo2 >90% bronchodilators IV Medrol CXR shows no acute pathology ABG STAT-APPLY PRESSURE AFTER DRAWN PATIENT IS ON BLOOD THINNER Code(s): J96.21 - ACUTE AND CHRONIC RESPIRATORY FAILURE WITH HYPOXIA; J96.22 - ACUTE AND CHRONIC RESPIRATORY FAILURE WITH HYPERCAPNIA (2) CHF (congestive heart failure) Assessment/Plan: Pulmonary and Cardiology on board Furosemide strict I&O low Na diet fluid restriction Code(s): I50.9 - HEART FAILURE, UNSPECIFIED Qualifiers: Heart failure type: unspecified Heart failure chronicity: acute Qualified Code(s): I50.9 - Heart failure, unspecified (3) SOB (shortness of breath) Assessment/Plan: Pulmonary on board Bipap HS and prn O2 via NC if tolerated keep Spo2 >90% bronchodilators IV Medrol CXR shows no acute pathology Code(s): R06.02 - SHORTNESS OF BREATH (4) Acute exacerbation of chronic obstructive pulmonary disease (COPD) Assessment/Plan: Pulmonary on board Bipap HS and prn O2 via NC if tolerated keep Spo2 >90% bronchodilators IV Medrol CXR shows no acute pathology Code(s): J44.1 - CHRONIC OBSTRUCTIVE PULMONARY DISEASE W (ACUTE) EXACERBATION (5) Atrial fibrillation Assessment/Plan: Pradaxa Cardizem for rate control Tele Monitoring Cardiology on board Code(s): I48.91 - UNSPECIFIED ATRIAL FIBRILLATION Qualifiers: Atrial fibrillation type: chronic (6) CKD (chronic kidney disease) Assessment/Plan: Renal on board BUN/Cr 97.8/2.3 monitor renal function daily being that patient is on Furosemide Code(s): N18.9 - CHRONIC KIDNEY DISEASE, UNSPECIFIED (7) Diabetes mellitus type 2, uncontrolled Assessment/Plan: [facility] Levemir diabetic diet Code(s): E11.65 - TYPE 2 DIABETES MELLITUS WITH HYPERGLYCEMIA (8) Dyslipidemia Assessment/Plan: Crestor Code(s): E78.5 - HYPERLIPIDEMIA, UNSPECIFIED (9) HTN (hypertension) Assessment/Plan: monitor BP Cardizem Code(s): I10 - ESSENTIAL (PRIMARY) HYPERTENSION Qualifiers: Hypertension type: essential hypertension Qualified Code(s): I10 - Essential (primary) hypertension Assessment/Plan see problem list
[2019-04-27] MEDS: methylPREDNISolone NA SUCC 40 MG/1 ML VIAL IVPUSH SCH ×2 (10:01→19:48)
[2019-04-27] MEDS: ASPIRIN 81 MG CHEWABLE TABLETS PO SCH (10:02)
[2019-04-27] MEDS: diazePAM 2 MG TABLET PO PRN ×2 (10:02→22:42)
[2019-04-27] MEDS: PANTOPRAZOLE 40 MG TABLET PO SCH (10:02)
[2019-04-27] MEDS: FUROSEMIDE 20 MG TABLET (FP) PO SCH (10:02)
[2019-04-27] MEDS: DOCUSATE SODIUM 100 MG CAPSULE (FP) PO PRN ×2 (10:03→22:42)
[2019-04-27] MEDS: DABIGATRAN ETEXILATE MESYLATE 75 MG CAPSULE PO SCH ×2 (10:42→22:42)
[2019-04-27 11:52] LABS: HEMATOCRIT 34.6 % (32.4-45.2); HEMOGLOBIN 11.1 GM/dL (10.7-15.3); MEAN CELL VOLUME 93.6 fl (80-96); MEAN PLT VOLUME 10.3 fl (7.5-11.1); PLATELET COUNT 270 K/MM3 (134-434); RBC 3.69 M/mm3 (3.60-5.2); RDW 17.8 % (11.6-15.6)
[2019-04-27 12:57] LABS: ALBUMIN 3.3 g/dl (3.4-5.0); BILIRUBIN,TOTAL 1.1 mg/dL (0.2-1); BLOOD UREA NITROGEN 83.8 mg/dL (7-18); CALCIUM 8.3 mg/dL (8.5-10.1); CREATININE 2.2 mg/dL (0.55-1.3); TOT PROT 6.6 g/dl (6.4-8.2)
[2019-04-27 13:11] LABS: ARTERIAL BLD GAS O2 SATURATION 92.2 % (95-98); ARTERIAL BLOOD GAS BASE EXCESS 9.5 meq/l (-2-2); ARTERIAL BLOOD GAS PCO2 43.8 mmHg (35-45); ARTERIAL BLOOD GAS PO2 66.8 mmHg (80-100)
--- NOTE | 2019-04-27 13:11 | PN ---
Progress Note (short form) - Note Progress Note: PULMONARY More short of breath today with some confusion. Vital Signs Period Temp Pulse Resp BP Sys/Lam Pulse Ox Last 24 Hr 97.2 F-97.4 F 72-84 20-24 137-155/54-74 91-94 Gen: tachypneic at rest Heart: irregular Lung: bilateral rhonchi Abd: soft, nontender Ext: no edema CBC, BMP 04/27/19 11:30 04/27/19 11:30 Active Medications Acetaminophen (Tylenol -) 650 mg PO Q6H PRN PRN Reason: PAIN LEVEL 1-5 Albuterol Sulfate (Ventolin 0.042trength) -) 1 amp NEB Q4H PRN PRN Reason: SHORT OF BREATH/WHEEZING Last Admin: 04/27/19 00:43 Dose: 1 amp Albuterol/Ipratropium (Duoneb -) 1 amp NEB RQID [facility] Last Admin: 04/27/19 08:00 Dose: 1 amp Aspirin (Asa -) 81 mg PO DAILY [facility] Last Admin: 04/27/19 10:02 Dose: 81 mg Dabigatran (Pradaxa -) 75 mg PO BID [facility] Last Admin: 04/27/19 10:42 Dose: 75 mg Diazepam (Valium -) 2 mg PO Q12H PRN PRN Reason: ANXIETY Last Admin: 04/27/19 10:02 Dose: 2 mg Diltiazem HCl (Cardizem Cd -) 120 mg PO DAILY [facility] Last Admin: 04/27/19 10:02 Dose: 120 mg Docusate Sodium (Colace -) 100 mg PO BID PRN PRN Reason: CONSTIPATION Last Admin: 04/27/19 10:03 Dose: 100 mg Furosemide (Lasix -) 60 mg PO DAILY [facility] Last Admin: 04/27/19 10:02 Dose: 60 mg Glycerin (Glycerin Suppository Adult -) 1 each [place] DAILY PRN PRN Reason: CONSTIPATION Last Admin: 04/23/19 22:05 Dose: 1 each Insulin Aspart (Novolog Vial Sliding Scale -) 1 vial SQ ACHS [facility]; Protocol Last Admin: 04/27/19 11:51 Dose: 14 units Insulin Detemir (Levemir Vial) 10 units SQ AM [facility] Last Admin: 04/27/19 07:14 Dose: 10 units Methylprednisolone Sodium Succinate (Solu-Medrol -) 20 mg IVPUSH BID [facility] Last Admin: 04/27/19 10:01 Dose: 20 mg Pantoprazole Sodium (Protonix -) 40 mg PO DAILY [facility] Last Admin: 04/27/19 10:02 Dose: 40 mg Rosuvastatin Calcium (Crestor -) 20 mg PO HS [facility] Last Admin: 04/26/19 23:16 Dose: 20 mg A/P Acute on Chronic Hypoxic and Hypercapneic Respiratory Failure Acute COPD Exacerbation LV Diastolic Dysfunction Pulmonary HTN Atrial Fibrillation CAD +Troponins likely Demand Ischemia Aortic Stenosis Hyperlipidemia DM - increase medrol to 40mg q8h - CXR, ABG pending - inhaled bronchodilators - O2 to keep Spo2 >90% - rate control - continue anticoagulation - continue lasix - monitor urine output, creatinine
[2019-04-27 13:20] LABS: ALLENS TEST POSITIVE
--- NOTE | 2019-04-27 13:45 | PN ---
Progress Note (short form) - Note Progress Note: Renal follow up for MURALI Seen and examined at the bedside awake and alert still has shortness of breath no orthopnea making urine tolerating meals and drinking liquids no chest pain, chest pressure no fever or chills denies any dysuria Vital Signs Temperature 97.2 F L 04/27/19 01:00 Pulse Rate 75 04/27/19 01:00 Respiratory Rate 24 H 04/27/19 01:00 Blood Pressure 155/54 L 04/27/19 05:00 O2 Sat by Pulse Oximetry (%) 91 L 04/26/19 22:00 Intake & Output 04/24/19 04/25/19 04/26/19 04/27/19 23:59 23:59 23:59 23:59 Intake Total 450 490 310 Balance 450 490 310 Weight 54.885 kg 54.794 kg 54.794 kg 54.068 kg NAD RRR Dec BS, + fine rales diffusely throughout the lung zamora soft NT/ND, no rebound or guarding no LE edema, clubbing or cyanosis no focal neurologic deficits CBC, BMP 04/27/19 11:30 04/27/19 11:30 Current Medications Acetaminophen (Tylenol -) 650 mg PO Q6H PRN PRN Reason: PAIN LEVEL 1-5 Albuterol Sulfate (Ventolin 0.042trength) -) 1 amp NEB Q4H PRN PRN Reason: SHORT OF BREATH/WHEEZING Last Admin: 04/27/19 00:43 Dose: 1 amp Albuterol/Ipratropium (Duoneb -) 1 amp NEB RQID [facility] Last Admin: 04/27/19 12:00 Dose: 1 amp Aspirin (Asa -) 81 mg PO DAILY [facility] Last Admin: 04/27/19 10:02 Dose: 81 mg Dabigatran (Pradaxa -) 75 mg PO BID [facility] Last Admin: 04/27/19 10:42 Dose: 75 mg Diazepam (Valium -) 2 mg PO Q12H PRN PRN Reason: ANXIETY Last Admin: 04/27/19 10:02 Dose: 2 mg Diltiazem HCl (Cardizem Cd -) 120 mg PO DAILY [facility] Last Admin: 04/27/19 10:02 Dose: 120 mg Docusate Sodium (Colace -) 100 mg PO BID PRN PRN Reason: CONSTIPATION Last Admin: 04/27/19 10:03 Dose: 100 mg Furosemide (Lasix -) 60 mg PO DAILY [facility] Last Admin: 04/27/19 10:02 Dose: 60 mg Glycerin (Glycerin Suppository Adult -) 1 each [place] DAILY PRN PRN Reason: CONSTIPATION Last Admin: 04/23/19 22:05 Dose: 1 each Insulin Aspart (Novolog Vial Sliding Scale -) 1 vial SQ ACHS [facility]; Protocol Last Admin: 04/27/19 11:51 Dose: 14 units Insulin Detemir (Levemir Vial) 10 units SQ AM [facility] Last Admin: 04/27/19 07:14 Dose: 10 units Methylprednisolone Sodium Succinate (Solu-Medrol -) 20 mg IVPUSH BID [facility] Last Admin: 04/27/19 10:01 Dose: 20 mg Pantoprazole Sodium (Protonix -) 40 mg PO DAILY [facility] Last Admin: 04/27/19 10:02 Dose: 40 mg Rosuvastatin Calcium (Crestor -) 20 mg PO HS [facility] Last Admin: 04/26/19 23:16 Dose: 20 mg 84 year old woman with history of COPD, CHF, CAD, hypertension, MVR, DM and atrial fibrillation who presented with shortness of breath and and admitted for CHF exacerbation with MURALI. 1. Acute kidney injury in setting of CHF 2. CHF exacerbation 3. CAD 4. COPD 5. DM Renal function stable but w/o improvement no evidence of obstruction on Renal US no overt electrolyte or acid/base disturbance at this time to warrant dialysis Urine studies show FeUrea of 42% indicative of some tubular injury UPCR is 0.5, subnephrotic range would recommend further reduction in lasix dose as patient is likely intravasculary volume depleted. will reduce lasix to 20mg daily Would hold MANDY/ARB for now Trend renal function and electrolytes daily Trend Phos and Mg Urine eosinophils pending BUN is disproportionately elevated due to steroids and not a reflection of uremia. Thank you Luis Orlando DO
--- NOTE | 2019-04-27 17:09 | PN ---
Progress Note, Physician History of Present Illness: pt seen and examined today. now on bipap. sob this am and hypoxic thus bipap started. feels slightly better currently. - Current Medication List Current Medications: Active Medications Acetaminophen (Tylenol -) 650 mg PO Q6H PRN PRN Reason: PAIN LEVEL 1-5 Albuterol Sulfate (Ventolin 0.042trength) -) 1 amp NEB Q4H PRN PRN Reason: SHORT OF BREATH/WHEEZING Last Admin: 04/27/19 00:43 Dose: 1 amp Albuterol/Ipratropium (Duoneb -) 1 amp NEB RQID [facility] Last Admin: 04/27/19 12:00 Dose: 1 amp Aspirin (Asa -) 81 mg PO DAILY [facility] Last Admin: 04/27/19 10:02 Dose: 81 mg Dabigatran (Pradaxa -) 75 mg PO BID [facility] Last Admin: 04/27/19 10:42 Dose: 75 mg Diazepam (Valium -) 2 mg PO Q12H PRN PRN Reason: ANXIETY Last Admin: 04/27/19 10:02 Dose: 2 mg Diltiazem HCl (Cardizem Cd -) 120 mg PO DAILY [facility] Last Admin: 04/27/19 10:02 Dose: 120 mg Docusate Sodium (Colace -) 100 mg PO BID PRN PRN Reason: CONSTIPATION Last Admin: 04/27/19 10:03 Dose: 100 mg Furosemide (Lasix -) 20 mg PO DAILY [facility] Glycerin (Glycerin Suppository Adult -) 1 each [place] DAILY PRN PRN Reason: CONSTIPATION Last Admin: 04/23/19 22:05 Dose: 1 each Insulin Aspart (Novolog Vial Sliding Scale -) 1 vial SQ ACHS [facility]; Protocol Last Admin: 04/27/19 11:51 Dose: 14 units Insulin Detemir (Levemir Vial) 10 units SQ AM [facility] Last Admin: 04/27/19 07:14 Dose: 10 units Methylprednisolone Sodium Succinate (Solu-Medrol -) 20 mg IVPUSH BID [facility] Last Admin: 04/27/19 10:01 Dose: 20 mg Pantoprazole Sodium (Protonix -) 40 mg PO DAILY [facility] Last Admin: 04/27/19 10:02 Dose: 40 mg Rosuvastatin Calcium (Crestor -) 20 mg PO HS [facility] Last Admin: 02/26/20 23:16 Dose: 20 mg - Objective Vital Signs: Vital Signs Temperature 97.7 F 04/27/19 14:00 Pulse Rate 74 04/27/19 14:00 Respiratory Rate 24 H 04/27/19 01:00 Blood Pressure 136/76 04/27/19 14:00 O2 Sat by Pulse Oximetry (%) 93 L 04/27/19 15:16 Constitutional: Yes: No Distress, Calm Eyes: Yes: Conjunctiva Clear, EOM Intact HENT: Yes: Atraumatic, Normocephalic Neck: Yes: Supple, Trachea Midline Cardiovascular: Yes: Pulse Irregular, S1, S2. No: Regular Rate and Rhythm, Bradycardia, Tachycardia, Bruit, JVD, Gallop, Murmur, Rub, S3, S4, Varicosities Respiratory: Yes: Regular, On BiPap, Rhonchi, Wheezes. No: Rales Gastrointestinal: Yes: Normal Bowel Sounds, Soft. No: Distention, Tenderness Extremities: Yes: WNL Edema: No Peripheral Pulses WNL: Yes Peripheral Pulses: Left Doralis Pedis: 2+, Right Dorsalis Pedis: 2+ Neurological: Yes: Alert, Oriented Psychiatric: Yes: Alert, Oriented Labs: CBC, BMP 04/27/19 11:30 04/27/19 11:30 INR, PTT INR 1.40 (0.83-1.09) H 04/21/19 13:40 - ....Imaging Chest X-ray: Report Reviewed, Image Reviewed EKG: Report Reviewed, Image Reviewed Other: Report Reviewed, Image Reviewed (tele-no further nsvt) Assessment/Plan She is an 84F COPD, ILD, with acute exacerbation CAD sp previous stents and last cath in 2017 showed patent vessels, recent stress test showed fixed defects and no ischemia. ho syncope and NSVT and post ILR placement. Severe pulm HTN HFpEF Chronic TP elevation SOB is multifactorial component of CHF but currently more c/w COPD and ILD exacerbation 1. CAD Stable Has chronic TP elevation unchanged from prior. No myocardial ischemia. 2. CHF Acute diastolic CHF, ho mitral regurgitation and mild-moderate Aortic stenosis. appears euvolemic agree with decreased lasix dose Monitor weight and strict I/Os monitor blood work bun/creat, electrolytes and replete as needed 3. Afib Continue with diltiazem. Continue pradaxa 4. NSVT No further long runs of nsvt pvcs, couplets, triplets with ichemic heart disease. Not on BB due to severity of lung disease. Monitor electrolytes daily. keep K>4, Mg >2 ok to dc tele
[2019-04-27] MEDS ORDERED: PIPERACILLIN/TAZOBACTAM 2.25 GM VIAL IVPB ONE (19:38)
[2019-04-27] MEDS ORDERED: DEXTROSE 5%-WATER - 50 ML IVPB ONE (19:38)
[2019-04-27] MEDS: PIPERACILLIN/TAZOB 2.25 GM 2.25 GM in DEXTROSE 5%-WATER - 50 ML IVPB SCH (19:48)
[2019-04-27 19:56] VITALS: BMI 21.7
[2019-04-27] MEDS: ROSUVASTATIN CA 20 MG TABLET (FP) PO SCH (22:41)
[2019-04-28] MEDS ORDERED: PIPERACILLIN/TAZOBACTAM 2.25 GM VIAL IVPB ONE ×3 (03:23→17:51)
[2019-04-28] MEDS ORDERED: DEXTROSE 5%-WATER - 50 ML IVPB ONE ×3 (03:24→17:51)
[2019-04-28] MEDS: methylPREDNISolone NA SUCC 40 MG/1 ML VIAL IVPUSH SCH ×3 (03:32→17:55)
[2019-04-28] MEDS: PIPERACILLIN/TAZOB 2.25 GM 2.25 GM in DEXTROSE 5%-WATER - 50 ML IVPB SCH ×3 (03:32→17:55)
[2019-04-28] MEDS: INSULIN SLIDING SCALE (NOVOLOG) 1 VIAL SQ SCH ×5 (06:10→22:41)
[2019-04-28] MEDS: INSULIN (LEVEMIR) 100 UNITS/ML UNITS SQ SCH (07:30)
--- NOTE | 2019-04-28 07:43 | PN ---
Progress Note, Physician - Current Medication List Current Medications: Active Medications Acetaminophen (Tylenol -) 650 mg PO Q6H PRN PRN Reason: PAIN LEVEL 1-5 Albuterol Sulfate (Ventolin 0.042trength) -) 1 amp NEB Q4H PRN PRN Reason: SHORT OF BREATH/WHEEZING Last Admin: 04/27/19 00:43 Dose: 1 amp Albuterol/Ipratropium (Duoneb -) 1 amp NEB RQID [facility] Last Admin: 04/27/19 20:00 Dose: 1 amp Aspirin (Asa -) 81 mg PO DAILY [facility] Last Admin: 04/27/19 10:02 Dose: 81 mg Dabigatran (Pradaxa -) 75 mg PO BID [facility] Last Admin: 04/27/19 22:42 Dose: 75 mg Diazepam (Valium -) 2 mg PO Q12H PRN PRN Reason: ANXIETY Last Admin: 04/27/19 22:42 Dose: 2 mg Diltiazem HCl (Cardizem Cd -) 120 mg PO DAILY [facility] Last Admin: 04/27/19 10:02 Dose: 120 mg Docusate Sodium (Colace -) 100 mg PO BID PRN PRN Reason: CONSTIPATION Last Admin: 04/27/19 22:42 Dose: 100 mg Furosemide (Lasix -) 20 mg PO DAILY [facility] Glycerin (Glycerin Suppository Adult -) 1 each [place] DAILY PRN PRN Reason: CONSTIPATION Last Admin: 04/23/19 22:05 Dose: 1 each Piperacillin Sod/Tazobactam (Sod 2.25 gm/ Dextrose) 50 mls @ 100 mls/hr IVPB Q8H-IV [facility]; Protocol Last Admin: 04/28/19 03:32 Dose: 100 mls/hr Insulin Aspart (Novolog Vial Sliding Scale -) 1 vial SQ ACHS [facility]; Protocol Last Admin: 04/28/19 06:10 Dose: Not Given Insulin Detemir (Levemir Vial) 10 units SQ AM [facility] Last Admin: 04/27/19 07:14 Dose: 10 units Methylprednisolone Sodium Succinate (Solu-Medrol -) 40 mg IVPUSH Q8H-IV [facility] Last Admin: 04/28/19 03:32 Dose: 40 mg Pantoprazole Sodium (Protonix -) 40 mg PO DAILY [facility] Last Admin: 04/27/19 10:02 Dose: 40 mg Rosuvastatin Calcium (Crestor -) 20 mg PO [facility] Last Admin: 04/27/19 22:41 Dose: 20 mg - Objective Vital Signs: Vital Signs Temperature 97.3 F L 04/28/19 05:53 Pulse Rate 63 04/28/19 05:53 Respiratory Rate 20 04/28/19 05:53 Blood Pressure 163/79 04/28/19 05:53 O2 Sat by Pulse Oximetry (%) 94 L 04/27/19 22:00 Cardiovascular: Yes: S1, S2 Respiratory: Yes: Diminished, On BiPap (off now) Gastrointestinal: Yes: Normal Bowel Sounds, Soft Labs: CBC, BMP 04/27/19 11:30 04/27/19 11:30 INR, PTT INR 1.40 (0.83-1.09) H 04/21/19 13:40 Assessment/Plan - Problems (1) Acute on chronic respiratory failure with hypoxia and hypercapnia Assessment/Plan: Pulmonary on board Bipap HS and prn O2 via NC if tolerated keep Spo2 >90% bronchodilators IV Medrol--TID CXR shows no acute pathology Code(s): J96.21 - ACUTE AND CHRONIC RESPIRATORY FAILURE WITH HYPOXIA; J96.22 - ACUTE AND CHRONIC RESPIRATORY FAILURE WITH HYPERCAPNIA (2) CHF (congestive heart failure) Assessment/Plan: Pulmonary and Cardiology on board Furosemide strict I&O low Na diet fluid restriction Code(s): I50.9 - HEART FAILURE, UNSPECIFIED Qualifiers: Heart failure type: unspecified Heart failure chronicity: acute Qualified Code(s): I50.9 - Heart failure, unspecified (3) SOB (shortness of breath) Assessment/Plan: Pulmonary on board Bipap HS and prn O2 via NC if tolerated keep Spo2 >90% bronchodilators IV Medrol CXR shows no acute pathology Code(s): R06.02 - SHORTNESS OF BREATH (4) Acute exacerbation of chronic obstructive pulmonary disease (COPD) Assessment/Plan: Pulmonary on board Bipap HS and prn O2 via NC if tolerated keep Spo2 >90% bronchodilators IV Medrol CXR shows no acute pathology Code(s): J44.1 - CHRONIC OBSTRUCTIVE PULMONARY DISEASE W (ACUTE) EXACERBATION (5) Atrial fibrillation Assessment/Plan: Pradaxa Cardizem for rate control Tele Monitoring Cardiology on board Code(s): I48.91 - UNSPECIFIED ATRIAL FIBRILLATION Qualifiers: Atrial fibrillation type: chronic (6) CKD (chronic kidney disease) Assessment/Plan: Renal on board BUN/Cr 97.8/2.3 monitor renal function daily being that patient is on Furosemide Code(s): N18.9 - CHRONIC KIDNEY DISEASE, UNSPECIFIED (7) Diabetes mellitus type 2, uncontrolled Assessment/Plan: [facility] Levemir diabetic diet Code(s): E11.65 - TYPE 2 DIABETES MELLITUS WITH HYPERGLYCEMIA (8) Dyslipidemia Assessment/Plan: Crestor Code(s): E78.5 - HYPERLIPIDEMIA, UNSPECIFIED (9) HTN (hypertension) Assessment/Plan: monitor BP Cardizem Code(s): I10 - ESSENTIAL (PRIMARY) HYPERTENSION Qualifiers: Hypertension type: essential hypertension Qualified Code(s): I10 - Essential (primary) hypertension
[2019-04-28] MEDS: ALBUTEROL SO4 2.5/IPRATROPIUM 0.5 INH SOL 3 ML VIAL.NEB. NEB SCH ×4 (07:45→20:07)
[2019-04-28 08:16] LABS: HEMATOCRIT 31.6 % (32.4-45.2); HEMOGLOBIN 10.6 GM/dL (10.7-15.3); MCH 30.7 pg (25.7-33.7); MCHC 33.5 g/dl (32.0-36.0); MEAN CELL VOLUME 91.6 fl (80-96); MEAN PLT VOLUME 9.8 fl (7.5-11.1); PLATELET COUNT 256 K/MM3 (134-434); RBC 3.45 M/mm3 (3.60-5.2); RDW 17.6 % (11.6-15.6); WHITE BLOOD COUNT 6.8 K/mm3 (4.0-10.0)
[2019-04-28 08:33] LABS: BILIRUBIN,TOTAL 1.1 mg/dL (0.2-1); BLOOD UREA NITROGEN 76.3 mg/dL (7-18); CALCIUM 8.6 mg/dL (8.5-10.1); CREATININE 1.8 mg/dL (0.55-1.3); MAGNESIUM 3.1 mg/dL (1.8-2.4); PHOSPHOROUS 5.2 mg/dL (2.5-4.9); POTASSIUM 3.7 mmol/L (3.5-5.1); TOT PROT 5.8 g/dl (6.4-8.2)
[2019-04-28] MEDS: PANTOPRAZOLE 40 MG TABLET PO SCH (09:48)
[2019-04-28] MEDS: DOCUSATE SODIUM 100 MG CAPSULE (FP) PO PRN (09:48)
[2019-04-28] MEDS: diazePAM 2 MG TABLET PO PRN (09:48)
[2019-04-28] MEDS: ASPIRIN 81 MG CHEWABLE TABLETS PO SCH (09:48)
[2019-04-28] MEDS: DABIGATRAN ETEXILATE MESYLATE 75 MG CAPSULE PO SCH ×2 (09:56→22:41)
[2019-04-28] MEDS ORDERED: FUROSEMIDE 20 MG TABLET (FP) PO SCH (10:00)
--- NOTE | 2019-04-28 11:02 | PN ---
Progress Note, Physician History of Present Illness: PULMONARY ALERT,SOB, PLACED ON BIPAP EARLIER - Current Medication List Current Medications: Active Medications Acetaminophen (Tylenol -) 650 mg PO Q6H PRN PRN Reason: PAIN LEVEL 1-5 Albuterol Sulfate (Ventolin 0.042trength) -) 1 amp NEB Q4H PRN PRN Reason: SHORT OF BREATH/WHEEZING Last Admin: 04/27/19 00:43 Dose: 1 amp Albuterol/Ipratropium (Duoneb -) 1 amp NEB RQID [facility] Last Admin: 04/28/19 07:45 Dose: 1 amp Aspirin (Asa -) 81 mg PO DAILY [facility] Last Admin: 04/28/19 09:48 Dose: 81 mg Dabigatran (Pradaxa -) 75 mg PO BID [facility] Last Admin: 04/28/19 09:56 Dose: 75 mg Diazepam (Valium -) 2 mg PO Q12H PRN PRN Reason: ANXIETY Last Admin: 04/28/19 09:48 Dose: 2 mg Diltiazem HCl (Cardizem Cd -) 120 mg PO DAILY [facility] Last Admin: 04/28/19 09:48 Dose: 120 mg Docusate Sodium (Colace -) 100 mg PO BID PRN PRN Reason: CONSTIPATION Last Admin: 04/28/19 09:48 Dose: 100 mg Furosemide (Lasix -) 20 mg PO DAILY [facility] Last Admin: 04/28/19 09:48 Dose: 20 mg Glycerin (Glycerin Suppository Adult -) 1 each [place] DAILY PRN PRN Reason: CONSTIPATION Last Admin: 04/23/19 22:05 Dose: 1 each Piperacillin Sod/Tazobactam (Sod 2.25 gm/ Dextrose) 50 mls @ 100 mls/hr IVPB Q8H-IV [facility]; Protocol Last Admin: 04/28/19 09:48 Dose: 100 mls/hr Insulin Aspart (Novolog Vial Sliding Scale -) 1 vial SQ ACHS [facility]; Protocol Last Admin: 04/28/19 10:48 Dose: 10 units Insulin Detemir (Levemir Vial) 10 units SQ AM [facility] Last Admin: 04/27/19 07:14 Dose: 10 units Methylprednisolone Sodium Succinate (Solu-Medrol -) 40 mg IVPUSH Q8H-IV [facility] Last Admin: 04/28/19 09:48 Dose: 40 mg Pantoprazole Sodium (Protonix -) 40 mg PO DAILY [facility] Last Admin: 04/28/19 09:48 Dose: 40 mg Rosuvastatin Calcium (Crestor -) 20 mg PO HS [facility] Last Admin: 04/27/19 22:41 Dose: 20 mg - Objective Vital Signs: Vital Signs Temperature 96.9 F L 04/28/19 09:00 Pulse Rate 71 04/28/19 09:00 Respiratory Rate 20 04/28/19 09:00 Blood Pressure 145/89 04/28/19 09:00 O2 Sat by Pulse Oximetry (%) 100 04/28/19 07:44 Constitutional: Yes: Calm, Thin, Other (DYSPNEIC) Eyes: Yes: WNL HENT: Yes: WNL Neck: Yes: WNL Cardiovascular: Yes: Pulse Irregular, S1, S2 Respiratory: Yes: Rhonchi, Wheezes (FEW SCATTERED RHONCHI AND WHEEZES) Gastrointestinal: Yes: Normal Bowel Sounds, Soft Extremities: Yes: WNL Edema: No Labs: CBC, BMP 04/28/19 06:40 04/28/19 06:40 INR, PTT INR 1.40 (0.83-1.09) H 04/21/19 13:40 - ....Imaging Chest X-ray: Report Reviewed, Image Reviewed Problem List - Problems (1) Acute on chronic respiratory failure with hypoxia and hypercapnia Code(s): J96.21 - ACUTE AND CHRONIC RESPIRATORY FAILURE WITH HYPOXIA; J96.22 - ACUTE AND CHRONIC RESPIRATORY FAILURE WITH HYPERCAPNIA (2) SOB (shortness of breath) Code(s): R06.02 - SHORTNESS OF BREATH (3) MURALI (acute kidney injury) Code(s): N17.9 - ACUTE KIDNEY FAILURE, UNSPECIFIED (4) Atrial fibrillation Code(s): I48.91 - UNSPECIFIED ATRIAL FIBRILLATION Qualifiers: Atrial fibrillation type: chronic (5) CAD S/P percutaneous coronary angioplasty Code(s): I25.10 - ATHSCL HEART DISEASE OF [place] CORONARY ARTERY W/O ANG PCTRS; Z98.61 - CORONARY ANGIOPLASTY STATUS (6) CHF exacerbation Code(s): I50.9 - HEART FAILURE, UNSPECIFIED Qualifiers: Heart failure type: unspecified Qualified Code(s): I50.9 - Heart failure, unspecified (7) Diabetes Code(s): E11.9 - TYPE 2 DIABETES MELLITUS WITHOUT COMPLICATIONS Qualifiers: Diabetes mellitus type: other specified (including YULISA) Diabetes mellitus group home insulin use: with lobsterman use Diabetes mellitus complication status: with unspecified complications (8) Dyslipidemia Code(s): E78.5 - HYPERLIPIDEMIA, UNSPECIFIED (9) Mitral valve regurgitation Code(s): I34.0 - NONRHEUMATIC MITRAL (VALVE) INSUFFICIENCY Qualifiers: Cardiac valve disease etiology: etiology unspecified Qualified Code(s): I34.0 - Nonrheumatic mitral (valve) insufficiency (10) Troponin I above reference range Code(s): R79.89 - OTHER SPECIFIED ABNORMAL FINDINGS OF BLOOD CHEMISTRY (11) Aortic stenosis Code(s): I35.0 - NONRHEUMATIC AORTIC (VALVE) STENOSIS Assessment/Plan IMP ACUTE ON CHRONIC HYPOXEMIC/HYPERCAPNEIC RESPIRATORY FAILURE IMPROVING COPD EXACERBATION IMPROVING CHF AFIB ASHD S/P STENT SEVERE PULMONARY HTN 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 PLAN MEDROL LASIX INHALED BRONCHODILATORS SUPPLEMENTAL O2 NIPPV NEEDED MONITOR LYTES,BUN,CREATININE DR LORA Problem List - Problems (1) Acute on chronic respiratory failure with hypoxia and hypercapnia Code(s): J96.21 - ACUTE AND CHRONIC RESPIRATORY FAILURE WITH HYPOXIA; J96.22 - ACUTE AND CHRONIC RESPIRATORY FAILURE WITH HYPERCAPNIA (2) SOB (shortness of breath) Code(s): R06.02 - SHORTNESS OF BREATH (3) MURALI (acute kidney injury) Code(s): N17.9 - ACUTE KIDNEY FAILURE, UNSPECIFIED (4) Atrial fibrillation Code(s): I48.91 - UNSPECIFIED ATRIAL FIBRILLATION Qualifiers: Atrial fibrillation type: chronic (5) CAD S/P percutaneous coronary angioplasty Code(s): I25.10 - ATHSCL HEART DISEASE OF [place] CORONARY ARTERY W/O ANG PCTRS; Z98.61 - CORONARY ANGIOPLASTY STATUS (6) CHF exacerbation Code(s): I50.9 - HEART FAILURE, UNSPECIFIED Qualifiers: Heart failure type: unspecified Qualified Code(s): I50.9 - Heart failure, unspecified (7) Diabetes Code(s): E11.9 - TYPE 2 DIABETES MELLITUS WITHOUT COMPLICATIONS Qualifiers: Diabetes mellitus type: other specified (including YULISA) Diabetes mellitus lobsterman insulin use: with group home use Diabetes mellitus complication status: with unspecified complications (8) Dyslipidemia Code(s): E78.5 - HYPERLIPIDEMIA, UNSPECIFIED (9) Mitral valve regurgitation Code(s): I34.0 - NONRHEUMATIC MITRAL (VALVE) INSUFFICIENCY Qualifiers: Cardiac valve disease etiology: etiology unspecified Qualified Code(s): I34.0 - Nonrheumatic mitral (valve) insufficiency (10) Troponin I above reference range Code(s): R79.89 - OTHER SPECIFIED ABNORMAL FINDINGS OF BLOOD CHEMISTRY (11) Aortic stenosis Code(s): I35.0 - NONRHEUMATIC AORTIC (VALVE) STENOSIS
[2019-04-28] MEDS ORDERED: INSULIN (NOVOLOG) ASPART 100 UNITS/ML 10ML VIAL ONE (12:04)
--- NOTE | 2019-04-28 12:44 | PN ---
Progress Note (short form) - Note Progress Note: Renal follow up for MURALI Seen and examined at the bedside awake and alert has some shortness of breath this am, better now no orthopnea making urine tolerating meals and drinking liquids no chest pain, chest pressure no fever or chills Vital Signs Temperature 96.9 F L 04/28/19 09:00 Pulse Rate 71 04/28/19 09:00 Respiratory Rate 20 04/28/19 10:00 Blood Pressure 145/89 04/28/19 09:00 O2 Sat by Pulse Oximetry (%) 96 04/28/19 10:00 Intake & Output 04/25/19 04/26/19 04/27/19 04/28/19 23:59 23:59 23:59 23:59 Intake Total 490 310 690 70 Balance 490 310 690 70 Weight 54.794 kg 54.794 kg 54.068 kg 54.34 kg NAD RRR Dec BS, + fine rales diffusely throughout the lung zamora soft NT/ND, no rebound or guarding no LE edema, clubbing or cyanosis no focal neurologic deficits CBC, BMP 04/28/19 06:40 04/28/19 06:40 Current Medications Acetaminophen (Tylenol -) 650 mg PO Q6H PRN PRN Reason: PAIN LEVEL 1-5 Albuterol Sulfate (Ventolin 0.042trength) -) 1 amp NEB Q4H PRN PRN Reason: SHORT OF BREATH/WHEEZING Last Admin: 04/27/19 00:43 Dose: 1 amp Albuterol/Ipratropium (Duoneb -) 1 amp NEB RQID [facility] Last Admin: 04/28/19 12:12 Dose: 1 amp Aspirin (Asa -) 81 mg PO DAILY [facility] Last Admin: 04/28/19 09:48 Dose: 81 mg Dabigatran (Pradaxa -) 75 mg PO BID [facility] Last Admin: 04/28/19 09:56 Dose: 75 mg Diazepam (Valium -) 2 mg PO Q12H PRN PRN Reason: ANXIETY Last Admin: 04/28/19 09:48 Dose: 2 mg Diltiazem HCl (Cardizem Cd -) 120 mg PO DAILY [facility] Last Admin: 04/28/19 09:48 Dose: 120 mg Docusate Sodium (Colace -) 100 mg PO BID PRN PRN Reason: CONSTIPATION Last Admin: 04/28/19 09:48 Dose: 100 mg Furosemide (Lasix -) 20 mg PO DAILY [facility] Last Admin: 04/28/19 09:48 Dose: 20 mg Glycerin (Glycerin Suppository Adult -) 1 each [place] DAILY PRN PRN Reason: CONSTIPATION Last Admin: 04/23/19 22:05 Dose: 1 each Piperacillin Sod/Tazobactam (Sod 2.25 gm/ Dextrose) 50 mls @ 100 mls/hr IVPB Q8H-IV [facility]; Protocol Last Admin: 04/28/19 09:48 Dose: 100 mls/hr Insulin Aspart (Novolog Vial Sliding Scale -) 1 vial SQ ACHS [facility]; Protocol Last Admin: 04/28/19 12:06 Dose: 7 units Insulin Detemir (Levemir Vial) 10 units SQ AM [facility] Last Admin: 04/28/19 07:30 Dose: Not Given Methylprednisolone Sodium Succinate (Solu-Medrol -) 40 mg IVPUSH Q8H-IV [facility] Last Admin: 04/28/19 09:48 Dose: 40 mg Pantoprazole Sodium (Protonix -) 40 mg PO DAILY [facility] Last Admin: 04/28/19 09:48 Dose: 40 mg Rosuvastatin Calcium (Crestor -) 20 mg PO HS [facility] Last Admin: 04/27/19 22:41 Dose: 20 mg 84 year old woman with history of COPD, CHF, CAD, hypertension, MVR, DM and atrial fibrillation who presented with shortness of breath and and admitted for CHF exacerbation with MURALI. 1. Acute kidney injury in setting of CHF 2. CHF exacerbation 3. CAD 4. COPD 5. DM Renal function improving. no evidence of obstruction on Renal US no overt electrolyte or acid/base disturbance at this time to warrant dialysis Urine studies show FeUrea of 42% indicative of some tubular injury UPCR is 0.5, subnephrotic range Can increase Lasix to 40mg daily as todays CXR is suggestive of slightly increasing congestion. Would hold MANDY/ARB for now Trend renal function and electrolytes daily Trend Phos and Mg Urine eosinophils pending BUN is disproportionately elevated due to steroids and not a reflection of uremia. Thank you Luis Orlando DO
--- NOTE | 2019-04-28 13:57 | PN ---
Progress Note (short form) - Note Progress Note: ID consult dictated frail 84 yo female with copd/LD on home oxygen, severe pulmonary HTN, afib, chf admitted on 04/21 with SOB for 3 days at home she has been treated with steroids/bronchodilators and lasix with some improvement noted to be more SOB and confused yesterday cxray with question of Ivan infiltrate she was started on zosyn asked to evaluate she reports breathing a bit better today denies cough throughout the admission difficult to assess if indeed she has a pneumonia given multiple lung issues no fevers or leukocytosis d/w dr cantu to consider chest ct to compare to prior from January for now to continue zosyn as ordered obtain influenza screen obtain legionella urinary antigen overall prognosis is guarded Problem List - Problems (1) Pneumonia Code(s): J18.9 - PNEUMONIA, UNSPECIFIED ORGANISM (2) ILD (interstitial lung disease) Code(s): J84.9 - INTERSTITIAL PULMONARY DISEASE, UNSPECIFIED (3) COPD exacerbation Code(s): J44.1 - CHRONIC OBSTRUCTIVE PULMONARY DISEASE W (ACUTE) EXACERBATION (4) CHF exacerbation Code(s): I50.9 - HEART FAILURE, UNSPECIFIED Qualifiers: Heart failure type: unspecified Qualified Code(s): I50.9 - Heart failure, unspecified
--- NOTE | 2019-04-28 15:02 | CONS ---
INFECTIOUS DISEASE CONSULTATION DATE OF CONSULTATION: DATE OF DICTATION: 04/28/2019 HISTORY OF PRESENT ILLNESS: This is an 84-year-old female who has a history of COPD. She is on home oxygen 3 L. She has a history of chronic obstructive pulmonary disease and interstitial lung disease, as well as severe pulmonary hypertension, coronary artery disease, congestive heart failure, and atrial fibrillation. She presented to the hospital with 3 days of worsening shortness of breath. She has no associated fevers or chills. She denies any cough. She was admitted on the to the hospital and was treated with steroids, Lasix, and diuretics. She reports that she is not on chronic steroids at home. There is no history of any travel. She lives with her daughter and son. She has a home health aide 3 days a week. She uses a cane to ambulate. PAST MEDICAL HISTORY: Notable for diabetes, congestive heart failure, atrial fibrillation, COPD, interstitial lung disease, coronary artery disease with stenting, severe pulmonary hypertension. She has had pneumonia in the past and she has chronic low back pain. SURGICAL HISTORY: Unremarkable. SOCIAL HISTORY: There is no history of recent cigarette use. There is no alcohol use. ALLERGIES: She has no known drug allergies. MEDICATIONS: At home included losartan, Linzess, Pradaxa, aspirin, vitamin D, Lasix, Cardizem, Lanoxin, glyburide, Januvia, and Crestor. REVIEW OF SYSTEMS: She denies any nausea, vomiting, cough, fevers or chills. PHYSICAL EXAMINATION: General: She is a frail, elderly woman in no acute distress. She is wearing a Ventimask. Vital Signs: Temperature is 96.9. She has had no fever since admission. Pulse is 71 and irregular, blood pressure is 145/89, respiratory rate is 20. She is saturating 96% and she is wearing a Ventimask. HEENT: She is normocephalic. Her eyes are anicteric. She has no thrush. Lungs: Have diminished breath sounds at the bases. Heart: Irregularly irregular. Abdomen: Soft. Nontender. Extremities: Have trace pretibial edema. LABORATORIES: Her white count is 6.8, hemoglobin 10.6, platelets are 256. BUN and creatinine are 76 and 1.8. Blood cultures on admission are negative. Yesterday, she apparently had an episode of worsening shortness of breath; at which time, an x-ray was obtained. There was a question of a patchy left lung infiltrate. She was started on piperacillin-tazobactam by pulmonary yesterday. I am asked to see her in followup. She has had a chest x-ray today on the that again shows cardiomegaly, increased lung markings which may represent congestion and a question of a left upper lobe infiltrate. In summary, this is a frail, 84-year-old woman who I am asked to evaluate for possible pneumonia. This indeed is a difficult evaluation, given her ILD, COPD, congestive heart failure, and severe pulmonary hypertension. She has no fevers or leukocytosis to suggest infection, but she did have acute decompensation yesterday and this improved with the addition of piperacillin-tazobactam. Case was discussed with Dr. Cerda, who she identifies as her outpatient materials and processes manager and who has been seeing her in the hospital. Would consider chest CT to compare it to prior CAT scan from January. For now, will continue Zosyn, as ordered. Re-evaluate after the chest ct. Overall prognosis is guarded. SUMI YORK M.D. [id number] MTDD
--- NOTE | 2019-04-28 16:57 | PN ---
Progress Note, Physician History of Present Illness: seen and examined today in nad. daughter at bedside. now off bipap on partial non-rebreather. more comfortable today. - Current Medication List Current Medications: Active Medications Acetaminophen (Tylenol -) 650 mg PO Q6H PRN PRN Reason: PAIN LEVEL 1-5 Albuterol Sulfate (Ventolin 0.042trength) -) 1 amp NEB Q4H PRN PRN Reason: SHORT OF BREATH/WHEEZING Last Admin: 04/27/19 00:43 Dose: 1 amp Albuterol/Ipratropium (Duoneb -) 1 amp NEB RQID [facility] Last Admin: 04/28/19 15:31 Dose: 1 amp Aspirin (Asa -) 81 mg PO DAILY [facility] Last Admin: 04/28/19 09:48 Dose: 81 mg Dabigatran (Pradaxa -) 75 mg PO BID [facility] Last Admin: 04/28/19 09:56 Dose: 75 mg Diazepam (Valium -) 2 mg PO Q12H PRN PRN Reason: ANXIETY Last Admin: 04/28/19 09:48 Dose: 2 mg Diltiazem HCl (Cardizem Cd -) 120 mg PO DAILY [facility] Last Admin: 04/28/19 09:48 Dose: 120 mg Docusate Sodium (Colace -) 100 mg PO BID PRN PRN Reason: CONSTIPATION Last Admin: 04/28/19 09:48 Dose: 100 mg Furosemide (Lasix -) 40 mg PO DAILY [facility] Glycerin (Glycerin Suppository Adult -) 1 each [place] DAILY PRN PRN Reason: CONSTIPATION Last Admin: 04/23/19 22:05 Dose: 1 each Piperacillin Sod/Tazobactam (Sod 2.25 gm/ Dextrose) 50 mls @ 100 mls/hr IVPB Q8H-IV [facility]; Protocol Last Admin: 04/28/19 09:48 Dose: 100 mls/hr Insulin Aspart (Novolog Vial Sliding Scale -) 1 vial SQ ACHS [facility]; Protocol Last Admin: 04/28/19 12:06 Dose: 7 units Insulin Detemir (Levemir Vial) 10 units SQ AM [facility] Last Admin: 04/28/19 07:30 Dose: Not Given Methylprednisolone Sodium Succinate (Solu-Medrol -) 40 mg IVPUSH Q8H-IV [facility] Last Admin: 02/28/20 09:48 Dose: 40 mg Pantoprazole Sodium (Protonix -) 40 mg PO DAILY [facility] Last Admin: 04/28/19 09:48 Dose: 40 mg Rosuvastatin Calcium (Crestor -) 20 mg PO HS [facility] Last Admin: 04/27/19 22:41 Dose: 20 mg - Objective Vital Signs: Vital Signs Temperature 97.3 F L 04/28/19 14:00 Pulse Rate 73 04/28/19 14:00 Respiratory Rate 04/28/19 14:00 Blood Pressure 140/96 04/28/19 14:00 O2 Sat by Pulse Oximetry (%) 96 04/28/19 15:30 Constitutional: Yes: No Distress, Calm Eyes: Yes: Conjunctiva Clear, EOM Intact HENT: Yes: Atraumatic, Normocephalic Neck: Yes: Supple, Trachea Midline Cardiovascular: Yes: Pulse Irregular, S1, S2. No: Regular Rate and Rhythm, Bradycardia, Tachycardia, Bruit, JVD, Gallop, Murmur, Rub, S3, S4, Varicosities Respiratory: Yes: Regular, On Venti-Mask, Rales, Rhonchi, SOB, Wheezes Gastrointestinal: Yes: Normal Bowel Sounds, Soft. No: Distention, Tenderness Extremities: Yes: WNL Edema: No Peripheral Pulses WNL: Yes Neurological: Yes: Alert, Oriented Psychiatric: Yes: Alert, Oriented Labs: CBC, BMP 04/28/19 06:40 04/28/19 06:40 INR, PTT INR 1.40 (0.83-1.09) H 04/21/19 13:40 - ....Imaging Chest X-ray: Report Reviewed, Image Reviewed EKG: Report Reviewed, Image Reviewed Other: Report Reviewed, Image Reviewed (tele-af, no sig events) Assessment/Plan She is an 84F COPD, ILD, with acute exacerbation CAD sp previous stents and last cath in 2017 showed patent vessels, recent stress test showed fixed defects and no ischemia. ho syncope and NSVT and post ILR placement. Severe pulm HTN HFpEF Chronic TP elevation SOB is multifactorial component of CHF but currently more c/w COPD and ILD exacerbation pulmonary following, started Abx yesterday CT chest is pending today 1. CAD Stable Has chronic TP elevation unchanged from prior. No myocardial ischemia. 2. CHF Acute diastolic CHF, ho mitral regurgitation and mild-moderate Aortic stenosis. not significantly volume overloaded currently cont po lasix Monitor weight and strict I/Os monitor blood work bun/creat, electrolytes and replete as needed 3. Afib Continue with diltiazem. Continue pradaxa 4. NSVT No further long runs of nsvt pvcs, couplets, triplets with ichemic heart disease. Not on BB due to severity of lung disease. Monitor electrolytes daily. keep K>4, Mg >2 ok to dc tele
[2019-04-28] MEDS: ROSUVASTATIN CA 20 MG TABLET (FP) PO SCH (22:41)
[2019-04-29] MEDS ORDERED: DEXTROSE 5%-WATER - 50 ML IVPB ONE ×3 (02:38→18:11)
[2019-04-29] MEDS ORDERED: PIPERACILLIN/TAZOBACTAM 2.25 GM VIAL IVPB ONE ×3 (02:38→18:11)
[2019-04-29] MEDS: methylPREDNISolone NA SUCC 40 MG/1 ML VIAL IVPUSH SCH ×3 (02:56→18:49)
[2019-04-29] MEDS: PIPERACILLIN/TAZOB 2.25 GM 2.25 GM in DEXTROSE 5%-WATER - 50 ML IVPB SCH ×3 (02:56→18:14)
[2019-04-29] MEDS: INSULIN SLIDING SCALE (NOVOLOG) 1 VIAL SQ SCH ×4 (06:04→21:47)
[2019-04-29] MEDS: INSULIN (LEVEMIR) 100 UNITS/ML UNITS SQ SCH (06:04)
[2019-04-29 07:36] LABS: BLOOD UREA NITROGEN 65.9 mg/dL (7-18); CALCIUM 8.8 mg/dL (8.5-10.1); CREATININE 1.6 mg/dL (0.55-1.3); PHOSPHOROUS 4.1 mg/dL (2.5-4.9); POTASSIUM 4.1 mmol/L (3.5-5.1)
[2019-04-29] MEDS: ALBUTEROL SO4 2.5/IPRATROPIUM 0.5 INH SOL 3 ML VIAL.NEB. NEB SCH ×4 (07:39→20:30)
--- NOTE | 2019-04-29 07:55 | PN ---
Progress Note, Physician Chief Complaint: +constipation Tele heart rate controlled with no significant pauses, brief 3 beat NSVT occasionally History of Present Illness: She is an 84F COPD, ILD, with acute exacerbation CAD sp previous stents and last cath in 2017 showed patent vessels, recent stress test showed fixed defects and no ischemia. ho syncope and NSVT and post ILR placement. Severe pulm HTN HFpEF Chronic TP elevation SOB is multifactorial component of CHF but currently more c/w COPD and ILD exacerbation - Current Medication List Current Medications: Active Medications Acetaminophen (Tylenol -) 650 mg PO Q6H PRN PRN Reason: PAIN LEVEL 1-5 Albuterol Sulfate (Ventolin 0.042trength) -) 1 amp NEB Q4H PRN PRN Reason: SHORT OF BREATH/WHEEZING Last Admin: 04/27/19 00:43 Dose: 1 amp Albuterol/Ipratropium (Duoneb -) 1 amp NEB RQID [facility] Last Admin: 04/29/19 07:39 Dose: 1 amp Aspirin (Asa -) 81 mg PO DAILY [facility] Last Admin: 04/28/19 09:48 Dose: 81 mg Dabigatran (Pradaxa -) 75 mg PO BID [facility] Last Admin: 04/28/19 22:41 Dose: 75 mg Diazepam (Valium -) 2 mg PO Q12H PRN PRN Reason: ANXIETY Last Admin: 04/28/19 09:48 Dose: 2 mg Diltiazem HCl (Cardizem Cd -) 120 mg PO DAILY [facility] Last Admin: 04/28/19 09:48 Dose: 120 mg Docusate Sodium (Colace -) 100 mg PO BID PRN PRN Reason: CONSTIPATION Last Admin: 04/28/19 09:48 Dose: 100 mg Furosemide (Lasix -) 40 mg PO DAILY [facility] Glycerin (Glycerin Suppository Adult -) 1 each [place] DAILY PRN PRN Reason: CONSTIPATION Last Admin: 04/23/19 22:05 Dose: 1 each Piperacillin Sod/Tazobactam (Sod 2.25 gm/ Dextrose) 50 mls @ 100 mls/hr IVPB Q8H-IV [facility]; Protocol Last Admin: 04/29/19 02:56 Dose: 100 mls/hr Insulin Aspart (Novolog Vial Sliding Scale -) 1 vial SQ ACHS [facility]; Protocol Last Admin: 04/29/19 06:04 Dose: Not Given Insulin Detemir (Levemir Vial) 10 units SQ AM [facility] Last Admin: 04/29/19 06:04 Dose: 10 units Methylprednisolone Sodium Succinate (Solu-Medrol -) 40 mg IVPUSH Q8H-IV [facility] Last Admin: 04/29/19 02:56 Dose: 40 mg Pantoprazole Sodium (Protonix -) 40 mg PO DAILY [facility] Last Admin: 04/28/19 09:48 Dose: 40 mg Rosuvastatin Calcium (Crestor -) 20 mg PO HS [facility] Last Admin: 04/28/19 22:41 Dose: 20 mg - Objective Vital Signs: Vital Signs Temperature 97.6 F 04/29/19 06:00 Pulse Rate 71 04/29/19 06:00 Respiratory Rate 20 04/29/19 06:00 Blood Pressure 141/63 04/29/19 06:00 O2 Sat by Pulse Oximetry (%) 98 04/29/19 07:38 Constitutional: Yes: No Distress Neck: Yes: Supple Cardiovascular: Yes: Pulse Irregular, Murmur (+3/6 HSM apex), S1, S2. No: JVD Respiratory: Yes: Wheezes Gastrointestinal: Yes: Soft Edema: No Labs: CBC, BMP 04/28/19 06:40 04/29/19 05:50 INR, PTT INR 1.40 (0.83-1.09) H 04/21/19 13:40 Problem List - Problems (1) CHF (congestive heart failure) Code(s): I50.9 - HEART FAILURE, UNSPECIFIED Qualifiers: Heart failure type: unspecified Heart failure chronicity: acute Qualified Code(s): I50.9 - Heart failure, unspecified (2) Arrhythmia Code(s): I49.9 - CARDIAC ARRHYTHMIA, UNSPECIFIED (3) Atrial fibrillation Code(s): I48.91 - UNSPECIFIED ATRIAL FIBRILLATION Qualifiers: Atrial fibrillation type: chronic (4) CAD S/P percutaneous coronary angioplasty Code(s): I25.10 - ATHSCL HEART DISEASE OF [place] CORONARY ARTERY W/O ANG PCTRS; Z98.61 - CORONARY ANGIOPLASTY STATUS (5) CHF exacerbation Code(s): I50.9 - HEART FAILURE, UNSPECIFIED Qualifiers: Heart failure type: unspecified Qualified Code(s): I50.9 - Heart failure, unspecified Assessment/Plan She is an 84F COPD, ILD, with acute exacerbation CAD sp previous stents and last cath in 2017 showed patent vessels, recent stress test showed fixed defects and no ischemia. ho syncope and NSVT and post ILR placement. Severe pulm HTN HFpEF Chronic TP elevation SOB is multifactorial component of CHF but currently more c/w COPD and ILD exacerbation 1. CAD Stable Has chronic TP elevation unchanged from prior. No myocardial ischemia. 2. CHF Acute diastolic CHF, ho mitral regurgitation and mild-moderate Aortic stenosis. Volume stable on PO furosemide Monitor weight and strict I/Os monitor blood work bun/creat, electrolytes and replete as needed 3. Afib HR controlled and no significant pauses noted Continue with diltiazem. Continue pradaxa 4. NSVT No further long runs of nsvt occasional 3 beats of NSVT with ichemic heart disease. Not on BB due to severity of lung disease. Monitor electrolytes daily. 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
[2019-04-29] MEDS: PANTOPRAZOLE 40 MG TABLET PO SCH (09:11)
[2019-04-29] MEDS: FUROSEMIDE 40 MG TABLET (FP) PO SCH (09:11)
[2019-04-29] MEDS: ASPIRIN 81 MG CHEWABLE TABLETS PO SCH (09:11)
[2019-04-29] MEDS ORDERED: PT OWN MED DRAWER 7, Y5N ONE ×4 (09:17→21:50)
[2019-04-29] MEDS: DABIGATRAN ETEXILATE MESYLATE 75 MG CAPSULE PO SCH ×2 (09:18→21:49)
[2019-04-29] MEDS: DOCUSATE SODIUM 100 MG CAPSULE (FP) PO PRN ×2 (09:18→21:49)
[2019-04-29] MEDS: GLYCERIN 1 RECTAL SUPPOSITORY, ADULT PR PRN (10:19)
--- NOTE | 2019-04-29 10:49 | PN ---
Progress Note, Physician Chief Complaint: AWAKE ALERT IN BED ON 02NC FEELING BETTER C/O CONSTIPATION - Current Medication List Current Medications: Active Medications Acetaminophen (Tylenol -) 650 mg PO Q6H PRN PRN Reason: PAIN LEVEL 1-5 Albuterol Sulfate (Ventolin 0.042trength) -) 1 amp NEB Q4H PRN PRN Reason: SHORT OF BREATH/WHEEZING Last Admin: 04/27/19 00:43 Dose: 1 amp Albuterol/Ipratropium (Duoneb -) 1 amp NEB RQID [facility] Last Admin: 04/29/19 07:39 Dose: 1 amp Aspirin (Asa -) 81 mg PO DAILY [facility] Last Admin: 04/29/19 09:11 Dose: 81 mg Dabigatran (Pradaxa -) 75 mg PO BID [facility] Last Admin: 04/29/19 09:18 Dose: 75 mg Diazepam (Valium -) 2 mg PO Q12H PRN PRN Reason: ANXIETY Last Admin: 04/28/19 09:48 Dose: 2 mg Diltiazem HCl (Cardizem Cd -) 120 mg PO DAILY [facility] Last Admin: 04/29/19 09:11 Dose: 120 mg Docusate Sodium (Colace -) 100 mg PO BID PRN PRN Reason: CONSTIPATION Last Admin: 04/29/19 09:18 Dose: 100 mg Furosemide (Lasix -) 40 mg PO DAILY [facility] Last Admin: 04/29/19 09:11 Dose: 40 mg Glycerin (Glycerin Suppository Adult -) 1 each [place] DAILY PRN PRN Reason: CONSTIPATION Last Admin: 04/29/19 10:19 Dose: 1 each Piperacillin Sod/Tazobactam (Sod 2.25 gm/ Dextrose) 50 mls @ 100 mls/hr IVPB Q8H-IV [facility]; Protocol Last Admin: 04/29/19 09:11 Dose: 100 mls/hr Insulin Aspart (Novolog Vial Sliding Scale -) 1 vial SQ ACHS [facility]; Protocol Last Admin: 04/29/19 06:04 Dose: Not Given Insulin Detemir (Levemir Vial) 10 units SQ AM [facility] Last Admin: 04/29/19 06:04 Dose: 10 units Methylprednisolone Sodium Succinate (Solu-Medrol -) 40 mg IVPUSH Q8H-IV [facility] Last Admin: 04/29/19 09:18 Dose: 40 mg Pantoprazole Sodium (Protonix -) 40 mg PO DAILY [facility] Last Admin: 04/29/19 09:11 Dose: 40 mg Rosuvastatin Calcium (Crestor -) 20 mg PO HS [facility] Last Admin: 04/28/19 22:41 Dose: 20 mg - Objective Vital Signs: Vital Signs Temperature 98 F 04/29/19 10:00 Pulse Rate 76 04/29/19 10:00 Respiratory Rate 20 04/29/19 10:00 Blood Pressure 133/56 L 04/29/19 10:00 O2 Sat by Pulse Oximetry (%) 98 04/29/19 07:38 Constitutional: Yes: Mild Distress Cardiovascular: Yes: Pulse Irregular Respiratory: Yes: Diminished, On Nasal O2 Gastrointestinal: Yes: Soft Genitourinary: Yes: Incontinence Musculoskeletal: Yes: Muscle Weakness Edema: No Peripheral Pulses WNL: Yes Integumentary: Yes: WNL Wound/Incision: Yes: Clean/Dry Neurological: Yes: Pre-Existing Deficit, Unsteady Gait Psychiatric: Yes: Other Labs: CBC, BMP 04/28/19 06:40 04/29/19 05:50 INR, PTT INR 1.40 (0.83-1.09) H 04/21/19 13:40 Problem List - Problems (1) CHF (congestive heart failure) Code(s): I50.9 - HEART FAILURE, UNSPECIFIED Qualifiers: Heart failure type: unspecified Heart failure chronicity: acute Qualified Code(s): I50.9 - Heart failure, unspecified (2) SOB (shortness of breath) Code(s): R06.02 - SHORTNESS OF BREATH (3) MURALI (acute kidney injury) Code(s): N17.9 - ACUTE KIDNEY FAILURE, UNSPECIFIED (4) Acute exacerbation of chronic obstructive pulmonary disease (COPD) Code(s): J44.1 - CHRONIC OBSTRUCTIVE PULMONARY DISEASE W (ACUTE) EXACERBATION (5) Arrhythmia Code(s): I49.9 - CARDIAC ARRHYTHMIA, UNSPECIFIED (6) Atrial fibrillation Code(s): I48.91 - UNSPECIFIED ATRIAL FIBRILLATION Qualifiers: Atrial fibrillation type: chronic (7) CAD S/P percutaneous coronary angioplasty Code(s): I25.10 - ATHSCL HEART DISEASE OF [place] CORONARY ARTERY W/O ANG PCTRS; Z98.61 - CORONARY ANGIOPLASTY STATUS (8) CHF exacerbation Code(s): I50.9 - HEART FAILURE, UNSPECIFIED Qualifiers: Heart failure type: unspecified Qualified Code(s): I50.9 - Heart failure, unspecified (9) Diabetes mellitus type 2, uncontrolled Code(s): E11.65 - TYPE 2 DIABETES MELLITUS WITH HYPERGLYCEMIA (10) Dyslipidemia Code(s): E78.5 - HYPERLIPIDEMIA, UNSPECIFIED (11) Mitral valve regurgitation Code(s): I34.0 - NONRHEUMATIC MITRAL (VALVE) INSUFFICIENCY Qualifiers: Cardiac valve disease etiology: etiology unspecified Qualified Code(s): I34.0 - Nonrheumatic mitral (valve) insufficiency (12) Pneumonia Code(s): J18.9 - PNEUMONIA, UNSPECIFIED ORGANISM Assessment/Plan CARDIOLOGY EVAL APPRECIATED CONTINUE CURRENT MEDS PULMONARY EVAL STEROIDS FOR COPD SOAP [place] ENEMAS, DO NOT USE FLEET ENEMAS WITH RENAL FUNCTION OOB TO CHAIR WITH ASSIST WILL NEED SNF WHEN MEDICALLY CLEARED
[2019-04-29] MEDS ORDERED: INSULIN (NOVOLOG) ASPART 100 UNITS/ML 10ML VIAL ONE (11:36)
--- NOTE | 2019-04-29 14:54 | PN ---
Progress Note (short form) - Note Progress Note: NAD on NC O2. Less SOB. No acute events overnight. Intake & Output 04/26/19 04/27/19 04/28/19 04/29/19 23:59 23:59 23:59 23:59 Intake Total 310 690 180 50 Balance 310 690 180 50 Weight 120 lb 12.8 oz 119 lb 3.2 oz 119 lb 12.8 oz 120 lb 6.4 oz Last Vital Signs Temp Pulse Resp BP Pulse Ox 98 F 76 20 133/56 L 98 04/29/19 10:00 04/29/19 10:00 04/29/19 10:00 04/29/19 10:00 04/29/19 07:38 Active Medications Acetaminophen (Tylenol -) 650 mg PO Q6H PRN PRN Reason: PAIN LEVEL 1-5 Albuterol Sulfate (Ventolin 0.042trength) -) 1 amp NEB Q4H PRN PRN Reason: SHORT OF BREATH/WHEEZING Last Admin: 04/27/19 00:43 Dose: 1 amp Albuterol/Ipratropium (Duoneb -) 1 amp NEB RQID [facility] Last Admin: 04/29/19 11:44 Dose: 1 amp Aspirin (Asa -) 81 mg PO DAILY [facility] Last Admin: 04/29/19 09:11 Dose: 81 mg Dabigatran (Pradaxa -) 75 mg PO BID [facility] Last Admin: 04/29/19 09:18 Dose: 75 mg Diazepam (Valium -) 2 mg PO Q12H PRN PRN Reason: ANXIETY Last Admin: 04/28/19 09:48 Dose: 2 mg Diltiazem HCl (Cardizem Cd -) 120 mg PO DAILY [facility] Last Admin: 04/29/19 09:11 Dose: 120 mg Docusate Sodium (Colace -) 100 mg PO BID PRN PRN Reason: CONSTIPATION Last Admin: 04/29/19 09:18 Dose: 100 mg Furosemide (Lasix -) 40 mg PO DAILY [facility] Last Admin: 04/29/19 09:11 Dose: 40 mg Glycerin (Glycerin Suppository Adult -) 1 each [place] DAILY PRN PRN Reason: CONSTIPATION Last Admin: 04/29/19 10:19 Dose: 1 each Piperacillin Sod/Tazobactam (Sod 2.25 gm/ Dextrose) 50 mls @ 100 mls/hr IVPB Q8H-IV [facility]; Protocol Last Admin: 04/29/19 09:11 Dose: 100 mls/hr Insulin Aspart (Novolog Vial Sliding Scale -) 1 vial SQ ACHS [facility]; Protocol Last Admin: 04/29/19 11:37 Dose: 14 units Insulin Detemir (Levemir Vial) 10 units SQ AM [facility] Last Admin: 04/29/19 06:04 Dose: 10 units Methylprednisolone Sodium Succinate (Solu-Medrol -) 40 mg IVPUSH Q8H-IV [facility] Last Admin: 04/29/19 09:18 Dose: 40 mg Pantoprazole Sodium (Protonix -) 40 mg PO DAILY [facility] Last Admin: 04/29/19 09:11 Dose: 40 mg Rosuvastatin Calcium (Crestor -) 20 mg PO HS [facility] Last Admin: 04/28/19 22:41 Dose: 20 mg Constitutional: Yes: Mildly tachypneic at rest Eyes: Yes: WNL HENT: Yes: WNL Neck: Yes: WNL Cardiovascular: Yes: Pulse Irregular, S1, S2 Respiratory: Yes: Bilateral rhonchi and wheezes Gastrointestinal: Yes: Normal Bowel Sounds, Soft Extremities: Yes: WNL Edema: No Labs: Laboratory Results - last 24 hr 04/26/19 04/28/19 04/28/19 11:50 14:30 16:34 Sodium Potassium Chloride Carbon Dioxide Anion Gap BUN Creatinine Est GFR (CKD-EPI)AfAm Est GFR (CKD-EPI)NonAf POC Glucometer 490 Random Glucose Calcium Phosphorus Magnesium Urine Eosinophils None seen Influenza A (Rapid) Negative Influenza B (Rapid) Negative 04/28/19 04/28/19 04/28/19 16:38 19:20 22:39 Sodium Potassium Chloride Carbon Dioxide Anion Gap BUN Creatinine Est GFR (CKD-EPI)AfAm Est GFR (CKD-EPI)NonAf POC Glucometer 463 291 Random Glucose 437 H* Calcium Phosphorus Magnesium Urine Eosinophils Influenza A (Rapid) Influenza B (Rapid) 04/29/19 04/29/19 04/29/19 05:48 05:50 11:33 Sodium 138 Potassium 4.1 Chloride 97 L Carbon Dioxide 37 H Anion Gap 4 L BUN 65.9 H Creatinine 1.6 H Est GFR (CKD-EPI)AfAm 33.47 Est GFR (CKD-EPI)NonAf 28.88 POC Glucometer 187 427 Random Glucose 198 H Calcium 8.8 Phosphorus 4.1 Magnesium 3.0 H Urine Eosinophils Influenza A (Rapid) Influenza B (Rapid) - ....Imaging Chest X-ray: Report Reviewed, Image Reviewed Problem List - Problems (1) Acute on chronic respiratory failure with hypoxia and hypercapnia Code(s): J96.21 - ACUTE AND CHRONIC RESPIRATORY FAILURE WITH HYPOXIA; J96.22 - ACUTE AND CHRONIC RESPIRATORY FAILURE WITH HYPERCAPNIA (2) SOB (shortness of breath) Code(s): R06.02 - SHORTNESS OF BREATH (3) MURALI (acute kidney injury) Code(s): N17.9 - ACUTE KIDNEY FAILURE, UNSPECIFIED (4) Atrial fibrillation Code(s): I48.91 - UNSPECIFIED ATRIAL FIBRILLATION Qualifiers: Atrial fibrillation type: chronic (5) CAD S/P percutaneous coronary angioplasty Code(s): I25.10 - ATHSCL HEART DISEASE OF [place] CORONARY ARTERY W/O ANG PCTRS; Z98.61 - CORONARY ANGIOPLASTY STATUS (6) CHF exacerbation Code(s): I50.9 - HEART FAILURE, UNSPECIFIED Qualifiers: Heart failure type: unspecified Qualified Code(s): I50.9 - Heart failure, unspecified (7) Diabetes Code(s): E11.9 - TYPE 2 DIABETES MELLITUS WITHOUT COMPLICATIONS Qualifiers: Diabetes mellitus type: other specified (including YULISA) Diabetes mellitus snf insulin use: with technician terminal and repeater use Diabetes mellitus complication status: with unspecified complications (8) Dyslipidemia Code(s): E78.5 - HYPERLIPIDEMIA, UNSPECIFIED (9) Mitral valve regurgitation Code(s): I34.0 - NONRHEUMATIC MITRAL (VALVE) INSUFFICIENCY Qualifiers: Cardiac valve disease etiology: etiology unspecified Qualified Code(s): I34.0 - Nonrheumatic mitral (valve) insufficiency (10) Troponin I above reference range Code(s): R79.89 - OTHER SPECIFIED ABNORMAL FINDINGS OF BLOOD CHEMISTRY (11) Aortic stenosis Code(s): I35.0 - NONRHEUMATIC AORTIC (VALVE) STENOSIS Assessment/Plan IMP ACUTE ON CHRONIC HYPOXEMIC/HYPERCAPNEIC RESPIRATORY FAILURE IMPROVING COPD EXACERBATION IMPROVING CHF AFIB ASHD S/P STENT SEVERE PULMONARY HTN 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
[2019-04-29] MEDS: ROSUVASTATIN CA 20 MG TABLET (FP) PO SCH (21:47)
[2019-04-30] MEDS ORDERED: PIPERACILLIN/TAZOBACTAM 2.25 GM VIAL IVPB ONE ×3 (01:24→18:03)
[2019-04-30] MEDS ORDERED: DEXTROSE 5%-WATER - 50 ML IVPB ONE ×3 (01:24→18:03)
[2019-04-30] MEDS: PIPERACILLIN/TAZOB 2.25 GM 2.25 GM in DEXTROSE 5%-WATER - 50 ML IVPB SCH ×3 (01:31→18:06)
[2019-04-30] MEDS: methylPREDNISolone NA SUCC 40 MG/1 ML VIAL IVPUSH SCH ×3 (01:31→21:28)
[2019-04-30] MEDS: INSULIN SLIDING SCALE (NOVOLOG) 1 VIAL SQ SCH ×4 (06:56→21:29)
[2019-04-30] MEDS: INSULIN (LEVEMIR) 100 UNITS/ML UNITS SQ SCH (06:56)
[2019-04-30] MEDS: ALBUTEROL SO4 2.5/IPRATROPIUM 0.5 INH SOL 3 ML VIAL.NEB. NEB SCH ×4 (07:31→20:15)
[2019-04-30] MEDS ORDERED: PT OWN MED DRAWER 7, Y5N ONE ×3 (09:23→21:04)
[2019-04-30] MEDS: PANTOPRAZOLE 40 MG TABLET PO SCH (09:29)
[2019-04-30] MEDS: ASPIRIN 81 MG CHEWABLE TABLETS PO SCH (09:29)
[2019-04-30] MEDS: DOCUSATE SODIUM 100 MG CAPSULE (FP) PO PRN (09:29)
[2019-04-30] MEDS: DABIGATRAN ETEXILATE MESYLATE 75 MG CAPSULE PO SCH ×2 (09:29→21:28)
[2019-04-30] MEDS: FUROSEMIDE 40 MG TABLET (FP) PO SCH (09:29)
--- NOTE | 2019-04-30 10:33 | PN ---
Progress Note, Physician Chief Complaint: AWAKE ALERT PATIENT HAD A BOWEL MOVEMENT THIS MORNING STILL WITH SOB ON EXERTION - Current Medication List Current Medications: Active Medications Acetaminophen (Tylenol -) 650 mg PO Q6H PRN PRN Reason: PAIN LEVEL 1-5 Albuterol Sulfate (Ventolin 0.042trength) -) 1 amp NEB Q4H PRN PRN Reason: SHORT OF BREATH/WHEEZING Last Admin: 04/27/19 00:43 Dose: 1 amp Albuterol/Ipratropium (Duoneb -) 1 amp NEB RQID [facility] Last Admin: 04/30/19 07:31 Dose: 1 amp Aspirin (Asa -) 81 mg PO DAILY [facility] Last Admin: 04/30/19 09:29 Dose: 81 mg Dabigatran (Pradaxa -) 75 mg PO BID [facility] Last Admin: 04/30/19 09:29 Dose: 75 mg Diazepam (Valium -) 2 mg PO Q12H PRN PRN Reason: ANXIETY Last Admin: 04/28/19 09:48 Dose: 2 mg Diltiazem HCl (Cardizem Cd -) 120 mg PO DAILY [facility] Last Admin: 04/30/19 09:29 Dose: 120 mg Docusate Sodium (Colace -) 100 mg PO BID PRN PRN Reason: CONSTIPATION Last Admin: 04/30/19 09:29 Dose: 100 mg Furosemide (Lasix -) 40 mg PO DAILY [facility] Last Admin: 04/30/19 09:29 Dose: 40 mg Glycerin (Glycerin Suppository Adult -) 1 each [place] DAILY PRN PRN Reason: CONSTIPATION Last Admin: 04/29/19 10:19 Dose: 1 each Piperacillin Sod/Tazobactam (Sod 2.25 gm/ Dextrose) 50 mls @ 100 mls/hr IVPB Q8H-IV [facility]; Protocol Last Admin: 04/30/19 09:28 Dose: 100 mls/hr Insulin Aspart (Novolog Vial Sliding Scale -) 1 vial SQ ACHS [facility]; Protocol Last Admin: 04/30/19 06:56 Dose: 2 units Insulin Detemir (Levemir Vial) 10 units SQ AM [facility] Last Admin: 04/30/19 06:56 Dose: 10 units Methylprednisolone Sodium Succinate (Solu-Medrol -) 40 mg IVPUSH Q8H-IV [facility] Last Admin: 03/01/20 09:28 Dose: 40 mg Pantoprazole Sodium (Protonix -) 40 mg PO DAILY [facility] Last Admin: 04/30/19 09:29 Dose: 40 mg Rosuvastatin Calcium (Crestor -) 20 mg PO HS [facility] Last Admin: 04/29/19 21:47 Dose: 20 mg - Objective Vital Signs: Vital Signs Temperature 98 F 04/30/19 09:00 Pulse Rate 78 04/30/19 09:00 Respiratory Rate 20 04/30/19 09:00 Blood Pressure 144/72 04/30/19 09:00 O2 Sat by Pulse Oximetry (%) 98 04/30/19 07:30 Constitutional: Yes: Mild Distress Cardiovascular: Yes: Pulse Irregular Respiratory: Yes: Diminished, On Nasal O2 Gastrointestinal: Yes: Soft Genitourinary: Yes: Incontinence Musculoskeletal: Yes: Muscle Weakness Neurological: Yes: Pre-Existing Deficit Labs: CBC, BMP 04/28/19 06:40 04/29/19 05:50 INR, PTT INR 1.40 (0.83-1.09) H 04/21/19 13:40 Problem List - Problems (1) CHF (congestive heart failure) Code(s): I50.9 - HEART FAILURE, UNSPECIFIED Qualifiers: Heart failure type: unspecified Heart failure chronicity: acute Qualified Code(s): I50.9 - Heart failure, unspecified (2) SOB (shortness of breath) Code(s): R06.02 - SHORTNESS OF BREATH (3) MURALI (acute kidney injury) Code(s): N17.9 - ACUTE KIDNEY FAILURE, UNSPECIFIED (4) Acute exacerbation of chronic obstructive pulmonary disease (COPD) Code(s): J44.1 - CHRONIC OBSTRUCTIVE PULMONARY DISEASE W (ACUTE) EXACERBATION (5) Arrhythmia Code(s): I49.9 - CARDIAC ARRHYTHMIA, UNSPECIFIED (6) Atrial fibrillation Code(s): I48.91 - UNSPECIFIED ATRIAL FIBRILLATION Qualifiers: Atrial fibrillation type: chronic (7) CAD S/P percutaneous coronary angioplasty Code(s): I25.10 - ATHSCL HEART DISEASE OF [place] CORONARY ARTERY W/O ANG PCTRS; Z98.61 - CORONARY ANGIOPLASTY STATUS (8) CHF exacerbation Code(s): I50.9 - HEART FAILURE, UNSPECIFIED Qualifiers: Heart failure type: unspecified Qualified Code(s): I50.9 - Heart failure, unspecified (9) Diabetes mellitus type 2, uncontrolled Code(s): E11.65 - TYPE 2 DIABETES MELLITUS WITH HYPERGLYCEMIA (10) Dyslipidemia Code(s): E78.5 - HYPERLIPIDEMIA, UNSPECIFIED (11) Mitral valve regurgitation Code(s): I34.0 - NONRHEUMATIC MITRAL (VALVE) INSUFFICIENCY Qualifiers: Cardiac valve disease etiology: etiology unspecified Qualified Code(s): I34.0 - Nonrheumatic mitral (valve) insufficiency (12) Pneumonia Code(s): J18.9 - PNEUMONIA, UNSPECIFIED ORGANISM Assessment/Plan CARDIOLOGY EVAL APPRECIATED CONTINUE CURRENT MEDS PULMONARY EVAL APPRECIATED CT CHEST SHOWS ATELECTASIS RLL WITH CONGESTION STEROIDS FOR COPD TAPER SLOWLY SOAP [place] ENEMAS, DO NOT USE FLEET ENEMAS WITH RENAL FUNCTION OOB TO CHAIR WITH ASSIST WILL NEED SNF WHEN MEDICALLY CLEARED
--- NOTE | 2019-04-30 14:52 | PN ---
Progress Note (short form) - Note Progress Note: NAD on [place] O2. Less SOB. No acute events overnight. CT: pulmonar vascular congestion / effusion / atelectasis Intake & Output 04/27/19 04/28/19 04/29/19 04/30/19 23:59 23:59 23:59 23:59 Intake Total 690 180 300 300 Balance 690 180 300 300 Weight 119 lb 3.2 oz 119 lb 12.8 oz 120 lb 6.4 oz Last Vital Signs Temp Pulse Resp BP Pulse Ox 98 F 78 20 144/72 95 04/30/19 09:00 04/30/19 09:00 04/30/19 09:00 04/30/19 09:00 04/30/19 10:00 Active Medications Acetaminophen (Tylenol -) 650 mg PO Q6H PRN PRN Reason: PAIN LEVEL 1-5 Albuterol Sulfate (Ventolin 0.042trength) -) 1 amp NEB Q4H PRN PRN Reason: SHORT OF BREATH/WHEEZING Last Admin: 04/27/19 00:43 Dose: 1 amp Albuterol/Ipratropium (Duoneb -) 1 amp NEB RQID [facility] Last Admin: 04/30/19 11:45 Dose: 1 amp Aspirin (Asa -) 81 mg PO DAILY [facility] Last Admin: 04/30/19 09:29 Dose: 81 mg Dabigatran (Pradaxa -) 75 mg PO BID [facility] Last Admin: 04/30/19 09:29 Dose: 75 mg Diazepam (Valium -) 2 mg PO Q12H PRN PRN Reason: ANXIETY Last Admin: 04/28/19 09:48 Dose: 2 mg Diltiazem HCl (Cardizem Cd -) 120 mg PO DAILY [facility] Last Admin: 04/30/19 09:29 Dose: 120 mg Docusate Sodium (Colace -) 100 mg PO BID PRN PRN Reason: CONSTIPATION Last Admin: 04/30/19 09:29 Dose: 100 mg Furosemide (Lasix -) 40 mg PO DAILY [facility] Last Admin: 04/30/19 09:29 Dose: 40 mg Glycerin (Glycerin Suppository Adult -) 1 each [place] DAILY PRN PRN Reason: CONSTIPATION Last Admin: 04/29/19 10:19 Dose: 1 each Piperacillin Sod/Tazobactam (Sod 2.25 gm/ Dextrose) 50 mls @ 100 mls/hr IVPB Q8H-IV [facility]; Protocol Last Admin: 04/30/19 09:28 Dose: 100 mls/hr Insulin Aspart (Novolog Vial Sliding Scale -) 1 vial SQ ACHS [facility]; Protocol Last Admin: 04/30/19 11:24 Dose: 10 units Insulin Detemir (Levemir Vial) 10 units SQ AM [facility] Last Admin: 04/30/19 06:56 Dose: 10 units Methylprednisolone Sodium Succinate (Solu-Medrol -) 40 mg IVPUSH Q8H-IV [facility] Last Admin: 04/30/19 09:28 Dose: 40 mg Pantoprazole Sodium (Protonix -) 40 mg PO DAILY [facility] Last Admin: 04/30/19 09:29 Dose: 40 mg Rosuvastatin Calcium (Crestor -) 20 mg PO HS [facility] Last Admin: 04/29/19 21:47 Dose: 20 mg Constitutional: Yes: Mildly tachypneic at rest Eyes: Yes: WNL HENT: Yes: WNL Neck: Yes: WNL Cardiovascular: Yes: Pulse Irregular, S1, S2 Respiratory: Yes: Bibasilar rales/rhonchi, no wheezes Gastrointestinal: Yes: Normal Bowel Sounds, Soft Extremities: Yes: WNL Edema: No Labs: Laboratory Results - last 24 hr 04/29/19 04/29/19 04/30/19 17:02 20:15 06:42 POC Glucometer 99 220 237 04/30/19 11:21 POC Glucometer 382 - ....Imaging Chest X-ray: Report Reviewed, Image Reviewed Problem List - Problems (1) Acute on chronic respiratory failure with hypoxia and hypercapnia Code(s): J96.21 - ACUTE AND CHRONIC RESPIRATORY FAILURE WITH HYPOXIA; J96.22 - ACUTE AND CHRONIC RESPIRATORY FAILURE WITH HYPERCAPNIA (2) SOB (shortness of breath) Code(s): R06.02 - SHORTNESS OF BREATH (3) MURALI (acute kidney injury) Code(s): N17.9 - ACUTE KIDNEY FAILURE, UNSPECIFIED (4) Atrial fibrillation Code(s): I48.91 - UNSPECIFIED ATRIAL FIBRILLATION Qualifiers: Atrial fibrillation type: chronic (5) CAD S/P percutaneous coronary angioplasty Code(s): I25.10 - ATHSCL HEART DISEASE OF [place] CORONARY ARTERY W/O ANG PCTRS; Z98.61 - CORONARY ANGIOPLASTY STATUS (6) CHF exacerbation Code(s): I50.9 - HEART FAILURE, UNSPECIFIED Qualifiers: Heart failure type: unspecified Qualified Code(s): I50.9 - Heart failure, unspecified (7) Diabetes Code(s): E11.9 - TYPE 2 DIABETES MELLITUS WITHOUT COMPLICATIONS Qualifiers: Diabetes mellitus type: other specified (including YULISA) Diabetes mellitus retirement insulin use: with supervisor intermediates use Diabetes mellitus complication status: with unspecified complications (8) Dyslipidemia Code(s): E78.5 - HYPERLIPIDEMIA, UNSPECIFIED (9) Mitral valve regurgitation Code(s): I34.0 - NONRHEUMATIC MITRAL (VALVE) INSUFFICIENCY Qualifiers: Cardiac valve disease etiology: etiology unspecified Qualified Code(s): I34.0 - Nonrheumatic mitral (valve) insufficiency (10) Troponin I above reference range Code(s): R79.89 - OTHER SPECIFIED ABNORMAL FINDINGS OF BLOOD CHEMISTRY (11) Aortic stenosis Code(s): I35.0 - NONRHEUMATIC AORTIC (VALVE) STENOSIS Assessment/Plan IMP ACUTE ON CHRONIC HYPOXEMIC/HYPERCAPNEIC RESPIRATORY FAILURE IMPROVING COPD EXACERBATION IMPROVING CHF AFIB ASHD S/P STENT SEVERE PULMONARY HTN 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
[2019-04-30] MEDS ORDERED: methylPREDNISolone NA SUCC 40 MG/1 ML VIAL IVPUSH SCH (15:00)
[2019-04-30] MEDS: ROSUVASTATIN CA 20 MG TABLET (FP) PO SCH (21:28)
[2019-05-01] MEDS ORDERED: DEXTROSE 5%-WATER - 50 ML IVPB ONE ×4 (01:16→21:28)
[2019-05-01] MEDS ORDERED: PIPERACILLIN/TAZOBACTAM 2.25 GM VIAL IVPB ONE ×4 (01:16→21:28)
[2019-05-01] MEDS: PIPERACILLIN/TAZOB 2.25 GM 2.25 GM in DEXTROSE 5%-WATER - 50 ML IVPB SCH ×3 (01:38→18:44)
[2019-05-01] MEDS: ALBUTEROL SO4 0.042% IH SOL 1.25 MG/3 ML VIAL.NEB NEB PRN (03:25)
[2019-05-01] MEDS: INSULIN SLIDING SCALE (NOVOLOG) 1 VIAL SQ SCH ×4 (06:07→22:05)
[2019-05-01] MEDS: INSULIN (LEVEMIR) 100 UNITS/ML UNITS SQ SCH (06:09)
[2019-05-01 06:57] LABS: HEMATOCRIT 31.7 % (32.4-45.2); HEMOGLOBIN 10.4 GM/dL (10.7-15.3); MCH 30.4 pg (25.7-33.7); MCHC 32.8 g/dl (32.0-36.0); MEAN CELL VOLUME 92.5 fl (80-96); MEAN PLT VOLUME 9.5 fl (7.5-11.1); PLATELET COUNT 221 K/MM3 (134-434); RBC 3.43 M/mm3 (3.60-5.2); RDW 18.3 % (11.6-15.6); WHITE BLOOD COUNT 6.5 K/mm3 (4.0-10.0)
[2019-05-01 07:23] LABS: BLOOD UREA NITROGEN 57.9 mg/dL (7-18); CALCIUM 8.1 mg/dL (8.5-10.1); CREATININE 1.6 mg/dL (0.55-1.3); MAGNESIUM 2.6 mg/dL (1.8-2.4); POTASSIUM 3.9 mmol/L (3.5-5.1)
--- NOTE | 2019-05-01 08:39 | PN ---
Progress Note, Physician Chief Complaint: PATIENT HAD 02SAT OF <70% ON 2L NC EATING BREAKFAST AND C/O SOB. NO CHEST PAIN ALERT AND ORIENTED - Current Medication List Current Medications: Active Medications Acetaminophen (Tylenol -) 650 mg PO Q6H PRN PRN Reason: PAIN LEVEL 1-5 Albuterol Sulfate (Ventolin 0.042trength) -) 1 amp NEB Q4H PRN PRN Reason: SHORT OF BREATH/WHEEZING Last Admin: 05/01/19 03:25 Dose: 1 amp Albuterol/Ipratropium (Duoneb -) 1 amp NEB RQID [facility] Last Admin: 04/30/19 20:15 Dose: 1 amp Aspirin (Asa -) 81 mg PO DAILY [facility] Last Admin: 04/30/19 09:29 Dose: 81 mg Dabigatran (Pradaxa -) 75 mg PO BID [facility] Last Admin: 04/30/19 21:28 Dose: 75 mg Diazepam (Valium -) 2 mg PO Q12H PRN PRN Reason: ANXIETY Last Admin: 04/28/19 09:48 Dose: 2 mg Diltiazem HCl (Cardizem Cd -) 120 mg PO DAILY [facility] Last Admin: 04/30/19 09:29 Dose: 120 mg Docusate Sodium (Colace -) 100 mg PO BID PRN PRN Reason: CONSTIPATION Last Admin: 04/30/19 09:29 Dose: 100 mg Furosemide (Lasix -) 40 mg PO DAILY [facility] Last Admin: 04/30/19 09:29 Dose: 40 mg Glycerin (Glycerin Suppository Adult -) 1 each [place] DAILY PRN PRN Reason: CONSTIPATION Last Admin: 04/29/19 10:19 Dose: 1 each Piperacillin Sod/Tazobactam (Sod 2.25 gm/ Dextrose) 50 mls @ 100 mls/hr IVPB Q8H-IV [facility]; Protocol Last Admin: 05/01/19 01:38 Dose: 100 mls/hr Insulin Aspart (Novolog Vial Sliding Scale -) 1 vial SQ ACHS [facility]; Protocol Last Admin: 05/01/19 06:07 Dose: 5 units Insulin Detemir (Levemir Vial) 10 units SQ AM [facility] Last Admin: 05/01/19 06:09 Dose: 10 units Methylprednisolone Sodium Succinate (Solu-Medrol -) 30 mg IVPUSH BID [facility] Last Admin: 04/30/19 21:28 Dose: 30 mg Pantoprazole Sodium (Protonix -) 40 mg PO DAILY [facility] Last Admin: 04/30/19 09:29 Dose: 40 mg Rosuvastatin Calcium (Crestor -) 20 mg PO HS [facility] Last Admin: 04/30/19 21:28 Dose: 20 mg - Objective Vital Signs: Vital Signs Temperature 97.7 F 05/01/19 05:00 Pulse Rate 82 05/01/19 05:00 Respiratory Rate 20 05/01/19 05:00 Blood Pressure 123/42 L 05/01/19 05:00 O2 Sat by Pulse Oximetry (%) 95 04/30/19 20:22 Constitutional: Yes: Moderate Distress Cardiovascular: Yes: Pulse Irregular Respiratory: Yes: Diminished, On Nasal O2 Gastrointestinal: Yes: Soft Genitourinary: Yes: Incontinence Musculoskeletal: Yes: Muscle Weakness Edema: No Integumentary: Yes: WNL Wound/Incision: Yes: Clean/Dry Neurological: Yes: Pre-Existing Deficit Psychiatric: Yes: Other (ANXIOUS) Labs: CBC, BMP 05/01/19 06:15 05/01/19 06:15 INR, PTT INR 1.40 (0.83-1.09) H 04/21/19 13:40 Problem List - Problems (1) CHF (congestive heart failure) Code(s): I50.9 - HEART FAILURE, UNSPECIFIED Qualifiers: Heart failure type: unspecified Heart failure chronicity: acute Qualified Code(s): I50.9 - Heart failure, unspecified (2) SOB (shortness of breath) Code(s): R06.02 - SHORTNESS OF BREATH (3) MURALI (acute kidney injury) Code(s): N17.9 - ACUTE KIDNEY FAILURE, UNSPECIFIED (4) Acute exacerbation of chronic obstructive pulmonary disease (COPD) Code(s): J44.1 - CHRONIC OBSTRUCTIVE PULMONARY DISEASE W (ACUTE) EXACERBATION (5) Arrhythmia Code(s): I49.9 - CARDIAC ARRHYTHMIA, UNSPECIFIED (6) Atrial fibrillation Code(s): I48.91 - UNSPECIFIED ATRIAL FIBRILLATION Qualifiers: Atrial fibrillation type: chronic (7) CAD S/P percutaneous coronary angioplasty Code(s): I25.10 - ATHSCL HEART DISEASE OF [place] CORONARY ARTERY W/O ANG PCTRS; Z98.61 - CORONARY ANGIOPLASTY STATUS (8) CHF exacerbation Code(s): I50.9 - HEART FAILURE, UNSPECIFIED Qualifiers: Heart failure type: unspecified Qualified Code(s): I50.9 - Heart failure, unspecified (9) Diabetes mellitus type 2, uncontrolled Code(s): E11.65 - TYPE 2 DIABETES MELLITUS WITH HYPERGLYCEMIA (10) Dyslipidemia Code(s): E78.5 - HYPERLIPIDEMIA, UNSPECIFIED (11) Mitral valve regurgitation Code(s): I34.0 - NONRHEUMATIC MITRAL (VALVE) INSUFFICIENCY Qualifiers: Cardiac valve disease etiology: etiology unspecified Qualified Code(s): I34.0 - Nonrheumatic mitral (valve) insufficiency (12) Pneumonia Code(s): J18.9 - PNEUMONIA, UNSPECIFIED ORGANISM Assessment/Plan SWITCHED TO BIPAP 100%/12 ABG IN 15 MINS PULM EVAL AT THIS POINT PATIENT IS NOT RESPONDING TO STEROIDS IV AND 02 SUPPORT. SHE WILL NEED A BIPAP AT ALL TIMES AND CAN TAKE OFF FOR MEALS. PALLIATIVE CARE CONSULT AND ADVANCED DIRECTIVES NEED TO BE D/W DAUGHTER. QUALITY OF LIFE IS POOR AND PATIENT IS UNABLE TO GET OUT OF BED AND AMBULATE. ON AC FOR AFIB CONTINUE
[2019-05-01] MEDS: ALBUTEROL SO4 2.5/IPRATROPIUM 0.5 INH SOL 3 ML VIAL.NEB. NEB SCH ×4 (08:43→20:37)
[2019-05-01] MEDS: FUROSEMIDE 40 MG TABLET (FP) PO SCH (09:22)
[2019-05-01] MEDS: ASPIRIN 81 MG CHEWABLE TABLETS PO SCH (09:22)
[2019-05-01] MEDS: PANTOPRAZOLE 40 MG TABLET PO SCH (09:22)
[2019-05-01] MEDS: methylPREDNISolone NA SUCC 40 MG/1 ML VIAL IVPUSH SCH ×2 (09:28→22:00)
[2019-05-01 09:43] LABS: ARTERIAL BLD GAS O2 SATURATION 98.5 % (95-98); ARTERIAL BLOOD GAS BASE EXCESS 11.5 meq/l (-2-2); ARTERIAL BLOOD GAS PCO2 46.5 mmHg (35-45); ARTERIAL BLOOD GAS PO2 109 mmHg (80-100)
[2019-05-01 09:46] LABS: ALLENS TEST POSITIVE
[2019-05-01] MEDS ORDERED: PT OWN MED DRAWER 7, Y5N ONE ×2 (10:18→21:28)
[2019-05-01] MEDS: DABIGATRAN ETEXILATE MESYLATE 75 MG CAPSULE PO SCH ×2 (10:43→22:00)
--- NOTE | 2019-05-01 13:04 | PN ---
Progress Note (short form) - Note Progress Note: Renal follow up for MURALI Seen and examined at the bedside awake and alert continues to have significant shortness of breath no orthopnea making urine Vital Signs Temperature 97.5 F L 05/01/19 08:48 Pulse Rate 95 H 05/01/19 08:48 Respiratory Rate 20 05/01/19 08:48 Blood Pressure 151/80 05/01/19 08:48 O2 Sat by Pulse Oximetry (%) 96 05/01/19 08:51 Intake & Output 04/28/19 04/29/19 04/30/19 05/01/19 23:59 23:59 23:59 23:59 Intake Total 044 736 5396 490 Balance 490 004 7071 490 Weight 54.34 kg 54.613 kg 55.066 kg NAD RRR Dec BS at bases, + rales mid lung soft NT/ND, no rebound or guarding no LE edema, clubbing or cyanosis no focal neurologic deficits CBC, BMP 05/01/19 06:15 05/01/19 06:15 Current Medications Acetaminophen (Tylenol -) 650 mg PO Q6H PRN PRN Reason: PAIN LEVEL 1-5 Albuterol Sulfate (Ventolin 0.042trength) -) 1 amp NEB Q4H PRN PRN Reason: SHORT OF BREATH/WHEEZING Last Admin: 05/01/19 03:25 Dose: 1 amp Albuterol/Ipratropium (Duoneb -) 1 amp NEB RQID [facility] Last Admin: 05/01/19 08:43 Dose: 1 amp Aspirin (Asa -) 81 mg PO DAILY [facility] Last Admin: 05/01/19 09:22 Dose: 81 mg Dabigatran (Pradaxa -) 75 mg PO BID [facility] Last Admin: 05/01/19 10:43 Dose: 75 mg Diazepam (Valium -) 2 mg PO Q12H PRN PRN Reason: ANXIETY Last Admin: 04/28/19 09:48 Dose: 2 mg Diltiazem HCl (Cardizem Cd -) 120 mg PO DAILY [facility] Last Admin: 05/01/19 09:22 Dose: 120 mg Docusate Sodium (Colace -) 100 mg PO BID PRN PRN Reason: CONSTIPATION Last Admin: 04/30/19 09:29 Dose: 100 mg Furosemide (Lasix -) 40 mg PO DAILY [facility] Last Admin: 05/01/19 09:22 Dose: 40 mg Glycerin (Glycerin Suppository Adult -) 1 each [place] DAILY PRN PRN Reason: CONSTIPATION Last Admin: 04/29/19 10:19 Dose: 1 each Piperacillin Sod/Tazobactam (Sod 2.25 gm/ Dextrose) 50 mls @ 100 mls/hr IVPB Q8H-IV [facility]; Protocol Last Admin: 05/01/19 09:20 Dose: 100 mls/hr Insulin Aspart (Novolog Vial Sliding Scale -) 1 vial SQ ACHS [facility]; Protocol Last Admin: 05/01/19 11:49 Dose: 5 units Insulin Detemir (Levemir Vial) 10 units SQ AM [facility] Last Admin: 05/01/19 06:09 Dose: 10 units Methylprednisolone Sodium Succinate (Solu-Medrol -) 30 mg IVPUSH BID [facility] Last Admin: 05/01/19 09:28 Dose: 30 mg Pantoprazole Sodium (Protonix -) 40 mg PO DAILY [facility] Last Admin: 05/01/19 09:22 Dose: 40 mg Rosuvastatin Calcium (Crestor -) 20 mg PO HS [facility] Last Admin: 04/30/19 21:28 Dose: 20 mg 84 year old woman with history of COPD, CHF, CAD, hypertension, MVR, DM and atrial fibrillation who presented with shortness of breath and and admitted for CHF exacerbation with MURALI. 1. Acute kidney injury in setting of CHF 2. CHF exacerbation 3. CAD 4. COPD 5. DM 6. Metabolic acidosis Renal function improved but not at baseline no evidence of obstruction on Renal US no overt electrolyte or acid/base disturbance at this time to warrant dialysis Urine studies show FeUrea of 42% indicative of some tubular injury Will give Lasix 40mg IV x 1 this afternoon for worsening congestion/SOB Would hold MANDY/ARB for now Trend renal function and electrolytes daily Trend Phos and Mg Urine eosinophils pending BUN is disproportionately elevated due to steroids and not a reflection of uremia. Trend serum bicarb Thank you Luis Orlando DO
--- NOTE | 2019-05-01 13:25 | PN ---
Progress Note (short form) - Note Progress Note: NAD on NC O2. Less SOB. No acute events overnight. CT: pulmonary vascular congestion / effusion / atelectasis Intake & Output 04/28/19 04/29/19 04/30/19 05/01/19 23:59 23:59 23:59 23:59 Intake Total 758 817 9477 490 Balance 264 996 4410 490 Weight 119 lb 12.8 oz 120 lb 6.4 oz 121 lb 6.4 oz Last Vital Signs Temp Pulse Resp BP Pulse Ox 97.5 F L 95 H 20 151/80 96 05/01/19 08:48 05/01/19 08:48 05/01/19 08:48 05/01/19 08:48 05/01/19 08:51 Active Medications Acetaminophen (Tylenol -) 650 mg PO Q6H PRN PRN Reason: PAIN LEVEL 1-5 Albuterol Sulfate (Ventolin 0.042trength) -) 1 amp NEB Q4H PRN PRN Reason: SHORT OF BREATH/WHEEZING Last Admin: 05/01/19 03:25 Dose: 1 amp Albuterol/Ipratropium (Duoneb -) 1 amp NEB RQID [facility] Last Admin: 05/01/19 08:43 Dose: 1 amp Aspirin (Asa -) 81 mg PO DAILY [facility] Last Admin: 05/01/19 09:22 Dose: 81 mg Dabigatran (Pradaxa -) 75 mg PO BID [facility] Last Admin: 05/01/19 10:43 Dose: 75 mg Diazepam (Valium -) 2 mg PO Q12H PRN PRN Reason: ANXIETY Last Admin: 04/28/19 09:48 Dose: 2 mg Diltiazem HCl (Cardizem Cd -) 120 mg PO DAILY [facility] Last Admin: 05/01/19 09:22 Dose: 120 mg Docusate Sodium (Colace -) 100 mg PO BID PRN PRN Reason: CONSTIPATION Last Admin: 04/30/19 09:29 Dose: 100 mg Furosemide (Lasix -) 40 mg PO DAILY [facility] Last Admin: 05/01/19 09:22 Dose: 40 mg Furosemide (Lasix Injection -) 40 mg IVPUSH ONCE ONE Stop: 05/01/19 14:01 Glycerin (Glycerin Suppository Adult -) 1 each [place] DAILY PRN PRN Reason: CONSTIPATION Last Admin: 04/29/19 10:19 Dose: 1 each Piperacillin Sod/Tazobactam (Sod 2.25 gm/ Dextrose) 50 mls @ 100 mls/hr IVPB Q8H-IV [facility]; Protocol Last Admin: 05/01/19 09:20 Dose: 100 mls/hr Insulin Aspart (Novolog Vial Sliding Scale -) 1 vial SQ ACHS [facility]; Protocol Last Admin: 05/01/19 11:49 Dose: 5 units Insulin Detemir (Levemir Vial) 10 units SQ AM [facility] Last Admin: 05/01/19 06:09 Dose: 10 units Methylprednisolone Sodium Succinate (Solu-Medrol -) 30 mg IVPUSH BID [facility] Last Admin: 05/01/19 09:28 Dose: 30 mg Pantoprazole Sodium (Protonix -) 40 mg PO DAILY [facility] Last Admin: 05/01/19 09:22 Dose: 40 mg Rosuvastatin Calcium (Crestor -) 20 mg PO HS [facility] Last Admin: 04/30/19 21:28 Dose: 20 mg Constitutional: Yes: NAD Eyes: Yes: WNL HENT: Yes: WNL Neck: Yes: WNL Cardiovascular: Yes: Pulse Irregular, S1, S2 Respiratory: Yes: Bibasilar rales/rhonchi, no wheezes Gastrointestinal: Yes: Normal Bowel Sounds, Soft Extremities: Yes: WNL Edema: No Labs: Laboratory Results - last 24 hr 04/30/19 04/30/19 05/01/19 17:07 21:26 05:16 WBC RBC Hgb Hct MCV MCH MCHC RDW Plt Count MPV Anticoagulation Therapy Puncture Site ABG pH ABG pCO2 at Pt Temp ABG pO2 at Pt Temp ABG HCO3 ABG O2 Sat (Measured) ABG O2 Content ABG Base Excess Ivan Test O2 Delivery Device Oxygen Flow Rate Vent Mode Vent Rate Mechanical Rate Pressure Support Vent Sodium Potassium Chloride Carbon Dioxide Anion Gap BUN Creatinine Est GFR (CKD-EPI)AfAm Est GFR (CKD-EPI)NonAf POC Glucometer 184 223 271 Random Glucose Calcium Magnesium Iron TIBC Iron Saturation Unsaturated IBC 05/01/19 05/01/19 05/01/19 06:15 06:15 09:01 WBC 6.5 RBC 3.43 L Hgb 10.4 L Hct 31.7 L MCV 92.5 MCH 30.4 MCHC 32.8 RDW 18.3 H Plt Count 221 MPV 9.5 Anticoagulation Therapy No Result Required. Puncture Site Right radial ABG pH 7.50 H ABG pCO2 at Pt Temp 46.5 H ABG pO2 at Pt Temp 109 H ABG HCO3 36.0 H ABG O2 Sat (Measured) 98.5 H ABG O2 Content 14.5 ABG Base Excess 11.5 H Ivan Test Positive O2 Delivery Device No Result Required. Oxygen Flow Rate Yes Vent Mode No Result Required. Vent Rate No Result Required. Mechanical Rate No Result Required. Pressure Support Vent No Result Required. Sodium 137 Potassium 3.9 Chloride 92 L Carbon Dioxide 37 H Anion Gap 7 L BUN 57.9 H Creatinine 1.6 H Est GFR (CKD-EPI)AfAm 33.47 Est GFR (CKD-EPI)NonAf 28.88 POC Glucometer Random Glucose 321 H Calcium 8.1 L Magnesium 2.6 H Iron 71 TIBC 215 L Iron Saturation 33 Unsaturated IBC 144 L 05/01/19 11:47 WBC RBC Hgb Hct MCV MCH MCHC RDW Plt Count MPV Anticoagulation Therapy Puncture Site ABG pH ABG pCO2 at Pt Temp ABG pO2 at Pt Temp ABG HCO3 ABG O2 Sat (Measured) ABG O2 Content ABG Base Excess Ivan Test O2 Delivery Device Oxygen Flow Rate Vent Mode Vent Rate Mechanical Rate Pressure Support Vent Sodium Potassium Chloride Carbon Dioxide Anion Gap BUN Creatinine Est GFR (CKD-EPI)AfAm Est GFR (CKD-EPI)NonAf POC Glucometer 276 Random Glucose Calcium Magnesium Iron TIBC Iron Saturation Unsaturated IBC - ....Imaging Chest X-ray: Report Reviewed, Image Reviewed Problem List - Problems (1) Acute on chronic respiratory failure with hypoxia and hypercapnia Code(s): J96.21 - ACUTE AND CHRONIC RESPIRATORY FAILURE WITH HYPOXIA; J96.22 - ACUTE AND CHRONIC RESPIRATORY FAILURE WITH HYPERCAPNIA (2) SOB (shortness of breath) Code(s): R06.02 - SHORTNESS OF BREATH (3) MURALI (acute kidney injury) Code(s): N17.9 - ACUTE KIDNEY FAILURE, UNSPECIFIED (4) Atrial fibrillation Code(s): I48.91 - UNSPECIFIED ATRIAL FIBRILLATION Qualifiers: Atrial fibrillation type: chronic (5) CAD S/P percutaneous coronary angioplasty Code(s): I25.10 - ATHSCL HEART DISEASE OF [place] CORONARY ARTERY W/O ANG PCTRS; Z98.61 - CORONARY ANGIOPLASTY STATUS (6) CHF exacerbation Code(s): I50.9 - HEART FAILURE, UNSPECIFIED Qualifiers: Heart failure type: unspecified Qualified Code(s): I50.9 - Heart failure, unspecified (7) Diabetes Code(s): E11.9 - TYPE 2 DIABETES MELLITUS WITHOUT COMPLICATIONS Qualifiers: Diabetes mellitus type: other specified (including YULISA) Diabetes mellitus longterm insulin use: with termination clerk use Diabetes mellitus complication status: with unspecified complications (8) Dyslipidemia Code(s): E78.5 - HYPERLIPIDEMIA, UNSPECIFIED (9) Mitral valve regurgitation Code(s): I34.0 - NONRHEUMATIC MITRAL (VALVE) INSUFFICIENCY Qualifiers: Cardiac valve disease etiology: etiology unspecified Qualified Code(s): I34.0 - Nonrheumatic mitral (valve) insufficiency (10) Troponin I above reference range Code(s): R79.89 - OTHER SPECIFIED ABNORMAL FINDINGS OF BLOOD CHEMISTRY (11) Aortic stenosis Code(s): I35.0 - NONRHEUMATIC AORTIC (VALVE) STENOSIS Assessment/Plan IMP ACUTE ON CHRONIC HYPOXEMIC/HYPERCAPNEIC RESPIRATORY FAILURE IMPROVING COPD EXACERBATION IMPROVING CHF AFIB ASHD S/P STENT SEVERE PULMONARY HTN 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 ATELECTASIS PLAN MEDROL: WILL LIKELY CHANGE TO PREDNISONE IN AM LASIX INHALED BRONCHODILATORS SUPPLEMENTAL O2 DC NIPPV MONITOR LYTES,BUN,CREATININE DR AU
--- NOTE | 2019-05-01 13:53 | PN ---
Progress Note, Physician Chief Complaint: The patient complains SOB with venti mask. No chest pain or SOB. Tele shows atrial fibrillation with controlled VR. History of Present Illness: 84 year-old woman with a PMHx of long standing persistent atrial fibrillation, CAD s/p previous stents and last cath in 2017 showed patent vessels, recent stress test showed fixed defects and no ischemia, syncope, NSVT, post ILR placement, chronic diastolic CHF, severe pulm HTN and chronic TP elevation SOB is multifactorial component of CHF but currently more c/w COPD and ILD exacerbation. - Current Medication List Current Medications: Active Medications Acetaminophen (Tylenol -) 650 mg PO Q6H PRN PRN Reason: PAIN LEVEL 1-5 Albuterol Sulfate (Ventolin 0.042trength) -) 1 amp NEB Q4H PRN PRN Reason: SHORT OF BREATH/WHEEZING Last Admin: 05/01/19 03:25 Dose: 1 amp Albuterol/Ipratropium (Duoneb -) 1 amp NEB RQID [facility] Last Admin: 05/01/19 08:43 Dose: 1 amp Aspirin (Asa -) 81 mg PO DAILY [facility] Last Admin: 05/01/19 09:22 Dose: 81 mg Dabigatran (Pradaxa -) 75 mg PO BID [facility] Last Admin: 05/01/19 10:43 Dose: 75 mg Diazepam (Valium -) 2 mg PO Q12H PRN PRN Reason: ANXIETY Last Admin: 04/28/19 09:48 Dose: 2 mg Diltiazem HCl (Cardizem Cd -) 120 mg PO DAILY [facility] Last Admin: 05/01/19 09:22 Dose: 120 mg Docusate Sodium (Colace -) 100 mg PO BID PRN PRN Reason: CONSTIPATION Last Admin: 04/30/19 09:29 Dose: 100 mg Furosemide (Lasix -) 40 mg PO DAILY [facility] Last Admin: 05/01/19 09:22 Dose: 40 mg Furosemide (Lasix Injection -) 40 mg IVPUSH ONCE ONE Stop: 05/01/19 14:01 Glycerin (Glycerin Suppository Adult -) 1 each [place] DAILY PRN PRN Reason: CONSTIPATION Last Admin: 04/29/19 10:19 Dose: 1 each Piperacillin Sod/Tazobactam (Sod 2.25 gm/ Dextrose) 50 mls @ 100 mls/hr IVPB Q8H-IV [facility]; Protocol Last Admin: 05/01/19 09:20 Dose: 100 mls/hr Insulin Aspart (Novolog Vial Sliding Scale -) 1 vial SQ ACHS [facility]; Protocol Last Admin: 05/01/19 11:49 Dose: 5 units Insulin Detemir (Levemir Vial) 10 units SQ AM [facility] Last Admin: 05/01/19 06:09 Dose: 10 units Methylprednisolone Sodium Succinate (Solu-Medrol -) 30 mg IVPUSH BID [facility] Last Admin: 05/01/19 09:28 Dose: 30 mg Pantoprazole Sodium (Protonix -) 40 mg PO DAILY [facility] Last Admin: 05/01/19 09:22 Dose: 40 mg Rosuvastatin Calcium (Crestor -) 20 mg PO HS [facility] Last Admin: 04/30/19 21:28 Dose: 20 mg - Objective Vital Signs: Vital Signs Temperature 97.5 F L 05/01/19 08:48 Pulse Rate 95 H 05/01/19 08:48 Respiratory Rate 20 05/01/19 08:48 Blood Pressure 151/80 05/01/19 08:48 O2 Sat by Pulse Oximetry (%) 96 05/01/19 08:51 General: Well developed. Chronic ill and frail. No acute distress. Head: Normocephalic. Atraumatic, Eyes: PERRLA, EOMI. Sclerae anicteric. Conjunctivae clear. Neck: Supple. No JVD. No bruits. Heart: Normal S1, S2: Irregular rhythm and rate. II/ ADAM with reduced A2. Lungs: Symmetrical poor air entry. Clear to auscultation. Abdomen: Soft. Bowel sound positive. Non tender. No masses. Extremities: No edema. No clubbing or cyanosis. PD 2+, equal bilaterally. Neuro: Intact, no focal findings. AAO X3. Labs: CBC, BMP 05/01/19 06:15 05/01/19 06:15 INR, PTT INR 1.40 (0.83-1.09) H 04/21/19 13:40 Assessment/Plan 84 year-old woman with a PMHx of long standing persistent atrial fibrillation, CAD s/p previous stents and last cath in 2017 showed patent vessels, recent stress test showed fixed defects and no ischemia, syncope, NSVT, post ILR placement, chronic diastolic CHF, severe pulm HTN and chronic TP elevation SOB is multifactorial component of CHF but currently more c/w COPD and ILD exacerbation. 1. CAD Stable Has chronic TP elevation unchanged from prior. No myocardial ischemia. 2. CHF Acute diastolic CHF, ho mitral regurgitation and mild-moderate Aortic stenosis. Volume stable on PO furosemide Monitor weight and strict I/Os monitor blood work bun/creat, electrolytes and replete as needed 3. Afib HR controlled and no significant pauses noted Continue with diltiazem. Continue pradaxa 4. NSVT No further long runs of nsvt occasional 3 beats of NSVT with ichemic heart disease. Not on BB due to severity of lung disease. Monitor electrolytes daily. keep K>4, Mg >2 Has a senior care loop recorder
[2019-05-01] MEDS ORDERED: FUROSEMIDE 40 MG/4 ML INJECTABLE VIAL IVPUSH ONE (14:00)
[2019-05-01] MEDS: ROSUVASTATIN CA 20 MG TABLET (FP) PO SCH (22:00)
[2019-05-02] MEDS: PIPERACILLIN/TAZOB 2.25 GM 2.25 GM in DEXTROSE 5%-WATER - 50 ML IVPB SCH ×3 (03:00→17:18)
[2019-05-02] MEDS: INSULIN SLIDING SCALE (NOVOLOG) 1 VIAL SQ SCH ×4 (06:45→23:19)
[2019-05-02] MEDS: INSULIN (LEVEMIR) 100 UNITS/ML UNITS SQ SCH (06:46)
[2019-05-02] MEDS ORDERED: INSULIN (NOVOLOG) ASPART 100 UNITS/ML 10ML VIAL ONE ×2 (06:55→10:58)
--- NOTE | 2019-05-02 07:25 | PN ---
Progress Note, Physician - Current Medication List Current Medications: Active Medications Acetaminophen (Tylenol -) 650 mg PO Q6H PRN PRN Reason: PAIN LEVEL 1-5 Albuterol Sulfate (Ventolin 0.042trength) -) 1 amp NEB Q4H PRN PRN Reason: SHORT OF BREATH/WHEEZING Last Admin: 05/01/19 03:25 Dose: 1 amp Albuterol/Ipratropium (Duoneb -) 1 amp NEB RQID [facility] Last Admin: 05/01/19 20:37 Dose: 1 amp Aspirin (Asa -) 81 mg PO DAILY [facility] Last Admin: 05/01/19 09:22 Dose: 81 mg Dabigatran (Pradaxa -) 75 mg PO BID [facility] Last Admin: 05/01/19 22:00 Dose: 75 mg Diazepam (Valium -) 2 mg PO Q12H PRN PRN Reason: ANXIETY Last Admin: 04/28/19 09:48 Dose: 2 mg Diltiazem HCl (Cardizem Cd -) 120 mg PO DAILY [facility] Last Admin: 05/01/19 09:22 Dose: 120 mg Docusate Sodium (Colace -) 100 mg PO BID PRN PRN Reason: CONSTIPATION Last Admin: 04/30/19 09:29 Dose: 100 mg Furosemide (Lasix -) 40 mg PO DAILY [facility] Last Admin: 05/01/19 09:22 Dose: 40 mg Glycerin (Glycerin Suppository Adult -) 1 each [place] DAILY PRN PRN Reason: CONSTIPATION Last Admin: 04/29/19 10:19 Dose: 1 each Piperacillin Sod/Tazobactam (Sod 2.25 gm/ Dextrose) 50 mls @ 100 mls/hr IVPB Q8H-IV [facility]; Protocol Last Admin: 05/02/19 03:00 Dose: 100 mls/hr Insulin Aspart (Novolog Vial Sliding Scale -) 1 vial SQ ACHS [facility]; Protocol Last Admin: 05/02/19 06:45 Dose: 5 units Insulin Detemir (Levemir Vial) 10 units SQ AM [facility] Last Admin: 05/02/19 06:46 Dose: 10 units Methylprednisolone Sodium Succinate (Solu-Medrol -) 30 mg IVPUSH BID [facility] Last Admin: 05/01/19 22:00 Dose: 30 mg Pantoprazole Sodium (Protonix -) 40 mg PO DAILY [facility] Last Admin: 05/01/19 09:22 Dose: 40 mg Rosuvastatin Calcium (Crestor -) 20 mg PO HS [facility] Last Admin: 05/01/19 22:00 Dose: 20 mg - Objective Vital Signs: Vital Signs Temperature 97.8 F 05/02/19 06:00 Pulse Rate 79 05/02/19 06:00 Respiratory Rate 20 05/02/19 06:00 Blood Pressure 145/71 05/02/19 06:00 O2 Sat by Pulse Oximetry (%) 100 05/01/19 22:00 Cardiovascular: Yes: S1, S2 Respiratory: Yes: Diminished, On Venti-Mask, Rhonchi Gastrointestinal: Yes: Normal Bowel Sounds, Soft Labs: CBC, BMP 05/01/19 06:15 05/01/19 06:15 INR, PTT INR 1.40 (0.83-1.09) H 04/21/19 13:40 Assessment/Plan - Problems (1) Acute on chronic respiratory failure with hypoxia and hypercapnia Assessment/Plan: Pulmonary on board Bipap HS and prn O2 via NC if tolerated keep Spo2 >90% bronchodilators IV Medrol--TID==PO PREDNISONE CXR shows no acute pathology Code(s): J96.21 - ACUTE AND CHRONIC RESPIRATORY FAILURE WITH HYPOXIA; J96.22 - ACUTE AND CHRONIC RESPIRATORY FAILURE WITH HYPERCAPNIA (2) CHF (congestive heart failure) Assessment/Plan: Pulmonary and Cardiology on board Furosemide po strict I&O low Na diet fluid restriction Code(s): I50.9 - HEART FAILURE, UNSPECIFIED Qualifiers: Heart failure type: unspecified Heart failure chronicity: acute Qualified Code(s): I50.9 - Heart failure, unspecified (3) SOB (shortness of breath) Assessment/Plan: Pulmonary on board Bipap HS and prn O2 via NC if tolerated keep Spo2 >90% bronchodilators IV Medrol CXR shows no acute pathology Code(s): R06.02 - SHORTNESS OF BREATH (4) Acute exacerbation of chronic obstructive pulmonary disease (COPD) Assessment/Plan: Pulmonary on board Bipap HS and prn O2 via NC if tolerated keep Spo2 >90% bronchodilators IV Medrol CXR shows no acute pathology Code(s): J44.1 - CHRONIC OBSTRUCTIVE PULMONARY DISEASE W (ACUTE) EXACERBATION (5) Atrial fibrillation Assessment/Plan: Pradaxa Cardizem for rate control Tele Monitoring Cardiology on board Code(s): I48.91 - UNSPECIFIED ATRIAL FIBRILLATION Qualifiers: Atrial fibrillation type: chronic (6) CKD (chronic kidney disease) Assessment/Plan: Renal on board BUN/Cr 97.8/2.3 monitor renal function daily being that patient is on Furosemide Code(s): N18.9 - CHRONIC KIDNEY DISEASE, UNSPECIFIED (7) Diabetes mellitus type 2, uncontrolled Assessment/Plan: [facility] Levemir diabetic diet Code(s): E11.65 - TYPE 2 DIABETES MELLITUS WITH HYPERGLYCEMIA (8) Dyslipidemia Assessment/Plan: Crestor Code(s): E78.5 - HYPERLIPIDEMIA, UNSPECIFIED (9) HTN (hypertension) Assessment/Plan: monitor BP Cardizem Code(s): I10 - ESSENTIAL (PRIMARY) HYPERTENSION Qualifiers: Hypertension type: essential hypertension Qualified Code(s): I10 - Essential (primary) hypertension
[2019-05-02] MEDS: ALBUTEROL SO4 2.5/IPRATROPIUM 0.5 INH SOL 3 ML VIAL.NEB. NEB SCH ×4 (07:39→21:20)
[2019-05-02] MEDS ORDERED: PIPERACILLIN/TAZOBACTAM 2.25 GM VIAL IVPB ONE ×2 (08:49→16:04)
[2019-05-02] MEDS ORDERED: DEXTROSE 5%-WATER - 50 ML IVPB ONE ×2 (08:49→16:05)
[2019-05-02] MEDS: FUROSEMIDE 40 MG TABLET (FP) PO SCH (09:29)
[2019-05-02] MEDS: ASPIRIN 81 MG CHEWABLE TABLETS PO SCH (09:29)
[2019-05-02] MEDS: DABIGATRAN ETEXILATE MESYLATE 75 MG CAPSULE PO SCH ×2 (09:29→23:14)
[2019-05-02] MEDS: PANTOPRAZOLE 40 MG TABLET PO SCH (09:29)
[2019-05-02] MEDS: predniSONE 10 MG TABLET (UD) PO SCH ×2 (09:34→23:14)
--- NOTE | 2019-05-02 11:10 | PN ---
Progress Note, Physician History of Present Illness: seen and examined today. coughing. less sob. no overnight events or new complaints. - Current Medication List Current Medications: Active Medications Acetaminophen (Tylenol -) 650 mg PO Q6H PRN PRN Reason: PAIN LEVEL 1-5 Albuterol Sulfate (Ventolin 0.042trength) -) 1 amp NEB Q4H PRN PRN Reason: SHORT OF BREATH/WHEEZING Last Admin: 05/01/19 03:25 Dose: 1 amp Albuterol/Ipratropium (Duoneb -) 1 amp NEB RQID [facility] Last Admin: 05/01/19 20:37 Dose: 1 amp Aspirin (Asa -) 81 mg PO DAILY [facility] Last Admin: 05/02/19 09:29 Dose: 81 mg Dabigatran (Pradaxa -) 75 mg PO BID [facility] Last Admin: 05/02/19 09:29 Dose: 75 mg Diazepam (Valium -) 2 mg PO Q12H PRN PRN Reason: ANXIETY Last Admin: 04/28/19 09:48 Dose: 2 mg Diltiazem HCl (Cardizem Cd -) 120 mg PO DAILY [facility] Last Admin: 05/02/19 09:29 Dose: 120 mg Docusate Sodium (Colace -) 100 mg PO BID PRN PRN Reason: CONSTIPATION Last Admin: 04/30/19 09:29 Dose: 100 mg Furosemide (Lasix -) 40 mg PO DAILY [facility] Last Admin: 05/02/19 09:29 Dose: 40 mg Glycerin (Glycerin Suppository Adult -) 1 each [place] DAILY PRN PRN Reason: CONSTIPATION Last Admin: 04/29/19 10:19 Dose: 1 each Piperacillin Sod/Tazobactam (Sod 2.25 gm/ Dextrose) 50 mls @ 100 mls/hr IVPB Q8H-IV [facility]; Protocol Last Admin: 05/02/19 09:29 Dose: 100 mls/hr Insulin Aspart (Novolog Vial Sliding Scale -) 1 vial SQ ACHS [facility]; Protocol Last Admin: 05/02/19 10:56 Dose: 2 units Insulin Detemir (Levemir Vial) 10 units SQ AM [facility] Last Admin: 05/02/19 06:46 Dose: 10 units Pantoprazole Sodium (Protonix -) 40 mg PO DAILY [facility] Last Admin: 05/02/19 09:29 Dose: 40 mg Prednisone (Deltasone -) 30 mg PO BID [facility] Last Admin: 05/02/19 09:34 Dose: 30 mg Rosuvastatin Calcium (Crestor -) 20 mg PO HS [facility] Last Admin: 05/01/19 22:00 Dose: 20 mg - Objective Vital Signs: Vital Signs Temperature 97.8 F 05/02/19 08:02 Pulse Rate 80 05/02/19 08:02 Respiratory Rate 20 05/02/19 08:02 Blood Pressure 130/70 05/02/19 08:02 O2 Sat by Pulse Oximetry (%) 100 05/02/19 08:02 Constitutional: Yes: No Distress, Calm Eyes: Yes: Other (R eye patch in place) Neck: Yes: Supple, Trachea Midline Cardiovascular: Yes: Pulse Irregular, Murmur, S1, S2. No: Regular Rate and Rhythm, Bradycardia, Tachycardia, Bruit, JVD, Gallop, Rub, S3, S4, Varicosities Respiratory: Yes: Regular, Cough, Diminished, On Venti-Mask, Rales, Rhonchi. No : SOB, Wheezes Gastrointestinal: Yes: Normal Bowel Sounds, Soft. No: Distention, Tenderness Musculoskeletal: Yes: WNL Extremities: Yes: WNL Edema: No Peripheral Pulses WNL: Yes Peripheral Pulses: Left Doralis Pedis: 2+, Right Dorsalis Pedis: 2+ Neurological: Yes: Alert, Oriented Psychiatric: Yes: Alert, Oriented Labs: CBC, BMP 05/01/19 06:15 05/01/19 06:15 INR, PTT INR 1.40 (0.83-1.09) H 04/21/19 13:40 - ....Imaging Chest X-ray: Report Reviewed, Image Reviewed EKG: Report Reviewed, Image Reviewed Other: Report Reviewed, Image Reviewed (tele-afib, hr adequately controlled) Assessment/Plan 84 year-old woman with a PMHx of long standing persistent atrial fibrillation, CAD s/p previous stents and last cath in 2017 showed patent vessels, recent stress test showed fixed defects and no ischemia, syncope, NSVT, post ILR placement, chronic diastolic CHF, severe pulm HTN and chronic TP elevation SOB is multifactorial component of CHF but currently more c/w COPD and ILD exacerbation. 1. CAD Stable Has chronic TP elevation unchanged from prior. No myocardial ischemia. 2. CHF Acute diastolic CHF, ho mitral regurgitation and mild-moderate Aortic stenosis. Volume stable on PO furosemide Monitor weight and strict I/Os monitor blood work bun/creat, electrolytes and replete as needed 3. Afib HR controlled and no significant pauses noted Continue with diltiazem. Continue pradaxa 4. NSVT No further long runs of nsvt occasional 3 beats of NSVT with ichemic heart disease. Not on BB due to severity of lung disease. Monitor electrolytes daily. keep K>4, Mg >2 Has a half-way loop recorder
--- NOTE | 2019-05-02 11:31 | PN ---
Progress Note, Physician History of Present Illness: PULMONARY ALERT,LESS DYSPNEIC ON NASAL CANNULA - Current Medication List Current Medications: Active Medications Acetaminophen (Tylenol -) 650 mg PO Q6H PRN PRN Reason: PAIN LEVEL 1-5 Albuterol Sulfate (Ventolin 0.042trength) -) 1 amp NEB Q4H PRN PRN Reason: SHORT OF BREATH/WHEEZING Last Admin: 05/01/19 03:25 Dose: 1 amp Albuterol/Ipratropium (Duoneb -) 1 amp NEB RQID [facility] Last Admin: 05/01/19 20:37 Dose: 1 amp Aspirin (Asa -) 81 mg PO DAILY [facility] Last Admin: 05/02/19 09:29 Dose: 81 mg Dabigatran (Pradaxa -) 75 mg PO BID [facility] Last Admin: 05/02/19 09:29 Dose: 75 mg Diazepam (Valium -) 2 mg PO Q12H PRN PRN Reason: ANXIETY Last Admin: 04/28/19 09:48 Dose: 2 mg Diltiazem HCl (Cardizem Cd -) 120 mg PO DAILY [facility] Last Admin: 05/02/19 09:29 Dose: 120 mg Docusate Sodium (Colace -) 100 mg PO BID PRN PRN Reason: CONSTIPATION Last Admin: 04/30/19 09:29 Dose: 100 mg Furosemide (Lasix -) 40 mg PO DAILY [facility] Last Admin: 05/02/19 09:29 Dose: 40 mg Glycerin (Glycerin Suppository Adult -) 1 each [place] DAILY PRN PRN Reason: CONSTIPATION Last Admin: 04/29/19 10:19 Dose: 1 each Piperacillin Sod/Tazobactam (Sod 2.25 gm/ Dextrose) 50 mls @ 100 mls/hr IVPB Q8H-IV [facility]; Protocol Last Admin: 05/02/19 09:29 Dose: 100 mls/hr Insulin Aspart (Novolog Vial Sliding Scale -) 1 vial SQ ACHS [facility]; Protocol Last Admin: 05/02/19 10:56 Dose: 2 units Insulin Detemir (Levemir Vial) 10 units SQ AM [facility] Last Admin: 05/02/19 06:46 Dose: 10 units Pantoprazole Sodium (Protonix -) 40 mg PO DAILY [facility] Last Admin: 05/02/19 09:29 Dose: 40 mg Prednisone (Deltasone -) 30 mg PO BID [facility] Last Admin: 05/02/19 09:34 Dose: 30 mg Rosuvastatin Calcium (Crestor -) 20 mg PO HS [facility] Last Admin: 05/01/19 22:00 Dose: 20 mg - Objective Vital Signs: Vital Signs Temperature 97.8 F 05/02/19 08:02 Pulse Rate 80 05/02/19 08:02 Respiratory Rate 20 05/02/19 08:02 Blood Pressure 130/70 05/02/19 08:02 O2 Sat by Pulse Oximetry (%) 100 05/02/19 08:02 Constitutional: Yes: Calm, Thin Eyes: Yes: WNL HENT: Yes: WNL Neck: Yes: WNL Cardiovascular: Yes: Pulse Irregular, S1, S2 Respiratory: Yes: Rales (SCATTERED OLIVER RALES,RHONCHI) Gastrointestinal: Yes: Normal Bowel Sounds, Soft Extremities: Yes: WNL Edema: No Labs: CBC, BMP 05/01/19 06:15 05/01/19 06:15 INR, PTT INR 1.40 (0.83-1.09) H 04/21/19 13:40 Problem List - Problems (1) Acute on chronic respiratory failure with hypoxia and hypercapnia Code(s): J96.21 - ACUTE AND CHRONIC RESPIRATORY FAILURE WITH HYPOXIA; J96.22 - ACUTE AND CHRONIC RESPIRATORY FAILURE WITH HYPERCAPNIA (2) SOB (shortness of breath) Code(s): R06.02 - SHORTNESS OF BREATH (3) MURALI (acute kidney injury) Code(s): N17.9 - ACUTE KIDNEY FAILURE, UNSPECIFIED (4) Atrial fibrillation Code(s): I48.91 - UNSPECIFIED ATRIAL FIBRILLATION Qualifiers: Atrial fibrillation type: chronic (5) CAD S/P percutaneous coronary angioplasty Code(s): I25.10 - ATHSCL HEART DISEASE OF [place] CORONARY ARTERY W/O ANG PCTRS; Z98.61 - CORONARY ANGIOPLASTY STATUS (6) CHF exacerbation Code(s): I50.9 - HEART FAILURE, UNSPECIFIED Qualifiers: Heart failure type: unspecified Qualified Code(s): I50.9 - Heart failure, unspecified (7) Diabetes Code(s): E11.9 - TYPE 2 DIABETES MELLITUS WITHOUT COMPLICATIONS Qualifiers: Diabetes mellitus type: other specified (including YULISA) Diabetes mellitus penitentiary insulin use: with penitentiary use Diabetes mellitus complication status: with unspecified complications (8) Dyslipidemia Code(s): E78.5 - HYPERLIPIDEMIA, UNSPECIFIED (9) Mitral valve regurgitation Code(s): I34.0 - NONRHEUMATIC MITRAL (VALVE) INSUFFICIENCY Qualifiers: Cardiac valve disease etiology: etiology unspecified Qualified Code(s): I34.0 - Nonrheumatic mitral (valve) insufficiency (10) Troponin I above reference range Code(s): R79.89 - OTHER SPECIFIED ABNORMAL FINDINGS OF BLOOD CHEMISTRY (11) Aortic stenosis Code(s): I35.0 - NONRHEUMATIC AORTIC (VALVE) STENOSIS Assessment/Plan IMP ACUTE ON CHRONIC HYPOXEMIC/HYPERCAPNEIC RESPIRATORY FAILURE COPD EXACERBATION CHF AFIB ASHD S/P STENT SEVERE PULMONARY HTN 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 PLAN MEDROL LASIX INHALED BRONCHODILATORS SUPPLEMENTAL O2 NIPPV NEEDED MONITOR LYTES,BUN,CREATININE DR LORA Problem List - Problems (1) Acute on chronic respiratory failure with hypoxia and hypercapnia Code(s): J96.21 - ACUTE AND CHRONIC RESPIRATORY FAILURE WITH HYPOXIA; J96.22 - ACUTE AND CHRONIC RESPIRATORY FAILURE WITH HYPERCAPNIA (2) SOB (shortness of breath) Code(s): R06.02 - SHORTNESS OF BREATH (3) MURALI (acute kidney injury) Code(s): N17.9 - ACUTE KIDNEY FAILURE, UNSPECIFIED (4) Atrial fibrillation Code(s): I48.91 - UNSPECIFIED ATRIAL FIBRILLATION Qualifiers: Atrial fibrillation type: chronic (5) CAD S/P percutaneous coronary angioplasty Code(s): I25.10 - ATHSCL HEART DISEASE OF [place] CORONARY ARTERY W/O ANG PCTRS; Z98.61 - CORONARY ANGIOPLASTY STATUS (6) CHF exacerbation Code(s): I50.9 - HEART FAILURE, UNSPECIFIED Qualifiers: Heart failure type: unspecified Qualified Code(s): I50.9 - Heart failure, unspecified (7) Diabetes Code(s): E11.9 - TYPE 2 DIABETES MELLITUS WITHOUT COMPLICATIONS Qualifiers: Diabetes mellitus type: other specified (including YULISA) Diabetes mellitus 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
--- NOTE | 2019-05-02 11:53 | PN ---
Progress Note (short form) - Note Progress Note: Renal follow up for MURALI Seen and examined at the bedside awake and alert feels better then yesterday reports increased urine output and imporvement in sob s/p IV lasix yesterday afternoon no chest pain, fever, chills, N/V/D Vital Signs Temperature 97.8 F 05/02/19 08:02 Pulse Rate 80 05/02/19 08:02 Respiratory Rate 20 05/02/19 08:02 Blood Pressure 130/70 05/02/19 08:02 O2 Sat by Pulse Oximetry (%) 100 05/02/19 08:02 Intake & Output 04/29/19 04/30/19 05/01/19 05/02/19 23:59 23:59 23:59 23:59 Intake Total 300 1160 1390 70 Balance 300 1160 1390 70 Weight 54.613 kg 55.066 kg 54.703 kg NAD RRR Dec BS at bases no rales soft NT/ND, no rebound or guarding no LE edema, clubbing or cyanosis no focal neurologic deficits CBC, BMP 05/01/19 06:15 05/01/19 06:15 Current Medications Acetaminophen (Tylenol -) 650 mg PO Q6H PRN PRN Reason: PAIN LEVEL 1-5 Albuterol Sulfate (Ventolin 0.042trength) -) 1 amp NEB Q4H PRN PRN Reason: SHORT OF BREATH/WHEEZING Last Admin: 05/01/19 03:25 Dose: 1 amp Albuterol/Ipratropium (Duoneb -) 1 amp NEB RQID [facility] Last Admin: 05/02/19 11:40 Dose: 1 amp Aspirin (Asa -) 81 mg PO DAILY [facility] Last Admin: 05/02/19 09:29 Dose: 81 mg Dabigatran (Pradaxa -) 75 mg PO BID [facility] Last Admin: 05/02/19 09:29 Dose: 75 mg Diazepam (Valium -) 2 mg PO Q12H PRN PRN Reason: ANXIETY Last Admin: 04/28/19 09:48 Dose: 2 mg Diltiazem HCl (Cardizem Cd -) 120 mg PO DAILY [facility] Last Admin: 05/02/19 09:29 Dose: 120 mg Docusate Sodium (Colace -) 100 mg PO BID PRN PRN Reason: CONSTIPATION Last Admin: 04/30/19 09:29 Dose: 100 mg Furosemide (Lasix -) 40 mg PO DAILY [facility] Last Admin: 05/02/19 09:29 Dose: 40 mg Glycerin (Glycerin Suppository Adult -) 1 each [place] DAILY PRN PRN Reason: CONSTIPATION Last Admin: 04/29/19 10:19 Dose: 1 each Piperacillin Sod/Tazobactam (Sod 2.25 gm/ Dextrose) 50 mls @ 100 mls/hr IVPB Q8H-IV [facility]; Protocol Last Admin: 05/02/19 09:29 Dose: 100 mls/hr Insulin Aspart (Novolog Vial Sliding Scale -) 1 vial SQ ACHS [facility]; Protocol Last Admin: 05/02/19 10:56 Dose: 2 units Insulin Detemir (Levemir Vial) 10 units SQ AM [facility] Last Admin: 05/02/19 06:46 Dose: 10 units Pantoprazole Sodium (Protonix -) 40 mg PO DAILY [facility] Last Admin: 05/02/19 09:29 Dose: 40 mg Prednisone (Deltasone -) 30 mg PO BID [facility] Last Admin: 05/02/19 09:34 Dose: 30 mg Rosuvastatin Calcium (Crestor -) 20 mg PO HS [facility] Last Admin: 05/01/19 22:00 Dose: 20 mg 84 year old woman with history of COPD, CHF, CAD, hypertension, MVR, DM and atrial fibrillation who presented with shortness of breath and and admitted for CHF exacerbation with MURALI. 1. Acute kidney injury in setting of CHF 2. CHF exacerbation 3. CAD 4. COPD 5. DM 6. Metabolic acidosis todays chemistries not reported yet Renal function stable as of yesteray no evidence of obstruction on Renal US no overt electrolyte or acid/base disturbance at this time to warrant dialysis Urine studies show FeUrea of 42% indicative of some tubular injury Clinically improved s/p IV Lasix x 1 yesterday. Could consider increased oral dose or BID dosing. Would hold MANDY/ARB for now Trend renal function and electrolytes daily Trend Phos and Mg BUN is disproportionately elevated due to steroids and not a reflection of uremia. Trend serum bicarb Thank you Luis Orlando DO
[2019-05-02 13:30] LABS: CALCIUM 8.7 mg/dL (8.5-10.1); CREATININE 1.6 mg/dL (0.55-1.3); POTASSIUM 3.7 mmol/L (3.5-5.1)
[2019-05-02] MEDS: ROSUVASTATIN CA 20 MG TABLET (FP) PO SCH (23:14)
[2019-05-03] MEDS: PIPERACILLIN/TAZOB 2.25 GM 2.25 GM in DEXTROSE 5%-WATER - 50 ML IVPB SCH ×2 (03:15→09:38)
[2019-05-03] MEDS: INSULIN (LEVEMIR) 100 UNITS/ML UNITS SQ SCH (06:09)
[2019-05-03] MEDS: INSULIN SLIDING SCALE (NOVOLOG) 1 VIAL SQ SCH ×3 (06:09→17:05)
[2019-05-03] MEDS: ALBUTEROL SO4 2.5/IPRATROPIUM 0.5 INH SOL 3 ML VIAL.NEB. NEB SCH ×3 (07:54→16:55)
[2019-05-03 08:31] LABS: BLOOD UREA NITROGEN 48.5 mg/dL (7-18); CALCIUM 8.6 mg/dL (8.5-10.1); CREATININE 1.3 mg/dL (0.55-1.3); MAGNESIUM 2.6 mg/dL (1.8-2.4); POTASSIUM 3.4 mmol/L (3.5-5.1)
[2019-05-03] MEDS ORDERED: POTASSIUM CHLORIDE TABS 10 MEQ TABLET.ER (FP) PO ONE (08:42)
--- NOTE | 2019-05-03 08:56 | DS ---
Physical Examination Vital Signs: Vital Signs Temperature 97.9 F 05/03/19 08:25 Pulse Rate 72 05/03/19 08:25 Respiratory Rate 20 05/03/19 08:27 Blood Pressure 132/68 05/03/19 08:25 O2 Sat by Pulse Oximetry (%) 100 05/02/19 21:00 Findings/Remarks: STABLE, ON 02 SUPPORT ON PO MEDS Cardiovascular: Yes: Pulse Irregular Respiratory: Yes: Diminished, On BiPap, On Nasal O2 Gastrointestinal: Yes: Soft Renal/: Yes: Incontinence Musculoskeletal: Yes: Muscle Weakness Edema: Yes Edema: LLE: Trace, RLE: Trace Neurological: Yes: Pre-Existing Deficit ...Motor Strength: LLE, RLE Psychiatric: Yes: Other Labs: CBC, BMP 05/01/19 06:15 05/03/19 06:00 Discharge Summary Problems reviewed: Yes Reason For Visit: SOB Current Active Problems Acute on chronic respiratory failure with hypoxia and hypercapnia (Acute) Aortic stenosis (Acute) CHF (congestive heart failure) (Acute) SOB (shortness of breath) (Acute) Troponin I above reference range (Acute) Procedures: Principal: CT SCANS Hospital Course: ADMITTED PNA/CHF/AFIB/COPD ADMITTED FOR RESPIRATORY DISTRESS GIVEN ABX, STEROIDS IV, 02 SUPPORT NOW NEEDS PULMONARY REHAB/SNF Goals: PREDNISONE TAPER, PULMONARY REHAB Condition: Stable - Instructions Diet, Activity, Other Instructions: RESPIRATORY PULMONARY CONSULT AND REHAB MONITOR PREDNISONE TAPER AND LABS Referrals: Aman Russell MD [Primary Care Provider] - Disposition: LONG TERM FACILITY - Home Medications Comprehensive Discharge Medication List: Ambulatory Orders Rosuvastatin [Crestor -] 20 mg PO DAILY 11/15/16 Aspirin [ASA -] 81 mg PO DAILY #30 tab.chew 11/19/16 Cholecalciferol (Vitamin D3) [Optimal D3] 50,000 unit PO WEEKLY 06/22/17 Dabigatran Etexilate Mesylate [Pradaxa -] 75 mg PO BID 06/22/17 Sitagliptin Phosphate [Januvia -] 50 mg PO DAILY@0700 06/22/17 Diltiazem Cd [Cardizem Cd -] 120 mg PO DAILY cap.cd.24h 07/07/17 Digoxin [Lanoxin -] 0.125 mg PO HS 02/08/19 Furosemide [Lasix -] 60 mg PO DAILY 02/08/19 Glyburide 5 mg PO DAILY 02/08/19 Linaclotide [Linzess] 72 mcg PO DAILY 02/08/19 Losartan Potassium 50 mg PO DAILY 04/22/19 Acetaminophen [Tylenol .Regular Strength -] 650 mg PO Q6H PRN tablet 05/03/19 Diazepam [Valium] 2 mg PO Q12H PRN tablet MDD 2 05/03/19 Docusate Sodium [Colace -] 100 mg PO BID PRN capsule 05/03/19 Furosemide [Lasix -] 40 mg PO DAILY tablet 05/03/19 Glycerin Suppository Adult - 1 each [place] DAILY PRN supp.rect 05/03/19 Insulin Sliding Scale [Novolog Vial Sliding Scale -] 1 vial SQ ACHS units 05/02 Pantoprazole Sodium [Protonix -] 40 mg PO DAILY tablet.ec 05/03/19 predniSONE [Deltasone -] See Taper PO BID tablet 05/03/19
[2019-05-03] MEDS ORDERED: PT OWN MED DRAWER 7, Y5N ONE (08:57)
[2019-05-03] MEDS: ASPIRIN 81 MG CHEWABLE TABLETS PO SCH (09:21)
[2019-05-03] MEDS: FUROSEMIDE 40 MG TABLET (FP) PO SCH (09:21)
[2019-05-03] MEDS: predniSONE 10 MG TABLET (UD) PO SCH (09:21)
[2019-05-03] MEDS: DABIGATRAN ETEXILATE MESYLATE 75 MG CAPSULE PO SCH (09:22)
[2019-05-03] MEDS: PANTOPRAZOLE 40 MG TABLET PO SCH (09:22)
[2019-05-03] MEDS: DOCUSATE SODIUM 100 MG CAPSULE (FP) PO PRN (10:40)
--- NOTE | 2019-05-03 10:40 | PN ---
Progress Note, Physician History of Present Illness: pulmonary alert,comfortable,-resp distress - Current Medication List Current Medications: Active Medications Acetaminophen (Tylenol -) 650 mg PO Q6H PRN PRN Reason: PAIN LEVEL 1-5 Albuterol Sulfate (Ventolin 0.042trength) -) 1 amp NEB Q4H PRN PRN Reason: SHORT OF BREATH/WHEEZING Last Admin: 05/01/19 03:25 Dose: 1 amp Albuterol/Ipratropium (Duoneb -) 1 amp NEB RQID [facility] Last Admin: 05/02/19 21:20 Dose: 1 amp Aspirin (Asa -) 81 mg PO DAILY [facility] Last Admin: 05/03/19 09:21 Dose: 81 mg Dabigatran (Pradaxa -) 75 mg PO BID [facility] Last Admin: 05/03/19 09:22 Dose: 75 mg Diazepam (Valium -) 2 mg PO Q12H PRN PRN Reason: ANXIETY Last Admin: 04/28/19 09:48 Dose: 2 mg Diltiazem HCl (Cardizem Cd -) 120 mg PO DAILY [facility] Last Admin: 05/03/19 09:22 Dose: 120 mg Docusate Sodium (Colace -) 100 mg PO BID PRN PRN Reason: CONSTIPATION Last Admin: 04/30/19 09:29 Dose: 100 mg Furosemide (Lasix -) 40 mg PO DAILY [facility] Last Admin: 05/03/19 09:21 Dose: 40 mg Glycerin (Glycerin Suppository Adult -) 1 each [place] DAILY PRN PRN Reason: CONSTIPATION Last Admin: 04/29/19 10:19 Dose: 1 each Insulin Aspart (Novolog Vial Sliding Scale -) 1 vial SQ [facility]; Protocol Last Admin: 05/03/19 06:09 Dose: Not Given Insulin Detemir (Levemir Vial) 10 units SQ AM [facility] Last Admin: 05/03/19 06:09 Dose: 10 units Pantoprazole Sodium (Protonix -) 40 mg PO DAILY [facility] Last Admin: 05/03/19 09:22 Dose: 40 mg Prednisone (Deltasone -) 30 mg PO BID [facility] Last Admin: 05/03/19 09:21 Dose: 30 mg Rosuvastatin Calcium (Crestor -) 20 mg PO HS [facility] Last Admin: 05/02/19 23:14 Dose: 20 mg - Objective Vital Signs: Vital Signs Temperature 97.9 F 05/03/19 08:25 Pulse Rate 72 05/03/19 08:25 Respiratory Rate 20 05/03/19 08:27 Blood Pressure 132/68 05/03/19 08:25 O2 Sat by Pulse Oximetry (%) 100 05/02/19 21:00 Constitutional: Yes: No Distress, Calm Eyes: Yes: WNL HENT: Yes: WNL Neck: Yes: WNL Cardiovascular: Yes: Pulse Irregular, S1, S2 Respiratory: Yes: Rales (few bibasilar crackles) Gastrointestinal: Yes: Normal Bowel Sounds, Soft Extremities: Yes: WNL Edema: No Labs: CBC, BMP 05/03/19 06:00 INR, PTT INR 1.40 (0.83-1.09) H 04/21/19 13:40 - ....Imaging Chest X-ray: Report Reviewed, Image Reviewed Problem List - Problems (1) Acute on chronic respiratory failure with hypoxia and hypercapnia Code(s): J96.21 - ACUTE AND CHRONIC RESPIRATORY FAILURE WITH HYPOXIA; J96.22 - ACUTE AND CHRONIC RESPIRATORY FAILURE WITH HYPERCAPNIA (2) SOB (shortness of breath) Code(s): R06.02 - SHORTNESS OF BREATH (3) MURALI (acute kidney injury) Code(s): N17.9 - ACUTE KIDNEY FAILURE, UNSPECIFIED (4) Atrial fibrillation Code(s): I48.91 - UNSPECIFIED ATRIAL FIBRILLATION Qualifiers: Atrial fibrillation type: chronic (5) CAD S/P percutaneous coronary angioplasty Code(s): I25.10 - ATHSCL HEART DISEASE OF [place] CORONARY ARTERY W/O ANG PCTRS; Z98.61 - CORONARY ANGIOPLASTY STATUS (6) CHF exacerbation Code(s): I50.9 - HEART FAILURE, UNSPECIFIED Qualifiers: Heart failure type: unspecified Qualified Code(s): I50.9 - Heart failure, unspecified (7) Diabetes Code(s): E11.9 - TYPE 2 DIABETES MELLITUS WITHOUT COMPLICATIONS Qualifiers: Diabetes mellitus type: other specified (including YULISA) Diabetes mellitus intermediate insulin use: with intermediate use Diabetes mellitus complication status: with unspecified complications (8) Dyslipidemia Code(s): E78.5 - HYPERLIPIDEMIA, UNSPECIFIED (9) Mitral valve regurgitation Code(s): I34.0 - NONRHEUMATIC MITRAL (VALVE) INSUFFICIENCY Qualifiers: Cardiac valve disease etiology: etiology unspecified Qualified Code(s): I34.0 - Nonrheumatic mitral (valve) insufficiency (10) Troponin I above reference range Code(s): R79.89 - OTHER SPECIFIED ABNORMAL FINDINGS OF BLOOD CHEMISTRY (11) Aortic stenosis Code(s): I35.0 - NONRHEUMATIC AORTIC (VALVE) STENOSIS Assessment/Plan IMP ACUTE ON CHRONIC HYPOXEMIC/HYPERCAPNEIC RESPIRATORY FAILURE IMPROVED COPD EXACERBATION IMPROVED CHF AFIB ASHD S/P STENT SEVERE PULMONARY HTN 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 PLAN PREDNISONE LASIX INHALED BRONCHODILATORS SUPPLEMENTAL O2 NIPPV NEEDED REPLETE K DR LORA Problem List - Problems (1) Acute on chronic respiratory failure with hypoxia and hypercapnia Code(s): J96.21 - ACUTE AND CHRONIC RESPIRATORY FAILURE WITH HYPOXIA; J96.22 - ACUTE AND CHRONIC RESPIRATORY FAILURE WITH HYPERCAPNIA (2) SOB (shortness of breath) Code(s): R06.02 - SHORTNESS OF BREATH (3) MURALI (acute kidney injury) Code(s): N17.9 - ACUTE KIDNEY FAILURE, UNSPECIFIED (4) Atrial fibrillation Code(s): I48.91 - UNSPECIFIED ATRIAL FIBRILLATION Qualifiers: Atrial fibrillation type: chronic (5) CAD S/P percutaneous coronary angioplasty Code(s): I25.10 - ATHSCL HEART DISEASE OF [place] CORONARY ARTERY W/O ANG PCTRS; Z98.61 - CORONARY ANGIOPLASTY STATUS (6) CHF exacerbation Code(s): I50.9 - HEART FAILURE, UNSPECIFIED Qualifiers: Heart failure type: unspecified Qualified Code(s): I50.9 - Heart failure, unspecified (7) Diabetes Code(s): E11.9 - TYPE 2 DIABETES MELLITUS WITHOUT COMPLICATIONS Qualifiers: Diabetes mellitus type: other specified (including YULISA) Diabetes mellitus 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
--- NOTE | 2019-05-03 12:05 | PN ---
Progress Note (short form) - Note Progress Note: Renal follow up for MURALI Seen and examined at the bedside awake and alert sob is improved, no cough, chest pain blood sugars high and is is concern no abd pain, N/V/D making urine Vital Signs Temperature 97.9 F 05/03/19 08:25 Pulse Rate 72 05/03/19 08:25 Respiratory Rate 20 05/03/19 08:27 Blood Pressure 132/68 05/03/19 08:25 O2 Sat by Pulse Oximetry (%) 100 05/02/19 21:00 Intake & Output 04/30/19 05/01/19 05/02/19 05/03/19 23:59 23:59 23:59 23:59 Intake Total 1160 1390 440 60 Balance 1160 1390 440 60 Weight 55.066 kg 54.703 kg 54.794 kg NAD RRR Dec BS at bases no rales soft NT/ND, no rebound or guarding no LE edema, clubbing or cyanosis no focal neurologic deficits CBC, BMP 05/01/19 06:15 05/03/19 06:00 Current Medications Acetaminophen (Tylenol -) 650 mg PO Q6H PRN PRN Reason: PAIN LEVEL 1-5 Albuterol Sulfate (Ventolin 0.042trength) -) 1 amp NEB Q4H PRN PRN Reason: SHORT OF BREATH/WHEEZING Last Admin: 05/01/19 03:25 Dose: 1 amp Albuterol/Ipratropium (Duoneb -) 1 amp NEB RQID [facility] Last Admin: 05/03/19 11:42 Dose: 1 amp Aspirin (Asa -) 81 mg PO DAILY [facility] Last Admin: 05/03/19 09:21 Dose: 81 mg Dabigatran (Pradaxa -) 75 mg PO BID [facility] Last Admin: 05/03/19 09:22 Dose: 75 mg Diazepam (Valium -) 2 mg PO Q12H PRN PRN Reason: ANXIETY Last Admin: 04/28/19 09:48 Dose: 2 mg Diltiazem HCl (Cardizem Cd -) 120 mg PO DAILY [facility] Last Admin: 05/03/19 09:22 Dose: 120 mg Docusate Sodium (Colace -) 100 mg PO BID PRN PRN Reason: CONSTIPATION Last Admin: 05/03/19 10:40 Dose: 100 mg Furosemide (Lasix -) 40 mg PO DAILY [facility] Last Admin: 05/03/19 09:21 Dose: 40 mg Glycerin (Glycerin Suppository Adult -) 1 each MA DAILY PRN PRN Reason: CONSTIPATION Last Admin: 04/29/19 10:19 Dose: 1 each Insulin Aspart (Novolog Vial Sliding Scale -) 1 vial SQ ACHS [facility]; Protocol Last Admin: 05/03/19 11:30 Dose: 10 units Insulin Detemir (Levemir Vial) 10 units SQ AM [facility] Last Admin: 05/03/19 06:09 Dose: 10 units Pantoprazole Sodium (Protonix -) 40 mg PO DAILY [facility] Last Admin: 05/03/19 09:22 Dose: 40 mg Prednisone (Deltasone -) 30 mg PO BID [facility] Last Admin: 05/03/19 09:21 Dose: 30 mg Rosuvastatin Calcium (Crestor -) 20 mg PO HS [facility] Last Admin: 05/02/19 23:14 Dose: 20 mg 84 year old woman with history of COPD, CHF, CAD, hypertension, MVR, DM and atrial fibrillation who presented with shortness of breath and and admitted for CHF exacerbation with MURALI. 1. Acute kidney injury in setting of CHF 2. CHF exacerbation 3. CAD 4. COPD 5. DM 6. Metabolic acidosis Renal function is improved. no electrolyte abnormalities. Volume status improved no evidence of obstruction on Renal US Continue Lasix 40mg daily for now as volume status is better. Titrate as needed Would hold MANDY/ARB for now until renal function returns to baseline. Trend renal function and electrolytes daily Trend Phos and Mg BUN is disproportionately elevated due to steroids and not a reflection of uremia. Trend serum bicarb start potassium chloride 20meq daily. Thank you Luis Orlando DO
--- NOTE | 2019-05-03 15:33 | PN ---
Progress Note, Physician Chief Complaint: The patient appears comfortable with improved SOB. No chest pain or palpitation. Tele shows atrial fibrillation with controlled VR, 80s BPM and single VPCs. History of Present Illness: 84 year-old woman with a PMHx of long standing persistent atrial fibrillation, CAD s/p previous stents and last cath in 2017 showed patent vessels, recent stress test showed fixed defects and no ischemia, syncope, NSVT, post ILR placement, chronic diastolic CHF, severe pulm HTN and chronic TP elevation SOB is multifactorial component of CHF but currently more c/w COPD and ILD exacerbation. - Current Medication List Current Medications: Active Medications Acetaminophen (Tylenol -) 650 mg PO Q6H PRN PRN Reason: PAIN LEVEL 1-5 Albuterol Sulfate (Ventolin 0.042trength) -) 1 amp NEB Q4H PRN PRN Reason: SHORT OF BREATH/WHEEZING Last Admin: 05/01/19 03:25 Dose: 1 amp Albuterol/Ipratropium (Duoneb -) 1 amp NEB RQID [facility] Last Admin: 05/03/19 11:42 Dose: 1 amp Aspirin (Asa -) 81 mg PO DAILY [facility] Last Admin: 05/03/19 09:21 Dose: 81 mg Dabigatran (Pradaxa -) 75 mg PO BID [facility] Last Admin: 05/03/19 09:22 Dose: 75 mg Diazepam (Valium -) 2 mg PO Q12H PRN PRN Reason: ANXIETY Last Admin: 04/28/19 09:48 Dose: 2 mg Diltiazem HCl (Cardizem Cd -) 120 mg PO DAILY [facility] Last Admin: 05/03/19 09:22 Dose: 120 mg Docusate Sodium (Colace -) 100 mg PO BID PRN PRN Reason: CONSTIPATION Last Admin: 05/03/19 10:40 Dose: 100 mg Furosemide (Lasix -) 40 mg PO DAILY [facility] Last Admin: 05/03/19 09:21 Dose: 40 mg Glycerin (Glycerin Suppository Adult -) 1 each AR DAILY PRN PRN Reason: CONSTIPATION Last Admin: 04/29/19 10:19 Dose: 1 each Insulin Aspart (Novolog Vial Sliding Scale -) 1 vial SQ ACHS [facility]; Protocol Last Admin: 05/03/19 11:30 Dose: 10 units Insulin Detemir (Levemir Vial) 10 units SQ AM [facility] Last Admin: 05/03/19 06:09 Dose: 10 units Pantoprazole Sodium (Protonix -) 40 mg PO DAILY [facility] Last Admin: 05/03/19 09:22 Dose: 40 mg Potassium Chloride (K-Dur -) 20 meq PO DAILY [facility] Prednisone (Deltasone -) 30 mg PO BID [facility] Last Admin: 05/03/19 09:21 Dose: 30 mg Rosuvastatin Calcium (Crestor -) 20 mg PO HS [facility] Last Admin: 05/02/19 23:14 Dose: 20 mg - Objective Vital Signs: Vital Signs Temperature 97.8 F 05/03/19 13:57 Pulse Rate 82 05/03/19 13:57 Respiratory Rate 20 05/03/19 13:57 Blood Pressure 132/52 L 05/03/19 13:57 O2 Sat by Pulse Oximetry (%) 100 05/02/19 21:00 General: Well developed. Chronic ill and frail. No acute distress. Head: Normocephalic. Atraumatic, Eyes: PERRLA, EOMI. Sclerae anicteric. Conjunctivae clear. Neck: Supple. No JVD. No bruits. Heart: Normal S1, S2: Irregular rhythm and rate. II/ ADAM with reduced A2. Lungs: Symmetrical poor air entry. Clear to auscultation. Abdomen: Soft. Bowel sound positive. Non tender. No masses. Extremities: No edema. No clubbing or cyanosis. PD 2+, equal bilaterally. Neuro: Intact, no focal findings. AAO X3. Labs: CBC, BMP 05/01/19 06:15 05/03/19 06:00 INR, PTT INR 1.40 (0.83-1.09) H 04/21/19 13:40 Assessment/Plan 84 year-old woman with a PMHx of long standing persistent atrial fibrillation, CAD s/p previous stents and last cath in 2017 showed patent vessels, recent stress test showed fixed defects and no ischemia, syncope, NSVT, post ILR placement, chronic diastolic CHF, severe pulm HTN and chronic TP elevation SOB is multifactorial component of CHF but currently more c/w COPD and ILD exacerbation. 1. CAD Stable Has chronic TP elevation unchanged from prior. No myocardial ischemia. 2. CHF Acute diastolic CHF, ho mitral regurgitation and mild-moderate Aortic stenosis. Volume stable on PO furosemide Monitor weight and I/Os monitor blood work bun/creat, electrolytes and replete as needed 3. Afib HR controlled and no significant pauses noted Continue with diltiazem. Continue pradaxa 4. NSVT No further long runs of nsvt occasional 3 beats of NSVT with ichemic heart disease. Not on BB due to severity of lung disease. Monitor electrolytes daily. 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 Please do not hesitate to call us for reconsult at any time if any further questions or additional issue arises regarding this patient.
[2019-05-03] MEDS ORDERED: INSULIN (NOVOLOG) ASPART 100 UNITS/ML 10ML VIAL ONE (17:09)
[2019-05-03 17:16] VITALS: BP 137/78; PULSE 78; TEMP 97.2
[2019-05-04] MEDS ORDERED: POTASSIUM CHLORIDE TABS 20 MEQ TABLET.ER (FP) PO SCH (10:00)
== END 2019-05-03 19:14 | DRG 291 ==
LOC: JER 13:18 → SUPCPDRO 13:18 → JERBED 15:35 → J4W 18:49
PROVIDERS: ADMIT Family Medicine; ATTEND Family Medicine
PROC: 3E0F7GC Introduction of Other Therapeutic Substance into Respiratory Tract, Via Natural or Artificial Opening (ICD-10-PCS; principal; 2019-05-01)
PROC: 5A09457 Assistance with Respiratory Ventilation, 24-96 Consecutive Hours, Continuous Positive Airway Pressure (ICD-10-PCS; 2019-05-01)
DX: I13.0 Hypertensive heart and chronic kidney disease with heart failure and stage 1 through stage 4 chronic kidney disease, or unspecified chronic kidney disease (principal); J18.9 Pneumonia, unspecified organism; J96.21 Acute and chronic respiratory failure with hypoxia; J96.22 Acute and chronic respiratory failure with hypercapnia; I50.33 Acute on chronic diastolic (congestive) heart failure; I26.99 Other pulmonary embolism without acute cor pulmonale; J96.92 Respiratory failure, unspecified with hypercapnia; J44.1 Chronic obstructive pulmonary disease with (acute) exacerbation; I48.20 Chronic atrial fibrillation, unspecified; N17.9 Acute kidney failure, unspecified; J98.11 Atelectasis; I47.2 Ventricular tachycardia; E11.65 Type 2 diabetes mellitus with hyperglycemia; E11.22 Type 2 diabetes mellitus with diabetic chronic kidney disease; I34.0 Nonrheumatic mitral (valve) insufficiency; I25.10 Atherosclerotic heart disease of native coronary artery without angina pectoris; I27.20 Pulmonary hypertension, unspecified; I25.9 Chronic ischemic heart disease, unspecified; J40 Bronchitis, not specified as acute or chronic; G47.30 Sleep apnea, unspecified; E78.5 Hyperlipidemia, unspecified; I35.0 Nonrheumatic aortic (valve) stenosis; N18.9 Chronic kidney disease, unspecified; J84.10 Pulmonary fibrosis, unspecified; F51.9 Sleep disorder not due to a substance or known physiological condition, unspecified; R05 Cough; M54.5 Low back pain; R79.89 Other specified abnormal findings of blood chemistry; E78.00 Pure hypercholesterolemia, unspecified; Z87.891 Personal history of nicotine dependence; Z99.81 Dependence on supplemental oxygen; Z95.5 Presence of coronary angioplasty implant and graft; Z79.4 Long term (current) use of insulin
CPT/HCPCS: 36415; 36600; 71045-TC-FY; 71250-TC; 76604; 76775-TC; 80048; 80053; 81003; 82550; 82565; 82570; 82803; 82947; 82962; 83036; 83540; 83550; 83735; 83880; 84100; 84156; 84443; 84484; 84540; 85025; 85027; 85379; 85610; 87040; 87205; 87804; 87899; 93005; 93010; 94640; 94660; 97116-GP; 97162-GP; 99291